=== PATIENT | male | born 1950 | race African-American/Black ===

== ENCOUNTER 2016-11-06 07:15 | Day surgery (SDC) | payer MEDICARE ==
[2016-11-06] MEDS ORDERED: PALONOSETRON HCL 0.25 MG in SODIUM CHLORIDE 50 ML IVPB ONE (08:00)
[2016-11-06] MEDS ORDERED: DEXAMETHASONE INJECTION 20 MG in SODIUM CHLORIDE 50 ML IVPB ONE (08:00)
[2016-11-06] MEDS ORDERED: CYANOCOBALAMIN (VITAMIN B-12) 1000 MCG/1 ML VIAL IM ONE (08:00)
[2016-11-06] MEDS ORDERED: SODIUM CHLORIDE IVPB ONE ×2 (08:30→08:40)
[2016-11-06] MEDS ORDERED: PEMETREXED DISODIUM IVPB ONE (08:30)
[2016-11-06] MEDS ORDERED: CARBOPLATIN IVPB ONE (08:40)
[2016-11-06 10:04] LABS: BASOPHIL 1.2 % (0-2.0); EOSINOPHIL 8.6 % (0-4.5); MCH 29.1 pg (25.7-33.7); MCHC 33.1 g/dl (32.0-35.9); MEAN PLT VOLUME 8.1 fl (7.5-11.1); NEUTROPHILS 47.6 % (42.8-82.8); PLATELET COUNT 276 K/MM3 (134-434); RDW 13.8 % (11.9-15.9); WHITE BLOOD COUNT 5.1 K/mm3 (4.0-10.0)
[2016-11-06] MEDS ORDERED: D5-1/2NS+20 MEQ KCL - 1,000 ML IV SCH ×2 (12:30→15:00)
[2016-11-06] MEDS ORDERED: amLODIPine BESYLATE 5 MG TABLET (FP) PO ONE (12:30)
[2016-11-06 14:17] LABS: ALBUMIN 3.9 g/dl (3.4-5.0); BILIRUBIN,DIRECT 0.1 mg/dL (0.0-0.2)
[2016-11-06 14:19] LABS: BILIRUBIN,TOTAL 0.4 mg/dL (0.2-1.0)
[2016-11-06] MEDS ORDERED: PORTA CATH FLUSH 10 ML IVPUSH ONE (16:10)
[2016-11-06 17:42] VITALS: BP 154/92; PULSE 70
[2016-11-06 17:43] VITALS: TEMP 98.3
== END 2016-11-06 18:44 | disposition home or self-care (01) ==
LOC: JONCCHEMO 07:15 → J7W 11:38 → JONCCHEMO 18:44
PROVIDERS: ATTEND Internal Medicine Hematology & Oncology
PROC: 3E04305 Introduction of Other Antineoplastic into Central Vein, Percutaneous Approach (ICD-10-PCS; principal; 2016-11-06)
PROC: 3E043GC Introduction of Other Therapeutic Substance into Central Vein, Percutaneous Approach (ICD-10-PCS; 2016-11-06)
PROC: 3E0437Z Introduction of Electrolytic and Water Balance Substance into Central Vein, Percutaneous Approach (ICD-10-PCS; 2016-11-06)
PROC: 3E023GC Introduction of Other Therapeutic Substance into Muscle, Percutaneous Approach (ICD-10-PCS; 2016-11-06)
DX: Z51.11 Encounter for antineoplastic chemotherapy (principal); C45.0 Mesothelioma of pleura
CPT/HCPCS: 96361; 96372; 96375; 96411; 96413; J9045; J9305; 36415; 71020-TC; 80076; 85025; 96360; 96367; 96417; J2469

== ENCOUNTER 2016-11-07 07:17 | Day surgery (SDC) | payer MEDICARE ==
[2016-11-07] MEDS ORDERED: PEGFILGRASTIM 6 MG/0.6 ML DISP.SYRIN SQ ONE (08:00)
[2016-11-07] MEDS ORDERED: amLODIPine BESYLATE 5 MG TABLET (FP) PO ONE (09:45)
[2016-11-07 12:50] VITALS: BP 133/89; PULSE 81; TEMP 98
== END 2016-11-07 19:09 | disposition home or self-care (01) ==
LOC: JONCNONCHE 07:17 → J7W 09:34 → JONCNONCHE 19:09
PROVIDERS: ATTEND Internal Medicine Hematology & Oncology
PROC: 3E013GC Introduction of Other Therapeutic Substance into Subcutaneous Tissue, Percutaneous Approach (ICD-10-PCS; principal; 2016-11-07)
DX: C45.0 Mesothelioma of pleura (principal)
CPT/HCPCS: 96372; J2505

== ENCOUNTER 2016-11-27 07:26 | Day surgery (SDC) | payer MEDICARE ==
[2016-11-27] MEDS ORDERED: PALONOSETRON HCL 0.25 MG in SODIUM CHLORIDE 50 ML IVPB ONE (10:00)
[2016-11-27] MEDS ORDERED: CYANOCOBALAMIN (VITAMIN B-12) 1000 MCG/1 ML VIAL IM ONE (10:00)
[2016-11-27] MEDS ORDERED: DEXAMETHASONE INJECTION 10 MG in SODIUM CHLORIDE 50 ML IVPB ONE (10:00)
[2016-11-27] MEDS ORDERED: PEMETREXED DISODIUM IVPB ONE (10:30)
[2016-11-27] MEDS ORDERED: SODIUM CHLORIDE IVPB ONE ×4 (10:30→15:00)
[2016-11-27] MEDS ORDERED: CARBOPLATIN IVPB ONE ×3 (10:40→15:00)
[2016-11-27 10:57] LABS: MCH 29.4 pg (25.7-33.7); MCHC 33.9 g/dl (32.0-35.9); MEAN CELL VOLUME 86.9 fl (80-96); MEAN PLT VOLUME 7.9 fl (7.5-11.1); NEUTROPHILS 47.8 % (42.8-82.8); PLATELET COUNT 298 K/MM3 (134-434); RDW 14.6 % (11.9-15.9); WHITE BLOOD COUNT 4.4 K/mm3 (4.0-10.0)
[2016-11-27 11:22] LABS: ALBUMIN 3.8 g/dl (3.4-5.0); BILIRUBIN,TOTAL 0.3 mg/dL (0.2-1.0); CALCIUM 9.1 mg/dL (8.5-10.1); CREATININE 1.4 mg/dL (0.7-1.3); MAGNESIUM 2.2 mg/dL (1.8-2.4); TOT PROT 7.1 g/dl (6.4-8.2)
[2016-11-27] MEDS ORDERED: SODIUM CHLORIDE 250 ML IV ONE ×2 (14:45→17:30)
[2016-11-27] MEDS ORDERED: PORTA CATH FLUSH 10 ML IVPUSH ONE (15:11)
[2016-11-27] MEDS ORDERED: amLODIPine BESYLATE 5 MG TABLET (FP) PO ONE (19:49)
[2016-11-27] MEDS ORDERED: PANTOPRAZOLE 40 MG TABLET (FP) PO ONE (20:06)
[2016-11-27 20:27] VITALS: BP 157/95; PULSE 72; TEMP 98.1
== END 2016-11-27 20:30 | disposition home or self-care (01) ==
LOC: JONCCHEMO 07:26 → J7W 12:19 → JONCCHEMO 20:30
PROVIDERS: ATTEND Internal Medicine Hematology & Oncology
DX: Z51.11 Encounter for antineoplastic chemotherapy (principal); C45.0 Mesothelioma of pleura
CPT/HCPCS: 36415; 80053; 83735; 85025; 96360; 96361; 96367; 96375; 96411; 96413; 96415; 96417; J2469; J9305

== ENCOUNTER 2016-11-28 07:18 | Day surgery (SDC) | payer MEDICARE ==
[2016-11-28] MEDS ORDERED: PEGFILGRASTIM 6 MG/0.6 ML DISP.SYRIN SQ ONE (10:00)
[2016-11-28 11:33] VITALS: BP 146/85; PULSE 72; TEMP 98.3
== END 2016-11-28 11:35 | disposition home or self-care (01) ==
LOC: JONCCHEMO 07:18 → J7W 11:05 → JONCCHEMO 11:35
PROVIDERS: ATTEND Internal Medicine Hematology & Oncology
PROC: 3E013GC Introduction of Other Therapeutic Substance into Subcutaneous Tissue, Percutaneous Approach (ICD-10-PCS; principal; 2016-11-28)
DX: C45.0 Mesothelioma of pleura (principal)
CPT/HCPCS: 96372; J2505

== ENCOUNTER 2016-12-18 07:20 | Day surgery (SDC) | payer MEDICARE ==
[2016-12-18] MEDS ORDERED: DEXAMETHASONE INJECTION 10 MG in SODIUM CHLORIDE 50 ML IVPB ONE (10:00)
[2016-12-18] MEDS ORDERED: SODIUM CHLORIDE 250 ML IV ONE (10:00)
[2016-12-18] MEDS ORDERED: CYANOCOBALAMIN (VITAMIN B-12) 1000 MCG/1 ML VIAL IM ONE (10:00)
[2016-12-18] MEDS ORDERED: PALONOSETRON HCL 0.25 MG in SODIUM CHLORIDE 50 ML IVPB ONE (10:00)
[2016-12-18] MEDS ORDERED: SODIUM CHLORIDE IVPB ONE ×2 (10:30→10:40)
[2016-12-18] MEDS ORDERED: PEMETREXED DISODIUM IVPB ONE (10:30)
[2016-12-18] MEDS ORDERED: CARBOPLATIN IVPB ONE (10:40)
[2016-12-18 11:00] LABS: BASOPHIL 1.3 % (0-2.0); EOSINOPHIL 3.9 % (0-4.5); MCH 29.3 pg (25.7-33.7); MCHC 33.7 g/dl (32.0-35.9); MEAN CELL VOLUME 87.1 fl (80-96); MEAN PLT VOLUME 7.8 fl (7.5-11.1); NEUTROPHILS 33.8 % (42.8-82.8); PLATELET COUNT 299 K/MM3 (134-434); RDW 14.5 % (11.9-15.9); WHITE BLOOD COUNT 3.3 K/mm3 (4.0-10.0)
[2016-12-18 11:23] LABS: ALBUMIN 4.1 g/dl (3.4-5.0); ALK PHOS 81 U/L (45-117); ANION GAP 3 (8-16); BILIRUBIN,DIRECT 0.1 mg/dL (0.0-0.2); BILIRUBIN,TOTAL 0.4 mg/dL (0.2-1.0); CALCIUM 9.5 mg/dL (8.5-10.1); CO2 33 mmol/L (21-32); CREATININE 1.3 mg/dL (0.7-1.3); GLUCOSE,RANDOM 91 mg/dL (74-106); MAGNESIUM 2.2 mg/dL (1.8-2.4); SGOT/AST 33 U/L (15-37); SGPT/ALT 53 U/L (12-78); TOT PROT 7.5 g/dl (6.4-8.2)
[2016-12-18] MEDS ORDERED: PORTA CATH FLUSH 10 ML IVPUSH ONE (11:53)
[2016-12-18 15:34] VITALS: BP 145/96; PULSE 67; TEMP 98.1
== END 2016-12-18 17:56 | disposition home or self-care (01) ==
LOC: JONCCHEMO 07:20 → J7W 11:45 → JONCCHEMO 17:56
PROVIDERS: ATTEND Internal Medicine Hematology & Oncology
PROC: 3E04305 Introduction of Other Antineoplastic into Central Vein, Percutaneous Approach (ICD-10-PCS; principal; 2016-12-18)
PROC: 3E043GC Introduction of Other Therapeutic Substance into Central Vein, Percutaneous Approach (ICD-10-PCS; 2016-12-18)
PROC: 3E0437Z Introduction of Electrolytic and Water Balance Substance into Central Vein, Percutaneous Approach (ICD-10-PCS; 2016-12-18)
DX: Z51.11 Encounter for antineoplastic chemotherapy (principal); C45.0 Mesothelioma of pleura
CPT/HCPCS: 96361; 96375; 96411; 96413; J9045; J9305; 36415; 80053; 80076; 83735; 85025; 96417; J2469

== ENCOUNTER 2016-12-19 07:42 | Day surgery (SDC) | payer MEDICARE ==
[2016-12-19] MEDS ORDERED: PEGFILGRASTIM 6 MG/0.6 ML DISP.SYRIN SQ ONE (10:00)
[2016-12-19 11:32] VITALS: BP 135/85; PULSE 75; TEMP 98
== END 2016-12-19 12:32 | disposition home or self-care (01) ==
LOC: JONCCHEMO 07:42 → J7W 11:29 → JONCCHEMO 12:32
PROVIDERS: ATTEND Internal Medicine Hematology & Oncology
PROC: 3E013GC Introduction of Other Therapeutic Substance into Subcutaneous Tissue, Percutaneous Approach (ICD-10-PCS; principal; 2016-12-19)
DX: C45.0 Mesothelioma of pleura (principal); I10 Essential (primary) hypertension; E78.00 Pure hypercholesterolemia, unspecified; M19.91 Primary osteoarthritis, unspecified site; Z87.891 Personal history of nicotine dependence
CPT/HCPCS: 96372; J2505

== ENCOUNTER 2017-01-08 07:44 | Day surgery (SDC) | payer MEDICARE ==
[2017-01-08] MEDS ORDERED: SODIUM CHLORIDE 250 ML IV ONE (08:00)
[2017-01-08] MEDS ORDERED: DEXAMETHASONE INJECTION 10 MG in SODIUM CHLORIDE 50 ML IVPB ONE (08:30)
[2017-01-08] MEDS ORDERED: CYANOCOBALAMIN (VITAMIN B-12) 1000 MCG/1 ML VIAL IM ONE (08:30)
[2017-01-08] MEDS ORDERED: PALONOSETRON HCL 0.25 MG in SODIUM CHLORIDE 50 ML IVPB ONE (08:30)
[2017-01-08] MEDS ORDERED: SODIUM CHLORIDE IVPB ONE ×3 (09:00→13:30)
[2017-01-08] MEDS ORDERED: PEMETREXED DISODIUM IVPB ONE (09:00)
[2017-01-08] MEDS ORDERED: CARBOPLATIN IVPB ONE ×2 (09:10→13:30)
[2017-01-08 10:23] LABS: BASOPHIL 1.5 % (0-2.0); EOSINOPHIL 6.4 % (0-4.5); MCH 30.4 pg (25.7-33.7); MCHC 34.6 g/dl (32.0-35.9); MEAN CELL VOLUME 87.7 fl (80-96); MEAN PLT VOLUME 6.6 fl (7.5-11.1); NEUTROPHILS 47.1 % (42.8-82.8); PLATELET COUNT 209 K/MM3 (134-434); RDW 16.6 % (11.9-15.9); WHITE BLOOD COUNT 3.6 K/mm3 (4.0-10.0)
[2017-01-08 10:40] LABS: ALBUMIN 3.8 g/dl (3.4-5.0); ANION GAP 7 (8-16); BILIRUBIN,DIRECT 0.1 mg/dL (0.0-0.2); BILIRUBIN,TOTAL 0.6 mg/dL (0.2-1.0); CALCIUM 9.2 mg/dL (8.5-10.1); CO2 31 mmol/L (21-32); CREATININE 1.4 mg/dL (0.7-1.3); GLUCOSE,RANDOM 97 mg/dL (74-106); MAGNESIUM 2.2 mg/dL (1.8-2.4); SGOT/AST 21 U/L (15-37); SGPT/ALT 36 U/L (12-78)
[2017-01-08 10:42] LABS: ALK PHOS 91 U/L (45-117); TOT PROT 7.1 g/dl (6.4-8.2)
[2017-01-08] MEDS ORDERED: PORTA CATH FLUSH 10 ML IVPUSH ONE (11:57)
[2017-01-08 15:23] VITALS: BP 138/69; PULSE 67; TEMP 98.2
== END 2017-01-08 15:40 | disposition home or self-care (01) ==
LOC: JONCCHEMO 07:44 → J7W 11:55 → JONCCHEMO 15:40
PROVIDERS: ATTEND Internal Medicine Hematology & Oncology
PROC: 3E04305 Introduction of Other Antineoplastic into Central Vein, Percutaneous Approach (ICD-10-PCS; principal; 2017-01-08)
PROC: 3E043GC Introduction of Other Therapeutic Substance into Central Vein, Percutaneous Approach (ICD-10-PCS; 2017-01-08)
PROC: 3E0437Z Introduction of Electrolytic and Water Balance Substance into Central Vein, Percutaneous Approach (ICD-10-PCS; 2017-01-08)
DX: Z51.11 Encounter for antineoplastic chemotherapy (principal); C45.0 Mesothelioma of pleura
CPT/HCPCS: 96361; 96375; 96411; 96413; J9045; J9305; 36415; 80053; 80076; 83735; 85025; 96417; J2469

== ENCOUNTER 2017-01-09 07:29 | Day surgery (SDC) | payer MEDICARE ==
[2017-01-09] MEDS ORDERED: PEGFILGRASTIM 6 MG/0.6 ML DISP.SYRIN SQ ONE (08:00)
[2017-01-09 13:55] VITALS: BP 129/79; PULSE 74; TEMP 98.4
== END 2017-01-09 18:29 | disposition home or self-care (01) ==
LOC: JONCCHEMO 07:29 → J7W 13:40 → JONCCHEMO 18:29
PROVIDERS: ATTEND Internal Medicine Hematology & Oncology
PROC: 3E013GC Introduction of Other Therapeutic Substance into Subcutaneous Tissue, Percutaneous Approach (ICD-10-PCS; principal; 2017-01-09)
DX: C45.0 Mesothelioma of pleura (principal)
CPT/HCPCS: 96372; J2505

== ENCOUNTER 2017-07-07 07:27 | Day surgery (SDC) | payer MEDICARE, OTHER ==
[2017-07-07] MEDS ORDERED: PALONOSETRON HCL 0.25 MG/5 ML VIAL IVPUSH ONE (10:00)
[2017-07-07] MEDS ORDERED: DEXAMETHASONE SOD PHOSPHATE 10 MG/1 ML VIAL IVPUSH ONE (10:00)
[2017-07-07] MEDS ORDERED: CYANOCOBALAMIN (VITAMIN B-12) 1000 MCG/1 ML VIAL IM ONE (10:00)
[2017-07-07] MEDS ORDERED: SODIUM CHLORIDE IVPB ONE ×2 (10:30→10:40)
[2017-07-07] MEDS ORDERED: PEMETREXED DISODIUM IVPB ONE (10:30)
[2017-07-07] MEDS ORDERED: CARBOPLATIN IVPB ONE (10:40)
[2017-07-07 11:46] LABS: BASO % 1.1 % (0-2.0); EOS % 2.7 % (0-4.5); HEMATOCRIT 38.9 % (35.4-49); HEMOGLOBIN 12.7 GM/dL (11.7-16.9); LYMPH % 25.4 % (8-40); MCH 28.8 pg (25.7-33.7); MCHC 32.7 g/dl (32.0-35.9); MEAN CELL VOLUME 88.1 fl (80-96); MEAN PLT VOLUME 7.1 fl (7.5-11.1); MONO % 10.9 % (3.8-10.2); NEUT % 59.9 % (42.8-82.8); PLATELET COUNT 359 K/MM3 (134-434); RBC 4.42 M/mm3 (4.00-5.60); RDW 13.3 % (11.9-15.9); WHITE BLOOD COUNT 6.9 K/mm3 (4.0-10.0)
[2017-07-07 12:13] LABS: ALBUMIN 3.6 g/dl (3.4-5.0); ALK PHOS 64 U/L (45-117); ANION GAP 6 (8-16); BILIRUBIN,DIRECT < 0.2 mg/dL (0.0-0.2); BILIRUBIN,TOTAL 0.6 mg/dL (0.2-1.0); BLOOD UREA NITROGEN 18 mg/dL (7-18); CALCIUM 8.9 mg/dL (8.5-10.1); CHLORIDE 104 mmol/L (98-107); CO2 28 mmol/L (21-32); CREATININE 1.6 mg/dL (0.7-1.3); GLUCOSE,RANDOM 99 mg/dL (74-106); MAGNESIUM 2.3 mg/dL (1.8-2.4); POTASSIUM 4.3 mmol/L (3.5-5.1); SGOT/AST 11 U/L (15-37); SGPT/ALT 19 U/L (12-78); SODIUM 138 mmol/L (136-145); TOT PROT 7.8 g/dl (6.4-8.2)
[2017-07-07] MEDS ORDERED: SODIUM CHLORIDE 250 ML IV ONE (13:30)
[2017-07-07] MEDS ORDERED: amLODIPine BESYLATE 5 MG TABLET (FP) PO ONE (14:00)
[2017-07-07 17:25] VITALS: TEMP 98
[2017-07-07 17:35] VITALS: BP 115/78; PULSE 79
[2017-07-07] MEDS ORDERED: PORTA CATH FLUSH 10 ML IVPUSH ONE (17:35)
== END 2017-07-07 16:45 | disposition home or self-care (01) ==
LOC: JONCCHEMO 07:27 → J7W 13:00 → JONCCHEMO 16:45
PROVIDERS: ATTEND Internal Medicine Hematology & Oncology
PROC: 3E04305 Introduction of Other Antineoplastic into Central Vein, Percutaneous Approach (ICD-10-PCS; principal; 2017-07-07)
PROC: 3E043GC Introduction of Other Therapeutic Substance into Central Vein, Percutaneous Approach (ICD-10-PCS; 2017-07-07)
PROC: 3E0437Z Introduction of Electrolytic and Water Balance Substance into Central Vein, Percutaneous Approach (ICD-10-PCS; 2017-07-07)
DX: Z51.11 Encounter for antineoplastic chemotherapy (principal); C45.0 Mesothelioma of pleura
CPT/HCPCS: 36415; 80053; 80076; 83735; 85025; 96361; 96367; 96372; 96375; 96411; 96413; 96417; J1100; J2469; J9305

== ENCOUNTER 2017-07-08 07:32 | Day surgery (SDC) | payer MEDICARE, OTHER ==
[2017-07-08] MEDS ORDERED: PEGFILGRASTIM 6 MG/0.6 ML DISP.SYRIN SQ ONE (10:00)
[2017-07-08 13:40] VITALS: BP 124/77; PULSE 66; TEMP 98
== END 2017-07-08 14:00 | disposition home or self-care (01) ==
LOC: JONCNONCHE 07:32 → J7W 13:10 → JONCNONCHE 14:00
PROVIDERS: ATTEND Internal Medicine Hematology & Oncology
PROC: 3E013GC Introduction of Other Therapeutic Substance into Subcutaneous Tissue, Percutaneous Approach (ICD-10-PCS; principal; 2017-07-08)
DX: C45.0 Mesothelioma of pleura (principal)
CPT/HCPCS: 96372; 96401; J2505

== ENCOUNTER 2017-07-28 07:28 | Day surgery (SDC) | payer MEDICARE, OTHER ==
[2017-07-28] MEDS ORDERED: SODIUM CHLORIDE 250 ML IV ONE (08:00)
[2017-07-28] MEDS ORDERED: CYANOCOBALAMIN (VITAMIN B-12) 1000 MCG/1 ML VIAL IM ONE (08:30)
[2017-07-28] MEDS ORDERED: DEXAMETHASONE SOD PHOSPHATE 10 MG/1 ML VIAL IVPUSH ONE (08:30)
[2017-07-28] MEDS ORDERED: PALONOSETRON HCL 0.25 MG/5 ML VIAL IVPUSH ONE (08:30)
[2017-07-28 08:59] LABS: EOS % 1.3 % (0-4.5); HEMATOCRIT 35.2 % (35.4-49); HEMOGLOBIN 11.7 GM/dL (11.7-16.9); LYMPH % 22.3 % (8-40); MCH 29.2 pg (25.7-33.7); MCHC 33.3 g/dl (32.0-35.9); MEAN CELL VOLUME 87.8 fl (80-96); MEAN PLT VOLUME 6.9 fl (7.5-11.1); MONO % 14.9 % (3.8-10.2); NEUT % 60.5 % (42.8-82.8); PLATELET COUNT 302 K/MM3 (134-434); RBC 4.01 M/mm3 (4.00-5.60); WHITE BLOOD COUNT 5.4 K/mm3 (4.0-10.0)
[2017-07-28] MEDS ORDERED: SODIUM CHLORIDE IVPB ONE (09:00)
[2017-07-28] MEDS ORDERED: PEMETREXED DISODIUM IVPB ONE (09:00)
[2017-07-28 09:30] LABS: ALBUMIN 3.5 g/dl (3.4-5.0); ALK PHOS 66 U/L (45-117); ANION GAP 5 (8-16); BILIRUBIN,DIRECT < 0.2 mg/dL (0.0-0.2); BILIRUBIN,TOTAL 0.4 mg/dL (0.2-1.0); BLOOD UREA NITROGEN 13 mg/dL (7-18); CALCIUM 8.5 mg/dL (8.5-10.1); CHLORIDE 105 mmol/L (98-107); CO2 30 mmol/L (21-32); CREATININE 1.5 mg/dL (0.7-1.3); GLUCOSE,RANDOM 92 mg/dL (74-106); MAGNESIUM 1.9 mg/dL (1.8-2.4); POTASSIUM 3.9 mmol/L (3.5-5.1); SGOT/AST 13 U/L (15-37); SGPT/ALT 23 U/L (12-78); SODIUM 140 mmol/L (136-145); TOT PROT 7.6 g/dl (6.4-8.2)
[2017-07-28 09:38] VITALS: TEMP 98.4
[2017-07-28] MEDS ORDERED: PORTA CATH FLUSH 10 ML IVPUSH ONE (09:38)
[2017-07-28 15:20] VITALS: BP 130/81; PULSE 87
== END 2017-07-28 12:40 | disposition home or self-care (01) ==
LOC: JONCCHEMO 07:28 → J7W 09:30 → JONCCHEMO 12:40
PROVIDERS: ATTEND Internal Medicine Hematology & Oncology
DX: Z51.11 Encounter for antineoplastic chemotherapy (principal); C45.0 Mesothelioma of pleura
CPT/HCPCS: 36415; 80053; 80076; 83735; 85025; 96361; 96372; 96375; 96411; 96413; 96417; J1100; J2469; J9305

== ENCOUNTER 2017-07-29 07:35 | Day surgery (SDC) | payer MEDICARE, OTHER ==
[2017-07-29] MEDS ORDERED: PEGFILGRASTIM 6 MG/0.6 ML DISP.SYRIN SQ ONE (08:00)
[2017-07-29 11:24] VITALS: BP 130/76; PULSE 73; TEMP 98.3
== END 2017-07-29 11:00 | disposition home or self-care (01) ==
LOC: JONCNONCHE 07:35 → J7W 10:45 → JONCNONCHE 11:00
PROVIDERS: ATTEND Internal Medicine Hematology & Oncology
PROC: 3E013GC Introduction of Other Therapeutic Substance into Subcutaneous Tissue, Percutaneous Approach (ICD-10-PCS; principal; 2017-07-29)
DX: C45.0 Mesothelioma of pleura (principal)
CPT/HCPCS: 96372; J2505

== ENCOUNTER 2017-08-11 12:05 | Observation (INO) | payer MEDICARE, OTHER ==
--- NOTE | 2017-08-11 13:12 | PDOC ---
History of Present Illness - General History Source: Patient Exam Limitations: No Limitations - History of Present Illness Initial Comments: 08/11/17 15:06 The patient is a 67 year old male, with a significant past medical history of Asthma, HLD, CHF, Kidney stones, Mesothelioma who presents to the emergency department with allergic reaction to [place] 3 supplements. Patient reports taking [place] 3 pills 3 days ago when he suddenly broke out in hives. Patient experienced tingling around his lips, hives on abdomen and throat swelling. Patient went to [facility] for these symptoms and was given benadryl and Prednisone. Patients symptom still persist and presents to the ED for further evaluation. Patient denies chest pain, headache or dizziness. Patient denies fever, chills, abdominal pain, nausea, vomit, diarrhea or constipation. Patient denies dysuria, frequency, urgency or hematuria. Patient denies sick contacts or recent travel. Allergies: sulfur Past surgical history: R knee Sx Social history: Former smoker (quit 1 year ago) PCP: Not on staff Hem/Onc: Trent <Jina Ramsussen - Last Filed: 08/11/17 15:06> <Yuki Yusuf - Last Filed: 08/11/17 16:37> - General Chief Complaint: Allergic Reaction Stated Complaint: SOB (PCP SENT) Time Seen by Provider: 08/11/17 12:29 Past History <Jina Rasmussen - Last Filed: 08/11/17 15:06> - Past Medical History Asthma: Yes COPD: No Hypercholesterolemia: Yes Kidney Stones: Yes Lung CA: (MESOTHELIOMA) - Suicide/Smoking/Psychosocial Hx Smoking History: Former smoker Have you smoked in the past 12 months: No If you are a former smoker, when did you quit?: LAST YEAR Information on smoking cessation initiated: No <Yuki Yusuf - Last Filed: 08/11/17 16:37> - Past Medical History Allergies/Adverse Reactions: Allergies Allergy/AdvReac Type Severity Reaction Status Date / Time sulfur [From Sulfur-8] Allergy Mild Rash Verified 08/11/17 12:14 Home Medications: Ambulatory Orders Amlodipine Besylate [Norvasc -] 5 mg PO DAILY 08/11/17 Aspirin [Ecotrin] 81 mg PO DAILY 08/11/17 Carvedilol 12.5 mg PO DAILY 08/11/17 Fenofibrate [Lipofen] 150 mg PO DAILY 08/11/17 Folic Acid 1 mg PO DAILY 08/11/17 Furosemide [Lasix] 40 mg PO DAILY 08/11/17 Losartan Potassium 25 mg PO DAILY 08/11/17 Omeprazole Magnesium [Prilosec Otc] 20 mg PO DAILY 08/11/17 Review of Systems - Review of Systems Able to Perform ROS?: Yes Comments:: 08/11/17 15:07 GENERAL/CONSTITUTIONAL: No fever or chills. No weakness. HEAD, EYES, EARS, NOSE AND THROAT: No change in vision. No ear pain or discharge. No sore throat. +throat swelling. GASTROINTESTINAL: No nausea, vomiting, diarrhea or constipation. GENITOURINARY: No dysuria, frequency, or change in urination. CARDIOVASCULAR: No chest pain. RESPIRATORY: +SOB. No cough, wheezing, or hemoptysis. MUSCULOSKELETAL: No joint or muscle swelling or pain. No neck or back pain. SKIN: No rash NEUROLOGIC: No headache, vertigo, loss of consciousness, or change in strength/ sensation. ENDOCRINE: No increased thirst. No abnormal weight change. HEMATOLOGIC/LYMPHATIC: No anemia, easy bleeding, or history of blood clots. ALLERGIC/IMMUNOLOGIC: +hives. No hives or skin allergy. <Jina Rasmussen - Last Filed: 08/11/17 15:06> *Physical Exam - Vital Signs Last Vital Signs Temp Pulse Resp BP Pulse Ox 98.3 F 103 H 18 131/68 95 08/11/17 12:09 08/11/17 12:09 08/11/17 12:09 08/11/17 12:09 08/11/17 12:09 <Jina Rasmussen - Last Filed: 08/11/17 15:06> - Vital Signs Last Vital Signs Temp Pulse Resp BP Pulse Ox 98.3 F 103 H 18 131/68 95 08/11/17 12:09 08/11/17 12:09 08/11/17 12:09 08/11/17 12:09 08/11/17 12:09 - Physical Exam Comments: GENERAL: Awake, alert, and fully oriented, in no acute distress HEAD: No signs of trauma EYES: PERRLA, EOMI, sclera anicteric, conjunctiva clear ENT: Auricles normal inspection, hearing grossly normal, nares patent, oropharynx clear without exudates. Moist mucosa NECK: Normal ROM, supple, no lymphadenopathy, JVD, or masses LUNGS: Breath sounds equal, clear to auscultation bilaterally. No wheezes, and no crackles HEART: Regular rate and rhythm, normal S1 and S2, no murmurs, rubs or gallops ABDOMEN: Soft, nontender, normoactive bowel sounds. No guarding, no rebound. No masses EXTREMITIES: Normal range of motion, no edema. No clubbing or cyanosis. No cords, erythema, or tenderness NEUROLOGICAL: Cranial nerves II through XII grossly intact. Normal speech, normal gait SKIN: Warm, Dry, normal turgor. Diffuse urticarial rash. <Yuki Yusuf - Last Filed: 08/11/17 16:37> Heart Score/ECG Review - ECG Impressions Comment:: EKG read 15:26- NSR 97 bpm, no acute ST/T changes <Yuki Yusuf - Last Filed: 08/11/17 16:37> ED Treatment Course - LABORATORY CBC & Chemistry Diagram: 08/11/17 13:35 08/11/17 13:35 - ADDITIONAL ORDERS Additional order review: Laboratory Results 08/11/17 13:35 Sodium 141 Potassium 4.0 Chloride 104 Carbon Dioxide 28 Anion Gap 9 BUN 35 H D Creatinine 1.8 H Creat Clearance w eGFR 37.82 Random Glucose 120 H D Calcium 9.0 Total Bilirubin 0.6 D AST 21 D ALT 24 Alkaline Phosphatase 79 Total Protein 7.8 Albumin 3.6 08/11/17 13:35 RBC 4.23 MCV 88.8 MCHC 32.9 RDW 14.9 MPV 7.5 Neutrophils % 77.7 D Lymphocytes % 16.7 D Monocytes % 4.9 Eosinophils % 0.4 Basophils % 0.3 - Medications Given in the ED: ED Medications Discontinued Medications Generic Name Dose Route Start Last Admin Trade Name Freq PRN Reason Stop Dose Admin Diphenhydramine HCl 25 mg 08/11/17 13:13 08/11/17 13:48 Benadryl Injection - IVPUSH 08/11/17 13:14 25 mg ONCE ONE Administration Famotidine/Sodium Chloride 20 mg in 50 mls @ 100 mls/hr 08/11/17 14:30 14:17 Pepcid 20 Mg Premixed Ivpb - IVPB 08/11/17 14:59 100 mls/hr ONCE ONE Administration Sodium Chloride 1,000 mls @ 1,000 mls/hr 08/11/17 13:13 08/11/17 13:48 Normal Saline - IV 08/11/17 14:12 1,000 mls/hr ASDIR STA Administration Methylprednisolone Sodium Succinate 125 mg 08/11/17 13:13 08/11/17 13:48 Solu-Medrol - IVPB 08/11/17 13:14 125 mg ONCE ONE Administration <Jina Rasmussen - Last Filed: 08/11/17 15:06> - LABORATORY CBC & Chemistry Diagram: 08/11/17 13:35 08/11/17 13:35 <Yuki Yusuf - Last Filed: 08/11/17 16:37> Medical Decision Making - Medical Decision Making 08/11/17 14:56 Pt reassessed. The rash is worsening now- it was previously only on the arms and back, but now has spread to the abdomen. He states that he has respiratory symptoms as well. Will move to monitored bed and give epi, as well as additional dose of benadryl. 08/11/17 15:15 Reassessed. Rash has improved s/p epinephrine, no c/o palpitations. No tachycardia on monitor during administration. I have discussed with Dr. Ramirez for placement on observation. <Yuki Yusuf - Last Filed: 08/11/17 16:37> *DC/Admit/Observation/Transfer - Attestations Scribe Attestion: 08/11/17 15:07 Documentation prepared by Jina Rasmussen, acting as medical office representative for Yuki Yusuf MD <Jina Rasmussen - Last Filed: 08/11/17 15:06> - Discharge Dispostion Admit: Yes <Yuki Yusuf - Last Filed: 08/11/17 16:37> Diagnosis at time of Disposition: Allergic reaction Qualifiers: Encounter type: initial encounter Qualified Code(s): T78.40XA - Allergy, unspecified, initial encounter - Discharge Dispostion Condition at time of disposition: Stable
[2017-08-11] MEDS ORDERED: SODIUM CHLORIDE 1,000 ML IV STA (13:13)
[2017-08-11] MEDS ORDERED: methylPREDNISolone NA SUCC 125 MG/2 ML VIAL IVPB ONE (13:13)
[2017-08-11] MEDS ORDERED: methylPREDNISolone NA SUCC 125 MG/2 ML VIAL ONE (13:39)
[2017-08-11 13:41] LABS: BASO % 0.3 % (0-2.0); EOS % 0.4 % (0-4.5); HEMATOCRIT 37.6 % (35.4-49); HEMOGLOBIN 12.4 GM/dL (11.7-16.9); LYMPH % 16.7 % (8-40); MCH 29.2 pg (25.7-33.7); MCHC 32.9 g/dl (32.0-35.9); MEAN CELL VOLUME 88.8 fl (80-96); MEAN PLT VOLUME 7.5 fl (7.5-11.1); MONO % 4.9 % (3.8-10.2); NEUT % 77.7 % (42.8-82.8); PLATELET COUNT 320 K/MM3 (134-434); RBC 4.23 M/mm3 (4.00-5.60); RDW 14.9 % (11.9-15.9); WHITE BLOOD COUNT 11.4 K/mm3 (4.0-10.0)
[2017-08-11 14:07] LABS: ALBUMIN 3.6 g/dl (3.4-5.0); ANION GAP 9 (8-16); BLOOD UREA NITROGEN 35 mg/dL (7-18); CHLORIDE 104 mmol/L (98-107); CO2 28 mmol/L (21-32); CREATININE 1.8 mg/dL (0.7-1.3); GLUCOSE,RANDOM 120 mg/dL (74-106); SGPT/ALT 24 U/L (12-78); SODIUM 141 mmol/L (136-145)
[2017-08-11 14:08] LABS: ALK PHOS 79 U/L (45-117); BILIRUBIN,TOTAL 0.6 mg/dL (0.2-1.0); TOT PROT 7.8 g/dl (6.4-8.2)
[2017-08-11] MEDS ORDERED: FAMOTIDINE 20 MG/50 ML IVPB 20 MG/50 ML MG IVPB ONE (14:30)
[2017-08-11 14:34] LABS: SGOT/AST 21 U/L (15-37)
[2017-08-11] MEDS ORDERED: EPINEPHrine 1:1,000 0.3 MG/0.3 ML SYR IM ONE (14:41)
[2017-08-11] MEDS ORDERED: EPINEPHrine/PF 1 MG/1 ML (1:1,000) AMPULE ONE (14:46)
[2017-08-11] MEDS ORDERED: hydrOXYzine HCL 25 MG TABLET (FP) PO ONE (16:50)
--- NOTE | 2017-08-11 19:52 | HP ---
Admitting History and Physical - Primary Care Physician PCP: Giovanni Ramirez - Admission Chief Complaint: reaction to po supplements History of Present Illness: 67 year old male, with a significant past medical history of Asthma, HLD, CHF, Kidney stones, Mesothelioma who presents to the emergency department with allergic reaction to [place] 3 supplements. Patient reports taking [place] 3 pills 3 days ago when he suddenly broke out in hives. Patient experienced tingling around his lips, hives on abdomen and throat swelling. Patient went to [facility] for these symptoms and was given benadryl and Prednisone. Patients symptom still persist and presents to the ED for further evaluation. - Past Medical History Cardiovascular: Yes: CHF, Hyperlipdemia Pulmonary: Yes: Asthma - Smoking History Smoking history: Former smoker Have you smoked in the past 12 months: No If you are a former smoker, when did you quit?: LAST YEAR Home Medications - Allergies Allergies/Adverse Reactions: Allergies Allergy/AdvReac Type Severity Reaction Status Date / Time sulfur [From Sulfur-8] Allergy Mild Rash Verified 08/11/17 12:14 - Home Medications Home Medications: Ambulatory Orders Amlodipine Besylate [Norvasc -] 5 mg PO DAILY 08/11/17 Aspirin [Ecotrin] 81 mg PO DAILY 08/11/17 Carvedilol 12.5 mg PO DAILY 08/11/17 Fenofibrate [Lipofen] 150 mg PO DAILY 08/11/17 Folic Acid 1 mg PO DAILY 08/11/17 Furosemide [Lasix] 40 mg PO DAILY 08/11/17 Losartan Potassium 25 mg PO DAILY 08/11/17 Omeprazole Magnesium [Prilosec Otc] 20 mg PO DAILY 08/11/17 Physical Examination Vital Signs: Vital Signs Temperature 98.3 F 08/11/17 12:09 Pulse Rate 98 H 08/11/17 15:16 Respiratory Rate 22 08/11/17 15:16 Blood Pressure 139/81 08/11/17 15:16 O2 Sat by Pulse Oximetry (%) 99 08/11/17 15:16 Labs: CBC, BMP 08/11/17 13:35 08/11/17 13:35 Problem List - Problems (1) Allergic reaction Code(s): T78.40XA - ALLERGY, UNSPECIFIED, INITIAL ENCOUNTER Qualifiers: Encounter type: initial encounter Qualified Code(s): T78.40XA - Allergy, unspecified, initial encounter Assessment/Plan Laboratory Tests 08/11/17 08/11/17 13:35 13:35 WBC 11.4 H D RBC 4.23 Hgb 12.4 Hct 37.6 MCV 88.8 MCH 29.2 MCHC 32.9 RDW 14.9 Plt Count 320 MPV 7.5 Neutrophils % 77.7 D Lymphocytes % 16.7 D Monocytes % 4.9 Eosinophils % 0.4 Basophils % 0.3 Sodium 141 Potassium 4.0 Chloride 104 Carbon Dioxide 28 Anion Gap 9 BUN 35 H D Creatinine 1.8 H Creat Clearance w eGFR 37.82 Random Glucose 120 H D Calcium 9.0 Total Bilirubin 0.6 D AST 21 D ALT 24 Alkaline Phosphatase 79 Total Protein 7.8 Albumin 3.6
[2017-08-11] MEDS ORDERED: methylPREDNISolone NA SUCC 40 MG/1 ML VIAL ONE (20:21)
[2017-08-11] MEDS: methylPREDNISolone NA SUCC 40 MG/1 ML VIAL IVPUSH SCH (20:39)
--- NOTE | 2017-08-11 21:57 | CONSULT ---
Consult - text type - Consultation Consultation Note: PAtient well known to our service 67 y/o with mesothelioma on carbo/alimta--last cycle 07/28, comes in with recurrent hives today. 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 EMS was called who took hoik to [place]. He was discuharged fronm there ons teroids. He did take omega XL on friday night Denies any fever/chiolls/cough/SOB/abdominal pain. He comes back today as hives recurred He was given steroids,pepcid, benadryl, epi in THE ER Last Vital Signs Temp Pulse Resp BP Pulse Ox 98.3 F 78 16 136/70 98 08/11/17 12:09 08/11/17 21:40 08/11/17 21:40 08/11/17 21:40 08/11/17 21:40 Cor: RSR, No murmurs, No gallops Lungs: Clear to P&A Abd: Soft, Normal bowel sounds, No organomegaly Ext:No significant edema Skin: erythematous rash over thighs, abdomen Abnormal Lab Results 08/11/17 08/11/17 13:35 13:35 WBC 11.4 H D BUN 35 H D Creatinine 1.8 H Random Glucose 120 H D Home Medication List Medication Instructions Recorded Confirmed Type Amlodipine Besylate [Norvasc -] 5 mg PO DAILY 08/11/17 08/11/17 History Aspirin [Ecotrin] 81 mg PO DAILY 08/11/17 08/11/17 History Carvedilol 12.5 mg PO DAILY 08/11/17 08/11/17 History Fenofibrate [Lipofen] 150 mg PO DAILY 08/11/17 08/11/17 History Folic Acid 1 mg PO DAILY 08/11/17 08/11/17 History Furosemide [Lasix] 40 mg PO DAILY 08/11/17 08/11/17 History Losartan Potassium 25 mg PO DAILY 08/11/17 08/11/17 History Omeprazole Magnesium [Prilosec Otc] 20 mg PO DAILY 08/11/17 08/11/17 History Active Medications Generic Name Dose Route Start Last Admin Trade Name Freq PRN Reason Stop Dose Admin Amlodipine Besylate 5 mg 08/12/17 10:00 Norvasc - PO DAILY JANINE Aspirin 81 mg 08/12/17 10:00 Ecotrin - PO DAILY JANINE Carvedilol 12.5 mg 08/12/17 10:00 Coreg - PO DAILY JANINE Diphenhydramine HCl 25 mg 08/11/17 19:55 Benadryl - PO Q6H PRN FOR ITCHING Folic Acid 1 mg 08/12/17 10:00 Folic Acid - PO DAILY JANINE Methylprednisolone Sodium Succinate 40 mg 08/11/17 21:00 08/11/17 20:39 Solu-Medrol - IVPUSH 40 mg Q6H-IV JANINE Administration A/P 67 y/o with mesothelioma on carbo/alimta--last cycle 07/28, comes in with recurrent hives today. 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 EMS was called who took hoik to [facility]. He was discuharged fronm there ons teroids. He did take omega XL on friday night Denies any fever/cholls/cough/SOB/abdominal pain/bladder/bowel symptoms He comes back today as hives recurred He was given steroids,pepcid, benadryl, epi in THE ER ? allergic reaction to omega XL vs chemotherapy--less likely given time frame vs losartan Will request derm/allergy consults agree with monitoring/steroids holding losartan topical + systemmic steroids monitor for worseing symptoms
--- NOTE | 2017-08-11 23:06 | EKG ---
Test Reason : Blood Pressure : / mmHG Vent. Rate : 097 BPM Atrial Rate : 097 BPM P-R Int : 000 ms QRS Dur : 080 ms QT Int : 334 ms P-R-T Axes : 038 016 010 degrees QTc Int : 424 ms SINUS RHYTHM WITH 1ST DEGREE A-V BLOCK SEPTAL INFARCT , AGE UNDETERMINED ABNORMAL ECG NO PREVIOUS ECGS AVAILABLE Confirmed by GLADIS JOHNSON MD ([id number]) on 08/11/2017 11:05:53 PM Referred By: Confirmed By:GLADIS JOHNSON MD
[2017-08-12 00:27] VITALS: BMI 39.5
[2017-08-12] MEDS: methylPREDNISolone NA SUCC 40 MG/1 ML VIAL IVPUSH SCH ×4 (02:27→22:25)
[2017-08-12] MEDS ORDERED: PT OWN MED DRAWER 7, Y5N ONE ×2 (07:39→09:35)
[2017-08-12 07:45] LABS: BASO % 0.1 % (0-2.0); HEMATOCRIT 28.9 % (35.4-49); HEMOGLOBIN 9.6 GM/dL (11.7-16.9); LYMPH % 6.6 % (8-40); MCH 29.3 pg (25.7-33.7); MCHC 33.1 g/dl (32.0-35.9); MEAN CELL VOLUME 88.4 fl (80-96); MEAN PLT VOLUME 7.5 fl (7.5-11.1); MONO % 1.8 % (3.8-10.2); NEUT % 91.5 % (42.8-82.8); PLATELET COUNT 241 K/MM3 (134-434); RBC 3.27 M/mm3 (4.00-5.60)
[2017-08-12 08:06] LABS: ANION GAP 8 (8-16); BLOOD UREA NITROGEN 28 mg/dL (7-18); CALCIUM 8.6 mg/dL (8.5-10.1); CHLORIDE 105 mmol/L (98-107); CO2 28 mmol/L (21-32); CREATININE 1.5 mg/dL (0.7-1.3); GLUCOSE,RANDOM 128 mg/dL (74-106); POTASSIUM 4.2 mmol/L (3.5-5.1); SGOT/AST 10 U/L (15-37); SGPT/ALT 18 U/L (12-78); SODIUM 141 mmol/L (136-145)
[2017-08-12 08:08] LABS: ALK PHOS 69 U/L (45-117); BILIRUBIN,TOTAL 0.3 mg/dL (0.2-1.0); TOT PROT 6.6 g/dl (6.4-8.2)
[2017-08-12] MEDS: CARVEDILOL 12.5 MG TABLET (FP) PO SCH (09:37)
[2017-08-12] MEDS: ASPIRIN COATED 81 MG TABLET.EC PO SCH (09:38)
[2017-08-12] MEDS: FOLIC ACID 1 MG TABLET (FP) PO SCH (09:38)
[2017-08-12] MEDS: TRIAMCINOLONE ACET 0.1% CREAM 15 GM TUBE TP SCH ×2 (09:39→22:25)
[2017-08-12] MEDS: amLODIPine BESYLATE 5 MG TABLET (FP) PO SCH (09:39)
[2017-08-12] MEDS: diphenhydrAMINE HCL 25 MG CAPSULE (FP) PO PRN ×2 (09:54→22:25)
--- NOTE | 2017-08-12 17:29 | PN ---
Progress Note, Physician History of Present Illness: rash is better - Current Medication List Current Medications: Active Medications Amlodipine Besylate (Norvasc -) 5 mg PO DAILY [facility] Last Admin: 08/12/17 09:39 Dose: 5 mg Aspirin (Ecotrin -) 81 mg PO DAILY [facility] Last Admin: 08/12/17 09:38 Dose: 81 mg Carvedilol (Coreg -) 12.5 mg PO DAILY [facility] Last Admin: 08/12/17 09:37 Dose: 12.5 mg Diphenhydramine HCl (Benadryl -) 25 mg PO Q6H PRN PRN Reason: FOR ITCHING Last Admin: 08/12/17 09:54 Dose: 25 mg Folic Acid (Folic Acid -) 1 mg PO DAILY [facility] Last Admin: 08/12/17 09:38 Dose: 1 mg Methylprednisolone Sodium Succinate (Solu-Medrol -) 40 mg IVPUSH Q6H-IV [facility] Last Admin: 08/12/17 14:37 Dose: 40 mg Triamcinolone Acetonide (Aristocort 0.1% Cream -) 1 applic TP BID [facility] Last Admin: 08/12/17 09:39 Dose: 1 applic - Objective Vital Signs: Vital Signs Temperature 97 F L 08/12/17 17:19 Pulse Rate 69 08/12/17 17:19 Respiratory Rate 20 08/12/17 17:19 Blood Pressure 130/72 08/12/17 17:19 O2 Sat by Pulse Oximetry (%) 98 08/12/17 05:00 Constitutional: Yes: No Distress HENT: Yes: Atraumatic Neck: Yes: Supple Cardiovascular: Yes: Regular Rate and Rhythm Respiratory: Yes: CTA Bilaterally Gastrointestinal: Yes: Normal Bowel Sounds Extremities: Yes: WNL Peripheral Pulses WNL: Yes Integumentary: Yes: Other (SKIN...RASH RESOLVING) Neurological: Yes: Alert, Oriented Labs: CBC, BMP 08/12/17 06:00 08/12/17 06:00 Problem List - Problems (1) Allergic reaction Assessment/Plan: ON IV STEROIDS PRN BENADRYL HOLD LOSARTAN PT HAD A SIMILAR REACTION TO THIS Code(s): T78.40XA - ALLERGY, UNSPECIFIED, INITIAL ENCOUNTER Qualifiers: Encounter type: initial encounter Qualified Code(s): T78.40XA - Allergy, unspecified, initial encounter
[2017-08-13] MEDS: methylPREDNISolone NA SUCC 40 MG/1 ML VIAL IVPUSH SCH ×4 (03:08→22:49)
[2017-08-13] MEDS: FOLIC ACID 1 MG TABLET (FP) PO SCH (10:30)
[2017-08-13] MEDS: ASPIRIN COATED 81 MG TABLET.EC PO SCH (10:30)
[2017-08-13] MEDS: amLODIPine BESYLATE 5 MG TABLET (FP) PO SCH (10:30)
[2017-08-13] MEDS: CARVEDILOL 12.5 MG TABLET (FP) PO SCH (10:30)
[2017-08-13] MEDS: TRIAMCINOLONE ACET 0.1% CREAM 15 GM TUBE TP SCH ×2 (10:31→22:50)
[2017-08-13] MEDS: diphenhydrAMINE HCL 25 MG CAPSULE (FP) PO PRN (10:34)
--- NOTE | 2017-08-13 11:50 | PN ---
Progress Note (short form) - Note Progress Note: Patient seen and examined No difficulty with swallowing or swelling in oropharynx Some SOB Some LUE uper quadrant anterior rib cage pains Diffuse pruritic urticarial Last Vital Signs Temp Pulse Resp BP Pulse Ox 98.1 F 74 16 145/79 98 08/13/17 09:49 08/13/17 09:49 08/13/17 09:49 08/13/17 09:49 08/12/17 21:00 HEENT: WILLI[place], EOM Intact Oropharynx: No thrush, No mucositis Cor: RSR, No murmurs, No gallops Lungs: Clear to P&A Abd: Soft, Normal bowel sounds, No organomegaly Ext:No significant edema Skin: Urticarial eruption CBC, BMP 08/12/17 06:00 08/12/17 06:00 Current Medications Generic Name Dose Route Start Last Admin Trade Name Freq PRN Reason Stop Dose Admin Amlodipine Besylate 5 mg 08/12/17 10:00 08/13/17 10:30 Norvasc - PO 5 mg DAILY JANINE Administration Aspirin 81 mg 08/12/17 10:00 08/13/17 10:30 Ecotrin - PO 81 mg DAILY JANINE Administration Carvedilol 12.5 mg 08/12/17 10:00 08/13/17 10:30 Coreg - PO 12.5 mg DAILY JANINE Administration Diphenhydramine HCl 25 mg 08/11/17 19:55 08/13/17 10:34 Benadryl - PO 25 mg Q6H PRN Administration FOR ITCHING Folic Acid 1 mg 08/12/17 10:00 08/13/17 10:30 Folic Acid - PO 1 mg DAILY JANINE Administration Methylprednisolone Sodium Succinate 40 mg 08/11/17 21:00 08/13/17 10:30 Solu-Medrol - IVPUSH 40 mg Q6H-IV JANINE Administration Triamcinolone Acetonide 1 applic 08/12/17 10:00 08/13/17 10:31 Aristocort 0.1% Cream - TP 1 applic BID JANINE Administration Impression Mesothelioma Urticarial eruption Anemia Patient will need allergy assessment when discharged. ?? delayed reaction to chemotherapy , although timing is somewhat off.
--- NOTE | 2017-08-13 17:11 | PN ---
Progress Note, Physician History of Present Illness: rash came back on arms. buttocks - Current Medication List Current Medications: Active Medications Amlodipine Besylate (Norvasc -) 5 mg PO DAILY [facility] Last Admin: 08/13/17 10:30 Dose: 5 mg Aspirin (Ecotrin -) 81 mg PO DAILY [facility] Last Admin: 08/13/17 10:30 Dose: 81 mg Carvedilol (Coreg -) 12.5 mg PO DAILY [facility] Last Admin: 08/13/17 10:30 Dose: 12.5 mg Diphenhydramine HCl (Benadryl -) 25 mg PO Q6H PRN PRN Reason: FOR ITCHING Last Admin: 08/13/17 10:34 Dose: 25 mg Folic Acid (Folic Acid -) 1 mg PO DAILY [facility] Last Admin: 08/13/17 10:30 Dose: 1 mg Methylprednisolone Sodium Succinate (Solu-Medrol -) 40 mg IVPUSH Q6H-IV [facility] Last Admin: 08/13/17 15:37 Dose: 40 mg Triamcinolone Acetonide (Aristocort 0.1% Cream -) 1 applic TP BID [facility] Last Admin: 08/13/17 10:31 Dose: 1 applic - Objective Vital Signs: Vital Signs Temperature 98.4 F 08/13/17 14:41 Pulse Rate 63 08/13/17 14:41 Respiratory Rate 18 08/13/17 14:41 Blood Pressure 139/87 08/13/17 14:41 O2 Sat by Pulse Oximetry (%) 98 08/12/17 21:00 HENT: Yes: Atraumatic Neck: Yes: Supple Cardiovascular: Yes: Regular Rate and Rhythm Respiratory: Yes: CTA Bilaterally Gastrointestinal: Yes: Normal Bowel Sounds Extremities: Yes: WNL Edema: No Integumentary: Yes: Other (rash on joanna and buttocks came back , pruritic) Neurological: Yes: Alert Labs: CBC, BMP 08/12/17 06:00 08/12/17 06:00 Problem List - Problems (1) Allergic reaction Assessment/Plan: ON IV STEROIDS PRN BENADRYL HOLD LOSARTAN PT HAD A SIMILAR REACTION TO THIS Code(s): T78.40XA - ALLERGY, UNSPECIFIED, INITIAL ENCOUNTER Qualifiers: Encounter type: initial encounter Qualified Code(s): T78.40XA - Allergy, unspecified, initial encounter
--- NOTE | 2017-08-13 17:41 | CONSULT ---
Consult Consult Specialty:: Dermatology - History Source History Provided By: Patient - Past Medical History Cardio/Vascular: Yes: CHF, Hyperlipdemia Pulmonary: Yes: Asthma - Smoking History Smoking history: Former smoker Have you smoked in the past 12 months: No If you are a former smoker, when did you quit?: LAST YEAR Home Medications - Allergies Allergies/Adverse Reactions: Allergies Allergy/AdvReac Type Severity Reaction Status Date / Time sulfur [From Sulfur-8] Allergy Mild Rash Verified 08/11/17 12:14 - Home Medications Home Medications: Ambulatory Orders Amlodipine Besylate [Norvasc -] 5 mg PO DAILY 08/11/17 Aspirin [Ecotrin] 81 mg PO DAILY 08/11/17 Carvedilol 12.5 mg PO DAILY 08/11/17 Fenofibrate [Lipofen] 150 mg PO DAILY 08/11/17 Folic Acid 1 mg PO DAILY 08/11/17 Furosemide [Lasix] 40 mg PO DAILY 08/11/17 Omeprazole Magnesium [Prilosec Otc] 20 mg PO DAILY 08/11/17 Methylprednisolone [Medrol Dose Alexandr] 4 mg PO ASDIR #21 tablet 08/13/17 Physical Exam Vital Signs: Vital Signs Temperature 98.1 F 08/13/17 17:11 Pulse Rate 67 08/13/17 17:11 Respiratory Rate 20 08/13/17 17:11 Blood Pressure 140/81 08/13/17 17:11 O2 Sat by Pulse Oximetry (%) 98 08/12/17 21:00 Labs: CBC, BMP 08/12/17 06:00 08/12/17 06:00 Assessment/Plan Called to see patient for pruritis and eruption on shoulder. patient was admitted due to an allergic reaction. patient had not be started on any new medications . he reported taking an over the counter medication omega fatty acid supplement and subsequently broke out with urticarial papules and SOB. He reported having a similar reaction a year ago after taking the same supplement but not as severe. 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
[2017-08-14] MEDS: methylPREDNISolone NA SUCC 40 MG/1 ML VIAL IVPUSH SCH ×3 (02:30→14:58)
[2017-08-14] MEDS: diphenhydrAMINE HCL 25 MG CAPSULE (FP) PO PRN ×2 (04:41→11:15)
[2017-08-14] MEDS: TRIAMCINOLONE ACET 0.1% CREAM 15 GM TUBE TP SCH (09:17)
[2017-08-14] MEDS: FOLIC ACID 1 MG TABLET (FP) PO SCH (09:18)
[2017-08-14] MEDS: amLODIPine BESYLATE 5 MG TABLET (FP) PO SCH (09:18)
[2017-08-14] MEDS: CARVEDILOL 12.5 MG TABLET (FP) PO SCH (09:18)
[2017-08-14] MEDS: ASPIRIN COATED 81 MG TABLET.EC PO SCH (09:18)
--- NOTE | 2017-08-14 16:24 | PN ---
Progress Note (short form) - Note Progress Note: Pt seen and examined Improving, but still with scattered redness in the UE. continues to have itching HEENT: WILLI[place], EOM Intact Oropharynx: No thrush, No mucositis Cor: RSR, No murmurs, No gallops Lungs: Clear to P&A Abd: Soft, Normal bowel sounds, No organomegaly Ext:No significant edema Skin: skin much better, with some isolated erythema in the UE Temp Pulse Resp BP Pulse Ox 98.2 F 73 18 138/85 98 08/14/17 15:39 08/14/17 15:39 08/14/17 15:39 08/14/17 15:39 08/14/17 13:00 CBC, BMP 08/12/17 06:00 08/12/17 06:00 Current Medications Generic Name Dose Route Start Last Admin Trade Name Freq PRN Reason Stop Dose Admin Amlodipine Besylate 5 mg 08/12/17 10:00 08/14/17 09:18 Norvasc - PO 5 mg DAILY JANINE Administration Aspirin 81 mg 08/12/17 10:00 08/14/17 09:18 Ecotrin - PO 81 mg DAILY JANINE Administration Carvedilol 12.5 mg 08/12/17 10:00 08/14/17 09:18 Coreg - PO 12.5 mg DAILY JANINE Administration Diphenhydramine HCl 25 mg 08/11/17 19:55 08/14/17 11:15 Benadryl - PO 25 mg Q6H PRN Administration FOR ITCHING Folic Acid 1 mg 08/12/17 10:00 08/14/17 09:18 Folic Acid - PO 1 mg DAILY JANINE Administration Methylprednisolone Sodium Succinate 40 mg 08/11/17 21:00 08/14/17 14:58 Solu-Medrol - IVPUSH 40 mg Q6H-IV JANINE Administration Triamcinolone Acetonide 1 applic 08/12/17 10:00 08/14/17 09:17 Aristocort 0.1% Cream - TP 1 applic BID JANINE Administration Impression Mesothelioma Urticarial eruption Anemia on steroids.improving ?etiology consider atarax. for OP allergy-immunology assessment.
--- NOTE | 2017-08-14 17:25 | PN ---
Progress Note, Physician History of Present Illness: rash is resolved...itchy still - Current Medication List Current Medications: Active Medications Amlodipine Besylate (Norvasc -) 5 mg PO DAILY [facility] Last Admin: 08/14/17 09:18 Dose: 5 mg Aspirin (Ecotrin -) 81 mg PO DAILY [facility] Last Admin: 08/14/17 09:18 Dose: 81 mg Carvedilol (Coreg -) 12.5 mg PO DAILY [facility] Last Admin: 08/14/17 09:18 Dose: 12.5 mg Diphenhydramine HCl (Benadryl -) 25 mg PO Q6H PRN PRN Reason: FOR ITCHING Last Admin: 08/14/17 11:15 Dose: 25 mg Folic Acid (Folic Acid -) 1 mg PO DAILY [facility] Last Admin: 08/14/17 09:18 Dose: 1 mg Methylprednisolone Sodium Succinate (Solu-Medrol -) 40 mg IVPUSH BID [facility] Triamcinolone Acetonide (Aristocort 0.1% Cream -) 1 applic TP BID [facility] Last Admin: 08/14/17 09:17 Dose: 1 applic - Objective Vital Signs: Vital Signs Temperature 98.2 F 08/14/17 15:39 Pulse Rate 73 08/14/17 15:39 Respiratory Rate 18 08/14/17 15:39 Blood Pressure 138/85 08/14/17 15:39 O2 Sat by Pulse Oximetry (%) 98 08/14/17 13:00 HENT: Yes: Atraumatic Cardiovascular: Yes: Regular Rate and Rhythm Respiratory: Yes: CTA Bilaterally Gastrointestinal: Yes: Normal Bowel Sounds Extremities: Yes: WNL Edema: No Peripheral Pulses WNL: Yes Integumentary: Yes: Other (skin rasjh resolved seems like dry skin) Neurological: Yes: Alert Labs: CBC, BMP 08/12/17 06:00 08/12/17 06:00 Problem List - Problems (1) Allergic reaction Assessment/Plan: switch him to po steroids Code(s): T78.40XA - ALLERGY, UNSPECIFIED, INITIAL ENCOUNTER Qualifiers: Encounter type: initial encounter Qualified Code(s): T78.40XA - Allergy, unspecified, initial encounter
--- NOTE | 2017-08-14 17:32 | DS ---
Physical Examination Vital Signs: Vital Signs Temperature 98.2 F 08/14/17 15:39 Pulse Rate 73 08/14/17 15:39 Respiratory Rate 18 08/14/17 15:39 Blood Pressure 138/85 08/14/17 15:39 O2 Sat by Pulse Oximetry (%) 98 08/14/17 13:00 Labs: CBC, BMP 08/12/17 06:00 08/12/17 06:00 Discharge Summary Reason For Visit: ALLERGIC REACTION Current Active Problems Allergic reaction (Acute) Condition: Stable - Instructions Diet, Activity, Other Instructions: see your doctor in 2-3 days Referrals: Neil Newman MD [Staff Physician] - - Home Medications Comprehensive Discharge Medication List: Ambulatory Orders Amlodipine Besylate [Norvasc -] 5 mg PO DAILY 08/11/17 Aspirin [Ecotrin] 81 mg PO DAILY 08/11/17 Carvedilol 12.5 mg PO DAILY 08/11/17 Fenofibrate [Lipofen] 150 mg PO DAILY 08/11/17 Folic Acid 1 mg PO DAILY 08/11/17 Furosemide [Lasix] 40 mg PO DAILY 08/11/17 Omeprazole Magnesium [Prilosec Otc] 20 mg PO DAILY 08/11/17 Methylprednisolone [Medrol Dose Alexandr] 4 mg PO ASDIR #21 tablet 08/13/17 Triamcinolone 0.1% Cream [Aristocort 0.1% Cream -] 1 applic TP BID #1 applic pt can be dc home ride to home is getting arranged by the hospital
[2017-08-14 17:35] VITALS: BP 138/93; PULSE 84; TEMP 97.3
[2017-08-14] MEDS ORDERED: predniSONE 10 MG TABLET (UD) PO SCH (17:45)
[2017-08-14] MEDS ORDERED: methylPREDNISolone NA SUCC 40 MG/1 ML VIAL IVPUSH SCH (22:00)
== END 2017-08-14 20:07 | disposition home or self-care (01) ==
LOC: JER 12:05 → JERBED 15:06 → J8W 23:51
PROVIDERS: ADMIT Internal Medicine; ATTEND Internal Medicine
PROC: 3E0333Z Introduction of Anti-inflammatory into Peripheral Vein, Percutaneous Approach (ICD-10-PCS; principal; 2017-08-11)
PROC: 3E033GC Introduction of Other Therapeutic Substance into Peripheral Vein, Percutaneous Approach (ICD-10-PCS; 2017-08-11)
PROC: 3E023GC Introduction of Other Therapeutic Substance into Muscle, Percutaneous Approach (ICD-10-PCS; 2017-08-11)
PROC: 3E0337Z Introduction of Electrolytic and Water Balance Substance into Peripheral Vein, Percutaneous Approach (ICD-10-PCS; 2017-08-11)
DX: T78.40XA Allergy, unspecified, initial encounter (principal); X58.XXXA Exposure to other specified factors, initial encounter; C45.9 Mesothelioma, unspecified; L50.0 Allergic urticaria; D64.9 Anemia, unspecified; I50.9 Heart failure, unspecified; E78.5 Hyperlipidemia, unspecified; J45.909 Unspecified asthma, uncomplicated; Z87.442 Personal history of urinary calculi; Z87.891 Personal history of nicotine dependence; Z79.82 Long term (current) use of aspirin
CPT/HCPCS: 36415; 80053; 85025; 93005; 93010; 96361; 96365; 96372; 96375; 96376; 99283-25; G0378

== ENCOUNTER 2017-09-04 07:08 | Day surgery (SDC) | payer MEDICARE, OTHER ==
[2017-09-04 09:56] LABS: BASO % 0.3 % (0-2.0); EOS % 4.2 % (0-4.5); HEMATOCRIT 33.7 % (35.4-49); HEMOGLOBIN 11.6 GM/dL (11.7-16.9); MCH 31.1 pg (25.7-33.7); MCHC 34.5 g/dl (32.0-35.9); MEAN CELL VOLUME 90.2 fl (80-96); MEAN PLT VOLUME 6.8 fl (7.5-11.1); MONO % 12.3 % (3.8-10.2); NEUT % 59.2 % (42.8-82.8); PLATELET COUNT 399 K/MM3 (134-434); RBC 3.73 M/mm3 (4.00-5.60); RDW 16.1 % (11.9-15.9); WHITE BLOOD COUNT 5.5 K/mm3 (4.0-10.0)
[2017-09-04] MEDS ORDERED: DEXAMETHASONE INJECTION 20 MG in SODIUM CHLORIDE 100 ML IVPB ONE (10:00)
[2017-09-04] MEDS ORDERED: CYANOCOBALAMIN (VITAMIN B-12) 1000 MCG/1 ML VIAL IM ONE (10:00)
[2017-09-04] MEDS ORDERED: PALONOSETRON HCL 0.25 MG/5 ML VIAL IVPUSH ONE (10:00)
[2017-09-04 10:20] LABS: ALBUMIN 3.6 g/dl (3.4-5.0); BILIRUBIN,DIRECT < 0.2 mg/dL (0.0-0.2); MAGNESIUM 1.8 mg/dL (1.8-2.4); SGOT/AST 13 U/L (15-37); SGPT/ALT 16 U/L (12-78)
[2017-09-04 10:22] LABS: ALK PHOS 89 U/L (45-117); BILIRUBIN,TOTAL 0.5 mg/dL (0.2-1.0); TOT PROT 7.9 g/dl (6.4-8.2)
[2017-09-04] MEDS ORDERED: SODIUM CHLORIDE IVPB ONE (10:30)
[2017-09-04] MEDS ORDERED: PEMETREXED DISODIUM IVPB ONE (10:30)
[2017-09-04 10:56] LABS: ALBUMIN 3.6 g/dl (3.4-5.0); ANION GAP 7 (8-16); BLOOD UREA NITROGEN 15 mg/dL (7-18); CALCIUM 8.9 mg/dL (8.5-10.1); CHLORIDE 103 mmol/L (98-107); CO2 29 mmol/L (21-32); CREATININE 1.4 mg/dL (0.7-1.3); GLUCOSE,RANDOM 94 mg/dL (74-106); SGOT/AST 12 U/L (15-37); SGPT/ALT 17 U/L (12-78); SODIUM 139 mmol/L (136-145)
[2017-09-04 10:58] LABS: ALK PHOS 89 U/L (45-117); BILIRUBIN,TOTAL 0.4 mg/dL (0.2-1.0); TOT PROT 8.1 g/dl (6.4-8.2)
[2017-09-04 14:45] VITALS: BP 126/82; PULSE 86; TEMP 98.6
== END 2017-09-04 12:15 | disposition home or self-care (01) ==
LOC: JONCCHEMO 07:08 → J7W 10:12 → JONCCHEMO 12:15
PROVIDERS: ATTEND Internal Medicine Hematology & Oncology
DX: Z51.11 Encounter for antineoplastic chemotherapy (principal); C45.0 Mesothelioma of pleura
CPT/HCPCS: 36415; 80053; 80076; 83735; 85025; 85651; 96367; 96372; 96375; 96413; J1100; J2469; J9305

== ENCOUNTER 2017-09-05 07:23 | Day surgery (SDC) | payer MEDICARE, OTHER ==
[2017-09-05] MEDS ORDERED: PEGFILGRASTIM 6 MG/0.6 ML DISP.SYRIN SQ ONE (10:00)
[2017-09-05 13:34] VITALS: BP 120/73; PULSE 81; TEMP 97.8
== END 2017-09-05 11:30 | disposition home or self-care (01) ==
LOC: JONCCHEMO 07:23 → J7W 11:23 → JONCCHEMO 11:30
PROVIDERS: ATTEND Internal Medicine Hematology & Oncology
PROC: 3E013GC Introduction of Other Therapeutic Substance into Subcutaneous Tissue, Percutaneous Approach (ICD-10-PCS; principal; 2017-09-05)
DX: C45.0 Mesothelioma of pleura (principal); Z76.89 Persons encountering health services in other specified circumstances
CPT/HCPCS: 96372; J2505

== ENCOUNTER 2017-09-25 07:26 | Day surgery (SDC) | payer MEDICARE, OTHER ==
[2017-09-25] MEDS ORDERED: PALONOSETRON HCL 0.25 MG/5 ML VIAL IVPUSH ONE (08:00)
[2017-09-25] MEDS ORDERED: DEXAMETHASONE SOD PHOSPHATE 10 MG/1 ML VIAL IVPUSH ONE (08:00)
[2017-09-25] MEDS ORDERED: CYANOCOBALAMIN (VITAMIN B-12) 1000 MCG/1 ML VIAL IM ONE (08:00)
[2017-09-25] MEDS ORDERED: SODIUM CHLORIDE IVPB ONE (08:30)
[2017-09-25] MEDS ORDERED: CARBOPLATIN IVPB ONE (08:30)
[2017-09-25 08:57] LABS: BASO % 0.8 % (0-2.0); EOS % 1.5 % (0-4.5); HEMATOCRIT 33.3 % (35.4-49); HEMOGLOBIN 11.5 GM/dL (11.7-16.9); LYMPH % 22.5 % (8-40); MCH 30.9 pg (25.7-33.7); MCHC 34.5 g/dl (32.0-35.9); MEAN CELL VOLUME 89.7 fl (80-96); MEAN PLT VOLUME 6.9 fl (7.5-11.1); NEUT % 64.2 % (42.8-82.8); PLATELET COUNT 452 K/MM3 (134-434); RBC 3.72 M/mm3 (4.00-5.60); RDW 16.3 % (11.9-15.9); WHITE BLOOD COUNT 7.2 K/mm3 (4.0-10.0)
[2017-09-25 09:17] LABS: ALBUMIN 3.6 g/dl (3.4-5.0); ANION GAP 2 (8-16); BILIRUBIN,TOTAL 0.3 mg/dL (0.2-1.0); BLOOD UREA NITROGEN 13 mg/dL (7-18); CHLORIDE 104 mmol/L (98-107); CO2 32 mmol/L (21-32); CREATININE 1.3 mg/dL (0.7-1.3); GLUCOSE,RANDOM 96 mg/dL (74-106); POTASSIUM 4.1 mmol/L (3.5-5.1); SGOT/AST 14 U/L (15-37); SGPT/ALT 12 U/L (12-78); SODIUM 138 mmol/L (136-145); TOT PROT 7.9 g/dl (6.4-8.2)
[2017-09-25 09:18] LABS: ALK PHOS 63 U/L (45-117)
[2017-09-25 09:58] VITALS: TEMP 98.1
[2017-09-25] MEDS ORDERED: LIDOCAINE 2.5%/PRILOCAINE 2.5% (5 Gram/TUBE) TP ONE (10:00)
[2017-09-25] MEDS ORDERED: amLODIPine BESYLATE 5 MG TABLET (FP) PO ONE (10:00)
[2017-09-25 10:19] LABS: ALBUMIN 3.7 g/dl (3.4-5.0); BILIRUBIN,DIRECT 0.2 mg/dL (0.0-0.2); BILIRUBIN,TOTAL 0.5 mg/dL (0.2-1.0); TOT PROT 8.2 g/dl (6.4-8.2)
[2017-09-25] MEDS ORDERED: SODIUM CHLORIDE 250 ML IV ONE (11:15)
[2017-09-25] MEDS ORDERED: PORTA CATH FLUSH 10 ML IVPUSH ONE (15:45)
[2017-09-25 15:47] VITALS: BP 118/76; PULSE 83
== END 2017-09-25 13:45 | disposition home or self-care (01) ==
LOC: JONCCHEMO 07:26 → J7W 09:21 → JONCCHEMO 13:45
PROVIDERS: ATTEND Internal Medicine Hematology & Oncology
DX: Z51.11 Encounter for antineoplastic chemotherapy (principal); C45.0 Mesothelioma of pleura
CPT/HCPCS: 36415; 80053; 80076; 83735; 85025; 96361; 96372; 96375; 96413; 96415; J1100; J2469

== ENCOUNTER 2017-09-26 07:34 | Day surgery (SDC) | payer MEDICARE, OTHER ==
[2017-09-26] MEDS ORDERED: PEGFILGRASTIM 6 MG/0.6 ML DISP.SYRIN SQ ONE (08:00)
[2017-09-26 14:12] VITALS: BP 136/80; PULSE 76; TEMP 97.9
== END 2017-09-26 12:50 | disposition home or self-care (01) ==
LOC: JONCCHEMO 07:34 → J7W 12:31 → JONCCHEMO 12:50
PROVIDERS: ATTEND Internal Medicine Hematology & Oncology
PROC: 3E013GC Introduction of Other Therapeutic Substance into Subcutaneous Tissue, Percutaneous Approach (ICD-10-PCS; principal; 2017-09-26)
DX: C45.0 Mesothelioma of pleura (principal); Z76.89 Persons encountering health services in other specified circumstances
CPT/HCPCS: 96372; J2505

== ENCOUNTER 2017-10-16 07:34 | Day surgery (SDC) | payer MEDICARE, OTHER ==
[2017-10-16 09:25] LABS: URINE APPEARANCE CLEAR; URINE BILIRUBIN NEGATIVE (<2.0 mg/dL); URINE BLOOD 2+ (NEGATIVE); URINE COLOR YELLOW; URINE GLUCOSE (UA) NEGATIVE (NEGATIVE); URINE KETONE NEGATIVE (NEGATIVE); URINE LEUK ESTERASE NEGATIVE (NEGATIVE); URINE NITRITE NEGATIVE (NEGATIVE); URINE PROTEIN 1+ (NEGATIVE); URINE UROBILINOGEN NEGATIVE mg/dL (0.2-1.0)
[2017-10-16 09:29] LABS: BASO % 1.2 % (0-2.0); EOS % 1.2 % (0-4.5); HEMATOCRIT 33.4 % (35.4-49); HEMOGLOBIN 11.2 GM/dL (11.7-16.9); LYMPH % 23.5 % (8-40); MCH 30.8 pg (25.7-33.7); MCHC 33.6 g/dl (32.0-35.9); MEAN CELL VOLUME 91.8 fl (80-96); MEAN PLT VOLUME 7.1 fl (7.5-11.1); MONO % 8.9 % (3.8-10.2); NEUT % 65.2 % (42.8-82.8); PLATELET COUNT 209 K/MM3 (134-434); RBC 3.64 M/mm3 (4.00-5.60); RDW 15.4 % (11.9-15.9); WHITE BLOOD COUNT 6.9 K/mm3 (4.0-10.0)
[2017-10-16 09:46] LABS: URINE MUCUS RARE
[2017-10-16 09:54] LABS: ALBUMIN 3.6 g/dl (3.4-5.0); ALK PHOS 66 U/L (45-117); ANION GAP 5 (8-16); BILIRUBIN,DIRECT 0.2 mg/dL (0.0-0.2); BILIRUBIN,TOTAL 0.5 mg/dL (0.2-1.0); BLOOD UREA NITROGEN 18 mg/dL (7-18); CALCIUM 9.1 mg/dL (8.5-10.1); CHLORIDE 102 mmol/L (98-107); CO2 31 mmol/L (21-32); CREATININE 1.4 mg/dL (0.7-1.3); GLUCOSE,RANDOM 92 mg/dL (74-106); MAGNESIUM 2.1 mg/dL (1.8-2.4); POTASSIUM 3.8 mmol/L (3.5-5.1); SGOT/AST 12 U/L (15-37); SGPT/ALT 13 U/L (12-78); SODIUM 138 mmol/L (136-145); TOT PROT 8.3 g/dl (6.4-8.2)
[2017-10-16] MEDS: SODIUM CHLORIDE 250 ML IV ONE ×2 (09:56→10:05)
[2017-10-16] MEDS ORDERED: CYANOCOBALAMIN (VITAMIN B-12) 1000 MCG/1 ML VIAL IM ONE (10:00)
[2017-10-16] MEDS ORDERED: PALONOSETRON HCL 0.25 MG/5 ML VIAL IVPUSH ONE (10:00)
[2017-10-16] MEDS ORDERED: DEXAMETHASONE SOD PHOSPHATE 10 MG/1 ML VIAL IVPUSH ONE (10:00)
[2017-10-16] MEDS ORDERED: D5-1/2NS+20 MEQ KCL - 20 MEQ/1,000 ML INFUS.BAG IV SCH (10:00)
[2017-10-16] MEDS ORDERED: PEMETREXED DISODIUM IVPB ONE (10:30)
[2017-10-16] MEDS ORDERED: SODIUM CHLORIDE IVPB ONE ×2 (10:30→10:40)
[2017-10-16] MEDS ORDERED: CARBOPLATIN IVPB ONE (10:40)
[2017-10-16 10:43] VITALS: TEMP 97.8
[2017-10-16] MEDS ORDERED: PORTA CATH FLUSH 10 ML IVPUSH ONE (10:43)
[2017-10-16 15:06] VITALS: BP 124/77; PULSE 75
== END 2017-10-16 14:00 | disposition home or self-care (01) ==
LOC: JONCCHEMO 07:34 → J7W 09:47 → JONCCHEMO 14:00
PROVIDERS: ATTEND Internal Medicine Hematology & Oncology
DX: Z51.11 Encounter for antineoplastic chemotherapy (principal); C45.0 Mesothelioma of pleura
CPT/HCPCS: 36415; 80053; 80076; 81003; 81015; 83735; 85025; 87086; 96361; 96372; 96375; 96411; 96413; 96417; J1100; J2469; J9305

== ENCOUNTER 2017-11-06 07:33 | Day surgery (SDC) | payer MEDICARE, OTHER ==
[2017-11-06] MEDS ORDERED: SODIUM CHLORIDE 250 ML IV ONE (09:00)
[2017-11-06 09:06] LABS: BASO % 0.8 % (0-2.0); EOS % 0.5 % (0-4.5); HEMATOCRIT 31.6 % (35.4-49); HEMOGLOBIN 10.9 GM/dL (11.7-16.9); LYMPH % 16.4 % (8-40); MCH 31.6 pg (25.7-33.7); MCHC 34.5 g/dl (32.0-35.9); MEAN CELL VOLUME 91.8 fl (80-96); MEAN PLT VOLUME 7.1 fl (7.5-11.1); MONO % 12.7 % (3.8-10.2); NEUT % 69.6 % (42.8-82.8); PLATELET COUNT 411 K/MM3 (134-434); RBC 3.45 M/mm3 (4.00-5.60); RDW 16.4 % (11.9-15.9); WHITE BLOOD COUNT 8.9 K/mm3 (4.0-10.0)
[2017-11-06 09:48] LABS: ANION GAP 10 (8-16); BLOOD UREA NITROGEN 16 mg/dL (7-18); CALCIUM 9.6 mg/dL (8.5-10.1); CHLORIDE 102 mmol/L (98-107); CO2 28 mmol/L (21-32); GLUCOSE,RANDOM 104 mg/dL (74-106); POTASSIUM 3.8 mmol/L (3.5-5.1); SODIUM 140 mmol/L (136-145)
[2017-11-06 09:54] LABS: ALBUMIN 3.7 g/dl (3.4-5.0); ALK PHOS 79 U/L (45-117); BILIRUBIN,TOTAL 0.3 mg/dL (0.2-1.0); CREATININE 1.3 mg/dL (0.7-1.3); SGOT/AST 15 U/L (15-37); SGPT/ALT 12 U/L (12-78); TOT PROT 8.1 g/dl (6.4-8.2)
[2017-11-06] MEDS ORDERED: PALONOSETRON HCL 0.25 MG/5 ML VIAL IVPUSH ONE (10:00)
[2017-11-06] MEDS ORDERED: DEXAMETHASONE INJECTION 10 MG in SODIUM CHLORIDE 50 ML IVPB ONE (10:00)
[2017-11-06] MEDS ORDERED: CYANOCOBALAMIN (VITAMIN B-12) 1000 MCG/1 ML VIAL IM ONE (10:00)
[2017-11-06] MEDS ORDERED: PEMETREXED DISODIUM IVPB ONE (10:30)
[2017-11-06] MEDS ORDERED: SODIUM CHLORIDE IVPB ONE ×2 (10:30→10:40)
[2017-11-06] MEDS ORDERED: CARBOPLATIN IVPB ONE (10:40)
[2017-11-06 11:16] LABS: BILIRUBIN,DIRECT < 0.2 mg/dL (0.0-0.2); MAGNESIUM 1.9 mg/dL (1.8-2.4)
[2017-11-06 11:22] VITALS: TEMP 98.5
[2017-11-06] MEDS ORDERED: PORTA CATH FLUSH 10 ML IVPUSH ONE (11:22)
[2017-11-06 13:52] VITALS: BP 129/85; PULSE 69
== END 2017-11-06 13:00 | disposition home or self-care (01) ==
LOC: JONCCHEMO 07:33 → J7W 09:11 → JONCCHEMO 13:00
PROVIDERS: ATTEND Internal Medicine Hematology & Oncology
PROC: 3E04305 Introduction of Other Antineoplastic into Central Vein, Percutaneous Approach (ICD-10-PCS; principal; 2017-11-06)
PROC: 3E043GC Introduction of Other Therapeutic Substance into Central Vein, Percutaneous Approach (ICD-10-PCS; 2017-11-06)
PROC: 3E0437Z Introduction of Electrolytic and Water Balance Substance into Central Vein, Percutaneous Approach (ICD-10-PCS; 2017-11-06)
DX: Z51.11 Encounter for antineoplastic chemotherapy (principal); C45.0 Mesothelioma of pleura; I10 Essential (primary) hypertension; M19.90 Unspecified osteoarthritis, unspecified site; E78.00 Pure hypercholesterolemia, unspecified
CPT/HCPCS: 36415; 80053; 80076; 83735; 85025; 96361; 96372; 96375; 96413; 96417; J1100; J2469; J9305

== ENCOUNTER 2017-11-07 07:30 | Day surgery (SDC) | payer MEDICARE, OTHER ==
[2017-11-07] MEDS ORDERED: PEGFILGRASTIM 6 MG/0.6 ML DISP.SYRIN SQ ONE (10:00)
[2017-11-07 14:51] VITALS: BP 125/86; PULSE 79; TEMP 98
== END 2017-11-07 11:05 | disposition home or self-care (01) ==
LOC: JONCCHEMO 07:30 → J7W 10:46 → JONCCHEMO 11:05
PROVIDERS: ATTEND Internal Medicine Hematology & Oncology
PROC: 3E013GC Introduction of Other Therapeutic Substance into Subcutaneous Tissue, Percutaneous Approach (ICD-10-PCS; principal; 2017-11-07)
DX: C45.0 Mesothelioma of pleura (principal); I10 Essential (primary) hypertension; E78.00 Pure hypercholesterolemia, unspecified; M19.90 Unspecified osteoarthritis, unspecified site
CPT/HCPCS: 96372; J2505

== ENCOUNTER 2018-01-19 07:45 | Day surgery (SDC) | payer MEDICARE, OTHER ==
[2018-01-19] MEDS ORDERED: SODIUM CHLORIDE 250 ML IV ONE ×4 (08:00→10:00)
[2018-01-19] MEDS ORDERED: DEXAMETHASONE INJECTION 10 MG, ONDANSETRON INJECTION 8 MG in SODIUM CHLORIDE 100 ML IVPB ONE (08:30)
[2018-01-19] MEDS ORDERED: NIVOLUMAB 200 MG, NIVOLUMAB 40 MG in SODIUM CHLORIDE 100 ML IVPB ONE (09:00)
[2018-01-19 09:17] LABS: BASO % 0.9 % (0-2.0); EOS % 1.5 % (0-4.5); HEMATOCRIT 30.6 % (35.4-49); MCH 27.8 pg (25.7-33.7); MCHC 32.6 g/dl (32.0-35.9); MEAN CELL VOLUME 85.4 fl (80-96); MEAN PLT VOLUME 7.6 fl (7.5-11.1); MONO % 11.1 % (3.8-10.2); NEUT % 66.5 % (42.8-82.8); PLATELET COUNT 425 K/MM3 (134-434); RBC 3.59 M/mm3 (4.00-5.60); RDW 15.8 % (11.9-15.9); WHITE BLOOD COUNT 7.2 K/mm3 (4.0-10.0)
[2018-01-19 09:43] LABS: ALBUMIN 3.1 g/dl (3.4-5.0); ANION GAP 6 (8-16); BILIRUBIN,DIRECT 0.2 mg/dL (0.0-0.2); BLOOD UREA NITROGEN 23 mg/dL (7-18); CALCIUM 9.5 mg/dL (8.5-10.1); CHLORIDE 102 mmol/L (98-107); CO2 31 mmol/L (21-32); CREATININE 1.3 mg/dL (0.7-1.3); GLUCOSE,RANDOM 93 mg/dL (74-106); POTASSIUM 4.3 mmol/L (3.5-5.1); SGOT/AST 16 U/L (15-37); SGPT/ALT 17 U/L (12-78); SODIUM 139 mmol/L (136-145)
[2018-01-19 09:45] LABS: ALK PHOS 51 U/L (45-117); BILIRUBIN,TOTAL 0.4 mg/dL (0.2-1.0)
[2018-01-19 15:17] VITALS: TEMP 98.2
[2018-01-19] MEDS ORDERED: PORTA CATH FLUSH 10 ML IVPUSH ONE (15:17)
[2018-01-19 15:21] VITALS: BP 118/71; PULSE 75
== END 2018-01-19 12:10 | disposition home or self-care (01) ==
LOC: JONCCHEMO 07:45 → J7W 09:42 → JONCCHEMO 12:10
PROVIDERS: ATTEND Internal Medicine Hematology & Oncology
PROC: 3E04305 Introduction of Other Antineoplastic into Central Vein, Percutaneous Approach (ICD-10-PCS; principal; 2018-01-19)
PROC: 3E043GC Introduction of Other Therapeutic Substance into Central Vein, Percutaneous Approach (ICD-10-PCS; 2018-01-19)
PROC: 3E0437Z Introduction of Electrolytic and Water Balance Substance into Central Vein, Percutaneous Approach (ICD-10-PCS; 2018-01-19)
DX: Z51.11 Encounter for antineoplastic chemotherapy (principal); C45.0 Mesothelioma of pleura
CPT/HCPCS: 36415; 80053; 80076; 83735; 85025; 96367; 96375; 96413; J1100; J2405; J9299

== ENCOUNTER 2018-02-02 07:53 | Day surgery (SDC) | payer MEDICARE, OTHER ==
[2018-02-02 09:27] LABS: BASO % 0.8 % (0-2.0); EOS % 1.9 % (0-4.5); HEMATOCRIT 31.6 % (35.4-49); HEMOGLOBIN 10.4 GM/dL (11.7-16.9); LYMPH % 16.8 % (8-40); MCH 27.6 pg (25.7-33.7); MCHC 32.8 g/dl (32.0-35.9); MEAN CELL VOLUME 84.2 fl (80-96); MEAN PLT VOLUME 7.2 fl (7.5-11.1); MONO % 10.7 % (3.8-10.2); NEUT % 69.8 % (42.8-82.8); PLATELET COUNT 395 K/MM3 (134-434); RBC 3.75 M/mm3 (4.00-5.60); RDW 16.4 % (11.9-15.9); WHITE BLOOD COUNT 7.5 K/mm3 (4.0-10.0)
[2018-02-02] MEDS ORDERED: SODIUM CHLORIDE 250 ML IV ONE ×2 (09:30→11:30)
[2018-02-02 09:43] LABS: ALBUMIN 3.2 g/dl (3.4-5.0); ANION GAP 6 (8-16); BILIRUBIN,DIRECT 0.2 mg/dL (0.0-0.2); BLOOD UREA NITROGEN 16 mg/dL (7-18); CALCIUM 9.2 mg/dL (8.5-10.1); CHLORIDE 105 mmol/L (98-107); CO2 31 mmol/L (21-32); GLUCOSE,RANDOM 95 mg/dL (74-106); MAGNESIUM 2.1 mg/dL (1.8-2.4); POTASSIUM 4.2 mmol/L (3.5-5.1); SODIUM 142 mmol/L (136-145)
[2018-02-02 09:45] LABS: ALK PHOS 56 U/L (45-117); BILIRUBIN,TOTAL 0.4 mg/dL (0.2-1.0); CREATININE 1.2 mg/dL (0.7-1.3); SGOT/AST 15 U/L (15-37); SGPT/ALT 16 U/L (12-78); TOT PROT 7.9 g/dl (6.4-8.2)
[2018-02-02] MEDS ORDERED: DEXAMETHASONE INJECTION 10 MG, ONDANSETRON INJECTION 8 MG in SODIUM CHLORIDE 100 ML IVPB ONE (10:00)
[2018-02-02] MEDS ORDERED: NIVOLUMAB 200 MG, NIVOLUMAB 40 MG in SODIUM CHLORIDE 100 ML IVPB ONE (10:30)
[2018-02-02 10:42] VITALS: TEMP 98.5
[2018-02-02 13:04] LABS: ACANTHOCYTES 0; ANISOCYTOSIS 0; HELMET CELLS 0; HOWELL-JOLLY BODIES 0; MACROCYTOSIS 0; OVALOCYTE 0; PLATELET ESTIMATE NORMAL; ROULEAU 0; SICKELED CELLS 0; TARGET CELLS 0; TEAR DROP CELLS 0; TOXIC GRANULATION 0
[2018-02-02] MEDS ORDERED: PORTA CATH FLUSH 10 ML IVPUSH ONE (16:32)
[2018-02-02 16:33] VITALS: BP 125/77; PULSE 68
== END 2018-02-02 13:30 | disposition home or self-care (01) ==
LOC: JONCCHEMO 07:53 → J7W 10:23 → JONCCHEMO 13:30
PROVIDERS: ATTEND Internal Medicine Hematology & Oncology
DX: Z51.11 Encounter for antineoplastic chemotherapy (principal); C45.0 Mesothelioma of pleura
CPT/HCPCS: 36415; 80053; 80076; 83735; 85025; 96367; 96375; 96413; J1100; J9299

== ENCOUNTER 2018-02-16 07:29 | Day surgery (SDC) | payer MEDICARE, OTHER ==
[2018-02-16 08:21] LABS: BASO % 0.6 % (0-2.0); EOS % 1.6 % (0-4.5); HEMATOCRIT 30.8 % (35.4-49); HEMOGLOBIN 10.4 GM/dL (11.7-16.9); LYMPH % 29.8 % (8-40); MCH 27.3 pg (25.7-33.7); MCHC 33.6 g/dl (32.0-35.9); MEAN CELL VOLUME 81.2 fl (80-96); MEAN PLT VOLUME 7.2 fl (7.5-11.1); PLATELET COUNT 373 K/MM3 (134-434); RBC 3.79 M/mm3 (4.00-5.60); RDW 15.7 % (11.9-15.9); WHITE BLOOD COUNT 6.3 K/mm3 (4.0-10.0)
[2018-02-16 08:41] LABS: ANION GAP 8 (8-16); BILIRUBIN,DIRECT < 0.2 mg/dL (0.0-0.2); BILIRUBIN,TOTAL 0.2 mg/dL (0.2-1.0); BLOOD UREA NITROGEN 20 mg/dL (7-18); CHLORIDE 100 mmol/L (98-107); CO2 32 mmol/L (21-32); CREATININE 1.3 mg/dL (0.7-1.3); GLUCOSE,RANDOM 96 mg/dL (74-106); POTASSIUM 3.9 mmol/L (3.5-5.1); SGOT/AST 16 U/L (15-37); SGPT/ALT 21 U/L (12-78); SODIUM 140 mmol/L (136-145); TOT PROT 7.8 g/dl (6.4-8.2)
[2018-02-16 08:42] LABS: ALK PHOS 50 U/L (45-117)
[2018-02-16] MEDS ORDERED: SODIUM CHLORIDE 250 ML IV ONE ×2 (09:30→11:30)
[2018-02-16] MEDS ORDERED: DEXAMETHASONE INJECTION 10 MG, ONDANSETRON INJECTION 8 MG in SODIUM CHLORIDE 100 ML IVPB ONE (10:00)
[2018-02-16] MEDS ORDERED: NIVOLUMAB 200 MG, NIVOLUMAB 40 MG in SODIUM CHLORIDE 100 ML IVPB ONE (10:30)
[2018-02-16 16:11] VITALS: TEMP 97.8
[2018-02-16 16:12] VITALS: BP 118/79; PULSE 77
[2018-02-16] MEDS ORDERED: PORTA CATH FLUSH 10 ML IVPUSH ONE (17:13)
== END 2018-02-16 13:00 | disposition home or self-care (01) ==
LOC: JONCCHEMO 07:29 → J7W 09:46 → JONCCHEMO 13:00
PROVIDERS: ATTEND Internal Medicine Hematology & Oncology
DX: Z51.11 Encounter for antineoplastic chemotherapy (principal); C45.0 Mesothelioma of pleura
CPT/HCPCS: 36415; 80053; 80076; 83735; 84439; 84443; 85025; 87040; 96361; 96367; 96375; 96413; J1100; J9299

== ENCOUNTER 2018-03-03 07:35 | Day surgery (SDC) | payer MEDICARE, OTHER ==
[2018-03-03] MEDS ORDERED: SODIUM CHLORIDE 250 ML IV ONE ×2 (08:00→10:00)
[2018-03-03] MEDS ORDERED: DEXAMETHASONE INJECTION 10 MG, ONDANSETRON INJECTION 8 MG in SODIUM CHLORIDE 100 ML IVPB ONE (08:30)
[2018-03-03] MEDS ORDERED: NIVOLUMAB 200 MG, NIVOLUMAB 40 MG in SODIUM CHLORIDE 100 ML IVPB ONE (09:00)
[2018-03-03 09:19] LABS: BASO % 1.2 % (0-2.0); EOS % 1.4 % (0-4.5); HEMATOCRIT 31.8 % (35.4-49); HEMOGLOBIN 10.4 GM/dL (11.7-16.9); LYMPH % 17.2 % (8-40); MCHC 32.6 g/dl (32.0-35.9); MEAN CELL VOLUME 82.7 fl (80-96); MEAN PLT VOLUME 7.1 fl (7.5-11.1); MONO % 11.8 % (3.8-10.2); NEUT % 68.4 % (42.8-82.8); PLATELET COUNT 367 K/MM3 (134-434); RBC 3.84 M/mm3 (4.00-5.60); RDW 17.6 % (11.9-15.9); WHITE BLOOD COUNT 7.4 K/mm3 (4.0-10.0)
[2018-03-03 09:49] LABS: ALBUMIN 3.1 g/dl (3.4-5.0); ALK PHOS 65 U/L (45-117); BILIRUBIN,DIRECT < 0.2 mg/dL (0.0-0.2); BILIRUBIN,TOTAL 0.3 mg/dL (0.2-1.0); MAGNESIUM 1.9 mg/dL (1.8-2.4); SGOT/AST 14 U/L (15-37); SGPT/ALT 16 U/L (12-78); TOT PROT 7.6 g/dl (6.4-8.2)
[2018-03-03 10:02] LABS: ALBUMIN 3.1 g/dl (3.4-5.0); ANION GAP 10 MMOL/L (8-16); BLOOD UREA NITROGEN 14 mg/dL (7-18); CALCIUM 9.1 mg/dL (8.5-10.1); CHLORIDE 104 mmol/L (98-107); CO2 27 mmol/L (21-32); CREATININE 1.1 mg/dL (0.7-1.3); GLUCOSE,RANDOM 99 mg/dL (74-106); POTASSIUM 4.2 mmol/L (3.5-5.1); SGOT/AST 15 U/L (15-37); SGPT/ALT 17 U/L (12-78); SODIUM 141 mmol/L (136-145)
[2018-03-03 10:04] LABS: ALK PHOS 64 U/L (45-117); BILIRUBIN,TOTAL 0.4 mg/dL (0.2-1.0); TOT PROT 7.6 g/dl (6.4-8.2)
[2018-03-03] MEDS ORDERED: PORTA CATH FLUSH 10 ML IVPUSH ONE (15:14)
[2018-03-03 15:16] VITALS: TEMP 97.7
[2018-03-03 15:17] VITALS: BP 136/88; PULSE 74
== END 2018-03-03 13:40 | disposition home or self-care (01) ==
LOC: JONCCHEMO 07:35 → J7W 10:17 → JONCCHEMO 13:40
PROVIDERS: ATTEND Internal Medicine Hematology & Oncology
PROC: 3E04305 Introduction of Other Antineoplastic into Central Vein, Percutaneous Approach (ICD-10-PCS; principal; 2018-03-03)
PROC: 3E043GC Introduction of Other Therapeutic Substance into Central Vein, Percutaneous Approach (ICD-10-PCS; 2018-03-03)
PROC: 3E0437Z Introduction of Electrolytic and Water Balance Substance into Central Vein, Percutaneous Approach (ICD-10-PCS; 2018-03-03)
DX: Z51.11 Encounter for antineoplastic chemotherapy (principal); C45.0 Mesothelioma of pleura; I10 Essential (primary) hypertension; E78.00 Pure hypercholesterolemia, unspecified; J45.909 Unspecified asthma, uncomplicated
CPT/HCPCS: 36415; 80053; 80076; 83735; 85025; 96375; 96413; J1100; J2405; J9299

== ENCOUNTER 2018-03-16 07:36 | Day surgery (SDC) | payer MEDICARE, OTHER ==
[2018-03-16] MEDS ORDERED: DEXAMETHASONE INJECTION 10 MG, ONDANSETRON INJECTION 8 MG in SODIUM CHLORIDE 100 ML IVPB ONE (08:00)
[2018-03-16] MEDS ORDERED: SODIUM CHLORIDE 250 ML IV ONE ×2 (08:00→09:30)
[2018-03-16] MEDS ORDERED: NIVOLUMAB 200 MG, NIVOLUMAB 40 MG in SODIUM CHLORIDE 100 ML IVPB ONE (08:30)
[2018-03-16 09:26] LABS: HEMATOCRIT 34.1 % (35.4-49); LYMPH % 13.8 % (8-40); MCH 26.4 pg (25.7-33.7); MCHC 32.2 g/dl (32.0-35.9); MEAN CELL VOLUME 81.9 fl (80-96); MONO % 7.8 % (3.8-10.2); NEUT % 76.4 % (42.8-82.8); PLATELET COUNT 423 K/MM3 (134-434); RBC 4.16 M/mm3 (4.00-5.60); RDW 16.9 % (11.9-15.9); URINE APPEARANCE CLEAR; URINE BILIRUBIN NEGATIVE (<2.0 mg/dL); URINE COLOR YELLOW; URINE GLUCOSE (UA) NEGATIVE (NEGATIVE); URINE KETONE NEGATIVE (NEGATIVE); URINE LEUK ESTERASE NEGATIVE (NEGATIVE); URINE NITRITE NEGATIVE (NEGATIVE); URINE UROBILINOGEN NEGATIVE mg/dL (0.2-1.0); WHITE BLOOD COUNT 10.2 K/mm3 (4.0-10.0)
[2018-03-16 09:31] LABS: URINE PROTEIN 2+ (NEGATIVE)
[2018-03-16 09:34] LABS: EPI CELLS RARE /HPF (FEW); URINE BACTERIA RARE /hpf (NONE SEEN)
[2018-03-16 09:53] LABS: ALBUMIN 3.1 g/dl (3.4-5.0); BILIRUBIN,DIRECT < 0.2 mg/dL (0.0-0.2); BILIRUBIN,TOTAL 0.4 mg/dL (0.2-1.0); PHOSPHOROUS 3.1 mg/dL (2.5-4.9); SGOT/AST 11 U/L (15-37); SGPT/ALT 17 U/L (13-61)
[2018-03-16 09:54] LABS: ALBUMIN 3.1 g/dl (3.4-5.0); ALK PHOS 55 U/L (45-117); ANION GAP 11 MMOL/L (8-16); BLOOD UREA NITROGEN 15 mg/dL (7-18); CALCIUM 9.3 mg/dL (8.5-10.1); CHLORIDE 102 mmol/L (98-107); CO2 29 mmol/L (21-32); CREATININE 1.2 mg/dL (0.55-1.3); GLUCOSE,RANDOM 123 mg/dL (74-106); SGOT/AST 12 U/L (15-37); SGPT/ALT 18 U/L (13-61); SODIUM 142 mmol/L (136-145)
[2018-03-16 10:04] LABS: ALK PHOS 54 U/L (45-117); BILIRUBIN,TOTAL 0.4 mg/dL (0.2-1.0)
[2018-03-16 14:21] VITALS: BP 133/85; PULSE 96; TEMP 98
[2018-03-16] MEDS ORDERED: PORTA CATH FLUSH 10 ML IVPUSH ONE (14:21)
== END 2018-03-16 13:05 | disposition home or self-care (01) ==
LOC: JONCCHEMO 07:36 → J7W 09:33 → JONCCHEMO 13:05
PROVIDERS: ATTEND Internal Medicine Hematology & Oncology
DX: Z51.11 Encounter for antineoplastic chemotherapy (principal); C45.0 Mesothelioma of pleura
CPT/HCPCS: 36415; 80053; 80076; 81003; 81015; 82306; 83735; 84100; 84439; 84443; 85025; 87086; 96361; 96367; 96375; 96413; J1100; J2405; J9299

== ENCOUNTER 2018-04-20 07:45 | Day surgery (SDC) | payer MEDICARE, OTHER ==
[2018-04-20 09:18] LABS: BASO % 0.9 % (0-2.0); EOS % 5.6 % (0-4.5); HEMATOCRIT 37.5 % (35.4-49); LYMPH % 16.4 % (8-40); MCH 26.4 pg (25.7-33.7); MCHC 32.1 g/dl (32.0-35.9); MEAN CELL VOLUME 82.3 fl (80-96); MEAN PLT VOLUME 7.7 fl (7.5-11.1); MONO % 9.8 % (3.8-10.2); NEUT % 67.3 % (42.8-82.8); PLATELET COUNT 342 K/MM3 (134-434); RBC 4.55 M/mm3 (4.00-5.60); RDW 17.7 % (11.9-15.9); WHITE BLOOD COUNT 7.4 K/mm3 (4.0-10.0)
[2018-04-20] MEDS ORDERED: SODIUM CHLORIDE 250 ML IV ONE ×2 (09:30→11:30)
[2018-04-20 09:55] LABS: ALBUMIN 3.5 g/dl (3.4-5.0); ALK PHOS 67 U/L (45-117); ANION GAP 7 MMOL/L (8-16); BILIRUBIN,DIRECT 0.1 mg/dL (0.0-0.2); BILIRUBIN,TOTAL 0.4 mg/dL (0.2-1); BLOOD UREA NITROGEN 19 mg/dL (7-18); CALCIUM 8.8 mg/dL (8.5-10.1); CHLORIDE 100 mmol/L (98-107); CO2 34 mmol/L (21-32); CREATININE 1.1 mg/dL (0.55-1.3); GLUCOSE,RANDOM 102 mg/dL (74-106); SGOT/AST 11 U/L (15-37); SGPT/ALT 20 U/L (13-61); SODIUM 141 mmol/L (136-145); TOT PROT 7.9 g/dl (6.4-8.2)
[2018-04-20] MEDS ORDERED: DEXAMETHASONE INJECTION 10 MG, ONDANSETRON INJECTION 8 MG in SODIUM CHLORIDE 100 ML IVPB ONE (10:00)
[2018-04-20 10:22] VITALS: TEMP 98.5
[2018-04-20] MEDS ORDERED: NIVOLUMAB 200 MG, NIVOLUMAB 40 MG in SODIUM CHLORIDE 100 ML IVPB ONE (10:30)
[2018-04-20] MEDS ORDERED: PORTA CATH FLUSH 10 ML IVPUSH ONE (10:36)
[2018-04-20 13:04] VITALS: BP 127/77
[2018-04-20 13:26] VITALS: PULSE 70
== END 2018-04-20 12:45 | disposition home or self-care (01) ==
LOC: JONCCHEMO 07:45 → J7W 09:44 → JONCCHEMO 12:45
PROVIDERS: ATTEND Internal Medicine Hematology & Oncology
DX: Z51.11 Encounter for antineoplastic chemotherapy (principal); C45.0 Mesothelioma of pleura
CPT/HCPCS: 36415; 80053; 80076; 83735; 85025; 96361; 96367; 96375; 96413; J1100; J9299

== ENCOUNTER 2018-05-04 07:18 | Day surgery (SDC) | payer MEDICARE, OTHER ==
[2018-05-04] MEDS ORDERED: SODIUM CHLORIDE 250 ML IV ONE ×2 (08:00→10:00)
[2018-05-04] MEDS ORDERED: DEXAMETHASONE INJECTION 10 MG, ONDANSETRON INJECTION 8 MG in SODIUM CHLORIDE 100 ML IVPB ONE (08:30)
[2018-05-04] MEDS ORDERED: NIVOLUMAB 200 MG, NIVOLUMAB 40 MG in SODIUM CHLORIDE 100 ML IVPB ONE (09:00)
[2018-05-04 09:38] LABS: BASO % 0.6 % (0-2.0); EOS % 4.7 % (0-4.5); HEMATOCRIT 37.6 % (35.4-49); HEMOGLOBIN 12.6 GM/dL (11.7-16.9); LYMPH % 15.9 % (8-40); MCH 27.5 pg (25.7-33.7); MCHC 33.5 g/dl (32.0-35.9); MEAN CELL VOLUME 82.1 fl (80-96); MEAN PLT VOLUME 7.3 fl (7.5-11.1); MONO % 15.4 % (3.8-10.2); NEUT % 63.4 % (42.8-82.8); PLATELET COUNT 306 K/MM3 (134-434); RBC 4.58 M/mm3 (4.00-5.60); RDW 17.2 % (11.9-15.9); WHITE BLOOD COUNT 7.7 K/mm3 (4.0-10.0)
[2018-05-04 09:58] LABS: ALBUMIN 3.5 g/dl (3.4-5.0); ALK PHOS 69 U/L (45-117); ANION GAP 7 MMOL/L (8-16); BILIRUBIN,DIRECT 0.2 mg/dL (0.0-0.2); BILIRUBIN,TOTAL 0.4 mg/dL (0.2-1); BLOOD UREA NITROGEN 14 mg/dL (7-18); CALCIUM 8.8 mg/dL (8.5-10.1); CHLORIDE 101 mmol/L (98-107); CO2 31 mmol/L (21-32); CREATININE 1.2 mg/dL (0.55-1.3); GLUCOSE,RANDOM 96 mg/dL (74-106); POTASSIUM 4.1 mmol/L (3.5-5.1); SGOT/AST 12 U/L (15-37); SGPT/ALT 21 U/L (13-61); SODIUM 139 mmol/L (136-145); TOT PROT 7.9 g/dl (6.4-8.2)
[2018-05-04 16:07] VITALS: BP 138/78; PULSE 77; TEMP 98
== END 2018-05-04 22:18 | disposition home or self-care (01) ==
LOC: JONCCHEMO 07:18 → J7W 09:24 → JONCCHEMO 22:18
PROVIDERS: ATTEND Internal Medicine Hematology & Oncology
DX: Z51.11 Encounter for antineoplastic chemotherapy (principal); C45.0 Mesothelioma of pleura
CPT/HCPCS: 36415; 80053; 80076; 83735; 85025; 96361; 96367; 96375; 96413; J1100; J2405; J9299

== ENCOUNTER 2018-05-19 07:35 | Day surgery (SDC) | payer MEDICARE, OTHER ==
[2018-05-19] MEDS ORDERED: SODIUM CHLORIDE 250 ML IV ONE ×2 (09:30→11:30)
[2018-05-19] MEDS ORDERED: DEXAMETHASONE INJECTION 10 MG, ONDANSETRON INJECTION 8 MG in SODIUM CHLORIDE 100 ML IVPB ONE (10:00)
[2018-05-19] MEDS ORDERED: NIVOLUMAB 200 MG, NIVOLUMAB 40 MG in SODIUM CHLORIDE 100 ML IVPB ONE (10:30)
[2018-05-19 11:16] LABS: BASO % 0.8 % (0-2.0); EOS % 5.2 % (0-4.5); HEMATOCRIT 36.5 % (35.4-49); HEMOGLOBIN 12.3 GM/dL (11.7-16.9); LYMPH % 21.3 % (8-40); MCH 27.5 pg (25.7-33.7); MCHC 33.8 g/dl (32.0-35.9); MEAN CELL VOLUME 81.4 fl (80-96); MEAN PLT VOLUME 7.3 fl (7.5-11.1); MONO % 13.9 % (3.8-10.2); NEUT % 58.8 % (42.8-82.8); PLATELET COUNT 355 K/MM3 (134-434); RBC 4.48 M/mm3 (4.00-5.60); WHITE BLOOD COUNT 6.5 K/mm3 (4.0-10.0)
[2018-05-19 12:00] LABS: ALBUMIN 3.4 g/dl (3.4-5.0); ALK PHOS 59 U/L (45-117); ANION GAP 7 MMOL/L (8-16); BILIRUBIN,DIRECT 0.1 mg/dL (0.0-0.2); BILIRUBIN,TOTAL 0.4 mg/dL (0.2-1); BLOOD UREA NITROGEN 19 mg/dL (7-18); CALCIUM 9.3 mg/dL (8.5-10.1); CHLORIDE 101 mmol/L (98-107); CO2 30 mmol/L (21-32); CREATININE 1.2 mg/dL (0.55-1.3); GLUCOSE,RANDOM 93 mg/dL (74-106); MAGNESIUM 2.3 mg/dL (1.8-2.4); POTASSIUM 4.5 mmol/L (3.5-5.1); SGOT/AST 20 U/L (15-37); SGPT/ALT 21 U/L (13-61); SODIUM 138 mmol/L (136-145); TOT PROT 7.6 g/dl (6.4-8.2)
[2018-05-19 16:13] VITALS: TEMP 98
[2018-05-19] MEDS ORDERED: PORTA CATH FLUSH 10 ML IVPUSH ONE (16:13)
[2018-05-19 16:15] VITALS: BP 109/51; PULSE 76
== END 2018-05-19 15:30 | disposition home or self-care (01) ==
LOC: JONCCHEMO 07:35 → J7W 12:30 → JONCCHEMO 15:30
PROVIDERS: ATTEND Internal Medicine Hematology & Oncology
DX: Z51.11 Encounter for antineoplastic chemotherapy (principal); C45.0 Mesothelioma of pleura
CPT/HCPCS: 36415; 80053; 80076; 83735; 84439; 84443; 85025; 96361; 96367; 96375; 96413; J1100; J9299

== ENCOUNTER 2018-06-01 07:27 | Day surgery (SDC) | payer MEDICARE, OTHER ==
[2018-06-01 09:02] LABS: BASO % 0.9 % (0-2.0); EOS % 5.6 % (0-4.5); HEMATOCRIT 37.4 % (35.4-49); HEMOGLOBIN 11.9 GM/dL (11.7-16.9); LYMPH % 21.2 % (8-40); MCH 26.3 pg (25.7-33.7); MEAN CELL VOLUME 82.5 fl (80-96); MEAN PLT VOLUME 7.1 fl (7.5-11.1); MONO % 10.1 % (3.8-10.2); NEUT % 62.2 % (42.8-82.8); PLATELET COUNT 286 K/MM3 (134-434); RBC 4.53 M/mm3 (4.00-5.60); RDW 17.3 % (11.9-15.9); WHITE BLOOD COUNT 7.4 K/mm3 (4.0-10.0)
[2018-06-01] MEDS ORDERED: SODIUM CHLORIDE 250 ML IV ONE ×2 (09:30→11:30)
[2018-06-01] MEDS ORDERED: amLODIPine BESYLATE 5 MG TABLET (FP) PO ONE (09:30)
[2018-06-01] MEDS ORDERED: DEXAMETHASONE SODIUM PHOSPHATE 10 MG, ONDANSETRON INJECTION 8 MG in SODIUM CHLORIDE 100 ML IVPB ONE (10:00)
[2018-06-01] MEDS ORDERED: NIVOLUMAB 200 MG, NIVOLUMAB 40 MG in SODIUM CHLORIDE 100 ML IVPB ONE (10:30)
[2018-06-01 10:34] VITALS: TEMP 97.9
[2018-06-01] MEDS ORDERED: PORTA CATH FLUSH 10 ML IVPUSH ONE (10:42)
[2018-06-01 11:14] LABS: ALBUMIN 3.6 g/dl (3.4-5.0); ALK PHOS 66 U/L (45-117); ANION GAP 8 MMOL/L (8-16); BILIRUBIN,DIRECT 0.1 mg/dL (0.0-0.2); BILIRUBIN,TOTAL 0.4 mg/dL (0.2-1); BLOOD UREA NITROGEN 16 mg/dL (7-18); CALCIUM 8.8 mg/dL (8.5-10.1); CHLORIDE 101 mmol/L (98-107); CO2 29 mmol/L (21-32); CREATININE 1.3 mg/dL (0.55-1.3); GLUCOSE,RANDOM 106 mg/dL (74-106); MAGNESIUM 1.9 mg/dL (1.8-2.4); POTASSIUM 3.4 mmol/L (3.5-5.1); SGOT/AST 18 U/L (15-37); SGPT/ALT 24 U/L (13-61); SODIUM 138 mmol/L (136-145); TOT PROT 7.3 g/dl (6.4-8.2)
[2018-06-01] MEDS ORDERED: POTASSIUM CHLORIDE TABS 20 MEQ TABLET.ER (FP) PO ONE (12:00)
[2018-06-01 16:49] VITALS: PULSE 68
[2018-06-01 16:53] VITALS: BP 126/91
== END 2018-06-01 14:15 | disposition home or self-care (01) ==
LOC: JONCCHEMO 07:27 → J7W 09:18 → JONCCHEMO 14:15
PROVIDERS: ATTEND Internal Medicine Hematology & Oncology
DX: Z51.11 Encounter for antineoplastic chemotherapy (principal); C45.0 Mesothelioma of pleura
CPT/HCPCS: 36415; 80053; 80076; 83735; 85025; 96367; 96375; 96413; J9299

== ENCOUNTER 2018-06-15 07:06 | Day surgery (SDC) | payer MEDICARE, OTHER ==
[2018-06-15 08:36] VITALS: TEMP 97.8
[2018-06-15 09:12] LABS: BASO % 0.9 % (0-2.0); HEMATOCRIT 39.3 % (35.4-49); HEMOGLOBIN 12.6 GM/dL (11.7-16.9); LYMPH % 21.3 % (8-40); MCH 26.8 pg (25.7-33.7); MCHC 32.1 g/dl (32.0-35.9); MEAN CELL VOLUME 83.3 fl (80-96); MEAN PLT VOLUME 7.4 fl (7.5-11.1); MONO % 8.1 % (3.8-10.2); NEUT % 63.7 % (42.8-82.8); PLATELET COUNT 281 K/MM3 (134-434); RBC 4.72 M/mm3 (4.00-5.60); RDW 16.7 % (11.9-15.9); WHITE BLOOD COUNT 8.3 K/mm3 (4.0-10.0)
[2018-06-15] MEDS ORDERED: SODIUM CHLORIDE 250 ML IV ONE ×2 (09:30→11:30)
[2018-06-15 09:31] LABS: ALBUMIN 3.8 g/dl (3.4-5.0); ALK PHOS 74 U/L (45-117); ANION GAP 7 MMOL/L (8-16); BILIRUBIN,TOTAL 0.6 mg/dL (0.2-1); BLOOD UREA NITROGEN 15 mg/dL (7-18); CALCIUM 8.9 mg/dL (8.5-10.1); CHLORIDE 104 mmol/L (98-107); CO2 28 mmol/L (21-32); CREATININE 1.4 mg/dL (0.55-1.3); GLUCOSE,RANDOM 128 mg/dL (74-106); POTASSIUM 3.8 mmol/L (3.5-5.1); SGOT/AST 19 U/L (15-37); SGPT/ALT 27 U/L (13-61); SODIUM 138 mmol/L (136-145); TOT PROT 7.8 g/dl (6.4-8.2)
[2018-06-15 09:37] LABS: ALBUMIN 3.8 g/dl (3.4-5.0); BILIRUBIN,DIRECT 0.2 mg/dL (0.0-0.2); BILIRUBIN,TOTAL 0.6 mg/dL (0.2-1); MAGNESIUM 1.9 mg/dL (1.8-2.4); TOT PROT 7.6 g/dl (6.4-8.2)
[2018-06-15] MEDS ORDERED: DEXAMETHASONE SODIUM PHOSPHATE 10 MG, ONDANSETRON INJECTION 8 MG in SODIUM CHLORIDE 100 ML IVPB ONE (10:00)
[2018-06-15] MEDS ORDERED: NIVOLUMAB 200 MG, NIVOLUMAB 40 MG in SODIUM CHLORIDE 100 ML IVPB ONE (10:30)
[2018-06-15] MEDS ORDERED: PORTA CATH FLUSH 10 ML IVPUSH ONE (13:53)
[2018-06-15 13:56] VITALS: BP 119/64; PULSE 72
== END 2018-06-15 12:40 | disposition home or self-care (01) ==
LOC: JONCCHEMO 07:06 → J7W 09:33 → JONCCHEMO 12:40
PROVIDERS: ATTEND Internal Medicine Hematology & Oncology
PROC: 3E04305 Introduction of Other Antineoplastic into Central Vein, Percutaneous Approach (ICD-10-PCS; principal; 2018-06-15)
PROC: 3E043GC Introduction of Other Therapeutic Substance into Central Vein, Percutaneous Approach (ICD-10-PCS; 2018-06-15)
DX: Z51.11 Encounter for antineoplastic chemotherapy (principal); C45.0 Mesothelioma of pleura; I10 Essential (primary) hypertension; E78.00 Pure hypercholesterolemia, unspecified
CPT/HCPCS: 36415; 80053; 80076; 83735; 84439; 84443; 85025; 96367; 96375; 96413; J9299

== ENCOUNTER 2018-07-06 05:59 | Day surgery (SDC) | payer MEDICARE, OTHER ==
[2018-07-06] MEDS ORDERED: SODIUM CHLORIDE 250 ML IV ONE ×2 (08:00→10:00)
[2018-07-06] MEDS ORDERED: DEXAMETHASONE SODIUM PHOSPHATE 10 MG, ONDANSETRON INJECTION 8 MG in SODIUM CHLORIDE 100 ML IVPB ONE (08:30)
[2018-07-06] MEDS ORDERED: NIVOLUMAB 200 MG, NIVOLUMAB 40 MG in SODIUM CHLORIDE 100 ML IVPB ONE (09:00)
[2018-07-06 09:09] LABS: BASO % 0.7 % (0-2.0); EOS % 4.8 % (0-4.5); HEMOGLOBIN 12.1 GM/dL (11.7-16.9); LYMPH % 24.3 % (8-40); MCH 28.5 pg (25.7-33.7); MCHC 34.5 g/dl (32.0-35.9); MEAN CELL VOLUME 82.8 fl (80-96); MEAN PLT VOLUME 7.6 fl (7.5-11.1); MONO % 9.5 % (3.8-10.2); NEUT % 60.7 % (42.8-82.8); PLATELET COUNT 360 K/MM3 (134-434); RBC 4.23 M/mm3 (4.00-5.60); RDW 16.3 % (11.9-15.9); WHITE BLOOD COUNT 7.3 K/mm3 (4.0-10.0)
[2018-07-06 09:14] LABS: ALBUMIN 3.5 g/dl (3.4-5.0); ALK PHOS 64 U/L (45-117); ANION GAP 6 MMOL/L (8-16); BILIRUBIN,DIRECT 0.2 mg/dL (0.0-0.2); BILIRUBIN,TOTAL 0.4 mg/dL (0.2-1); BLOOD UREA NITROGEN 16 mg/dL (7-18); CALCIUM 8.8 mg/dL (8.5-10.1); CHLORIDE 101 mmol/L (98-107); CO2 31 mmol/L (21-32); CREATININE 1.4 mg/dL (0.55-1.3); GLUCOSE,RANDOM 136 mg/dL (74-106); POTASSIUM 3.7 mmol/L (3.5-5.1); SGOT/AST 11 U/L (15-37); SGPT/ALT 21 U/L (13-61); SODIUM 138 mmol/L (136-145); TOT PROT 7.4 g/dl (6.4-8.2)
[2018-07-06] MEDS ORDERED: PORTA CATH FLUSH 10 ML IVPUSH ONE (16:30)
[2018-07-06 16:31] VITALS: BP 129/73; PULSE 91; TEMP 97.7
== END 2018-07-06 14:00 | disposition home or self-care (01) ==
LOC: JONCCHEMO 05:59 → J7W 09:46 → JONCCHEMO 14:00
PROVIDERS: ATTEND Internal Medicine Hematology & Oncology
DX: Z51.11 Encounter for antineoplastic chemotherapy (principal); C45.0 Mesothelioma of pleura
CPT/HCPCS: 36415; 80048; 80076; 83735; 85025; 96367; 96375; 96413; J2405; J9299

== ENCOUNTER 2018-07-11 20:53 | Inpatient (IN) | payer MEDICARE, OTHER ==
--- NOTE | 2018-07-11 21:14 | PDOC ---
History of Present Illness - General Chief Complaint: Shortness of Breath Stated Complaint: SHORTNESS OF BREATH, ASTHMA Time Seen by Provider: 07/11/18 21:12 History Source: Patient - History of Present Illness Initial Comments: 07/11/18 21:24 The patient is a 67 year old male with a PMH of Asthma (no hospitalizations/ intubations), HLD, CHF, Nephrolithiasis, Mesothelioma presents to our ED c/o 1 day h/o shortness of breath. Patient states he woke up from sleep this morning around 1 a.m. gasping for air. Tried his Albuterol inhaler with little relief. Was evaluated by his PMD earlier today and given a Duo Neb with symptomatic improvement. Presented to the ED as his symptoms returned. Notes he is currently completing chemotherapy for his mesothelioma with Keytruda. The patient denies fevers/chills. Girlfriend @ bedside notes patient has been coughing with some sputum and today she noted streaks of blood in his sputum. The patient denies chest pain, lightheadedness, abdominal pain, nausea/vomiting , diaphoresis/palpitations. Allergy: Sulfur Oncologist: Dr. Newman Past History - Past Medical History Allergies/Adverse Reactions: Allergies Allergy/AdvReac Type Severity Reaction Status Date / Time sulfur [From Sulfur-8] Allergy Mild Rash Verified 07/11/18 21:04 Home Medications: Ambulatory Orders Amlodipine Besylate [Norvasc -] 5 mg PO DAILY 08/11/17 Aspirin [Ecotrin] 81 mg PO DAILY 08/11/17 Carvedilol 12.5 mg PO DAILY 08/11/17 Fenofibrate [Lipofen] 150 mg PO DAILY 08/11/17 Folic Acid 1 mg PO DAILY 08/11/17 Furosemide [Lasix] 40 mg PO DAILY 08/11/17 Omeprazole Magnesium [Prilosec Otc] 20 mg PO DAILY 08/11/17 Methylprednisolone [Medrol Dose Alexandr] 4 mg PO ASDIR #21 tablet 08/13/17 Triamcinolone 0.1% Cream [Aristocort 0.1% Cream -] 1 applic TP BID #1 applic Asthma: Yes Cardiac Disorders: Yes COPD: No CHF: Yes Hypercholesterolemia: Yes Kidney Stones: Yes Lung CA: (MESOTHELIOMA) Other medical history: MESOTHELIOMA - Surgical History Lung Surgery: Yes (lung biopsy) - Suicide/Smoking/Psychosocial Hx Smoking History: Never smoked Have you smoked in the past 12 months: No If you are a former smoker, when did you quit?: LAST YEAR Review of Systems - Review of Systems Constitutional: No: Chills, Fever HEENTM: No: Blurred Vision, Double Vision Respiratory: Yes: Cough, Shortness of Breath. No: Stridor, Wheezing, Hemoptysis Cardiac (ROS): No: Chest Pain, Lightheadedness, Palpitations, Syncope ABD/GI: No: Constipated, Diarrhea, Nausea, Vomiting : No: Burning, Dysuria *Physical Exam - Vital Signs Last Vital Signs Temp Pulse Resp BP Pulse Ox 98.9 F 100 H 24 H 142/58 L 94 L 07/11/18 21:01 07/11/18 21:01 07/11/18 21:01 07/11/18 21:01 07/11/18 21:01 - Physical Exam General Appearance: Yes: Nourished, Appropriately Dressed HEENT: positive: Normal Voice, Hearing Grossly Normal Neck: positive: Trachea midline, Supple Respiratory/Chest: positive: Lungs Clear, Labored Respiration, Rapid RR, Other ( lungs CLTA, decreased breath sounds @ lung bases B/L). negative: Crackles, Wheezing Cardiovascular: positive: S1, S2. negative: Edema, JVD Vascular Pulses: Dorsalis-Pedis (R): 2+, Doralis-Pedis (L): 2+ Gastrointestinal/Abdominal: positive: Normal Bowel Sounds, Soft Extremity: positive: Normal Capillary Refill, Normal Inspection Integumentary: positive: Normal Color, Dry, Warm Neurologic: positive: Fully Oriented, Alert Moderate Sedation - Procedure Monitoring Vital Signs: Procedure Monitoring Vital Signs Temperature 98.9 F 07/11/18 21: Pulse Rate 100 H 07/11/18 21:01 Respiratory Rate 24 H 07/11/18 21:01 Blood Pressure 142/58 L 07/11/18 21:01 O2 Sat by Pulse Oximetry (%) 94 L 07/11/18 21:01 ED Treatment Course - LABORATORY CBC & Chemistry Diagram: 07/11/18 22:06 07/11/18 22:06 Medical Decision Making - Medical Decision Making 07/11/18 21:24 67 year old male presents to ED c/o shortness of breath. Belly breathing, Hypoxic (SpO2 91%) @ presentation. Will give Duo Neb for symptomatic relief. Basic labs, CXR, ABG and CT chest. Consider Asthma Exacerbation, PNA, Pneumonitis 2/2 to Keytruda, less likely ACS. Consider PE, but low clinical suspicion as lack of risk factors, hypoxia more likely 2/2 to underlying malignancy vs medication effect. 07/12/18 00:38 Labs significant for Hb 10.6 (previous Hb 12.1 on 07/06/18) Mild CYNDIE (Cr 1.8 today, 1.4 on 07/06/17) 07/12/18 00:40 Patient reassessed @ bedside SpO2 100% on 4L NC Counseled on plan of care. EKG, ABG pending Patient signed out to Dr. Borden (Resident) and Dr. Benson (Attending) *DC/Admit/Observation/Transfer Diagnosis at time of Disposition: Shortness of breath - Referrals Referrals: Gael Maddox MD [Primary Care Provider] - - Patient Instructions - Post Discharge Activity
[2018-07-11] MEDS ORDERED: ALBUTEROL SO4 2.5/IPRATROPIUM 0.5 INH SOL 3 ML VIAL.NEB. NEB ONE ×2 (21:23→21:25)
[2018-07-11 22:41] LABS: BASO % 0.6 % (0-2.0); HEMATOCRIT 30.9 % (35.4-49); HEMOGLOBIN 10.6 GM/dL (11.7-16.9); LYMPH % 15.6 % (8-40); MCH 28.3 pg (25.7-33.7); MCHC 34.2 g/dl (32.0-35.9); MEAN CELL VOLUME 82.7 fl (80-96); MEAN PLT VOLUME 7.1 fl (7.5-11.1); MONO % 13.3 % (3.8-10.2); NEUT % 65.5 % (42.8-82.8); PLATELET COUNT 346 K/MM3 (134-434); RBC 3.74 M/mm3 (4.00-5.60); RDW 16.2 % (11.9-15.9); WHITE BLOOD COUNT 8.3 K/mm3 (4.0-10.0)
[2018-07-11 23:24] LABS: ALBUMIN 3.5 g/dl (3.4-5.0); ALK PHOS 71 U/L (45-117); ANION GAP 7 MMOL/L (8-16); BILIRUBIN,TOTAL 0.3 mg/dL (0.2-1); BLOOD UREA NITROGEN 22 mg/dL (7-18); CALCIUM 8.8 mg/dL (8.5-10.1); CHLORIDE 101 mmol/L (98-107); CO2 31 mmol/L (21-32); CREATININE 1.8 mg/dL (0.55-1.3); GLUCOSE,RANDOM 107 mg/dL (74-106); N-TERMINAL BNP 344.1 pg/ml (5-125); POTASSIUM 3.8 mmol/L (3.5-5.1); SGOT/AST 20 U/L (15-37); SGPT/ALT 31 U/L (13-61); SODIUM 139 mmol/L (136-145); TOT PROT 7.2 g/dl (6.4-8.2)
--- NOTE | 2018-07-11 23:47 | PDOC ---
Attending Attestation - HPI HPI: 07/12/18 00:10 Patient is a 67 year old male with past medical history of asthma, hyperlipidemia, CHF, nephrolithiasis, and mesothelioma who presents with few day history of worsening shortness of breath. Patient states his symptoms have worsened to the point where he becomes short of breath when he bends over to tie his shoes or walk short distances. He also notes a productive cough and bringing up thick phlegm, which yesterday was tinted with blood. Patient is being overseen by Dr. Newman and is receiving chemotherapy, next round is to be given on 07/22. Last PET scan was about 2-3 months ago. - Physicial Exam PE: 07/12/18 00:10 Exam performed after patient received nebulizer GENERAL: Awake, alert, and fully oriented, in no acute distress LUNGS: Dyspneic, Breath sounds equal, clear to auscultation bilaterally. No wheezes, and no crackles HEART: Regular rate and rhythm, normal S1 and S2, no murmurs, rubs or gallops ABDOMEN: Soft, protuberant, nontender, normoactive bowel sounds. No guarding, no rebound. No masses EXTREMITIES: Normal range of motion, no edema. No clubbing or cyanosis. NEUROLOGICAL: Cranial nerves II through XII grossly intact. Normal speech SKIN: Warm, Dry, normal turgor, no rashes or lesions noted. - Medical Decision Making 07/12/18 00:11 Documentation prepared by Katie Aviles, acting as phlebotomist medical lab assistant for Collette Benson MD. <Katie Aviles - Last Filed: 07/12/18 00:10> - Resident Resident Name: Anastacia Valenzuela - ED Attending Attestation I have performed the following: I have examined & evaluated the patient, The case was reviewed & discussed with the resident, I agree w/resident's findings & plan, Exceptions are as noted - Medical Decision Making EKG: SR rate of 86 bpm, axis nml, 1st degree av block, no st elevations or depressions, t waves flattened 07/12/18 00:13 Laboratory Tests 07/06/18 07/06/18 07/11/18 08:30 08:30 22:06 WBC 7.3 8.3 Hgb 12.1 10.6 L Hct 35.0 L 30.9 L Plt Count 360 D 346 BUN 16 Creatinine 1.4 H Troponin I B-Natriuretic Peptide 07/11/18 22:06 WBC Hgb Hct Plt Count BUN 22 H Creatinine 1.8 H Troponin I < 0.02 B-Natriuretic Peptide 344.1 H CXR - nml Labs reveal: 1. Hgb drop 2. CYNDIE trop negative guiaic sent CT chest ordered (eval for pneumonitis) Anticipate admission 07/12/18 00:57 Laboratory Tests 07/11/18 23:54 Stool Occult Blood Negative 07/12/18 02:07 <Collette Benson - Last Filed: 07/12/18 02:10>
[2018-07-12 01:26] LABS: ARTERIAL BLD GAS O2 SATURATION 97.3 % (90-98.9); ARTERIAL BLOOD GAS PCO2 41.7 mmHg (35-45); ARTERIAL BLOOD GAS pH 7.47 (7.35-7.45)
[2018-07-12 01:27] LABS: ALLENS TEST POSITIVE; ARTERIAL BLOOD GAS BASE EXCESS 5.8 meq/l (-2-2); CARBOXYHEMOGLOBIN 0.9 gm% (0.5-2.0)
--- NOTE | 2018-07-12 04:15 | PDOC ---
*Physical Exam - Vital Signs Last Vital Signs Temp Pulse Resp BP Pulse Ox 98.9 F 100 H 24 H 142/58 L 94 L 07/11/18 21:01 07/11/18 21:01 07/11/18 21:01 07/11/18 21:01 07/11/18 21:01 ED Treatment Course - LABORATORY CBC & Chemistry Diagram: 07/18/18 06:00 07/18/18 06:00 - ADDITIONAL ORDERS Additional order review: Laboratory Results 07/12/18 07/11/18 07/11/18 00:50 23:54 22:06 Anticoagulation Therapy No Result Required. Puncture Site Right brachial ABG pH 7.47 H ABG pCO2 at Pt Temp 41.7 ABG pO2 at Pt Temp 104.0 H ABG HCO3 29.6 H ABG O2 Sat (Measured) 97.3 ABG O2 Content 13.6 L ABG Base Excess 5.8 H Amrit Test Positive Carboxyhemoglobin 0.9 Methemoglobin 0.6 O2 Delivery Device N/c Oxygen Flow Rate 4.0lpm Vent Mode No Result Required. Vent Rate No Result Required. Mechanical Rate No Result Required. Pressure Support Vent No Result Required. Sodium 139 Potassium 3.8 Chloride 101 Carbon Dioxide 31 Anion Gap 7 L BUN 22 H Creatinine 1.8 H Creat Clearance w eGFR 37.82 Random Glucose 107 H Calcium 8.8 Total Bilirubin 0.3 AST 20 ALT 31 Alkaline Phosphatase 71 Creatine Kinase 136 Troponin I < 0.02 B-Natriuretic Peptide 344.1 H Total Protein 7.2 Albumin 3.5 Stool Occult Blood Negative 07/11/18 22:06 RBC 3.74 L MCV 82.7 MCHC 34.2 RDW 16.2 H MPV 7.1 L Neutrophils % 65.5 Lymphocytes % 15.6 D Monocytes % 13.3 H Eosinophils % 5.0 H Basophils % 0.6 - Medications Given in the ED: ED Medications Discontinued Medications Generic Name Dose Route Start Last Admin Trade Name Freq PRN Reason Stop Dose Admin Albuterol/Ipratropium 1 amp 07/11/18 21:23 07/11/18 21:28 Duoneb - NEB 07/11/18 21:24 1 amp ONCE ONE Administration Medical Decision Making - Medical Decision Making 07/18/18 19:57 Patient signed out by resident Dr. Valenzuela In short patient is a 67 year old man with known mesothelioma, on keytruda who presents with shortness of breath. considering peumonitis vs malignancy vs asthma exacerb vs pna. ABG pending. Admission pending. Patient admitted to medicine for further workup and evaluation. 0 *DC/Admit/Observation/Transfer Diagnosis at time of Disposition: Shortness of breath - Discharge Dispostion Decision to Admit order: Yes - Referrals - Patient Instructions - Post Discharge Activity
--- NOTE | 2018-07-12 04:15 | PDOC ---
*Physical Exam - Vital Signs Last Vital Signs Temp Pulse Resp BP Pulse Ox 98.9 F 100 H 24 H 142/58 L 94 L 07/11/18 21:01 07/11/18 21:01 07/11/18 21:01 07/11/18 21:01 07/11/18 21:01 ED Treatment Course - LABORATORY CBC & Chemistry Diagram: 07/11/18 22:06 07/11/18 22:06 - ADDITIONAL ORDERS Additional order review: Laboratory Results 07/12/18 07/11/18 07/11/18 00:50 23:54 22:06 Anticoagulation Therapy No Result Required. Puncture Site Right brachial ABG pH 7.47 H ABG pCO2 at Pt Temp 41.7 ABG pO2 at Pt Temp 104.0 H ABG HCO3 29.6 H ABG O2 Sat (Measured) 97.3 ABG O2 Content 13.6 L ABG Base Excess 5.8 H Amrit Test Positive Carboxyhemoglobin 0.9 Methemoglobin 0.6 O2 Delivery Device N/c Oxygen Flow Rate 4.0lpm Vent Mode No Result Required. Vent Rate No Result Required. Mechanical Rate No Result Required. Pressure Support Vent No Result Required. Sodium 139 Potassium 3.8 Chloride 101 Carbon Dioxide 31 Anion Gap 7 L BUN 22 H Creatinine 1.8 H Creat Clearance w eGFR 37.82 Random Glucose 107 H Calcium 8.8 Total Bilirubin 0.3 AST 20 ALT 31 Alkaline Phosphatase 71 Creatine Kinase 136 Troponin I < 0.02 B-Natriuretic Peptide 344.1 H Total Protein 7.2 Albumin 3.5 Stool Occult Blood Negative 07/11/18 22:06 RBC 3.74 L MCV 82.7 MCHC 34.2 RDW 16.2 H MPV 7.1 L Neutrophils % 65.5 Lymphocytes % 15.6 D Monocytes % 13.3 H Eosinophils % 5.0 H Basophils % 0.6 - Medications Given in the ED: ED Medications Discontinued Medications Generic Name Dose Route Start Last Admin Trade Name Freq PRN Reason Stop Dose Admin Albuterol/Ipratropium 1 amp 07/11/18 21:23 07/11/18 21:28 Duoneb - NEB 07/11/18 21:24 1 amp ONCE ONE Administration Medical Decision Making - Medical Decision Making 07/12/18 04:15 Patient Name: TY ALLEN THIS IS A PRELIMINARY REPORT FROM IMAGING RESIDENTIAL FIELD MANAGER DATE OF SERVICE: 2018-07-12 02:09:59 IMAGES: [id number] EXAM: CT CHEST WITHOUT CONTRAST Bilateral calcified pleural plaques, enlarged mediastinal lymph nodes, and nodular left pleural thickening/subpleural left lung nodules, consistent with history of mesothelioma. Small bilateral pleural effusions. No pneumonia. Small pericardial effusion. Right chest infusion port, catheter tip near superior cavoatrial junction. 2.7 cm adenoma left adrenal gland. Cholelithiasis. Left renal cyst. 07/12/18 04:16 Pt has SOB; known mesothelioma; on a new medication. We will admit for pulm eval. Pt also needs to discuss whether he needs home O2. *DC/Admit/Observation/Transfer Diagnosis at time of Disposition: Shortness of breath - Referrals Referrals: Gael Maddox MD [Primary Care Provider] - - Patient Instructions - Post Discharge Activity
[2018-07-12] MEDS ORDERED: SODIUM CHLORIDE 1,000 ML IV SCH (06:15)
--- NOTE | 2018-07-12 06:33 | HP ---
CHIEF COMPLAINT: worsening SOB PCP: Dr. Maddox HISTORY OF PRESENT ILLNESS: 67 y/o M with hx asthma, HLD, CHF (unknown when last ECHO), nephrolithiasis, mesothelioma (dx 2017) who presents to the ED c/o worsening SOB over the past two nights. As per pt, ever since his dx of mesothelioma 2 yrs prior, he has had increased SOB. However this has been immediately exacerbated recently over the last 2 weeks. However two nights ago he woke up gasping for air, and felt as if his throat was filled with saliva. Pt was unable to sleep, and found that yesterday AM, he was also unable to tie his shoelaces and put his socks on d/t this SOB. States that he has had recent med change of ventolin and incruse, which he started using three days prior. This has not alleviated his current sx. During this time, pt denies SANCHEZ, fever, chills, chest pain, or changes in urinary or bowel function. While in the ED, pt has also required 02 to maintain his sat 93-94%. At home he does not use 02. He was dx with mesothelioma in 2017. Initially, he underwent chemo tx with ? inlyta every two weeks, followed by optevo, of which he completed 6-7 cycles recently. He is next due on 07/22. 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 stopped in 2017 two weeks before his mesothelioma dx Alcohol: socially Drugs: marijuana Family History: mother, daughter- asthma Allergies sulfur [From Sulfur-8] Allergy (Mild, Verified 07/11/18 21:04) Rash ALLERGY RECIEVED FROM DR. TREVINO'S ORDER HOME MEDICATIONS: Home Medications Medication Instructions Recorded Amlodipine Besylate [Norvasc -] 5 mg PO DAILY 08/11/17 Aspirin [Ecotrin] 81 mg PO DAILY 08/11/17 Carvedilol 12.5 mg PO DAILY 08/11/17 Fenofibrate [Lipofen] 160 mg PO DAILY 08/11/17 Folic Acid 1 mg PO DAILY 08/11/17 Furosemide [Lasix] 40 mg PO DAILY 08/11/17 Omeprazole Magnesium [Prilosec Otc] 20 mg PO DAILY 08/11/17 Triamcinolone 0.1% Cream 1 applic TP BID #1 applic 08/14/17 [Aristocort 0.1% Cream -] Budesonide/Formeterol Fumarate 2 inh IH DAILY 07/12/18 [SYMBICORT 80/4.5mcg -] Ipratropium/Albuterol Sulfate 4 gm IH BID 07/12/18 [Combivent Respimat Inhal [place]] Umeclidinium [place] [Incruse 1 puff IH TID 07/12/18 Ellipta] REVIEW OF SYSTEMS CONSTITUTIONAL: Absent: fever, chills, diaphoresis, generalized weakness, malaise, loss of appetite, weight change HEENT: Absent: rhinorrhea, nasal congestion, throat pain, throat swelling, difficulty swallowing, mouth swelling, ear pain, eye pain, visual changes CARDIOVASCULAR: Absent: chest pain, syncope, palpitations, irregular heart rate, lightheadedness , peripheral edema RESPIRATORY: +SOB Absent: cough, shortness of breath, dyspnea with exertion, orthopnea, wheezing, stridor, hemoptysis GASTROINTESTINAL: Absent: abdominal pain, abdominal distension, nausea, vomiting, diarrhea, constipation, melena, hematochezia GENITOURINARY: Absent: dysuria, frequency, urgency, hesitancy, hematuria, flank pain, genital pain MUSCULOSKELETAL: Absent: myalgia, arthralgia, joint swelling, back pain, neck pain SKIN: Absent: rash, itching, pallor HEMATOLOGIC/IMMUNOLOGIC: Absent: easy bleeding, easy bruising, lymphadenopathy, frequent infections ENDOCRINE: Absent: unexplained weight gain, unexplained weight loss, heat intolerance, cold intolerance NEUROLOGIC: Absent: headache, focal weakness or paresthesias, dizziness, unsteady gait, seizure, mental status changes, bladder or bowel incontinence PSYCHIATRIC: Absent: anxiety, depression, suicidal or homicidal ideation, hallucinations. PHYSICAL EXAMINATION Vital Signs - 24 hr 07/11/18 07/11/18 20:54 21:01 Temperature 98.9 F Pulse Rate 100 H 100 H Respiratory 24 H Rate Blood Pressure 142/58 L O2 Sat by Pulse 98 94 L Oximetry (%) GENERAL: Pleasant. awake, alert, and fully oriented, in no acute distress. +3L NC 02. with abdominal breathing HEAD: Normal with no signs of trauma. EYES: Pupils equal, round and reactive to light, extraocular movements intact, sclera anicteric, conjunctiva clear. EARS, NOSE, THROAT: Ears normal, nares patent, oropharynx clear without exudates. Moist mucous membranes. NECK: Normal range of motion, supple. CHEST: +R chemoport LUNGS: + decreased breath sounds b/l HEART: Regular rate and rhythm, normal S1 and S2 without murmur, rub or gallop. ABDOMEN: Soft, firm, obese. no guarding, no rebound. ?hepatomegaly LOWER EXTREMITIES: 2+ pt pulses, warm, well-perfused. No peripheral edema. NEUROLOGICAL: Cranial nerves II-XII intact. Normal speech. PSYCHIATRIC: Cooperative. SKIN: Warm, dry, normal turgor Laboratory Tests 07/11/18 07/11/18 07/12/18 22:06 22:06 00:50 WBC 8.3 RBC 3.74 L Hgb 10.6 L Hct 30.9 L Plt Count 346 ABG pH 7.47 H ABG pCO2 at Pt Temp 41.7 ABG pO2 at Pt Temp 104.0 H ABG HCO3 29.6 H ABG O2 Sat (Measured) 97.3 ABG O2 Content 13.6 L ABG Base Excess 5.8 H BUN 22 H Creatinine 1.8 H Troponin I < 0.02 B-Natriuretic Peptide 344.1 H EKst degree AV block. with flattened T waves PRELIMINARY REPORT FROM IMAGING ENGINEERING PSYCHOLOGIST - official report pending. f/u EXAM: CT CHEST WITHOUT CONTRAST Bilateral calcified pleural plaques, enlarged mediastinal lymph nodes, and nodular left pleural thickening/subpleural left lung nodules, consistent with history of mesothelioma. Small bilateral pleural effusions. No pneumonia. Small pericardial effusion. Right chest infusion port, catheter tip near superior cavoatrial junction. 2.7 cm adenoma left adrenal gland. Cholelithiasis. Left renal cyst. ASSESSMENT/PLAN: 67 y/o M with hx asthma, HLD, CHF (unknown when last ECHO), nephrolithiasis, mesothelioma (dx 2017) who presents to the ED c/o acutely worsening SOB over the past two nights and decreased resp status over the last 2 weeks. #SOB -different etiologies possible - r/o PE. as with acute worsening respiratory status, requiring increased 02. does not use 02 at home. also possible 2/2 drug effect of recent chemo (optevo), pneumonitis less likely as not seen by chest CT. less likely infectious as no infiltrates noted. may also be related to pt's distended abdomen, increased pressure on lungs causing incr WOB -V/q scan; as pt with CYNDIE cannot do CTA -ECHO to eval for RH strain -will start hep gtt -NC 02 as needed -c/w incruse, nebs, symbicort, respimat -if PE r/o, and still with SOB may need adjustment in medications -will be seen by Pulm; Dr. Moore #mesothelioma -will f/u with heme onc Trevino -had been on ?inlyta every two weeks, followed by optevo -receives through R chemoport #CHF -f/u ECHO to determine EF and classify -will hold lasix for now d/t CYNDIE. currently not in exacerbation, without overload #HTN- uncontrolled -likely 2/2 discomfort -c/w coreg, amlodipine #CYNDIE -would avoid IVF for time being though CYNDIE, as pt with SOB - could be aspect of overload -renal sono #Firm abdomen -may be 2/2 ?hepatomegaly, cirrhosis, ?fluid -f/u abd sono #F/E/N will avoid IVF for now as with CHF, SOB continue to follow lytes NPO ; can advance in AM #PPX hep gtt #Dispo admit to tele obs Visit type - Emergency Visit Emergency Visit: Yes ED Registration Date: 07/12/18 Care time: The patient presented to the Emergency Department on the above date and was hospitalized for further evaluation of their emergent condition. - New Patient This patient is new to me today: Yes Date on this admission: 07/12/18 - Critical Care Critical Care patient: No
[2018-07-12] MEDS ORDERED: HEPARIN INFUSION - 25,000 UNITS/500 ML INFUS.BAG IVPB ONE (06:50)
[2018-07-12] MEDS: HEPARIN SOD,PORK IN 0.45% NACL 25,000 UNITS/500 ML INFUS.BAG IVPB SCH (06:57)
--- NOTE | 2018-07-12 07:28 | PN ---
Teaching Attending Note Name of Resident: Blanca Jean ATTENDING PHYSICIAN STATEMENT I saw and evaluated the patient. Chart, data , imaging reviewed. I reviewed the resident's note and discussed the case with the resident. I agree with the resident's findings and plan as documented. SUBJECTIVE: 67 y/o M with hx asthma, HLD, CHF (unknown when last ECHO), nephrolithiasis, mesothelioma (dx 2017), chemo tx with inlyta every two weeks, followed by optevo , of which he completed 6-7 cycles recently c/o worsening shortness of breath over the past 2 weeks. No recent travels. Denied any pain. OBJECTIVE: Last Vital Signs Temp Pulse Resp BP Pulse Ox 98.0 F 83 15 121/86 94 L 07/12/18 06:54 07/12/18 06:54 07/12/18 06:54 07/12/18 06:54 07/11/18 21:01 general -appears comfortable heent-atrauamtic chest- clear cv -s1+s+ rrr abdomen - distended ext- no pedal edema Abnormal Lab Results 07/11/18 07/11/18 07/12/18 22:06 22:06 00:50 RBC 3.74 L Hgb 10.6 L Hct 30.9 L RDW 16.2 H MPV 7.1 L Monocytes % 13.3 H Monocytes % (Manual) 1 L D Eosinophils % 5.0 H Eosinophils % (Manual) 9.0 H D ABG pH 7.47 H ABG pO2 at Pt Temp 104.0 H ABG HCO3 29.6 H ABG O2 Content 13.6 L ABG Base Excess 5.8 H Anion Gap 7 L BUN 22 H Creatinine 1.8 H Random Glucose 107 H B-Natriuretic Peptide 344.1 H imaging studies reviewed ASSESSMENT AND PLAN: #Hypoxemia - may be secondary to underlying malignancy. PE should be ruled out in this high risk patient. Possibly medication induced? NO overt evidence of fluid overload on exam, however should r/o ascities in abdomen. -tele/obs -heparin drip empirically pending v/q scan to r/o PE- cannot do CTA due to CYNDIE -supplemental o2 via nasal cannula -heme/onc, pulm eval -trend troponin -echo -c/w home dose bronchodilators -monitor 02 sat closely -repeat ABG #CYNDIE -gentle iv fluid hydration -renal u/s -#Abd distention -u/s of abd to r/o ascites
--- NOTE | 2018-07-12 08:32 | EKG ---
Test Reason : Blood Pressure : / mmHG Vent. Rate : 086 BPM Atrial Rate : 086 BPM P-R Int : 214 ms QRS Dur : 068 ms QT Int : 318 ms P-R-T Axes : 068 036 -66 degrees QTc Int : 380 ms POOR DATA QUALITY, INTERPRETATION MAY BE ADVERSELY AFFECTED SINUS RHYTHM WITH 1ST DEGREE A-V BLOCK ANTERIOR INFARCT (CITED ON OR BEFORE 11-AUG-2017) ABNORMAL ECG WHEN COMPARED WITH ECG OF 11-AUG-2017 15:15, ST NOW DEPRESSED IN ANTERIOR LEADS NONSPECIFIC T WAVE ABNORMALITY NOW EVIDENT IN ANTERIOR LEADS Confirmed by ODILIA LAINEZ, ARIANNA ([id number]) on 07/12/2018 8:32:19 AM Referred By: Confirmed By:ARIANNA HARTLEY MD
[2018-07-12] MEDS ORDERED: CARVEDILOL 12.5 MG TABLET (FP) ONE ×2 (08:43→21:59)
[2018-07-12] MEDS: ASPIRIN COATED 81 MG TABLET.EC PO SCH (09:21)
[2018-07-12] MEDS: FOLIC ACID 1 MG TABLET (FP) PO SCH (09:22)
[2018-07-12] MEDS: FENOFIBRIC ACID 135 MG CAP PO SCH (09:22)
[2018-07-12] MEDS: amLODIPine BESYLATE 5 MG TABLET (FP) PO SCH (09:22)
[2018-07-12] MEDS ORDERED: CARVEDILOL 12.5 MG TABLET (FP) PO SCH (10:00)
[2018-07-12] MEDS ORDERED: PATIENT'S OWN MEDICATION (NON-FORMULARY) (Ipratropium/Albuterol Sulfate [Combivent Respima IH SCH (10:00)
[2018-07-12] MEDS ORDERED: BUDESONIDE/FORMETEROL FUMARATE 80/4.5 mcg INHALER IH SCH (10:00)
--- NOTE | 2018-07-12 11:23 | PN ---
Progress Note, Physician Chief Complaint: Mr Fitch says his breathing feels better today and close to baseline. No cp or n/v. - Current Medication List Current Medications: Active Medications Albuterol/Ipratropium (Duoneb -) 1 amp NEB RBID [facility] Amlodipine Besylate (Norvasc -) 5 mg PO DAILY [facility] Last Admin: 07/12/18 09:22 Dose: 5 mg Aspirin (Ecotrin -) 81 mg PO DAILY [facility] Last Admin: 07/12/18 09:21 Dose: 81 mg Budesonide/Formoterol Fumarate (Symbicort 80/4.5mcg -) 2 puff IH BID [facility] Carvedilol (Coreg -) 12.5 mg PO BID [facility] Fenofibric Acid (Trilipix -) 135 mg PO DAILY [facility] Last Admin: 07/12/18 09:22 Dose: 135 mg Folic Acid (Folic Acid -) 1 mg PO DAILY [facility] Last Admin: 07/12/18 09:22 Dose: 1 mg Heparin Sodium (Porcine) (Heparin -) 1,000 unit IVPUSH PRN PRN PRN Reason: Heparin Heparin Sodium (Porcine) (Heparin -) 5,000 unit IVPUSH PRN PRN PRN Reason: Heparin HEPARIN SOD,PORK IN 0.45% NACL (Heparin-1/2ns 25,000 Units/500) 25,000 units in 500 mls @ 20 mls/hr IVPB TITR [facility]; Protocol Last Admin: 07/12/18 06:57 Dose: 1,000 unit/hr, 20 mls/hr Tiotropium [place] (Spiriva Respimat) 2 puff IH DAILY [facility] - Objective Vital Signs: Vital Signs Temperature 36.7 C 07/12/18 06:54 Pulse Rate 83 07/12/18 06:54 Respiratory Rate 15 07/12/18 06:54 Blood Pressure 121/86 07/12/18 06:54 O2 Sat by Pulse Oximetry (%) 94 L 07/11/18 21:01 Constitutional: Yes: Well Nourished, No Distress, Calm Cardiovascular: Yes: Regular Rate and Rhythm. No: Gallop, Murmur, Rub Respiratory: Yes: Regular, CTA Bilaterally, On Nasal O2. No: Rales, Rhonchi, Wheezes Gastrointestinal: Yes: Normal Bowel Sounds, Soft, Distention. No: Tenderness Extremities: Yes: WNL Edema: No Labs: CBC, BMP 07/11/18 22:06 07/11/18 22:06 Problem List - Problems (1) Shortness of breath Assessment/Plan: -patient states improved -currently on heparin gtt in concern for PE -awaiting pulmonary evaluation and recommendation on V/Q scan Code(s): R06.02 - SHORTNESS OF BREATH (2) CYNDIE (acute kidney injury) Assessment/Plan: -hold lasix -follow up repeat bmp in am Code(s): N17.9 - ACUTE KIDNEY FAILURE, UNSPECIFIED (3) COPD exacerbation Assessment/Plan: -case d/w Dr Moore who will see in consultation -continue inhaled bronchodilators -started on systemic steroids -continue oxygen Code(s): J44.1 - CHRONIC OBSTRUCTIVE PULMONARY DISEASE W (ACUTE) EXACERBATION (4) HTN (hypertension) Assessment/Plan: -well controlled Code(s): I10 - ESSENTIAL (PRIMARY) HYPERTENSION (5) Mesothelioma (pleural) Assessment/Plan: -Dr Newman consulted Code(s): C45.0 - MESOTHELIOMA OF PLEURA
[2018-07-12] MEDS: HEPARIN NA (PORCINE) 5,000 UNITS/ML 1ML VIAL IVPUSH PRN ×2 (13:00→20:13)
[2018-07-12] MEDS ORDERED: PATIENT'S OWN MEDICATION (NON-FORMULARY) (Umeclidinium Bromide [Incruse Ellipta] 1 PUFF) IH SCH (14:00)
[2018-07-12] MEDS: TIOTROPIUM BROMIDE 2.5 MCG (SPIRIVA) RESPIMAT INHALER IH SCH (14:20)
[2018-07-12] MEDS ORDERED: HEPARIN NA (PORCINE) 5,000 UNITS/ML 1ML VIAL ONE ×2 (14:25→20:07)
--- NOTE | 2018-07-12 15:45 | PN ---
Progress Note (short form) - Note Progress Note: PULMONARY CONSULTATION DICTATED 07/12/18 IMP DYSPNEA LIKELY COPD/ASTHMA EXACERBATION,?PE MESOTHELIOMA CYNDIE HTN ANEMIA CHF PLAN INHALED BRONCHODILATORS MEDROL O2 V/Q MONITOR LYTES/RENAL FUNCTION ECHO DR CHAUHAN Problem List - Problems (1) COPD exacerbation Code(s): J44.1 - CHRONIC OBSTRUCTIVE PULMONARY DISEASE W (ACUTE) EXACERBATION (2) Shortness of breath Code(s): R06.02 - SHORTNESS OF BREATH (3) Asthma Code(s): J45.909 - UNSPECIFIED ASTHMA, UNCOMPLICATED (4) HTN (hypertension) Code(s): I10 - ESSENTIAL (PRIMARY) HYPERTENSION (5) CYNDIE (acute kidney injury) Code(s): N17.9 - ACUTE KIDNEY FAILURE, UNSPECIFIED (6) Mesothelioma (pleural) Code(s): C45.0 - MESOTHELIOMA OF PLEURA
--- NOTE | 2018-07-12 16:36 | CONS ---
DATE OF CONSULTATION: 07/12/2018 REFERRING PHYSICIAN: Jabari Lemon MD The patient is a 67-year-old black male with past medical history of asthma/COPD, hypertension, hyperlipidemia, CHF, nephrolithiasis, mesothelioma diagnosed in 2017, currently under the care of Dr. Newman, on chemotherapy, Alimta followed by Dagmar, admitted to [facility] with 3-day history of increasing shortness of breath and dyspnea on exertion. Patient states that since he was diagnosed with COPD approximately 10 years ago, he has been having intermittent shortness of breath with exertion the past few days though. He has been maintained on Symbicort in the past as well as Combivent, which was recently changed by his product engineering manager to Spiriva. Since the change, he has had more shortness of breath and dyspnea on exertion. Over the past couple of days, he developed severe dyspnea with minimal exertion, unable to bend down secondary to dyspnea. He presented to the emergency room with above. He denies any chest pain, nausea, vomiting, diaphoresis. He did have complaints of wheezing and the cough which is nonproductive and stated that he had a little nosebleed 2 days ago. Denies any hemoptysis. PAST MEDICAL HISTORY: Again, hypertension, hyperlipidemia, nephrolithiasis, mesothelioma diagnosed in 2017 by biopsy, COPD/asthma. 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 Current medications include Symbicort, heparin, Spiriva, DuoNeb, Coreg, Norvasc, Trilipix, Ecotrin, and folic acid. REVIEW OF SYSTEMS: Positive orthopnea, positive dyspnea. No chest pain, no palpitation. Positive cough. Positive wheezing. PHYSICAL EXAMINATION: General: The patient is a well-developed, well-nourished male, awake, alert, currently in no acute distress. Vital Signs: He is afebrile. Blood pressure 120/76. Respiratory rate 16. O2 saturation 100% on 4 L. HEENT: Normocephalic, atraumatic. Neck: Supple. Heart: Regular, S1, S2. Chest: Scattered bilateral wheezes. Abdomen: Soft. Bowel sounds are positive. Extremities: No cyanosis, edema. LABORATORY DATA: WBC 8.3, hemoglobin 10.6, hematocrit 30.9, platelet count 346,000. Blood gas 7.47, pCO2 of 41, pO2 of 104, bicarbonate 29, saturation 97 on 4 L. WBC 8.3, hemoglobin 10.6, hematocrit 30.9, platelet count 346,000. BUN 22, creatinine 1.8. Chest CT: Pericardial cyst, a small left pleural effusion, soft tissue nodularity in the left lower chest. No definitive infiltrates or effusion. IMPRESSION: 1. Dyspnea, most likely secondary to chronic obstructive pulmonary disease exacerbation. Cannot exclude pulmonary embolism. Patient at increased risk secondary to malignancy. 2. Mesothelioma. 3. Questionable history of congestive heart failure. 4. Hypertension. 5. Chronic kidney disease. PLAN: IV steroids, inhaled bronchodilators, supplemental O2, monitor peak flow, monitor renal function, V/Q scan, obtain echocardiogram. Thank you. I will follow closely with you. MARISELA CHAUHAN M.D. [id number]
[2018-07-12] MEDS ORDERED: methylPREDNISolone NA SUCC 40 MG/1 ML VIAL ONE ×2 (16:50→22:00)
[2018-07-12] MEDS: methylPREDNISolone NA SUCC 40 MG/1 ML VIAL IVPUSH SCH ×2 (17:15→22:17)
[2018-07-12] MEDS ORDERED: ALBUTEROL SO4 2.5/IPRATROPIUM 0.5 INH SOL 3 ML VIAL.NEB. NEB SCH (20:00)
--- NOTE | 2018-07-12 20:11 | CONSULT ---
Consult Consult Specialty:: Oncology Referred by:: Jabari Lemon Reason for Consultation:: Mesothelioma - History of Present Illness Chief Complaint: Dyspnea History of Present Illness: 67M with COPD, CHF, CKD, mesothelioma dx 2 years ago, s/p carbo/alimta with eventual POD, now on nivolumab since 12/2017 (c11 on 07/06/18), presented with worsening SOB x 2 weeks. On presentation, O2 sat was in low 90s on RA. Responded to 100% on NC. CXR without significant changes. CT chest without contrast (CKD) with new small-moderate non-hemorrhagic pericadial effusion. No obvious change in pleural nodularity. Being treated for CHF flare. Started on UFH empirically while waiting for V/Q scan. Denies fevers, cough, hemoptysis. C/ o increased salivation, especially at night, interrupting sleep. - Past Medical History Cardio/Vascular: Yes: CHF, Hyperlipdemia Pulmonary: Yes: Asthma - Smoking History Smoking history: Never smoked Have you smoked in the past 12 months: No If you are a former smoker, when did you quit?: LAST YEAR Home Medications - Allergies Allergies/Adverse Reactions: Allergies Allergy/AdvReac Type Severity Reaction Status Date / Time sulfur [From Sulfur-8] Allergy Mild Rash Verified 07/11/18 21:04 - Home Medications Home Medications: Ambulatory Orders Amlodipine Besylate [Norvasc -] 5 mg PO DAILY 08/11/17 Aspirin [Ecotrin] 81 mg PO DAILY 08/11/17 Carvedilol 12.5 mg PO DAILY 08/11/17 Fenofibrate [Lipofen] 160 mg PO DAILY 08/11/17 Folic Acid 1 mg PO DAILY 08/11/17 Furosemide [Lasix] 40 mg PO DAILY 08/11/17 Omeprazole Magnesium [Prilosec Otc] 20 mg PO DAILY 08/11/17 Triamcinolone 0.1% Cream [Aristocort 0.1% Cream -] 1 applic TP BID #1 applic Budesonide/Formeterol Fumarate [SYMBICORT 80/4.5mcg -] 2 inh IH DAILY 07/12/18 Ipratropium/Albuterol Sulfate [Combivent Respimat Inhal [place]] 4 gm IH BID 07/12 Umeclidinium [place] [Incruse Ellipta] 1 puff IH TID 07/12/18 Review of Systems - Review of Systems Constitutional: reports: No Symptoms Eyes: reports: No Symptoms Cardiovascular: reports: Shortness of Breath Respiratory: reports: SOB, SOB on Exertion Gastrointestinal: reports: No Symptoms Integumentary: reports: Other (Increased salivation) Physical Exam Vital Signs: Vital Signs Temperature 98.0 F 07/12/18 06:54 Pulse Rate 82 07/12/18 17:17 Respiratory Rate 18 07/12/18 17:17 Blood Pressure 121/81 07/12/18 17:17 O2 Sat by Pulse Oximetry (%) 96 07/12/18 17:17 Constitutional: Yes: Well Nourished, No Distress, Calm Eyes: Yes: Conjunctiva Clear Cardiovascular: Yes: Regular Rate and Rhythm Respiratory: Yes: Regular, CTA Bilaterally Gastrointestinal: Yes: WNL, Normal Bowel Sounds, Soft Extremities: Yes: WNL Edema: No Labs: CBC, BMP 07/11/18 22:06 07/11/18 22:06 Imaging - Results Chest X-ray: Report Reviewed Cat Scan: Report Reviewed Assessment/Plan 67M with COPD CHF, CKD, mesothelioma dx 2 years ago, s/p carbo/alimta with eventual POD, now on nivolumab since 12/2017 (c11 on 07/06/18), admitted with dyspnea and hypoxia to low 90s, thought to be 2/[address] chest without POD but small-moderate pericardial effusion noted. On empiric UFH while awaiting V/Q scan. Pericardial effusions have been reported with nivolumab. Agree with TTE for further evaluation. If significant or thought to contribute to symptoms, may need treatment with steroids.
[2018-07-12] MEDS: CARVEDILOL 12.5 MG TABLET (FP) PO SCH (22:17)
[2018-07-12] MEDS: BUDESONIDE/FORMETEROL FUMARATE 80/4.5 mcg INHALER IH SCH (22:22)
[2018-07-13] MEDS: HEPARIN NA (PORCINE) 5,000 UNITS/ML 1ML VIAL IVPUSH PRN ×2 (04:08→21:55)
[2018-07-13] MEDS ORDERED: methylPREDNISolone NA SUCC 40 MG/1 ML VIAL ONE ×2 (04:10→09:35)
[2018-07-13] MEDS ORDERED: HEPARIN NA (PORCINE) 5,000 UNITS/ML 1ML VIAL ONE (04:10)
[2018-07-13] MEDS ORDERED: HEPARIN INFUSION - 25,000 UNITS/500 ML INFUS.BAG IVPB ONE (04:10)
[2018-07-13] MEDS: methylPREDNISolone NA SUCC 40 MG/1 ML VIAL IVPUSH SCH ×4 (04:21→21:51)
[2018-07-13 05:56] LABS: BASO % 0.2 % (0-2.0); EOS % 0.1 % (0-4.5); HEMATOCRIT 31.3 % (35.4-49); LYMPH % 9.7 % (8-40); MCH 26.9 pg (25.7-33.7); MEAN PLT VOLUME 7.8 fl (7.5-11.1); MONO % 2.6 % (3.8-10.2); NEUT % 87.4 % (42.8-82.8); PLATELET COUNT 289 K/MM3 (134-434); RBC 3.73 M/mm3 (4.00-5.60); RDW 15.5 % (11.9-15.9); WHITE BLOOD COUNT 7.9 K/mm3 (4.0-10.0)
[2018-07-13 06:35] LABS: ALBUMIN 3.1 g/dl (3.4-5.0); ALK PHOS 66 U/L (45-117); ANION GAP 8 MMOL/L (8-16); BILIRUBIN,TOTAL 0.3 mg/dL (0.2-1); BLOOD UREA NITROGEN 24 mg/dL (7-18); CHLORIDE 101 mmol/L (98-107); CO2 29 mmol/L (21-32); CREATININE 1.5 mg/dL (0.55-1.3); GLUCOSE,RANDOM 194 mg/dL (74-106); MAGNESIUM 2.5 mg/dL (1.8-2.4); PHOSPHOROUS 3.5 mg/dL (2.5-4.9); SGOT/AST 12 U/L (15-37); SGPT/ALT 32 U/L (13-61); SODIUM 137 mmol/L (136-145); TOT PROT 7.4 g/dl (6.4-8.2)
[2018-07-13] MEDS: HEPARIN SOD,PORK IN 0.45% NACL 25,000 UNITS/500 ML INFUS.BAG IVPB SCH (06:56)
[2018-07-13] MEDS ORDERED: CARVEDILOL 12.5 MG TABLET (FP) ONE (09:54)
[2018-07-13] MEDS ORDERED: FOLIC ACID 1 MG TABLET (FP) ONE (09:54)
[2018-07-13] MEDS ORDERED: ASPIRIN COATED 81 MG TABLET.EC ONE (09:54)
[2018-07-13] MEDS ORDERED: amLODIPine BESYLATE 5 MG TABLET (FP) ONE (09:54)
[2018-07-13] MEDS: BUDESONIDE/FORMETEROL FUMARATE 80/4.5 mcg INHALER IH SCH ×2 (10:08→21:59)
[2018-07-13] MEDS: FOLIC ACID 1 MG TABLET (FP) PO SCH (10:08)
[2018-07-13] MEDS: CARVEDILOL 12.5 MG TABLET (FP) PO SCH ×2 (10:08→21:52)
[2018-07-13] MEDS: amLODIPine BESYLATE 5 MG TABLET (FP) PO SCH (10:08)
[2018-07-13] MEDS: ASPIRIN COATED 81 MG TABLET.EC PO SCH (10:08)
[2018-07-13] MEDS: TIOTROPIUM BROMIDE 2.5 MCG (SPIRIVA) RESPIMAT INHALER IH SCH (10:09)
--- NOTE | 2018-07-13 10:22 | CON.CARD ---
Consult Consult Specialty:: cardio Reason for Consultation:: sob - History of Present Illness Chief Complaint: sob History of Present Illness: 67 y/o M with worsening SOB for 2 weeks. states he had sob yrs ago, treated for 2d or so in [facility], "they found nothing. " saw dr coleman in my practice within past < 12 mo, stress test and echo showed "my heart was fine" and breathing pattern unrelated. has had bendopnea off and on over the years occasionally but worse in severity and occuring often of late. chronic sob since dx of mesothelioma 2 yrs prior has noticeably worsened. to me, he denies orthopnea or PND, but rarely has felt south of saliva up into mouth which wakes him from sleep--no acid features or sour taste. no cp abdomen has been more distended than usual. told it was gas/bloating, saw GI for treatment but med not helping CT chest in ER showed stable lung disease. small-mod pericardial effusion noted. echo pending BP has been 120s and above systolic. no signif tachycardia. requiring O2 via NC started empirically on UFH to cover for PE, V/Q pending PMH: asthma, HLD, CHF (unknown when last ECHO), nephrolithiasis, mesothelioma ( dx 2017) - Past Medical History Cardio/Vascular: Yes: CHF, Hyperlipdemia Pulmonary: Yes: Asthma - Smoking History Smoking history: Never smoked Have you smoked in the past 12 months: No If you are a former smoker, when did you quit?: LAST YEAR Home Medications - Allergies Allergies/Adverse Reactions: Allergies Allergy/AdvReac Type Severity Reaction Status Date / Time sulfur [From Sulfur-8] Allergy Mild Rash Verified 07/11/18 21:04 - Home Medications Home Medications: Ambulatory Orders Amlodipine Besylate [Norvasc -] 5 mg PO DAILY 08/11/17 Aspirin [Ecotrin] 81 mg PO DAILY 08/11/17 Carvedilol 12.5 mg PO DAILY 08/11/17 Fenofibrate [Lipofen] 160 mg PO DAILY 08/11/17 Folic Acid 1 mg PO DAILY 08/11/17 Furosemide [Lasix] 40 mg PO DAILY 08/11/17 Omeprazole Magnesium [Prilosec Otc] 20 mg PO DAILY 08/11/17 Triamcinolone 0.1% Cream [Aristocort 0.1% Cream -] 1 applic TP BID #1 applic Budesonide/Formeterol Fumarate [SYMBICORT 80/4.5mcg -] 2 inh IH DAILY 07/12/18 Ipratropium/Albuterol Sulfate [Combivent Respimat Inhal [place]] 4 gm IH BID 07/12 Umeclidinium [place] [Incruse Ellipta] 1 puff IH TID 07/12/18 Family Disease History - Family Disease History Family History: Denies (no known cmp) Review of Systems - Review of Systems Constitutional: denies: Chills, Fever Eyes: denies: Eye Pain HENT: denies: Nasal Congestion Neck: denies: Stiffness Cardiovascular: denies: Palpitations Respiratory: denies: Orthopnea, PND Gastrointestinal: denies: Diarrhea, Rectal Bleeding Genitourinary: denies: Burning, Hematuria Musculoskeletal: denies: Muscle Pain Integumentary: denies: Rash Neurological: denies: Numbness, Seizure, Syncope Endocrine: denies: Excessive Sweating Hematology/Lymphatic: denies: Excessive Bleeding Vital Signs: Vital Signs Temperature 98.1 F 07/13/18 06:22 Pulse Rate 72 07/13/18 06:22 Respiratory Rate 17 07/13/18 06:22 Blood Pressure 114/64 07/13/18 06:22 O2 Sat by Pulse Oximetry (%) 100 07/13/18 06:22 Constitutional: Yes: Well Nourished, No Distress Eyes: No: Sclera Icterus HENT: No: Nasal Congestion Neck: No: Decreased ROM Respiratory: Yes: CTA Bilaterally, Diminished (bases). No: Accessory Muscle Use , Rales, Wheezes Gastrointestinal: Yes: Normal Bowel Sounds, Distention. No: Hepatomegaly, Palpable Mass, Tenderness Cardiovascular: Yes: Regular Rate and Rhythm JVD: No Carotid Bruit: No PMI: Non-Displaced Heart Sounds: Yes: S1, S2. No: Gallop Murmur: No: Systolic Murmur, Diastolic Murmur Musculoskeletal: Yes: Other (No kyphosis) Extremities: No: Cool, Cyanosis Edema: No Peripheral Pulses: 2+ Left Carotid, 2+ Right Carotid, 2+ Left Doralis Pedis, 2+ Right Dorsalis Pedis Integumentary: No: Jaundice Neurological: Yes: Alert, Oriented (x3) Psychiatric: No: Agitated - Other Data Labs, Other Data: CBC, BMP 07/13/18 05:44 07/13/18 05:44 Laboratory Tests 07/11/18 07/12/18 07/13/18 22:06 00:50 05:44 WBC 7.9 Hgb 10.0 L Plt Count 289 ABG pH 7.47 H ABG pCO2 at Pt Temp 41.7 ABG pO2 at Pt Temp 104.0 H Oxygen Flow Rate 4.0lpm Sodium Potassium Carbon Dioxide BUN 22 H Creatinine 1.8 H AST ALT Troponin I < 0.02 B-Natriuretic Peptide 344.1 H 07/13/18 05:44 WBC Hgb Plt Count ABG pH ABG pCO2 at Pt Temp ABG pO2 at Pt Temp Oxygen Flow Rate Sodium 137 Potassium 4.0 Carbon Dioxide 29 BUN 24 H Creatinine 1.5 H AST 12 L ALT 32 Troponin I B-Natriuretic Peptide Assessment/Plan ECG: NSR, ? old AWMI (unchanged vs prior), diffuse NSST-T (mild)--slightly more pronounced vs prior CT chest: stable mesothelioma findings. no pulm edema. trace to small pleural eff (decr vs prior scan). [id number] pericardial effusion (no gross pericardial nodules/metastatic dz) SOB (including bendopnea), abd distension, pericardial effusion, mesothelioma, asthma: -? h/o CHF--no details available (home meds notable for carvedilol, lasix, amlodipine for bp)--recent w/u 2017 unrevealing per pt report -CT chest without signif pulm congestion. CT and sono without ascites. -BNP 300 (no priors) -appears euvolemic on exam -echo pending (peric effusion noted on CT) -no clinical tamponade with normal hemodynamics -f/u V/Q. ok to cont empiric UFH as long as pt shows no signs of tamponade developing. echo will be available shortly (disc'd with cardio dept) HTN: -bp controlled -cont home meds CYNDIE on CKD: -baseline creat 1.4 -initially up here, given gentle IVF in ER (? total amt)--renal fxn near baseline now
--- NOTE | 2018-07-13 11:01 | PN ---
Progress Note, Physician - Current Medication List Current Medications: Active Medications Albuterol Sulfate (Ventolin 0.083% Nebulizer Soln -) 1 amp NEB Q4H PRN PRN Reason: SHORT OF BREATH/WHEEZING Amlodipine Besylate (Norvasc -) 5 mg PO DAILY [facility] Last Admin: 07/13/18 10:08 Dose: 5 mg Aspirin (Ecotrin -) 81 mg PO DAILY [facility] Last Admin: 07/13/18 10:08 Dose: 81 mg Budesonide/Formoterol Fumarate (Symbicort 80/4.5mcg -) 2 puff IH BID [facility] Last Admin: 07/13/18 10:08 Dose: 2 puff Carvedilol (Coreg -) 12.5 mg PO BID [facility] Last Admin: 07/13/18 10:08 Dose: 12.5 mg Fenofibric Acid (Trilipix -) 135 mg PO DAILY [facility] Last Admin: 07/12/18 09:22 Dose: 135 mg Folic Acid (Folic Acid -) 1 mg PO DAILY [facility] Last Admin: 07/13/18 10:08 Dose: 1 mg Heparin Sodium (Porcine) (Heparin -) 1,000 unit IVPUSH PRN PRN PRN Reason: Heparin Last Admin: 07/13/18 04:08 Dose: 1,000 unit Heparin Sodium (Porcine) (Heparin -) 5,000 unit IVPUSH PRN PRN PRN Reason: Heparin Last Admin: 07/12/18 13:00 Dose: 5,000 unit HEPARIN SOD,PORK IN 0.45% NACL (Heparin-1/2ns 25,000 Units/500) 25,000 units in 500 mls @ 20 mls/hr IVPB TITR [facility]; Protocol Last Admin: 07/13/18 06:56 Dose: 1,350 unit/hr, 27 mls/hr Methylprednisolone Sodium Succinate (Solu-Medrol -) 40 mg IVPUSH Q6H-IV [facility] Last Admin: 07/13/18 09:52 Dose: 40 mg Nystatin (Nystatin Oral Suspension -) 500,000 units PO Q6HPO [facility] Tiotropium [place] (Spiriva Respimat) 2 puff IH DAILY [facility] Last Admin: 07/13/18 10:09 Dose: Not Given - Objective Vital Signs: Vital Signs Temperature 36.7 C 07/13/18 06:22 Pulse Rate 72 07/13/18 06:22 Respiratory Rate 17 07/13/18 06:22 Blood Pressure 114/64 07/13/18 06:22 O2 Sat by Pulse Oximetry (%) 100 07/13/18 06:22 Labs: CBC, BMP 07/13/18 05:44 07/13/18 05:44 Problem List - Problems (1) Shortness of breath Code(s): R06.02 - SHORTNESS OF BREATH (2) CYNDIE (acute kidney injury) Code(s): N17.9 - ACUTE KIDNEY FAILURE, UNSPECIFIED (3) COPD exacerbation Code(s): J44.1 - CHRONIC OBSTRUCTIVE PULMONARY DISEASE W (ACUTE) EXACERBATION (4) HTN (hypertension) Code(s): I10 - ESSENTIAL (PRIMARY) HYPERTENSION (5) Mesothelioma (pleural) Code(s): C45.0 - MESOTHELIOMA OF PLEURA Assessment/Plan (1) Shortness of breath Assessment/Plan: -patient says his breathing is close to baseline -suspect this is more COPD exacerbation than other cause (CHF, PE) -however patient is at risk -case d/w pulmonary, V/Q scan ordered (Dr Moore will call radiology to approve) -continue heparin gtt at this time -ECHO ordered for both possible history of CHF and pericardial effusion Code(s): R06.02 - SHORTNESS OF BREATH (2) CYNDIE (acute kidney injury) Assessment/Plan: -improving off of lasix -continue to monitor Code(s): N17.9 - ACUTE KIDNEY FAILURE, UNSPECIFIED (3) COPD exacerbation Assessment/Plan: -continue solumedrol -continue spiriva -continue symbicort -improving Code(s): J44.1 - CHRONIC OBSTRUCTIVE PULMONARY DISEASE W (ACUTE) EXACERBATION (4) HTN (hypertension) Assessment/Plan: -well controlled Code(s): I10 - ESSENTIAL (PRIMARY) HYPERTENSION (5) Mesothelioma (pleural) Assessment/Plan: -oncology following and note reviewed Code(s): C45.0 - MESOTHELIOMA OF PLEURA (6) Thrush -nystatin swish and swallow
[2018-07-13] MEDS: FENOFIBRIC ACID 135 MG CAP PO SCH (11:19)
--- NOTE | 2018-07-13 13:59 | ECHO ---
Name: TY ALLEN Exam:Adult Echocardiogram Study Date: 07/13/2018 12:47 PM Age: 67 yrs Reason For Study: EVAL STRAIN Height: 68 in Weight: 206 lb BSA: 2.1 m2 MMode/2D Measurements & Calculations IVSd: 1.0 cm Ao root diam: 3.5 cm LVIDd: 5.7 cm LA dimension: 4.0 cm LVIDs: 3.6 cm ACS: 1.8 cm LVPWd: 1.1 cm IVSs: 1.4 cm LVPWs: 1.6 cm EDV(Teich): 162.7 ml ESV(Teich): 52.8 ml Doppler Measurements & Calculations MV E max luis angel: 78.5 cm/sec Ao V2 max: 131.4 cm/sec MV A max luis angel: 48.1 cm/sec Ao max P.9 mmHg MV E/A: 1.6 TR max luis angel: 210.9 cm/sec PI end-d luis angel: 108.6 cm/sec TR max P.8 mmHg Med Peak E' Luis Angel: 7.0 cm/sec Med E/e': 11.2 Lat Peak E' Luis Angel: 5.8 cm/sec Lat E/e': 13.6 Procedure A complete two-dimensional transthoracic echocardiogram was performed (2D, M-mode, Doppler and color flow Doppler). Technically limited study. Left Ventricle The left ventricle is normal in size. Left ventricular systolic function is normal. Ejection Fraction = 60- 65%. No regional wall motion abnormalities noted. Right Ventricle The right ventricle is normal size. The right ventricular systolic function is mildly reduced. Atria Borderline left atrial enlargement. Right atrial size is normal. Mitral Valve There is mild mitral annular calcification. There is mild mitral regurgitation. Tricuspid Valve The tricuspid valve is normal in structure and function. There is mild tricuspid regurgitation. Right ventricular systolic pressure is normal. Aortic Valve The aortic valve is normal in structure and function. No aortic regurgitation is present. Pulmonic Valve The pulmonic valve is not well visualized. Mild pulmonic valvular regurgitation. Great Vessels The aortic root is normal size. Pericardium/Pleura Small pericardial effusion (<1cm). There are no echocardiographic indications of cardiac tamponade. Interpretation Summary Technically limited study The left ventricle is normal in size. Left ventricular systolic function is normal. No regional wall motion abnormalities noted. Ejection Fraction = 60-65%. The right ventricular systolic function is mildly reduced. Borderline left atrial enlargement. Right atrial size is normal. There is mild mitral annular calcification. There is mild mitral regurgitation. There is mild tricuspid regurgitation. Right ventricular systolic pressure is normal. Mild pulmonic valvular regurgitation. Small pericardial effusion (<1cm) There are no echocardiographic indications of cardiac tamponade. Previous study is not available for comparison Willy Hoffman MD 07/13/2018 01:58 PM
--- NOTE | 2018-07-13 15:17 | PN ---
Progress Note (short form) - Note Progress Note: PULMONARY Breathing better today. Feels better with oxygen. Still with nonproductive cough. No chest pain. No fevers or chills. Vital Signs Period Temp Pulse Resp BP Sys/Clements Pulse Ox Last 24 Hr 98.1 F 72-88 17-19 114-127/64-81 96-100 Gen: mildly tachypneic with speaking Heart: RRR Lung: distant breath sounds Abd: soft, nontender Ext: no edema CBC, BMP 07/13/18 05:44 07/13/18 05:44 Active Medications Albuterol Sulfate (Ventolin 0.083% Nebulizer Soln -) 1 amp NEB Q4H PRN PRN Reason: SHORT OF BREATH/WHEEZING Amlodipine Besylate (Norvasc -) 5 mg PO DAILY [facility] Last Admin: 07/13/18 10:08 Dose: 5 mg Aspirin (Ecotrin -) 81 mg PO DAILY [facility] Last Admin: 07/13/18 10:08 Dose: 81 mg Budesonide/Formoterol Fumarate (Symbicort 80/4.5mcg -) 2 puff IH BID [facility] Last Admin: 07/13/18 10:08 Dose: 2 puff Carvedilol (Coreg -) 12.5 mg PO BID [facility] Last Admin: 07/13/18 10:08 Dose: 12.5 mg Fenofibric Acid (Trilipix -) 135 mg PO DAILY [facility] Last Admin: 07/13/18 11:19 Dose: 135 mg Folic Acid (Folic Acid -) 1 mg PO DAILY [facility] Last Admin: 07/13/18 10:08 Dose: 1 mg Heparin Sodium (Porcine) (Heparin -) 1,000 unit IVPUSH PRN PRN PRN Reason: Heparin Last Admin: 07/13/18 04:08 Dose: 1,000 unit Heparin Sodium (Porcine) (Heparin -) 5,000 unit IVPUSH PRN PRN PRN Reason: Heparin Last Admin: 07/12/18 13:00 Dose: 5,000 unit HEPARIN SOD,P[place] IN 0.45% NACL (Heparin-1/2ns 25,000 Units/500) 25,000 units in 500 mls @ 20 mls/hr IVPB TITR [facility]; Protocol Last Titration: 07/13/18 12:05 Dose: 1,200 unit/hr, 24 mls/hr Methylprednisolone Sodium Succinate (Solu-Medrol -) 40 mg IVPUSH Q6H-IV [facility] Last Admin: 07/13/18 09:52 Dose: 40 mg Nystatin (Nystatin Oral Suspension -) 500,000 units PO Q6HPO [facility] Tiotropium [place] (Spiriva Respimat) 2 puff IH DAILY [facility] Last Admin: 07/13/18 10:09 Dose: Not Given A/P Acute COPD Exacerbation r/o PE Mesothelioma Acute Kidney Injury HTN - continue medrol - inhaled bronchodilators - on empric anticoagulation - for V/Q scan - O2 to keep SPo2 >90%
[2018-07-13] MEDS: NYSTATIN 500,000 UNITS/5 ML SUSPENSION PO SCH ×2 (16:00→18:03)
[2018-07-13] MEDS ORDERED: PT OWN MED DRAWER 7, Y5N ONE ×2 (17:26→21:37)
--- NOTE | 2018-07-13 20:54 | PN ---
Progress Note (short form) - Note Progress Note: patient seen and examined feels better Last Vital Signs Temp Pulse Resp BP Pulse Ox 97.6 F 90 18 136/85 98 07/13/18 16:55 07/13/18 16:55 07/13/18 16:55 07/13/18 16:55 07/13/18 21:00 Cor: RSR, No murmurs, No gallops Lungs: Clear to P&A Abd: Soft, Normal bowel sounds, No organomegaly Ext:No significant edema Labs/meds reviewed ' a/p 67 y/o patient with mesothelioma, on nivolumab, last dose 07/08, comes in with sob ? pnemonitis ? copd exacerbation on steroids abdominal distention -- benogn exam. nl bowelmovements consult gi
[2018-07-14] MEDS: NYSTATIN 500,000 UNITS/5 ML SUSPENSION PO SCH ×4 (01:41→18:30)
[2018-07-14] MEDS: methylPREDNISolone NA SUCC 40 MG/1 ML VIAL IVPUSH SCH ×4 (03:46→21:05)
[2018-07-14] MEDS: ALBUTEROL SO4 0.083% IH SOL 2.5 MG/3 ML VIAL.NEB. NEB PRN ×2 (04:31→20:52)
[2018-07-14 06:16] LABS: BASO % 0.3 % (0-2.0); HEMATOCRIT 31.7 % (35.4-49); HEMOGLOBIN 9.8 GM/dL (11.7-16.9); MCH 26.3 pg (25.7-33.7); MCHC 30.9 g/dl (32.0-35.9); MEAN CELL VOLUME 85.2 fl (80-96); MEAN PLT VOLUME 7.8 fl (7.5-11.1); NEUT % 92.7 % (42.8-82.8); PLATELET COUNT 299 K/MM3 (134-434); RBC 3.72 M/mm3 (4.00-5.60); RDW 15.7 % (11.9-15.9); WHITE BLOOD COUNT 19.7 K/mm3 (4.0-10.0)
[2018-07-14 06:43] LABS: ANION GAP 8 MMOL/L (8-16); BLOOD UREA NITROGEN 29 mg/dL (7-18); CALCIUM 8.8 mg/dL (8.5-10.1); CHLORIDE 103 mmol/L (98-107); CO2 27 mmol/L (21-32); CREATININE 1.3 mg/dL (0.55-1.3); GLUCOSE,RANDOM 235 mg/dL (74-106); MAGNESIUM 2.4 mg/dL (1.8-2.4); POTASSIUM 4.1 mmol/L (3.5-5.1); SODIUM 138 mmol/L (136-145)
--- NOTE | 2018-07-14 09:27 | PN ---
Progress Note (short form) - Note Progress Note: Consult Consult Specialty:: cardio Reason for Consultation:: sob - History of Present Illness Chief Complaint: sob History of Present Illness: still short of breath. no chest pain, palps, dizziness, lightheadedness. feels palps when walking Current Medications Albuterol Sulfate (Ventolin 0.083% Nebulizer Soln -) 1 amp NEB Q4H PRN PRN Reason: SHORT OF BREATH/WHEEZING Last Admin: 07/14/18 04:31 Dose: 1 amp Amlodipine Besylate (Norvasc -) 5 mg PO DAILY [facility] Last Admin: 07/14/18 10:17 Dose: 5 mg Aspirin (Ecotrin -) 81 mg PO DAILY [facility] Last Admin: 07/14/18 10:17 Dose: 81 mg Budesonide/Formoterol Fumarate (Symbicort 80/4.5mcg -) 2 puff IH BID [facility] Last Admin: 07/14/18 10:17 Dose: 2 puff Carvedilol (Coreg -) 12.5 mg PO BID [facility] Last Admin: 07/14/18 10:17 Dose: 12.5 mg Fenofibric Acid (Trilipix -) 135 mg PO DAILY [facility] Last Admin: 07/14/18 10:18 Dose: 135 mg Folic Acid (Folic Acid -) 1 mg PO DAILY [facility] Last Admin: 07/14/18 10:17 Dose: 1 mg Heparin Sodium (Porcine) (Heparin -) 1,000 unit IVPUSH PRN PRN PRN Reason: Heparin Last Admin: 07/13/18 04:08 Dose: 1,000 unit Heparin Sodium (Porcine) (Heparin -) 5,000 unit IVPUSH PRN PRN PRN Reason: Heparin Last Admin: 07/13/18 21:55 Dose: 5,000 unit HEPARIN SOD,PORK IN 0.45% NACL (Heparin-1/2ns 25,000 Units/500) 25,000 units in 500 mls @ 20 mls/hr IVPB TITR JANINE; Protocol Last Admin: 07/14/18 10:16 Dose: 1,350 unit/hr, 27 mls/hr Methylprednisolone Sodium Succinate (Solu-Medrol -) 40 mg IVPUSH Q6H-IV [facility] Last Admin: 07/14/18 10:17 Dose: 40 mg Nystatin (Nystatin Oral Suspension -) 500,000 units PO Q6HPO [facility] Last Admin: 07/14/18 05:43 Dose: 500,000 units Tiotropium [place] (Spiriva Respimat) 2 puff IH DAILY [facility] Last Admin: 07/13/18 10:09 Dose: Not Given Vital Signs: Vital Signs Period Temp Pulse Resp BP Sys/Clements Pulse Ox Last 24 Hr 97.4 F-97.9 F 80-93 18-20 107-136/56-85 95-98 Constitutional: Yes: Well Nourished, No Distress Eyes: No: Sclera Icterus HENT: No: Nasal Congestion Neck: No: Decreased ROM Respiratory: Yes: CTA Bilaterally, Diminished (bases). No: Accessory Muscle Use , Rales, Wheezes Gastrointestinal: Yes: Normal Bowel Sounds, Distention. No: Hepatomegaly, Palpable Mass, Tenderness Cardiovascular: Yes: Regular Rate and Rhythm JVD: No Carotid Bruit: No PMI: Non-Displaced Heart Sounds: Yes: S1, S2. No: Gallop Murmur: No: Systolic Murmur, Diastolic Murmur Musculoskeletal: Yes: Other (No kyphosis) Extremities: No: Cool, Cyanosis Edema: No Peripheral Pulses: 2+ Left Carotid, 2+ Right Carotid, 2+ Left Doralis Pedis, 2+ Right Dorsalis Pedis Integumentary: No: Jaundice Neurological: Yes: Alert, Oriented (x3) Psychiatric: No: Agitated Assessment/Plan ECG: NSR, ? old AWMI (unchanged vs prior), diffuse NSST-T (mild)--slightly more pronounced vs prior echo in 10/15 Dr. Meyer: normal LV, no pericardial effusion (no other signif abnormality) echo 06/2018 nl LV function, mildly reduced RV function, borderline LA enlargement, mild MR, mild TR, RVSP nl, small pericardial effusion <1 cm, no echo indication of tamponade CT chest: stable mesothelioma findings. no pulm edema. trace to small pleural eff (decr vs prior scan). [id number] pericardial effusion (no gross pericardial nodules/metastatic dz) tele: sinus, 19 beat run of NSVT. overnight in afib with occasional RVR 120s- 130s, this morning rate controlled SOB (including bendopnea), abd distension, pericardial effusion, mesothelioma, asthma: -? h/o CHF--no details available (home meds notable for carvedilol, lasix, amlodipine for bp)--recent w/u 2018 unrevealing per pt report -CT chest without signif pulm congestion. CT and sono without ascites. -BNP 300 (no priors) -appears euvolemic on exam -echo shows small pericardial effusion with no tamponade -no clinical tamponade with normal hemodynamics - plan for CTA scan vs V/Q, pulm following, to rule out PE - patient with afib and mildly reduced RV function on echo - continue heparin gtt for now afib - patient endorses history of "irregular heartbeat" 8-10 years go while being treated for mesothelioma, was started on aspirin 81 mg daily at that time - now with afib starting on tele overnight, occasionally feeling palps - continue heparin gtt, rule out PE as above - continue carvedilol NSVT - episode noted on tele - maintain K>4.0, Mg >2.0 - nl LV function HTN: -bp controlled -cont home meds CYNDIE on CKD: -baseline creat 1.4 -initially up here, given gentle IVF in ER (? total amt)--renal fxn near baseline now
[2018-07-14] MEDS: HEPARIN SOD,PORK IN 0.45% NACL 25,000 UNITS/500 ML INFUS.BAG IVPB SCH (10:16)
[2018-07-14] MEDS: FOLIC ACID 1 MG TABLET (FP) PO SCH (10:17)
[2018-07-14] MEDS: BUDESONIDE/FORMETEROL FUMARATE 80/4.5 mcg INHALER IH SCH ×2 (10:17→21:05)
[2018-07-14] MEDS: ASPIRIN COATED 81 MG TABLET.EC PO SCH (10:17)
[2018-07-14] MEDS: amLODIPine BESYLATE 5 MG TABLET (FP) PO SCH (10:17)
[2018-07-14] MEDS: CARVEDILOL 12.5 MG TABLET (FP) PO SCH ×2 (10:17→21:05)
[2018-07-14] MEDS: FENOFIBRIC ACID 135 MG CAP PO SCH (10:18)
[2018-07-14 10:47] LABS: ANISOCYTOSIS 0; MACROCYTOSIS 0; PLATELET ESTIMATE NORMAL
[2018-07-14] MEDS: TIOTROPIUM BROMIDE 2.5 MCG (SPIRIVA) RESPIMAT INHALER IH SCH (12:08)
--- NOTE | 2018-07-14 12:53 | CON.GI ---
Consult Consult Specialty:: GI Referred by:: Dr. Stover Reason for Consultation:: Abdominal distention - History of Present Illness Chief Complaint: Shortness of breath History of Present Illness: 67 M admitted for evaluation of progressive SOB. Asked to evaluate abdominal distention. I have been evaluating his as an outpatient for dyspepsia. Please refer to abdominal MRI report from 06/22/18, CT A/P report from 11/22/17, CT A/P report from 05/31/[address] A/P report from 01/25/17. He is on heprain drip until PE is excluded. He denies abdominal pain and is having regular formed bowel movements. There was no evidence of ascites noted on US from . He had EGD and Colonoscopy 06/15 at [facility] revealing fair prep and sigmoid diverticulosis. EGD revealed a hiatal hernia and a polyp. He underwent virtual colonoscopy 09/16/17 at [facility] that revealed poor prep with no obvious mass lesion. He was noted to be guaiac negative during his initial office visit with md 06/10/18. 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 Place of : Other ([place]) History of Recent Travel: No Home Medications - Allergies Allergies/Adverse Reactions: Allergies Allergy/AdvReac Type Severity Reaction Status Date / Time sulfur [From Sulfur-8] Allergy Mild Rash Verified 07/11/18 21:04 - Home Medications Home Medications: Ambulatory Orders Amlodipine Besylate [Norvasc -] 5 mg PO DAILY 08/11/17 Aspirin [Ecotrin] 81 mg PO DAILY 08/11/17 Carvedilol 12.5 mg PO DAILY 08/11/17 Fenofibrate [Lipofen] 160 mg PO DAILY 08/11/17 Folic Acid 1 mg PO DAILY 08/11/17 Furosemide [Lasix] 40 mg PO BID 08/11/17 Omeprazole Magnesium [Prilosec Otc] 20 mg PO DAILY 08/11/17 Triamcinolone 0.1% Cream [Aristocort 0.1% Cream -] 1 applic TP BID #1 applic Budesonide/Formeterol Fumarate [SYMBICORT 80/4.5mcg -] 2 inh IH DAILY 07/12/18 Ipratropium/Albuterol Sulfate [Combivent Respimat Inhal [place]] 4 gm IH BID 07/12 Umeclidinium [place] [Incruse Ellipta] 1 puff IH TID 07/12/18 Lactobacillus Acidophilus [Bacid -] 1 each PO DAILY 07/13/18 Psyllium Husk (with Sugar) [Metamucil Packet] 3.4 gm PO DAILY 07/13/18 Family Disease History - Family Disease History Family Disease History: Other: Father (Unknown medical conditions), Mother ( Alive, CVA), Brother (1, HTN), Sister (1, HTN), Son (2, healthy), Daughter (1, healthy) Other Family History: No family history of colorectal cancer or other GI malignancy Review of Systems - Review of Systems Constitutional: denies: Fever Cardiovascular: denies: Chest Pain Respiratory: reports: SOB, SOB on Exertion Gastrointestinal: denies: Abdominal Pain, Bloating, Constipation, Diarrhea, Melena, Nausea, Rectal Bleeding, Vomiting, Vomiting Blood Physical Exam-GI Vital Signs: Vital Signs Temperature 97.8 F 07/14/18 09:00 Pulse Rate 93 H 07/14/18 09:00 Respiratory Rate 18 07/14/18 09:00 Blood Pressure 107/56 L 07/14/18 09:00 O2 Sat by Pulse Oximetry (%) 98 07/13/18 21:00 Constitutional: Yes: Calm Eyes: No: Sclera Icterus Cardiovascular: Yes: Regular Rate and Rhythm Respiratory: Yes: CTA Bilaterally Gastrointestinal Inspection: No: Distention ...Auscultate: Yes: Normoactive Bowel Sounds ...Palpate: Yes: Soft. No: Hepatomegaly, Splenomegaly, Tenderness ...Percussion: No: Tympanitic Edema: Yes Edema: LLE: Trace, RLE: Trace Neurological: Yes: Alert, Oriented Labs: CBC, BMP 07/14/18 06:00 07/14/18 06:00 Imaging - Results Ultrasound: Report Reviewed Problem List - Problems (1) Shortness of breath Assessment/Plan: No GI interventions required at this time SOB being evaluated by primary team, pulmonary and cardiology Recall as needed Code(s): R06.02 - SHORTNESS OF BREATH
--- NOTE | 2018-07-14 13:20 | PN ---
Progress Note, Physician History of Present Illness: PULMONARY ALERT,VERY DYSPNEIC WITH MIN EXERTION,STARTED ON HEPARIN SECONDARY TO AFIB - Current Medication List Current Medications: Active Medications Albuterol Sulfate (Ventolin 0.083% Nebulizer Soln -) 1 amp NEB Q4H PRN PRN Reason: SHORT OF BREATH/WHEEZING Last Admin: 07/14/18 04:31 Dose: 1 amp Amlodipine Besylate (Norvasc -) 5 mg PO DAILY [facility] Last Admin: 07/14/18 10:17 Dose: 5 mg Aspirin (Ecotrin -) 81 mg PO DAILY [facility] Last Admin: 07/14/18 10:17 Dose: 81 mg Budesonide/Formoterol Fumarate (Symbicort 80/4.5mcg -) 2 puff IH BID [facility] Last Admin: 07/14/18 10:17 Dose: 2 puff Carvedilol (Coreg -) 12.5 mg PO BID [facility] Last Admin: 07/14/18 10:17 Dose: 12.5 mg Fenofibric Acid (Trilipix -) 135 mg PO DAILY [facility] Last Admin: 07/14/18 10:18 Dose: 135 mg Folic Acid (Folic Acid -) 1 mg PO DAILY [facility] Last Admin: 07/14/18 10:17 Dose: 1 mg Heparin Sodium (Porcine) (Heparin -) 1,000 unit IVPUSH PRN PRN PRN Reason: Heparin Last Admin: 07/13/18 04:08 Dose: 1,000 unit Heparin Sodium (Porcine) (Heparin -) 5,000 unit IVPUSH PRN PRN PRN Reason: Heparin Last Admin: 07/13/18 21:55 Dose: 5,000 unit HEPARIN SOD,PORK IN 0.45% NACL (Heparin-1/2ns 25,000 Units/500) 25,000 units in 500 mls @ 20 mls/hr IVPB TITR JANINE; Protocol Last Admin: 07/14/18 10:16 Dose: 1,350 unit/hr, 27 mls/hr Methylprednisolone Sodium Succinate (Solu-Medrol -) 40 mg IVPUSH Q6H-IV JANINE Last Admin: 07/14/18 10:17 Dose: 40 mg Nystatin (Nystatin Oral Suspension -) 500,000 units PO Q6HPO [facility] Last Admin: 07/14/18 05:43 Dose: 500,000 units Tiotropium [place] (Spiriva Respimat) 2 puff IH DAILY JANINE Last Admin: 07/13/18 10:09 Dose: Not Given - Objective Vital Signs: Vital Signs Temperature 97.8 F 07/14/18 09:00 Pulse Rate 93 H 07/14/18 09:00 Respiratory Rate 18 07/14/18 09:00 Blood Pressure 107/56 L 07/14/18 09:00 O2 Sat by Pulse Oximetry (%) 98 07/13/18 21:00 Constitutional: Yes: Well Nourished, Calm, Other (DYSPNEIC) Eyes: Yes: WNL HENT: Yes: WNL Neck: Yes: WNL Cardiovascular: Yes: Pulse Irregular, S1, S2 Respiratory: Yes: Diminished Gastrointestinal: Yes: Normal Bowel Sounds, Soft Extremities: Yes: WNL Edema: No Labs: CBC, BMP 07/14/18 06:00 07/14/18 06:00 Problem List - Problems (1) COPD exacerbation Code(s): J44.1 - CHRONIC OBSTRUCTIVE PULMONARY DISEASE W (ACUTE) EXACERBATION (2) Shortness of breath Code(s): R06.02 - SHORTNESS OF BREATH (3) Asthma Code(s): J45.909 - UNSPECIFIED ASTHMA, UNCOMPLICATED (4) HTN (hypertension) Code(s): I10 - ESSENTIAL (PRIMARY) HYPERTENSION (5) CYNDIE (acute kidney injury) Code(s): N17.9 - ACUTE KIDNEY FAILURE, UNSPECIFIED (6) Mesothelioma (pleural) Code(s): C45.0 - MESOTHELIOMA OF PLEURA Assessment/Plan IMP DYSPNEA LIKELY COPD/ASTHMA EXACERBATION,?PE MESOTHELIOMA CYNDIE HTN ANEMIA CHF AFIB PLAN INHALED BRONCHODILATORS MEDROL O2 CHEST CTA MONITOR LYTES/RENAL FUNCTION AC DR CHAUHAN Problem List - Problems (1) COPD exacerbation Code(s): J44.1 - CHRONIC OBSTRUCTIVE PULMONARY DISEASE W (ACUTE) EXACERBATION (2) Shortness of breath Code(s): R06.02 - SHORTNESS OF BREATH (3) Asthma Code(s): J45.909 - UNSPECIFIED ASTHMA, UNCOMPLICATED (4) HTN (hypertension) Code(s): I10 - ESSENTIAL (PRIMARY) HYPERTENSION (5) CYNDIE (acute kidney injury) Code(s): N17.9 - ACUTE KIDNEY FAILURE, UNSPECIFIED (6) Mesothelioma (pleural) Code(s): C45.0 - MESOTHELIOMA OF PLEURA
--- NOTE | 2018-07-14 15:25 | PN ---
Teaching Attending Note Name of Resident: Lesia Gandara ATTENDING PHYSICIAN STATEMENT I saw and evaluated the patient. I reviewed the resident's note and discussed the case with the resident. I agree with the resident's findings and plan as documented. SUBJECTIVE: Mr Fitch still has shortness of breath. Denies cp or n/v. OBJECTIVE: Last Vital Signs Temp Pulse Resp BP Pulse Ox 36.6 C 93 H 18 107/56 L 98 07/14/18 09:00 07/14/18 09:00 07/14/18 09:00 07/14/18 09:00 07/14/18 09:00 Gen: nad Pulm: diffuse rales throughout all lung jaimes CV: irreg irreg but rate controlled w/o m/r/g Abd: +bs, s/nt, distended but unchanged Ext: no c/c/e CBC, BMP 07/14/18 06:00 07/14/18 06:00 ASSESSMENT AND PLAN: (1) Shortness of breath Assessment/Plan: -case d/w Dr Moore -CT scan with PE protocol negative -can stop heparin gtt secondary to this -treat COPD exacerbation Code(s): R06.02 - SHORTNESS OF BREATH (2) CYNDIE (acute kidney injury) Assessment/Plan: -improving off of lasix -continue to monitor Code(s): N17.9 - ACUTE KIDNEY FAILURE, UNSPECIFIED (3) COPD exacerbation Assessment/Plan: -continue solumedrol -continue spiriva -continue symbicort -improving Code(s): J44.1 - CHRONIC OBSTRUCTIVE PULMONARY DISEASE W (ACUTE) EXACERBATION (4) HTN (hypertension) Assessment/Plan: -well controlled Code(s): I10 - ESSENTIAL (PRIMARY) HYPERTENSION (5) Mesothelioma (pleural) Assessment/Plan: -oncology following and note reviewed Code(s): C45.0 - MESOTHELIOMA OF PLEURA (6) Thrush -nystatin swish and swallow (7) Atrial fibrillation -cardiology following -will start eliquis -will d/w cardiology as well in case want another agent Problem List - Problems (1) Shortness of breath Code(s): R06.02 - SHORTNESS OF BREATH (2) CYNDIE (acute kidney injury) Code(s): N17.9 - ACUTE KIDNEY FAILURE, UNSPECIFIED (3) COPD exacerbation Code(s): J44.1 - CHRONIC OBSTRUCTIVE PULMONARY DISEASE W (ACUTE) EXACERBATION (4) HTN (hypertension) Code(s): I10 - ESSENTIAL (PRIMARY) HYPERTENSION (5) Mesothelioma (pleural) Code(s): C45.0 - MESOTHELIOMA OF PLEURA
--- NOTE | 2018-07-14 17:20 | PN ---
Physical Exam: SUBJECTIVE: Patient seen and examined by me at bedside Patient reports persistent shortness of breath. States he walked to the bathroom and still had shortness of breath Otherwise, denies any fever, chills, nausea, vomiting, abdominal pain, chest pain, palpitations, headaches, acute vision change. OBJECTIVE: Vital Signs Period Temp Pulse Resp BP Sys/Clements Pulse Ox Last 24 Hr 97.4 F-98.3 F 80-98 18-20 107-126/56-81 98-98 GENERAL: The patient is awake, alert, and fully oriented, in no acute distress. EYES: Sclera anicteric, conjunctiva clear. No ptosis. ENT: Moist mucous membranes. LUNGS: Bilateral rales throughout lung bases bilaterally. No accessory muscle use HEART: Irregularly irregular rhythm with regular rate. No murmurs appreciated ABDOMEN: Soft, nontender, distended, normoactive bowel sounds EXTREMITIES: No edema. Laboratory Results - last 24 hr 07/14/18 07/14/18 06:00 06:00 WBC 19.7 H RBC 3.72 L Hgb 9.8 L Hct 31.7 L MCV 85.2 MCH 26.3 MCHC 30.9 L RDW 15.7 Plt Count 299 MPV 7.8 Absolute Neuts (auto) 18.3 H Neutrophils % 92.7 H Neutrophils % (Manual) 89.3 H D Band Neutrophils % 0.0 Lymphocytes % 3.0 L D Lymphocytes % (Manual) 5.8 L D Monocytes % 4.0 Monocytes % (Manual) 5 D Eosinophils % 0.0 D Eosinophils % (Manual) 0.0 D Basophils % 0.3 Basophils % (Manual) 0.0 Myelocytes % (Man) 0 Promyelocytes % (Man) 0 Blast Cells % (Manual) 0 Nucleated RBC % 0 Metamyelocytes 0 Hypochromia 1+ Platelet Estimate Normal Polychromasia 0 Poikilocytosis 1+ Anisocytosis 0 Microcytosis 0 Macrocytosis 0 PTT (Actin FS) Sodium 138 Potassium 4.1 Chloride 103 Carbon Dioxide 27 Anion Gap 8 BUN 29 H Creatinine 1.3 Creat Clearance w eGFR 55.06 Random Glucose 235 H Calcium 8.8 Phosphorus 3.0 Magnesium 2.4 Active Medications Generic Name Dose Route Start Last Admin Trade Name Freq PRN Reason Stop Dose Admin Albuterol Sulfate 1 amp 07/12/18 15:47 07/14/18 04:31 Ventolin 0.083% Nebulizer Soln - NEB 1 amp Q4H PRN Administration SHORT OF BREATH/WHEEZING Amlodipine Besylate 5 mg 07/12/18 10:00 07/14/18 10:17 Norvasc - PO 5 mg DAILY JANINE Administration Apixaban 5 mg 07/14/18 22:00 Eliquis - PO BID JANINE Aspirin 81 mg 07/12/18 10:00 07/14/18 10:17 Ecotrin - PO 81 mg DAILY JANINE Administration Budesonide/Formoterol Fumarate 2 puff 07/12/18 22:00 07/14/18 10:17 Symbicort 80/4.5mcg - IH 2 puff BID JANINE Administration Carvedilol 12.5 mg 07/12/18 22:00 07/14/18 10:17 Coreg - PO 12.5 mg BID JANINE Administration Fenofibric Acid 135 mg 07/12/18 10:00 07/14/18 10:18 Trilipix - PO 135 mg DAILY JANINE Administration Folic Acid 1 mg 07/12/18 10:00 07/14/18 10:17 Folic Acid - PO 1 mg DAILY JANINE Administration Methylprednisolone Sodium Succinate 40 mg 07/12/18 16:00 07/14/18 16:08 Solu-Medrol - IVPUSH 40 mg Q6H-IV JANINE Administration Nystatin 500,000 units 07/13/18 12:00 07/14/18 16:08 Nystatin Oral Suspension - PO 500,000 units Q6HPO JANINE Administration Tiotropium [place] 2 puff 07/12/18 11:00 07/14/18 12:08 Spiriva Respimat IH 2 puff DAILY JANINE Administration ASSESSMENT AND PLAN: Patient is a 67 year old male with a significant PMHx of Mesothelioma and COPD who presented for severe shortness of breath and admitted for further monitoring and management. Shortness of breath -Likely secondary to Acute COPD exacerbation w/ possible worsening Mesothelioma -CTA done and negative for PE. Heparin Discontinued -Case discussed with Pulmonology who recommended to continue COPD treatment -Continue Solu-medrol, Spiriva and symbicort. -Nebulizers PRN -Continue with 02 Acute on Chronic COPD Exacerbation -Continue Solumedrol 40mg IVPB Q6H -Continue Inhalers with Symbicort and Spiriva -Continue Nebulizers PRN Acute Kidney Injury -Likely form Lasix use. -Continues to improve after Lasix held -Will continue to monitor BMP Atrial Fibrillation -Started on Eliquis 5mg BID -Continue Coreg 12.5mg BID Mesothelioma (Pleural) -Possibly worsening causing worsening shortness of breath -Being followed by Oncology. -Continue nivolumab, as per oncology HTN -Controlled -Continue Coreg 12.5mg BID -Continue Amlodipine 5mg daily -Continue to monitor BP Oral Thrush -Continue swish and swallow F/E/N -No fluids -Electrolytes wnl -Sodium controlled diet Prophylaxis -Eliquis 5mg BID for DVT -No GI required Disposition -Full code -Continue to treat COPD exacerbation as patient remains short of breath Lesia Gandara [id number] Visit type - Emergency Visit Emergency Visit: Yes ED Registration Date: 07/13/18 Care time: The patient presented to the Emergency Department on the above date and was hospitalized for further evaluation of their emergent condition. - New Patient This patient is new to me today: Yes Date on this admission: 07/14/18 - Critical Care Critical Care patient: No
--- NOTE | 2018-07-14 18:11 | EKG ---
Test Reason : Blood Pressure : / mmHG Vent. Rate : 089 BPM Atrial Rate : 357 BPM P-R Int : 000 ms QRS Dur : 088 ms QT Int : 314 ms P-R-T Axes : 000 036 -54 degrees QTc Int : 382 ms ATRIAL FIBRILLATION SEPTAL INFARCT (CITED ON OR BEFORE 11-AUG-2017) ABNORMAL ECG Confirmed by MD SOBEIDA, TY ([id number]) on 07/14/2018 6:11:28 PM Referred By: Confirmed By:TY VIDALES MD
[2018-07-14] MEDS ORDERED: PT OWN MED DRAWER 7, Y5N ONE (21:02)
--- NOTE | 2018-07-14 21:02 | PN ---
Progress Note (short form) - Note Progress Note: Patient seen and examined Initially treated w post VATS of Left lung with carboplatinum and Alimta. Did well x months and progressed with switch to single agent Nivolumab. Presents now with SOB and dyspnea Last Vital Signs Temp Pulse Resp BP Pulse Ox 98.0 F 85 20 120/65 98 07/14/18 18:51 07/14/18 18:51 07/14/18 18:51 07/14/18 18:51 07/14/18 20:56 HEENT: [place], EOM Intact Oropharynx: No thrush, No mucositis Neck: Supple Cor: RSR, No murmurs, Lungs: diminished breath sounds LLL>RLL Abd: Soft, Normal bowel sounds, No organomegaly, distended Ext:No significant edema Skin: No rashes, Integument intact CBC, BMP 07/14/18 06:00 07/14/18 06:00 Current Medications Generic Name Dose Route Start Last Admin Trade Name Freq PRN Reason Stop Dose Admin Albuterol Sulfate 1 amp 07/12/18 15:47 07/14/18 20:52 Ventolin 0.083% Nebulizer Soln - NEB 1 amp Q4H PRN Administration SHORT OF BREATH/WHEEZING Amlodipine Besylate 5 mg 07/12/18 10:00 07/14/18 10:17 Norvasc - PO 5 mg DAILY JANINE Administration Apixaban 5 mg 07/14/18 22:00 Eliquis - PO BID JANINE Aspirin 81 mg 07/12/18 10:00 07/14/18 10:17 Ecotrin - PO 81 mg DAILY JANINE Administration Budesonide/Formoterol Fumarate 2 puff 07/12/18 22:00 07/14/18 10:17 Symbicort 80/4.5mcg - IH 2 puff BID JANINE Administration Carvedilol 12.5 mg 07/12/18 22:00 07/14/18 10:17 Coreg - PO 12.5 mg BID JANINE Administration Fenofibric Acid 135 mg 07/12/18 10:00 07/14/18 10:18 Trilipix - PO 135 mg DAILY JANINE Administration Folic Acid 1 mg 07/12/18 10:00 07/14/18 10:17 Folic Acid - PO 1 mg DAILY JANINE Administration Methylprednisolone Sodium Succinate 40 mg 07/12/18 16:00 07/14/18 16:08 Solu-Medrol - IVPUSH 40 mg Q6H-IV JANINE Administration Nystatin 500,000 units 07/13/18 12:00 07/14/18 13:08 Nystatin Oral Suspension - PO 500,000 units Q6HPO JANINE Administration Tiotropium [place] 2 puff 07/12/18 11:00 07/14/18 12:08 Spiriva Respimat IH 2 puff DAILY JANINE Administration Impression: Mesothelioma S/P chemotherpay now on immunotherpay with Nivolumab. SOB/dyspnea Plan Current therapy.
[2018-07-14] MEDS: APIXABAN 5 MG TABLET PO SCH (21:04)
[2018-07-15] MEDS: methylPREDNISolone NA SUCC 40 MG/1 ML VIAL IVPUSH SCH ×4 (03:39→17:17)
[2018-07-15 06:40] LABS: BASO % 0.1 % (0-2.0); HEMATOCRIT 31.4 % (35.4-49); HEMOGLOBIN 10.2 GM/dL (11.7-16.9); LYMPH % 3.1 % (8-40); MCH 27.8 pg (25.7-33.7); MCHC 32.6 g/dl (32.0-35.9); MEAN CELL VOLUME 85.4 fl (80-96); MEAN PLT VOLUME 7.7 fl (7.5-11.1); MONO % 4.7 % (3.8-10.2); NEUT % 92.1 % (42.8-82.8); PLATELET COUNT 291 K/MM3 (134-434); RBC 3.67 M/mm3 (4.00-5.60); RDW 15.6 % (11.9-15.9); WHITE BLOOD COUNT 16.9 K/mm3 (4.0-10.0)
[2018-07-15 07:05] LABS: ANION GAP 5 MMOL/L (8-16); BLOOD UREA NITROGEN 25 mg/dL (7-18); CALCIUM 8.6 mg/dL (8.5-10.1); CHLORIDE 105 mmol/L (98-107); CO2 29 mmol/L (21-32); CREATININE 1.2 mg/dL (0.55-1.3); GLUCOSE,RANDOM 168 mg/dL (74-106); MAGNESIUM 2.6 mg/dL (1.8-2.4); PHOSPHOROUS 3.5 mg/dL (2.5-4.9); POTASSIUM 4.8 mmol/L (3.5-5.1); SODIUM 139 mmol/L (136-145)
--- NOTE | 2018-07-15 08:35 | PN ---
Physical Exam: SUBJECTIVE: Patient seen and examined by me at bedside. No acute events overnight Patient reports his shortness of breath improved significantly at rest but still has persistent shortness of breath on exertion. States he walked from one room to another with worsening shortness of breath today. Otherwise, denies any fever, chills, nausea, vomiting, abdominal pain, chest pain, palpitations, headaches, acute vision change. OBJECTIVE: Vital Signs Period Temp Pulse Resp BP Sys/Clements Pulse Ox Last 24 Hr 97.3 F-98.3 F 70-98 18-20 106-128/56-81 98-98 GENERAL: The patient is awake, alert, and fully oriented, in no acute distress. EYES: Sclera anicteric, conjunctiva clear. No ptosis. ENT: Moist mucous membranes. LUNGS: CTA b/l on rest. No accessory muscle use on 02 NC HEART: Irregularly irregular rhythm with regular rate. No murmurs appreciated ABDOMEN: Soft, nontender, distended, normoactive bowel sounds EXTREMITIES: No edema. Laboratory Results CBC, BMP 07/15/18 06:00 07/15/18 06:00 07/15/18 06:00 Phosphorus 3.5 Magnesium 2.6 H Active Medications Generic Name Dose Route Start Last Admin Trade Name Freq PRN Reason Stop Dose Admin Albuterol Sulfate 1 amp 07/12/18 15:47 07/14/18 20:52 Ventolin 0.083% Nebulizer Soln - NEB 1 amp Q4H PRN Administration SHORT OF BREATH/WHEEZING Amlodipine Besylate 5 mg 07/12/18 10:00 07/14/18 10:17 Norvasc - PO 5 mg DAILY JANINE Administration Apixaban 5 mg 07/14/18 22:00 07/14/18 21:04 Eliquis - PO 5 mg BID JANINE Administration Aspirin 81 mg 07/12/18 10:00 07/14/18 10:17 Ecotrin - PO 81 mg DAILY JANINE Administration Budesonide/Formoterol Fumarate 2 puff 07/12/18 22:00 07/14/18 21:05 Symbicort 80/4.5mcg - IH 2 puff BID JANINE Administration Carvedilol 12.5 mg 07/12/18 22:00 07/14/18 21:05 Coreg - PO 12.5 mg BID JANINE Administration Fenofibric Acid 135 mg 07/12/18 10:00 07/14/18 10:18 Trilipix - PO 135 mg DAILY JANINE Administration Folic Acid 1 mg 07/12/18 10:00 07/14/18 10:17 Folic Acid - PO 1 mg DAILY JANINE Administration Methylprednisolone Sodium Succinate 40 mg 07/12/18 16:00 07/15/18 03:39 Solu-Medrol - IVPUSH 40 mg Q6H-IV JANINE Administration Nystatin 500,000 units 07/13/18 12:00 07/14/18 18:30 Nystatin Oral Suspension - PO 500,000 units Q6HPO JANINE Administration Tiotropium [place] 2 puff 07/12/18 11:00 07/14/18 12:08 Spiriva Respimat IH 2 puff DAILY JANINE Administration ASSESSMENT AND PLAN: Patient is a 67 year old male with a significant PMHx of Mesothelioma and COPD who presented for severe shortness of breath and admitted for further monitoring and management. Shortness of breath -Likely secondary to Acute COPD exacerbation w/ possible worsening Mesothelioma -CTA done and negative for PE. -Case discussed with Pulmonology who recommended to continue COPD treatment -Solu-medrol tapered down to 40mg Q8H IV -Continue Spiriva and symbicort. -Nebulizers PRN -Continue with 02. -Pre and post 02 ordered for respiratory therapy. Will need to see if patient requires home 02 Acute on Chronic COPD Exacerbation -Decreased Solumedrol to 40mg IVPB Q8H -Continue Inhalers with Symbicort and Spiriva -Continue Nebulizers PRN Acute Kidney Injury -Likely form Lasix use. -Continues to improve after Lasix held -Will continue to monitor BMP Atrial Fibrillation -Started on Eliquis 5mg BID -Continue Coreg 12.5mg BID Mesothelioma (Pleural) -Possibly worsening causing worsening shortness of breath -Being followed by Oncology. -Continue nivolumab, as per oncology HTN -Controlled -Continue Coreg 12.5mg BID -Continue Amlodipine 5mg daily -Continue to monitor BP Oral Thrush -Continue swish and swallow F/E/N -No fluids -Electrolytes wnl -Sodium controlled diet Prophylaxis -Eliquis 5mg BID for DVT -No GI required Disposition -Full code -Continue to treat COPD exacerbation as patient remains short of breath Lesia Gandara [id number] Visit type - Emergency Visit Emergency Visit: Yes ED Registration Date: 07/13/18 Care time: The patient presented to the Emergency Department on the above date and was hospitalized for further evaluation of their emergent condition. - New Patient This patient is new to me today: No - Critical Care Critical Care patient: No
--- NOTE | 2018-07-15 09:24 | PN ---
Progress Note (short form) - Note Progress Note: Consult Consult Specialty:: cardio Reason for Consultation:: sob - History of Present Illness Chief Complaint: sob History of Present Illness: shortness of breath stable. no chest pain, palps, dizziness, lightheadedness Current Medications Albuterol Sulfate (Ventolin 0.083% Nebulizer Soln -) 1 amp NEB Q4H PRN PRN Reason: SHORT OF BREATH/WHEEZING Last Admin: 07/14/18 20:52 Dose: 1 amp Amlodipine Besylate (Norvasc -) 5 mg PO DAILY [facility] Last Admin: 07/14/18 10:17 Dose: 5 mg Apixaban (Eliquis -) 5 mg PO BID [facility] Last Admin: 07/14/18 21:04 Dose: 5 mg Aspirin (Ecotrin -) 81 mg PO DAILY [facility] Last Admin: 07/14/18 10:17 Dose: 81 mg Budesonide/Formoterol Fumarate (Symbicort 80/4.5mcg -) 2 puff IH BID [facility] Last Admin: 07/14/18 21:05 Dose: 2 puff Carvedilol (Coreg -) 12.5 mg PO BID [facility] Last Admin: 07/14/18 21:05 Dose: 12.5 mg Fenofibric Acid (Trilipix -) 135 mg PO DAILY [facility] Last Admin: 07/14/18 10:18 Dose: 135 mg Folic Acid (Folic Acid -) 1 mg PO DAILY [facility] Last Admin: 07/14/18 10:17 Dose: 1 mg Methylprednisolone Sodium Succinate (Solu-Medrol -) 40 mg IVPUSH Q6H-IV [facility] Last Admin: 07/15/18 03:39 Dose: 40 mg Nystatin (Nystatin Oral Suspension -) 500,000 units PO Q6HPO [facility] Last Admin: 07/14/18 18:30 Dose: 500,000 units Tiotropium [place] (Spiriva Respimat) 2 puff IH DAILY [facility] Last Admin: 07/14/18 12:08 Dose: 2 puff Vital Signs: Vital Signs Period Temp Pulse Resp BP Sys/Clements Pulse Ox Last 24 Hr 97.3 F-98.3 F 70-98 18-20 106-138/65-81 98 Constitutional: Yes: Well Nourished, No Distress Eyes: No: Sclera Icterus HENT: No: Nasal Congestion Neck: No: Decreased ROM Respiratory: Yes: CTA Bilaterally, Diminished (bases). No: Accessory Muscle Use , Rales, Wheezes Gastrointestinal: Yes: Normal Bowel Sounds, Distention. No: Hepatomegaly, Palpable Mass, Tenderness Cardiovascular: Yes: Regular Rate and Rhythm JVD: No Carotid Bruit: No PMI: Non-Displaced Heart Sounds: Yes: S1, S2. No: Gallop Murmur: No: Systolic Murmur, Diastolic Murmur Musculoskeletal: Yes: Other (No kyphosis) Extremities: No: Cool, Cyanosis Edema: No Peripheral Pulses: 2+ Left Carotid, 2+ Right Carotid, 2+ Left Doralis Pedis, 2+ Right Dorsalis Pedis Integumentary: No: Jaundice Neurological: Yes: Alert, Oriented (x3) Psychiatric: No: Agitated Assessment/Plan ECG: NSR, ? old AWMI (unchanged vs prior), diffuse NSST-T (mild)--slightly more pronounced vs prior echo in 10/15 Dr. Meyer: normal LV, no pericardial effusion (no other signif abnormality) echo 06/2018 nl LV function, mildly reduced RV function, borderline LA enlargement, mild MR, mild TR, RVSP nl, small pericardial effusion <1 cm, no echo indication of tamponade EKG 07/[address] chest: stable mesothelioma findings. no pulm edema. trace to small pleural eff (decr vs prior scan). [id number] pericardial effusion (no gross pericardial nodules/metastatic dz) tele: sinus, 19 beat run of NSVT. overnight in afib with occasional RVR 120s- 130s, this morning rate controlled SOB (including bendopnea), abd distension, pericardial effusion, mesothelioma, asthma: -? h/o CHF--no details available (home meds notable for carvedilol, lasix, amlodipine for bp)--recent w/u 2017 unrevealing per pt report -CT chest without signif pulm congestion. CT and sono without ascites. -BNP 300 (no priors) -appears euvolemic on exam -echo shows small pericardial effusion with no tamponade -no clinical tamponade with normal hemodynamics - no PE on CTA - pulm following afib - patient endorses history of "irregular heartbeat" 8-10 years go while being treated for mesothelioma, was started on aspirin 81 mg daily at that time - now with afib starting on tele 07/14 occasionally feeling palps, improving - PE ruled out, now on eliquis, [id number] score 2 - continue carvedilol NSVT - episode noted on tele - maintain K>4.0, Mg >2.0 - nl LV function HTN: -bp controlled -cont home meds CYNDIE on CKD: -baseline creat 1.4 -initially up here, given gentle IVF in ER (? total amt)--renal fxn near baseline now
[2018-07-15] MEDS: ASPIRIN COATED 81 MG TABLET.EC PO SCH (10:15)
[2018-07-15] MEDS: CARVEDILOL 12.5 MG TABLET (FP) PO SCH ×2 (10:15→21:16)
[2018-07-15] MEDS: FOLIC ACID 1 MG TABLET (FP) PO SCH (10:15)
[2018-07-15] MEDS: APIXABAN 5 MG TABLET PO SCH ×2 (10:15→21:15)
[2018-07-15] MEDS: amLODIPine BESYLATE 5 MG TABLET (FP) PO SCH (10:15)
[2018-07-15] MEDS: FENOFIBRIC ACID 135 MG CAP PO SCH (10:15)
[2018-07-15] MEDS: BUDESONIDE/FORMETEROL FUMARATE 80/4.5 mcg INHALER IH SCH ×2 (10:15→21:16)
[2018-07-15] MEDS: TIOTROPIUM BROMIDE 2.5 MCG (SPIRIVA) RESPIMAT INHALER IH SCH (10:16)
--- NOTE | 2018-07-15 11:03 | PN ---
Teaching Attending Note Name of Resident: Lesia Gandara ATTENDING PHYSICIAN STATEMENT I saw and evaluated the patient. I reviewed the resident's note and discussed the case with the resident. I agree with the resident's findings and plan as documented with exceptions below. SUBJECTIVE: Patient seen and examined. Breathing improved, Feels a little better. No chest pain, palpitations or dizziness noted. OBJECTIVE: Vital Signs Period Temp Pulse Resp BP Sys/Clements Pulse Ox Last 24 Hr 97.3 F-98.3 F 70-98 18-20 106-138/65-81 98 Intake & Output 07/12/18 07/13/18 07/14/18 07/15/18 23:59 23:59 23:59 23:59 Intake Total 199 1422 200 Output Total 1250 750 Balance 199 172 -550 Weight 211 lb General: sitting at edge of bed having breakfast, speaking in full sentences, no use of accessory muscles of respiration Neck: soft, supple, no JVD visualized Chest: good air entry bilaterally, no rales or wheezing appreciated Abdomen;soft, obese, NT Extremities: no pedal edema Home Medications Medication Instructions Recorded Amlodipine Besylate [Norvasc -] 5 mg PO DAILY 08/11/17 Aspirin [Ecotrin] 81 mg PO DAILY 08/11/17 Carvedilol 12.5 mg PO DAILY 08/11/17 Fenofibrate [Lipofen] 160 mg PO DAILY 08/11/17 Folic Acid 1 mg PO DAILY 08/11/17 Furosemide [Lasix] 40 mg PO BID 08/11/17 Omeprazole Magnesium [Prilosec Otc] 20 mg PO DAILY 08/11/17 Triamcinolone 0.1% Cream 1 applic TP BID #1 applic 08/14/17 [Aristocort 0.1% Cream -] Budesonide/Formeterol Fumarate 2 inh IH DAILY 07/12/18 [SYMBICORT 80/4.5mcg -] Ipratropium/Albuterol Sulfate 4 gm IH BID 07/12/18 [Combivent Respimat Inhal [place]] Umeclidinium [place] [Incruse 1 puff IH TID 07/12/18 Ellipta] Lactobacillus Acidophilus [Bacid -] 1 each PO DAILY 07/13/18 Psyllium Husk (with Sugar) 3.4 gm PO DAILY 07/13/18 [Metamucil Packet] Active Medications Albuterol Sulfate (Ventolin 0.083% Nebulizer Soln -) 1 amp NEB Q4H PRN PRN Reason: SHORT OF BREATH/WHEEZING Last Admin: 07/14/18 20:52 Dose: 1 amp Amlodipine Besylate (Norvasc -) 5 mg PO DAILY [facility] Last Admin: 07/15/18 10:15 Dose: 5 mg Apixaban (Eliquis -) 5 mg PO BID [facility] Last Admin: 07/15/18 10:15 Dose: 5 mg Aspirin (Ecotrin -) 81 mg PO DAILY [facility] Last Admin: 07/15/18 10:15 Dose: 81 mg Budesonide/Formoterol Fumarate (Symbicort 80/4.5mcg -) 2 puff IH BID [facility] Last Admin: 07/15/18 10:15 Dose: 2 puff Carvedilol (Coreg -) 12.5 mg PO BID [facility] Last Admin: 07/15/18 10:15 Dose: 12.5 mg Fenofibric Acid (Trilipix -) 135 mg PO DAILY [facility] Last Admin: 07/15/18 10:15 Dose: 135 mg Folic Acid (Folic Acid -) 1 mg PO DAILY [facility] Last Admin: 07/15/18 10:15 Dose: 1 mg Insulin Aspart (Novolog Vial Sliding Scale -) 1 vial SQ TIDAC [facility]; Protocol Methylprednisolone Sodium Succinate (Solu-Medrol -) 40 mg IVPUSH Q8H [facility] Nystatin (Nystatin Oral Suspension -) 500,000 units PO Q6HPO [facility] Last Admin: 07/14/18 18:30 Dose: 500,000 units Tiotropium [place] (Spiriva Respimat) 2 puff IH DAILY [facility] Last Admin: 07/15/18 10:16 Dose: 2 puff Laboratory Results - last 24 hr 07/14/18 07/15/18 07/15/18 06:00 06:00 06:00 WBC 16.9 H RBC 3.67 L Hgb 10.2 L Hct 31.4 L MCV 85.4 MCH 27.8 MCHC 32.6 RDW 15.6 Plt Count 291 MPV 7.7 Absolute Neuts (auto) 15.5 H Neutrophils % 92.1 H Neutrophils % (Manual) 89.3 H D Band Neutrophils % 0.0 Lymphocytes % 3.1 L Lymphocytes % (Manual) 5.8 L D Monocytes % 4.7 Monocytes % (Manual) 5 D Eosinophils % 0.0 Eosinophils % (Manual) 0.0 D Basophils % 0.1 Basophils % (Manual) 0.0 Myelocytes % (Man) 0 Promyelocytes % (Man) 0 Blast Cells % (Manual) 0 Nucleated RBC % 0 Metamyelocytes 0 Hypochromia 1+ Platelet Estimate Normal Polychromasia 0 Poikilocytosis 1+ Anisocytosis 0 Microcytosis 0 Macrocytosis 0 Sodium 139 Potassium 4.8 Chloride 105 Carbon Dioxide 29 Anion Gap 5 L BUN 25 H Creatinine 1.2 Creat Clearance w eGFR > 60 Random Glucose 168 H Calcium 8.6 Phosphorus 3.5 Magnesium 2.6 H CTA/CT chest/Abdominal/Renal US results reviewed Telemetry: atrial fibrillation, no evidence of tachycardia noted ASSESSMENT AND PLAN: 67M with COPD, CHF, CKD, mesothelioma dx 2 years ago, s/p carbo/alimta with eventual POD, now on nivolumab since 12/2017 (c11 on 07/06/18), admitted with dyspnea, found with COPD exacerbation and new onset Afib (rate controlled) -Acute COPD exacerbation -New Onset Atrial fibrillation (rate controlled) -Small pericardial effusion -CYNDIE, ?Hypovolumia -Hyperglycemia, suspect steroid induced. -Mesotheliama dx 2 years ago, s/p carbo/alimta with eventual POD, now on nivolumab since 12/2017 (c11 on 07/06/18) Plan: Clinically improved. Taper solumedrol to 40 mg IV q8h.Nebs prn. Home oxygen needs assessment in 24 hours if continues to improve. CTA neg for PE. Off heparin drip. Pulmonary/Oncology input appreciated. Cardiology input noted, 2D echo results reviewed. Eliquis/Coreg/aspirin. Renal function stable. Renal US noted. Monitor for now. Check A1c, BGM/ISS while on steroids, to start for BG >200. DVTPPX apixaban as above. Dispo d/c in 24-48 hours on PO steroids +/- home oxygen if continues to improve. Plan discussed with patient in detail, all questions answered.
[2018-07-15 11:12] LABS: ACANTHOCYTES 0; ANISOCYTOSIS 0; HELMET CELLS 0; HOWELL-JOLLY BODIES 0; MACROCYTOSIS 0; OVALOCYTE 0; PLATELET ESTIMATE NORMAL; ROULEAU 0; SICKELED CELLS 0; TARGET CELLS 0; TEAR DROP CELLS 0; TOXIC GRANULATION 0
[2018-07-15] MEDS: NYSTATIN 500,000 UNITS/5 ML SUSPENSION PO SCH ×2 (11:46→17:16)
[2018-07-15] MEDS: INSULIN SLIDING SCALE (NOVOLOG) 1 VIAL SQ SCH ×2 (11:46→17:16)
--- NOTE | 2018-07-15 12:42 | PN ---
Progress Note, Physician History of Present Illness: PULMONARY ALERT,STILL DYSPNEIC WITH MIN EXERTION. CHEST CTA -PE - Current Medication List Current Medications: Active Medications Albuterol Sulfate (Ventolin 0.083% Nebulizer Soln -) 1 amp NEB Q4H PRN PRN Reason: SHORT OF BREATH/WHEEZING Last Admin: 07/14/18 20:52 Dose: 1 amp Amlodipine Besylate (Norvasc -) 5 mg PO DAILY [facility] Last Admin: 07/15/18 10:15 Dose: 5 mg Apixaban (Eliquis -) 5 mg PO BID [facility] Last Admin: 07/15/18 10:15 Dose: 5 mg Aspirin (Ecotrin -) 81 mg PO DAILY [facility] Last Admin: 07/15/18 10:15 Dose: 81 mg Budesonide/Formoterol Fumarate (Symbicort 80/4.5mcg -) 2 puff IH BID [facility] Last Admin: 07/15/18 10:15 Dose: 2 puff Carvedilol (Coreg -) 12.5 mg PO BID [facility] Last Admin: 07/15/18 10:15 Dose: 12.5 mg Fenofibric Acid (Trilipix -) 135 mg PO DAILY [facility] Last Admin: 07/15/18 10:15 Dose: 135 mg Folic Acid (Folic Acid -) 1 mg PO DAILY [facility] Last Admin: 07/15/18 10:15 Dose: 1 mg Insulin Aspart (Novolog Vial Sliding Scale -) 1 vial SQ TIDAC [facility]; Protocol Last Admin: 07/15/18 11:46 Dose: 2 units Methylprednisolone Sodium Succinate (Solu-Medrol -) 40 mg IVPUSH Q8H-IV [facility] Last Admin: 07/15/18 11:46 Dose: Not Given Nystatin (Nystatin Oral Suspension -) 500,000 units PO Q6HPO [facility] Last Admin: 07/15/18 11:46 Dose: 500,000 units Tiotropium [place] (Spiriva Respimat) 2 puff IH DAILY [facility] Last Admin: 07/15/18 10:16 Dose: 2 puff - Objective Vital Signs: Vital Signs Temperature 98.0 F 07/15/18 09:03 Pulse Rate 82 07/15/18 09:03 Respiratory Rate 18 07/15/18 09:03 Blood Pressure 138/81 07/15/18 09:03 O2 Sat by Pulse Oximetry (%) 98 07/14/18 20:56 Constitutional: Yes: Well Nourished, Calm Eyes: Yes: WNL HENT: Yes: WNL Neck: Yes: WNL Cardiovascular: Yes: Pulse Irregular, S1, S2 Respiratory: Yes: Diminished Gastrointestinal: Yes: Normal Bowel Sounds, Soft Extremities: Yes: WNL Edema: No Labs: CBC, BMP 07/15/18 06:00 07/15/18 06:00 Problem List - Problems (1) COPD exacerbation Code(s): J44.1 - CHRONIC OBSTRUCTIVE PULMONARY DISEASE W (ACUTE) EXACERBATION (2) Shortness of breath Code(s): R06.02 - SHORTNESS OF BREATH (3) Asthma Code(s): J45.909 - UNSPECIFIED ASTHMA, UNCOMPLICATED (4) HTN (hypertension) Code(s): I10 - ESSENTIAL (PRIMARY) HYPERTENSION (5) CYNDIE (acute kidney injury) Code(s): N17.9 - ACUTE KIDNEY FAILURE, UNSPECIFIED (6) Mesothelioma (pleural) Code(s): C45.0 - MESOTHELIOMA OF PLEURA Assessment/Plan IMP DYSPNEA LIKELY COPD/ASTHMA EXACERBATION MESOTHELIOMA CYNDIE HTN ANEMIA CHF AFIB PLAN INHALED BRONCHODILATORS MEDROL SAME DOSE O2 MONITOR LYTES/RENAL FUNCTION AC OUTPATIENT PULMONARY REHAB DR CHAUHAN Problem List - Problems (1) COPD exacerbation Code(s): J44.1 - CHRONIC OBSTRUCTIVE PULMONARY DISEASE W (ACUTE) EXACERBATION (2) Shortness of breath Code(s): R06.02 - SHORTNESS OF BREATH (3) Asthma Code(s): J45.909 - UNSPECIFIED ASTHMA, UNCOMPLICATED (4) HTN (hypertension) Code(s): I10 - ESSENTIAL (PRIMARY) HYPERTENSION (5) CYNDIE (acute kidney injury) Code(s): N17.9 - ACUTE KIDNEY FAILURE, UNSPECIFIED (6) Mesothelioma (pleural) Code(s): C45.0 - MESOTHELIOMA OF PLEURA
--- NOTE | 2018-07-15 19:32 | PN ---
Progress Note (short form) - Note Progress Note: Patient seen and examined Remains dyspneic on minimal exertion Requires oxygen / The CT is unchanged New onset of Atrial Fib No P.E. If CT is stable , why is patient so profoundly dyspneic ? Is it AF or other cardiac etiology ? Previous to this admission never required oxygen and able to come for all office appointments with minimal distress. P.E. Lungs with diminished breath sounds L>R Cor -AF Abd- distension No significant LE edema CBC, BMP 07/15/18 06:00 07/15/18 06:00 Current Medications Generic Name Dose Route Start Last Admin Trade Name Freq PRN Reason Stop Dose Admin Albuterol Sulfate 1 amp 07/12/18 15:47 07/14/18 20:52 Ventolin 0.083% Nebulizer Soln - NEB 1 amp Q4H PRN Administration SHORT OF BREATH/WHEEZING Amlodipine Besylate 5 mg 07/12/18 10:00 07/15/18 10:15 Norvasc - PO 5 mg DAILY JANINE Administration Apixaban 5 mg 07/14/18 22:00 07/15/18 10:15 Eliquis - PO 5 mg BID JANINE Administration Aspirin 81 mg 07/12/18 10:00 07/15/18 10:15 Ecotrin - PO 81 mg DAILY JANINE Administration Budesonide/Formoterol Fumarate 2 puff 07/12/18 22:00 07/15/18 10:15 Symbicort 80/4.5mcg - IH 2 puff BID JANINE Administration Carvedilol 12.5 mg 07/12/18 22:00 07/15/18 10:15 Coreg - PO 12.5 mg BID JANINE Administration Fenofibric Acid 135 mg 07/12/18 10:00 07/15/18 10:15 Trilipix - PO 135 mg DAILY JANINE Administration Folic Acid 1 mg 07/12/18 10:00 07/15/18 10:15 Folic Acid - PO 1 mg DAILY JANINE Administration Insulin Aspart 1 vial 07/15/18 11:00 07/15/18 17:16 Novolog Vial Sliding Scale - SQ 2 units TIDAC JANINE Administration Protocol Methylprednisolone Sodium Succinate 40 mg 07/15/18 11:15 07/15/18 17:17 Solu-Medrol - IVPUSH 40 mg Q8H-IV JANINE Administration Nystatin 500,000 units 07/13/18 12:00 07/15/18 17:16 Nystatin Oral Suspension - PO 500,000 units Q6HPO JANINE Administration Tiotropium [place] 2 puff 07/12/18 11:00 07/15/18 10:16 Spiriva Respimat IH 2 puff DAILY JANINE Administration Impression: Mesothelioma AF Continue current meds Will speak with cardiology Last Vital Signs Temp Pulse Resp BP Pulse Ox 97.8 F 81 18 131/86 96 07/15/18 18:00 07/15/18 18:00 07/15/18 18:00 07/15/18 18:00 07/15/18 09:00
[2018-07-15] MEDS ORDERED: PT OWN MED DRAWER 7, Y5N ONE (21:12)
[2018-07-16] MEDS: methylPREDNISolone NA SUCC 40 MG/1 ML VIAL IVPUSH SCH ×3 (01:04→16:59)
[2018-07-16] MEDS: NYSTATIN 500,000 UNITS/5 ML SUSPENSION PO SCH ×5 (01:04→16:59)
[2018-07-16] MEDS: INSULIN SLIDING SCALE (NOVOLOG) 1 VIAL SQ SCH ×3 (06:06→17:05)
[2018-07-16 06:28] LABS: BASO % 0.1 % (0-2.0); HEMATOCRIT 31.3 % (35.4-49); HEMOGLOBIN 10.6 GM/dL (11.7-16.9); LYMPH % 3.4 % (8-40); MCH 28.3 pg (25.7-33.7); MCHC 33.7 g/dl (32.0-35.9); MEAN CELL VOLUME 83.9 fl (80-96); MEAN PLT VOLUME 7.7 fl (7.5-11.1); MONO % 4.5 % (3.8-10.2); PLATELET COUNT 304 K/MM3 (134-434); RBC 3.73 M/mm3 (4.00-5.60); RDW 15.7 % (11.9-15.9); WHITE BLOOD COUNT 17.1 K/mm3 (4.0-10.0)
[2018-07-16] MEDS: ALBUTEROL SO4 0.083% IH SOL 2.5 MG/3 ML VIAL.NEB. NEB PRN ×2 (07:11→20:50)
[2018-07-16 09:02] LABS: ALBUMIN 3.1 g/dl (3.4-5.0); ALK PHOS 81 U/L (45-117); ANION GAP 8 MMOL/L (8-16); BILIRUBIN,TOTAL 0.7 mg/dL (0.2-1); BLOOD UREA NITROGEN 30 mg/dL (7-18); CALCIUM 8.3 mg/dL (8.5-10.1); CHLORIDE 105 mmol/L (98-107); CO2 28 mmol/L (21-32); CREATININE 1.3 mg/dL (0.55-1.3); GLUCOSE,RANDOM 155 mg/dL (74-106); MAGNESIUM 2.3 mg/dL (1.8-2.4); PHOSPHOROUS 3.4 mg/dL (2.5-4.9); POTASSIUM 4.7 mmol/L (3.5-5.1); SGOT/AST 17 U/L (15-37); SGPT/ALT 45 U/L (13-61); SODIUM 141 mmol/L (136-145); TOT PROT 6.6 g/dl (6.4-8.2)
[2018-07-16] MEDS ORDERED: PT OWN MED DRAWER 7, Y5N ONE ×3 (09:08→21:26)
[2018-07-16] MEDS: amLODIPine BESYLATE 5 MG TABLET (FP) PO SCH (09:40)
[2018-07-16] MEDS: FOLIC ACID 1 MG TABLET (FP) PO SCH (09:40)
[2018-07-16] MEDS: ASPIRIN COATED 81 MG TABLET.EC PO SCH (09:40)
[2018-07-16] MEDS: CARVEDILOL 12.5 MG TABLET (FP) PO SCH ×2 (09:40→21:27)
[2018-07-16] MEDS: APIXABAN 5 MG TABLET PO SCH ×2 (09:40→21:28)
[2018-07-16] MEDS: FENOFIBRIC ACID 135 MG CAP PO SCH (09:41)
[2018-07-16] MEDS: BUDESONIDE/FORMETEROL FUMARATE 80/4.5 mcg INHALER IH SCH ×2 (09:41→21:28)
[2018-07-16 09:43] LABS: MACROCYTOSIS 0; PLATELET ESTIMATE NORMAL
[2018-07-16] MEDS: TIOTROPIUM BROMIDE 2.5 MCG (SPIRIVA) RESPIMAT INHALER IH SCH (09:50)
--- NOTE | 2018-07-16 09:58 | PN ---
Physical Exam: SUBJECTIVE: Patient seen and examined by me at bedside. No acute events overnight Reports still has shortness of breath on exertion and is not able to tolerate more than a few steps without feeling short of breath. States he is dependent on 02 now. Otherwise, denies any fever, chills, nausea, vomiting, abdominal pain, chest pain, palpitations, headaches, dizziness, acute vision changes, urinary or bladder symptoms. OBJECTIVE: Vital Signs Period Temp Pulse Resp BP Sys/Clements Pulse Ox Last 24 Hr 97.3 F-97.9 F 73-84 18-18 105-151/66-96 99 GENERAL: The patient is awake, alert, and fully oriented, in no acute distress. EYES: Sclera anicteric, conjunctiva clear. No ptosis. ENT: Moist mucous membranes. LUNGS: CTA b/l on rest. No accessory muscle use on 02 NC HEART: Irregularly irregular rhythm with regular rate. No murmurs appreciated ABDOMEN: Soft, nontender, distended, normoactive bowel sounds EXTREMITIES: No edema. Laboratory Results - last 24 hr 07/16/18 06:00 07/16/18 06:00 Active Medications Generic Name Dose Route Start Last Admin Trade Name Freq PRN Reason Stop Dose Admin Albuterol Sulfate 1 amp 07/12/18 15:47 07/16/18 07:11 Ventolin 0.083% Nebulizer Soln - NEB 1 amp Q4H PRN Administration SHORT OF BREATH/WHEEZING Amlodipine Besylate 5 mg 07/12/18 10:00 07/16/18 09:40 Norvasc - PO 5 mg DAILY JANINE Administration Apixaban 5 mg 07/14/18 22:00 07/16/18 09:40 Eliquis - PO 5 mg BID JANINE Administration Aspirin 81 mg 07/12/18 10:00 07/16/18 09:40 Ecotrin - PO 81 mg DAILY JANINE Administration Budesonide/Formoterol Fumarate 2 puff 07/12/18 22:00 07/16/18 09:41 Symbicort 80/4.5mcg - IH 2 puff BID JANINE Administration Carvedilol 12.5 mg 07/12/18 22:00 07/16/18 09:40 Coreg - PO 12.5 mg BID JANINE Administration Fenofibric Acid 135 mg 07/12/18 10:00 01/17/19 09:41 Trilipix - PO 135 mg DAILY JANINE Administration Folic Acid 1 mg 07/12/18 10:00 07/16/18 09:40 Folic Acid - PO 1 mg DAILY JANINE Administration Insulin Aspart 1 vial 07/15/18 11:00 07/16/18 06:06 Novolog Vial Sliding Scale - SQ Not Given TIDAC [facility] Protocol Methylprednisolone Sodium Succinate 40 mg 07/15/18 11:15 07/16/18 09:40 Solu-Medrol - IVPUSH 40 mg Q8H-IV JANIEN Administration Nystatin 500,000 units 07/13/18 12:00 07/16/18 06:23 Nystatin Oral Suspension - PO 500,000 units Q6HPO JANINE Administration Tiotropium [place] 2 puff 07/12/18 11:00 07/16/18 09:50 Spiriva Respimat IH Not Given DAILY [facility] ASSESSMENT/PLAN: Patient is a 67 year old male with a significant PMHx of Mesothelioma and COPD who presented for severe shortness of breath and admitted for further monitoring and management. Shortness of breath -Likely secondary to Acute COPD exacerbation w/ possible worsening Mesothelioma -CTA done and negative for PE. -Case discussed with Pulmonology who recommended to continue COPD treatment but will need cardio input -Continue Solu-medrol 40mg IVPB Q8H -Continue Spiriva and symbicort. -Nebulizers PRN -Continue with 02. -Pre and post 02 ordered for respiratory therapy. Will need to see if patient requires home 02 -Will have pre and post 02 to see if patient requires oxygen at home Acute on Chronic COPD Exacerbation -Continue Solumedrol 40mg IVPB Q8H -Continue Inhalers with Symbicort and Spiriva -Continue Nebulizers PRN Acute Kidney Injury -Likely form Lasix use. -Continues to improve after Lasix held -Will continue to monitor BMP Atrial Fibrillation -Started on Eliquis 5mg BID -Continue Coreg 12.5mg BID Mesothelioma (Pleural) -Possibly worsening causing worsening shortness of breath -Being followed by Oncology. -Continue nivolumab, as per oncology HTN -Controlled -Continue Coreg 12.5mg BID -Continue Amlodipine 5mg daily -Continue to monitor BP Oral Thrush -Continue swish and swallow F/E/N -No fluids -Electrolytes wnl -Sodium controlled diet Prophylaxis -Eliquis 5mg BID for DVT -No GI required Disposition -Full code -Continue to treat COPD exacerbation as patient remains short of breath Lesia Gadnara [id number] Visit type - Emergency Visit Emergency Visit: Yes ED Registration Date: 07/13/18 Care time: The patient presented to the Emergency Department on the above date and was hospitalized for further evaluation of their emergent condition. - New Patient This patient is new to me today: No - Critical Care Critical Care patient: No
--- NOTE | 2018-07-16 10:40 | PN ---
Teaching Attending Note Name of Resident: Lesia Gandara ATTENDING PHYSICIAN STATEMENT I saw and evaluated the patient. I reviewed the resident's note and discussed the case with the resident. I agree with the resident's findings and plan as documented with exceptions below. SUBJECTIVE: Patient seen and examined, still with dyspnea with exertion,overall unchanged from yesterday, symptoms more with exertion, feels new inhaler he is receiving in the hospital is making him cough. OBJECTIVE: Vital Signs Period Temp Pulse Resp BP Sys/Clements Pulse Ox Last 24 Hr 97.3 F-97.9 F 73-84 18-18 105-151/66-96 99 Intake & Output 07/13/18 07/14/18 07/15/18 07/16/18 23:59 23:59 23:59 23:59 Intake Total 199 1422 1150 Output Total 1250 750 Balance 199 172 400 Weight 211 lb general: mild tachypnea, walking out of bathroom Chest: some decrease in air entry than yesterday, occasional wheezing Abdomen:soft, obese, NT Extremities: no edema Home Medications Medication Instructions Recorded Amlodipine Besylate [Norvasc -] 5 mg PO DAILY 08/11/17 Aspirin [Ecotrin] 81 mg PO DAILY 08/11/17 Carvedilol 12.5 mg PO DAILY 08/11/17 Fenofibrate [Lipofen] 160 mg PO DAILY 08/11/17 Folic Acid 1 mg PO DAILY 08/11/17 Furosemide [Lasix] 40 mg PO BID 08/11/17 Omeprazole Magnesium [Prilosec Otc] 20 mg PO DAILY 08/11/17 Triamcinolone 0.1% Cream 1 applic TP BID #1 applic 08/14/17 [Aristocort 0.1% Cream -] Budesonide/Formeterol Fumarate 2 inh IH DAILY 07/12/18 [SYMBICORT 80/4.5mcg -] Ipratropium/Albuterol Sulfate 4 gm IH BID 07/12/18 [Combivent Respimat Inhal [place]] Umeclidinium [place] [Incruse 1 puff IH TID 07/12/18 Ellipta] Lactobacillus Acidophilus [Bacid -] 1 each PO DAILY 07/13/18 Psyllium Husk (with Sugar) 3.4 gm PO DAILY 07/13/18 [Metamucil Packet] Active Medications Albuterol Sulfate (Ventolin 0.083% Nebulizer Soln -) 1 amp NEB Q4H PRN PRN Reason: SHORT OF BREATH/WHEEZING Last Admin: 07/16/18 07:11 Dose: 1 amp Amlodipine Besylate (Norvasc -) 5 mg PO DAILY [facility] Last Admin: 07/16/18 09:40 Dose: 5 mg Apixaban (Eliquis -) 5 mg PO BID [facility] Last Admin: 07/16/18 09:40 Dose: 5 mg Aspirin (Ecotrin -) 81 mg PO DAILY [facility] Last Admin: 07/16/18 09:40 Dose: 81 mg Budesonide/Formoterol Fumarate (Symbicort 80/4.5mcg -) 2 puff IH BID [facility] Last Admin: 07/16/18 09:41 Dose: 2 puff Carvedilol (Coreg -) 12.5 mg PO BID [facility] Last Admin: 07/16/18 09:40 Dose: 12.5 mg Fenofibric Acid (Trilipix -) 135 mg PO DAILY [facility] Last Admin: 07/16/18 09:41 Dose: 135 mg Folic Acid (Folic Acid -) 1 mg PO DAILY [facility] Last Admin: 07/16/18 09:40 Dose: 1 mg Insulin Aspart (Novolog Vial Sliding Scale -) 1 vial SQ TIDAC [facility]; Protocol Last Admin: 07/16/18 06:06 Dose: Not Given Methylprednisolone Sodium Succinate (Solu-Medrol -) 40 mg IVPUSH Q8H-IV [facility] Last Admin: 07/16/18 09:40 Dose: 40 mg Nystatin (Nystatin Oral Suspension -) 500,000 units PO Q6HPO [facility] Last Admin: 07/16/18 06:23 Dose: 500,000 units Tiotropium [place] (Spiriva Respimat) 2 puff IH DAILY [facility] Last Admin: 07/16/18 09:50 Dose: Not Given Laboratory Results - last 24 hr 07/15/18 07/16/18 07/16/18 06:00 06:00 06:00 WBC 17.1 H RBC 3.73 L Hgb 10.6 L Hct 31.3 L MCV 83.9 MCH 28.3 MCHC 33.7 RDW 15.7 Plt Count 304 MPV 7.7 Absolute Neuts (auto) 15.7 H Neutrophils % 92.0 H Neutrophils % (Manual) 97.0 H Band Neutrophils % 0.0 Lymphocytes % 3.4 L Lymphocytes % (Manual) 2.0 L D Monocytes % 4.5 Monocytes % (Manual) 1 L Eosinophils % 0.0 Eosinophils % (Manual) 0.0 Basophils % 0.1 Basophils % (Manual) 0.0 Myelocytes % (Man) 0 Promyelocytes % (Man) 0 Blast Cells % (Manual) 0 Nucleated RBC % 0 Metamyelocytes 0 Hypochromia 0 Toxic Granulation 0 Dohle Bodies 0 Platelet Estimate Normal Polychromasia 0 Poikilocytosis 0 Basophilic Stippling 0 Anisocytosis 0 Microcytosis 0 Macrocytosis 0 Spherocytes 0 Sickle Cells 0 Target Cells 0 Tear Drop Cells 0 Ovalocytes 0 Stomatocytes 0 Helmet Cells 0 Braden-[place]ddington Bodies 0 [place] Rings 0 Prateek Cells 0 Acanthocytes (Spur) 0 Rouleaux 0 Fragmented RBCs 0 Schistocytes 0 Sodium Potassium Chloride Carbon Dioxide Anion Gap BUN Creatinine Creat Clearance w eGFR Random Glucose Hemoglobin A1c % 6.5 H Calcium Phosphorus Magnesium Total Bilirubin AST ALT Alkaline Phosphatase Total Protein Albumin 07/16/18 06:00 WBC RBC Hgb Hct MCV MCH MCHC RDW Plt Count MPV Absolute Neuts (auto) Neutrophils % Neutrophils % (Manual) Band Neutrophils % Lymphocytes % Lymphocytes % (Manual) Monocytes % Monocytes % (Manual) Eosinophils % Eosinophils % (Manual) Basophils % Basophils % (Manual) Myelocytes % (Man) Promyelocytes % (Man) Blast Cells % (Manual) Nucleated RBC % Metamyelocytes Hypochromia Toxic Granulation Dohle Bodies Platelet Estimate Polychromasia Poikilocytosis Basophilic Stippling Anisocytosis Microcytosis Macrocytosis Spherocytes Sickle Cells Target Cells Tear Drop Cells Ovalocytes Stomatocytes Helmet Cells Braden-Eddington Bodies [place] Rings Prateek Cells Acanthocytes (Spur) Rouleaux Fragmented RBCs Schistocytes Sodium 141 Potassium 4.7 Chloride 105 Carbon Dioxide 28 Anion Gap 8 BUN 30 H Creatinine 1.3 Creat Clearance w eGFR 55.06 Random Glucose 155 H Hemoglobin A1c % Calcium 8.3 L Phosphorus 3.4 Magnesium 2.3 Total Bilirubin 0.7 AST 17 ALT 45 Alkaline Phosphatase 81 Total Protein 6.6 Albumin 3.1 L telemetry: Afib occasional HR 140s, suspect in the setting of neb treatment ASSESSMENT AND PLAN: 67M with COPD, CHF, CKD, mesothelioma dx 2 years ago, s/p carbo/alimta with eventual POD, now on nivolumab since 12/2017 (c11 on 07/06/18), admitted with dyspnea, found with COPD exacerbation and new onset Afib (rate controlled) -Acute COPD exacerbation -New Onset Atrial fibrillation (rate controlled) -Small pericardial effusion -CYNDIE, ?Hypovolumia -Hyperglycemia, suspect steroid induced. -Mesotheliama dx 2 years ago, s/p carbo/alimta with eventual POD, now on nivolumab since 12/2017 (c11 on 07/06/18) Plan: Clinically improved. Continue current dose of solumedrol today. Home oxygen needs assessment. CTA neg for PE. Off heparin drip. Pulmonary/Oncology input appreciated. Cardiology input noted, 2D echo results reviewed. Clinically does not look in CHF. Symptoms not consistent with tachycardia. Current presentation not suggestive of cardiac etiology. If fails to improve, address with cardiology about additional w/u Eliquis/Coreg/aspirin. Renal function stable. Renal US noted. Monitor for now. A1c noted, Diabetic diet and nutrition consult. Will need outpatient monitoring once off steroids. DVTPPX apixaban as above. Dispo pending clinical improvement, PT eval. Plan discussed with patient in detail, all questions answered.
[2018-07-16 11:02] LABS: ANISOCYTOSIS 0
[2018-07-16] MEDS ORDERED: FUROSEMIDE 40 MG/4 ML INJECTABLE VIAL IVPUSH ONE (11:11)
--- NOTE | 2018-07-16 11:15 | PN ---
Progress Note (short form) - Note Progress Note: Chief Complaint: sob History of Present Illness: shortness of breath persists. no chest pain, palps, dizziness, lightheadedness Current Medications Generic Name Dose Route Start Last Admin Trade Name Freq PRN Reason Stop Dose Admin Albuterol Sulfate 1 amp 07/12/18 15:47 07/16/18 07:11 Ventolin 0.083% Nebulizer Soln - NEB 1 amp Q4H PRN Administration SHORT OF BREATH/WHEEZING Amlodipine Besylate 5 mg 07/12/18 10:00 07/16/18 09:40 Norvasc - PO 5 mg DAILY JANINE Administration Apixaban 5 mg 07/14/18 22:00 07/16/18 09:40 Eliquis - PO 5 mg BID JANINE Administration Aspirin 81 mg 07/12/18 10:00 07/16/18 09:40 Ecotrin - PO 81 mg DAILY JANINE Administration Budesonide/Formoterol Fumarate 2 puff 07/12/18 22:00 07/16/18 09:41 Symbicort 80/4.5mcg - IH 2 puff BID JANINE Administration Carvedilol 12.5 mg 07/12/18 22:00 07/16/18 09:40 Coreg - PO 12.5 mg BID JANINE Administration Fenofibric Acid 135 mg 07/12/18 10:00 07/16/18 09:41 Trilipix - PO 135 mg DAILY JANINE Administration Folic Acid 1 mg 07/12/18 10:00 07/16/18 09:40 Folic Acid - PO 1 mg DAILY JANINE Administration Furosemide 60 mg 07/16/18 11:11 Lasix Injection - IVPUSH 07/16/18 11:12 ONCE ONE Insulin Aspart 1 vial 07/15/18 11:00 07/16/18 06:06 Novolog Vial Sliding Scale - SQ Not Given TIDAC COUNT INCLUDES [facility] Protocol Methylprednisolone Sodium Succinate 40 mg 07/15/18 11:15 07/16/18 09:40 Solu-Medrol - IVPUSH 40 mg Q8H-IV JANINE Administration Nystatin 500,000 units 07/13/18 12:00 07/16/18 06:23 Nystatin Oral Suspension - PO 500,000 units Q6HPO JANINE Administration Tiotropium [place] 2 puff 07/12/18 11:00 07/16/18 09:50 Spiriva Respimat IH Not Given DAILY JANINE Vital Signs Period Temp Pulse Resp BP Sys/Clements Pulse Ox Last 24 Hr 97.3 F-97.9 F 73-108 18-18 105-151/66-96 94-99 Constitutional: Yes: Well Nourished, No Distress Eyes: No: Sclera Icterus Respiratory: Yes: CTA Bilaterally, Diminished (bases). No: Accessory Muscle Use , Rales, Wheezes Gastrointestinal: Yes: Normal Bowel Sounds, Distention. No: Hepatomegaly, Palpable Mass, Tenderness Cardiovascular: Yes: Regular Rate and Rhythm JVD: No Heart Sounds: Yes: S1, S2. No: Gallop Murmur: No: Systolic Murmur, Diastolic Murmur Extremities: No: Cool, Cyanosis Edema: No Peripheral Pulses: 2+ Left Carotid, 2+ Right Carotid, 2+ Left Doralis Pedis, 2+ Right Dorsalis Pedis Integumentary: No: Jaundice Neurological: Yes: Alert, Oriented (x3) Psychiatric: No: Agitated CBC, BMP 07/16/18 06:00 07/16/18 06:00 Assessment/Plan ECG: NSR, ? old AWMI (unchanged vs prior), diffuse NSST-T (mild)--slightly more pronounced vs prior echo in 10/15 Dr. Meyer: normal LV, no pericardial effusion (no other signif abnormality) echo 06/2018 nl LV function, mildly reduced RV function, borderline LA enlargement, mild MR, mild TR, RVSP nl, small pericardial effusion <1 cm, no echo indication of tamponade EKG 07/[address] chest: stable mesothelioma findings. no pulm edema. trace to small pleural eff (decr vs prior scan). [id number] pericardial effusion (no gross pericardial nodules/metastatic dz) tele: afib, rate controlled SOB (including bendopnea), abd distension, pericardial effusion, mesothelioma, asthma: -? h/o CHF--no details available (home meds notable for carvedilol, lasix, amlodipine for bp)--recent w/u 2017 unrevealing per pt report -CT chest without signif pulm congestion. CT and sono without ascites. -BNP 300 (no priors) -appears euvolemic on exam -echo shows small pericardial effusion with no tamponade -no clinical tamponade with normal hemodynamics - no PE on CTA - given persistent sob with no obvious etiology will give trial of iv lasix to see if some component of chf. Pt takes lasix 40 po bid at home. Will give test dose of 60 mg iv today and monitor response. - pulm following afib - patient endorses history of "irregular heartbeat" 8-10 years go while being treated for mesothelioma, was started on aspirin 81 mg daily at that time - now with pafib starting on tele 07/14 occasionally feeling palps, improving - PE ruled out, now on eliquis, [id number] score 2 - continue carvedilol, rate ok when in afib NSVT - episode noted on tele - maintain K>4.0, Mg >2.0 - nl LV function HTN: -bp controlled -cont home meds CYNDIE on CKD: -baseline creat 1.4 -initially up here, given gentle IVF in ER (? total amt)--renal fxn near baseline now
--- NOTE | 2018-07-16 13:51 | PN ---
Progress Note (short form) - Note Progress Note: PULMONARY Still with shortness of breath. No chest pain. CTA without evidence of PE. Vital Signs Period Temp Pulse Resp BP Sys/Clements Pulse Ox Last 24 Hr 97.3 F-97.9 F 73-108 18-18 105-151/66-96 94-99 Intake & Output 07/13/18 07/14/18 07/15/18 07/16/18 23:59 23:59 23:59 23:59 Intake Total 199 1422 1150 Output Total 1250 750 Balance 199 172 400 Weight 95.708 kg Gen: mildly tachypneic with speaking Heart: RRR Lung: distant breath sounds Abd: soft, nontender Ext: + edema CBC, BMP 07/16/18 06:00 07/16/18 06:00 Active Medications Albuterol Sulfate (Ventolin 0.083% Nebulizer Soln -) 1 amp NEB Q4H PRN PRN Reason: SHORT OF BREATH/WHEEZING Last Admin: 07/16/18 07:11 Dose: 1 amp Amlodipine Besylate (Norvasc -) 5 mg PO DAILY [facility] Last Admin: 07/16/18 09:40 Dose: 5 mg Apixaban (Eliquis -) 5 mg PO BID [facility] Last Admin: 07/16/18 09:40 Dose: 5 mg Aspirin (Ecotrin -) 81 mg PO DAILY [facility] Last Admin: 07/16/18 09:40 Dose: 81 mg Budesonide/Formoterol Fumarate (Symbicort 80/4.5mcg -) 2 puff IH BID [facility] Last Admin: 07/16/18 09:41 Dose: 2 puff Carvedilol (Coreg -) 12.5 mg PO BID [facility] Last Admin: 07/16/18 09:40 Dose: 12.5 mg Fenofibric Acid (Trilipix -) 135 mg PO DAILY [facility] Last Admin: 07/16/18 09:41 Dose: 135 mg Folic Acid (Folic Acid -) 1 mg PO DAILY [facility] Last Admin: 07/16/18 09:40 Dose: 1 mg Insulin Aspart (Novolog Vial Sliding Scale -) 1 vial SQ TIDAC [facility]; Protocol Last Admin: 07/16/18 12:48 Dose: Not Given Methylprednisolone Sodium Succinate (Solu-Medrol -) 40 mg IVPUSH Q8H-IV [facility] Last Admin: 07/16/18 09:40 Dose: 40 mg Nystatin (Nystatin Oral Suspension -) 500,000 units PO Q6HPO [facility] Last Admin: 07/16/18 12:48 Dose: 500,000 units Tiotropium [place] (Spiriva Respimat) 2 puff IH DAILY [facility] Last Admin: 07/16/18 09:50 Dose: Not Given A/P Acute COPD Exacerbation r/o Acute Diastolic Heart Failure Mesothelioma Acute Kidney Injury HTN - continue medrol - inhaled bronchodilators - agree with lasix trial - monitor urine output, creatinine - daily weights - O2 to keep SPo2 >90% - on anticoagulation
[2018-07-16] MEDS: guaiFENesin/D-M SUGAR-FREE/ACLHOL-FREE 118 ML BOTTLE PO PRN ×2 (16:59→21:28)
[2018-07-17] MEDS: methylPREDNISolone NA SUCC 40 MG/1 ML VIAL IVPUSH SCH ×3 (01:49→20:58)
[2018-07-17] MEDS: NYSTATIN 500,000 UNITS/5 ML SUSPENSION PO SCH ×4 (01:49→17:04)
[2018-07-17] MEDS ORDERED: PT OWN MED DRAWER 7, Y5N ONE ×4 (01:53→21:57)
[2018-07-17] MEDS: INSULIN SLIDING SCALE (NOVOLOG) 1 VIAL SQ SCH ×3 (06:02→17:02)
[2018-07-17 06:22] LABS: HEMATOCRIT 35.8 % (35.4-49); HEMOGLOBIN 11.7 GM/dL (11.7-16.9); MCH 27.8 pg (25.7-33.7); MCHC 32.8 g/dl (32.0-35.9); MEAN CELL VOLUME 84.7 fl (80-96); MEAN PLT VOLUME 7.7 fl (7.5-11.1); PLATELET COUNT 363 K/MM3 (134-434); RBC 4.22 M/mm3 (4.00-5.60); RDW 15.8 % (11.9-15.9); WHITE BLOOD COUNT 18.9 K/mm3 (4.0-10.0)
[2018-07-17 07:08] LABS: ALBUMIN 3.4 g/dl (3.4-5.0); ALK PHOS 91 U/L (45-117); ANION GAP 4 MMOL/L (8-16); BILIRUBIN,TOTAL 0.3 mg/dL (0.2-1); BLOOD UREA NITROGEN 36 mg/dL (7-18); CALCIUM 8.8 mg/dL (8.5-10.1); CHLORIDE 98 mmol/L (98-107); CO2 35 mmol/L (21-32); CREATININE 1.4 mg/dL (0.55-1.3); GLUCOSE,RANDOM 138 mg/dL (74-106); MAGNESIUM 2.4 mg/dL (1.8-2.4); POTASSIUM 4.6 mmol/L (3.5-5.1); SGOT/AST 13 U/L (15-37); SGPT/ALT 48 U/L (13-61); SODIUM 138 mmol/L (136-145); TOT PROT 7.2 g/dl (6.4-8.2)
--- NOTE | 2018-07-17 09:39 | PN ---
Teaching Attending Note Name of Resident: Lesia Gandara ATTENDING PHYSICIAN STATEMENT I saw and evaluated the patient. I reviewed the resident's note and discussed the case with the resident. I agree with the resident's findings and plan as documented with exceptions below. SUBJECTIVE: Still dyspneic with exertional, overall feels unchanged, diuresing well, no new complaints. OBJECTIVE: Vital Signs Period Temp Pulse Resp BP Sys/Clements Pulse Ox Last 24 Hr 97.5 F-98.3 F 84-108 18-20 126-144/71-91 94-98 Intake & Output 07/14/18 07/15/18 07/16/18 07/17/18 23:59 23:59 23:59 23:59 Intake Total 1422 1150 240 Output Total 9751 619 2604 1000 Balance 172 400 -3610 -1000 Weight 218 lb 2 oz General: ambulating back from bathroom, mild tachypnea Chest: improved air entry today, occasional wheezing bilaterally, some use of accessory muscles of respiration Abdomen:Soft, obese, NT Extremities: no pedal edema Home Medications Medication Instructions Recorded Amlodipine Besylate [Norvasc -] 5 mg PO DAILY 08/11/17 Aspirin [Ecotrin] 81 mg PO DAILY 08/11/17 Carvedilol 12.5 mg PO DAILY 08/11/17 Fenofibrate [Lipofen] 160 mg PO DAILY 08/11/17 Folic Acid 1 mg PO DAILY 08/11/17 Furosemide [Lasix] 40 mg PO BID 08/11/17 Omeprazole Magnesium [Prilosec Otc] 20 mg PO DAILY 08/11/17 Triamcinolone 0.1% Cream 1 applic TP BID #1 applic 08/14/17 [Aristocort 0.1% Cream -] Budesonide/Formeterol Fumarate 2 inh IH DAILY 07/12/18 [SYMBICORT 80/4.5mcg -] Ipratropium/Albuterol Sulfate 4 gm IH BID 07/12/18 [Combivent Respimat Inhal [place]] Umeclidinium [place] [Incruse 1 puff IH TID 07/12/18 Ellipta] Lactobacillus Acidophilus [Bacid -] 1 each PO DAILY 07/13/18 Psyllium Husk (with Sugar) 3.4 gm PO DAILY 07/13/18 [Metamucil Packet] Active Medications Albuterol Sulfate (Ventolin 0.083% Nebulizer Soln -) 1 amp NEB Q4H PRN PRN Reason: SHORT OF BREATH/WHEEZING Last Admin: 07/16/18 20:50 Dose: 1 amp Amlodipine Besylate (Norvasc -) 5 mg PO DAILY [facility] Last Admin: 07/16/18 09:40 Dose: 5 mg Apixaban (Eliquis -) 5 mg PO BID [facility] Last Admin: 07/16/18 21:28 Dose: 5 mg Aspirin (Ecotrin -) 81 mg PO DAILY [facility] Last Admin: 07/16/18 09:40 Dose: 81 mg Budesonide/Formoterol Fumarate (Symbicort 80/4.5mcg -) 2 puff IH BID [facility] Last Admin: 07/16/18 21:28 Dose: 2 puff Carvedilol (Coreg -) 12.5 mg PO BID [facility] Last Admin: 07/16/18 21:27 Dose: 12.5 mg Fenofibric Acid (Trilipix -) 135 mg PO DAILY [facility] Last Admin: 07/16/18 09:41 Dose: 135 mg Folic Acid (Folic Acid -) 1 mg PO DAILY [facility] Last Admin: 07/16/18 09:40 Dose: 1 mg Guaifenesin (Diabetic Tussin Dm -) 5 ml PO Q4H PRN PRN Reason: COUGH Last Admin: 07/16/18 21:28 Dose: 5 ml Insulin Aspart (Novolog Vial Sliding Scale -) 1 vial SQ TIDAC [facility]; Protocol Last Admin: 07/17/18 06:02 Dose: Not Given Methylprednisolone Sodium Succinate (Solu-Medrol -) 40 mg IVPUSH Q8H-IV [facility] Last Admin: 07/17/18 01:49 Dose: 40 mg Nystatin (Nystatin Oral Suspension -) 500,000 units PO Q6HPO [facility] Last Admin: 07/17/18 05:45 Dose: 500,000 units Tiotropium [place] (Spiriva Respimat) 2 puff IH DAILY [facility] Last Admin: 07/16/18 09:50 Dose: Not Given Laboratory Results - last 24 hr 07/16/18 07/17/18 07/17/18 06:00 05:30 05:30 WBC 18.9 H RBC 4.22 Hgb 11.7 Hct 35.8 MCV 84.7 MCH 27.8 MCHC 32.8 RDW 15.8 Plt Count 363 MPV 7.7 Neutrophils % (Manual) 89.0 H Band Neutrophils % 0.0 Lymphocytes % (Manual) 7.0 L D Monocytes % (Manual) 4 D Eosinophils % (Manual) 0.0 Basophils % (Manual) 0.0 Myelocytes % (Man) 0 Promyelocytes % (Man) 0 Blast Cells % (Manual) 0 Metamyelocytes 0 Hypochromia 0 Platelet Estimate Normal Polychromasia 0 Poikilocytosis 0 Anisocytosis 0 Microcytosis 0 Macrocytosis 0 Sodium 138 Potassium 4.6 Chloride 98 Carbon Dioxide 35 H Anion Gap 4 L BUN 36 H Creatinine 1.4 H Creat Clearance w eGFR 50.40 Random Glucose 138 H Calcium 8.8 Phosphorus 4.0 Magnesium 2.4 Total Bilirubin 0.3 AST 13 L ALT 48 Alkaline Phosphatase 91 Total Protein 7.2 Albumin 3.4 ASSESSMENT AND PLAN: 67M with COPD, CHF, CKD, mesothelioma dx 2 years ago, s/p carbo/alimta with eventual POD, now on nivolumab since 12/2017 (c11 on 07/06/18), admitted with dyspnea, found with COPD exacerbation and new onset Afib (rate controlled) -Acute COPD exacerbation -New Onset Atrial fibrillation (rate controlled) -Small pericardial effusion -CYNDIE, ?Hypovolumia -Hyperglycemia, suspect steroid induced. -Mesotheliama dx 2 years ago, s/p carbo/alimta with eventual POD, now on nivolumab since 12/2017 (c11 on 07/06/18) Plan: still tachypneic with exertion Cardiology input noted, responded well to lasix. Additional trial, defer to cardiology. Follow up for additional w/u if fails to improve. monitor renal function Strict I/os, daily weights, continue current dose of solumedrol. CTA chest neg for PE, off heparin drip. 2D echo results reviewed Pulmonary/oncology input appreciated. Eliquis/Coreg/aspirin. Renal US noted. A1c noted, Diabetic diet and nutrition consult. Will need outpatient monitoring once off steroids. DVTPPX apixaban as above. Dispo pending clinical improvement, PT eval. Home oxygen needs assessment prior to d/c Plan discussed with patient in detail, all questions answered.
[2018-07-17] MEDS: FOLIC ACID 1 MG TABLET (FP) PO SCH (09:42)
[2018-07-17] MEDS: BUDESONIDE/FORMETEROL FUMARATE 80/4.5 mcg INHALER IH SCH ×2 (09:42→20:59)
[2018-07-17] MEDS: ASPIRIN COATED 81 MG TABLET.EC PO SCH (09:42)
[2018-07-17] MEDS: TIOTROPIUM BROMIDE 2.5 MCG (SPIRIVA) RESPIMAT INHALER IH SCH (09:42)
[2018-07-17] MEDS: amLODIPine BESYLATE 5 MG TABLET (FP) PO SCH (09:42)
[2018-07-17] MEDS: CARVEDILOL 12.5 MG TABLET (FP) PO SCH ×2 (09:42→20:59)
[2018-07-17] MEDS: APIXABAN 5 MG TABLET PO SCH ×2 (09:42→20:59)
[2018-07-17] MEDS: FENOFIBRIC ACID 135 MG CAP PO SCH (09:43)
[2018-07-17] MEDS ORDERED: FUROSEMIDE 40 MG/4 ML INJECTABLE VIAL IVPUSH ONE ×2 (10:36→12:40)
--- NOTE | 2018-07-17 10:38 | PN ---
Progress Note (short form) - Note Progress Note: Chief Complaint: sob History of Present Illness: shortness of breath persists. no chest pain, palps, dizziness, lightheadedness Current Medications Generic Name Dose Route Start Last Admin Trade Name Freq PRN Reason Stop Dose Admin Albuterol Sulfate 1 amp 07/12/18 15:47 07/16/18 20:50 Ventolin 0.083% Nebulizer Soln - NEB 1 amp Q4H PRN Administration SHORT OF BREATH/WHEEZING Amlodipine Besylate 5 mg 07/12/18 10:00 07/17/18 09:42 Norvasc - PO 5 mg DAILY JANINE Administration Apixaban 5 mg 07/14/18 22:00 07/17/18 09:42 Eliquis - PO 5 mg BID JANINE Administration Aspirin 81 mg 07/12/18 10:00 07/17/18 09:42 Ecotrin - PO 81 mg DAILY JANINE Administration Budesonide/Formoterol Fumarate 2 puff 07/12/18 22:00 07/17/18 09:42 Symbicort 80/4.5mcg - IH 2 puff BID JANINE Administration Carvedilol 12.5 mg 07/12/18 22:00 07/17/18 09:42 Coreg - PO 12.5 mg BID JANINE Administration Fenofibric Acid 135 mg 07/12/18 10:00 07/17/18 09:43 Trilipix - PO 135 mg DAILY JANINE Administration Folic Acid 1 mg 07/12/18 10:00 07/17/18 09:42 Folic Acid - PO 1 mg DAILY JANINE Administration Furosemide 60 mg 07/17/18 10:36 Lasix Injection - IVPUSH 07/17/18 10:37 ONCE ONE Guaifenesin 5 ml 07/16/18 13:51 07/16/18 21:28 Diabetic Tussin Dm - PO 5 ml Q4H PRN Administration COUGH Insulin Aspart 1 vial 07/15/18 11:00 07/17/18 06:02 Novolog Vial Sliding Scale - SQ Not Given TIDAC [facility] Protocol Methylprednisolone Sodium Succinate 40 mg 07/15/18 11:15 07/17/18 09:42 Solu-Medrol - IVPUSH 40 mg Q8H-IV JANINE Administration Nystatin 500,000 units 07/13/18 12:00 07/17/18 05:45 Nystatin Oral Suspension - PO 500,000 units Q6HPO JANINE Administration Tiotropium [place] 2 puff 07/12/18 11:00 07/17/18 09:42 Spiriva Respimat IH Not Given DAILY JANINE Vital Signs Period Temp Pulse Resp BP Sys/Clements Pulse Ox Last 24 Hr 97.5 F-98.3 F 84-86 18-20 131-144/73-91 98 Constitutional: Yes: Well Nourished, No Distress Eyes: No: Sclera Icterus Respiratory: Yes: CTA Bilaterally, Diminished (bases). No: Accessory Muscle Use , Rales, Wheezes Gastrointestinal: Yes: Normal Bowel Sounds, Distention. No: Hepatomegaly, Palpable Mass, Tenderness Cardiovascular: Yes: Regular Rate and Rhythm JVD: No Heart Sounds: Yes: S1, S2. No: Gallop Murmur: No: Systolic Murmur, Diastolic Murmur Extremities: No: Cool, Cyanosis Edema: trace le edema bl Peripheral Pulses: 2+ Left Carotid, 2+ Right Carotid, 2+ Left Doralis Pedis, 2+ Right Dorsalis Pedis Integumentary: No: Jaundice Neurological: Yes: Alert, Oriented (x3) Psychiatric: No: Agitated CBC, BMP 07/17/18 05:30 07/17/18 05:30 Assessment/Plan ECG: NSR, ? old AWMI (unchanged vs prior), diffuse NSST-T (mild)--slightly more pronounced vs prior echo in 10/15 Dr. Meyer: normal LV, no pericardial effusion (no other signif abnormality) echo 06/2018 nl LV function, mildly reduced RV function, borderline LA enlargement, mild MR, mild TR, RVSP nl, small pericardial effusion <1 cm, no echo indication of tamponade EKG 07/[address] chest: stable mesothelioma findings. no pulm edema. trace to small pleural eff (decr vs prior scan). [id number] pericardial effusion (no gross pericardial nodules/metastatic dz) tele: afib, rate controlled SOB (including bendopnea), abd distension, pericardial effusion, mesothelioma, asthma: -? h/o CHF--no details available (home meds notable for carvedilol, lasix, amlodipine for bp)--recent w/u 2017 unrevealing per pt report -CT chest without signif pulm congestion. CT and sono without ascites. -BNP 300 (no priors) -appears euvolemic on exam -echo shows small pericardial effusion with no tamponade -no clinical tamponade with normal hemodynamics - no PE on CTA -07/16: given persistent sob with no obvious etiology will give trial of iv lasix to see if some component of chf. Pt takes lasix 40 po bid at home. Will give test dose of 60 mg iv today and monitor response. -07/17: pt reports good amount of diuresis with lasix yesterday, will given another dose today and monitor sxs and cr tomorrow. - pulm following as well afib - patient endorses history of "irregular heartbeat" 8-10 years go while being treated for mesothelioma, was started on aspirin 81 mg daily at that time - now with pafib starting on tele 07/14 occasionally feeling palps, improving - PE ruled out, now on eliquis, [id number] score 2 - continue carvedilol, rate ok when in afib NSVT - episode noted on tele - maintain K>4.0, Mg >2.0 - nl LV function HTN: -bp controlled -cont home meds CYNDIE on CKD: -baseline creat 1.4 -initially up here, given gentle IVF in ER (? total amt)--renal fxn near baseline now
--- NOTE | 2018-07-17 11:22 | PN ---
Physical Exam: SUBJECTIVE: Patient seen and examined by me at bedside. No acute events overnight. Overall remains the same. Still feels short of breath on exertion. At bedside , patient was not on oxygen and when checking his 02, it was 94%. Responded well to Lasix with good UOP. Otherwise, denies any fever, chills, nausea, vomiting, abdominal pain, chest pain, palpitations, headaches, dizziness, acute vision changes, urinary or bladder symptoms. OBJECTIVE: Vital Signs Period Temp Pulse Resp BP Sys/Clements Pulse Ox Last 24 Hr 97.5 F-98.3 F 84-86 18-20 131-144/73-91 98 GENERAL: The patient is awake, alert, and fully oriented, in no acute distress. EYES: Sclera anicteric, conjunctiva clear. No ptosis. ENT: Moist mucous membranes. LUNGS: CTA b/l on rest. No accessory muscle use on 02 NC HEART: Irregularly irregular rhythm with regular rate. No murmurs appreciated ABDOMEN: Soft, nontender, distended, normoactive bowel sounds EXTREMITIES: No edema. Laboratory Results - last 24 hr 07/17/18 07/17/18 05:30 05:30 WBC 18.9 H RBC 4.22 Hgb 11.7 Hct 35.8 MCV 84.7 MCH 27.8 MCHC 32.8 RDW 15.8 Plt Count 363 MPV 7.7 Sodium 138 Potassium 4.6 Chloride 98 Carbon Dioxide 35 H Anion Gap 4 L BUN 36 H Creatinine 1.4 H Creat Clearance w eGFR 50.40 Random Glucose 138 H Calcium 8.8 Phosphorus 4.0 Magnesium 2.4 Total Bilirubin 0.3 AST 13 L ALT 48 Alkaline Phosphatase 91 Total Protein 7.2 Albumin 3.4 Active Medications Generic Name Dose Route Start Last Admin Trade Name Freq PRN Reason Stop Dose Admin Albuterol Sulfate 1 amp 07/12/18 15:47 07/16/18 20:50 Ventolin 0.083% Nebulizer Soln - NEB 1 amp Q4H PRN Administration SHORT OF BREATH/WHEEZING Amlodipine Besylate 5 mg 07/12/18 10:00 07/17/18 09:42 Norvasc - PO 5 mg DAILY JANINE Administration Apixaban 5 mg 07/14/18 22:00 07/17/18 09:42 Eliquis - PO 5 mg BID JANINE Administration Aspirin 81 mg 07/12/18 10:00 07/17/18 09:42 Ecotrin - PO 81 mg DAILY JANINE Administration Budesonide/Formoterol Fumarate 2 puff 07/12/18 22:00 07/17/18 09:42 Symbicort 80/4.5mcg - IH 2 puff BID JANINE Administration Carvedilol 12.5 mg 07/12/18 22:00 07/17/18 09:42 Coreg - PO 12.5 mg BID JANINE Administration Fenofibric Acid 135 mg 07/12/18 10:00 07/17/18 09:43 Trilipix - PO 135 mg DAILY JANINE Administration Folic Acid 1 mg 07/12/18 10:00 07/17/18 09:42 Folic Acid - PO 1 mg DAILY JANINE Administration Guaifenesin 5 ml 07/16/18 13:51 07/16/18 21:28 Diabetic Tussin Dm - PO 5 ml Q4H PRN Administration COUGH Insulin Aspart 1 vial 07/15/18 11:00 07/17/18 06:02 Novolog Vial Sliding Scale - SQ Not Given TIDAC [facility] Protocol Methylprednisolone Sodium Succinate 40 mg 07/15/18 11:15 07/17/18 09:42 Solu-Medrol - IVPUSH 40 mg Q8H-IV JANINE Administration Nystatin 500,000 units 07/13/18 12:00 07/17/18 05:45 Nystatin Oral Suspension - PO 500,000 units Q6HPO JANINE Administration Tiotropium [place] 2 puff 07/12/18 11:00 07/17/18 09:42 Spiriva Respimat IH Not Given DAILY JANINE ASSESSMENT/PLAN: Patient is a 67 year old male with a significant PMHx of Mesothelioma and COPD who presented for severe shortness of breath and admitted for further monitoring and management. Shortness of breath -Likely secondary to Acute COPD exacerbation w/ possible worsening Mesothelioma -CTA done and negative for PE. -Case discussed with Pulmonology who recommended to continue COPD treatment -Cardio input appreciated, patient given trial of IV lasix with good UOP and response. -Patient to receive another IV Lasix dose. -Continue Solu-medrol 40mg IVPB Q8H -Continue Spiriva and symbicort. -Nebulizers PRN -Continue with . -Will have pre and post 02 to see if patient requires oxygen at home Acute on Chronic COPD Exacerbation -Continue Solumedrol 40mg IVPB Q8H -Continue Inhalers with Symbicort and Spiriva -Continue Nebulizers PRN Acute Kidney Injury -Likely form Lasix use. -Will continue to monitor BMP Atrial Fibrillation -Continue Eliquis 5mg BID -Continue Coreg 12.5mg BID Mesothelioma (Pleural) -Possibly worsening causing worsening shortness of breath -Being followed by Oncology. -Continue nivolumab, as per oncology HTN -Controlled -Continue Coreg 12.5mg BID -Continue Amlodipine 5mg daily -Continue to monitor BP Oral Thrush -Continue swish and swallow F/E/N -No fluids -Electrolytes wnl -Sodium controlled diet Prophylaxis -Eliquis 5mg BID for DVT -No GI required Disposition -Full code -Continue to treat COPD exacerbation as patient remains short of breath Lesia Gandara [id number] Visit type - Emergency Visit Emergency Visit: Yes ED Registration Date: 07/13/18 Care time: The patient presented to the Emergency Department on the above date and was hospitalized for further evaluation of their emergent condition. - New Patient This patient is new to me today: No - Critical Care Critical Care patient: No
--- NOTE | 2018-07-17 12:40 | PN ---
Progress Note, Physician History of Present Illness: PULMONARY ALERT,LESS DYSPNEIC,-CP,+LOWER EXT EDEMA - Current Medication List Current Medications: Active Medications Albuterol Sulfate (Ventolin 0.083% Nebulizer Soln -) 1 amp NEB Q4H PRN PRN Reason: SHORT OF BREATH/WHEEZING Last Admin: 07/16/18 20:50 Dose: 1 amp Amlodipine Besylate (Norvasc -) 5 mg PO DAILY [facility] Last Admin: 07/17/18 09:42 Dose: 5 mg Apixaban (Eliquis -) 5 mg PO BID [facility] Last Admin: 07/17/18 09:42 Dose: 5 mg Aspirin (Ecotrin -) 81 mg PO DAILY [facility] Last Admin: 07/17/18 09:42 Dose: 81 mg Budesonide/Formoterol Fumarate (Symbicort 80/4.5mcg -) 2 puff IH BID [facility] Last Admin: 07/17/18 09:42 Dose: 2 puff Carvedilol (Coreg -) 12.5 mg PO BID [facility] Last Admin: 07/17/18 09:42 Dose: 12.5 mg Fenofibric Acid (Trilipix -) 135 mg PO DAILY [facility] Last Admin: 07/17/18 09:43 Dose: 135 mg Folic Acid (Folic Acid -) 1 mg PO DAILY [facility] Last Admin: 07/17/18 09:42 Dose: 1 mg Guaifenesin (Diabetic Tussin Dm -) 5 ml PO Q4H PRN PRN Reason: COUGH Last Admin: 07/16/18 21:28 Dose: 5 ml Insulin Aspart (Novolog Vial Sliding Scale -) 1 vial SQ TIDAC [facility]; Protocol Last Admin: 07/17/18 12:18 Dose: 2 units Methylprednisolone Sodium Succinate (Solu-Medrol -) 40 mg IVPUSH Q12H [facility] Nystatin (Nystatin Oral Suspension -) 500,000 units PO Q6HPO [facility] Last Admin: 07/17/18 12:18 Dose: 500,000 units Tiotropium [place] (Spiriva Respimat) 2 puff IH DAILY [facility] Last Admin: 07/17/18 09:42 Dose: Not Given - Objective Vital Signs: Vital Signs Temperature 97.8 F 07/17/18 09:40 Pulse Rate 86 07/17/18 09:40 Respiratory Rate 18 01/18/19 09:40 Blood Pressure 144/73 01/18/19 09:40 O2 Sat by Pulse Oximetry (%) 96 07/17/18 09:40 Constitutional: Yes: Well Nourished, Calm Eyes: Yes: WNL HENT: Yes: WNL, Tonsillar Exudate Cardiovascular: Yes: Regular Rate and Rhythm, S1, S2 Respiratory: Yes: Diminished Gastrointestinal: Yes: Normal Bowel Sounds, Soft Extremities: Yes: WNL Edema: Yes Labs: CBC, BMP 07/17/18 05:30 07/17/18 05:30 Problem List - Problems (1) COPD exacerbation Code(s): J44.1 - CHRONIC OBSTRUCTIVE PULMONARY DISEASE W (ACUTE) EXACERBATION (2) Shortness of breath Code(s): R06.02 - SHORTNESS OF BREATH (3) Asthma Code(s): J45.909 - UNSPECIFIED ASTHMA, UNCOMPLICATED (4) HTN (hypertension) Code(s): I10 - ESSENTIAL (PRIMARY) HYPERTENSION (5) CYNDIE (acute kidney injury) Code(s): N17.9 - ACUTE KIDNEY FAILURE, UNSPECIFIED (6) Mesothelioma (pleural) Code(s): C45.0 - MESOTHELIOMA OF [place]LEURA Assessment/Plan IMP DYSPNEA LIKELY COPD/ASTHMA EXACERBATION MESOTHELIOMA CYNDIE HTN ANEMIA CHF AFIB PLAN INHALED BRONCHODILATORS MEDROL TAPER O2 MONITOR LYTES/RENAL FUNCTION AC OUTPATIENT PULMONARY REHAB [facility] PRN DR CHAUHAN Problem List - Problems (1) COPD exacerbation Code(s): J44.1 - CHRONIC OBSTRUCTIVE PULMONARY DISEASE W (ACUTE) EXACERBATION (2) Shortness of breath Code(s): R06.02 - SHORTNESS OF BREATH (3) Asthma Code(s): J45.909 - UNSPECIFIED ASTHMA, UNCOMPLICATED (4) HTN (hypertension) Code(s): I10 - ESSENTIAL (PRIMARY) HYPERTENSION (5) CYNDIE (acute kidney injury) Code(s): N17.9 - ACUTE KIDNEY FAILURE, UNSPECIFIED (6) Mesothelioma (pleural) Code(s): C45.0 - MESOTHELIOMA OF PLEURA
--- NOTE | 2018-07-17 14:59 | PN ---
Progress Note (short form) - Note Progress Note: Patient seen and examined Remains dyspneic on minimal exertion Seen by cardiology and trial of diuretic therapy Last Vital Signs Temp Pulse Resp BP Pulse Ox 97.8 F 86 18 144/73 96 07/17/18 09:40 07/17/18 09:40 07/17/18 09:40 07/17/18 09:40 07/17/18 09:40 HEENT: WILLI[place], EOM Intact Oropharynx: No thrush, No mucositis Cor: irregular Lungs: diminished left > right Abd: Soft, Normal bowel sounds, No organomegaly,distended Ext:LE edema Skin: No rashes, Integument intact CBC, BMP 07/17/18 05:30 07/17/18 05:30 Current Medications Generic Name Dose Route Start Last Admin Trade Name Freq PRN Reason Stop Dose Admin Albuterol Sulfate 1 amp 07/12/18 15:47 07/16/18 20:50 Ventolin 0.083% Nebulizer Soln - NEB 1 amp Q4H PRN Administration SHORT OF BREATH/WHEEZING Amlodipine Besylate 5 mg 07/12/18 10:00 07/17/18 09:42 Norvasc - PO 5 mg DAILY JANINE Administration Apixaban 5 mg 07/14/18 22:00 07/17/18 09:42 Eliquis - PO 5 mg BID JANINE Administration Aspirin 81 mg 07/12/18 10:00 07/17/18 09:42 Ecotrin - PO 81 mg DAILY JANINE Administration Budesonide/Formoterol Fumarate 2 puff 07/12/18 22:00 07/17/18 09:42 Symbicort 80/4.5mcg - IH 2 puff BID JANINE Administration Carvedilol 12.5 mg 07/12/18 22:00 07/17/18 09:42 Coreg - PO 12.5 mg BID JANINE Administration Fenofibric Acid 135 mg 07/12/18 10:00 07/17/18 09:43 Trilipix - PO 135 mg DAILY JANINE Administration Folic Acid 1 mg 07/12/18 10:00 07/17/18 09:42 Folic Acid - PO 1 mg DAILY JANINE Administration Guaifenesin 5 ml 07/16/18 13:51 07/16/18 21:28 Diabetic Tussin Dm - PO 5 ml Q4H PRN Administration COUGH Insulin Aspart 1 vial 07/15/18 11:00 07/17/18 12:18 Novolog Vial Sliding Scale - SQ 2 units TIDAC JANINE Administration Protocol Methylprednisolone Sodium Succinate 40 mg 07/17/18 20:00 Solu-Medrol - IVPUSH Q12H JANINE Nystatin 500,000 units 07/13/18 12:00 07/17/18 12:18 Nystatin Oral Suspension - PO 500,000 units Q6HPO JANINE Administration Tiotropium [place] 2 puff 07/12/18 11:00 07/17/18 09:42 Spiriva Respimat IH Not Given DAILY JANINE Impression: Mesothelioma CHF A.F. S/P chemotherapy Immunotherapy Patient has gained 7 lbs from 07/13 thru 07/18 He has lower extremity edema. He is being treated for CHF. In interim, would continue to taper steroids. To continue to monitor lytes and creatinine/BUN. Currently being treated with diuretics to asses fluid overload component to his dyspnea.
[2018-07-17 17:12] VITALS: BMI 33.1
[2018-07-18] MEDS: NYSTATIN 500,000 UNITS/5 ML SUSPENSION PO SCH ×5 (00:18→23:56)
[2018-07-18] MEDS: INSULIN SLIDING SCALE (NOVOLOG) 1 VIAL SQ SCH ×3 (06:28→18:11)
[2018-07-18 08:07] LABS: BASO % 0.2 % (0-2.0); HEMATOCRIT 34.8 % (35.4-49); HEMOGLOBIN 11.5 GM/dL (11.7-16.9); LYMPH % 4.8 % (8-40); MCH 27.8 pg (25.7-33.7); MCHC 33.1 g/dl (32.0-35.9); MEAN CELL VOLUME 83.9 fl (80-96); MEAN PLT VOLUME 7.8 fl (7.5-11.1); MONO % 3.9 % (3.8-10.2); NEUT % 91.1 % (42.8-82.8); PLATELET COUNT 354 K/MM3 (134-434); RBC 4.14 M/mm3 (4.00-5.60); RDW 15.3 % (11.9-15.9); WHITE BLOOD COUNT 19.6 K/mm3 (4.0-10.0)
[2018-07-18 08:31] LABS: ALK PHOS 83 U/L (45-117); ANION GAP 8 MMOL/L (8-16); BILIRUBIN,TOTAL 0.4 mg/dL (0.2-1); BLOOD UREA NITROGEN 39 mg/dL (7-18); CALCIUM 8.3 mg/dL (8.5-10.1); CHLORIDE 100 mmol/L (98-107); CO2 32 mmol/L (21-32); CREATININE 1.3 mg/dL (0.55-1.3); GLUCOSE,RANDOM 142 mg/dL (74-106); MAGNESIUM 2.3 mg/dL (1.8-2.4); PHOSPHOROUS 4.2 mg/dL (2.5-4.9); POTASSIUM 4.6 mmol/L (3.5-5.1); SGOT/AST 11 U/L (15-37); SGPT/ALT 41 U/L (13-61); SODIUM 139 mmol/L (136-145); TOT PROT 6.4 g/dl (6.4-8.2)
[2018-07-18] MEDS ORDERED: PT OWN MED DRAWER 7, Y5N ONE ×2 (09:00→21:27)
[2018-07-18] MEDS: ASPIRIN COATED 81 MG TABLET.EC PO SCH (10:27)
[2018-07-18] MEDS: APIXABAN 5 MG TABLET PO SCH ×2 (10:27→21:33)
[2018-07-18] MEDS: amLODIPine BESYLATE 5 MG TABLET (FP) PO SCH (10:27)
[2018-07-18] MEDS: CARVEDILOL 12.5 MG TABLET (FP) PO SCH ×2 (10:27→21:33)
[2018-07-18] MEDS: FOLIC ACID 1 MG TABLET (FP) PO SCH (10:27)
[2018-07-18] MEDS: TIOTROPIUM BROMIDE 2.5 MCG (SPIRIVA) RESPIMAT INHALER IH SCH (10:28)
[2018-07-18] MEDS: methylPREDNISolone NA SUCC 40 MG/1 ML VIAL IVPUSH SCH (10:28)
[2018-07-18] MEDS: BUDESONIDE/FORMETEROL FUMARATE 80/4.5 mcg INHALER IH SCH ×2 (10:28→21:34)
[2018-07-18] MEDS: FENOFIBRIC ACID 135 MG CAP PO SCH (10:28)
[2018-07-18] MEDS ORDERED: ALBUTEROL SO4 0.083% IH SOL 2.5 MG/3 ML VIAL.NEB. NEB PRN (10:51)
[2018-07-18 11:12] LABS: ANISOCYTOSIS 0; MACROCYTOSIS 0; PLATELET ESTIMATE NORMAL
--- NOTE | 2018-07-18 11:17 | PN ---
Physical Exam: SUBJECTIVE: Patient seen and examined, intermittent dyspnea, feels anxious, has been urinating a lot, no new complaints. OBJECTIVE: Vital Signs Period Temp Pulse Resp BP Sys/Clements Pulse Ox Last 24 Hr 97.5 F-97.9 F 66-101 16-18 109-146/66-83 96 GENERAL: The patient is awake, alert, and fully oriented, no tachypnea or use of accessory muscles noted today Neck: soft, supple, no JVD Abdomen: soft, NT, ND, positive bowel sounds Extremities: trace pedal edema Chest: improved air entry, no wheezing, few basilar rales CVS: S1S2 irregular Psych: anxious Laboratory Results - last 24 hr 07/15/18 07/15/18 07/16/18 11:44 17:09 05:53 WBC RBC Hgb Hct MCV MCH MCHC RDW Plt Count MPV Absolute Neuts (auto) Neutrophils % Lymphocytes % Monocytes % Eosinophils % Basophils % Nucleated RBC % Sodium Potassium Chloride Carbon Dioxide Anion Gap BUN Creatinine Creat Clearance w eGFR POC Glucometer 244 207 161 Random Glucose Calcium Phosphorus Magnesium Total Bilirubin AST ALT Alkaline Phosphatase Total Protein Albumin 07/16/18 07/16/18 07/17/18 11:26 17:05 05:43 WBC RBC Hgb Hct MCV MCH MCHC RDW Plt Count MPV Absolute Neuts (auto) Neutrophils % Lymphocytes % Monocytes % Eosinophils % Basophils % Nucleated RBC % Sodium Potassium Chloride Carbon Dioxide Anion Gap BUN Creatinine Creat Clearance w eGFR POC Glucometer 142 212 141 Random Glucose Calcium Phosphorus Magnesium Total Bilirubin AST ALT Alkaline Phosphatase Total Protein Albumin 07/17/18 07/17/18 07/18/18 10:57 17:00 05:45 WBC RBC Hgb Hct MCV MCH MCHC RDW Plt Count MPV Absolute Neuts (auto) Neutrophils % Lymphocytes % Monocytes % Eosinophils % Basophils % Nucleated RBC % Sodium Potassium Chloride Carbon Dioxide Anion Gap BUN Creatinine Creat Clearance w eGFR POC Glucometer 217 178 151 Random Glucose Calcium Phosphorus Magnesium Total Bilirubin AST ALT Alkaline Phosphatase Total Protein Albumin 07/18/18 07/18/18 06:00 06:00 WBC 19.6 H RBC 4.14 Hgb 11.5 L Hct 34.8 L MCV 83.9 MCH 27.8 MCHC 33.1 RDW 15.3 Plt Count 354 MPV 7.8 Absolute Neuts (auto) 17.8 H Neutrophils % 91.1 H Lymphocytes % 4.8 L D Monocytes % 3.9 Eosinophils % 0.0 Basophils % 0.2 Nucleated RBC % 0 Sodium 139 Potassium 4.6 Chloride 100 Carbon Dioxide 32 Anion Gap 8 BUN 39 H Creatinine 1.3 Creat Clearance w eGFR 54.90 POC Glucometer Random Glucose 142 H Calcium 8.3 L Phosphorus 4.2 Magnesium 2.3 Total Bilirubin 0.4 AST 11 L ALT 41 Alkaline Phosphatase 83 Total Protein 6.4 Albumin 3.0 L Active Medications Generic Name Dose Route Start Last Admin Trade Name Freq PRN Reason Stop Dose Admin Albuterol Sulfate 1 amp 07/18/18 10:51 Ventolin 0.083% Nebulizer Soln - NEB Q4H PRN SHORT OF BREATH/WHEEZING Albuterol Sulfate 1 amp 07/18/18 12:00 Ventolin 0.083% Nebulizer Soln - NEB RQID JANINE Amlodipine Besylate 5 mg 07/12/18 10:00 07/18/18 10:27 Norvasc - PO 5 mg DAILY JANINE Administration Apixaban 5 mg 07/14/18 22:00 07/18/18 10:27 Eliquis - PO 5 mg BID JANINE Administration Aspirin 81 mg 07/12/18 10:00 07/18/18 10:27 Ecotrin - PO 81 mg DAILY JANINE Administration Budesonide/Formoterol Fumarate 2 puff 07/12/18 22:00 07/18/18 10:28 Symbicort 80/4.5mcg - IH 2 puff BID JANINE Administration Carvedilol 12.5 mg 07/12/18 22:00 07/18/18 10:27 Coreg - PO 12.5 mg BID [facility] Administration Fenofibric Acid 135 mg 07/12/18 10:00 07/18/18 10:28 Trilipix - PO 135 mg DAILY [facility] Administration Folic Acid 1 mg 07/12/18 10:00 07/18/18 10:27 Folic Acid - PO 1 mg DAILY [facility] Administration Guaifenesin 5 ml 07/16/18 13:51 07/16/18 21:28 Diabetic Tussin Dm - PO 5 ml Q4H PRN Administration COUGH Insulin Aspart 1 vial 07/15/18 11:00 07/18/18 06:28 Novolog Vial Sliding Scale - SQ Not Given TIDAC [facility] Protocol Methylprednisolone Sodium Succinate 40 mg 07/18/18 20:00 Solu-Medrol - IVPUSH 07/18/18 20:01 Q12H JANINE Nystatin 500,000 units 07/13/18 12:00 07/18/18 06:27 Nystatin Oral Suspension - PO 500,000 units Q6HPO JANINE Administration Prednisone 60 mg 07/19/18 10:00 Deltasone - PO DAILY JANINE Tiotropium [place] 2 puff 07/12/18 11:00 07/18/18 10:28 Spiriva Respimat IH Not Given DAILY JANINE ASSESSMENT/PLAN: 67M with COPD, CHF, CKD, mesothelioma dx 2 years ago, s/p carbo/alimta with eventual POD, now on nivolumab since 12/2017 (c11 on 07/06/18), admitted with dyspnea, found with COPD exacerbation and new onset Afib (rate controlled) -Acute COPD exacerbation -Acute diastolic Heart failure exacerbation -New Onset Atrial fibrillation (rate controlled) -Small pericardial effusion -CYNDIE, ?Hypovolumia -Hyperglycemia, suspect steroid induced. -Mesotheliama dx 2 years ago, s/p carbo/alimta with eventual POD, now on nivolumab since 12/2017 (c11 on 07/06/18) Plan: Breathing improved. responding well to lasix, weight improved. Renal function stable. Additional lasix 60 mg IV x1, continue till diuresing as tolerating by renal function. Change steroids to PO in AM. Cardiology/Pulmonary input appreciated. Additional w/u per cardiology. Strict I/Os, daily weights. CTA chest neg for PE, off heparin drip. 2D echo results reviewed Pulmonary/oncology input appreciated. Eliquis/Coreg/aspirin. Renal US noted. A1c noted, Diabetic diet and nutrition consult. Will need outpatient monitoring once off steroids. DVTPPX apixaban as above. Dispo pending clinical improvement, PT eval. Home oxygen needs assessment prior to d/c Plan discussed with patient and nursing in detail, all questions answered. Visit type - Emergency Visit Emergency Visit: Yes ED Registration Date: 07/13/18 Care time: The patient presented to the Emergency Department on the above date and was hospitalized for further evaluation of their emergent condition. - New Patient This patient is new to me today: No - Critical Care Critical Care patient: No - Discharge Referral Referred to [facility] Med P.C.: No
[2018-07-18] MEDS ORDERED: FUROSEMIDE 40 MG/4 ML INJECTABLE VIAL IVPUSH ONE (11:18)
[2018-07-18] MEDS ORDERED: FUROSEMIDE 40 MG/4 ML INJECTABLE VIAL ONE (11:26)
[2018-07-18] MEDS: ALBUTEROL SO4 0.083% IH SOL 2.5 MG/3 ML VIAL.NEB. NEB SCH ×3 (11:30→20:45)
--- NOTE | 2018-07-18 13:04 | PN ---
Progress Note (short form) - Note Progress Note: - Note Progress Note: Chief Complaint: sob History of Present Illness: shortness of breath persists. no chest pain, palps, dizziness, lightheadedness Current Medications Albuterol Sulfate (Ventolin 0.083% Nebulizer Soln -) 1 amp NEB Q4H PRN PRN Reason: SHORT OF BREATH/WHEEZING Albuterol Sulfate (Ventolin 0.083% Nebulizer Soln -) 1 amp NEB RQID [facility] Amlodipine Besylate (Norvasc -) 5 mg PO DAILY [facility] Last Admin: 07/18/18 10:27 Dose: 5 mg Apixaban (Eliquis -) 5 mg PO BID [facility] Last Admin: 07/18/18 10:27 Dose: 5 mg Aspirin (Ecotrin -) 81 mg PO DAILY [facility] Last Admin: 07/18/18 10:27 Dose: 81 mg Budesonide/Formoterol Fumarate (Symbicort 80/4.5mcg -) 2 puff IH BID [facility] Last Admin: 07/18/18 10:28 Dose: 2 puff Carvedilol (Coreg -) 12.5 mg PO BID [facility] Last Admin: 07/18/18 10:27 Dose: 12.5 mg Fenofibric Acid (Trilipix -) 135 mg PO DAILY [facility] Last Admin: 07/18/18 10:28 Dose: 135 mg Folic Acid (Folic Acid -) 1 mg PO DAILY [facility] Last Admin: 07/18/18 10:27 Dose: 1 mg Guaifenesin (Diabetic Tussin Dm -) 5 ml PO Q4H PRN PRN Reason: COUGH Last Admin: 07/16/18 21:28 Dose: 5 ml Insulin Aspart (Novolog Vial Sliding Scale -) 1 vial SQ TIDAC [facility]; Protocol Last Admin: 07/18/18 12:23 Dose: Not Given Methylprednisolone Sodium Succinate (Solu-Medrol -) 40 mg IVPUSH Q12H [facility] Stop: 07/18/18 20:01 Nystatin (Nystatin Oral Suspension -) 500,000 units PO Q6HPO [facility] Last Admin: 07/18/18 12:23 Dose: 500,000 units Prednisone (Deltasone -) 60 mg PO DAILY [facility] Tiotropium [place] (Spiriva Respimat) 2 puff IH DAILY [facility] Last Admin: 07/18/18 10:28 Dose: Not Given Vital Signs Period Temp Pulse Resp BP Sys/Clements Pulse Ox Last 24 Hr 97.5 F-97.9 F 66-101 16-18 109-146/66-83 96 Constitutional: Yes: Well Nourished, No Distress Eyes: No: Sclera Icterus Respiratory: Yes: CTA Bilaterally, Diminished (bases). No: Accessory Muscle Use , Rales, Wheezes Gastrointestinal: Yes: Normal Bowel Sounds, Distention. No: Hepatomegaly, Palpable Mass, Tenderness Cardiovascular: Yes: Regular Rate and Rhythm JVD: No Heart Sounds: Yes: S1, S2. No: Gallop Murmur: No: Systolic Murmur, Diastolic Murmur Extremities: No: Cool, Cyanosis Edema: trace le edema bl Peripheral Pulses: 2+ Left Carotid, 2+ Right Carotid, 2+ Left Doralis Pedis, 2+ Right Dorsalis Pedis Integumentary: No: Jaundice Neurological: Yes: Alert, Oriented (x3) Psychiatric: No: Agitated CBC, BMP 07/17/18 05:30 07/17/18 05:30 Assessment/Plan ECG: NSR, ? old AWMI (unchanged vs prior), diffuse NSST-T (mild)--slightly more pronounced vs prior echo in 10/15 Dr. Meyer: normal LV, no pericardial effusion (no other signif abnormality) echo 06/2018 nl LV function, mildly reduced RV function, borderline LA enlargement, mild MR, mild TR, RVSP nl, small pericardial effusion <1 cm, no echo indication of tamponade EKG 07/[address] chest: stable mesothelioma findings. no pulm edema. trace to small pleural eff (decr vs prior scan). [id number] pericardial effusion (no gross pericardial nodules/metastatic dz) tele: afib, rate controlled SOB (including bendopnea), abd distension, pericardial effusion, mesothelioma, asthma: -? h/o CHF--no details available (home meds notable for carvedilol, lasix, amlodipine for bp)--recent w/u 2017 unrevealing per pt report -CT chest without signif pulm congestion. CT and sono without ascites. -BNP 300 (no priors) -appears euvolemic on exam -echo shows small pericardial effusion with no tamponade -no clinical tamponade with normal hemodynamics - no PE on CTA -07/16: given persistent sob with no obvious etiology will give trial of iv lasix to see if some component of chf. Pt takes lasix 40 po bid at home. Will give test dose of 60 mg iv today and monitor response. -07/17: pt reports good amount of diuresis with lasix yesterday,received additional dose - 07/18 stable Cr, improved symptoms. received additional lasix 60 mg IV this morning, monitor Cr, lytes daily weight - pulm following as well afib - patient endorses history of "irregular heartbeat" 8-10 years go while being treated for mesothelioma, was started on aspirin 81 mg daily at that time - now with pafib starting on tele 07/14 occasionally feeling palps, improving - PE ruled out, now on eliquis, [id number] score 2 - continue carvedilol, rate ok when in afib NSVT - episode noted on tele - maintain K>4.0, Mg >2.0 - nl LV function HTN: -bp controlled -cont home meds CYNDIE on CKD: -baseline creat 1.4 -initially up here, given gentle IVF in ER (? total amt)--renal fxn near baseline now
--- NOTE | 2018-07-18 13:51 | PN ---
Progress Note (short form) - Note Progress Note: Patient seen in follow up. No new complaints. No significant events overnight. More dyspneic this morning but feeling better now. Inpatient Meds reviewed. Current Medications Generic Name Dose Route Start Last Admin Trade Name Freq PRN Reason Stop Dose Admin Albuterol Sulfate 1 amp 07/18/18 10:51 Ventolin 0.083% Nebulizer Soln - NEB Q4H PRN SHORT OF BREATH/WHEEZING Albuterol Sulfate 1 amp 07/18/18 12:00 07/18/18 11:30 Ventolin 0.083% Nebulizer Soln - NEB 1 amp RQID JANINE Administration Amlodipine Besylate 5 mg 07/12/18 10:00 07/18/18 10:27 Norvasc - PO 5 mg DAILY JANINE Administration Apixaban 5 mg 07/14/18 22:00 07/18/18 10:27 Eliquis - PO 5 mg BID JANINE Administration Aspirin 81 mg 07/12/18 10:00 07/18/18 10:27 Ecotrin - PO 81 mg DAILY JANINE Administration Budesonide/Formoterol Fumarate 2 puff 07/12/18 22:00 07/18/18 10:28 Symbicort 80/4.5mcg - IH 2 puff BID JANINE Administration Carvedilol 12.5 mg 07/12/18 22:00 07/18/18 10:27 Coreg - PO 12.5 mg BID JANINE Administration Fenofibric Acid 135 mg 07/12/18 10:00 07/18/18 10:28 Trilipix - PO 135 mg DAILY JANINE Administration Folic Acid 1 mg 07/12/18 10:00 07/18/18 10:27 Folic Acid - PO 1 mg DAILY JANINE Administration Guaifenesin 5 ml 07/16/18 13:51 07/16/18 21:28 Diabetic Tussin Dm - PO 5 ml Q4H PRN Administration COUGH Insulin Aspart 1 vial 07/15/18 11:00 07/18/18 12:23 Novolog Vial Sliding Scale - SQ Not Given TIDAC [facility] Protocol Methylprednisolone Sodium Succinate 40 mg 07/18/18 20:00 Solu-Medrol - IVPUSH 07/18/18 20:01 Q12H JANINE Nystatin 500,000 units 07/13/18 12:00 07/18/18 12:23 Nystatin Oral Suspension - PO 500,000 units Q6HPO JANINE Administration Prednisone 60 mg 07/19/18 10:00 Deltasone - PO DAILY JANINE Tiotropium [place] 2 puff 07/12/18 11:00 07/18/18 10:28 Spiriva Respimat IH Not Given DAILY JANINE On Examination: Last Vital Signs Temp Pulse Resp BP Pulse Ox 98.2 F 88 18 116/58 L 96 07/18/18 10:00 07/18/18 10:00 07/18/18 10:00 07/18/18 10:00 07/18/18 10:00 General: In no acute distress, sitting side of bed. Extremities: No pallor or icterus. Mild bilateral pedal edema. No palpable lymphadenopathy. CVS: S1, S2, regular, no gallop or murmur. Chest: good air entry bilaterally, ?some crackles L base, otherwise clear. Abdomen: Non-distended, non-tender, no palpable organomegaly. Neuro: Alert, oriented, non-focal. Labs: CBC, BMP 07/18/18 06:00 07/18/18 06:00 Assessment. Malignant mesothelioma, with stable disease on immunotherapy, admitted now with recent deterioration is respiratory status, attributed to fluid overload, with some improvement with diuresis. cardiology following - paradoxical AF noted - on apixaban. Rate controlled. Continue diuresis, until dry weight. BUN/creat elevated, but stable.
--- NOTE | 2018-07-18 15:48 | PN ---
Progress Note (short form) - Note Progress Note: PULMONARY Breathing slowly improving. Vital Signs Period Temp Pulse Resp BP Sys/Clements Pulse Ox Last 24 Hr 97.5 F-98.2 F 66-101 16-18 109-146/58-83 96-96 Gen: mildly tachypneic with speaking Heart: RRR Lung: distant breath sounds Abd: soft, nontender Ext: + edema CBC, BMP 07/18/18 06:00 07/18/18 06:00 Active Medications Albuterol Sulfate (Ventolin 0.083% Nebulizer Soln -) 1 amp NEB Q4H PRN PRN Reason: SHORT OF BREATH/WHEEZING Albuterol Sulfate (Ventolin 0.083% Nebulizer Soln -) 1 amp NEB RQID [facility] Last Admin: 07/18/18 11:30 Dose: 1 amp Amlodipine Besylate (Norvasc -) 5 mg PO DAILY [facility] Last Admin: 07/18/18 10:27 Dose: 5 mg Apixaban (Eliquis -) 5 mg PO BID [facility] Last Admin: 07/18/18 10:27 Dose: 5 mg Aspirin (Ecotrin -) 81 mg PO DAILY [facility] Last Admin: 07/18/18 10:27 Dose: 81 mg Budesonide/Formoterol Fumarate (Symbicort 80/4.5mcg -) 2 puff IH BID [facility] Last Admin: 07/18/18 10:28 Dose: 2 puff Carvedilol (Coreg -) 12.5 mg PO BID [facility] Last Admin: 07/18/18 10:27 Dose: 12.5 mg Fenofibric Acid (Trilipix -) 135 mg PO DAILY [facility] Last Admin: 07/18/18 10:28 Dose: 135 mg Folic Acid (Folic Acid -) 1 mg PO DAILY [facility] Last Admin: 07/18/18 10:27 Dose: 1 mg Guaifenesin (Diabetic Tussin Dm -) 5 ml PO Q4H PRN PRN Reason: COUGH Last Admin: 07/16/18 21:28 Dose: 5 ml Insulin Aspart (Novolog Vial Sliding Scale -) 1 vial SQ TIDAC [facility]; Protocol Last Admin: 07/18/18 12:23 Dose: Not Given Methylprednisolone Sodium Succinate (Solu-Medrol -) 40 mg IVPUSH Q12H [facility] Stop: 07/18/18 20:01 Nystatin (Nystatin Oral Suspension -) 500,000 units PO Q6HPO [facility] Last Admin: 07/18/18 12:23 Dose: 500,000 units Prednisone (Deltasone -) 60 mg PO DAILY [facility] Tiotropium [place] (Spiriva Respimat) 2 puff IH DAILY [facility] Last Admin: 07/18/18 10:28 Dose: Not Given A/P Acute COPD Exacerbation r/o Acute Diastolic Heart Failure Mesothelioma Acute Kidney Injury HTN - prednisone taper - inhaled bronchodilators - continue lasix as needed - monitor urine output, creatinine - daily weights - O2 to keep SPo2 >90% - on anticoagulation
[2018-07-18] MEDS ORDERED: methylPREDNISolone NA SUCC 40 MG/1 ML VIAL IVPUSH SCH (20:00)
[2018-07-19] MEDS: INSULIN SLIDING SCALE (NOVOLOG) 1 VIAL SQ SCH ×3 (06:14→17:42)
[2018-07-19] MEDS: NYSTATIN 500,000 UNITS/5 ML SUSPENSION PO SCH ×5 (06:14→23:19)
[2018-07-19 06:20] LABS: BASO % 0.3 % (0-2.0); HEMATOCRIT 36.1 % (35.4-49); HEMOGLOBIN 11.9 GM/dL (11.7-16.9); LYMPH % 4.4 % (8-40); MEAN CELL VOLUME 84.9 fl (80-96); MEAN PLT VOLUME 7.8 fl (7.5-11.1); MONO % 3.5 % (3.8-10.2); NEUT % 91.8 % (42.8-82.8); PLATELET COUNT 366 K/MM3 (134-434); RBC 4.25 M/mm3 (4.00-5.60); RDW 15.6 % (11.9-15.9); WHITE BLOOD COUNT 18.9 K/mm3 (4.0-10.0)
[2018-07-19 07:02] LABS: ANION GAP 5 MMOL/L (8-16); BLOOD UREA NITROGEN 41 mg/dL (7-18); CHLORIDE 97 mmol/L (98-107); CO2 37 mmol/L (21-32); CREATININE 1.4 mg/dL (0.55-1.3); GLUCOSE,RANDOM 148 mg/dL (74-106); MAGNESIUM 2.7 mg/dL (1.8-2.4); PHOSPHOROUS 4.8 mg/dL (2.5-4.9); POTASSIUM 4.8 mmol/L (3.5-5.1); SODIUM 138 mmol/L (136-145)
[2018-07-19] MEDS: ALBUTEROL SO4 0.083% IH SOL 2.5 MG/3 ML VIAL.NEB. NEB SCH ×4 (09:10→20:37)
[2018-07-19] MEDS ORDERED: PT OWN MED DRAWER 7, Y5N ONE (09:12)
[2018-07-19] MEDS: FENOFIBRIC ACID 135 MG CAP PO SCH (09:35)
[2018-07-19] MEDS: amLODIPine BESYLATE 5 MG TABLET (FP) PO SCH (09:35)
[2018-07-19] MEDS: APIXABAN 5 MG TABLET PO SCH ×2 (09:35→22:35)
[2018-07-19] MEDS: ASPIRIN COATED 81 MG TABLET.EC PO SCH (09:35)
[2018-07-19] MEDS: predniSONE 20 MG TABLET (UD) PO SCH (09:36)
[2018-07-19] MEDS: CARVEDILOL 12.5 MG TABLET (FP) PO SCH ×2 (09:36→22:35)
[2018-07-19] MEDS: FOLIC ACID 1 MG TABLET (FP) PO SCH (09:37)
[2018-07-19] MEDS: BUDESONIDE/FORMETEROL FUMARATE 80/4.5 mcg INHALER IH SCH ×2 (09:38→22:35)
[2018-07-19] MEDS: TIOTROPIUM BROMIDE 2.5 MCG (SPIRIVA) RESPIMAT INHALER IH SCH (09:39)
--- NOTE | 2018-07-19 10:03 | PN ---
Physical Exam: SUBJECTIVE: Patient seen and examined, breathing improved, still short of breath with activity, urinating well. OBJECTIVE: Vital Signs Period Temp Pulse Resp BP Sys/Clements Pulse Ox Last 24 Hr 97.4 F-98.3 F 78-87 18-20 105-124/65-85 100 GENERAL: The patient is awake, alert, and fully oriented, in no acute distress. HEAD: Normal with no signs of trauma. EYES: PERRL, extraocular movements intact, sclera anicteric, conjunctiva clear. No ptosis. ENT: Ears normal, nares patent, oropharynx clear without exudates, moist mucous membranes. NECK: Trachea midline, full range of motion, supple. LUNGS: improved air entry, no rales or wheezing appreciated. HEART:S1S2 irregularly irregular ABDOMEN: Soft, nontender, nondistended, normoactive bowel sounds, no guarding, no rebound EXTREMITIES:1+ pedal edema, improved PSYCH: Mildly anxious SKIN: Warm, dry, normal turgor, no rashes or lesions noted Laboratory Results - last 24 hr 07/18/18 07/18/18 07/18/18 06:00 12:09 17:30 WBC RBC Hgb Hct MCV MCH MCHC RDW Plt Count MPV Absolute Neuts (auto) Neutrophils % Neutrophils % (Manual) 82.0 Band Neutrophils % 0.0 Lymphocytes % Lymphocytes % (Manual) 12.0 D Monocytes % Monocytes % (Manual) 4 Eosinophils % Eosinophils % (Manual) 0.0 Basophils % Basophils % (Manual) 0.0 Myelocytes % (Man) 0 Promyelocytes % (Man) 0 Blast Cells % (Manual) 0 Nucleated RBC % 0 Metamyelocytes 0 Hypochromia 0 Platelet Estimate Normal Polychromasia 0 Poikilocytosis 0 Basophilic Stippling 1+ Anisocytosis 0 Microcytosis 0 Macrocytosis 0 Fragmented RBCs 1+ Sodium Potassium Chloride Carbon Dioxide Anion Gap BUN Creatinine Creat Clearance w eGFR POC Glucometer 145 156 Random Glucose Calcium Phosphorus Magnesium 07/19/18 07/19/18 07/19/18 05:25 05:25 06:12 WBC 18.9 H RBC 4.25 Hgb 11.9 Hct 36.1 MCV 84.9 MCH 28.0 MCHC 33.0 RDW 15.6 Plt Count 366 MPV 7.8 Absolute Neuts (auto) 17.3 H Neutrophils % 91.8 H Neutrophils % (Manual) Band Neutrophils % Lymphocytes % 4.4 L Lymphocytes % (Manual) Monocytes % 3.5 L Monocytes % (Manual) Eosinophils % 0.0 Eosinophils % (Manual) Basophils % 0.3 Basophils % (Manual) Myelocytes % (Man) Promyelocytes % (Man) Blast Cells % (Manual) Nucleated RBC % 0 Metamyelocytes Hypochromia Platelet Estimate Polychromasia Poikilocytosis Basophilic Stippling Anisocytosis Microcytosis Macrocytosis Fragmented RBCs Sodium 138 Potassium 4.8 Chloride 97 L Carbon Dioxide 37 H Anion Gap 5 L BUN 41 H Creatinine 1.4 H Creat Clearance w eGFR 50.40 POC Glucometer 135 Random Glucose 148 H Calcium 9.0 Phosphorus 4.8 Magnesium 2.7 H Active Medications Generic Name Dose Route Start Last Admin Trade Name Freq PRN Reason Stop Dose Admin Albuterol Sulfate 1 amp 07/18/18 10:51 Ventolin 0.083% Nebulizer Soln - NEB Q4H PRN SHORT OF BREATH/WHEEZING Albuterol Sulfate 1 amp 07/18/18 12:00 07/19/18 09:10 Ventolin 0.083% Nebulizer Soln - NEB 1 amp RQID JANINE Administration Amlodipine Besylate 5 mg 07/12/18 10:00 07/19/18 09:35 Norvasc - PO 5 mg DAILY JANINE Administration Apixaban 5 mg 07/14/18 22:00 07/19/18 09:35 Eliquis - PO 5 mg BID JANINE Administration Aspirin 81 mg 07/12/18 10:00 07/19/18 09:35 Ecotrin - PO 81 mg DAILY JANINE Administration Budesonide/Formoterol Fumarate 2 puff 07/12/18 22:00 07/19/18 09:38 Symbicort 80/4.5mcg - IH 2 puff BID JANINE Administration Carvedilol 12.5 mg 07/12/18 22:00 07/19/18 09:36 Coreg - PO 12.5 mg BID JANINE Administration Fenofibric Acid 135 mg 07/12/18 10:00 07/18/18 10:28 Trilipix - PO 135 mg DAILY JAINNE Administration Folic Acid 1 mg 07/12/18 10:00 07/19/18 09:37 Folic Acid - PO 1 mg DAILY JANINE Administration Guaifenesin 5 ml 07/16/18 13:51 07/16/18 21:28 Diabetic Tussin Dm - PO 5 ml Q4H PRN Administration COUGH Insulin Aspart 1 vial 07/15/18 11:00 07/19/18 06:14 Novolog Vial Sliding Scale - SQ Not Given TIDAC [facility] Protocol Nystatin 500,000 units 07/13/18 12:00 07/19/18 06:14 Nystatin Oral Suspension - PO 500,000 units Q6HPO JANINE Administration Prednisone 60 mg 07/19/18 10:00 07/19/18 09:36 Deltasone - PO 60 mg DAILY JANINE Administration Tiotropium [place] 2 puff 07/12/18 11:00 07/19/18 09:39 Spiriva Respimat IH Not Given DAILY JANINE ASSESSMENT/PLAN: 67M with COPD, CHF, CKD, mesothelioma dx 2 years ago, s/p carbo/alimta with eventual POD, now on nivolumab since 12/2017 (c11 on 07/06/18), admitted with dyspnea, found with COPD exacerbation and new onset Afib (rate controlled) -Acute COPD exacerbation -Acute diastolic Heart failure exacerbation -New Onset Atrial fibrillation (rate controlled) -Small pericardial effusion -CYNDIE, ?Hypovolumia -Hyperglycemia, suspect steroid induced. -Leucocytosis, suspect steroid induced -Mesotheliama dx 2 years ago, s/p carbo/alimta with eventual POD, now on nivolumab since 12/2017 (c11 on 07/06/18) Plan: Breathing improved. responding well to lasix, weight improved. Mild bump in BUN/Cr. Hold off additional lasix today, start PO lasix in AM if renal function stable. Change to PO steroids, standing and prn nebs. Cardiology/Pulmonary input appreciated. Additional ischemia w/u per cardiology. Strict I/Os, daily weights. CTA chest neg for PE, off heparin drip. 2D echo results reviewed Pulmonary/oncology input appreciated. Eliquis/Coreg/aspirin. Renal US noted. A1c noted, Diabetic diet and nutrition consult. Will need outpatient monitoring once off steroids. DVTPPX apixaban as above. Dispo pending clinical improvement, PT eval. Home oxygen needs assessment in 24 hours. Dispo planning in 1-2 days if continues to improve Plan discussed with patient and nursing in detail, all questions answered. Visit type - Emergency Visit Emergency Visit: Yes ED Registration Date: 07/13/18 Care time: The patient presented to the Emergency Department on the above date and was hospitalized for further evaluation of their emergent condition. - New Patient This patient is new to me today: No - Critical Care Critical Care patient: No - Discharge Referral Referred to [facility] No
[2018-07-19 10:34] LABS: PLATELET ESTIMATE ADEQUATE
--- NOTE | 2018-07-19 10:38 | PN ---
Progress Note (short form) - Note Progress Note: Chief Complaint: sob History of Present Illness: sob and edema improving, no chest pain, palps, dizziness, lightheadedness Current Medications Albuterol Sulfate (Ventolin 0.083% Nebulizer Soln -) 1 amp NEB Q4H PRN PRN Reason: SHORT OF BREATH/WHEEZING Albuterol Sulfate (Ventolin 0.083% Nebulizer Soln -) 1 amp NEB RQID [facility] Last Admin: 07/19/18 09:10 Dose: 1 amp Amlodipine Besylate (Norvasc -) 5 mg PO DAILY [facility] Last Admin: 07/19/18 09:35 Dose: 5 mg Apixaban (Eliquis -) 5 mg PO BID [facility] Last Admin: 07/19/18 09:35 Dose: 5 mg Aspirin (Ecotrin -) 81 mg PO DAILY [facility] Last Admin: 07/19/18 09:35 Dose: 81 mg Budesonide/Formoterol Fumarate (Symbicort 80/4.5mcg -) 2 puff IH BID [facility] Last Admin: 07/19/18 09:38 Dose: 2 puff Carvedilol (Coreg -) 12.5 mg PO BID [facility] Last Admin: 07/19/18 09:36 Dose: 12.5 mg Fenofibric Acid (Trilipix -) 135 mg PO DAILY [facility] Last Admin: 07/18/18 10:28 Dose: 135 mg Folic Acid (Folic Acid -) 1 mg PO DAILY [facility] Last Admin: 07/19/18 09:37 Dose: 1 mg Guaifenesin (Diabetic Tussin Dm -) 5 ml PO Q4H PRN PRN Reason: COUGH Last Admin: 07/16/18 21:28 Dose: 5 ml Insulin Aspart (Novolog Vial Sliding Scale -) 1 vial SQ TIDAC [facility]; Protocol Last Admin: 07/19/18 06:14 Dose: Not Given Nystatin (Nystatin Oral Suspension -) 500,000 units PO Q6HPO [facility] Last Admin: 07/19/18 06:14 Dose: 500,000 units Prednisone (Deltasone -) 60 mg PO DAILY [facility] Last Admin: 07/19/18 09:36 Dose: 60 mg Tiotropium [place] (Spiriva Respimat) 2 puff IH DAILY [facility] Last Admin: 07/19/18 09:39 Dose: Not Given Vital Signs Period Temp Pulse Resp BP Sys/Clements Pulse Ox Last 24 Hr 97.4 F-98.3 F 78-87 18-20 105-124/65-85 100 Constitutional: Yes: Well Nourished, No Distress Eyes: No: Sclera Icterus Respiratory: Yes: CTA Bilaterally, Diminished (bases). No: Accessory Muscle Use , Rales, Wheezes Gastrointestinal: Yes: Normal Bowel Sounds, Distention. No: Hepatomegaly, Palpable Mass, Tenderness Cardiovascular: Yes: Regular Rate and Rhythm JVD: No Heart Sounds: Yes: S1, S2. No: Gallop Murmur: No: Systolic Murmur, Diastolic Murmur Extremities: No: Cool, Cyanosis Edema: trace le edema bl Peripheral Pulses: 2+ Left Carotid, 2+ Right Carotid, 2+ Left Doralis Pedis, 2+ Right Dorsalis Pedis Integumentary: No: Jaundice Neurological: Yes: Alert, Oriented (x3) Psychiatric: No: Agitated Assessment/Plan ECG: NSR, ? old AWMI (unchanged vs prior), diffuse NSST-T (mild)--slightly more pronounced vs prior echo in 10/15 Dr. Meyer: normal LV, no pericardial effusion (no other signif abnormality) echo 06/2018 nl LV function, mildly reduced RV function, borderline LA enlargement, mild MR, mild TR, RVSP nl, small pericardial effusion <1 cm, no echo indication of tamponade EKG 07/[address] chest: stable mesothelioma findings. no pulm edema. trace to small pleural eff (decr vs prior scan). [id number] pericardial effusion (no gross pericardial nodules/metastatic dz) tele: afib, rate controlled SOB (including bendopnea), abd distension, pericardial effusion, mesothelioma, asthma: -? h/o CHF--no details available (home meds notable for carvedilol, lasix, amlodipine for bp)--recent w/u 2017 unrevealing per pt report -CT chest without signif pulm congestion. CT and sono without ascites. -BNP 300 (no priors) -appears euvolemic on exam -echo shows small pericardial effusion with no tamponade -no clinical tamponade with normal hemodynamics - no PE on CTA -07/16: given persistent sob with no obvious etiology will give trial of iv lasix to see if some component of chf. Pt takes lasix 40 po bid at home. Will give test dose of 60 mg iv today and monitor response. -07/17: pt reports good amount of diuresis with lasix yesterday,received additional dose - 07/18 stable Cr, improved symptoms. received additional lasix 60 mg IV this morning, monitor Cr, lytes daily weight - 07/19 Cr rising, agree with holding lasix today, sob and edema improving - pulm following as well afib - patient endorses history of "irregular heartbeat" 8-10 years go while being treated for mesothelioma, was started on aspirin 81 mg daily at that time - now with pafib starting on tele 07/14 occasionally feeling palps, improving - PE ruled out, now on eliquis, [id number] score 2 - continue carvedilol, rate ok when in afib NSVT - episode noted on tele - maintain K>4.0, Mg >2.0 - nl LV function HTN: -bp controlled -cont home meds CYNDIE on CKD: -baseline creat 1.4 -initially up here, given gentle IVF in ER (? total amt)--renal fxn near baseline now
--- NOTE | 2018-07-19 12:47 | PN ---
Progress Note (short form) - Note Progress Note: PULMONARY Breathing slowly improving. Less coughing. Vital Signs Period Temp Pulse Resp BP Sys/Clements Pulse Ox Last 24 Hr 97.4 F-98.3 F 78-87 18-20 105-124/65-85 100 Gen: less tachypneic with speaking Heart: RRR Lung: distant breath sounds Abd: soft, nontender Ext: less edema CBC, BMP 07/19/18 05:25 07/19/18 05:25 Active Medications Albuterol Sulfate (Ventolin 0.083% Nebulizer Soln -) 1 amp NEB Q4H PRN PRN Reason: SHORT OF BREATH/WHEEZING Albuterol Sulfate (Ventolin 0.083% Nebulizer Soln -) 1 amp NEB RQID [facility] Last Admin: 07/19/18 09:10 Dose: 1 amp Amlodipine Besylate (Norvasc -) 5 mg PO DAILY [facility] Last Admin: 07/19/18 09:35 Dose: 5 mg Apixaban (Eliquis -) 5 mg PO BID [facility] Last Admin: 07/19/18 09:35 Dose: 5 mg Aspirin (Ecotrin -) 81 mg PO DAILY [facility] Last Admin: 07/19/18 09:35 Dose: 81 mg Budesonide/Formoterol Fumarate (Symbicort 80/4.5mcg -) 2 puff IH BID [facility] Last Admin: 07/19/18 09:38 Dose: 2 puff Carvedilol (Coreg -) 12.5 mg PO BID [facility] Last Admin: 07/19/18 09:36 Dose: 12.5 mg Fenofibric Acid (Trilipix -) 135 mg PO DAILY [facility] Last Admin: 07/19/18 09:35 Dose: 135 mg Folic Acid (Folic Acid -) 1 mg PO DAILY [facility] Last Admin: 07/19/18 09:37 Dose: 1 mg Guaifenesin (Diabetic Tussin Dm -) 5 ml PO Q4H PRN PRN Reason: COUGH Last Admin: 07/16/18 21:28 Dose: 5 ml Insulin Aspart (Novolog Vial Sliding Scale -) 1 vial SQ TIDAC [facility]; Protocol Last Admin: 07/19/18 12:15 Dose: Not Given Nystatin (Nystatin Oral Suspension -) 500,000 units PO Q6HPO [facility] Last Admin: 07/19/18 12:35 Dose: 500,000 units Prednisone (Deltasone -) 60 mg PO DAILY [facility] Last Admin: 07/19/18 09:36 Dose: 60 mg Tiotropium [place] (Spiriva Respimat) 2 puff IH DAILY [facility] Last Admin: 07/19/18 09:39 Dose: Not Given A/P Acute COPD Exacerbation r/o Acute Diastolic Heart Failure Mesothelioma Acute Kidney Injury HTN - prednisone taper - inhaled bronchodilators - continue lasix as needed - monitor urine output, creatinine - daily weights - O2 to keep SPo2 >90% - on anticoagulation
--- NOTE | 2018-07-19 13:36 | PN ---
Progress Note (short form) - Note Progress Note: Patient seen in follow up. No new complaints. No significant events overnight. Sleeping comfortably, flat. Breathing subjectively improved Inpatient Meds reviewed. Current Medications Albuterol Sulfate (Ventolin 0.083% Nebulizer Soln -) 1 amp NEB Q4H PRN PRN Reason: SHORT OF BREATH/WHEEZING Albuterol Sulfate (Ventolin 0.083% Nebulizer Soln -) 1 amp NEB RQID [facility] Last Admin: 07/19/18 09:10 Dose: 1 amp Amlodipine Besylate (Norvasc -) 5 mg PO DAILY [facility] Last Admin: 07/19/18 09:35 Dose: 5 mg Apixaban (Eliquis -) 5 mg PO BID [facility] Last Admin: 07/19/18 09:35 Dose: 5 mg Aspirin (Ecotrin -) 81 mg PO DAILY [facility] Last Admin: 07/19/18 09:35 Dose: 81 mg Budesonide/Formoterol Fumarate (Symbicort 80/4.5mcg -) 2 puff IH BID [facility] Last Admin: 07/19/18 09:38 Dose: 2 puff Carvedilol (Coreg -) 12.5 mg PO BID [facility] Last Admin: 07/19/18 09:36 Dose: 12.5 mg Fenofibric Acid (Trilipix -) 135 mg PO DAILY [facility] Last Admin: 07/19/18 09:35 Dose: 135 mg Folic Acid (Folic Acid -) 1 mg PO DAILY [facility] Last Admin: 07/19/18 09:37 Dose: 1 mg Guaifenesin (Diabetic Tussin Dm -) 5 ml PO Q4H PRN PRN Reason: COUGH Last Admin: 07/16/18 21:28 Dose: 5 ml Insulin Aspart (Novolog Vial Sliding Scale -) 1 vial SQ TIDAC [facility]; Protocol Last Admin: 07/19/18 12:15 Dose: Not Given Nystatin (Nystatin Oral Suspension -) 500,000 units PO Q6HPO [facility] Last Admin: 07/19/18 12:35 Dose: 500,000 units Prednisone (Deltasone -) 60 mg PO DAILY [facility] Last Admin: 07/19/18 09:36 Dose: 60 mg Tiotropium [place] (Spiriva Respimat) 2 puff IH DAILY [facility] Last Admin: 07/19/18 09:39 Dose: Not Given On Examination: Last Vital Signs Temp Pulse Resp BP Pulse Ox 98.2 F 80 18 124/78 100 07/19/18 10:00 07/19/18 10:00 07/19/18 10:00 07/19/18 10:00 07/19/18 09:00 General: In no acute distress.. Extremities: No pallor or icterus. Mild bilateral pedal edema, improved since yesterday. No palpable lymphadenopathy. CVS: S1, S2, regular, no gallop or murmur. Chest: good air entry bilaterally, clear. Abdomen: Non-distended, non-tender, no palpable organomegaly. Neuro: Alert, oriented, non-focal. Labs: CBC, BMP 07/19/18 05:25 07/19/18 05:25 Assessment. Malignant mesothelioma, with stable disease on immunotherapy, admitted now with recent deterioration is respiratory status, attributed to fluid overload, with some improvement with diuresis. cardiology following - paradoxical AF noted - on apixaban. Rate controlled. Continue diuresis, until dry weight. BUN/creat elevated, but stable.
[2018-07-19] MEDS: guaiFENesin/D-M SUGAR-FREE/ACLHOL-FREE 118 ML BOTTLE PO PRN (22:52)
[2018-07-20] MEDS: NYSTATIN 500,000 UNITS/5 ML SUSPENSION PO SCH ×3 (06:09→18:40)
[2018-07-20] MEDS: INSULIN SLIDING SCALE (NOVOLOG) 1 VIAL SQ SCH ×3 (06:10→16:31)
[2018-07-20 07:21] LABS: BASO % 0.2 % (0-2.0); EOS % 0.1 % (0-4.5); HEMATOCRIT 34.6 % (35.4-49); HEMOGLOBIN 11.5 GM/dL (11.7-16.9); LYMPH % 7.5 % (8-40); MCH 28.1 pg (25.7-33.7); MCHC 33.3 g/dl (32.0-35.9); MEAN CELL VOLUME 84.3 fl (80-96); MEAN PLT VOLUME 7.8 fl (7.5-11.1); MONO % 7.7 % (3.8-10.2); NEUT % 84.5 % (42.8-82.8); PLATELET COUNT 325 K/MM3 (134-434); RDW 15.7 % (11.9-15.9); WHITE BLOOD COUNT 16.6 K/mm3 (4.0-10.0)
[2018-07-20 07:38] LABS: ANION GAP 6 MMOL/L (8-16); BLOOD UREA NITROGEN 35 mg/dL (7-18); CALCIUM 8.2 mg/dL (8.5-10.1); CHLORIDE 102 mmol/L (98-107); CO2 33 mmol/L (21-32); CREATININE 1.1 mg/dL (0.55-1.3); GLUCOSE,RANDOM 99 mg/dL (74-106); MAGNESIUM 2.6 mg/dL (1.8-2.4); PHOSPHOROUS 4.3 mg/dL (2.5-4.9); POTASSIUM 4.3 mmol/L (3.5-5.1); SODIUM 140 mmol/L (136-145)
[2018-07-20] MEDS ORDERED: ACETAMINOPHEN 325 MG TABLET (FP) PO PRN (07:51)
[2018-07-20] MEDS: ALBUTEROL SO4 0.083% IH SOL 2.5 MG/3 ML VIAL.NEB. NEB SCH ×3 (08:30→16:55)
--- NOTE | 2018-07-20 08:36 | PN ---
Physical Exam: SUBJECTIVE: Patient seen and examined by me at bedside Reports belching with some abdominal burning. However, states the pain resolves when he drinks hot tea. States he's had this for years and takes anti- acid. Otherwise, patient denies any fever, chills, nausea, vomiting, abdominal pain, chest pain, palpitations, dysuria, hematuria, hematochezia, melena, hemoptysis. OBJECTIVE: Vital Signs Period Temp Pulse Resp BP Sys/Clements Pulse Ox Last 24 Hr 97.3 F-99 F 78-90 18-20 106-127/56-78 99-100 GENERAL: The patient is awake, alert, and fully oriented, in no acute distress. EYES: Sclera anicteric, conjunctiva clear. No ptosis. ENT: Moist mucous membranes. LUNGS: CTA b/l on rest. No accessory muscle use on 02 NC HEART: Irregularly irregular rhythm with regular rate. No murmurs appreciated ABDOMEN: Soft, nontender, distended, normoactive bowel sounds EXTREMITIES: No edema. Laboratory Results 07/20/18 06:30 07/20/18 06:30 Active Medications Generic Name Dose Route Start Last Admin Trade Name Freq PRN Reason Stop Dose Admin Acetaminophen 650 mg 07/20/18 07:51 Tylenol - PO Q6H PRN PAIN LEVEL 1-5 Albuterol Sulfate 1 amp 07/18/18 10:51 Ventolin 0.083% Nebulizer Soln - NEB Q4H PRN SHORT OF BREATH/WHEEZING Albuterol Sulfate 1 amp 07/18/18 12:00 07/19/18 20:37 Ventolin 0.083% Nebulizer Soln - NEB 1 amp RQID JANINE Administration Amlodipine Besylate 5 mg 07/12/18 10:00 07/19/18 09:35 Norvasc - PO 5 mg DAILY JANINE Administration Apixaban 5 mg 07/14/18 22:00 07/19/18 22:35 Eliquis - PO 5 mg BID JANINE Administration Aspirin 81 mg 07/12/18 10:00 07/19/18 09:35 Ecotrin - PO 81 mg DAILY JANINE Administration Budesonide/Formoterol Fumarate 2 puff 07/12/18 22:00 07/19/18 22:35 Symbicort 80/4.5mcg - IH 2 puff BID JANINE Administration Carvedilol 12.5 mg 07/12/18 22:00 07/19/18 22:35 Coreg - PO 12.5 mg BID JANINE Administration Fenofibric Acid 135 mg 07/12/18 10:00 07/19/18 09:35 Trilipix - PO 135 mg DAILY JANINE Administration Folic Acid 1 mg 07/12/18 10:00 07/19/18 09:37 Folic Acid - PO 1 mg DAILY JANINE Administration Furosemide 40 mg 07/20/18 14:00 Lasix - PO BID@0600,1400 [facility] Guaifenesin 5 ml 07/16/18 13:51 07/19/18 22:52 Diabetic Tussin Dm - PO 5 ml Q4H PRN Administration COUGH Insulin Aspart 1 vial 07/15/18 11:00 07/20/18 06:10 Novolog Vial Sliding Scale - SQ Not Given [facility]AC [facility] Protocol Nystatin 500,000 units 07/13/18 12:00 07/20/18 06:09 Nystatin Oral Suspension - PO 500,000 units Q6HPO JANINE Administration Pantoprazole Sodium 40 mg 07/20/18 10:00 Protonix - PO DAILY [facility] Prednisone 60 mg 07/19/18 10:00 07/19/18 09:36 Deltasone - PO 60 mg DAILY [facility] Administration Tiotropium [place] 2 puff 07/12/18 11:00 07/19/18 09:39 Spiriva Respimat IH Not Given DAILY [facility] ASSESSMENT/PLAN: Patient is a 67 year old male with a significant PMHx of Mesothelioma and COPD who presented for severe shortness of breath and admitted for further monitoring and management. Shortness of breath -Likely secondary to Acute COPD exacerbation w/ possible worsening Mesothelioma -Patient responded well to lasix with improved weight and good UOP. However, mild bump in BUN/Cr with lasix dose held yesterday. Lasix 40mg PO BID resumed today. -Prednisone 60mg daily -Continue Spiriva and symbicort. -Nebulizers PRN -Continue with . -Will have pre and post 02 to see if patient requires oxygen at home Acute on Chronic COPD Exacerbation -Steroid taper with Prednisone 60mg daily -Continue Inhalers with Symbicort and Spiriva -Continue Nebulizers PRN Acute Kidney Injury- Improved -Likely form Lasix use. -Will continue to monitor BMP Atrial Fibrillation -Continue Eliquis 5mg BID -Continue Coreg 12.5mg BID Mesothelioma (Pleural) -Possibly worsening causing worsening shortness of breath -Being followed by Oncology. -Continue nivolumab, as per oncology HTN -Controlled -Continue Coreg 12.5mg BID -Continue Amlodipine 5mg daily -Continue to monitor BP Oral Thrush -Continue swish and swallow F/E/N -No fluids -Electrolytes wnl -Sodium controlled diet Prophylaxis -Eliquis 5mg BID for DVT -Protonix daily for GI Disposition -Full code -Likely to be discharged in the next 24 hours Lesia Gandara [id number]
--- NOTE | 2018-07-20 09:38 | PN ---
Teaching Attending Note Name of Resident: Lesia Gandara ATTENDING PHYSICIAN STATEMENT I saw and evaluated the patient. I reviewed the resident's note and discussed the case with the resident. I agree with the resident's findings and plan as documented with exceptions below. SUBJECTIVE: Patient seen and examined. Breathing improved. Some 'gas' pains earlier this AM , resolved with belching, reports having the concern for last 2 years, eating breakfast currently with no complaints. OBJECTIVE: Vital Signs Period Temp Pulse Resp BP Sys/Clements Pulse Ox Last 24 Hr 97.3 F-99 F 78-90 18-20 106-127/56-78 99 Intake & Output 07/17/18 07/18/18 07/19/18 07/20/18 23:59 23:59 23:59 23:59 Intake Total 9082 021 8317 260 Output Total 3600 3600 3300 1800 Balance -2420 -3000 -1990 -1540 Weight 218 lb 215 lb 3 oz 213 lb 4 oz General: sitting in bed having breakfast, no acute distress, tachypnea resolved Chest: improved air entry bilaterally, no rales or wheezing Abdomen:Soft, obese, NT Extremities: no pedal edema Home Medications Medication Instructions Recorded Amlodipine Besylate [Norvasc -] 5 mg PO DAILY 08/11/17 Aspirin [Ecotrin] 81 mg PO DAILY 08/11/17 Carvedilol 12.5 mg PO DAILY 08/11/17 Fenofibrate [Lipofen] 160 mg PO DAILY 08/11/17 Folic Acid 1 mg PO DAILY 08/11/17 Furosemide [Lasix] 40 mg PO BID 08/11/17 Omeprazole Magnesium [Prilosec Otc] 20 mg PO DAILY 08/11/17 Triamcinolone 0.1% Cream 1 applic TP BID #1 applic 08/14/17 [Aristocort 0.1% Cream -] Budesonide/Formeterol Fumarate 2 inh IH DAILY 07/12/18 [SYMBICORT 80/4.5mcg -] Ipratropium/Albuterol Sulfate 4 gm IH BID 07/12/18 [Combivent Respimat Inhal [place]] Umeclidinium [place] [Incruse 1 puff IH TID 07/12/18 Ellipta] Lactobacillus Acidophilus [Bacid -] 1 each PO DAILY 07/13/18 Psyllium Husk (with Sugar) 3.4 gm PO DAILY 07/13/18 [Metamucil Packet] Apixaban [Eliquis] 5 mg PO BID #60 tablet 07/20/18 Active Medications Acetaminophen (Tylenol -) 650 mg PO Q6H PRN PRN Reason: PAIN LEVEL 1-5 Albuterol Sulfate (Ventolin 0.083% Nebulizer Soln -) 1 amp NEB Q4H PRN PRN Reason: SHORT OF BREATH/WHEEZING Albuterol Sulfate (Ventolin 0.083% Nebulizer Soln -) 1 amp NEB RQID [facility] Last Admin: 07/19/18 20:37 Dose: 1 amp Amlodipine Besylate (Norvasc -) 5 mg PO DAILY [facility] Last Admin: 07/19/18 09:35 Dose: 5 mg Apixaban (Eliquis -) 5 mg PO BID [facility] Last Admin: 07/19/18 22:35 Dose: 5 mg Aspirin (Ecotrin -) 81 mg PO DAILY [facility] Last Admin: 07/19/18 09:35 Dose: 81 mg Budesonide/Formoterol Fumarate (Symbicort 80/4.5mcg -) 2 puff IH BID [facility] Last Admin: 07/19/18 22:35 Dose: 2 puff Carvedilol (Coreg -) 12.5 mg PO BID [facility] Last Admin: 07/19/18 22:35 Dose: 12.5 mg Fenofibric Acid (Trilipix -) 135 mg PO DAILY [facility] Last Admin: 07/19/18 09:35 Dose: 135 mg Folic Acid (Folic Acid -) 1 mg PO DAILY [facility] Last Admin: 07/19/18 09:37 Dose: 1 mg Furosemide (Lasix -) 40 mg PO BID@0600,1400 [facility] Guaifenesin (Diabetic Tussin Dm -) 5 ml PO Q4H PRN PRN Reason: COUGH Last Admin: 07/19/18 22:52 Dose: 5 ml Insulin Aspart (Novolog Vial Sliding Scale -) 1 vial SQ TIDAC [facility]; Protocol Last Admin: 07/20/18 06:10 Dose: Not Given Nystatin (Nystatin Oral Suspension -) 500,000 units PO Q6HPO [facility] Last Admin: 07/20/18 06:09 Dose: 500,000 units Pantoprazole Sodium (Protonix -) 40 mg PO DAILY [facility] Prednisone (Deltasone -) 60 mg PO DAILY [facility] Last Admin: 07/19/18 09:36 Dose: 60 mg Tiotropium [place] (Spiriva Respimat) 2 puff IH DAILY [facility] Last Admin: 07/19/18 09:39 Dose: Not Given Laboratory Results - last 24 hr 07/19/18 07/19/18 07/19/18 05:25 12:05 16:40 WBC RBC Hgb Hct MCV MCH MCHC RDW Plt Count MPV Absolute Neuts (auto) Total Counted 100 Neutrophils % Neutrophils % (Manual) 91.0 H Band Neutrophils % 1.0 Lymphocytes % Lymphocytes % (Manual) 5.0 L D Monocytes % Monocytes % (Manual) 3 L Eosinophils % Basophils % Nucleated RBC % Platelet Estimate Adequate Platelet Comment No clotting detected Sodium Potassium Chloride Carbon Dioxide Anion Gap BUN Creatinine Creat Clearance w eGFR POC Glucometer 133 197 Random Glucose Calcium Phosphorus Magnesium 07/20/18 07/20/18 07/20/18 05:58 06:30 06:30 WBC 16.6 H RBC 4.10 Hgb 11.5 L Hct 34.6 L MCV 84.3 MCH 28.1 MCHC 33.3 RDW 15.7 Plt Count 325 MPV 7.8 Absolute Neuts (auto) 14.1 H Total Counted Neutrophils % 84.5 H Neutrophils % (Manual) Band Neutrophils % Lymphocytes % 7.5 L D Lymphocytes % (Manual) Monocytes % 7.7 D Monocytes % (Manual) Eosinophils % 0.1 D Basophils % 0.2 Nucleated RBC % 0 Platelet Estimate Platelet Comment Sodium 140 Potassium 4.3 Chloride 102 Carbon Dioxide 33 H Anion Gap 6 L BUN 35 H Creatinine 1.1 Creat Clearance w eGFR > 60 POC Glucometer 100 Random Glucose 99 Calcium 8.2 L Phosphorus 4.3 Magnesium 2.6 H ASSESSMENT AND PLAN: 67M with COPD, CHF, CKD, mesothelioma dx 2 years ago, s/p carbo/alimta with eventual POD, now on nivolumab since 12/2017 (c11 on 07/06/18), admitted with dyspnea, found with COPD exacerbation and new onset Afib (rate controlled) -Acute COPD exacerbation -Acute diastolic Heart failure exacerbation -New Onset Atrial fibrillation (rate controlled) -Small pericardial effusion -CYNDIE, ?Hypovolumia -Hyperglycemia, suspect steroid induced. -Leucocytosis, suspect steroid induced -Mesotheliama dx 2 years ago, s/p carbo/alimta with eventual POD, now on nivolumab since 12/2017 (c11 on 07/06/18) Plan: Breathing improved. responded well to lasix. renal function stable. Resume home lasix regimen 40 mg BID Steroids PO with slow taper, outpatient pulmonary follo wup. Cardiology/Pulmonary input appreciated. Additional ischemia w/u per cardiology. Strict I/Os, daily weights. CTA chest neg for PE, off heparin drip. 2D echo results reviewed Pulmonary/oncology input appreciated. Eliquis/Coreg/aspirin. Renal US noted. A1c noted, Diabetic diet and nutrition consult. Will need outpatient monitoring once off steroids. DVTPPX apixaban as above. Dispo ambulating well, home oxygen needs assessment. d/c home with [facility] today pending oxygen needs assessment and disposition arrangements. Plan discussed with patient and nursing in detail, all questions answered.
[2018-07-20] MEDS ORDERED: PANTOPRAZOLE 40 MG TABLET (FP) PO SCH (10:00)
[2018-07-20] MEDS ORDERED: PT OWN MED DRAWER 7, Y5N ONE (10:05)
[2018-07-20] MEDS: FOLIC ACID 1 MG TABLET (FP) PO SCH (10:17)
[2018-07-20] MEDS: FENOFIBRIC ACID 135 MG CAP PO SCH (10:17)
[2018-07-20] MEDS: predniSONE 20 MG TABLET (UD) PO SCH (10:18)
[2018-07-20] MEDS: amLODIPine BESYLATE 5 MG TABLET (FP) PO SCH (10:18)
[2018-07-20] MEDS: APIXABAN 5 MG TABLET PO SCH (10:18)
[2018-07-20] MEDS: CARVEDILOL 12.5 MG TABLET (FP) PO SCH (10:18)
[2018-07-20] MEDS: BUDESONIDE/FORMETEROL FUMARATE 80/4.5 mcg INHALER IH SCH (10:18)
[2018-07-20] MEDS: ASPIRIN COATED 81 MG TABLET.EC PO SCH (10:18)
[2018-07-20] MEDS: TIOTROPIUM BROMIDE 2.5 MCG (SPIRIVA) RESPIMAT INHALER IH SCH (10:19)
--- NOTE | 2018-07-20 11:33 | PN ---
Progress Note (short form) - Note Progress Note: Chief Complaint: sob History of Present Illness: no chest pain, palps, dizziness, lightheadedness, sob Current Medications Acetaminophen (Tylenol -) 650 mg PO Q6H PRN PRN Reason: PAIN LEVEL 1-5 Last Admin: 07/20/18 10:16 Dose: 650 mg Albuterol Sulfate (Ventolin 0.083% Nebulizer Soln -) 1 amp NEB Q4H PRN PRN Reason: SHORT OF BREATH/WHEEZING Albuterol Sulfate (Ventolin 0.083% Nebulizer Soln -) 1 amp NEB RQID [facility] Last Admin: 07/19/18 20:37 Dose: 1 amp Amlodipine Besylate (Norvasc -) 5 mg PO DAILY [facility] Last Admin: 07/20/18 10:18 Dose: 5 mg Apixaban (Eliquis -) 5 mg PO BID [facility] Last Admin: 07/20/18 10:18 Dose: 5 mg Aspirin (Ecotrin -) 81 mg PO DAILY [facility] Last Admin: 07/20/18 10:18 Dose: 81 mg Budesonide/Formoterol Fumarate (Symbicort 80/4.5mcg -) 2 puff IH BID [facility] Last Admin: 07/20/18 10:18 Dose: 2 puff Carvedilol (Coreg -) 12.5 mg PO BID [facility] Last Admin: 07/20/18 10:18 Dose: 12.5 mg Fenofibric Acid (Trilipix -) 135 mg PO DAILY [facility] Last Admin: 07/20/18 10:17 Dose: 135 mg Folic Acid (Folic Acid -) 1 mg PO DAILY [facility] Last Admin: 07/20/18 10:17 Dose: 1 mg Furosemide (Lasix -) 40 mg PO BID@0600,1400 [facility] Guaifenesin (Diabetic Tussin Dm -) 5 ml PO Q4H PRN PRN Reason: COUGH Last Admin: 07/19/18 22:52 Dose: 5 ml Insulin Aspart (Novolog Vial Sliding Scale -) 1 vial SQ TIDAC [facility]; Protocol Last Admin: 07/20/18 11:26 Dose: Not Given Nystatin (Nystatin Oral Suspension -) 500,000 units PO Q6HPO [facility] Last Admin: 07/20/18 06:09 Dose: 500,000 units Pantoprazole Sodium (Protonix -) 40 mg PO DAILY [facility] Last Admin: 07/20/18 10:18 Dose: 40 mg Prednisone (Deltasone -) 60 mg PO DAILY [facility] Last Admin: 07/20/18 10:18 Dose: 60 mg Tiotropium [place] (Spiriva Respimat) 2 puff IH DAILY [facility] Last Admin: 07/20/18 10:19 Dose: Not Given Vital Signs Period Temp Pulse Resp BP Sys/Clements Pulse Ox Last 24 Hr 97.3 F-99 F 78-90 18-20 106-127/56-73 99 Constitutional: Yes: Well Nourished, No Distress Eyes: No: Sclera Icterus Respiratory: Yes: CTA Bilaterally, Diminished (bases). No: Accessory Muscle Use , Rales, Wheezes Gastrointestinal: Yes: Normal Bowel Sounds, Distention. No: Hepatomegaly, Palpable Mass, Tenderness Cardiovascular: Yes: Regular Rate and Rhythm JVD: No Heart Sounds: Yes: S1, S2. No: Gallop Murmur: No: Systolic Murmur, Diastolic Murmur Extremities: No: Cool, Cyanosis Edema: trace le edema bl Peripheral Pulses: 2+ Left Carotid, 2+ Right Carotid, 2+ Left Doralis Pedis, 2+ Right Dorsalis Pedis Integumentary: No: Jaundice Neurological: Yes: Alert, Oriented (x3) Psychiatric: No: Agitated Assessment/Plan ECG: NSR, ? old AWMI (unchanged vs prior), diffuse NSST-T (mild)--slightly more pronounced vs prior echo in 10/15 Dr. Meyer: normal LV, no pericardial effusion (no other signif abnormality) echo 06/2018 nl LV function, mildly reduced RV function, borderline LA enlargement, mild MR, mild TR, RVSP nl, small pericardial effusion <1 cm, no echo indication of tamponade EKG 07/[address] chest: stable mesothelioma findings. no pulm edema. trace to small pleural eff (decr vs prior scan). [id number] pericardial effusion (no gross pericardial nodules/metastatic dz) tele: afib, rate controlled SOB (including bendopnea), abd distension, pericardial effusion, mesothelioma, asthma: -? h/o CHF--no details available (home meds notable for carvedilol, lasix, amlodipine for bp)--recent w/u 2018 unrevealing per pt report -CT chest without signif pulm congestion. CT and sono without ascites. -BNP 300 (no priors) -appears euvolemic on exam -echo shows small pericardial effusion with no tamponade -no clinical tamponade with normal hemodynamics - no PE on CTA -07/16: given persistent sob with no obvious etiology will give trial of iv lasix to see if some component of chf. Pt takes lasix 40 po bid at home. Will give test dose of 60 mg iv today and monitor response. -07/17: pt reports good amount of diuresis with lasix yesterday,received additional dose - 07/18 stable Cr, improved symptoms. received additional lasix 60 mg IV this morning, monitor Cr, lytes daily weight - 07/19 Cr rising, agree with holding lasix today, sob and edema improving - 07/20 Cr stable on home lasix 40 mg PO BID, discussed daily weights, low salt diet with patient, follow up with cardiology in 1-2 weeks - pulm following as well afib - patient endorses history of "irregular heartbeat" 8-10 years go while being treated for mesothelioma, was started on aspirin 81 mg daily at that time - now with pafib starting on tele 07/14 occasionally feeling palps, improving - PE ruled out, now on eliquis, [id number] score 2 - continue carvedilol, rate ok when in afib NSVT - episode noted on tele - maintain K>4.0, Mg >2.0 - nl LV function HTN: -bp controlled -cont home meds CYNDIE on CKD: -baseline creat 1.4 -initially up here, given gentle IVF in ER (? total amt)--renal fxn at baseline now
[2018-07-20 11:47] LABS: ACANTHOCYTES 0; ANISOCYTOSIS 0; HELMET CELLS 0; HOWELL-JOLLY BODIES 0; MACROCYTOSIS 0; OVALOCYTE 0; PLATELET ESTIMATE NORMAL; ROULEAU 0; SICKELED CELLS 0; TARGET CELLS 0; TEAR DROP CELLS 0; TOXIC GRANULATION 0
--- NOTE | 2018-07-20 12:59 | PN ---
Progress Note (short form) - Note Progress Note: PULMONARY EATING LUNCH APPEARS STABLE VSS/AFEBRILE ANICTERIC DIMINISHED BREATH SOUNDS AT BASES S1S2 IRREGULAR BS+ NO EDEMA LABS/MEDS/NOTES/IMAGES REVIEWED A/P Acute COPD Exacerbation r/o Acute Diastolic Heart Failure Mesothelioma Acute Kidney Injury HTN/AF - prednisone taper - inhaled bronchodilators - continue lasix as needed - monitor urine output, creatinine - daily weights - O2 to keep SPo2 >90% - on anticoagulation Vinay BEARDEN MD
[2018-07-20] MEDS ORDERED: FUROSEMIDE 40 MG TABLET (FP) PO SCH (14:00)
[2018-07-20 14:53] VITALS: BP 116/55; PULSE 87; TEMP 97.5
--- NOTE | 2018-07-20 21:19 | DS ---
Physical Exam: SUBJECTIVE: Patient seen and examined by me at bedside Reports belching with some abdominal burning. However, states the pain resolves when he drinks hot tea. States he's had this for years and takes anti- acid. Otherwise, patient denies any fever, chills, nausea, vomiting, abdominal pain, chest pain, palpitations, dysuria, hematuria, hematochezia, melena, hemoptysi OBJECTIVE: Vital Signs Period Temp Pulse Resp BP Sys/Clements Pulse Ox Last 24 Hr 97.3 F-99 F 78-89 20-20 106-116/55-73 96-96 PHYSICAL EXAM GENERAL: The patient is awake, alert, and fully oriented, in no acute distress. EYES: Sclera anicteric, conjunctiva clear. No ptosis. ENT: Moist mucous membranes. LUNGS: CTA b/l on rest. No accessory muscle use on 02 NC HEART: Irregularly irregular rhythm with regular rate. No murmurs appreciated ABDOMEN: Soft, nontender, distended, normoactive bowel sounds EXTREMITIES: No edema. Laboratory Results 07/20/18 06:30 07/20/18 06:30 PRE HOSPITAL COURSE: Patient is a 67 year old male with a PMHx of asthma, HLD, Diastolic CHF, nephrolithiasis, mesothelioma (dx 2017, S/P chemotherpay now on immunotherapy with Nivolumab. 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 Patient was admitted for further monitoring and management. HOSPITAL COURSE: Throughout hospitalization, Patient had Chest CTA which was negative for acute pathology, as one of the differentials included pulmonary embolism. Other differential etiollogies included COPD vs CHF exacerbation vs. infectious or worsening Mesothelioma. He was placed on standing nebulizers/inhalers and started on IV steroids. Patient was seen by oncology, and believed the Mesothelioma was stable based on recent CT chest when compared to previous one. Patients respiratory status did not improve initially with IV steroids and nebulizers/Inhalers, then cardiology was consulted for further evaluation. Patient placed on IV Lasix with good UOP and good response. Patient started having less shortness of breath and was able to lay down flat without shortness of breath. Still had some dyspnea on exertion. Patient on cardiac monitoring was also found to have atrial fibrillation and started on Eliquis twice a day. Was advised to follow up with Cardiology within 1-2 weeks for further ischemic work up, as it might be the cause of his dyspnea superimposed with mesothelioma. Patient had Pre and Post 02 and did not meet criteria for home oxygen. Patient's shortness of breath significantly improved and was discharged with PO prednisone taper, home nebulizers/inhalers and appointment set up with Dr. Newman for next immunotherapy (07/22/18). Patient verbalized understanding Date of Admission:07/13/18 Date of Discharge: 07/20/18 Minutes to complete discharge: 45 Discharge Summary Reason For Visit: SHORTNESS OF BREATH Condition: Stable - Instructions Diet, Activity, Other Instructions: RECOMMENDATIONS: -You were seen here for worsening shortness of breath likely from your COPD and a component of your heart. You have been given steroids, inhalers, and antibiotics with improvement. -You will need to continue taking steroids -You will also be taking a new medication called Eliquis due to an abnormal heart rhythm found here -You had an evaluation done by respiratory and you did not require any oxygen at home. -You were also seen here by Cardiology and will need to have a work up done by them to further assess your heart -Please resume your regular sodium and diabetes diet -You will have a visiting nurse a couple of times a week. -If you have any worsening symptoms such as shortness of breath or chest pain, return to the emergency department. FOLLOW UP: -Please follow up with the [employer] business intelligence developer in 1-2 weeks to further evaluate your heart and monitor you on the new medication prescribed called eliquis -Please follow up with your Lung doctor within a week -Please follow up with your Kidney doctor for monitoring of your kidneys, especially when taking Lasix (Follow up blood work: Basic Metabolic panel in 1 week with your kidney doctor_ -Please follow up with your primary care physician within a week -Please follow up at your Mesothelioma clinic within 2 weeks -Follow up with Dr. Newman as directed MEDICATIONS: -You will be sent home with a new medication called Eliquis for your abnormal heart rhythm called Atrial Fibrillation. You will be taking 5mg twice a day, every day. Please pick it up from your pharmacy -You will also be placed on a steroid called Prednisone and with a slow taper. Instructions will be labeled on the bottle. Please pick it up from your pharmacy. You will be taking Prednisone 60mg daily for 4 days, then Prednisone 50mg daily for 4 days, then Prednisone 40mg daily for 4 days, then 30mg daily for 4 days, then 20mg daily for 4 days, then 10mg daily for 4 days -You will need to check your sugar levels while being on steroids. A prescription for a glucometer and strips has been sent to your pharmacy. Please pick it up. ACTIVITY: Advise daily weights and notify doctor if weight gain > 3 lbs in 2 days. Advise you continue with low salt diabetic diet. You are advised to check your blood sugars before meals and at bedtime and maintain a diary. If you notice that your blood sugars are < 75 persistently > 200, please call your doctor. You are advised to follow up with your doctor over next 3-5 days for blood sugar check and to discuss further plan. Also while on eliquis which is a blood thinner, please be careful while walking , try to avoid cuts and scrapes. If you notice any new fevers, chills, worsening breathing, bleeding that does not stop or any new concerns, please call 911 or come to ED. Referrals: Jesu Moore MD [Staff Physician] - Aletha Dooley MD [Staff Physician] - Gael Maddox MD [Primary Care Provider] - Neil Newman MD [Staff Physician] - Disposition: [facility]/HOME HEALTH CARE - Home Medications Comprehensive Discharge Medication List: Ambulatory Orders Amlodipine Besylate [Norvasc -] 5 mg PO DAILY 08/11/17 Aspirin [Ecotrin] 81 mg PO DAILY 08/11/17 Carvedilol 12.5 mg PO DAILY 08/11/17 Fenofibrate [Lipofen] 160 mg PO DAILY 08/11/17 Folic Acid 1 mg PO DAILY 08/11/17 Furosemide [Lasix] 40 mg PO BID 08/11/17 Omeprazole Magnesium [Prilosec Otc] 20 mg PO DAILY 08/11/17 Triamcinolone 0.1% Cream [Aristocort 0.1% Cream -] 1 applic TP BID #1 applic Budesonide/Formeterol Fumarate [SYMBICORT 80/4.5mcg -] 2 inh IH DAILY 07/12/18 Ipratropium/Albuterol Sulfate [Combivent Respimat 20-100 Mcg] 4 gm IH BID Umeclidinium [place] [Incruse Ellipta] 1 puff IH TID 07/12/18 Lactobacillus Acidophilus [Bacid -] 1 each PO DAILY 07/13/18 Psyllium Husk (with Sugar) [Metamucil Packet] 3.4 gm PO DAILY 07/13/18 Albuterol 2.5/Ipratropium 0.5 [Duoneb -] 1 neb IH QID PRN #3 vial.neb. 07/20/18 Apixaban [Eliquis] 5 mg PO BID #60 tablet 07/20/18 [employer] [Glucometer Device] 1 each AD ASDIR #1 kit [facility] [facility] [employer] [Glucometer Test Strips #100] 1 each AD ASDIR #1 box 07/20/18 Nebulizer [Compact Ultrasonic Nebulizer] 1 each [facility] DAILY PRN #1 each 07/20/18 Prednisone See Taper PO DAILY #84 tablet 07/20/18 This patient is new to me today: Yes Date on this admission: 07/20/18 Emergency Visit: No Critical Care patient: No - Discharge Referral Referred to [facility] No
== END 2018-07-20 19:08 | disposition home health service (06) | DRG 190 ==
LOC: JER 20:53 → JERBED 07-12 04:53 → OBSVTOIN 07-13 10:38 → J4S 07-13 14:48
PROVIDERS: ADMIT Internal Medicine; ATTEND Hospitalist
DX: J44.1 Chronic obstructive pulmonary disease with (acute) exacerbation (principal); I50.31 Acute diastolic (congestive) heart failure; N17.9 Acute kidney failure, unspecified; B37.0 Candidal stomatitis; I31.3 Pericardial effusion (noninflammatory); I47.1 Supraventricular tachycardia; J45.901 Unspecified asthma with (acute) exacerbation; I48.91 Unspecified atrial fibrillation; C45.9 Mesothelioma, unspecified; E78.5 Hyperlipidemia, unspecified; I12.9 Hypertensive chronic kidney disease with stage 1 through stage 4 chronic kidney disease, or unspecified chronic kidney disease; N18.9 Chronic kidney disease, unspecified; D72.829 Elevated white blood cell count, unspecified
CPT/HCPCS: 36415; 36600; 71045-TC-FY; 71250-TC; 71275-TC; 76700-TC; 76775-TC; 80048; 80053; 82272; 82375; 82550; 82803; 82962; 83036; 83050; 83735; 83880; 84100; 84484; 85025; 85027; 85730; 93005; 93010; 93306-TC; 94640; 94761; 99285-25; G0378; J1644; J7030

== ENCOUNTER 2018-07-22 09:21 | Day surgery (SDC) | payer MEDICARE, OTHER ==
[2018-07-22] MEDS ORDERED: SODIUM CHLORIDE 250 ML IV ONE ×2 (09:30→11:30)
[2018-07-22] MEDS ORDERED: DEXAMETHASONE SODIUM PHOSPHATE 10 MG, ONDANSETRON INJECTION 8 MG in SODIUM CHLORIDE 100 ML IVPB ONE (10:00)
[2018-07-22] MEDS ORDERED: NIVOLUMAB 200 MG, NIVOLUMAB 40 MG in SODIUM CHLORIDE 100 ML IVPB ONE (10:30)
[2018-07-22 16:06] VITALS: TEMP 98.2
[2018-07-22] MEDS ORDERED: PORTA CATH FLUSH 10 ML IVPUSH ONE (16:06)
[2018-07-22 16:08] VITALS: BP 97/67; PULSE 97
== END 2018-07-22 12:30 | disposition home or self-care (01) ==
LOC: JONCCHEMO 09:21 → J7W 09:23 → JONCCHEMO 12:30
PROVIDERS: ATTEND Internal Medicine Hematology & Oncology
DX: Z51.11 Encounter for antineoplastic chemotherapy (principal); C45.0 Mesothelioma of pleura
CPT/HCPCS: 96367; 96375; 96413; J2405; J9299

== ENCOUNTER 2018-08-03 06:35 | Day surgery (SDC) | payer MEDICARE, OTHER ==
[2018-08-03] MEDS ORDERED: SODIUM CHLORIDE 250 ML IV ONE ×2 (09:30→11:30)
[2018-08-03] MEDS ORDERED: DEXAMETHASONE SODIUM PHOSPHATE 10 MG, ONDANSETRON INJECTION 8 MG in SODIUM CHLORIDE 100 ML IVPB ONE (10:00)
[2018-08-03] MEDS ORDERED: NIVOLUMAB 200 MG, NIVOLUMAB 40 MG in SODIUM CHLORIDE 100 ML IVPB ONE (10:30)
[2018-08-03 11:29] LABS: BASO % 0.2 % (0-2.0); EOS % 1.1 % (0-4.5); HEMATOCRIT 34.9 % (35.4-49); HEMOGLOBIN 11.8 GM/dL (11.7-16.9); LYMPH % 17.1 % (8-40); MCH 29.1 pg (25.7-33.7); MCHC 33.9 g/dl (32.0-35.9); MEAN CELL VOLUME 85.8 fl (80-96); MEAN PLT VOLUME 8.3 fl (7.5-11.1); MONO % 7.2 % (3.8-10.2); NEUT % 74.4 % (42.8-82.8); PLATELET COUNT 188 K/MM3 (134-434); RBC 4.06 M/mm3 (4.00-5.60); RDW 16.7 % (11.9-15.9); WHITE BLOOD COUNT 9.6 K/mm3 (4.0-10.0)
[2018-08-03 12:06] LABS: ALBUMIN 3.2 g/dl (3.4-5.0); ALK PHOS 108 U/L (45-117); ANION GAP 3 MMOL/L (8-16); BILIRUBIN,DIRECT 0.1 mg/dL (0.0-0.2); BILIRUBIN,TOTAL 0.3 mg/dL (0.2-1); BLOOD UREA NITROGEN 27 mg/dL (7-18); CALCIUM 7.9 mg/dL (8.5-10.1); CHLORIDE 103 mmol/L (98-107); CO2 35 mmol/L (21-32); CREATININE 1.4 mg/dL (0.55-1.3); GLUCOSE,RANDOM 122 mg/dL (74-106); MAGNESIUM 2.1 mg/dL (1.8-2.4); POTASSIUM 3.3 mmol/L (3.5-5.1); SGOT/AST 17 U/L (15-37); SGPT/ALT 57 U/L (13-61); SODIUM 141 mmol/L (136-145); TOT PROT 6.5 g/dl (6.4-8.2)
[2018-08-03 16:26] VITALS: BP 132/83; PULSE 90
[2018-08-03] MEDS ORDERED: PORTA CATH FLUSH 10 ML IVPUSH ONE (16:36)
[2018-08-03 16:41] VITALS: TEMP 97.8
== END 2018-08-03 15:40 | disposition home or self-care (01) ==
LOC: JONCCHEMO 06:35 → J7W 10:15 → JONCCHEMO 15:40
PROVIDERS: ATTEND Internal Medicine Hematology & Oncology
DX: Z51.11 Encounter for antineoplastic chemotherapy (principal); C45.0 Mesothelioma of pleura
CPT/HCPCS: 36415; 80048; 80076; 83735; 84439; 84443; 85025; 96361; 96367; 96375; 96413; J9299

== ENCOUNTER 2018-08-19 06:41 | Day surgery (SDC) | payer MEDICARE, OTHER ==
[2018-08-19] MEDS ORDERED: SODIUM CHLORIDE 250 ML IV ONE ×2 (08:00→10:00)
[2018-08-19] MEDS ORDERED: DEXAMETHASONE SODIUM PHOSPHATE 10 MG, ONDANSETRON INJECTION 8 MG in SODIUM CHLORIDE 100 ML IVPB ONE (08:30)
[2018-08-19] MEDS ORDERED: NIVOLUMAB 200 MG, NIVOLUMAB 40 MG in SODIUM CHLORIDE 100 ML IVPB ONE (09:00)
[2018-08-19 12:11] LABS: ALBUMIN 3.3 g/dl (3.4-5.0); ALK PHOS 56 U/L (45-117); ANION GAP 8 MMOL/L (8-16); BILIRUBIN,DIRECT 0.2 mg/dL (0.0-0.2); BILIRUBIN,TOTAL 0.6 mg/dL (0.2-1); BLOOD UREA NITROGEN 18 mg/dL (7-18); CALCIUM 8.4 mg/dL (8.5-10.1); CHLORIDE 100 mmol/L (98-107); CO2 30 mmol/L (21-32); CREATININE 1.5 mg/dL (0.55-1.3); GLUCOSE,RANDOM 93 mg/dL (74-106); MAGNESIUM 2.1 mg/dL (1.8-2.4); POTASSIUM 3.4 mmol/L (3.5-5.1); SGOT/AST 27 U/L (15-37); SGPT/ALT 49 U/L (13-61); SODIUM 139 mmol/L (136-145); TOT PROT 6.6 g/dl (6.4-8.2)
[2018-08-19] MEDS ORDERED: POTASSIUM CHLORIDE TABS 20 MEQ TABLET.ER (FP) PO ONE (13:00)
[2018-08-19 16:25] VITALS: TEMP 99.2
[2018-08-19] MEDS ORDERED: PORTA CATH FLUSH 10 ML IVPUSH ONE (16:25)
[2018-08-19 16:34] VITALS: BP 103/74; PULSE 94
== END 2018-08-19 14:00 | disposition home or self-care (01) ==
LOC: JONCCHEMO 06:41 → J7W 09:49 → JONCCHEMO 14:00
PROVIDERS: ATTEND Internal Medicine Hematology & Oncology
DX: Z51.11 Encounter for antineoplastic chemotherapy (principal); C45.0 Mesothelioma of pleura
CPT/HCPCS: 36415; 80048; 80076; 83735; 96367; 96375; 96413; J2405; J9299

== ENCOUNTER 2018-08-31 06:34 | Day surgery (SDC) | payer MEDICARE, OTHER ==
[2018-08-31] MEDS ORDERED: SODIUM CHLORIDE 250 ML IV ONE ×2 (08:00→10:00)
[2018-08-31] MEDS ORDERED: DEXAMETHASONE SODIUM PHOSPHATE 10 MG, ONDANSETRON INJECTION 8 MG in SODIUM CHLORIDE 100 ML IVPB ONE (08:30)
[2018-08-31] MEDS ORDERED: NIVOLUMAB 200 MG, NIVOLUMAB 40 MG in SODIUM CHLORIDE 100 ML IVPB ONE (09:00)
[2018-08-31 10:03] LABS: EOS % 1.8 % (0-4.5); HEMATOCRIT 34.7 % (35.4-49); HEMOGLOBIN 11.6 GM/dL (11.7-16.9); LYMPH % 19.3 % (8-40); MCH 28.1 pg (25.7-33.7); MCHC 33.3 g/dl (32.0-35.9); MEAN CELL VOLUME 84.2 fl (80-96); MEAN PLT VOLUME 7.1 fl (7.5-11.1); MONO % 14.3 % (3.8-10.2); NEUT % 63.6 % (42.8-82.8); PLATELET COUNT 311 K/MM3 (134-434); RBC 4.12 M/mm3 (4.00-5.60); RDW 16.6 % (11.9-15.9); WHITE BLOOD COUNT 6.6 K/mm3 (4.0-10.0)
[2018-08-31 10:31] LABS: ALBUMIN 3.4 g/dl (3.4-5.0); ALK PHOS 58 U/L (45-117); ANION GAP 5 MMOL/L (8-16); BILIRUBIN,DIRECT 0.3 mg/dL (0.0-0.2); BILIRUBIN,TOTAL 0.7 mg/dL (0.2-1); BILIRUBIN,TOTAL 0.8 mg/dL (0.2-1); BLOOD UREA NITROGEN 18 mg/dL (7-18); CALCIUM 8.6 mg/dL (8.5-10.1); CHLORIDE 104 mmol/L (98-107); CO2 33 mmol/L (21-32); CREATININE 1.5 mg/dL (0.55-1.3); GLUCOSE,RANDOM 96 mg/dL (74-106); MAGNESIUM 1.8 mg/dL (1.8-2.4); SGOT/AST 18 U/L (15-37); SGPT/ALT 49 U/L (13-61); SODIUM 143 mmol/L (136-145); TOT PROT 6.8 g/dl (6.4-8.2); TOT PROT 6.9 g/dl (6.4-8.2)
[2018-08-31 12:44] VITALS: TEMP 98.2
[2018-08-31 12:44] LABS: URINE APPEARANCE CLEAR; URINE BILIRUBIN NEGATIVE (<2.0 mg/dL); URINE COLOR LTYELLOW; URINE GLUCOSE (UA) NEGATIVE (NEGATIVE); URINE KETONE NEGATIVE (NEGATIVE); URINE LEUK ESTERASE NEGATIVE (NEGATIVE); URINE NITRITE NEGATIVE (NEGATIVE); URINE PROTEIN 1+ (NEGATIVE); URINE UROBILINOGEN NEGATIVE mg/dL (0.2-1.0)
[2018-08-31] MEDS ORDERED: PORTA CATH FLUSH 10 ML IVPUSH ONE (12:58)
[2018-08-31] MEDS: POTASSIUM CHLORIDE 10 MEQ PREMIX IVPB (POTASSIUM RIDER) IVPB SCH ×2 (13:53→14:54)
--- NOTE | 2018-08-31 13:58 | EKG ---
Test Reason : Blood Pressure : / mmHG Vent. Rate : 097 BPM Atrial Rate : 100 BPM P-R Int : 000 ms QRS Dur : 082 ms QT Int : 344 ms P-R-T Axes : 000 026 241 degrees QTc Int : 436 ms ATRIAL FIBRILLATION LOW VOLTAGE QRS SEPTAL INFARCT (CITED ON OR BEFORE 11-AUG-2017) T WAVE ABNORMALITY, CONSIDER INFEROLATERAL ISCHEMIA ABNORMAL ECG WHEN COMPARED WITH ECG OF 14-JUL-2018 03:58, T WAVE VARIATION Confirmed by GLADIS JOHNSON MD ([id number]) on 08/31/2018 1:58:19 PM Referred By: ARETHA TREVINO Confirmed By:GLADIS JOHNSON MD
[2018-08-31 16:21] VITALS: BP 104/71; PULSE 96
== END 2018-08-31 16:10 | disposition home or self-care (01) ==
LOC: JONCCHEMO 06:34 → J7W 11:03 → JONCCHEMO 16:10
PROVIDERS: ATTEND Internal Medicine Hematology & Oncology
DX: Z51.11 Encounter for antineoplastic chemotherapy (principal); C45.0 Mesothelioma of pleura
CPT/HCPCS: 36415; 80053; 80076; 81003; 81015; 83735; 85025; 93005; 93010; 96366; 96367; 96375; 96413; 96417; J2405; J9299

== ENCOUNTER 2018-09-02 14:45 | Inpatient (IN) | payer MEDICARE, OTHER ==
--- NOTE | 2018-09-02 15:47 | EKG ---
Test Reason : Blood Pressure : / mmHG Vent. Rate : 095 BPM Atrial Rate : 092 BPM P-R Int : 000 ms QRS Dur : 082 ms QT Int : 336 ms P-R-T Axes : 000 022 245 degrees QTc Int : 422 ms ATRIAL FIBRILLATION LOW VOLTAGE QRS SEPTAL INFARCT (CITED ON OR BEFORE 11-AUG-2017) T WAVE ABNORMALITY, CONSIDER INFEROLATERAL ISCHEMIA ABNORMAL ECG WHEN COMPARED WITH ECG OF 31-AUG-2018 11:27, NO SIGNIFICANT CHANGE WAS FOUND Confirmed by ARIANNA HARTLEY MD ([id number]) on 09/02/2018 3:46:35 PM Referred By: Confirmed By:ARIANNA HARTLEY MD
--- NOTE | 2018-09-02 15:53 | PDOC ---
History of Present Illness - General Chief Complaint: Shortness of Breath Stated Complaint: SOB Time Seen by Provider: 09/02/18 14:56 History Source: Patient Exam Limitations: No Limitations - History of Present Illness Initial Comments: 09/02/18 15:47 Pt is a 68yo M with PMH of Mesothelioma (diagnosed 2017 on chemotherapy q2w most recent therapy 2 d ago), Afib (on Eliquis), CHF, COPD/Asthma (not on home O2), HTN, HLD presenting to ED with complaints of SOB x 8 days getting worse. Pt states he feels more short of breath when he gets out of bed and is moving around. He states that he has been elevating the head of the bed but can lie flat sometimes. Also endorsing bilateral edema of the legs. He endorses sporadic chest pain in the middle of his chest that feels like a knot and does not radiate but is not experiencing it right now. He denies back pain, syncope, headache, palpitations, cough, hemoptysis, recent travel, fevers, chills. PMD: Varsha Cards: Soumya Pulm: Oscar Onc: Trent PMH: see hpi PSH: lung biopsy Meds: see med rec Allergies: sulfur Social: occasional alcohol use. Quit tobacco 2 years ago Past History - Past Medical History Allergies/Adverse Reactions: Allergies Allergy/AdvReac Type Severity Reaction Status Date / Time sulfur [From Sulfur-8] Allergy Mild Rash Verified 09/02/18 15:00 Home Medications: Ambulatory Orders Amlodipine Besylate [Norvasc -] 5 mg PO DAILY 08/11/17 Aspirin [Ecotrin] 81 mg PO DAILY 08/11/17 Carvedilol 12.5 mg PO DAILY 08/11/17 Fenofibrate [Lipofen] 160 mg PO DAILY 08/11/17 Folic Acid 1 mg PO DAILY 08/11/17 Furosemide [Lasix] 40 mg PO BID 08/11/17 Omeprazole Magnesium [Prilosec Otc] 20 mg PO BID 08/11/17 Budesonide/Formeterol Fumarate [SYMBICORT 80/4.5mcg -] 2 inh IH DAILY 07/12/18 Ipratropium/Albuterol Sulfate [Combivent Respimat 20-100 Mcg] 4 gm IH BID Lactobacillus Acidophilus [Bacid -] 1 each PO DAILY 07/13/18 Albuterol 2.5/Ipratropium 0.5 [Duoneb -] 1 neb IH QID PRN #3 vial.neb. 07/20/18 Apixaban [Eliquis] 5 mg PO BID #60 tablet 07/20/18 Nebulizer [Compact Ultrasonic Nebulizer] 1 each MC DAILY PRN #1 each 07/20/18 Lactobacillus Acidophilus [Probiotic] 1 each PO DAILY 09/02/18 Potassium Chloride 20 meq PO DAILY 09/02/18 Anemia: No Asthma: Yes Cancer: Yes (mesothelioma) Cardiac Disorders: Yes CVA: No COPD: Yes CHF: Yes Dementia: No Diabetes: No GI Disorders: No Disorders: No HTN: No Hypercholesterolemia: Yes Kidney Stones: Yes Liver Disease: No Seizures: No Thyroid Disease: No Lung CA: (MESOTHELIOMA) - Surgical History Lung Surgery: Yes (lung biopsy) - Suicide/Smoking/Psychosocial Hx Smoking History: Former smoker Have you smoked in the past 12 months: No If you are a former smoker, when did you quit?: 8 years Information on smoking cessation initiated: No Hx Alcohol Use: No Drug/Substance Use Hx: No Substance Use Type: None Review of Systems - Review of Systems Constitutional: Yes: Other (weight gain). No: Chills, Fever HEENTM: No: Blurred Vision, Throat Pain Respiratory: Yes: Orthopnea, SOB with Exertion, SOB at Rest. No: Cough, Hemoptysis Cardiac (ROS): Yes: See HPI, Chest Pain, Edema. No: Lightheadedness, Palpitations, Syncope ABD/GI: No: Constipated, Diarrhea, Nausea, Rectal Bleeding, Vomiting, Tarry Stools : No: Burning, Dysuria, Hematuria Musculoskeletal: No: Back Pain, Joint Pain, Neck Pain Integumentary: No: Symptoms Reported Neurological: No: Headache, Numbness, Tingling, Tremors *Physical Exam - Vital Signs Last Vital Signs Temp Pulse Resp BP Pulse Ox 97.9 F 89 22 H 108/75 96 09/02/18 15:00 09/02/18 15:00 09/02/18 15:00 09/02/18 15:00 09/02/18 15:00 - Physical Exam General Appearance: Yes: Nourished, Appropriately Dressed, Mild Distress HEENT: positive: EOMI, SAMMY. negative: Scleral Icterus (R), Scleral Icterus (L) , Nasal Congestion Neck: positive: Trachea midline, Supple. negative: Lymphadenopathy (R), Lymphadenopathy (L) Respiratory/Chest: positive: Decreased Breath Sounds. negative: Crackles, Rales , Rhonchi, Stridor, Wheezing Cardiovascular: positive: S1, S2, Irregularly Irregular. negative: Edema, JVD, Murmur Vascular Pulses: Carotid (R): 2+, Carotid (L): 2+, Dorsalis-Pedis (R): 2+, Doralis-Pedis (L): 2+ Gastrointestinal/Abdominal: positive: Normal Bowel Sounds, Protuberent. negative: Guarding, Rebound, Tenderness Musculoskeletal: negative: CVA Tenderness Extremity: positive: Normal Capillary Refill, Pelvis Stable, Pedal Edema. 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 intact, Fully Oriented, Alert, Normal Mood/ Affect, Normal Response, Motor Strength 5/5 Moderate Sedation - Procedure Monitoring Vital Signs: Procedure Monitoring Vital Signs Temperature 97.9 F 09/02/18 15:00 Pulse Rate 89 09/02/18 15:00 Respiratory Rate 22 H 09/02/18 15:00 Blood Pressure 108/75 09/02/18 15:00 O2 Sat by Pulse Oximetry (%) 96 09/02/18 15:00 ED Treatment Course - LABORATORY CBC & Chemistry Diagram: 09/02/18 15:38 09/02/18 15:38 - RADIOLOGY Radiology Studies Ordered: Category Date Time Status CHEST X-RAY PORTABLE* [RAD] Stat Radiology 09/02/18 15:43 Ordered Medical Decision Making - Medical Decision Making 09/02/18 15:53 Pt is a 68yo M with PMH of Mesothelioma (diagnosed 2017 on chemotherapy q2w most recent therapy 2 d ago), Afib (on Eliquis), CHF, COPD/Asthma (not on home O2), HTN, HLD presenting to ED with complaints of SOB x 8 days getting worse. Pt states he feels more short of breath when he gets out of bed and is moving around. He states that he has been elevating the head of the bed but can lie flat sometimes. Also endorsing bilateral edema of the legs. He endorses sporadic chest pain in the middle of his chest that feels like a knot and does not radiate but is not experiencing it right now. He denies pleuritic chest pain , back pain, syncope, headache, palpitations, cough, hemoptysis, recent travel, fevers, chills. Vitals: wnl, saturating 99% on 2L NC PE: decreased breath sounds at bases, bilateral pitting edema to knees Ddx includes but not limited to: CHF exacerbation, COPD exacerbation, effusion, PE, ACS, PNA, infectious etiology -lower suspicion for PE given pt is on AC, no palpitations, no pleuritic chest pain -cbc, cmp, trop, bnp, coags, ua -CXR, EKG -lasix 40mg iv 09/02/18 17:08 BNP 1k Trop did not result. Called lab, said they will work on it 09/02/18 17:17 trop negative. CXR shows increased markings bilaterally suspicious for mild pulmonary venous congestion. Cannot rule out superimposed interstitial infiltrates. EKG: afib. low voltage. No robin or depressions. admit for chf exacerbation. *DC/Admit/Observation/Transfer Diagnosis at time of Disposition: CHF exacerbation Qualifiers: Heart failure type: unspecified Qualified Code(s): I50.9 - Heart failure, unspecified - Discharge Dispostion Condition at time of disposition: Good Decision to Admit order: Yes - Referrals - Patient Instructions - Post Discharge Activity
--- NOTE | 2018-09-02 16:01 | PDOC ---
Attending Attestation - Resident Resident Name: Nan Hagan - ED Attending Attestation I have performed the following: I have examined & evaluated the patient, The case was reviewed & discussed with the resident, I agree w/resident's findings & plan, Exceptions are as noted - HPI HPI: 09/02/18 17:22 68 y/o male with hx/o copd, chf, mesotheleoma on chemo biweekly c/o increasing sob for the past 7-14 days, with b/l Les edema, casiano, and orthopnea despite increased lasix dose. pt also c/o upper abd pain w/o n/v/d/melena/brbpr - Physicial Exam PE: 09/02/18 17:28 pt is awake, alert, mildy tachypeic nc. atr perrla, eomi no jvd + bibasilar ronchi/rales irregularly irregular +2 pitting edema b/l - Medical Decision Making 09/02/18 17:28 68 y/o male with multiple comorbidites presents with signs a nd sxs of acute chf excacerbation. will administer iv lasix, will admit for iv diuresis, i/o mesurement, cardiology consult.
[2018-09-02 16:02] LABS: BASO % 1.2 % (0-2.0); EOS % 0.8 % (0-4.5); HEMOGLOBIN 11.2 GM/dL (11.7-16.9); LYMPH % 15.5 % (8-40); MCH 28.7 pg (25.7-33.7); MEAN CELL VOLUME 84.4 fl (80-96); MEAN PLT VOLUME 7.3 fl (7.5-11.1); NEUT % 69.5 % (42.8-82.8); PLATELET COUNT 338 K/MM3 (134-434); RBC 3.92 M/mm3 (4.00-5.60); RDW 16.1 % (11.9-15.9); WHITE BLOOD COUNT 10.4 K/mm3 (4.0-10.0)
[2018-09-02] MEDS ORDERED: FUROSEMIDE 40 MG/4 ML INJECTABLE VIAL IVPUSH ONE (16:11)
[2018-09-02 16:35] LABS: ALBUMIN 3.3 g/dl (3.4-5.0); ALK PHOS 72 U/L (45-117); ANION GAP 7 MMOL/L (8-16); BILIRUBIN,TOTAL 0.5 mg/dL (0.2-1); BLOOD UREA NITROGEN 31 mg/dL (7-18); CALCIUM 8.8 mg/dL (8.5-10.1); CHLORIDE 99 mmol/L (98-107); CO2 34 mmol/L (21-32); CREATININE 1.8 mg/dL (0.55-1.3); GLUCOSE,RANDOM 99 mg/dL (74-106); MAGNESIUM 2.2 mg/dL (1.8-2.4); N-TERMINAL BNP 1016.6 pg/ml (5-125); POTASSIUM 3.7 mmol/L (3.5-5.1); SGOT/AST 52 U/L (15-37); SGPT/ALT 66 U/L (13-61); SODIUM 140 mmol/L (136-145); TOT PROT 6.6 g/dl (6.4-8.2)
[2018-09-02] MEDS ORDERED: FUROSEMIDE 40 MG/4 ML INJECTABLE VIAL ONE (17:02)
[2018-09-02 17:39] LABS: URINE APPEARANCE CLEAR; URINE BILIRUBIN NEGATIVE (<2.0 mg/dL); URINE COLOR LTYELLOW; URINE GLUCOSE (UA) NEGATIVE (NEGATIVE); URINE KETONE NEGATIVE (NEGATIVE); URINE LEUK ESTERASE NEGATIVE (NEGATIVE); URINE NITRITE NEGATIVE (NEGATIVE); URINE PROTEIN NEGATIVE (NEGATIVE); URINE UROBILINOGEN NEGATIVE mg/dL (0.2-1.0)
--- NOTE | 2018-09-02 18:26 | HP ---
Admitting History and Physical - Primary Care Physician PCP: Giovanni Ramirez - Admission History of Present Illness: Pt is a 68yo M with PMH of Mesothelioma (diagnosed 2017 on chemotherapy q2w most recent therapy 2 d ago), Afib (on Eliquis), CHF, COPD/Asthma (not on home O2), HTN, HLD presenting to ED with complaints of SOB x 8 days getting worse. Pt states he feels more short of breath when he gets out of bed and is moving around. He states that he has been elevating the head of the bed but can lie flat sometimes. Also endorsing bilateral edema of the legs. He endorses sporadic chest pain in the middle of his chest that feels like a knot and does not radiate but is not experiencing it right now. He denies back pain, syncope, headache, palpitations, cough, hemoptysis, recent travel, fevers, chills. 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 [employer] History of Recent Travel: No Home Medications - Allergies Allergies/Adverse Reactions: Allergies Allergy/AdvReac Type Severity Reaction Status Date / Time sulfur [From Sulfur-8] Allergy Mild Rash Verified 09/02/18 15:00 - Home Medications Home Medications: Ambulatory Orders Amlodipine Besylate [Norvasc -] 5 mg PO DAILY 08/11/17 Aspirin [Ecotrin] 81 mg PO DAILY 08/11/17 Carvedilol 12.5 mg PO DAILY 08/11/17 Fenofibrate [Lipofen] 160 mg PO DAILY 08/11/17 Folic Acid 1 mg PO DAILY 08/11/17 Furosemide [Lasix] 40 mg PO BID 08/11/17 Omeprazole Magnesium [Prilosec Otc] 20 mg PO BID 08/11/17 Budesonide/Formeterol Fumarate [SYMBICORT 80/4.5mcg -] 2 inh IH DAILY 07/12/18 Ipratropium/Albuterol Sulfate [Combivent Respimat 20-100 Mcg] 4 gm IH BID Lactobacillus Acidophilus [Bacid -] 1 each PO DAILY 07/13/18 Albuterol 2.5/Ipratropium 0.5 [Duoneb -] 1 neb IH QID PRN #3 vial.neb. 07/20/18 Apixaban [Eliquis] 5 mg PO BID #60 tablet 07/20/18 Nebulizer [Compact Ultrasonic Nebulizer] 1 each MC DAILY PRN #1 each 07/20/18 Lactobacillus Acidophilus [Probiotic] 1 each PO DAILY 09/02/18 Potassium Chloride 20 meq PO DAILY 09/02/18 Family Disease History - Family Disease History Family Disease History: Other: Father (Unknown medical conditions), Mother ( Alive, CVA), Brother (1, HTN), Sister (1, HTN), Son (2, healthy), Daughter (1, healthy) Physical Examination Vital Signs: Vital Signs Temperature 97.9 F 09/02/18 15:00 Pulse Rate 89 09/02/18 17:07 Respiratory Rate 20 09/02/18 17:07 Blood Pressure 106/76 09/02/18 17:07 O2 Sat by Pulse Oximetry (%) 98 09/02/18 17:07 Constitutional: Yes: No Distress HENT: Yes: Atraumatic Neck: Yes: Supple Cardiovascular: Yes: Regular Rate and Rhythm Respiratory: Yes: Rales, Rhonchi Gastrointestinal: Yes: Normal Bowel Sounds Extremities: Yes: WNL Edema: Yes Edema: LLE: Trace, RLE: Trace Neurological: Yes: Alert, Oriented Labs: CBC, BMP 09/02/18 15:38 09/02/18 15:38 Imaging - Results X-ray: Report Reviewed Problem List - Problems (1) Asthma Assessment/Plan: prn nebs Code(s): J45.909 - UNSPECIFIED ASTHMA, UNCOMPLICATED (2) COPD exacerbation Code(s): J44.1 - CHRONIC OBSTRUCTIVE PULMONARY DISEASE W (ACUTE) EXACERBATION (3) HTN (hypertension) Assessment/Plan: continue homemeds Code(s): I10 - ESSENTIAL (PRIMARY) HYPERTENSION (4) Mesothelioma (pleural) Code(s): C45.0 - MESOTHELIOMA OF PLEURA (5) Shortness of breath Code(s): R06.02 - SHORTNESS OF BREATH (6) CHF exacerbation Code(s): I50.9 - HEART FAILURE, UNSPECIFIED Qualifiers: Heart failure type: unspecified Qualified Code(s): I50.9 - Heart failure, unspecified Assessment/Plan Laboratory Tests 09/02/18 09/02/18 09/02/18 15:38 15:38 15:38 WBC 10.4 H RBC 3.92 L Hgb 11.2 L Hct 33.0 L MCV 84.4 MCH 28.7 MCHC 34.0 RDW 16.1 H Plt Count 338 MPV 7.3 L Absolute Neuts (auto) 7.2 Neutrophils % 69.5 Lymphocytes % 15.5 Monocytes % 13.0 H Eosinophils % 0.8 Basophils % 1.2 Nucleated RBC % 0 Sodium 140 Potassium 3.7 Chloride 99 Carbon Dioxide 34 H Anion Gap 7 L BUN 31 H Creatinine 1.8 H Creat Clearance w eGFR 37.71 Random Glucose 99 Calcium 8.8 Magnesium 2.2 Total Bilirubin 0.5 AST 52 H ALT 66 H Alkaline Phosphatase 72 Troponin I < 0.02 B-Natriuretic Peptide 1016.6 H Total Protein 6.6 Albumin 3.3 L Urine Color Urine Appearance Urine pH Ur Specific [place] Urine Protein Urine Glucose (UA) Urine Ketones Urine Blood Urine Nitrite Urine Bilirubin Urine Urobilinogen Ur Leukocyte Esterase 09/02/18 17:15 WBC RBC Hgb Hct MCV MCH MCHC RDW Plt Count MPV Absolute Neuts (auto) Neutrophils % Lymphocytes % Monocytes % Eosinophils % Basophils % Nucleated RBC % Sodium Potassium Chloride Carbon Dioxide Anion Gap BUN Creatinine Creat Clearance w eGFR Random Glucose Calcium Magnesium Total Bilirubin AST ALT Alkaline Phosphatase Troponin I B-Natriuretic Peptide Total Protein Albumin Urine Color Ltyellow Urine Appearance Clear Urine pH 6.0 Ur Specific [place] 1.010 Urine Protein Negative Urine Glucose (UA) Negative Urine Ketones Negative Urine Blood Negative Urine Nitrite Negative Urine Bilirubin Negative Urine Urobilinogen Negative Ur Leukocyte Esterase Negative Active Medications Generic Name Dose Route Start Last Admin Trade Name Freq PRN Reason Stop Dose Admin Acetaminophen 650 mg 09/02/18 21:50 09/05/18 21:19 Tylenol - PO 650 mg Q6H PRN Administration FEVER Amlodipine Besylate 5 mg 09/03/18 10:00 09/06/18 09:57 Norvasc - PO 5 mg DAILY JANINE Administration Apixaban 5 mg 09/02/18 22:00 09/06/18 09:57 Eliquis - PO 5 mg BID JANINE Administration Aspirin 81 mg 09/03/18 10:00 09/06/18 09:57 Ecotrin - PO 81 mg DAILY JANINE Administration Budesonide/Formoterol Fumarate 2 puff 09/03/18 10:00 09/06/18 09:58 Symbicort 80/4.5mcg - IH 2 puff BID JANINE Administration Carvedilol 12.5 mg 09/03/18 10:00 09/06/18 09:57 Coreg - PO 12.5 mg BID JANINE Administration Fenofibric Acid 135 mg 09/03/18 10:00 09/06/18 09:57 Trilipix - PO 135 mg DAILY JANINE Administration Folic Acid 1 mg 09/03/18 10:00 09/06/18 09:57 Folic Acid - PO 1 mg DAILY JANINE Administration Furosemide 80 mg 09/05/18 11:23 09/06/18 13:49 Lasix Injection - IVPUSH 80 mg BID@0600,1400 JANINE Administration Potassium Chloride 20 meq 09/03/18 10:00 09/06/18 09:57 K-Dur - PO 20 meq DAILY JANINE Administration
[2018-09-02 18:36] LABS: INR 1.74 (0.83-1.09); PROTHROMBIN TIME (PATIENT) 20.7 SEC (9.7-13.0)
[2018-09-02] MEDS ORDERED: FUROSEMIDE 40 MG TABLET (FP) ONE (22:50)
[2018-09-02] MEDS ORDERED: APIXABAN 5 MG TABLET PO ONE (22:50)
[2018-09-02] MEDS: FUROSEMIDE 40 MG TABLET (FP) PO SCH (23:24)
[2018-09-02] MEDS: APIXABAN 5 MG TABLET PO SCH (23:24)
[2018-09-03] MEDS: ACETAMINOPHEN 325 MG TABLET (FP) PO PRN (06:36)
[2018-09-03] MEDS: FUROSEMIDE 40 MG TABLET (FP) PO SCH (06:36)
[2018-09-03 08:03] LABS: BASO % 0.5 % (0-2.0); EOS % 1.4 % (0-4.5); HEMATOCRIT 31.2 % (35.4-49); HEMOGLOBIN 10.5 GM/dL (11.7-16.9); LYMPH % 22.5 % (8-40); MCH 28.2 pg (25.7-33.7); MCHC 33.7 g/dl (32.0-35.9); MEAN CELL VOLUME 83.5 fl (80-96); MEAN PLT VOLUME 7.4 fl (7.5-11.1); MONO % 13.7 % (3.8-10.2); NEUT % 61.9 % (42.8-82.8); PLATELET COUNT 326 K/MM3 (134-434); RBC 3.74 M/mm3 (4.00-5.60); RDW 16.6 % (11.9-15.9); WHITE BLOOD COUNT 7.7 K/mm3 (4.0-10.0)
[2018-09-03 08:17] LABS: ALBUMIN 3.2 g/dl (3.4-5.0); ALK PHOS 59 U/L (45-117); ANION GAP 8 MMOL/L (8-16); BILIRUBIN,TOTAL 0.6 mg/dL (0.2-1); BLOOD UREA NITROGEN 31 mg/dL (7-18); CALCIUM 8.7 mg/dL (8.5-10.1); CHLORIDE 101 mmol/L (98-107); CO2 33 mmol/L (21-32); CREATININE 1.7 mg/dL (0.55-1.3); GLUCOSE,RANDOM 83 mg/dL (74-106); POTASSIUM 3.5 mmol/L (3.5-5.1); SGOT/AST 27 U/L (15-37); SGPT/ALT 60 U/L (13-61); SODIUM 142 mmol/L (136-145); TOT PROT 6.3 g/dl (6.4-8.2)
[2018-09-03] MEDS: ASPIRIN COATED 81 MG TABLET.EC PO SCH (10:15)
[2018-09-03] MEDS: APIXABAN 5 MG TABLET PO SCH ×2 (10:15→21:16)
[2018-09-03] MEDS: amLODIPine BESYLATE 5 MG TABLET (FP) PO SCH (10:15)
[2018-09-03] MEDS: FOLIC ACID 1 MG TABLET (FP) PO SCH (10:16)
[2018-09-03] MEDS: FENOFIBRIC ACID 135 MG CAP PO SCH (10:16)
[2018-09-03] MEDS: CARVEDILOL 12.5 MG TABLET (FP) PO SCH ×2 (10:16→21:16)
[2018-09-03] MEDS: POTASSIUM CHLORIDE TABS 20 MEQ TABLET.ER (FP) PO SCH (10:16)
[2018-09-03] MEDS: BUDESONIDE/FORMETEROL FUMARATE 80/4.5 mcg INHALER IH SCH ×2 (11:04→21:17)
--- NOTE | 2018-09-03 11:29 | CON.CARD ---
Cardiology Consult (text) - Consultation Consultation Note: Chief Complaint: sob, le edema History of Present Illness: 68 y/o M with worsening SOB for 1 week with le edema as well. Admitted here 2018 for chf. No cp palps dizzy loc pnd orthopnea. Sees dr coleman for cardiology. PMH: asthma, HLD, CHF (unknown when last ECHO), nephrolithiasis, mesothelioma ( dx 2017) - Past Medical History Cardio/Vascular: Yes: CHF, Hyperlipdemia Pulmonary: Yes: Asthma - Smoking History Smoking history: Never smoked Have you smoked in the past 12 months: No If you are a former smoker, when did you quit?: LAST YEAR Home Medications - Allergies Allergies/Adverse Reactions: Allergies Allergy/AdvReac Type Severity Reaction Status Date / Time sulfur [From Sulfur-8] Allergy Mild Rash Verified 09/02/18 15:00 - Home Medications Home Medications Medication Instructions Recorded Amlodipine Besylate [Norvasc -] 5 mg PO DAILY 08/11/17 Aspirin [Ecotrin] 81 mg PO DAILY 08/11/17 Carvedilol 12.5 mg PO DAILY 08/11/17 Fenofibrate [Lipofen] 160 mg PO DAILY 08/11/17 Folic Acid 1 mg PO DAILY 08/11/17 Furosemide [Lasix] 40 mg PO BID 08/11/17 Omeprazole Magnesium [Prilosec Otc] 20 mg PO BID 08/11/17 Budesonide/Formeterol Fumarate 2 inh IH DAILY 07/12/18 [SYMBICORT 80/4.5mcg -] Ipratropium/Albuterol Sulfate 4 gm IH BID 07/12/18 [Combivent Respimat 20-100 Mcg] Lactobacillus Acidophilus [Bacid -] 1 each PO DAILY 07/13/18 Albuterol 2.5/Ipratropium 0.5 1 neb IH QID PRN #3 vial.neb. 07/20/18 [Duoneb -] Apixaban [Eliquis] 5 mg PO BID #60 tablet 07/20/18 Nebulizer [Compact Ultrasonic 1 each MC DAILY PRN #1 each 07/20/18 Nebulizer] Lactobacillus Acidophilus 1 each PO DAILY 09/02/18 [Probiotic] Potassium Chloride 20 meq PO DAILY 09/02/18 Family Disease History - Family Disease History Family History: Denies (no known cmp) Review of Systems - Review of Systems Constitutional: denies: Chills, Fever Eyes: denies: Eye Pain HENT: denies: Nasal Congestion Neck: denies: Stiffness Cardiovascular: denies: Palpitations Respiratory: denies: Orthopnea, PND Gastrointestinal: denies: Diarrhea, Rectal Bleeding Genitourinary: denies: Burning, Hematuria Musculoskeletal: denies: Muscle Pain Integumentary: denies: Rash Neurological: denies: Numbness, Seizure, Syncope Endocrine: denies: Excessive Sweating Hematology/Lymphatic: denies: Excessive Bleeding Vital Signs: Vital Signs Period Temp Pulse Resp BP Sys/Clements Pulse Ox Last 24 Hr 97.9 F-98.7 F 89-106 19-22 92-121/59-84 96-99 Constitutional: Yes: Well Nourished, No Distress Eyes: No: Sclera Icterus HENT: No: Nasal Congestion Neck: No: Decreased ROM Respiratory: Yes: CTA Bilaterally, Diminished (bases). No: Accessory Muscle Use , Rales, Wheezes Gastrointestinal: Yes: Normal Bowel Sounds, Distention. No: Hepatomegaly, Palpable Mass, Tenderness Cardiovascular: Yes: Regular Rate and Rhythm JVD: No Carotid Bruit: No PMI: Non-Displaced Heart Sounds: Yes: S1, S2. No: Gallop Murmur: No: Systolic Murmur, Diastolic Murmur Extremities: No: Cool, Cyanosis Edema: 1+ pedal edema bl Peripheral Pulses: 2+ Left Carotid, 2+ Right Carotid, 2+ Left Doralis Pedis, 2+ Right Dorsalis Pedis Integumentary: No: Jaundice Neurological: Yes: Alert, Oriented (x3) Psychiatric: No: Agitated Laboratory Last Values WBC 7.7 K/mm3 (4.0-10.0) 09/03/18 06:00 RBC 3.74 M/mm3 (4.00-5.60) L 09/03/18 06:00 Hgb 10.5 GM/dL (11.7-16.9) L 09/03/18 06:00 Hct 31.2 % (35.4-49) L 09/03/18 06:00 MCV 83.5 fl (80-96) 09/03/18 06:00 MCH 28.2 pg (25.7-33.7) 09/03/18 06:00 MCHC 33.7 g/dl (32.0-35.9) 09/03/18 06:00 RDW 16.6 % (11.9-15.9) H 09/03/18 06:00 Plt Count 326 K/MM3 (134-434) 09/03/18 06:00 MPV 7.4 fl (7.5-11.1) L 09/03/18 06:00 Absolute Neuts (auto) 4.7 K/mm3 (1.5-8.0) 09/03/18 06:00 Neutrophils % 61.9 % (42.8-82.8) 09/03/18 06:00 Lymphocytes % 22.5 % (8-40) D 09/03/18 06:00 Monocytes % 13.7 % (3.8-10.2) H 09/03/18 06:00 Eosinophils % 1.4 % (0-4.5) 09/03/18 06:00 Basophils % 0.5 % (0-2.0) 09/03/18 06:00 Nucleated RBC % 0 % (0-0) 09/03/18 06:00 PT with INR 20.70 SEC (9.7-13.0) H 09/02/18 15:38 INR 1.74 (0.83-1.09) H 09/02/18 15:38 Sodium 142 mmol/L (136-145) 09/03/18 06:00 Potassium 3.5 mmol/L (3.5-5.1) 09/03/18 06:00 Chloride 101 mmol/L (98-107) 09/03/18 06:00 Carbon Dioxide 33 mmol/L (21-32) H 09/03/18 06:00 Anion Gap 8 MMOL/L (8-16) 09/03/18 06:00 BUN 31 mg/dL (7-18) H 09/03/18 06:00 Creatinine 1.7 mg/dL (0.55-1.3) H 09/03/18 06:00 Creat Clearance w eGFR 40.28 (>60) 09/03/18 06:00 Random Glucose 83 mg/dL (74-106) 09/03/18 06:00 Calcium 8.7 mg/dL (8.5-10.1) 09/03/18 06:00 Magnesium 2.2 mg/dL (1.8-2.4) 09/02/18 15:38 Total Bilirubin 0.6 mg/dL (0.2-1) 09/03/18 06:00 AST 27 U/L (15-37) 09/03/18 06:00 ALT 60 U/L (13-61) 09/03/18 06:00 Alkaline Phosphatase 59 U/L (45-117) 09/03/18 06:00 Creatine Kinase 99 U/L (26-308) 09/02/18 23:35 Troponin I 0.02 ng/ml (0.00-0.05) 09/02/18 23:35 B-Natriuretic Peptide 1016.6 pg/ml (5-125) H 09/02/18 15:38 Total Protein 6.3 g/dl (6.4-8.2) L 09/03/18 06:00 Albumin 3.2 g/dl (3.4-5.0) L 09/03/18 06:00 Urine Color Ltyellow 09/02/18 17:15 Urine Appearance Clear 09/02/18 17:15 Urine pH 6.0 (5.0-8.0) 09/02/18 17:15 Ur Specific [place] 1.010 (1.010-1.035) 09/02/18 17:15 Urine Protein Negative (NEGATIVE) 09/02/18 17:15 Urine Glucose (UA) Negative (NEGATIVE) 09/02/18 17:15 Urine Ketones Negative (NEGATIVE) 09/02/18 17:15 Urine Blood Negative (NEGATIVE) 09/02/18 17:15 Urine Nitrite Negative (NEGATIVE) 09/02/18 17:15 Urine Bilirubin Negative (<2.0 mg/dL) 09/02/18 17:15 Urine Urobilinogen Negative mg/dL (0.2-1.0) 09/02/18 17:15 Ur Leukocyte Esterase Negative (NEGATIVE) 09/02/18 17:15 ECG:afib, rate 95, inferolat twi, no sig change prior echo in 10/15 Dr. Meyer: normal LV, no pericardial effusion (no other signif abnormality) echo 06/2018 nl LV function, mildly reduced RV function, borderline LA enlargement, mild MR, mild TR, RVSP nl, small pericardial effusion <1 cm, no echo indication of tamponade tele: afib, rate controlled cxr: mild chf a/p: SOB, acute diastolic chf, hx of pericardial effusion, mesothelioma, asthma: -recent echos unremarkable -here with mild vol overload. no signs acs. -will start lasix iv 40 bid. monitor daily wts, chem7 afib - continue home eliquis - continue carvedilol, rate ok HTN: -bp controlled -cont home meds CKD: -stable, monitor with lasix
[2018-09-03] MEDS ORDERED: FUROSEMIDE 40 MG/4 ML INJECTABLE VIAL IVPUSH ONE (14:00)
--- NOTE | 2018-09-03 16:34 | PN ---
Progress Note, Physician Chief Complaint: doing well - Current Medication List Current Medications: Active Medications Acetaminophen (Tylenol -) 650 mg PO Q6H PRN PRN Reason: FEVER Last Admin: 09/03/18 06:36 Dose: 650 mg Amlodipine Besylate (Norvasc -) 5 mg PO DAILY [facility] Last Admin: 09/03/18 10:15 Dose: 5 mg Apixaban (Eliquis -) 5 mg PO BID [facility] Last Admin: 09/03/18 10:15 Dose: 5 mg Aspirin (Ecotrin -) 81 mg PO DAILY [facility] Last Admin: 09/03/18 10:15 Dose: 81 mg Budesonide/Formoterol Fumarate (Symbicort 80/4.5mcg -) 2 puff IH BID [facility] Last Admin: 09/03/18 11:04 Dose: 2 puff Carvedilol (Coreg -) 12.5 mg PO BID [facility] Last Admin: 09/03/18 10:16 Dose: 12.5 mg Fenofibric Acid (Trilipix -) 135 mg PO DAILY [facility] Last Admin: 09/03/18 10:16 Dose: 135 mg Folic Acid (Folic Acid -) 1 mg PO DAILY [facility] Last Admin: 09/03/18 10:16 Dose: 1 mg Furosemide (Lasix Injection -) 40 mg IVPUSH BID@0600,1400 [facility] Potassium Chloride (K-Dur -) 20 meq PO DAILY [facility] Last Admin: 09/03/18 10:16 Dose: 20 meq - Objective Vital Signs: Vital Signs Temperature 98.2 F 09/03/18 14:15 Pulse Rate 80 09/03/18 14:15 Respiratory Rate 22 H 09/03/18 14:15 Blood Pressure 128/72 09/03/18 14:15 O2 Sat by Pulse Oximetry (%) 97 09/03/18 09:00 Constitutional: Yes: No Distress HENT: Yes: Atraumatic Neck: Yes: Supple Cardiovascular: Yes: Regular Rate and Rhythm Respiratory: Yes: Rhonchi Extremities: Yes: WNL Edema: No Peripheral Pulses WNL: Yes Neurological: Yes: Alert, Oriented Labs: CBC, BMP 09/03/18 06:00 09/03/18 06:00 INR, PTT INR 1.74 (0.83-1.09) H 09/02/18 15:38 Problem List - Problems (1) Asthma Assessment/Plan: prn nebs Code(s): J45.909 - UNSPECIFIED ASTHMA, UNCOMPLICATED (2) COPD exacerbation Assessment/Plan: on inhaler can have prn nebs Code(s): J44.1 - CHRONIC OBSTRUCTIVE PULMONARY DISEASE W (ACUTE) EXACERBATION (3) HTN (hypertension) Assessment/Plan: continue homemeds Code(s): I10 - ESSENTIAL (PRIMARY) HYPERTENSION (4) Mesothelioma (pleural) Code(s): C45.0 - MESOTHELIOMA OF PLEURA (5) Shortness of breath Code(s): R06.02 - SHORTNESS OF BREATH (6) CHF exacerbation Assessment/Plan: iv lasix Code(s): I50.9 - HEART FAILURE, UNSPECIFIED Qualifiers: Heart failure type: unspecified Qualified Code(s): I50.9 - Heart failure, unspecified
[2018-09-04] MEDS: FUROSEMIDE 40 MG/4 ML INJECTABLE VIAL IVPUSH SCH ×2 (06:27→14:33)
[2018-09-04] MEDS: ASPIRIN COATED 81 MG TABLET.EC PO SCH (10:36)
[2018-09-04] MEDS: FOLIC ACID 1 MG TABLET (FP) PO SCH (10:36)
[2018-09-04] MEDS: APIXABAN 5 MG TABLET PO SCH ×2 (10:36→22:56)
[2018-09-04] MEDS: amLODIPine BESYLATE 5 MG TABLET (FP) PO SCH (10:36)
[2018-09-04] MEDS: CARVEDILOL 12.5 MG TABLET (FP) PO SCH ×2 (10:36→22:56)
[2018-09-04] MEDS: POTASSIUM CHLORIDE TABS 20 MEQ TABLET.ER (FP) PO SCH (10:36)
[2018-09-04] MEDS: FENOFIBRIC ACID 135 MG CAP PO SCH (10:36)
[2018-09-04] MEDS: BUDESONIDE/FORMETEROL FUMARATE 80/4.5 mcg INHALER IH SCH ×2 (10:37→22:56)
--- NOTE | 2018-09-04 11:30 | PN ---
Progress Note (short form) - Note Progress Note: s: no cp palps dizzy; sob persists Current Medications Generic Name Dose Route Start Last Admin Trade Name Hoq PRN Reason Stop Dose Admin Acetaminophen 650 mg 09/02/18 21:50 09/03/18 06:36 Tylenol - PO 650 mg Q6H PRN Administration FEVER Amlodipine Besylate 5 mg 09/03/18 10:00 09/04/18 10:36 Norvasc - PO 5 mg DAILY [facility] Administration Apixaban 5 mg 09/02/18 22:00 09/04/18 10:36 Eliquis - PO 5 mg BID [facility] Administration Aspirin 81 mg 09/03/18 10:00 09/04/18 10:36 Ecotrin - PO 81 mg DAILY [facility] Administration Budesonide/Formoterol Fumarate 2 puff 09/03/18 10:00 09/04/18 10:37 Symbicort 80/4.5mcg - IH 2 puff BID [facility] Administration Carvedilol 12.5 mg 09/03/18 10:00 09/04/18 10:36 Coreg - PO 12.5 mg BID [facility] Administration Fenofibric Acid 135 mg 09/03/18 10:00 09/04/18 10:36 Trilipix - PO 135 mg DAILY [facility] Administration Folic Acid 1 mg 09/03/18 10:00 09/04/18 10:36 Folic Acid - PO 1 mg DAILY [facility] Administration Furosemide 40 mg 09/04/18 06:00 09/04/18 06:27 Lasix Injection - IVPUSH 40 mg BID@0600,1400 [facility] Administration Potassium Chloride 20 meq 09/03/18 10:00 09/04/18 10:36 K-Dur - PO 20 meq DAILY [facility] Administration Vital Signs Period Temp Pulse Resp BP Sys/Clements Pulse Ox Last 24 Hr 98.2 F-99 F 80-98 18-22 105-128/70-84 100-100 Constitutional: Yes: Well Nourished, No Distress Eyes: No: Sclera Icterus HENT: No: Nasal Congestion Neck: No: Decreased ROM Respiratory: Yes: CTA Bilaterally, Diminished (bases). No: Accessory Muscle Use , Rales, Wheezes Gastrointestinal: Yes: Normal Bowel Sounds, Distention. No: Hepatomegaly, Palpable Mass, Tenderness Cardiovascular: Yes: Regular Rate and Rhythm JVD: No Carotid Bruit: No PMI: Non-Displaced Heart Sounds: Yes: S1, S2. No: Gallop Murmur: No: Systolic Murmur, Diastolic Murmur Extremities: No: Cool, Cyanosis Edema: 1+ pedal edema bl Integumentary: No: Jaundice Neurological: Yes: Alert, Oriented (x3) Psychiatric: No: Agitated CBC, BMP 09/03/18 06:00 09/03/18 06:00 ECG:afib, rate 95, inferolat twi, no sig change prior echo in 10/15 Dr. Meyer: normal LV, no pericardial effusion (no other signif abnormality) echo 06/2018 nl LV function, mildly reduced RV function, borderline LA enlargement, mild MR, mild TR, RVSP nl, small pericardial effusion <1 cm, no echo indication of tamponade tele: afib, rate controlled cxr: mild chf a/p: SOB, acute diastolic chf, hx of pericardial effusion, mesothelioma, asthma: -recent echos unremarkable -here with mild vol overload. no signs acs. -cont lasix iv 40 bid. monitor daily wts, chem7 afib - continue home eliquis - continue carvedilol, rate ok HTN: -bp controlled -cont home meds CKD: -stable, monitor with lasix
--- NOTE | 2018-09-04 23:41 | PN ---
Progress Note, Physician - Current Medication List Current Medications: Active Medications Acetaminophen (Tylenol -) 650 mg PO Q6H PRN PRN Reason: FEVER Last Admin: 09/03/18 06:36 Dose: 650 mg Amlodipine Besylate (Norvasc -) 5 mg PO DAILY [facility] Last Admin: 09/04/18 10:36 Dose: 5 mg Apixaban (Eliquis -) 5 mg PO BID [facility] Last Admin: 09/04/18 22:56 Dose: 5 mg Aspirin (Ecotrin -) 81 mg PO DAILY [facility] Last Admin: 09/04/18 10:36 Dose: 81 mg Budesonide/Formoterol Fumarate (Symbicort 80/4.5mcg -) 2 puff IH BID [facility] Last Admin: 09/04/18 22:56 Dose: 2 puff Carvedilol (Coreg -) 12.5 mg PO BID [facility] Last Admin: 09/04/18 22:56 Dose: 12.5 mg Fenofibric Acid (Trilipix -) 135 mg PO DAILY [facility] Last Admin: 09/04/18 10:36 Dose: 135 mg Folic Acid (Folic Acid -) 1 mg PO DAILY [facility] Last Admin: 09/04/18 10:36 Dose: 1 mg Furosemide (Lasix Injection -) 40 mg IVPUSH BID@0600,1400 [facility] Last Admin: 09/04/18 14:33 Dose: 40 mg Potassium Chloride (K-Dur -) 20 meq PO DAILY [facility] Last Admin: 09/04/18 10:36 Dose: 20 meq - Objective Vital Signs: Vital Signs Temperature 98.5 F 09/04/18 18:00 Pulse Rate 90 09/04/18 18:00 Respiratory Rate 18 09/04/18 18:00 Blood Pressure 118/68 09/04/18 18:00 O2 Sat by Pulse Oximetry (%) 100 09/04/18 09:00 Constitutional: Yes: No Distress HENT: Yes: Atraumatic Neck: Yes: Supple Cardiovascular: Yes: Regular Rate and Rhythm Respiratory: Yes: CTA Bilaterally, Rhonchi Gastrointestinal: Yes: Normal Bowel Sounds, Distention Extremities: Yes: WNL Edema: Yes Edema: LLE: 1+, RLE: 1+ Neurological: Yes: Alert, Oriented Labs: CBC, BMP 09/03/18 06:00 09/03/18 06:00 INR, PTT INR 1.74 (0.83-1.09) H 09/02/18 15:38 Problem List - Problems (1) Asthma Assessment/Plan: prn nebs Code(s): J45.909 - UNSPECIFIED ASTHMA, UNCOMPLICATED (2) COPD exacerbation Assessment/Plan: on inhaler can have prn nebs Code(s): J44.1 - CHRONIC OBSTRUCTIVE PULMONARY DISEASE W (ACUTE) EXACERBATION (3) HTN (hypertension) Assessment/Plan: continue homemeds Code(s): I10 - ESSENTIAL (PRIMARY) HYPERTENSION (4) Mesothelioma (pleural) Code(s): C45.0 - MESOTHELIOMA OF PLEURA (5) Shortness of breath Code(s): R06.02 - SHORTNESS OF BREATH (6) CHF exacerbation Assessment/Plan: iv lasix Code(s): I50.9 - HEART FAILURE, UNSPECIFIED Qualifiers: Heart failure type: unspecified Qualified Code(s): I50.9 - Heart failure, unspecified (7) Pain Assessment/Plan: prn pain meds Code(s): R52 - PAIN, UNSPECIFIED
[2018-09-05] MEDS: ACETAMINOPHEN 325 MG TABLET (FP) PO PRN ×2 (02:22→21:19)
[2018-09-05] MEDS: FUROSEMIDE 40 MG/4 ML INJECTABLE VIAL IVPUSH SCH ×2 (06:03→14:16)
[2018-09-05] MEDS: POTASSIUM CHLORIDE TABS 20 MEQ TABLET.ER (FP) PO SCH (10:18)
[2018-09-05] MEDS: amLODIPine BESYLATE 5 MG TABLET (FP) PO SCH (10:18)
[2018-09-05] MEDS: ASPIRIN COATED 81 MG TABLET.EC PO SCH (10:19)
[2018-09-05] MEDS: FOLIC ACID 1 MG TABLET (FP) PO SCH (10:19)
[2018-09-05] MEDS: CARVEDILOL 12.5 MG TABLET (FP) PO SCH ×2 (10:19→21:19)
[2018-09-05] MEDS: BUDESONIDE/FORMETEROL FUMARATE 80/4.5 mcg INHALER IH SCH ×2 (10:20→21:21)
[2018-09-05] MEDS: FENOFIBRIC ACID 135 MG CAP PO SCH (10:20)
[2018-09-05] MEDS: APIXABAN 5 MG TABLET PO SCH ×2 (10:55→21:19)
[2018-09-05 10:58] LABS: ANION GAP 8 MMOL/L (8-16); BLOOD UREA NITROGEN 27 mg/dL (7-18); CHLORIDE 101 mmol/L (98-107); CO2 33 mmol/L (21-32); CREATININE 1.4 mg/dL (0.55-1.3); GLUCOSE,RANDOM 133 mg/dL (74-106); POTASSIUM 3.3 mmol/L (3.5-5.1); SODIUM 141 mmol/L (136-145)
--- NOTE | 2018-09-05 11:26 | PN ---
Progress Note (short form) - Note Progress Note: s: no cp palps dizzy; sob persists Current Medications Generic Name Dose Route Start Last Admin Trade Name Freq PRN Reason Stop Dose Admin Acetaminophen 650 mg 09/02/18 21:50 09/05/18 02:22 Tylenol - PO 650 mg Q6H PRN Administration FEVER Amlodipine Besylate 5 mg 09/03/18 10:00 09/05/18 10:18 Norvasc - PO 5 mg DAILY [facility] Administration Apixaban 5 mg 09/02/18 22:00 09/05/18 10:55 Eliquis - PO 5 mg BID [facility] Administration Aspirin 81 mg 09/03/18 10:00 09/05/18 10:19 Ecotrin - PO 81 mg DAILY [facility] Administration Budesonide/Formoterol Fumarate 2 puff 09/03/18 10:00 09/05/18 10:20 Symbicort 80/4.5mcg - IH 2 puff BID [facility] Administration Carvedilol 12.5 mg 09/03/18 10:00 09/05/18 10:19 Coreg - PO 12.5 mg BID [facility] Administration Fenofibric Acid 135 mg 09/03/18 10:00 09/05/18 10:20 Trilipix - PO 135 mg DAILY [facility] Administration Folic Acid 1 mg 09/03/18 10:00 09/05/18 10:19 Folic Acid - PO 1 mg DAILY [facility] Administration Furosemide 80 mg 09/05/18 11:23 Lasix Injection - IVPUSH BID@0600,1400 [facility] Potassium Chloride 20 meq 09/03/18 10:00 09/05/18 10:18 K-Dur - PO 20 meq DAILY [facility] Administration Potassium Chloride 40 meq 09/05/18 14:00 K-Dur - PO 09/05/18 14:01 ONCE ONE Vital Signs Period Temp Pulse Resp BP Sys/Clements Pulse Ox Last 24 Hr 97.8 F-98.7 F 80-95 18-20 102-126/50-72 97 Constitutional: Yes: Well Nourished, No Distress Eyes: No: Sclera Icterus HENT: No: Nasal Congestion Neck: No: Decreased ROM Respiratory: Yes: CTA Bilaterally, Diminished (bases). No: Accessory Muscle Use , Rales, Wheezes Gastrointestinal: Yes: Normal Bowel Sounds, +Distention. No: Hepatomegaly, Palpable Mass, Tenderness Cardiovascular: Yes: Regular Rate and Rhythm JVD: No Carotid Bruit: No PMI: Non-Displaced Heart Sounds: Yes: S1, S2. No: Gallop Murmur: No: Systolic Murmur, Diastolic Murmur Extremities: No: Cool, Cyanosis Edema: 1+ pedal edema bl Integumentary: No: Jaundice Neurological: Yes: Alert, Oriented (x3) Psychiatric: No: Agitated CBC, BMP 09/03/18 06:00 09/05/18 09:35 ECG:afib, rate 95, inferolat twi, no sig change prior echo in 10/15 Dr. Meyer: normal LV, no pericardial effusion (no other signif abnormality) echo 06/2018 nl LV function, mildly reduced RV function, borderline LA enlargement, mild MR, mild TR, RVSP nl, small pericardial effusion <1 cm, no echo indication of tamponade tele: afib, rate controlled cxr: mild chf a/p: SOB, acute diastolic chf, hx of pericardial effusion, mesothelioma, asthma: -recent echos unremarkable -here with vol overload. no signs acs. -cont lasix iv 40 bid. -09/05: still volume up, cr stable, will increase to lasix 80 iv bid. monitor daily wts, chem7. afib - continue home eliquis - continue carvedilol, rate ok HTN: -bp controlled -cont home meds CKD: -stable, monitor with lasix
--- NOTE | 2018-09-05 12:53 | PN ---
Progress Note, Physician - Current Medication List Current Medications: Active Medications Acetaminophen (Tylenol -) 650 mg PO Q6H PRN PRN Reason: FEVER Last Admin: 09/05/18 02:22 Dose: 650 mg Amlodipine Besylate (Norvasc -) 5 mg PO DAILY [facility] Last Admin: 09/05/18 10:18 Dose: 5 mg Apixaban (Eliquis -) 5 mg PO BID [facility] Last Admin: 09/05/18 10:55 Dose: 5 mg Aspirin (Ecotrin -) 81 mg PO DAILY [facility] Last Admin: 09/05/18 10:19 Dose: 81 mg Budesonide/Formoterol Fumarate (Symbicort 80/4.5mcg -) 2 puff IH BID [facility] Last Admin: 09/05/18 10:20 Dose: 2 puff Carvedilol (Coreg -) 12.5 mg PO BID [facility] Last Admin: 09/05/18 10:19 Dose: 12.5 mg Fenofibric Acid (Trilipix -) 135 mg PO DAILY [facility] Last Admin: 09/05/18 10:20 Dose: 135 mg Folic Acid (Folic Acid -) 1 mg PO DAILY [facility] Last Admin: 09/05/18 10:19 Dose: 1 mg Furosemide (Lasix Injection -) 80 mg IVPUSH BID@0600,1400 [facility] Potassium Chloride (K-Dur -) 20 meq PO DAILY [facility] Last Admin: 09/05/18 10:18 Dose: 20 meq Potassium Chloride (K-Dur -) 40 meq PO ONCE ONE Stop: 09/05/18 14:01 - Objective Vital Signs: Vital Signs Temperature 97.8 F 09/05/18 05:40 Pulse Rate 80 09/05/18 05:40 Respiratory Rate 18 09/05/18 09:00 Blood Pressure 102/50 L 09/05/18 05:40 O2 Sat by Pulse Oximetry (%) 97 09/05/18 09:00 Constitutional: Yes: No Distress HENT: Yes: Atraumatic Neck: Yes: Supple Cardiovascular: Yes: Regular Rate and Rhythm Respiratory: Yes: CTA Bilaterally Gastrointestinal: Yes: Normal Bowel Sounds, Distention Extremities: Yes: WNL Edema: Yes Edema: LLE: 1+, RLE: 1+ Peripheral Pulses WNL: Yes Neurological: Yes: Alert, Oriented Labs: CBC, BMP 09/03/18 06:00 09/05/18 09:35 INR, PTT INR 1.74 (0.83-1.09) H 09/02/18 15:38 Problem List - Problems (1) Asthma Assessment/Plan: prn nebs Code(s): J45.909 - UNSPECIFIED ASTHMA, UNCOMPLICATED (2) COPD exacerbation Assessment/Plan: on inhaler can have prn nebs Code(s): J44.1 - CHRONIC OBSTRUCTIVE PULMONARY DISEASE W (ACUTE) EXACERBATION (3) HTN (hypertension) Assessment/Plan: continue homemeds Code(s): I10 - ESSENTIAL (PRIMARY) HYPERTENSION (4) Mesothelioma (pleural) Code(s): C45.0 - MESOTHELIOMA OF PLEURA (5) Shortness of breath Code(s): R06.02 - SHORTNESS OF BREATH (6) CHF exacerbation Assessment/Plan: iv lasix Code(s): I50.9 - HEART FAILURE, UNSPECIFIED Qualifiers: Heart failure type: unspecified Qualified Code(s): I50.9 - Heart failure, unspecified
[2018-09-05] MEDS ORDERED: POTASSIUM CHLORIDE TABS 10 MEQ TABLET.ER (FP) PO ONE (14:00)
[2018-09-06] MEDS: FUROSEMIDE 40 MG/4 ML INJECTABLE VIAL IVPUSH SCH ×2 (06:16→13:49)
[2018-09-06 08:47] LABS: BLOOD UREA NITROGEN 27 mg/dL (7-18); CREATININE 1.4 mg/dL (0.55-1.3); GLUCOSE,RANDOM 87 mg/dL (74-106); SODIUM 142 mmol/L (136-145)
[2018-09-06 08:48] LABS: ANION GAP 4 MMOL/L (8-16); CALCIUM 8.8 mg/dL (8.5-10.1); CHLORIDE 104 mmol/L (98-107); CO2 34 mmol/L (21-32); POTASSIUM 3.9 mmol/L (3.5-5.1)
[2018-09-06] MEDS: POTASSIUM CHLORIDE TABS 20 MEQ TABLET.ER (FP) PO SCH (09:57)
[2018-09-06] MEDS: FENOFIBRIC ACID 135 MG CAP PO SCH (09:57)
[2018-09-06] MEDS: FOLIC ACID 1 MG TABLET (FP) PO SCH (09:57)
[2018-09-06] MEDS: amLODIPine BESYLATE 5 MG TABLET (FP) PO SCH (09:57)
[2018-09-06] MEDS: CARVEDILOL 12.5 MG TABLET (FP) PO SCH ×2 (09:57→22:14)
[2018-09-06] MEDS: APIXABAN 5 MG TABLET PO SCH ×2 (09:57→22:14)
[2018-09-06] MEDS: ASPIRIN COATED 81 MG TABLET.EC PO SCH (09:57)
[2018-09-06] MEDS: BUDESONIDE/FORMETEROL FUMARATE 80/4.5 mcg INHALER IH SCH ×2 (09:58→22:17)
--- NOTE | 2018-09-06 11:05 | PN ---
Progress Note (short form) - Note Progress Note: s: no cp palps dizzy; sob persists Current Medications Generic Name Dose Route Start Last Admin Trade Name Freq PRN Reason Stop Dose Admin Acetaminophen 650 mg 09/02/18 21:50 09/05/18 21:19 Tylenol - PO 650 mg Q6H PRN Administration FEVER Amlodipine Besylate 5 mg 09/03/18 10:00 09/06/18 09:57 Norvasc - PO 5 mg DAILY [facility] Administration Apixaban 5 mg 09/02/18 22:00 09/06/18 09:57 Eliquis - PO 5 mg BID [facility] Administration Aspirin 81 mg 09/03/18 10:00 09/06/18 09:57 Ecotrin - PO 81 mg DAILY [facility] Administration Budesonide/Formoterol Fumarate 2 puff 09/03/18 10:00 09/06/18 09:58 Symbicort 80/4.5mcg - IH 2 puff BID [facility] Administration Carvedilol 12.5 mg 09/03/18 10:00 09/06/18 09:57 Coreg - PO 12.5 mg BID [facility] Administration Fenofibric Acid 135 mg 09/03/18 10:00 09/06/18 09:57 Trilipix - PO 135 mg DAILY [facility] Administration Folic Acid 1 mg 09/03/18 10:00 09/06/18 09:57 Folic Acid - PO 1 mg DAILY [facility] Administration Furosemide 80 mg 09/05/18 11:23 09/06/18 06:16 Lasix Injection - IVPUSH 80 mg BID@0600,1400 [facility] Administration Potassium Chloride 20 meq 09/03/18 10:00 09/06/18 09:57 K-Dur - PO 20 meq DAILY [facility] Administration Vital Signs Period Temp Pulse Resp BP Sys/Clements Pulse Ox Last 24 Hr 97.2 F-98.3 F 82-90 18-20 101-132/49-87 95-95 Constitutional: Yes: Well Nourished, No Distress Eyes: No: Sclera Icterus HENT: No: Nasal Congestion Neck: No: Decreased ROM Respiratory: Yes: CTA Bilaterally, Diminished (bases). No: Accessory Muscle Use , Rales, Wheezes Gastrointestinal: Yes: Normal Bowel Sounds, +Distention. No: Hepatomegaly, Palpable Mass, Tenderness Cardiovascular: Yes: Regular Rate and Rhythm JVD: No Carotid Bruit: No PMI: Non-Displaced Heart Sounds: Yes: S1, S2. No: Gallop Murmur: No: Systolic Murmur, Diastolic Murmur Extremities: No: Cool, Cyanosis Edema: 1+ pedal edema bl Integumentary: No: Jaundice Neurological: Yes: Alert, Oriented (x3) Psychiatric: No: Agitated CBC, BMP 09/03/18 06:00 09/06/18 05:30 ECG:afib, rate 95, inferolat twi, no sig change prior echo in 10/15 Dr. Meyer: normal LV, no pericardial effusion (no other signif abnormality) echo 06/2018 nl LV function, mildly reduced RV function, borderline LA enlargement, mild MR, mild TR, RVSP nl, small pericardial effusion <1 cm, no echo indication of tamponade tele: afib, rate controlled cxr: mild chf a/p: SOB, acute diastolic chf, hx of pericardial effusion, mesothelioma, asthma: -recent echos unremarkable -here with vol overload. no signs acs. -cont lasix iv 40 bid. -09/05: still volume up, cr stable, will increase to lasix 80 iv bid. -09/06: cont iv lasix 80 bid, monitor daily wts, chem7. afib - continue home eliquis - continue carvedilol, rate ok HTN: -bp controlled -cont home meds CKD: -stable, monitor with lasix abd pain: -ct pending -GI consulted
--- NOTE | 2018-09-06 12:57 | CON.GI ---
Consult Consult Specialty:: GI Referred by:: Dr Ramirez Reason for Consultation:: "abdominal pain" - History of Present Illness Chief Complaint: 68 y.o. M with mesothelioma, on chemo, admitted with dyspnea. History of Present Illness: Pt reports a burning type pain that begins on L. ribs where he had chest tubes in past and extends in a dermatome-like fashion to anterior abdomen. This has been present since he had a lung biopsy and chest tube placement. He says the discomfort is relieved if he puts something hot or cold on his rib. He has seen a pain management physician who has injected the area twice with relief lasting up to 2 months each time. He has not taken gabapentin to his knowledge. 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 History of Recent Travel: No Home Medications - Allergies Allergies/Adverse Reactions: Allergies Allergy/AdvReac Type Severity Reaction Status Date / Time sulfur [From Sulfur-8] Allergy Mild Rash Verified 09/02/18 15:00 - Home Medications Home Medications: Ambulatory Orders Amlodipine Besylate [Norvasc -] 5 mg PO DAILY 08/11/17 Aspirin [Ecotrin] 81 mg PO DAILY 08/11/17 Carvedilol 12.5 mg PO DAILY 08/11/17 Fenofibrate [Lipofen] 160 mg PO DAILY 08/11/17 Folic Acid 1 mg PO DAILY 08/11/17 Furosemide [Lasix] 40 mg PO BID 08/11/17 Omeprazole Magnesium [Prilosec Otc] 20 mg PO BID 08/11/17 Budesonide/Formeterol Fumarate [SYMBICORT 80/4.5mcg -] 2 inh IH DAILY 07/12/18 Ipratropium/Albuterol Sulfate [Combivent Respimat 20-100 Mcg] 4 gm IH BID Lactobacillus Acidophilus [Bacid -] 1 each PO DAILY 07/13/18 Albuterol 2.5/Ipratropium 0.5 [Duoneb -] 1 neb IH QID PRN #3 vial.neb. 07/20/18 Apixaban [Eliquis] 5 mg PO BID #60 tablet 07/20/18 Nebulizer [Compact Ultrasonic Nebulizer] 1 each MC DAILY PRN #1 each 07/20/18 Lactobacillus Acidophilus [Probiotic] 1 each PO DAILY 09/02/18 Potassium Chloride 20 meq PO DAILY 09/02/18 Family Disease History - Family Disease History Family Disease History: Other: Father (Unknown medical conditions), Mother ( Alive, CVA), Brother (1, HTN), Sister (1, HTN), Son (2, healthy), Daughter (1, healthy) Physical Exam-GI Vital Signs: Vital Signs Temperature 98.0 F 09/06/18 05:35 Pulse Rate 82 09/06/18 05:35 Respiratory Rate 20 09/06/18 09:00 Blood Pressure 112/62 09/06/18 05:35 O2 Sat by Pulse Oximetry (%) 95 09/06/18 09:00 Labs: CBC, BMP 09/03/18 06:00 09/06/18 05:30 INR, PTT INR 1.74 (0.83-1.09) H 09/02/18 15:38 Imaging - Results Cat Scan: Image Reviewed (grossly negative; report pending) Assessment/Plan "Abdominal pain." Pt is very clear that he does not have abdominal pain. 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 Note he has had an extensive GI workup, both here and at [facility]. See Dr Gomez's consultation from June 2018.
--- NOTE | 2018-09-06 19:00 | PN ---
Progress Note, Physician - Current Medication List Current Medications: Active Medications Acetaminophen (Tylenol -) 650 mg PO Q6H PRN PRN Reason: FEVER Last Admin: 09/05/18 21:19 Dose: 650 mg Amlodipine Besylate (Norvasc -) 5 mg PO DAILY [facility] Last Admin: 09/06/18 09:57 Dose: 5 mg Apixaban (Eliquis -) 5 mg PO BID [facility] Last Admin: 09/06/18 09:57 Dose: 5 mg Aspirin (Ecotrin -) 81 mg PO DAILY [facility] Last Admin: 09/06/18 09:57 Dose: 81 mg Budesonide/Formoterol Fumarate (Symbicort 80/4.5mcg -) 2 puff IH BID [facility] Last Admin: 09/06/18 09:58 Dose: 2 puff Carvedilol (Coreg -) 12.5 mg PO BID [facility] Last Admin: 09/06/18 09:57 Dose: 12.5 mg Fenofibric Acid (Trilipix -) 135 mg PO DAILY [facility] Last Admin: 09/06/18 09:57 Dose: 135 mg Folic Acid (Folic Acid -) 1 mg PO DAILY [facility] Last Admin: 09/06/18 09:57 Dose: 1 mg Furosemide (Lasix Injection -) 80 mg IVPUSH BID@0600,1400 [facility] Last Admin: 09/06/18 13:49 Dose: 80 mg Potassium Chloride (K-Dur -) 20 meq PO DAILY [facility] Last Admin: 09/06/18 09:57 Dose: 20 meq - Objective Vital Signs: Vital Signs Temperature 97.7 F 09/06/18 17:00 Pulse Rate 100 H 09/06/18 17:00 Respiratory Rate 20 09/06/18 17:00 Blood Pressure 115/73 09/06/18 17:00 O2 Sat by Pulse Oximetry (%) 95 09/06/18 09:00 Constitutional: Yes: No Distress HENT: Yes: Atraumatic Neck: Yes: Supple Cardiovascular: Yes: Regular Rate and Rhythm Respiratory: Yes: Rhonchi Gastrointestinal: Yes: Normal Bowel Sounds Extremities: Yes: WNL Edema: Yes Edema: LLE: 1+, RLE: 1+ Peripheral Pulses WNL: Yes Neurological: Yes: Alert, Oriented Labs: CBC, BMP 09/03/18 06:00 09/06/18 05:30 INR, PTT INR 1.74 (0.83-1.09) H 09/02/18 15:38 Problem List - Problems (1) Asthma Assessment/Plan: prn nebs Code(s): J45.909 - UNSPECIFIED ASTHMA, UNCOMPLICATED (2) COPD exacerbation Assessment/Plan: on inhaler can have prn nebs Code(s): J44.1 - CHRONIC OBSTRUCTIVE PULMONARY DISEASE W (ACUTE) EXACERBATION (3) HTN (hypertension) Assessment/Plan: continue homemeds Code(s): I10 - ESSENTIAL (PRIMARY) HYPERTENSION (4) Mesothelioma (pleural) Assessment/Plan: s/p chemo and RT Code(s): C45.0 - MESOTHELIOMA OF PLEURA (5) Shortness of breath Code(s): R06.02 - SHORTNESS OF BREATH (6) CHF exacerbation Assessment/Plan: iv lasix dose is increased Code(s): I50.9 - HEART FAILURE, UNSPECIFIED Qualifiers: Heart failure type: unspecified Qualified Code(s): I50.9 - Heart failure, unspecified
--- NOTE | 2018-09-06 19:34 | CONSULT ---
Consult Consult Specialty:: Heme/onc Referred by:: Dr. Ramirez Reason for Consultation:: mesothelioma - History of Present Illness Chief Complaint: sob History of Present Illness: 68M with COPD, CHF, CKD, AF on Eliquis, mesothelioma dx 2 years ago, s/p carbo/ alimta with eventual POD, now on nivolumab since 12/2017 (last treatment about 1 week ago), recent hx of pericardial effusion presented with SOB x 1 week and LE edema, found to have fluid overload. Being diuresed. No improvement so far. Also has cough without hemoptysis. Denies fevers. 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 History of Recent Travel: No Home Medications - Allergies Allergies/Adverse Reactions: Allergies Allergy/AdvReac Type Severity Reaction Status Date / Time sulfur [From Sulfur-8] Allergy Mild Rash Verified 09/02/18 15:00 - Home Medications Home Medications: Ambulatory Orders Amlodipine Besylate [Norvasc -] 5 mg PO DAILY 08/11/17 Aspirin [Ecotrin] 81 mg PO DAILY 08/11/17 Carvedilol 12.5 mg PO DAILY 08/11/17 Fenofibrate [Lipofen] 160 mg PO DAILY 08/11/17 Folic Acid 1 mg PO DAILY 08/11/17 Furosemide [Lasix] 40 mg PO BID 08/11/17 Omeprazole Magnesium [Prilosec Otc] 20 mg PO BID 08/11/17 Budesonide/Formeterol Fumarate [SYMBICORT 80/4.5mcg -] 2 inh IH DAILY 07/12/18 Ipratropium/Albuterol Sulfate [Combivent Respimat 20-100 Mcg] 4 gm IH BID Lactobacillus Acidophilus [Bacid -] 1 each PO DAILY 07/13/18 Albuterol 2.5/Ipratropium 0.5 [Duoneb -] 1 neb IH QID PRN #3 vial.neb. 07/20/18 Apixaban [Eliquis] 5 mg PO BID #60 tablet 07/20/18 Nebulizer [Compact Ultrasonic Nebulizer] 1 each MC DAILY PRN #1 each 07/20/18 Lactobacillus Acidophilus [Probiotic] 1 each PO DAILY 09/02/18 Potassium Chloride 20 meq PO DAILY 09/02/18 Family Disease History - Family Disease History Family Disease History: Other: Father (Unknown medical conditions), Mother ( Alive, CVA), Brother (1, HTN), Sister (1, HTN), Son (2, healthy), Daughter (1, healthy) Review of Systems - Review of Systems Constitutional: reports: No Symptoms Cardiovascular: reports: No Symptoms, Shortness of Breath Respiratory: reports: Cough, SOB, SOB on Exertion Gastrointestinal: reports: No Symptoms Hematology/Lymphatic: reports: No Symptoms Physical Exam Vital Signs: Vital Signs Temperature 97.7 F 09/06/18 17:00 Pulse Rate 100 H 09/06/18 17:00 Respiratory Rate 20 09/06/18 17:00 Blood Pressure 115/73 09/06/18 17:00 O2 Sat by Pulse Oximetry (%) 95 09/06/18 09:00 Constitutional: Yes: No Distress Eyes: Yes: Conjunctiva Clear Cardiovascular: Yes: Regular Rate and Rhythm Respiratory: Yes: Regular (scattered crackles) Gastrointestinal: Yes: WNL, Normal Bowel Sounds, Soft Edema: LLE: 1+, RLE: 1+ Labs: CBC, BMP 09/03/18 06:00 09/06/18 05:30 Assessment/Plan 68M with COPD, CHF, CKD, AF on Eliquis, mesothelioma dx 2 years ago, s/p carbo/ alimta with eventual POD, now on nivolumab since 12/2017 (c11 on 07/06/18), recent hx of pericardial effusion presented with SOB x 1 week and LE edema, found to have fluid overload. Evaluated by cardiology. Being diuresed. Labs stable. Will continue to follow.
[2018-09-06] MEDS: ACETAMINOPHEN 325 MG TABLET (FP) PO PRN (22:14)
[2018-09-06] MEDS: guaiFENesin/D-METHORPHAN HB 10 ML UNIT-DOSE CUPS PO PRN (22:17)
[2018-09-07] MEDS: FUROSEMIDE 40 MG/4 ML INJECTABLE VIAL IVPUSH SCH ×2 (06:48→14:34)
[2018-09-07 07:46] LABS: ANION GAP 5 MMOL/L (8-16); BLOOD UREA NITROGEN 24 mg/dL (7-18); CALCIUM 8.9 mg/dL (8.5-10.1); CHLORIDE 100 mmol/L (98-107); CO2 36 mmol/L (21-32); CREATININE 1.4 mg/dL (0.55-1.3); GLUCOSE,RANDOM 91 mg/dL (74-106); POTASSIUM 4.1 mmol/L (3.5-5.1); SODIUM 142 mmol/L (136-145)
--- NOTE | 2018-09-07 09:56 | PN ---
Progress Note, Physician Chief Complaint: sob History of Present Illness: remains sob--no improvement no cp, palpit, syncope no cigs - Current Medication List Current Medications: Active Medications Acetaminophen (Tylenol -) 650 mg PO Q6H PRN PRN Reason: FEVER Last Admin: 09/06/18 22:14 Dose: 650 mg Amlodipine Besylate (Norvasc -) 5 mg PO DAILY [facility] Last Admin: 09/06/18 09:57 Dose: 5 mg Apixaban (Eliquis -) 5 mg PO BID [facility] Last Admin: 09/06/18 22:14 Dose: 5 mg Aspirin (Ecotrin -) 81 mg PO DAILY [facility] Last Admin: 09/06/18 09:57 Dose: 81 mg Budesonide/Formoterol Fumarate (Symbicort 80/4.5mcg -) 2 puff IH BID [facility] Last Admin: 09/06/18 22:17 Dose: 2 puff Carvedilol (Coreg -) 12.5 mg PO BID [facility] Last Admin: 09/06/18 22:14 Dose: 12.5 mg Fenofibric Acid (Trilipix -) 135 mg PO DAILY [facility] Last Admin: 09/06/18 09:57 Dose: 135 mg Folic Acid (Folic Acid -) 1 mg PO DAILY [facility] Last Admin: 09/06/18 09:57 Dose: 1 mg Furosemide (Lasix Injection -) 80 mg IVPUSH BID@0600,1400 [facility] Last Admin: 09/07/18 06:48 Dose: 80 mg Guaifenesin (Robitussin Dm -) 10 ml PO Q6H PRN PRN Reason: COUGH Last Admin: 09/06/18 22:17 Dose: 10 ml Potassium Chloride (K-Dur -) 20 meq PO DAILY [facility] Last Admin: 09/06/18 09:57 Dose: 20 meq - Objective Vital Signs: Vital Signs Temperature 97.3 F L 09/07/18 05:42 Pulse Rate 87 09/07/18 05:42 Respiratory Rate 20 09/07/18 05:42 Blood Pressure 109/75 09/07/18 05:42 O2 Sat by Pulse Oximetry (%) 100 09/06/18 21:00 Constitutional: Yes: No Distress, Calm Eyes: No: Sclera Icterus HENT: No: Nasal Congestion Cardiovascular: Yes: Regular Rate and Rhythm, JVD (?), S1, S2, Other (PMI non diplaced). No: Gallop, Murmur Respiratory: Yes: CTA Bilaterally, Diminished (L base). No: Accessory Muscle Use, Rales, Wheezes Gastrointestinal: Yes: Normal Bowel Sounds, Soft. No: Tenderness Musculoskeletal: Yes: Other (No kyphosis) Extremities: No: Cool, Cyanosis Edema: No Integumentary: No: Jaundice Neurological: Yes: Alert, Oriented (x3) Psychiatric: No: Agitated Labs: CBC, BMP 09/03/18 06:00 09/07/18 05:50 INR, PTT INR 1.74 (0.83-1.09) H 09/02/18 15:38 Assessment/Plan ECG:afib, rate 95, inferolat twi, no sig change prior echo in 10/15 Dr. Meyer: normal LV, no pericardial effusion (no other signif abnormality) echo 06/2018 nl LV function, mildly reduced RV function, borderline LA enlargement, mild MR, mild TR, RVSP nl, small pericardial effusion <1 cm, no echo indication of tamponade cxr: mild chf tele: afib, rate controlled. NSVT x 5b a/p: SOB, acute diastolic chf, hx of pericardial effusion, mesothelioma, asthma: -recent echos unremarkable -here with vol overload. no signs acs. -+JVD in office with wt trending up from 211 on 07/29/18 to 214 on 08/14, to 224 on 09/02. -cont lasix iv 40 bid. -09/05: still volume up, cr stable, will increase to lasix 80 iv bid. -09/06: cont iv lasix 80 bid, monitor daily wts, chem7. -09/07: wt not decreasing (223-224). renal fxn stable. has received 4 doses of lasix 80 IV bid now, notes no vigorous diuretic response yest, today improved. continue lasix as doing. add metolazone 2.5 mg test dose today. pt expresses concern about effects of diuretics on renal fxn. explained to him that typically these meds do not impact renal fxn when you are removing excessive volume, and that renal fxn may improve with decongestion of renal veins. also explained to him that diuresis is the only effective tx to relieve sob sx's from his condition (HFpEF) and we have no choice but to try increasing his regimen as the current regimen is proving ineffective. he verbalized understanding and agreed to plan. -given pt's behavior (with repeated admits for HFpEF), will consider outpatient evaluation for pericardial constriction (less likely restrictive CMP)--possible CMR or echo at tertiary echo lab --to f/u with dr robles as outpatient afib - continue home eliquis - continue carvedilol, rate ok HTN: -bp controlled -cont home meds CKD: -baseline creat 1.1-1.3 -renal fxn initially worse here, improved, currently 1.4
[2018-09-07] MEDS: ASPIRIN COATED 81 MG TABLET.EC PO SCH (10:17)
[2018-09-07] MEDS: POTASSIUM CHLORIDE TABS 20 MEQ TABLET.ER (FP) PO SCH (10:17)
[2018-09-07] MEDS: FENOFIBRIC ACID 135 MG CAP PO SCH (10:17)
[2018-09-07] MEDS: CARVEDILOL 12.5 MG TABLET (FP) PO SCH ×2 (10:17→21:34)
[2018-09-07] MEDS: amLODIPine BESYLATE 5 MG TABLET (FP) PO SCH (10:17)
[2018-09-07] MEDS: APIXABAN 5 MG TABLET PO SCH ×2 (10:17→21:34)
[2018-09-07] MEDS: FOLIC ACID 1 MG TABLET (FP) PO SCH (10:17)
[2018-09-07] MEDS: BUDESONIDE/FORMETEROL FUMARATE 80/4.5 mcg INHALER IH SCH ×2 (10:19→21:34)
[2018-09-07] MEDS ORDERED: POTASSIUM CHLORIDE TABS 20 MEQ TABLET.ER (FP) PO ONE (12:23)
[2018-09-07] MEDS ORDERED: METOLAZONE 2.5 MG TABLET (FP) PO ONE (13:00)
--- NOTE | 2018-09-07 17:44 | PN ---
Progress Note (short form) - Note Progress Note: Patient seen and examined Complains of SOB and dyspnea Last Vital Signs Temp Pulse Resp BP Pulse Ox 98.1 F 99 H 20 118/56 L 100 09/07/18 14:00 09/07/18 14:00 09/07/18 10:00 09/07/18 14:00 09/07/18 09:00 HEENT: WILLIAMS, EOM Intact Oropharynx: No thrush, No mucositis Neck: Supple Cor: atrial fib, No murmurs, No gallops Lungs:decreased breath sounds bilaterally Abd: Soft, Normal bowel sounds, No organomegaly, distended Ext:LE edema Skin: No rashes, Integument intact CBC, BMP 09/03/18 06:00 09/07/18 05:50 Current Medications Generic Name Dose Route Start Last Admin Trade Name Freq PRN Reason Stop Dose Admin Acetaminophen 650 mg 09/02/18 21:50 09/06/18 22:14 Tylenol - PO 650 mg Q6H PRN Administration FEVER Amlodipine Besylate 5 mg 09/03/18 10:00 09/07/18 10:17 Norvasc - PO 5 mg DAILY JANINE Administration Apixaban 5 mg 09/02/18 22:00 09/07/18 10:17 Eliquis - PO 5 mg BID JANINE Administration Aspirin 81 mg 09/03/18 10:00 09/07/18 10:17 Ecotrin - PO 81 mg DAILY JANINE Administration Budesonide/Formoterol Fumarate 2 puff 09/03/18 10:00 09/07/18 10:19 Symbicort 80/4.5mcg - IH 2 puff BID JANINE Administration Carvedilol 12.5 mg 09/03/18 10:00 09/07/18 10:17 Coreg - PO 12.5 mg BID JANINE Administration Fenofibric Acid 135 mg 09/03/18 10:00 09/07/18 10:17 Trilipix - PO 135 mg DAILY JANINE Administration Folic Acid 1 mg 09/03/18 10:00 09/07/18 10:17 Folic Acid - PO 1 mg DAILY JANINE Administration Furosemide 80 mg 09/05/18 11:23 09/07/18 14:34 Lasix Injection - IVPUSH 80 mg BID@0600,1400 JANINE Administration Guaifenesin 10 ml 09/06/18 21:57 09/06/18 22:17 Robitussin Dm - PO 10 ml Q6H PRN Administration COUGH Potassium Chloride 20 meq 09/03/18 10:00 09/07/18 10:17 K-Dur - PO 20 meq DAILY JANINE Administration Imp-ression: Mesothelioma S/P chemotherapy, currently on immunotherapy Fluid overload CKD/Pre-renal azotemia anemia Plan trial of zaroxyln
--- NOTE | 2018-09-07 19:49 | PN ---
Progress Note, Physician - Current Medication List Current Medications: Active Medications Acetaminophen (Tylenol -) 650 mg PO Q6H PRN PRN Reason: FEVER Last Admin: 09/06/18 22:14 Dose: 650 mg Amlodipine Besylate (Norvasc -) 5 mg PO DAILY [facility] Last Admin: 09/07/18 10:17 Dose: 5 mg Apixaban (Eliquis -) 5 mg PO BID [facility] Last Admin: 09/07/18 10:17 Dose: 5 mg Aspirin (Ecotrin -) 81 mg PO DAILY [facility] Last Admin: 09/07/18 10:17 Dose: 81 mg Budesonide/Formoterol Fumarate (Symbicort 80/4.5mcg -) 2 puff IH BID [facility] Last Admin: 09/07/18 10:19 Dose: 2 puff Carvedilol (Coreg -) 12.5 mg PO BID [facility] Last Admin: 09/07/18 10:17 Dose: 12.5 mg Fenofibric Acid (Trilipix -) 135 mg PO DAILY [facility] Last Admin: 09/07/18 10:17 Dose: 135 mg Folic Acid (Folic Acid -) 1 mg PO DAILY [facility] Last Admin: 09/07/18 10:17 Dose: 1 mg Furosemide (Lasix Injection -) 80 mg IVPUSH BID@0600,1400 [facility] Last Admin: 09/07/18 14:34 Dose: 80 mg Guaifenesin (Robitussin Dm -) 10 ml PO Q6H PRN PRN Reason: COUGH Last Admin: 09/06/18 22:17 Dose: 10 ml Potassium Chloride (K-Dur -) 20 meq PO DAILY [facility] Last Admin: 09/07/18 10:17 Dose: 20 meq - Objective Vital Signs: Vital Signs Temperature 98.1 F 09/07/18 14:00 Pulse Rate 99 H 09/07/18 14:00 Respiratory Rate 20 09/07/18 10:00 Blood Pressure 118/56 L 09/07/18 14:00 O2 Sat by Pulse Oximetry (%) 100 09/07/18 09:00 Constitutional: Yes: No Distress HENT: Yes: Atraumatic Neck: Yes: Supple Cardiovascular: Yes: Regular Rate and Rhythm Gastrointestinal: Yes: Normal Bowel Sounds Extremities: Yes: WNL Edema: Yes Edema: LLE: 1+, RLE: 1+ Neurological: Yes: Alert, Oriented Labs: CBC, BMP 03/07/19 06:00 09/07/18 05:50 INR, PTT INR 1.74 (0.83-1.09) H 09/02/18 15:38 Problem List - Problems (1) Asthma Assessment/Plan: prn nebs Code(s): J45.909 - UNSPECIFIED ASTHMA, UNCOMPLICATED (2) COPD exacerbation Assessment/Plan: on inhaler can have prn nebs Code(s): J44.1 - CHRONIC OBSTRUCTIVE PULMONARY DISEASE W (ACUTE) EXACERBATION (3) HTN (hypertension) Assessment/Plan: continue homemeds Code(s): I10 - ESSENTIAL (PRIMARY) HYPERTENSION (4) Mesothelioma (pleural) Assessment/Plan: s/p chemo and RT Code(s): C45.0 - MESOTHELIOMA OF PLEURA (5) Shortness of breath Code(s): R06.02 - SHORTNESS OF BREATH (6) CHF exacerbation Assessment/Plan: iv lasix dose is increased Code(s): I50.9 - HEART FAILURE, UNSPECIFIED Qualifiers: Heart failure type: unspecified Qualified Code(s): I50.9 - Heart failure, unspecified
[2018-09-08] MEDS: guaiFENesin/D-METHORPHAN HB 10 ML UNIT-DOSE CUPS PO PRN (01:03)
[2018-09-08] MEDS: ACETAMINOPHEN 325 MG TABLET (FP) PO PRN (04:20)
[2018-09-08] MEDS: FUROSEMIDE 40 MG/4 ML INJECTABLE VIAL IVPUSH SCH ×2 (06:25→13:54)
[2018-09-08 08:44] LABS: ANION GAP 7 MMOL/L (8-16); BLOOD UREA NITROGEN 23 mg/dL (7-18); CALCIUM 8.9 mg/dL (8.5-10.1); CHLORIDE 99 mmol/L (98-107); CO2 35 mmol/L (21-32); CREATININE 1.5 mg/dL (0.55-1.3); GLUCOSE,RANDOM 92 mg/dL (74-106); POTASSIUM 3.7 mmol/L (3.5-5.1); SODIUM 141 mmol/L (136-145)
--- NOTE | 2018-09-08 09:57 | PN ---
Progress Note (short form) - Note Progress Note: s: feels tired today. sob and edema stable, no chest pain, palps, dizziness. Current Medications Acetaminophen (Tylenol -) 650 mg PO Q6H PRN PRN Reason: FEVER Last Admin: 09/08/18 04:20 Dose: 650 mg Amlodipine Besylate (Norvasc -) 5 mg PO DAILY [facility] Last Admin: 09/07/18 10:17 Dose: 5 mg Apixaban (Eliquis -) 5 mg PO BID [facility] Last Admin: 09/07/18 21:34 Dose: 5 mg Aspirin (Ecotrin -) 81 mg PO DAILY [facility] Last Admin: 09/07/18 10:17 Dose: 81 mg Budesonide/Formoterol Fumarate (Symbicort 80/4.5mcg -) 2 puff IH BID [facility] Last Admin: 09/07/18 21:34 Dose: 2 puff Carvedilol (Coreg -) 12.5 mg PO BID [facility] Last Admin: 09/07/18 21:34 Dose: 12.5 mg Fenofibric Acid (Trilipix -) 135 mg PO DAILY [facility] Last Admin: 09/07/18 10:17 Dose: 135 mg Folic Acid (Folic Acid -) 1 mg PO DAILY [facility] Last Admin: 09/07/18 10:17 Dose: 1 mg Furosemide (Lasix Injection -) 80 mg IVPUSH BID@0600,1400 [facility] Last Admin: 09/08/18 06:25 Dose: 80 mg Guaifenesin (Robitussin Dm -) 10 ml PO Q6H PRN PRN Reason: COUGH Last Admin: 09/08/18 01:03 Dose: 10 ml Potassium Chloride (K-Dur -) 20 meq PO DAILY [facility] Last Admin: 09/07/18 10:17 Dose: 20 meq Vital Signs Period Temp Pulse Resp BP Sys/Clements Pulse Ox Last 24 Hr 97.1 F-98.6 F 90-99 20-22 112-132/56-93 100 Constitutional: Yes: No Distress, Calm Eyes: No: Sclera Icterus HENT: No: Nasal Congestion Cardiovascular: Yes: Regular Rate and Rhythm, JVD (?), S1, S2, Other (PMI non diplaced). No: Gallop, Murmur Respiratory: Yes: CTA Bilaterally, Diminished (L base). No: Accessory Muscle Use, Rales, Wheezes Gastrointestinal: Yes: Normal Bowel Sounds, Soft. No: Tenderness Musculoskeletal: Yes: Other (No kyphosis) Extremities: No: Cool, Cyanosis Edema: yes 1+ cristian lower ext Integumentary: No: Jaundice Neurological: Yes: Alert, Oriented (x3) Psychiatric: No: Agitated Assessment/Plan ECG:afib, rate 95, inferolat twi, no sig change prior echo in 10/15 Dr. Meyer: normal LV, no pericardial effusion (no other signif abnormality) echo 06/2018 nl LV function, mildly reduced RV function, borderline LA enlargement, mild MR, mild TR, RVSP nl, small pericardial effusion <1 cm, no echo indication of tamponade cxr: mild chf tele: afib, rate controlled. NSVT x 5b a/p: SOB, acute diastolic chf, hx of pericardial effusion, mesothelioma, asthma: -recent echos unremarkable -here with vol overload. no signs acs. -+JVD in office with wt trending up from 211 on 07/29/18 to 214 on 08/14, to 224 on 09/02. -cont lasix iv 40 bid. -09/05: still volume up, cr stable, will increase to lasix 80 iv bid. -09/06: cont iv lasix 80 bid, monitor daily wts, chem7. -09/07: wt not decreasing (223-224). renal fxn stable. has received 4 doses of lasix 80 IV bid now, notes no vigorous diuretic response yest, today improved. continue lasix as doing. add metolazone 2.5 mg test dose today. pt expresses concern about effects of diuretics on renal fxn. explained to him that typically these meds do not impact renal fxn when you are removing excessive volume, and that renal fxn may improve with decongestion of renal veins. also explained to him that diuresis is the only effective tx to relieve sob sx's from his condition (HFpEF) and we have no choice but to try increasing his regimen as the current regimen is proving ineffective. he verbalized understanding and agreed to plan. -09/08: wt 223->217, Cr stable, remains volume overloaded. will give additional dose metolazone 2.5 mg today prior to PM lasix dose, continue lasix 80 mg IV BID -given pt's behavior (with repeated admits for HFpEF), will consider outpatient evaluation for pericardial constriction (less likely restrictive CMP)--possible CMR or echo at tertiary echo lab afib - continue home eliquis - continue carvedilol, rate ok HTN: -bp controlled -cont home meds CKD: -baseline creat 1.1-1.3 -renal fxn initially worse here, improved, currently 1.4
[2018-09-08] MEDS: POTASSIUM CHLORIDE TABS 20 MEQ TABLET.ER (FP) PO SCH (10:16)
[2018-09-08] MEDS: ASPIRIN COATED 81 MG TABLET.EC PO SCH (10:16)
[2018-09-08] MEDS: amLODIPine BESYLATE 5 MG TABLET (FP) PO SCH (10:16)
[2018-09-08] MEDS: FOLIC ACID 1 MG TABLET (FP) PO SCH (10:16)
[2018-09-08] MEDS: CARVEDILOL 12.5 MG TABLET (FP) PO SCH ×2 (10:17→21:20)
[2018-09-08] MEDS: FENOFIBRIC ACID 135 MG CAP PO SCH (10:17)
[2018-09-08] MEDS: BUDESONIDE/FORMETEROL FUMARATE 80/4.5 mcg INHALER IH SCH ×2 (10:17→21:19)
[2018-09-08] MEDS: APIXABAN 5 MG TABLET PO SCH ×2 (10:17→21:20)
[2018-09-08] MEDS ORDERED: METOLAZONE 2.5 MG TABLET (FP) PO ONE (11:16)
[2018-09-08] MEDS ORDERED: PT OWN MED DRAWER 7, Y5N ONE (12:08)
--- NOTE | 2018-09-08 17:57 | PN ---
Progress Note (short form) - Note Progress Note: Patient seen and examined Remains dyspneic and tachypneic On O-2 Last Vital Signs Temp Pulse Resp BP Pulse Ox 98.3 F 84 22 H 117/73 98 09/08/18 14:00 09/08/18 14:00 09/08/18 09:00 09/08/18 14:00 09/08/18 09:00 HEENT: WILLIAMS, EOM Intact Oropharynx: No thrush, No mucositis Cor: RSR, No murmurs, No gallops Lungs: diminished breath sounds bilaterally Abd: Soft, Normal bowel sounds, No organomegaly, distended Ext:LE edema Skin: No rashes, Integument intact CBC, BMP 09/03/18 06:00 09/08/18 06:48 Current Medications Generic Name Dose Route Start Last Admin Trade Name Freq PRN Reason Stop Dose Admin Acetaminophen 650 mg 09/02/18 21:50 09/08/18 04:20 Tylenol - PO 650 mg Q6H PRN Administration FEVER Amlodipine Besylate 5 mg 09/03/18 10:00 09/08/18 10:16 Norvasc - PO 5 mg DAILY JANINE Administration Apixaban 5 mg 09/02/18 22:00 09/08/18 10:17 Eliquis - PO 5 mg BID JANINE Administration Aspirin 81 mg 09/03/18 10:00 09/08/18 10:16 Ecotrin - PO 81 mg DAILY JANINE Administration Budesonide/Formoterol Fumarate 2 puff 09/03/18 10:00 09/08/18 10:17 Symbicort 80/4.5mcg - IH 2 puff BID JANINE Administration Carvedilol 12.5 mg 09/03/18 10:00 09/08/18 10:17 Coreg - PO 12.5 mg BID JANINE Administration Fenofibric Acid 135 mg 09/03/18 10:00 09/08/18 10:17 Trilipix - PO 135 mg DAILY JANINE Administration Folic Acid 1 mg 09/03/18 10:00 09/08/18 10:16 Folic Acid - PO 1 mg DAILY JANINE Administration Furosemide 80 mg 09/05/18 11:23 09/08/18 13:54 Lasix Injection - IVPUSH 80 mg BID@0600,1400 JANINE Administration Guaifenesin 10 ml 09/06/18 21:57 09/08/18 01:03 Robitussin Dm - PO 10 ml Q6H PRN Administration COUGH Potassium Chloride 20 meq 09/03/18 10:00 09/08/18 10:16 K-Dur - PO 20 meq DAILY JANINE Administration Impression: Mesothelioma Fluid overload Weight loss of 5 lbs Anemia Continue current treatments and diuresis
--- NOTE | 2018-09-08 19:36 | PN ---
Progress Note, Physician Chief Complaint: doing well - Current Medication List Current Medications: Active Medications Acetaminophen (Tylenol -) 650 mg PO Q6H PRN PRN Reason: FEVER Last Admin: 09/08/18 04:20 Dose: 650 mg Amlodipine Besylate (Norvasc -) 5 mg PO DAILY [facility] Last Admin: 09/08/18 10:16 Dose: 5 mg Apixaban (Eliquis -) 5 mg PO BID [facility] Last Admin: 09/08/18 10:17 Dose: 5 mg Aspirin (Ecotrin -) 81 mg PO DAILY [facility] Last Admin: 09/08/18 10:16 Dose: 81 mg Budesonide/Formoterol Fumarate (Symbicort 80/4.5mcg -) 2 puff IH BID [facility] Last Admin: 09/08/18 10:17 Dose: 2 puff Carvedilol (Coreg -) 12.5 mg PO BID [facility] Last Admin: 09/08/18 10:17 Dose: 12.5 mg Fenofibric Acid (Trilipix -) 135 mg PO DAILY [facility] Last Admin: 09/08/18 10:17 Dose: 135 mg Folic Acid (Folic Acid -) 1 mg PO DAILY [facility] Last Admin: 09/08/18 10:16 Dose: 1 mg Furosemide (Lasix Injection -) 80 mg IVPUSH BID@0600,1400 [facility] Last Admin: 09/08/18 13:54 Dose: 80 mg Guaifenesin (Robitussin Dm -) 10 ml PO Q6H PRN PRN Reason: COUGH Last Admin: 09/08/18 01:03 Dose: 10 ml Potassium Chloride (K-Dur -) 20 meq PO DAILY [facility] Last Admin: 09/08/18 10:16 Dose: 20 meq - Objective Vital Signs: Vital Signs Temperature 98.3 F 09/08/18 14:00 Pulse Rate 84 09/08/18 14:00 Respiratory Rate 22 H 09/08/18 09:00 Blood Pressure 117/73 09/08/18 14:00 O2 Sat by Pulse Oximetry (%) 98 09/08/18 09:00 Constitutional: Yes: No Distress HENT: Yes: Atraumatic Neck: Yes: Supple Cardiovascular: Yes: Regular Rate and Rhythm Respiratory: Yes: CTA Bilaterally Gastrointestinal: Yes: Normal Bowel Sounds Extremities: Yes: WNL Edema: Yes Edema: LLE: 1+, RLE: 1+ Neurological: Yes: Alert, Oriented Labs: CBC, BMP 09/03/18 06:00 09/08/18 06:48 INR, PTT INR 1.74 (0.83-1.09) H 09/02/18 15:38 Problem List - Problems (1) Asthma Assessment/Plan: prn nebs Code(s): J45.909 - UNSPECIFIED ASTHMA, UNCOMPLICATED (2) COPD exacerbation Assessment/Plan: on inhaler can have prn nebs Code(s): J44.1 - CHRONIC OBSTRUCTIVE PULMONARY DISEASE W (ACUTE) EXACERBATION (3) HTN (hypertension) Assessment/Plan: continue homemeds Code(s): I10 - ESSENTIAL (PRIMARY) HYPERTENSION (4) Mesothelioma (pleural) Assessment/Plan: s/p chemo and RT Code(s): C45.0 - MESOTHELIOMA OF PLEURA (5) Shortness of breath Code(s): R06.02 - SHORTNESS OF BREATH (6) CHF exacerbation Assessment/Plan: iv lasix dose is increased Code(s): I50.9 - HEART FAILURE, UNSPECIFIED Qualifiers: Heart failure type: unspecified Qualified Code(s): I50.9 - Heart failure, unspecified
[2018-09-09] MEDS: guaiFENesin/D-METHORPHAN HB 10 ML UNIT-DOSE CUPS PO PRN (04:01)
[2018-09-09] MEDS: ACETAMINOPHEN 325 MG TABLET (FP) PO PRN ×2 (04:04→16:09)
[2018-09-09] MEDS: FUROSEMIDE 40 MG/4 ML INJECTABLE VIAL IVPUSH SCH ×2 (06:01→16:07)
--- NOTE | 2018-09-09 10:42 | PN ---
Progress Note (short form) - Note Progress Note: s:still sob, edema present but improving. no chest pain, palps, dizziness. feels weak Current Medications Acetaminophen (Tylenol -) 650 mg PO Q6H PRN PRN Reason: FEVER Last Admin: 09/09/18 04:04 Dose: 650 mg Amlodipine Besylate (Norvasc -) 5 mg PO DAILY [facility] Last Admin: 09/08/18 10:16 Dose: 5 mg Apixaban (Eliquis -) 5 mg PO BID [facility] Last Admin: 09/08/18 21:20 Dose: 5 mg Aspirin (Ecotrin -) 81 mg PO DAILY [facility] Last Admin: 09/08/18 10:16 Dose: 81 mg Budesonide/Formoterol Fumarate (Symbicort 80/4.5mcg -) 2 puff IH BID [facility] Last Admin: 09/08/18 21:19 Dose: 2 puff Carvedilol (Coreg -) 12.5 mg PO BID [facility] Last Admin: 09/08/18 21:20 Dose: 12.5 mg Fenofibric Acid (Trilipix -) 135 mg PO DAILY [facility] Last Admin: 09/08/18 10:17 Dose: 135 mg Folic Acid (Folic Acid -) 1 mg PO DAILY [facility] Last Admin: 09/08/18 10:16 Dose: 1 mg Furosemide (Lasix Injection -) 80 mg IVPUSH BID@0600,1400 [facility] Last Admin: 09/09/18 06:01 Dose: 80 mg Guaifenesin (Robitussin Dm -) 10 ml PO Q6H PRN PRN Reason: COUGH Last Admin: 09/09/18 04:01 Dose: 10 ml Potassium Chloride (K-Dur -) 20 meq PO DAILY [facility] Last Admin: 09/08/18 10:16 Dose: 20 meq Vital Signs Period Temp Pulse Resp BP Sys/Clements Pulse Ox Last 24 Hr 98.1 F-98.9 F 80-96 20-22 100-135/58-88 99-100 Constitutional: Yes: No Distress, Calm Eyes: No: Sclera Icterus HENT: No: Nasal Congestion Cardiovascular: Yes: Regular Rate and Rhythm, JVD (?), S1, S2, Other (PMI non diplaced). No: Gallop, Murmur Respiratory: Yes: CTA Bilaterally, Diminished (L base). No: Accessory Muscle Use, Rales, Wheezes Gastrointestinal: Yes: Normal Bowel Sounds, Soft. No: Tenderness Musculoskeletal: Yes: Other (No kyphosis) Extremities: No: Cool, Cyanosis Edema: yes 1+ cristian lower ext Integumentary: No: Jaundice Neurological: Yes: Alert, Oriented (x3) Psychiatric: No: Agitated Assessment/Plan ECG:afib, rate 95, inferolat twi, no sig change prior echo in 10/15 Dr. Meyer: normal LV, no pericardial effusion (no other signif abnormality) echo 06/2018 nl LV function, mildly reduced RV function, borderline LA enlargement, mild MR, mild TR, RVSP nl, small pericardial effusion <1 cm, no echo indication of tamponade cxr: mild chf tele: afib, rate controlled. NSVT x 5b a/p: SOB, acute diastolic chf, hx of pericardial effusion, mesothelioma, asthma: -recent echos unremarkable -here with vol overload. no signs acs. -+JVD in office with wt trending up from 211 on 07/29/18 to 214 on 08/14, to 224 on 09/02. -cont lasix iv 40 bid. -09/05: still volume up, cr stable, will increase to lasix 80 iv bid. -09/06: cont iv lasix 80 bid, monitor daily wts, chem7. -09/07: wt not decreasing (223-224). renal fxn stable. lasix 80 mg IV BID, received metolazone 2.5 mg x 1 -09/08: wt 223->217, Cr stable, remains volume overloaded. metolazone 2.5 mg today prior to PM lasix dose, lasix 80 mg IV BID -09/09: wt 217->216, Cr stable, still volume up. metolazone 5 mg prior to PM lasix, cont lasix 80 mg IV BID -given pt's behavior (with repeated admits for HFpEF), will consider outpatient evaluation for pericardial constriction (less likely restrictive CMP)--possible CMR or echo at tertiary echo lab afib - continue home eliquis - continue carvedilol, rate ok HTN: -bp controlled -cont home meds CKD: -baseline creat 1.1-1.3 -renal fxn initially worse here, improved, currently 1.4
[2018-09-09 11:23] LABS: ANION GAP 4 MMOL/L (8-16); BLOOD UREA NITROGEN 26 mg/dL (7-18); CALCIUM 9.1 mg/dL (8.5-10.1); CHLORIDE 92 mmol/L (98-107); CO2 41 mmol/L (21-32); CREATININE 1.5 mg/dL (0.55-1.3); GLUCOSE,RANDOM 138 mg/dL (74-106); SODIUM 137 mmol/L (136-145)
[2018-09-09 11:35] LABS: POTASSIUM 2.9 mmol/L (3.5-5.1)
[2018-09-09] MEDS ORDERED: POTASSIUM CHLORIDE TABS 20 MEQ TABLET.ER (FP) PO ONE (12:30)
[2018-09-09] MEDS: ASPIRIN COATED 81 MG TABLET.EC PO SCH (12:47)
[2018-09-09] MEDS: APIXABAN 5 MG TABLET PO SCH ×2 (12:47→21:41)
[2018-09-09] MEDS: amLODIPine BESYLATE 5 MG TABLET (FP) PO SCH (12:47)
[2018-09-09] MEDS: CARVEDILOL 12.5 MG TABLET (FP) PO SCH ×2 (12:48→21:41)
[2018-09-09] MEDS: FOLIC ACID 1 MG TABLET (FP) PO SCH (12:48)
[2018-09-09] MEDS: POTASSIUM CHLORIDE TABS 20 MEQ TABLET.ER (FP) PO SCH (12:48)
[2018-09-09] MEDS: FENOFIBRIC ACID 135 MG CAP PO SCH (12:48)
[2018-09-09] MEDS: BUDESONIDE/FORMETEROL FUMARATE 80/4.5 mcg INHALER IH SCH ×2 (12:55→21:42)
[2018-09-09] MEDS ORDERED: METOLAZONE 5 MG TABLET PO ONE (13:30)
--- NOTE | 2018-09-09 15:28 | PN ---
Progress Note (short form) - Note Progress Note: Patient seen and examined Remains dyspneic and tachypneic Weight loss of 1 lb. Last Vital Signs Temp Pulse Resp BP Pulse Ox 98.3 F 82 22 H 105/65 99 09/09/18 05:58 09/09/18 09:00 09/09/18 09:00 09/09/18 09:00 09/09/18 09:00 HEENT: WILLIAMS, EOM Intact Oropharynx: No thrush, No mucositis Cor: RSR, No murmurs, No gallops Lungs: diminished breath sounds bilaterally Abd: Soft, Normal bowel sounds, No organomegaly, distended Ext: LE edema edema Skin: No rashes, Integument intact CBC, BMP 09/03/18 06:00 09/09/18 10:44 Current Medications Generic Name Dose Route Start Last Admin Trade Name Freq PRN Reason Stop Dose Admin Acetaminophen 650 mg 09/02/18 21:50 09/09/18 04:04 Tylenol - PO 650 mg Q6H PRN Administration FEVER Amlodipine Besylate 5 mg 09/03/18 10:00 09/09/18 12:47 Norvasc - PO 5 mg DAILY J[facility]INE Administration Apixaban 5 mg 09/02/18 22:00 09/09/18 12:47 Eliquis - PO 5 mg BID JANINE Administration Aspirin 81 mg 09/03/18 10:00 09/09/18 12:47 Ecotrin - PO 81 mg DAILY [facility] Administration Budesonide/Formoterol Fumarate 2 puff 09/03/18 10:00 09/09/18 12:55 Symbicort 80/4.5mcg - IH 2 puff BID JANINE Administration Carvedilol 12.5 mg 09/03/18 10:00 09/09/18 12:48 Coreg - PO 12.5 mg BID JANINE Administration Fenofibric Acid 135 mg 09/03/18 10:00 09/09/18 12:48 Trilipix - PO 135 mg DAILY [facility] Administration Folic Acid 1 mg 09/03/18 10:00 09/09/18 12:48 Folic Acid - PO 1 mg DAILY [facility] Administration Furosemide 80 mg 09/05/18 11:23 09/09/18 06:01 Lasix Injection - IVPUSH 80 mg BID@0600,1400 J[facility] Administration Guaifenesin 10 ml 09/06/18 21:57 03/13/19 04:01 Robitussin Dm - PO 10 ml Q6H PRN Administration COUGH Potassium Chloride 20 meq 09/03/18 10:00 09/09/18 12:48 K-Dur - PO 20 meq DAILY [facility] Administration Impression: Mesothelioma Fluid overload CKD Hyperkalemia Continue with diuresis . More aggressive K+ repletion.
--- NOTE | 2018-09-09 17:16 | PN ---
Progress Note, Physician Chief Complaint: doing well - Current Medication List Current Medications: Active Medications Acetaminophen (Tylenol -) 650 mg PO Q6H PRN PRN Reason: FEVER Last Admin: 09/09/18 16:09 Dose: 650 mg Amlodipine Besylate (Norvasc -) 5 mg PO DAILY [facility] Last Admin: 09/09/18 12:47 Dose: 5 mg Apixaban (Eliquis -) 5 mg PO BID [facility] Last Admin: 09/09/18 12:47 Dose: 5 mg Aspirin (Ecotrin -) 81 mg PO DAILY [facility] Last Admin: 09/09/18 12:47 Dose: 81 mg Budesonide/Formoterol Fumarate (Symbicort 80/4.5mcg -) 2 puff IH BID [facility] Last Admin: 09/09/18 12:55 Dose: 2 puff Carvedilol (Coreg -) 12.5 mg PO BID [facility] Last Admin: 09/09/18 12:48 Dose: 12.5 mg Fenofibric Acid (Trilipix -) 135 mg PO DAILY [facility] Last Admin: 09/09/18 12:48 Dose: 135 mg Folic Acid (Folic Acid -) 1 mg PO DAILY [facility] Last Admin: 09/09/18 12:48 Dose: 1 mg Furosemide (Lasix Injection -) 80 mg IVPUSH BID@0600,1400 [facility] Last Admin: 09/09/18 16:07 Dose: 80 mg Gabapentin (Neurontin -) 100 mg PO DAILY [facility] Guaifenesin (Robitussin Dm -) 10 ml PO Q6H PRN PRN Reason: COUGH Last Admin: 09/09/18 04:01 Dose: 10 ml Potassium Chloride (K-Dur -) 20 meq PO DAILY [facility] Last Admin: 09/09/18 12:48 Dose: 20 meq - Objective Vital Signs: Vital Signs Temperature 98.3 F 09/09/18 05:58 Pulse Rate 82 09/09/18 09:00 Respiratory Rate 22 H 09/09/18 09:00 Blood Pressure 105/65 09/09/18 09:00 O2 Sat by Pulse Oximetry (%) 99 09/09/18 09:00 Constitutional: Yes: No Distress HENT: Yes: Atraumatic Neck: Yes: Supple Cardiovascular: Yes: Regular Rate and Rhythm Respiratory: Yes: CTA Bilaterally Gastrointestinal: Yes: Normal Bowel Sounds Extremities: Yes: WNL Edema: Yes Edema: LLE: 1+, RLE: 1+ Neurological: Yes: Alert, Oriented Labs: CBC, BMP 09/03/18 06:00 09/09/18 10:44 INR, PTT INR 1.74 (0.83-1.09) H 09/02/18 15:38 Problem List - Problems (1) Asthma Assessment/Plan: prn nebs Code(s): J45.909 - UNSPECIFIED ASTHMA, UNCOMPLICATED (2) COPD exacerbation Assessment/Plan: on inhaler can have prn nebs Code(s): J44.1 - CHRONIC OBSTRUCTIVE PULMONARY DISEASE W (ACUTE) EXACERBATION (3) HTN (hypertension) Assessment/Plan: continue homemeds Code(s): I10 - ESSENTIAL (PRIMARY) HYPERTENSION (4) Mesothelioma (pleural) Code(s): C45.0 - MESOTHELIOMA OF PLEURA (5) Shortness of breath Code(s): R06.02 - SHORTNESS OF BREATH (6) CHF exacerbation Code(s): I50.9 - HEART FAILURE, UNSPECIFIED Qualifiers: Heart failure type: unspecified Qualified Code(s): I50.9 - Heart failure, unspecified
[2018-09-09] MEDS ORDERED: GABAPENTIN 100 MG CAPSULE (FP) PO SCH (22:00)
[2018-09-10] MEDS: FUROSEMIDE 40 MG/4 ML INJECTABLE VIAL IVPUSH SCH ×2 (06:06→13:40)
[2018-09-10 07:38] LABS: BASO % 0.6 % (0-2.0); EOS % 2.6 % (0-4.5); HEMATOCRIT 32.9 % (35.4-49); LYMPH % 21.4 % (8-40); MCH 27.7 pg (25.7-33.7); MCHC 33.4 g/dl (32.0-35.9); MEAN CELL VOLUME 82.8 fl (80-96); MEAN PLT VOLUME 7.8 fl (7.5-11.1); MONO % 17.4 % (3.8-10.2); PLATELET COUNT 323 K/MM3 (134-434); RBC 3.97 M/mm3 (4.00-5.60); RDW 15.9 % (11.9-15.9); WHITE BLOOD COUNT 5.9 K/mm3 (4.0-10.0)
[2018-09-10 08:04] LABS: ALBUMIN 3.3 g/dl (3.4-5.0); ALK PHOS 59 U/L (45-117); ANION GAP 8 MMOL/L (8-16); BILIRUBIN,TOTAL 0.5 mg/dL (0.2-1); BLOOD UREA NITROGEN 32 mg/dL (7-18); CALCIUM 8.9 mg/dL (8.5-10.1); CHLORIDE 93 mmol/L (98-107); CO2 39 mmol/L (21-32); CREATININE 1.6 mg/dL (0.55-1.3); GLUCOSE,RANDOM 90 mg/dL (74-106); POTASSIUM 3.3 mmol/L (3.5-5.1); SGOT/AST 10 U/L (15-37); SGPT/ALT 25 U/L (13-61); SODIUM 139 mmol/L (136-145); TOT PROT 6.7 g/dl (6.4-8.2)
[2018-09-10] MEDS: CARVEDILOL 12.5 MG TABLET (FP) PO SCH ×2 (09:47→21:10)
[2018-09-10] MEDS: APIXABAN 5 MG TABLET PO SCH ×2 (09:47→21:10)
[2018-09-10] MEDS: GABAPENTIN 100 MG CAPSULE (FP) PO SCH (09:47)
[2018-09-10] MEDS: ASPIRIN COATED 81 MG TABLET.EC PO SCH (09:47)
[2018-09-10] MEDS: POTASSIUM CHLORIDE TABS 20 MEQ TABLET.ER (FP) PO SCH (09:48)
[2018-09-10] MEDS: BUDESONIDE/FORMETEROL FUMARATE 80/4.5 mcg INHALER IH SCH ×2 (09:48→21:12)
[2018-09-10] MEDS: FOLIC ACID 1 MG TABLET (FP) PO SCH (09:48)
[2018-09-10] MEDS: amLODIPine BESYLATE 5 MG TABLET (FP) PO SCH (09:48)
[2018-09-10] MEDS: FENOFIBRIC ACID 135 MG CAP PO SCH (09:48)
--- NOTE | 2018-09-10 10:21 | PN ---
Progress Note (short form) - Note Progress Note: s: no cp palps dizzy; sob and le edema better Current Medications Generic Name Dose Route Start Last Admin Trade Name Freq PRN Reason Stop Dose Admin Acetaminophen 650 mg 09/02/18 21:50 09/09/18 16:09 Tylenol - PO 650 mg Q6H PRN Administration FEVER Amlodipine Besylate 5 mg 09/03/18 10:00 09/10/18 09:48 Norvasc - PO 5 mg DAILY [facility] Administration Apixaban 5 mg 09/02/18 22:00 09/10/18 09:47 Eliquis - PO 5 mg BID [facility] Administration Aspirin 81 mg 09/03/18 10:00 09/10/18 09:47 Ecotrin - PO 81 mg DAILY [facility] Administration Budesonide/Formoterol Fumarate 2 puff 09/03/18 10:00 09/10/18 09:48 Symbicort 80/4.5mcg - IH 2 puff BID [facility] Administration Carvedilol 12.5 mg 09/03/18 10:00 09/10/18 09:47 Coreg - PO 12.5 mg BID [facility] Administration Fenofibric Acid 135 mg 09/03/18 10:00 09/10/18 09:48 Trilipix - PO 135 mg DAILY [facility] Administration Folic Acid 1 mg 09/03/18 10:00 09/10/18 09:48 Folic Acid - PO 1 mg DAILY [facility] Administration Furosemide 80 mg 09/05/18 11:23 09/10/18 06:06 Lasix Injection - IVPUSH 80 mg BID@0600,1400 [facility] Administration Gabapentin 100 mg 09/09/18 16:30 09/10/18 09:47 Neurontin - PO 100 mg DAILY [facility] Administration Guaifenesin 10 ml 09/06/18 21:57 09/09/18 04:01 Robitussin Dm - PO 10 ml Q6H PRN Administration COUGH Metolazone 5 mg 09/10/18 13:30 Zaroxolyn - PO 09/10/18 13:31 ONCE ONE Potassium Chloride 20 meq 09/03/18 10:00 09/10/18 09:48 K-Dur - PO 20 meq DAILY [facility] Administration Potassium Chloride 40 meq 09/10/18 12:00 K-Dur - PO 09/10/18 12:01 ONCE ONE Vital Signs Period Temp Pulse Resp BP Sys/Clements Pulse Ox Last 24 Hr 97.7 F-98.3 F 85-92 18-20 106-111/58-80 99 Constitutional: Yes: Well Nourished, No Distress Eyes: No: Sclera Icterus HENT: No: Nasal Congestion Neck: No: Decreased ROM Respiratory: Yes: CTA Bilaterally, Diminished (bases). No: Accessory Muscle Use , Rales, Wheezes Gastrointestinal: Yes: Normal Bowel Sounds, +Distention. No: Hepatomegaly, Palpable Mass, Tenderness Cardiovascular: Yes: Regular Rate and Rhythm JVD: No Carotid Bruit: No PMI: Non-Displaced Heart Sounds: Yes: S1, S2. No: Gallop Murmur: No: Systolic Murmur, Diastolic Murmur Extremities: No: Cool, Cyanosis Edema: trace le edema bl Integumentary: No: Jaundice Neurological: Yes: Alert, Oriented (x3) Psychiatric: No: Agitated CBC, BMP 09/10/18 06:00 09/10/18 06:00 ECG:afib, rate 95, inferolat twi, no sig change prior echo in 10/15 Dr. Meyer: normal LV, no pericardial effusion (no other signif abnormality) echo 06/2018 nl LV function, mildly reduced RV function, borderline LA enlargement, mild MR, mild TR, RVSP nl, small pericardial effusion <1 cm, no echo indication of tamponade tele: afib, rate controlled cxr: mild chf a/p: SOB, acute diastolic chf, hx of pericardial effusion, mesothelioma, asthma: -recent echos unremarkable -here with vol overload. no signs acs. -+JVD in office with wt trending up from 211 on 07/29/18 to 214 on 08/14, to 224 on 09/02. -cont lasix iv 40 bid. -09/05: still volume up, cr stable, will increase to lasix 80 iv bid. -09/06: cont iv lasix 80 bid, monitor daily wts, chem7. -09/07: wt not decreasing (223-224). renal fxn stable. lasix 80 mg IV BID, received metolazone 2.5 mg x 1 -09/08: wt 223->217, Cr stable, remains volume overloaded. metolazone 2.5 mg today prior to PM lasix dose, lasix 80 mg IV BID -09/09-4: wt decreasing, Cr stable, still volume up. metolazone 5 mg prior to PM lasix, cont lasix 80 mg IV BID -given pt's behavior (with repeated admits for HFpEF), will consider outpatient evaluation for pericardial constriction (less likely restrictive CMP)--possible CMR or echo at tertiary echo lab afib - continue home eliquis - continue carvedilol, rate ok HTN: -bp controlled -cont home meds CKD: -baseline creat 1.1-1.3 -renal fxn initially worse here, improved
[2018-09-10] MEDS ORDERED: POTASSIUM CHLORIDE TABS 20 MEQ TABLET.ER (FP) PO ONE (12:00)
[2018-09-10 12:51] VITALS: BMI 32.5
[2018-09-10] MEDS ORDERED: METOLAZONE 5 MG TABLET PO ONE (13:30)
--- NOTE | 2018-09-10 19:23 | PN ---
Progress Note, Physician Chief Complaint: doing well - Current Medication List Current Medications: Active Medications Acetaminophen (Tylenol -) 650 mg PO Q6H PRN PRN Reason: FEVER Last Admin: 09/09/18 16:09 Dose: 650 mg Amlodipine Besylate (Norvasc -) 5 mg PO DAILY [facility] Last Admin: 09/10/18 09:48 Dose: 5 mg Apixaban (Eliquis -) 5 mg PO BID [facility] Last Admin: 09/10/18 09:47 Dose: 5 mg Aspirin (Ecotrin -) 81 mg PO DAILY [facility] Last Admin: 09/10/18 09:47 Dose: 81 mg Budesonide/Formoterol Fumarate (Symbicort 80/4.5mcg -) 2 puff IH BID [facility] Last Admin: 09/10/18 09:48 Dose: 2 puff Carvedilol (Coreg -) 12.5 mg PO BID [facility] Last Admin: 09/10/18 09:47 Dose: 12.5 mg Fenofibric Acid (Trilipix -) 135 mg PO DAILY [facility] Last Admin: 09/10/18 09:48 Dose: 135 mg Folic Acid (Folic Acid -) 1 mg PO DAILY [facility] Last Admin: 09/10/18 09:48 Dose: 1 mg Furosemide (Lasix Injection -) 80 mg IVPUSH BID@0600,1400 [facility] Last Admin: 09/10/18 13:40 Dose: 80 mg Gabapentin (Neurontin -) 100 mg PO DAILY [facility] Last Admin: 09/10/18 09:47 Dose: 100 mg Guaifenesin (Robitussin Dm -) 10 ml PO Q6H PRN PRN Reason: COUGH Last Admin: 09/09/18 04:01 Dose: 10 ml Potassium Chloride (K-Dur -) 20 meq PO DAILY [facility] Last Admin: 09/10/18 09:48 Dose: 20 meq - Objective Vital Signs: Vital Signs Temperature 98.3 F 09/10/18 14:00 Pulse Rate 94 H 09/10/18 14:00 Respiratory Rate 22 H 09/10/18 14:00 Blood Pressure 108/50 L 09/10/18 14:00 O2 Sat by Pulse Oximetry (%) 99 09/10/18 09:00 Constitutional: Yes: No Distress HENT: Yes: Atraumatic Neck: Yes: Supple Cardiovascular: Yes: Regular Rate and Rhythm Respiratory: Yes: CTA Bilaterally Gastrointestinal: Yes: Normal Bowel Sounds Extremities: Yes: WNL Edema: Yes Edema: LLE: 1+, RLE: 1+ Neurological: Yes: Alert, Oriented Labs: CBC, BMP 09/10/18 06:00 09/10/18 06:00 INR, PTT INR 1.74 (0.83-1.09) H 09/02/18 15:38 Problem List - Problems (1) Asthma Assessment/Plan: prn nebs Code(s): J45.909 - UNSPECIFIED ASTHMA, UNCOMPLICATED (2) COPD exacerbation Assessment/Plan: on inhaler can have prn nebs Code(s): J44.1 - CHRONIC OBSTRUCTIVE PULMONARY DISEASE W (ACUTE) EXACERBATION (3) HTN (hypertension) Assessment/Plan: continue homemeds Code(s): I10 - ESSENTIAL (PRIMARY) HYPERTENSION (4) Mesothelioma (pleural) Assessment/Plan: s/p chemo and RT Code(s): C45.0 - MESOTHELIOMA OF PLEURA (5) Shortness of breath Code(s): R06.02 - SHORTNESS OF BREATH (6) CHF exacerbation Assessment/Plan: iv lasix dose is increased BY CARDIOLOGY Code(s): I50.9 - HEART FAILURE, UNSPECIFIED Qualifiers: Heart failure type: unspecified Qualified Code(s): I50.9 - Heart failure, unspecified
[2018-09-10] MEDS: ACETAMINOPHEN 325 MG TABLET (FP) PO PRN (21:10)
[2018-09-11] MEDS: FUROSEMIDE 40 MG/4 ML INJECTABLE VIAL IVPUSH SCH ×2 (06:46→13:09)
[2018-09-11 08:03] LABS: ANION GAP 7 MMOL/L (8-16); BLOOD UREA NITROGEN 38 mg/dL (7-18); CALCIUM 9.4 mg/dL (8.5-10.1); CHLORIDE 90 mmol/L (98-107); CO2 38 mmol/L (21-32); CREATININE 1.6 mg/dL (0.55-1.3); GLUCOSE,RANDOM 90 mg/dL (74-106); POTASSIUM 3.2 mmol/L (3.5-5.1); SODIUM 136 mmol/L (136-145)
[2018-09-11] MEDS: ASPIRIN COATED 81 MG TABLET.EC PO SCH (10:25)
[2018-09-11] MEDS: POTASSIUM CHLORIDE TABS 20 MEQ TABLET.ER (FP) PO SCH (10:25)
[2018-09-11] MEDS: amLODIPine BESYLATE 5 MG TABLET (FP) PO SCH (10:26)
[2018-09-11] MEDS: FENOFIBRIC ACID 135 MG CAP PO SCH (10:26)
[2018-09-11] MEDS: GABAPENTIN 100 MG CAPSULE (FP) PO SCH (10:26)
[2018-09-11] MEDS: CARVEDILOL 12.5 MG TABLET (FP) PO SCH ×2 (10:26→22:02)
[2018-09-11] MEDS: APIXABAN 5 MG TABLET PO SCH ×2 (10:26→22:02)
[2018-09-11] MEDS: FOLIC ACID 1 MG TABLET (FP) PO SCH (10:26)
[2018-09-11] MEDS: BUDESONIDE/FORMETEROL FUMARATE 80/4.5 mcg INHALER IH SCH ×2 (10:26→22:03)
--- NOTE | 2018-09-11 10:29 | PN ---
Progress Note (short form) - Note Progress Note: s: no cp palps dizzy; sob and le edema better Current Medications Generic Name Dose Route Start Last Admin Trade Name Freq PRN Reason Stop Dose Admin Acetaminophen 650 mg 09/02/18 21:50 09/10/18 21:10 Tylenol - PO 650 mg Q6H PRN Administration FEVER Amlodipine Besylate 5 mg 09/03/18 10:00 09/11/18 10:26 Norvasc - PO 5 mg DAILY [facility] Administration Apixaban 5 mg 09/02/18 22:00 09/11/18 10:26 Eliquis - PO 5 mg BID [facility]ANINE Administration Aspirin 81 mg 09/03/18 10:00 09/11/18 10:25 Ecotrin - PO 81 mg DAILY [facility] Administration Budesonide/Formoterol Fumarate 2 puff 09/03/18 10:00 09/11/18 10:26 Symbicort 80/4.5mcg - IH 2 puff BID JANINE Administration Carvedilol 12.5 mg 09/03/18 10:00 09/11/18 10:26 Coreg - PO 12.5 mg BID JANINE Administration Fenofibric Acid 135 mg 09/03/18 10:00 09/11/18 10:26 Trilipix - PO 135 mg DAILY [facility] Administration Folic Acid 1 mg 09/03/18 10:00 09/11/18 10:26 Folic Acid - PO 1 mg DAILY [facility] Administration Furosemide 80 mg 09/05/18 11:23 09/11/18 06:46 Lasix Injection - IVPUSH 80 mg BID@0600,1400 J[facility]INE Administration Gabapentin 100 mg 09/09/18 16:30 09/11/18 10:26 Neurontin - PO 100 mg DAILY [facility] Administration Guaifenesin 10 ml 09/06/18 21:57 09/09/18 04:01 Robitussin Dm - PO 10 ml Q6H PRN Administration COUGH Potassium Chloride 20 meq 09/03/18 10:00 09/11/18 10:25 K-Dur - PO 20 meq DAILY [facility] Administration Potassium Chloride 40 meq 09/11/18 12:00 K-Dur - PO 09/11/18 12:01 ONCE ONE Vital Signs Period Temp Pulse Resp BP Sys/Clements Pulse Ox Last 24 Hr 98.0 F-98.7 F 89-97 22-22 104-112/50-73 99 Constitutional: Yes: Well Nourished, No Distress Eyes: No: Sclera Icterus HENT: No: Nasal Congestion Neck: No: Decreased ROM Respiratory: Yes: CTA Bilaterally, Diminished (bases). No: Accessory Muscle Use , Rales, Wheezes Gastrointestinal: Yes: Normal Bowel Sounds, +Distention. No: Hepatomegaly, Palpable Mass, Tenderness Cardiovascular: Yes: Regular Rate and Rhythm JVD: No Carotid Bruit: No PMI: Non-Displaced Heart Sounds: Yes: S1, S2. No: Gallop Murmur: No: Systolic Murmur, Diastolic Murmur Extremities: No: Cool, Cyanosis Edema: no Integumentary: No: Jaundice Neurological: Yes: Alert, Oriented (x3) Psychiatric: No: Agitated CBC, BMP 09/10/18 06:00 09/11/18 05:30 ECG:afib, rate 95, inferolat twi, no sig change prior echo in 10/15 Dr. Meyer: normal LV, no pericardial effusion (no other signif abnormality) echo 06/2018 nl LV function, mildly reduced RV function, borderline LA enlargement, mild MR, mild TR, RVSP nl, small pericardial effusion <1 cm, no echo indication of tamponade tele: afib, rate controlled cxr: mild chf a/p: SOB, acute diastolic chf, hx of pericardial effusion, mesothelioma, asthma: -recent echos unremarkable -here with vol overload. no signs acs. -+JVD in office with wt trending up from 211 on 07/29/18 to 214 on 08/14, to 224 on 09/02. -cont lasix iv 40 bid. -09/05: still volume up, cr stable, will increase to lasix 80 iv bid. -09/06: cont iv lasix 80 bid, monitor daily wts, chem7. -09/07: wt not decreasing (223-224). renal fxn stable. lasix 80 mg IV BID, received metolazone 2.5 mg x 1 -09/08: wt 223->217, Cr stable, remains volume overloaded. metolazone 2.5 mg today prior to PM lasix dose, lasix 80 mg IV BID -09/09-4: wt decreasing, Cr stable, still volume up. metolazone 5 mg prior to PM lasix, cont lasix 80 mg IV BID -09/11: cont iv lasix. may be approaching dry wt as bun/cr rising at wt loss slowing. if bun/cr cont to trend up tomorrow would change to po diuretics. -given pt's behavior (with repeated admits for HFpEF), will consider outpatient evaluation for pericardial constriction (less likely restrictive CMP)--possible CMR or echo at tertiary echo lab afib - continue home eliquis - continue carvedilol, rate ok HTN: -bp controlled -cont home meds CKD: -baseline creat 1.1-1.3 -renal fxn initially worse here
[2018-09-11] MEDS ORDERED: POTASSIUM CHLORIDE TABS 20 MEQ TABLET.ER (FP) PO ONE (12:00)
[2018-09-11] MEDS ORDERED: FUROSEMIDE 40 MG/4 ML INJECTABLE VIAL IVPUSH SCH (18:06)
--- NOTE | 2018-09-11 18:06 | PN ---
Progress Note, Physician Chief Complaint: doing well - Current Medication List Current Medications: Active Medications Acetaminophen (Tylenol -) 650 mg PO Q6H PRN PRN Reason: FEVER Last Admin: 09/10/18 21:10 Dose: 650 mg Amlodipine Besylate (Norvasc -) 5 mg PO DAILY [facility] Last Admin: 09/11/18 10:26 Dose: 5 mg Apixaban (Eliquis -) 5 mg PO BID [facility] Last Admin: 09/11/18 10:26 Dose: 5 mg Aspirin (Ecotrin -) 81 mg PO DAILY [facility] Last Admin: 09/11/18 10:25 Dose: 81 mg Budesonide/Formoterol Fumarate (Symbicort 80/4.5mcg -) 2 puff IH BID [facility] Last Admin: 09/11/18 10:26 Dose: 2 puff Carvedilol (Coreg -) 12.5 mg PO BID [facility] Last Admin: 09/11/18 10:26 Dose: 12.5 mg Fenofibric Acid (Trilipix -) 135 mg PO DAILY [facility] Last Admin: 09/11/18 10:26 Dose: 135 mg Folic Acid (Folic Acid -) 1 mg PO DAILY [facility] Last Admin: 09/11/18 10:26 Dose: 1 mg Furosemide (Lasix Injection -) 80 mg IVPUSH BID@0600,1400 [facility] Last Admin: 09/11/18 13:09 Dose: 80 mg Gabapentin (Neurontin -) 100 mg PO DAILY [facility] Last Admin: 09/11/18 10:26 Dose: 100 mg Guaifenesin (Robitussin Dm -) 10 ml PO Q6H PRN PRN Reason: COUGH Last Admin: 09/09/18 04:01 Dose: 10 ml Potassium Chloride (K-Dur -) 20 meq PO DAILY [facility] Last Admin: 09/11/18 10:25 Dose: 20 meq - Objective Vital Signs: Vital Signs Temperature 98 F 09/11/18 14:49 Pulse Rate 97 H 09/11/18 14:49 Respiratory Rate 19 09/11/18 14:49 Blood Pressure 110/57 L 09/11/18 14:49 O2 Sat by Pulse Oximetry (%) 99 09/11/18 09:00 Constitutional: Yes: No Distress HENT: Yes: Atraumatic Neck: Yes: Supple Cardiovascular: Yes: Regular Rate and Rhythm Respiratory: Yes: CTA Bilaterally Gastrointestinal: Yes: Normal Bowel Sounds Extremities: Yes: WNL Edema: Yes Edema: LLE: Trace, RLE: Trace Labs: CBC, BMP 09/10/18 06:00 09/11/18 05:30 INR, PTT INR 1.74 (0.83-1.09) H 09/02/18 15:38 Problem List - Problems (1) Asthma Assessment/Plan: prn nebs Code(s): J45.909 - UNSPECIFIED ASTHMA, UNCOMPLICATED (2) COPD exacerbation Assessment/Plan: on inhaler can have prn nebs Code(s): J44.1 - CHRONIC OBSTRUCTIVE PULMONARY DISEASE W (ACUTE) EXACERBATION (3) HTN (hypertension) Assessment/Plan: continue homemeds Code(s): I10 - ESSENTIAL (PRIMARY) HYPERTENSION (4) Mesothelioma (pleural) Assessment/Plan: s/p chemo and RT Code(s): C45.0 - MESOTHELIOMA OF PLEURA (5) Shortness of breath Code(s): R06.02 - SHORTNESS OF BREATH (6) CHF exacerbation Assessment/Plan: iv lasix dose is increased BY CARDIOLOGY Code(s): I50.9 - HEART FAILURE, UNSPECIFIED Qualifiers: Heart failure type: unspecified Qualified Code(s): I50.9 - Heart failure, unspecified
--- NOTE | 2018-09-12 09:40 | PN ---
Progress Note, Physician Chief Complaint: sob History of Present Illness: sob much better but signif off his baseline. feels breathless walking 10 feet to bathroom and back. no cp. no leg swelling. no palpitations. no cigs - Current Medication List Current Medications: Active Medications Acetaminophen (Tylenol -) 650 mg PO Q6H PRN PRN Reason: FEVER Last Admin: 09/10/18 21:10 Dose: 650 mg Amlodipine Besylate (Norvasc -) 5 mg PO DAILY [facility] Last Admin: 09/11/18 10:26 Dose: 5 mg Apixaban (Eliquis -) 5 mg PO BID [facility] Last Admin: 09/11/18 22:02 Dose: 5 mg Aspirin (Ecotrin -) 81 mg PO DAILY [facility] Last Admin: 09/11/18 10:25 Dose: 81 mg Budesonide/Formoterol Fumarate (Symbicort 80/4.5mcg -) 2 puff IH BID [facility] Last Admin: 09/11/18 22:03 Dose: 2 puff Carvedilol (Coreg -) 12.5 mg PO BID [facility] Last Admin: 09/11/18 22:02 Dose: 12.5 mg Fenofibric Acid (Trilipix -) 135 mg PO DAILY [facility] Last Admin: 09/11/18 10:26 Dose: 135 mg Folic Acid (Folic Acid -) 1 mg PO DAILY [facility] Last Admin: 09/11/18 10:26 Dose: 1 mg Furosemide (Lasix Injection -) 40 mg IVPUSH BID@0600,1400 [facility] Last Admin: 09/12/18 06:09 Dose: 40 mg Gabapentin (Neurontin -) 100 mg PO DAILY [facility] Last Admin: 09/11/18 10:26 Dose: 100 mg Guaifenesin (Robitussin Dm -) 10 ml PO Q6H PRN PRN Reason: COUGH Last Admin: 09/09/18 04:01 Dose: 10 ml Potassium Chloride (K-Dur -) 20 meq PO DAILY [facility] Last Admin: 09/11/18 10:25 Dose: 20 meq - Objective Vital Signs: Vital Signs Temperature 98.3 F 09/12/18 06:00 Pulse Rate 86 09/12/18 06:00 Respiratory Rate 19 09/12/18 06:00 Blood Pressure 100/61 09/12/18 06:00 O2 Sat by Pulse Oximetry (%) 98 09/11/18 21:00 Constitutional: Yes: No Distress, Calm Eyes: No: Sclera Icterus HENT: No: Nasal Congestion Cardiovascular: Yes: Regular Rate and Rhythm, JVD, S1, S2, Other (PMI non diplaced). No: Gallop, Murmur, Rub Respiratory: Yes: CTA Bilaterally. No: Accessory Muscle Use, Rales, Wheezes Gastrointestinal: Yes: Normal Bowel Sounds, Soft. No: Tenderness Musculoskeletal: Yes: Other (No kyphosis) Extremities: No: Cold Edema: No Integumentary: No: Jaundice Neurological: Yes: Alert, Oriented (x3) Psychiatric: No: Agitated Labs: CBC, BMP 09/10/18 06:00 09/11/18 05:30 INR, PTT INR 1.74 (0.83-1.09) H 09/02/18 15:38 Assessment/Plan ECG:afib, rate 95, inferolat twi, no sig change prior echo in 10/15 Dr. Meyer: normal LV, no pericardial effusion (no other signif abnormality) echo 06/2018 nl LV function, mildly reduced RV function, borderline LA enlargement, mild MR, mild TR, RVSP nl, small pericardial effusion <1 cm, no echo indication of tamponade cxr: mild chf tele: afib, good HR a/p: SOB, acute diastolic chf, hx of pericardial effusion, mesothelioma, asthma: -recent echos unremarkable -here with vol overload. no signs acs. -+JVD in office with wt trending up from 211 on 07/29/18 to 214 on 08/14, to 224 on 09/02. -cont lasix iv 40 bid. -09/05: still volume up, cr stable, will increase to lasix 80 iv bid. -09/06: cont iv lasix 80 bid, monitor daily wts, chem7. -09/07: wt not decreasing (223-224). renal fxn stable. lasix 80 mg IV BID, received metolazone 2.5 mg x 1 -09/08: wt 223->217, Cr stable, remains volume overloaded. metolazone 2.5 mg today prior to PM lasix dose, lasix 80 mg IV BID -09/09-4: wt decreasing, Cr stable, still volume up. metolazone 5 mg prior to PM lasix, cont lasix 80 mg IV BID -09/11: cont iv lasix. may be approaching dry wt as bun/cr rising at wt loss slowing. if bun/cr cont to trend up tomorrow would change to po diuretics. -09/12: wt 212, now at prior office dry wt. and bun/creat rising today. however he remains with JVD and with NYHA III sob sx's which are worse than his baseline. to have outpt CMR and/or RHC to exclude pericardial constriction ( which could cause chronically high filling pressures and sob despite normovolemia). will stop lasix IV (s/p one dose this morning). will change from 40 IV BID to 40 po qd in AM tomorrow. rpt bmp in am afib - continue home eliquis - HR good--continue carvedilol HTN: -bp controlled, running low normal 100s consistently -given aggressive diuresis, will hold amlodipine and cont carvedilol for now -observe BP trend CKD: -creat rising now vs baseline. ? new baseline related to chf -monitor labs trend closely
[2018-09-12] MEDS: APIXABAN 5 MG TABLET PO SCH ×2 (09:48→21:45)
[2018-09-12] MEDS: FOLIC ACID 1 MG TABLET (FP) PO SCH (09:48)
[2018-09-12] MEDS: FENOFIBRIC ACID 135 MG CAP PO SCH (09:48)
[2018-09-12] MEDS: ASPIRIN COATED 81 MG TABLET.EC PO SCH (09:48)
[2018-09-12] MEDS: CARVEDILOL 12.5 MG TABLET (FP) PO SCH ×2 (09:48→21:45)
[2018-09-12] MEDS: GABAPENTIN 100 MG CAPSULE (FP) PO SCH (09:48)
[2018-09-12] MEDS: POTASSIUM CHLORIDE TABS 20 MEQ TABLET.ER (FP) PO SCH (09:48)
[2018-09-12] MEDS: BUDESONIDE/FORMETEROL FUMARATE 80/4.5 mcg INHALER IH SCH ×2 (09:49→21:46)
[2018-09-12 12:30] LABS: ANION GAP 5 MMOL/L (8-16); BLOOD UREA NITROGEN 41 mg/dL (7-18); CALCIUM 9.4 mg/dL (8.5-10.1); CHLORIDE 87 mmol/L (98-107); CO2 43 mmol/L (21-32); CREATININE 1.8 mg/dL (0.55-1.3); GLUCOSE,RANDOM 147 mg/dL (74-106); POTASSIUM 3.1 mmol/L (3.5-5.1); SODIUM 134 mmol/L (136-145)
--- NOTE | 2018-09-12 15:33 | PN ---
Progress Note, Physician - Current Medication List Current Medications: Active Medications Acetaminophen (Tylenol -) 650 mg PO Q6H PRN PRN Reason: FEVER Last Admin: 09/10/18 21:10 Dose: 650 mg Apixaban (Eliquis -) 5 mg PO BID [facility] Last Admin: 09/12/18 09:48 Dose: 5 mg Aspirin (Ecotrin -) 81 mg PO DAILY [facility] Last Admin: 09/12/18 09:48 Dose: 81 mg Budesonide/Formoterol Fumarate (Symbicort 80/4.5mcg -) 2 puff IH BID [facility] Last Admin: 09/12/18 09:49 Dose: 2 puff Carvedilol (Coreg -) 12.5 mg PO BID [facility] Last Admin: 09/12/18 09:48 Dose: 12.5 mg Fenofibric Acid (Trilipix -) 135 mg PO DAILY [facility] Last Admin: 09/12/18 09:48 Dose: 135 mg Folic Acid (Folic Acid -) 1 mg PO DAILY [facility] Last Admin: 09/12/18 09:48 Dose: 1 mg Furosemide (Lasix -) 40 mg PO DAILY [facility] Gabapentin (Neurontin -) 100 mg PO DAILY [facility] Last Admin: 09/12/18 09:48 Dose: 100 mg Guaifenesin (Robitussin Dm -) 10 ml PO Q6H PRN PRN Reason: COUGH Last Admin: 09/09/18 04:01 Dose: 10 ml Potassium Chloride (K-Dur -) 20 meq PO DAILY [facility] Last Admin: 09/12/18 09:48 Dose: 20 meq - Objective Vital Signs: Vital Signs Temperature 98.5 F 09/12/18 10:00 Pulse Rate 96 H 09/12/18 10:00 Respiratory Rate 20 09/12/18 10:00 Blood Pressure 122/76 09/12/18 10:00 O2 Sat by Pulse Oximetry (%) 98 09/12/18 09:00 Constitutional: Yes: No Distress HENT: Yes: Atraumatic Neck: Yes: Supple Cardiovascular: Yes: Regular Rate and Rhythm Respiratory: Yes: CTA Bilaterally Gastrointestinal: Yes: Normal Bowel Sounds Extremities: Yes: WNL Neurological: Yes: Alert, Oriented Labs: CBC, BMP 09/10/18 06:00 09/12/18 11:19 INR, PTT INR 1.74 (0.83-1.09) H 09/02/18 15:38 Problem List - Problems (1) Asthma Assessment/Plan: prn nebs Code(s): J45.909 - UNSPECIFIED ASTHMA, UNCOMPLICATED (2) COPD exacerbation Assessment/Plan: on inhaler can have prn nebs Code(s): J44.1 - CHRONIC OBSTRUCTIVE PULMONARY DISEASE W (ACUTE) EXACERBATION (3) HTN (hypertension) Assessment/Plan: continue homemeds Code(s): I10 - ESSENTIAL (PRIMARY) HYPERTENSION (4) Mesothelioma (pleural) Assessment/Plan: s/p chemo and RT Code(s): C45.0 - MESOTHELIOMA OF PLEURA (5) Shortness of breath Code(s): R06.02 - SHORTNESS OF BREATH (6) CHF exacerbation Assessment/Plan: on lasix 40 po daily Code(s): I50.9 - HEART FAILURE, UNSPECIFIED Qualifiers: Heart failure type: unspecified Qualified Code(s): I50.9 - Heart failure, unspecified
--- NOTE | 2018-09-12 18:49 | PN ---
Progress Note, Physician History of Present Illness: Breathing is better. Still occasionally SOB when walking to bathroom even with O2 - Current Medication List Current Medications: Active Medications Acetaminophen (Tylenol -) 650 mg PO Q6H PRN PRN Reason: FEVER Last Admin: 09/10/18 21:10 Dose: 650 mg Apixaban (Eliquis -) 5 mg PO BID [facility] Last Admin: 09/12/18 09:48 Dose: 5 mg Aspirin (Ecotrin -) 81 mg PO DAILY [facility] Last Admin: 09/12/18 09:48 Dose: 81 mg Budesonide/Formoterol Fumarate (Symbicort 80/4.5mcg -) 2 puff IH BID [facility] Last Admin: 09/12/18 09:49 Dose: 2 puff Carvedilol (Coreg -) 12.5 mg PO BID [facility] Last Admin: 09/12/18 09:48 Dose: 12.5 mg Fenofibric Acid (Trilipix -) 135 mg PO DAILY [facility] Last Admin: 09/12/18 09:48 Dose: 135 mg Folic Acid (Folic Acid -) 1 mg PO DAILY [facility] Last Admin: 09/12/18 09:48 Dose: 1 mg Furosemide (Lasix -) 40 mg PO DAILY [facility] Gabapentin (Neurontin -) 100 mg PO DAILY [facility] Last Admin: 09/12/18 09:48 Dose: 100 mg Guaifenesin (Robitussin Dm -) 10 ml PO Q6H PRN PRN Reason: COUGH Last Admin: 09/09/18 04:01 Dose: 10 ml Potassium Chloride (K-Dur -) 40 meq PO DAILY [facility] - Objective Vital Signs: Vital Signs Temperature 97.9 F 09/12/18 14:00 Pulse Rate 88 09/12/18 14:00 Respiratory Rate 20 09/12/18 10:00 Blood Pressure 107/72 09/12/18 14:00 O2 Sat by Pulse Oximetry (%) 98 09/12/18 09:00 Constitutional: Yes: Well Nourished, No Distress Eyes: Yes: Conjunctiva Clear Cardiovascular: Yes: Regular Rate and Rhythm Respiratory: Yes: WNL, Regular, CTA Bilaterally Edema: LLE: 1+, RLE: 1+ Labs: CBC, BMP 09/10/18 06:00 09/12/18 11:19 INR, PTT INR 1.74 (0.83-1.09) H 09/02/18 15:38 Assessment/Plan 68M with COPD, CHF, CKD, AF on Eliquis, mesothelioma dx 2 years ago, s/p carbo/ alimta with eventual POD, now on nivolumab since 12/2017 (c11 on 07/06/18), recent hx of pericardial effusion presented with SOB x 1 week and LE edema, found to have fluid overload. Being diuresed and improving. Will continue to follow.
[2018-09-12] MEDS: ACETAMINOPHEN 325 MG TABLET (FP) PO PRN (21:49)
[2018-09-13 07:14] LABS: ANION GAP 6 MMOL/L (8-16); BLOOD UREA NITROGEN 42 mg/dL (7-18); CALCIUM 8.9 mg/dL (8.5-10.1); CHLORIDE 91 mmol/L (98-107); CO2 40 mmol/L (21-32); CREATININE 1.9 mg/dL (0.55-1.3); GLUCOSE,RANDOM 92 mg/dL (74-106); POTASSIUM 3.3 mmol/L (3.5-5.1); SODIUM 137 mmol/L (136-145)
[2018-09-13] MEDS: ASPIRIN COATED 81 MG TABLET.EC PO SCH (09:11)
[2018-09-13] MEDS: GABAPENTIN 100 MG CAPSULE (FP) PO SCH (09:11)
[2018-09-13] MEDS: FOLIC ACID 1 MG TABLET (FP) PO SCH (09:12)
[2018-09-13] MEDS: POTASSIUM CHLORIDE TABS 20 MEQ TABLET.ER (FP) PO SCH (09:12)
[2018-09-13] MEDS: CARVEDILOL 12.5 MG TABLET (FP) PO SCH ×2 (09:12→22:06)
[2018-09-13] MEDS: APIXABAN 5 MG TABLET PO SCH ×2 (09:12→22:06)
[2018-09-13] MEDS: BUDESONIDE/FORMETEROL FUMARATE 80/4.5 mcg INHALER IH SCH ×2 (09:13→22:06)
[2018-09-13] MEDS: FENOFIBRIC ACID 135 MG CAP PO SCH (09:13)
--- NOTE | 2018-09-13 09:30 | PN ---
Progress Note, Physician Chief Complaint: sob History of Present Illness: still sob to bathroom and back. tried to walk in [place] before--too winded, had to stop after short distance no cp no leg swelling no palpit no cigs - Current Medication List Current Medications: Active Medications Acetaminophen (Tylenol -) 650 mg PO Q6H PRN PRN Reason: FEVER Last Admin: 09/12/18 21:49 Dose: 650 mg Apixaban (Eliquis -) 5 mg PO BID [facility] Last Admin: 09/13/18 09:12 Dose: 5 mg Aspirin (Ecotrin -) 81 mg PO DAILY [facility] Last Admin: 09/13/18 09:11 Dose: 81 mg Budesonide/Formoterol Fumarate (Symbicort 80/4.5mcg -) 2 puff IH BID [facility] Last Admin: 09/13/18 09:13 Dose: 2 puff Carvedilol (Coreg -) 12.5 mg PO BID [facility] Last Admin: 09/13/18 09:12 Dose: 12.5 mg Fenofibric Acid (Trilipix -) 135 mg PO DAILY [facility] Last Admin: 09/13/18 09:13 Dose: 135 mg Folic Acid (Folic Acid -) 1 mg PO DAILY [facility] Last Admin: 09/13/18 09:12 Dose: 1 mg Furosemide (Lasix -) 40 mg PO BID@0600,1400 [facility] Gabapentin (Neurontin -) 100 mg PO DAILY [facility] Last Admin: 09/13/18 09:11 Dose: 100 mg Guaifenesin (Robitussin Dm -) 10 ml PO Q6H PRN PRN Reason: COUGH Last Admin: 09/09/18 04:01 Dose: 10 ml Potassium Chloride (K-Dur -) 40 meq PO DAILY [facility] Last Admin: 09/13/18 09:12 Dose: 40 meq - Objective Vital Signs: Vital Signs Temperature 97.3 F L 09/13/18 06:00 Pulse Rate 86 09/13/18 06:00 Respiratory Rate 18 09/13/18 06:00 Blood Pressure 102/70 09/13/18 06:00 O2 Sat by Pulse Oximetry (%) 100 09/12/18 21:00 Constitutional: Yes: No Distress, Calm Eyes: No: Sclera Icterus HENT: No: Nasal Congestion Cardiovascular: Yes: Regular Rate and Rhythm, JVD, S1, S2, Other (PMI non diplaced). No: Gallop, Murmur Respiratory: Yes: CTA Bilaterally. No: Accessory Muscle Use, Rales, Wheezes Gastrointestinal: Yes: Normal Bowel Sounds, Soft. No: Tenderness Musculoskeletal: Yes: Other (No kyphosis) Extremities: No: Cyanosis Edema: No Integumentary: No: Jaundice Neurological: Yes: Alert, Oriented (x3) Psychiatric: No: Agitated Labs: CBC, BMP 09/10/18 06:00 09/13/18 05:30 INR, PTT INR 1.74 (0.83-1.09) H 09/02/18 15:38 Assessment/Plan ECG:afib, rate 95, inferolat twi, no sig change prior echo in 10/15 Dr. Meyer: normal LV, no pericardial effusion (no other signif abnormality) echo 06/2018 nl LV function, mildly reduced RV function, borderline LA enlargement, mild MR, mild TR, RVSP nl, small pericardial effusion <1 cm, no echo indication of tamponade cxr: mild chf a/p: SOB, acute diastolic chf, hx of pericardial effusion, mesothelioma, asthma: -recent echos unremarkable -here with vol overload. no signs acs. -+JVD in office with wt trending up from 211 on 07/29/18 to 214 on 08/14, to 224 on 09/02. -cont lasix iv 40 bid. -09/05: still volume up, cr stable, will increase to lasix 80 iv bid. -09/06: cont iv lasix 80 bid, monitor daily wts, chem7. -09/07: wt not decreasing (223-224). renal fxn stable. lasix 80 mg IV BID, received metolazone 2.5 mg x 1 -09/08: wt 223->217, Cr stable, remains volume overloaded. metolazone 2.5 mg today prior to PM lasix dose, lasix 80 mg IV BID -09/09-: wt decreasing, Cr stable, still volume up. metolazone 5 mg prior to PM lasix, cont lasix 80 mg IV BID -09/11: cont iv lasix. may be approaching dry wt as bun/cr rising at wt loss slowing. if bun/cr cont to trend up tomorrow would change to po diuretics. -09/12: wt 212, now at prior office dry wt. and bun/creat rising today. however he remains with JVD and with NYHA III sob sx's which are worse than his baseline. to have outpt CMR and/or RHC to exclude pericardial constriction ( which could cause chronically high filling pressures and sob despite normovolemia). will stop lasix IV (s/p one dose this morning). will change from 40 IV BID to 40 po qd in AM tomorrow. rpt bmp in am -09/13: wt up 2 lbs today, bun/creat rising further. remains with sx's of CHF and JVD. suspect severe LV diastolic dysfunction vs restrictive CMP vs periardial restriction here (? mesothelioma metastatic to pericardium). no RFs for severe diast dysfunction (BP well controlled since dx > 10 yrs ago per pt, no known KIRILL). CT chest 07/18 no pericardial thickening noted. needs RHC +/- cardiac MRI and HF specialty eval. do not suspect he will tolerate PO diuresis at home long enough to complete this process as outpatient. pt agreeable to transfer to [facility]. will call today to discuss. -will give lasix 40 IV x 1 today--reassess creat tomorrow afib - continue home eliquis - HR good--continue carvedilol HTN: -bp controlled, running low normal 100s consistently -given aggressive diuresis, holding amlodipine and cont carvedilol for now -observe BP trend CKD: -creat rising now vs baseline. ? new baseline related to chf -monitor labs trend closely
[2018-09-13] MEDS ORDERED: FUROSEMIDE 40 MG TABLET (FP) PO SCH ×3 (10:00→18:00)
[2018-09-13] MEDS ORDERED: FUROSEMIDE 40 MG/4 ML INJECTABLE VIAL IVPUSH ONE (11:09)
[2018-09-13] MEDS ORDERED: FUROSEMIDE 40 MG/4 ML INJECTABLE VIAL ONE (13:19)
--- NOTE | 2018-09-13 18:05 | PN ---
Progress Note, Physician History of Present Illness: Continues to have SOB, intermittently at rest today. - Current Medication List Current Medications: Active Medications Acetaminophen (Tylenol -) 650 mg PO Q6H PRN PRN Reason: FEVER Last Admin: 09/12/18 21:49 Dose: 650 mg Apixaban (Eliquis -) 5 mg PO BID [facility] Last Admin: 09/13/18 09:12 Dose: 5 mg Aspirin (Ecotrin -) 81 mg PO DAILY [facility] Last Admin: 09/13/18 09:11 Dose: 81 mg Budesonide/Formoterol Fumarate (Symbicort 80/4.5mcg -) 2 puff IH BID [facility] Last Admin: 09/13/18 09:13 Dose: 2 puff Carvedilol (Coreg -) 12.5 mg PO BID [facility] Last Admin: 09/13/18 09:12 Dose: 12.5 mg Fenofibric Acid (Trilipix -) 135 mg PO DAILY [facility] Last Admin: 09/13/18 09:13 Dose: 135 mg Folic Acid (Folic Acid -) 1 mg PO DAILY [facility] Last Admin: 09/13/18 09:12 Dose: 1 mg Gabapentin (Neurontin -) 100 mg PO DAILY [facility] Last Admin: 09/13/18 09:11 Dose: 100 mg Guaifenesin (Robitussin Dm -) 10 ml PO Q6H PRN PRN Reason: COUGH Last Admin: 09/09/18 04:01 Dose: 10 ml Potassium Chloride (K-Dur -) 40 meq PO DAILY [facility] Last Admin: 09/13/18 09:12 Dose: 40 meq - Objective Vital Signs: Vital Signs Temperature 97.8 F 09/13/18 14:00 Pulse Rate 100 H 09/13/18 14:00 Respiratory Rate 20 09/13/18 10:00 Blood Pressure 134/75 09/13/18 14:00 O2 Sat by Pulse Oximetry (%) 99 09/13/18 09:00 Constitutional: Yes: No Distress Eyes: Yes: Conjunctiva Clear Cardiovascular: Yes: Regular Rate and Rhythm Respiratory: Yes: Regular, CTA Bilaterally Gastrointestinal: Yes: Distention (non tender) Edema: LLE: 1+, RLE: 1+ Labs: CBC, BMP 09/10/18 06:00 09/13/18 05:30 INR, PTT INR 1.74 (0.83-1.09) H 09/02/18 15:38 Assessment/Plan 68M with COPD, CHF, CKD, AF on Eliquis, mesothelioma dx 2 years ago, s/p carbo/ alimta with eventual POD, now on nivolumab since 12/2017 (c11 on 07/06/18), recent hx of pericardial effusion presented with SOB x 1 week and LE edema, found to have fluid overload. Being diuresed with slow rise in creatinine. [facility] with [facility]
--- NOTE | 2018-09-13 19:40 | PN ---
Progress Note, Physician History of Present Illness: No new complaints Pt still SOB - Current Medication List Current Medications: Active Medications Acetaminophen (Tylenol -) 650 mg PO Q6H PRN PRN Reason: FEVER Last Admin: 09/12/18 21:49 Dose: 650 mg Apixaban (Eliquis -) 5 mg PO BID [facility] Last Admin: 09/13/18 09:12 Dose: 5 mg Aspirin (Ecotrin -) 81 mg PO DAILY [facility] Last Admin: 09/13/18 09:11 Dose: 81 mg Budesonide/Formoterol Fumarate (Symbicort 80/4.5mcg -) 2 puff IH BID [facility] Last Admin: 09/13/18 09:13 Dose: 2 puff Carvedilol (Coreg -) 12.5 mg PO BID [facility] Last Admin: 09/13/18 09:12 Dose: 12.5 mg Fenofibric Acid (Trilipix -) 135 mg PO DAILY [facility] Last Admin: 09/13/18 09:13 Dose: 135 mg Folic Acid (Folic Acid -) 1 mg PO DAILY [facility] Last Admin: 09/13/18 09:12 Dose: 1 mg Gabapentin (Neurontin -) 100 mg PO DAILY [facility] Last Admin: 09/13/18 09:11 Dose: 100 mg Guaifenesin (Robitussin Dm -) 10 ml PO Q6H PRN PRN Reason: COUGH Last Admin: 09/09/18 04:01 Dose: 10 ml Potassium Chloride (K-Dur -) 40 meq PO DAILY [facility] Last Admin: 09/13/18 09:12 Dose: 40 meq - Objective Vital Signs: Vital Signs Temperature 97.8 F 09/13/18 14:00 Pulse Rate 100 H 09/13/18 14:00 Respiratory Rate 20 09/13/18 10:00 Blood Pressure 134/75 09/13/18 14:00 O2 Sat by Pulse Oximetry (%) 99 09/13/18 09:00 HENT: Yes: WNL Neck: Yes: WNL Cardiovascular: Yes: WNL, Regular Rate and Rhythm Respiratory: Yes: Diminished Gastrointestinal: Yes: WNL, Normal Bowel Sounds, Soft Edema: No Labs: CBC, BMP 09/10/18 06:00 09/13/18 05:30 INR, PTT INR 1.74 (0.83-1.09) H 09/02/18 15:38 Problem List - Problems (1) Acute diastolic heart failure Assessment/Plan: Cont diuresis w/ IV lasix As per cardio Monitor electrolytes Code(s): I50.31 - ACUTE DIASTOLIC (CONGESTIVE) HEART FAILURE (2) HTN (hypertension) Assessment/Plan: BP stable Cont antihypertensives Code(s): I10 - ESSENTIAL (PRIMARY) HYPERTENSION (3) Afib Assessment/Plan: Heart rate stable Cont eliquis Code(s): I48.91 - UNSPECIFIED ATRIAL FIBRILLATION (4) COPD (chronic obstructive pulmonary disease) Assessment/Plan: Cont inhalers Code(s): J44.9 - CHRONIC OBSTRUCTIVE PULMONARY DISEASE, UNSPECIFIED (5) Mesothelioma (pleural) Code(s): C45.0 - MESOTHELIOMA OF PLEURA
[2018-09-14 07:45] LABS: ANION GAP 6 MMOL/L (8-16); BLOOD UREA NITROGEN 43 mg/dL (7-18); CHLORIDE 94 mmol/L (98-107); CO2 37 mmol/L (21-32); CREATININE 1.6 mg/dL (0.55-1.3); GLUCOSE,RANDOM 90 mg/dL (74-106); POTASSIUM 3.3 mmol/L (3.5-5.1); SODIUM 138 mmol/L (136-145)
--- NOTE | 2018-09-14 10:31 | PN ---
Progress Note, Physician Chief Complaint: sob History of Present Illness: sob same as yesterday--with little walking/activity. no cp. no palpit no syncope nop cigs - Current Medication List Current Medications: Active Medications Acetaminophen (Tylenol -) 650 mg PO Q6H PRN PRN Reason: FEVER Last Admin: 09/12/18 21:49 Dose: 650 mg Apixaban (Eliquis -) 5 mg PO BID [facility] Last Admin: 09/13/18 22:06 Dose: 5 mg Aspirin (Ecotrin -) 81 mg PO DAILY [facility] Last Admin: 09/13/18 09:11 Dose: 81 mg Budesonide/Formoterol Fumarate (Symbicort 80/4.5mcg -) 2 puff IH BID [facility] Last Admin: 09/13/18 22:06 Dose: 2 puff Carvedilol (Coreg -) 12.5 mg PO BID [facility] Last Admin: 09/13/18 22:06 Dose: 12.5 mg Fenofibric Acid (Trilipix -) 135 mg PO DAILY [facility] Last Admin: 09/13/18 09:13 Dose: 135 mg Folic Acid (Folic Acid -) 1 mg PO DAILY [facility] Last Admin: 09/13/18 09:12 Dose: 1 mg Furosemide (Lasix Injection -) 40 mg IVPUSH BID@0600,1400 [facility] Gabapentin (Neurontin -) 100 mg PO DAILY [facility] Last Admin: 09/13/18 09:11 Dose: 100 mg Guaifenesin (Robitussin Dm -) 10 ml PO Q6H PRN PRN Reason: COUGH Last Admin: 09/09/18 04:01 Dose: 10 ml Potassium Chloride (K-Dur -) 40 meq PO DAILY [facility] Last Admin: 09/13/18 09:12 Dose: 40 meq - Objective Vital Signs: Vital Signs Temperature 98.9 F 09/14/18 03:00 Pulse Rate 91 H 09/14/18 07:00 Respiratory Rate 22 H 09/14/18 07:00 Blood Pressure 120/47 L 09/14/18 07:00 O2 Sat by Pulse Oximetry (%) 94 L 09/13/18 21:00 Constitutional: Yes: No Distress, Calm Eyes: No: Sclera Icterus HENT: No: Nasal Congestion Cardiovascular: Yes: Regular Rate and Rhythm, S1, S2, Other (PMI non diplaced). No: Gallop, Murmur Respiratory: Yes: CTA Bilaterally, Diminished (R mid/lower). No: Accessory Muscle Use, Rales, Wheezes Gastrointestinal: Yes: Normal Bowel Sounds, Soft. No: Tenderness Musculoskeletal: Yes: Other (No kyphosis) Extremities: No: Cyanosis Edema: No Integumentary: No: Jaundice Neurological: Yes: Alert, Oriented (x3) Psychiatric: No: Agitated Labs: CBC, BMP 09/10/18 06:00 09/14/18 06:35 INR, PTT INR 1.74 (0.83-1.09) H 09/02/18 15:38 Assessment/Plan ECG:afib, rate 95, inferolat twi, no sig change prior echo in 10/15 Dr. Meyer: normal LV, no pericardial effusion (no other signif abnormality) echo 06/2018 nl LV function, mildly reduced RV function, borderline LA enlargement, mild MR, mild TR, RVSP nl, small pericardial effusion <1 cm, no echo indication of tamponade cxr: mild chf tele: AF, rates controlled a/p: SOB, acute diastolic chf, hx of pericardial effusion, mesothelioma, asthma: -recent echos unremarkable -here with vol overload. no signs acs. -+JVD in office with wt trending up from 211 on 07/29/18 to 214 on 08/14, to 224 on 09/02. -cont lasix iv 40 bid. -09/05: still volume up, cr stable, will increase to lasix 80 iv bid. -09/06: cont iv lasix 80 bid, monitor daily wts, chem7. -09/07: wt not decreasing (223-224). renal fxn stable. lasix 80 mg IV BID, received metolazone 2.5 mg x 1 -09/08: wt 223->217, Cr stable, remains volume overloaded. metolazone 2.5 mg today prior to PM lasix dose, lasix 80 mg IV BID -09/09-: wt decreasing, Cr stable, still volume up. metolazone 5 mg prior to PM lasix, cont lasix 80 mg IV BID -09/11: cont iv lasix. may be approaching dry wt as bun/cr rising at wt loss slowing. if bun/cr cont to trend up tomorrow would change to po diuretics. -09/12: wt 212, now at prior office dry wt. and bun/creat rising today. however he remains with JVD and with NYHA III sob sx's which are worse than his baseline. to have outpt CMR and/or RHC to exclude pericardial constriction ( which could cause chronically high filling pressures and sob despite normovolemia). will stop lasix IV (s/p one dose this morning). will change from 40 IV BID to 40 po qd in AM tomorrow. rpt bmp in am -09/13: wt up 2 lbs today, bun/creat rising further. remains with sx's of CHF and JVD. suspect severe LV diastolic dysfunction vs restrictive CMP vs periardial restriction here (? mesothelioma metastatic to pericardium). no RFs for severe diast dysfunction (BP well controlled since dx > 10 yrs ago per pt, no known KIRILL). CT chest 07/18 no pericardial thickening noted. needs RHC +/- cardiac MRI and HF specialty eval. do not suspect he will tolerate PO diuresis at home long enough to complete this process as outpatient. pt agreeable to transfer to [facility] HF team. will call today to discuss. gave lasix 40 IV x 1. -09/14: pt accepted for transfer to CHF service (Dr. Felipe Harmon accepting). renal fxn improved but wt up further after lasix 40 IV x 1 yesterday. resume lasix 40 IV bid today, monitor renal fxn daily. awaiting bed at [facility] afib - continue home eliquis - HR good--continue carvedilol HTN: -bp controlled, running low normal 100s consistently -given aggressive diuresis, holding amlodipine and cont carvedilol for now -observe BP trend CKD: -creat rising now vs baseline. ? new baseline related to chf -monitor labs trend closely
[2018-09-14] MEDS: ASPIRIN COATED 81 MG TABLET.EC PO SCH (10:47)
[2018-09-14] MEDS: APIXABAN 5 MG TABLET PO SCH (10:47)
[2018-09-14] MEDS: POTASSIUM CHLORIDE TABS 20 MEQ TABLET.ER (FP) PO SCH (10:47)
[2018-09-14] MEDS: GABAPENTIN 100 MG CAPSULE (FP) PO SCH (10:48)
[2018-09-14] MEDS: FENOFIBRIC ACID 135 MG CAP PO SCH (10:49)
[2018-09-14] MEDS: FOLIC ACID 1 MG TABLET (FP) PO SCH (10:50)
[2018-09-14] MEDS: BUDESONIDE/FORMETEROL FUMARATE 80/4.5 mcg INHALER IH SCH (10:51)
[2018-09-14] MEDS: CARVEDILOL 12.5 MG TABLET (FP) PO SCH (11:04)
[2018-09-14] MEDS: FUROSEMIDE 40 MG/4 ML INJECTABLE VIAL IVPUSH SCH ×2 (11:54→17:01)
[2018-09-14] MEDS: ACETAMINOPHEN 325 MG TABLET (FP) PO PRN (15:27)
[2018-09-14 17:46] VITALS: BP 108/65; PULSE 98; TEMP 97.9
--- NOTE | 2018-09-14 18:49 | PN ---
Progress Note, Physician - Current Medication List Current Medications: Active Medications Acetaminophen (Tylenol -) 650 mg PO Q6H PRN PRN Reason: FEVER Last Admin: 09/14/18 15:27 Dose: 650 mg Apixaban (Eliquis -) 5 mg PO BID [facility] Last Admin: 09/14/18 10:47 Dose: 5 mg Aspirin (Ecotrin -) 81 mg PO DAILY [facility] Last Admin: 09/14/18 10:47 Dose: 81 mg Budesonide/Formoterol Fumarate (Symbicort 80/4.5mcg -) 2 puff IH BID [facility] Last Admin: 09/14/18 10:51 Dose: 2 puff Carvedilol (Coreg -) 12.5 mg PO BID [facility] Last Admin: 09/14/18 11:04 Dose: 12.5 mg Fenofibric Acid (Trilipix -) 135 mg PO DAILY [facility] Last Admin: 09/14/18 10:49 Dose: 135 mg Folic Acid (Folic Acid -) 1 mg PO DAILY [facility] Last Admin: 09/14/18 10:50 Dose: 1 mg Furosemide (Lasix Injection -) 40 mg IVPUSH BID@0600,1400 [facility] Last Admin: 09/14/18 17:01 Dose: 40 mg Gabapentin (Neurontin -) 100 mg PO DAILY [facility] Last Admin: 09/14/18 10:48 Dose: 100 mg Guaifenesin (Robitussin Dm -) 10 ml PO Q6H PRN PRN Reason: COUGH Last Admin: 09/09/18 04:01 Dose: 10 ml Potassium Chloride (K-Dur -) 40 meq PO DAILY [facility] Last Admin: 09/14/18 10:47 Dose: 40 meq - Objective Vital Signs: Vital Signs Temperature 97.9 F 09/14/18 17:45 Pulse Rate 98 H 09/14/18 17:45 Respiratory Rate 20 09/14/18 17:45 Blood Pressure 108/65 09/14/18 17:45 O2 Sat by Pulse Oximetry (%) 95 09/14/18 09:00 Constitutional: Yes: No Distress HENT: Yes: Atraumatic Neck: Yes: Supple Cardiovascular: Yes: Regular Rate and Rhythm Respiratory: Yes: CTA Bilaterally Gastrointestinal: Yes: Normal Bowel Sounds Edema: Yes Edema: LLE: Trace, RLE: Trace Peripheral Pulses WNL: Yes Neurological: Yes: Alert, Oriented Labs: CBC, BMP 09/10/18 06:00 09/14/18 06:35 INR, PTT INR 1.74 (0.83-1.09) H 09/02/18 15:38 Problem List - Problems (1) Asthma Assessment/Plan: prn nebs Code(s): J45.909 - UNSPECIFIED ASTHMA, UNCOMPLICATED (2) COPD exacerbation Assessment/Plan: on inhaler can have prn nebs Code(s): J44.1 - CHRONIC OBSTRUCTIVE PULMONARY DISEASE W (ACUTE) EXACERBATION (3) HTN (hypertension) Assessment/Plan: continue homemeds Code(s): I10 - ESSENTIAL (PRIMARY) HYPERTENSION (4) Mesothelioma (pleural) Assessment/Plan: s/p chemo and RT Code(s): C45.0 - MESOTHELIOMA OF PLEURA (5) Shortness of breath Code(s): R06.02 - SHORTNESS OF BREATH (6) CHF exacerbation Assessment/Plan: on lasix 40 mg iv bid Code(s): I50.9 - HEART FAILURE, UNSPECIFIED Qualifiers: Heart failure type: unspecified Qualified Code(s): I50.9 - Heart failure, unspecified Assessment/Plan d/w dr chan for transfer to [facility]
--- NOTE | 2018-09-14 22:13 | DS ---
Physical Examination Vital Signs: Vital Signs Temperature 97.9 F 09/14/18 17:45 Pulse Rate 98 H 09/14/18 17:45 Respiratory Rate 20 09/14/18 17:45 Blood Pressure 108/65 09/14/18 17:45 O2 Sat by Pulse Oximetry (%) 95 09/14/18 09:00 Constitutional: Yes: No Distress HENT: Yes: Atraumatic Neck: Yes: Supple Cardiovascular: Yes: Regular Rate and Rhythm Respiratory: Yes: CTA Bilaterally Gastrointestinal: Yes: Normal Bowel Sounds Extremities: Yes: WNL Edema: Yes Edema: LLE: Trace, RLE: Trace Neurological: Yes: Alert, Oriented Labs: CBC, BMP 09/10/18 06:00 09/14/18 06:35 Discharge Summary Reason For Visit: ACUTE ON CHRONIC CHF Condition: Good - Instructions Referrals: Gael Maddox MD [Primary Care Provider] - Disposition: TRANSFER ACUTE CARE/OTHER HOSP - Home Medications Comprehensive Discharge Medication List: Ambulatory Orders Amlodipine Besylate [Norvasc -] 5 mg PO DAILY 08/11/17 Aspirin [Ecotrin] 81 mg PO DAILY 08/11/17 Carvedilol 12.5 mg PO DAILY 08/11/17 Fenofibrate [Lipofen] 160 mg PO DAILY 08/11/17 Folic Acid 1 mg PO DAILY 08/11/17 Omeprazole Magnesium [Prilosec Otc] 20 mg PO BID 08/11/17 Budesonide/Formeterol Fumarate [SYMBICORT 80/4.5mcg -] 2 inh IH DAILY 07/12/18 Ipratropium/Albuterol Sulfate [Combivent Respimat 20-100 Mcg] 4 gm IH BID Lactobacillus Acidophilus [Bacid -] 1 each PO DAILY 07/13/18 Albuterol 2.5/Ipratropium 0.5 [Duoneb -] 1 neb IH QID PRN #3 vial.neb. 07/20/18 Apixaban [Eliquis] 5 mg PO BID #60 tablet 07/20/18 Nebulizer [Compact Ultrasonic Nebulizer] 1 each MC DAILY PRN #1 each 07/20/18 Lactobacillus Acidophilus [Probiotic] 1 each PO DAILY 09/02/18 Potassium Chloride 20 meq PO DAILY 09/02/18 Furosemide [Lasix -] 40 mg PO DAILY #30 tablet 09/12/18 Gabapentin [Neurontin -] 100 mg PO DAILY #30 capsule 09/12/18 dc
== END 2018-09-14 20:30 | disposition short-term general hospital (02) | DRG 291 ==
LOC: JER 14:45 → JERBED 17:37 → J4W 09-03 05:22
PROVIDERS: ADMIT Internal Medicine; ATTEND Internal Medicine
DX: I13.0 Hypertensive heart and chronic kidney disease with heart failure and stage 1 through stage 4 chronic kidney disease, or unspecified chronic kidney disease (principal); I50.33 Acute on chronic diastolic (congestive) heart failure; J44.1 Chronic obstructive pulmonary disease with (acute) exacerbation; C45.0 Mesothelioma of pleura; E78.5 Hyperlipidemia, unspecified; N18.9 Chronic kidney disease, unspecified; J45.909 Unspecified asthma, uncomplicated; I48.91 Unspecified atrial fibrillation; E87.70 Fluid overload, unspecified; E87.5 Hyperkalemia; D64.9 Anemia, unspecified
CPT/HCPCS: 36415; 71045-TC-FY; 74176-TC; 80048; 80053; 81003; 82550; 83735; 83880; 84484; 85025; 85610; 93005; 93010; 94761; 99283-25

== ENCOUNTER 2018-11-16 07:26 | Day surgery (SDC) | payer MEDICARE, OTHER ==
[2018-11-16] MEDS ORDERED: SODIUM CHLORIDE 250 ML IV ONE ×2 (09:30→11:30)
[2018-11-16] MEDS ORDERED: DEXAMETHASONE SODIUM PHOSPHATE 8 MG, ONDANSETRON INJECTION 8 MG in SODIUM CHLORIDE 100 ML IVPB ONE (10:00)
[2018-11-16 10:12] LABS: ALBUMIN 3.2 g/dl (3.4-5.0); BILIRUBIN,DIRECT 0.6 mg/dL (0.0-0.2); BILIRUBIN,TOTAL 0.9 mg/dL (0.2-1); CALCIUM 9.2 mg/dL (8.5-10.1); CREATININE 3.2 mg/dL (0.55-1.3); MAGNESIUM 2.6 mg/dL (1.8-2.4); POTASSIUM 4.5 mmol/L (3.5-5.1); TOT PROT 6.9 g/dl (6.4-8.2)
[2018-11-16] MEDS ORDERED: NIVOLUMAB 200 MG, NIVOLUMAB 40 MG in SODIUM CHLORIDE 100 ML IVPB ONE (10:30)
[2018-11-16] MEDS ORDERED: ALBUTEROL SO4 2.5/IPRATROPIUM 0.5 INH SOL 3 ML VIAL.NEB. NEB ONE ×2 (12:23→13:45)
[2018-11-16 17:27] VITALS: BP 101/74; PULSE 77
[2018-11-16] MEDS ORDERED: PORTA CATH FLUSH 10 ML IVPUSH ONE (17:27)
[2018-11-16 17:29] VITALS: TEMP 98
== END 2018-11-16 14:30 | disposition home or self-care (01) ==
LOC: JONCCHEMO 07:26 → J7W 10:41 → JONCCHEMO 14:30
PROVIDERS: ATTEND Internal Medicine Hematology & Oncology
DX: Z51.11 Encounter for antineoplastic chemotherapy (principal); C45.0 Mesothelioma of pleura
CPT/HCPCS: 36415; 80048; 80053; 80076; 83735; 84439; 84443; 94640; 96367; 96375; 96413; J2405; J9299

== ENCOUNTER 2018-11-30 07:22 | Day surgery (SDC) | payer MEDICARE, OTHER | END 2018-11-30 15:35 | disposition home or self-care (01) | LOC: JONCCHEMO 07:22 → J7W 12:45 → JONCCHEMO 15:35 ==

== ENCOUNTER 2018-12-03 07:21 | Day surgery (SDC) | payer MEDICARE, OTHER ==
[2018-12-03] MEDS ORDERED: SODIUM CHLORIDE 500 ML IV ONE (08:00)
[2018-12-03 11:16] LABS: BASO % 0.3 % (0-2.0); HEMATOCRIT 40.2 % (35.4-49); HEMOGLOBIN 12.6 GM/dL (11.7-16.9); LYMPH % 4.6 % (8-40); MCH 24.8 pg (25.7-33.7); MCHC 31.4 g/dl (32.0-35.9); MEAN PLT VOLUME 9.5 fl (7.5-11.1); NEUT % 91.1 % (42.8-82.8); PLATELET COUNT 184 K/MM3 (134-434); RDW 17.2 % (11.9-15.9); WHITE BLOOD COUNT 12.3 K/mm3 (4.0-10.0)
[2018-12-03 11:50] LABS: ALBUMIN 3.6 g/dl (3.4-5.0); BILIRUBIN,DIRECT 0.7 mg/dL (0.0-0.2); BILIRUBIN,TOTAL 1.1 mg/dL (0.2-1); CALCIUM 9.3 mg/dL (8.5-10.1); MAGNESIUM 3.1 mg/dL (1.8-2.4); POTASSIUM 5.2 mmol/L (3.5-5.1); TOT PROT 7.4 g/dl (6.4-8.2)
[2018-12-03 11:55] LABS: ANISOCYTOSIS 0; MACROCYTOSIS 0; PLATELET ESTIMATE NORMAL
[2018-12-03 13:26] VITALS: BP 109/72; PULSE 74; TEMP 97.6
[2018-12-03] MEDS ORDERED: SODIUM POLYSTYRENE SULFONATE 15 GM/60 ML BOTTLE PO ONE (14:45)
[2018-12-03 15:00] LABS: CALCIUM 8.8 mg/dL (8.5-10.1); POTASSIUM 4.5 mmol/L (3.5-5.1)
== END 2018-12-03 18:00 | disposition home or self-care (01) ==
LOC: JONCNONCHE 07:21 → J7W 10:20 → JONCNONCHE 18:00
PROVIDERS: ATTEND Internal Medicine Hematology & Oncology
PROC: 3E043GC Introduction of Other Therapeutic Substance into Central Vein, Percutaneous Approach (ICD-10-PCS; principal; 2018-12-03)
DX: C45.0 Mesothelioma of pleura (principal)
CPT/HCPCS: 36415; 80048; 80076; 83735; 85025; 96360; 96361; 96365

== ENCOUNTER 2018-12-07 07:18 | Day surgery (SDC) | payer MEDICARE, OTHER ==
[2018-12-07] MEDS ORDERED: SODIUM CHLORIDE 250 ML IV ONE ×2 (09:00→11:00)
[2018-12-07] MEDS ORDERED: DEXAMETHASONE SODIUM PHOSPHATE 8 MG, ONDANSETRON INJECTION 8 MG in SODIUM CHLORIDE 100 ML IVPB ONE (09:30)
[2018-12-07] MEDS ORDERED: NIVOLUMAB 240 MG in SODIUM CHLORIDE 100 ML IVPB ONE (10:00)
[2018-12-07] MEDS ORDERED: SODIUM CHLORIDE 0.45% 750 ML IV ONE (10:00)
[2018-12-07 11:06] LABS: ALBUMIN 3.3 g/dl (3.4-5.0); BILIRUBIN,DIRECT 0.7 mg/dL (0.0-0.2); BILIRUBIN,TOTAL 1.2 mg/dL (0.2-1); CALCIUM 8.7 mg/dL (8.5-10.1); CREATININE 2.7 mg/dL (0.55-1.3); MAGNESIUM 2.5 mg/dL (1.8-2.4); POTASSIUM 4.4 mmol/L (3.5-5.1); TOT PROT 6.8 g/dl (6.4-8.2)
[2018-12-07 11:54] LABS: BASO % 0.2 % (0-2.0); EOS % 0.1 % (0-4.5); HEMATOCRIT 38.4 % (35.4-49); HEMOGLOBIN 12.3 GM/dL (11.7-16.9); LYMPH % 6.2 % (8-40); MCHC 32.1 g/dl (32.0-35.9); MEAN CELL VOLUME 77.9 fl (80-96); MEAN PLT VOLUME 9.5 fl (7.5-11.1); MONO % 3.3 % (3.8-10.2); NEUT % 90.2 % (42.8-82.8); PLATELET COUNT 225 K/MM3 (134-434); RBC 4.93 M/mm3 (4.00-5.60); RDW 17.6 % (11.9-15.9); WHITE BLOOD COUNT 12.7 K/mm3 (4.0-10.0)
[2018-12-07 14:56] VITALS: TEMP 98
[2018-12-07] MEDS ORDERED: PORTA CATH FLUSH 10 ML IVPUSH ONE (14:56)
[2018-12-07 14:57] VITALS: BP 111/87; PULSE 77
== END 2018-12-07 13:10 | disposition home or self-care (01) ==
LOC: JONCCHEMO 07:18 → J7W 09:28 → JONCCHEMO 13:10
PROVIDERS: ATTEND Internal Medicine Hematology & Oncology
PROC: 3E0437Z Introduction of Electrolytic and Water Balance Substance into Central Vein, Percutaneous Approach (ICD-10-PCS; principal; 2018-12-07)
DX: C45.0 Mesothelioma of pleura (principal); N28.9 Disorder of kidney and ureter, unspecified; Z76.89 Persons encountering health services in other specified circumstances
CPT/HCPCS: 36415; 80048; 80076; 82150; 83690; 83735; 84439; 84443; 85025; 96360; 96361

== ENCOUNTER 2018-12-10 05:48 | Day surgery (SDC) | payer MEDICARE, OTHER ==
[2018-12-10] MEDS ORDERED: SODIUM CHLORIDE 0.45% 1,000 ML IV ONE (09:15)
[2018-12-10 14:39] LABS: ALBUMIN 3.3 g/dl (3.4-5.0); BLOOD UREA NITROGEN 89.6 mg/dL (7-18); CALCIUM 8.9 mg/dL (8.5-10.1); CREATININE 2.8 mg/dL (0.55-1.3); MAGNESIUM 2.7 mg/dL (1.8-2.4); POTASSIUM 4.2 mmol/L (3.5-5.1)
[2018-12-10 14:46] LABS: TOT PROT 6.4 g/dl (6.4-8.2)
[2018-12-10 16:07] VITALS: BP 120/83; PULSE 75; TEMP 97.9
[2018-12-10] MEDS ORDERED: PORTA CATH FLUSH 10 ML IVPUSH ONE (16:07)
== END 2018-12-10 13:15 | disposition home or self-care (01) ==
LOC: JONCNONCHE 05:48 → J7W 08:24 → JONCNONCHE 13:15
PROVIDERS: ATTEND Internal Medicine Hematology & Oncology
PROC: 3E0437Z Introduction of Electrolytic and Water Balance Substance into Central Vein, Percutaneous Approach (ICD-10-PCS; principal; 2018-12-10)
DX: C45.0 Mesothelioma of pleura (principal); Z76.89 Persons encountering health services in other specified circumstances
CPT/HCPCS: 36415; 80053; 83735; 96365; 96366

== ENCOUNTER 2018-12-14 06:28 | Day surgery (SDC) | payer MEDICARE, OTHER ==
[2018-12-14] MEDS ORDERED: SODIUM CHLORIDE 250 ML IV ONE ×2 (09:00→11:00)
[2018-12-14 09:15] LABS: BASO % 0.2 % (0-2.0); HEMATOCRIT 37.3 % (35.4-49); HEMOGLOBIN 12.1 GM/dL (11.7-16.9); LYMPH % 5.9 % (8-40); MCH 25.2 pg (25.7-33.7); MCHC 32.5 g/dl (32.0-35.9); MEAN CELL VOLUME 77.7 fl (80-96); MEAN PLT VOLUME 8.7 fl (7.5-11.1); MONO % 2.1 % (3.8-10.2); NEUT % 91.8 % (42.8-82.8); RDW 19.2 % (11.9-15.9); WHITE BLOOD COUNT 8.4 K/mm3 (4.0-10.0)
[2018-12-14] MEDS ORDERED: DEXAMETHASONE SODIUM PHOSPHATE 8 MG, ONDANSETRON INJECTION 8 MG in SODIUM CHLORIDE 100 ML IVPB ONE (09:30)
[2018-12-14 09:39] LABS: PLATELET COUNT 209 K/MM3 (134-434)
[2018-12-14 09:42] LABS: ALBUMIN 3.2 g/dl (3.4-5.0); BILIRUBIN,DIRECT 0.6 mg/dL (0.0-0.2); BILIRUBIN,TOTAL 0.9 mg/dL (0.2-1); BLOOD UREA NITROGEN 86.1 mg/dL (7-18); CALCIUM 8.9 mg/dL (8.5-10.1); MAGNESIUM 2.7 mg/dL (1.8-2.4); POTASSIUM 5.5 mmol/L (3.5-5.1); TOT PROT 6.6 g/dl (6.4-8.2)
[2018-12-14] MEDS ORDERED: NIVOLUMAB 200 MG, NIVOLUMAB 40 MG in SODIUM CHLORIDE 100 ML IVPB ONE (10:00)
[2018-12-14] MEDS ORDERED: SODIUM POLYSTYRENE SULFONATE 15 GM/60 ML BOTTLE PO ONE (11:15)
[2018-12-14] MEDS ORDERED: SODIUM CHLORIDE 500 ML IV ONE (12:30)
[2018-12-14 13:04] LABS: ANISOCYTOSIS 2+; MACROCYTOSIS 0; OVALOCYTE 2+; PLATELET ESTIMATE NORMAL; TEAR DROP CELLS 1+
[2018-12-14] MEDS ORDERED: PORTA CATH FLUSH 10 ML IVPUSH ONE (18:32)
[2018-12-14 18:35] VITALS: BP 113/77; PULSE 68; TEMP 97.6
== END 2018-12-14 13:15 | disposition home or self-care (01) ==
LOC: JONCCHEMO 06:28 → J7W 10:54 → JONCCHEMO 13:15
PROVIDERS: ATTEND Internal Medicine Hematology & Oncology
DX: Z53.8 Procedure and treatment not carried out for other reasons (principal)
CPT/HCPCS: 36415; 80048; 80076; 83735; 85025; 96361

== ENCOUNTER → 2018-12-21 | Day surgery (SDC) | payer MEDICARE, OTHER | LOC: JONCCHEMO 07:09 ==

== ENCOUNTER 2018-12-28 06:37 | Day surgery (SDC) | payer MEDICARE, OTHER ==
[2018-12-28] MEDS ORDERED: DEXAMETHASONE SODIUM PHOSPHATE 20 MG in SODIUM CHLORIDE 50 ML IVPB ONE (09:00)
[2018-12-28] MEDS ORDERED: PALONOSETRON HCL 0.25 MG/5 ML VIAL IVPUSH ONE (09:00)
[2018-12-28 09:18] LABS: BASO % 0.4 % (0-2.0); EOS % 0.1 % (0-4.5); HEMATOCRIT 34.6 % (35.4-49); HEMOGLOBIN 11.3 GM/dL (11.7-16.9); LYMPH % 6.8 % (8-40); MCH 25.7 pg (25.7-33.7); MCHC 32.6 g/dl (32.0-35.9); MEAN CELL VOLUME 79.1 fl (80-96); MEAN PLT VOLUME 8.2 fl (7.5-11.1); MONO % 2.9 % (3.8-10.2); NEUT % 89.8 % (42.8-82.8); PLATELET COUNT 247 K/MM3 (134-434); RBC 4.37 M/mm3 (4.00-5.60); WHITE BLOOD COUNT 7.7 K/mm3 (4.0-10.0)
[2018-12-28] MEDS ORDERED: SODIUM CHLORIDE IV ONE (09:30)
[2018-12-28] MEDS ORDERED: GEMCITABINE HCL IV ONE (09:30)
[2018-12-28 09:59] LABS: ALBUMIN 2.9 g/dl (3.4-5.0); BILIRUBIN,DIRECT 0.8 mg/dL (0.0-0.2); BLOOD UREA NITROGEN 55.9 mg/dL (7-18); CALCIUM 8.9 mg/dL (8.5-10.1); CREATININE 2.1 mg/dL (0.55-1.3); MAGNESIUM 2.5 mg/dL (1.8-2.4); TOT PROT 5.9 g/dl (6.4-8.2)
[2018-12-28] MEDS ORDERED: SODIUM CHLORIDE 250 ML IV ONE (10:00)
[2018-12-28 10:47] LABS: ANISOCYTOSIS 2+; MACROCYTOSIS 0; PLATELET ESTIMATE NORMAL; TEAR DROP CELLS 2+
[2018-12-28] MEDS ORDERED: FUROSEMIDE 40 MG/4 ML INJECTABLE VIAL IVPB ONE (11:15)
[2018-12-28 16:32] VITALS: TEMP 97.6
[2018-12-28 16:39] VITALS: BP 110/80; PULSE 75
[2018-12-28] MEDS ORDERED: PORTA CATH FLUSH 10 ML IVPUSH ONE (16:39)
== END 2018-12-28 15:30 | disposition home or self-care (01) ==
LOC: JONCCHEMO 06:37 → J7W 11:16 → JONCCHEMO 15:30
PROVIDERS: ATTEND Internal Medicine Hematology & Oncology
DX: Z51.11 Encounter for antineoplastic chemotherapy (principal); C45.0 Mesothelioma of pleura
CPT/HCPCS: 36415; 80048; 80076; 82150; 83690; 83735; 84443; 85025; 96361; 96375; 96413; J2469

== ENCOUNTER 2019-01-04 06:43 | Day surgery (SDC) | payer MEDICARE, OTHER ==
[2019-01-04] MEDS ORDERED: DEXAMETHASONE SODIUM PHOSPHATE 20 MG in SODIUM CHLORIDE 50 ML IVPB ONE (10:00)
[2019-01-04] MEDS ORDERED: PALONOSETRON HCL 0.25 MG/5 ML VIAL IVPUSH ONE (10:00)
[2019-01-04] MEDS ORDERED: SODIUM CHLORIDE IV ONE (10:30)
[2019-01-04] MEDS ORDERED: GEMCITABINE HCL IV ONE (10:30)
[2019-01-04] MEDS ORDERED: SODIUM CHLORIDE 250 ML IV ONE (11:00)
[2019-01-04 12:12] LABS: BASO % 0.2 % (0-2.0); EOS % 0.2 % (0-4.5); HEMATOCRIT 29.8 % (35.4-49); HEMOGLOBIN 9.7 GM/dL (11.7-16.9); LYMPH % 11.5 % (8-40); MCH 26.4 pg (25.7-33.7); MCHC 32.6 g/dl (32.0-35.9); MEAN CELL VOLUME 80.9 fl (80-96); MEAN PLT VOLUME 7.5 fl (7.5-11.1); MONO % 8.2 % (3.8-10.2); NEUT % 79.9 % (42.8-82.8); PLATELET COUNT 157 K/MM3 (134-434); RBC 3.68 M/mm3 (4.00-5.60); RDW 24.9 % (11.9-15.9); WHITE BLOOD COUNT 4.5 K/mm3 (4.0-10.0)
[2019-01-04 12:25] LABS: ALBUMIN 2.5 g/dl (3.4-5.0); BILIRUBIN,DIRECT 1.2 mg/dL (0.0-0.2); BILIRUBIN,TOTAL 1.5 mg/dL (0.2-1); BLOOD UREA NITROGEN 41.3 mg/dL (7-18); CREATININE 1.8 mg/dL (0.55-1.3); MAGNESIUM 2.4 mg/dL (1.8-2.4); POTASSIUM 3.8 mmol/L (3.5-5.1); TOT PROT 5.5 g/dl (6.4-8.2)
[2019-01-04 16:01] LABS: ANISOCYTOSIS 2+; MACROCYTOSIS 1+; OVALOCYTE 1+; PLATELET ESTIMATE DECREASED; TEAR DROP CELLS 1+
[2019-01-04] MEDS ORDERED: PORTA CATH FLUSH 10 ML IVPUSH ONE (18:17)
[2019-01-04 18:18] VITALS: TEMP 97.8
[2019-01-04 18:19] VITALS: BP 99/64; PULSE 73
== END 2019-01-04 16:00 | disposition home or self-care (01) ==
LOC: JONCCHEMO 06:43 → J7W 12:30 → JONCCHEMO 16:00
PROVIDERS: ATTEND Internal Medicine Hematology & Oncology
DX: Z51.11 Encounter for antineoplastic chemotherapy (principal); C45.0 Mesothelioma of pleura
CPT/HCPCS: 36415; 80048; 80076; 83735; 85025; 96367; 96375; 96413; G0463-25; J2469

== ENCOUNTER 2019-01-04 16:47 | Inpatient (IN) | payer MEDICARE ==
--- NOTE | 2019-01-04 16:55 | PDOC ---
Rapid Medical Evaluation Medical Evaluation: Allergies Allergy/AdvReac Type Severity Reaction Status Date / Time sulfur [From Sulfur-8] Allergy Mild Rash Verified 09/02/18 15:00 01/04/19 16:53 This patient had a brief in-person evaluation by me. cc: swelling of both lower extremities x > 1 week, reports getting worse. Sent to ed from wound clinic complaining of pain and shortness of breath PE: appears winded, has portable oxygen via nasal cannula even and unlabored breathing bipedal edema Orders: labs This patient will proceed to Ed for further evaluation <Alecia Lynn - Last Filed: 01/04/19 16:53> Medical Evaluation: Allergies Allergy/AdvReac Type Severity Reaction Status Date / Time sulfur [From Sulfur-8] Allergy Mild Rash Verified 01/04/19 16:56 Vital Signs Temp Pulse Resp BP Pulse Ox 97.5 F L 82 19 110/72 99 01/04/19 16:53 01/04/19 16:53 01/04/19 16:53 01/04/19 16:53 01/04/19 16:53 <Dorothy Nichols - Last Filed: 01/04/19 19:58> Time Seen by Provider: 01/04/19 16:53 Discharge Disposition <Alecia Lynn - Last Filed: 01/04/19 16:53> <Dorothy Nichols - Last Filed: 01/04/19 19:58> - Diagnosis Pedal edema - Referrals Referrals: Gael Maddox MD [Primary Care Provider] - - Patient Instructions - Post Discharge Activity
--- NOTE | 2019-01-04 19:51 | PDOC ---
History of Present Illness - General Chief Complaint: Wound Stated Complaint: SWELLING FEET, WOUNDS Time Seen by Provider: 01/04/19 16:53 History Source: Patient Exam Limitations: No Limitations - History of Present Illness Initial Comments: Pt is a 68 yo M, with PMH of HTN, HLD, CHF, mesothelioma (chemo q2w), and AFib ( on eliquis), who is presenting with complaints of worsening shortness of breath with exertion and LE swelling over the past 2 weeks. Pt presented for his chemotx appointment today, where staff sent him to the ER for concerns of his SOB and worsening swelling. Pt states he has become more SOB since his last discharge in August 2018, and has difficulty walking around the house. Over the past few days, he noticed his LE swelling was worsening, and began to have weeping of clear fluid b/l. Pt denies any fevers/chills, headache, vision changes, syncope, chest pain, palpitations, nausea/vomiting, abdominal pain, urinary symptoms, diarrhea/constipation. Allergies: sulfa PCP: Varsha William: Oscar Cards: Soumya Onc: Trent Social: Pt denies any cigarette, alcohol, or drug use. Pt denies any recent travel or sick contacts. Surgical: no relevant history. Family: no relevant history. 01/05/19 04:42 Past History - Travel Traveled outside of the country in the last 30 days: No Close contact w/someone who was outside of country & ill: No - Past Medical History Allergies/Adverse Reactions: Allergies Allergy/AdvReac Type Severity Reaction Status Date / Time sulfur [From Sulfur-8] Allergy Mild Rash Verified 01/04/19 16:56 Home Medications: Ambulatory Orders Amlodipine Besylate [Norvasc -] 5 mg PO DAILY 08/11/17 Carvedilol 12.5 mg PO BID 08/11/17 Fenofibrate [Lipofen] 160 mg PO DAILY 08/11/17 Folic Acid 1 mg PO DAILY 08/11/17 Omeprazole Magnesium [Prilosec Otc] 20 mg PO ONCE 08/11/17 Budesonide/Formeterol Fumarate [SYMBICORT 80/4.5mcg -] 2 inh IH BID 07/12/18 Ipratropium/Albuterol Sulfate [Combivent Respimat 20-100 Mcg] 4 gm IH BID Albuterol 2.5/Ipratropium 0.5 [Duoneb -] 1 neb IH QID PRN #3 vial.neb. 07/20/18 Apixaban [Eliquis] 5 mg PO BID #60 tablet 07/20/18 Nebulizer [Compact Ultrasonic Nebulizer] 1 each MC DAILY PRN #1 each 07/20/18 Potassium Chloride 20 meq PO DAILY 09/02/18 Amiodarone HCl [Cordarone -] 200 mg PO DAILY 12/28/18 Atovaquone [Mepron -] 1,500 mg PO DAILY 12/28/18 Fluconazole [Diflucan -] 100 mg PO DAILY 12/28/18 Gabapentin [Neurontin -] 300 mg PO DAILY 12/28/18 L.acidoph,Paracasei, B.lactis [Probiotic] 1 tab PO ASDIR 12/28/18 Nystatin 100,000 unit PO QID 12/28/18 Prednisone 5 mg PO ASDIR 12/28/18 hydrOXYzine HCL [Atarax -] 10 mg PO TID 12/28/18 Anemia: No Asthma: Yes Cancer: Yes (mesothelioma) Cardiac Disorders: Yes CVA: No COPD: Yes CHF: Yes Dementia: No Diabetes: No GI Disorders: No Disorders: No HTN: Yes Hypercholesterolemia: Yes Kidney Stones: Yes Liver Disease: No Seizures: No Thyroid Disease: No Lung CA: (MESOTHELIOMA) - Surgical History Lung Surgery: Yes (lung biopsy) Orthopedic Surgery: Yes (arthroscopy right knee) - Suicide/Smoking/Psychosocial Hx Smoking History: Never smoked Have you smoked in the past 12 months: No If you are a former smoker, when did you quit?: 8 years Information on smoking cessation initiated: No Hx Alcohol Use: No Drug/Substance Use Hx: No Substance Use Type: None Review of Systems - Review of Systems Able to Perform ROS?: Yes Is the patient limited Gabonese proficient: No Constitutional: Yes: Weight Stable. No: Chills, Diaphoresis, Fever, Loss of Appetite, Malaise, Night Sweats, Weakness HEENTM: No: Blurred Vision, Recent change in vision, Nose Pain, Nose Congestion , Throat Pain, Difficulty Swallowing Respiratory: Yes: See HPI, Cough, Shortness of Breath, SOB with Exertion, Productive cough (whitish sputum). No: Orthopnea, SOB at Rest, Wheezing, Hemoptysis Cardiac (ROS): Yes: See HPI, Edema. No: Chest Pain, Irregular Heart Rate, Lightheadedness, Palpitations, Syncope, Chest Tightness ABD/GI: Yes: Abdominal Distended. No: Constipated, Diarrhea, Nausea, Poor Appetite, Poor Fluid Intake, Rectal Bleeding, Vomiting, Indigestion, Abdominal cramping : No: Burning, Dysuria, Pain, Urgency Musculoskeletal: No: Back Pain, Joint Pain, Muscle Pain, Muscle Weakness Integumentary: No: Rash Neurological: No: Headache, Numbness, Paresthesia, Weakness, Unsteady Gait, Dizziness Psychiatric: No: Sleep Pattern Change, Change in Appetite Endocrine: No: Increased Urine, Change in Weight Hematologic/Lymphatic: Yes: Anemia (chronic). No: Blood Clots, Easy Bleeding, Easy Bruising All Other Systems: Reviewed and Negative *Physical Exam - Vital Signs Last Vital Signs Temp Pulse Resp BP Pulse Ox 97.5 F L 82 19 110/72 99 01/04/19 16:53 01/04/19 16:53 01/04/19 16:53 01/04/19 16:53 01/04/19 16:53 - Physical Exam Comments: On exam, pt tachycardic, increased work of breathing. Pt appears anxious and has SOB, obese body habitus. Pt alert and oriented x3. 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 No midline spinal tenderness, step-offs, or crepitus. Head normocephalic, atraumatic. Eyes PERRLA, EOMI. Oropharynx without erythema or exudates, no LAD b/l. No nasal congestion, hearing intact. Clear heart sounds, S1/S2, no JVD, or heart murmur. B/l pitting edema up to waist with clear weeping from lower extremities. Diminished lung sounds throughout with expiratory wheezing. Increased work of breathing. No abdominal or CVA tenderness to palpation, no rebound, no guarding. Abdomen taut and distended. Normoactive bowel sounds. Skin without jaundice or rash. 01/04/19 21:54 Vital Signs - Vital Signs #1 Blood Pressure: 122/70 MAP: 87 BP Location: Right Arm Blood Pressure Position: Sitting Pulse Rate: 110 Respiratory Rate: 20 O2 Sat by Pulse Oximetry (%): 98 Oxygen Delivery Method: Simple O2 Mask Oxygen Flow Rate: 4 ED Treatment Course - LABORATORY CBC & Chemistry Diagram: 01/04/19 21:30 01/04/19 21:30 - RADIOLOGY Radiology Studies Ordered: Category Date Time Status CHEST X-RAY PORTABLE* [RAD] Stat Radiology 01/04/19 19:12 Ordered Medical Decision Making - Critical Care Time Total Critical Care Time (minutes): 120 Critical Care Statement: The care of this patient involved high complexity decision making to prevent further life threatening deterioration of the patient 's condition and/or to evaluate & treat vital organ system(s) failure or risk of failure. - Medical Decision Making Pt was seen at bedside, also will be seen by attending Dr. Nichols. Pt presenting with complaints of worsening shortness of breath with exertion and LE swelling over the past 2 weeks. Pt presented for his chemotx appointment today, where staff sent him to the ER for concerns of his SOB and worsening swelling. Pt states he has become more SOB since his last discharge in August 2018, and has difficulty walking around the house. Over the past few days, he noticed his LE swelling was worsening, and began to have weeping of clear fluid b/l. Pt denies any fevers/chills, headache, vision changes, syncope, chest pain , palpitations, nausea/vomiting, abdominal pain, urinary symptoms, diarrhea/ constipation. Most likely acute on chronic CHF vs COPD exacerbation. Symmetric b/l LE edema with pitting to waist (anasarca 2/2 worsening CHF, renal function?), no concern for DVT or cellulitis at this time. Ordered work-up including CBC, CMP, BNP, cardiac profile, ECG, chest x-ray. Provided 40 mg IV lasix, duonebs, and bipap for improvement of SOB and edema. Will continue to reassess pt and monitor for symptomatic improvement. ECG: Sinus tachycardia (HR 106, ME 192, QRS 70, QTc 406). TWIs in inferior and lateral leads. No significant ST segment changes. No significant changes from prior ECG (09/02/2018). 01/04/19 21:57 CBC WNL CMP: K 5.4, BUN 43, Cr 1.7 -- renal function at pt baseline, providing diuresis , and lasix should also reduce K. Pt removed from Bipap as pt has worsening coughing and ABG showed no CO2 retention. Pt stable on face mask with 3L O2. Pt was admitted to hospitalist team (Dr. Ramirez). Spoke with ICU team who will come to see the pt. 01/04/19 22:30 Pts breathing improved, ICU will not take the pt at this time, think tele inpatient is appropriate as pt is only on face mask and has improved. Providing additional 40 mg IV lasix for continued swelling. Will monitor pt. 01/04/19 23:35 Pts additional 40 mg IV lasix held, as pts BP dropped to low 100s systolic and was receiving his nighttime meds. Pts breathing has improved and we will monitor for additional diuresis. Pt has continued to urinate. 01/05/19 04:34 *DC/Admit/Observation/Transfer Diagnosis at time of Disposition: Pedal edema, Mesothelioma (pleural) COPD (chronic obstructive pulmonary disease) Qualifiers: COPD type: unspecified COPD Qualified Code(s): J44.9 - Chronic obstructive pulmonary disease, unspecified CHF exacerbation Qualifiers: Heart failure type: unspecified Qualified Code(s): I50.9 - Heart failure, unspecified - Discharge Dispostion Condition at time of disposition: Stable Decision to Admit order: Yes - Referrals - Patient Instructions - Post Discharge Activity
[2019-01-04 20:11] LABS: ARTERIAL BLD GAS O2 SATURATION 98.2 % (95-98); ARTERIAL BLOOD GAS BASE EXCESS -0.6 meq/l (-2-2); ARTERIAL BLOOD GAS PCO2 42.5 mmHg (35-45); ARTERIAL BLOOD GAS PO2 117 mmHg (80-105); ARTERIAL BLOOD GAS pH 7.37 (7.35-7.45); CARBOXYHEMOGLOBIN 1.4 % (0-2)
[2019-01-04 20:33] LABS: ALLENS TEST POSITIVE
[2019-01-04] MEDS ORDERED: ALBUTEROL SO4 2.5/IPRATROPIUM 0.5 INH SOL 3 ML VIAL.NEB. NEB ONE ×2 (20:53→20:56)
[2019-01-04] MEDS ORDERED: FUROSEMIDE 40 MG/4 ML INJECTABLE VIAL IVPUSH ONE ×2 (20:58→23:27)
--- NOTE | 2019-01-04 21:16 | HP ---
Admitting History and Physical - Primary Care Physician PCP: Giovanni Ramirez - Admission History of Present Illness: 68 year old male, with a significant PMH of mesothilioma, Afib (on Eliquis), COPD, chronic kidney disease, who presents from chemo upstairs to the emergency department for evaluation of increasing respiratory distress and worsening bilateral lower extremity edema up to the waist. 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 History of Recent Travel: No Home Medications - Allergies Allergies/Adverse Reactions: Allergies Allergy/AdvReac Type Severity Reaction Status Date / Time sulfur [From Sulfur-8] Allergy Mild Rash Verified 01/04/19 16:56 - Home Medications Home Medications: Ambulatory Orders Amlodipine Besylate [Norvasc -] 5 mg PO DAILY 08/11/17 Carvedilol 6.25 mg PO BID 08/11/17 Fenofibrate [Lipofen] 160 mg PO DAILY 08/11/17 Folic Acid 1 mg PO DAILY 08/11/17 Omeprazole Magnesium [Prilosec Otc] 20 mg PO ONCE 08/11/17 Budesonide/Formeterol Fumarate [SYMBICORT 80/4.5mcg -] 2 inh IH BID 07/12/18 Ipratropium/Albuterol Sulfate [Combivent Respimat 20-100 Mcg] 4 gm IH BID Albuterol 2.5/Ipratropium 0.5 [Duoneb -] 1 neb IH QID PRN #3 vial.neb. 07/20/18 Apixaban [Eliquis] 5 mg PO BID #60 tablet 07/20/18 Nebulizer [Compact Ultrasonic Nebulizer] 1 each MC DAILY PRN #1 each 07/20/18 Potassium Chloride 20 meq PO DAILY 09/02/18 Amiodarone HCl [Cordarone -] 200 mg PO DAILY 12/28/18 Atovaquone [Mepron -] 1,500 mg PO DAILY 12/28/18 Fluconazole [Diflucan -] 100 mg PO DAILY 12/28/18 Gabapentin [Neurontin -] 300 mg PO DAILY 12/28/18 L.acidoph,Paracasei, B.lactis [Probiotic] 1 tab PO ASDIR 12/28/18 Nystatin 100,000 unit PO QID 12/28/18 Prednisone 5 mg PO ASDIR 12/28/18 hydrOXYzine HCL [Atarax -] 10 mg PO TID 12/28/18 Family Disease History - Family Disease History Family Disease History: Other: Father (Unknown medical conditions), Mother ( Alive, CVA), Brother (1, HTN), Sister (1, HTN), Son (2, healthy), Daughter (1, healthy) Physical Examination Vital Signs: Vital Signs Temperature 97.5 F L 01/04/19 16:53 Pulse Rate 82 01/04/19 16:53 Respiratory Rate 01/04/19 16:53 Blood Pressure 110/72 01/04/19 16:53 O2 Sat by Pulse Oximetry (%) 99 01/04/19 19:57 HENT: Yes: Atraumatic Neck: Yes: Supple Cardiovascular: Yes: Regular Rate and Rhythm Respiratory: Yes: Rhonchi, Wheezes Gastrointestinal: Yes: Normal Bowel Sounds Extremities: Yes: WNL Edema: Yes Edema: LLE: 3+, RLE: 3+ Neurological: Yes: Alert, Oriented Problem List - Problems (1) Pedal edema Assessment/Plan: on diuretics Code(s): R60.0 - LOCALIZED EDEMA (2) CYNDIE (acute kidney injury) Code(s): N17.9 - ACUTE KIDNEY FAILURE, UNSPECIFIED (3) Acute diastolic heart failure Code(s): I50.31 - ACUTE DIASTOLIC (CONGESTIVE) HEART FAILURE (4) Afib Assessment/Plan: on meds on AC Code(s): I48.91 - UNSPECIFIED ATRIAL FIBRILLATION (5) CHF exacerbation Code(s): I50.9 - HEART FAILURE, UNSPECIFIED Qualifiers: Heart failure type: unspecified Qualified Code(s): I50.9 - Heart failure, unspecified (6) COPD (chronic obstructive pulmonary disease) Assessment/Plan: prn nebs and oxygen Code(s): J44.9 - CHRONIC OBSTRUCTIVE PULMONARY DISEASE, UNSPECIFIED Qualifiers: COPD type: unspecified COPD Qualified Code(s): J44.9 - Chronic obstructive pulmonary disease, unspecified (7) HTN (hypertension) Code(s): I10 - ESSENTIAL (PRIMARY) HYPERTENSION (8) Mesothelioma (pleural) Code(s): C45.0 - MESOTHELIOMA OF PLEURA Assessment/Plan Laboratory Tests 01/04/19 20:00 Anticoagulation Therapy No Result Required. Puncture Site Right radial Patient Temperature 97.5 ABG pH 7.37 ABG pCO2 at Pt Temp 42.5 ABG pO2 at Pt Temp 117 H ABG HCO3 24.1 ABG O2 Sat (Measured) 98.2 H ABG O2 Content 14.4 L ABG Base Excess -0.6 Amrit Test Positive Carboxyhemoglobin 1.4 Methemoglobin 0.3 O2 Delivery Device Nasal Oxygen Flow Rate 3l Vent Mode No Result Required. Vent Rate No Result Required. Mechanical Rate No Result Required. Pressure Support Vent No Result Required. Active Medications Generic Name Dose Route Start Last Admin Trade Name Freq PRN Reason Stop Dose Admin Acetaminophen 650 mg 01/04/19 21:51 Tylenol - PO Q6H PRN FEVER Albuterol/Ipratropium 1 amp 01/04/19 21:52 01/06/19 05:25 Duoneb - NEB 1 amp Q4H PRN Administration SHORTNESS OF BREATH Amiodarone HCl 200 mg 01/05/19 10:00 01/06/19 10:13 Cordarone - PO 200 mg DAILY JANINE Administration Apixaban 5 mg 01/04/19 22:00 01/06/19 10:13 Eliquis - PO 5 mg BID JANINE Administration Atovaquone 1,500 mg 01/05/19 10:00 01/06/19 10:13 Mepron - PO 1,500 mg DAILY JANINE Administration Budesonide/Formoterol Fumarate 2 puff 01/04/19 22:00 01/06/19 10:13 Symbicort 80/4.5mcg - IH 2 puff BID JANINE Administration Carvedilol 12.5 mg 01/04/19 22:00 01/06/19 10:13 Coreg - PO 12.5 mg BID JANINE Administration Fenofibric Acid 135 mg 01/05/19 10:00 01/06/19 10:12 Trilipix - PO 135 mg DAILY JANINE Administration Folic Acid 1 mg 01/05/19 10:00 01/06/19 10:13 Folic Acid - PO 1 mg DAILY JANINE Administration Furosemide 80 mg 01/06/19 11:01 01/06/19 13:14 Lasix Injection - IVPUSH 80 mg BID@0600,1400 JANINE Administration Gabapentin 300 mg 01/05/19 10:00 01/06/19 10:13 Neurontin - PO 300 mg DAILY JANINE Administration
[2019-01-04 21:49] LABS: HYALINE CASTS 14 /lpf (0-8); URINE APPEARANCE CLEAR; URINE BACTERIA 5.9 /hpf (NEGATIVE); URINE BILIRUBIN 1+ (NEGATIVE); URINE COLOR DK YELLOW; URINE GLUCOSE (UA) NEGATIVE (NEGATIVE); URINE KETONE NEGATIVE (NEGATIVE); URINE LEUK ESTERASE NEGATIVE (NEGATIVE); URINE NITRITE NEGATIVE (NEGATIVE); URINE PROTEIN 2+ (NEGATIVE); URINE RBC 8 /hpf (0-4); URINE WBC 1 /hpf (0-5)
[2019-01-04 21:49] LABS: BASO % 0.1 % (0-2.0); HEMOGLOBIN 10.3 GM/dL (11.7-16.9); LYMPH % 1.5 % (8-40); MCH 26.2 pg (25.7-33.7); MCHC 32.2 g/dl (32.0-35.9); MEAN CELL VOLUME 81.4 fl (80-96); MEAN PLT VOLUME 8.2 fl (7.5-11.1); NEUT % 97.4 % (42.8-82.8); PLATELET COUNT 193 K/MM3 (134-434); RBC 3.93 M/mm3 (4.00-5.60); RDW 24.4 % (11.9-15.9); WHITE BLOOD COUNT 7.8 K/mm3 (4.0-10.0)
[2019-01-04 22:26] LABS: MAGNESIUM 2.3 mg/dL (1.8-2.4)
[2019-01-04 22:26] LABS: ALBUMIN 2.6 g/dl (3.4-5.0); BILIRUBIN,TOTAL 2.4 mg/dL (0.2-1); BLOOD UREA NITROGEN 43.9 mg/dL (7-18); CALCIUM 8.1 mg/dL (8.5-10.1); CREATININE 1.7 mg/dL (0.55-1.3); N-TERMINAL BNP 2280.2 pg/ml (5-125); POTASSIUM 5.4 mmol/L (3.5-5.1); TOT PROT 6.1 g/dl (6.4-8.2)
[2019-01-04 23:14] LABS: ANISOCYTOSIS 2+; PLATELET ESTIMATE ADEQUATE
[2019-01-04] MEDS: CARVEDILOL 12.5 MG TABLET (FP) PO SCH (23:22)
[2019-01-04] MEDS: APIXABAN 5 MG TABLET PO SCH (23:23)
[2019-01-04] MEDS: BUDESONIDE/FORMETEROL FUMARATE 80/4.5 mcg INHALER IH SCH (23:23)
--- NOTE | 2019-01-04 23:41 | CONSULT ---
Consultation: REQUESTING PROVIDER: Dr. Ramirez CONSULT REQUEST: We have been asked to medically evaluate this patient for ICU. HISTORY OF PRESENT ILLNESS: Pt. is a 68 y.o. M w/ PMHx. of Mesothelioma (on Chemo for last 2 years 6 months), Afib (on Amiodarone for last 2 years and Eliquis), CHFpEF, and HTN presents with increased shortness of breath, and worsening anasarca after chemotherapy today. Pt. states that his shortness of breath has been worsening especially on exertion and now at rest over the last month when he was discharged from [facility]. Pt. states that his this was also when the swelling started again. Pt. endorses sleeping with his bed at about a 45 degree angle in addition to 2 pillows at night. Pt. states he has frequent nighttime cough with clear secretions but denies any fever. Pt. endorses having chills to day. Pt. denies any chest pain, palpitations, abdominal pain, diarrhea (though endorses frequent defecation), or constipation. Pt. denies any numbness/tingling in any of his extremities. Pt. states he does have generalized weakness of his body. Pt. follows Dr. Dooley as his sourcing internship and Dr. Newman as his oncologist. He laments the fact that his care has been fractured in that there have been frequent changes to his medication without any communication between his various physicians. Pt. is unclear when his last echo was performed but states he had an abdominal US ~2 months ago for increased swelling in his abdomen. Pt. states that his Lasix was increased to 20mg BID 2 months ago but has been unable to fill a prescription for it and thus has been taking 20mg daily, last dose yesterday. Pt.'s Coreg was increased to 12.5mg BID three days ago. Pt. denies taking Amlodipine any longer. REVIEW OF SYSTEMS: As above PHYSICAL EXAMINATION Vital Signs - 24 hr 01/04/19 01/04/19 01/04/19 16:53 19:57 21:21 Temperature 97.5 F L Pulse Rate 82 Pulse Rate [#1] Respiratory 19 Rate Respiratory Rate [#1] Blood Pressure 110/72 Blood Pressure [#1] O2 Sat by Pulse 99 99 98 Oximetry (%) O2 Sat by Pulse Oximetry (%) [ #1] 01/04/19 23:35 Temperature Pulse Rate Pulse Rate [#1] 110 H Respiratory Rate Respiratory 20 Rate [#1] Blood Pressure Blood Pressure 122/70 [#1] O2 Sat by Pulse Oximetry (%) O2 Sat by Pulse 98 Oximetry (%) [ #1] GENERAL: Awake, alert, and fully oriented, in no acute distress. HEAD: Normal with no signs of trauma. EYES: Pupils equal, round and reactive to light, extraocular movements intact, sclera anicteric, conjunctiva clear. No lid lag. EARS, NOSE, THROAT: Ears normal, nares patent, oropharynx clear without exudates. Moist mucous membranes. NECK: Normal range of motion, supple without lymphadenopathy, JVD, or masses. LUNGS: Breath sounds equal, clear to auscultation bilaterally. No wheezes, and no crackles. No accessory muscle use. HEART: Regular rate and rhythm, normal S1 and S2 without murmur, rub or gallop. ABDOMEN: Soft, nontender, not distended, normoactive bowel sounds, no guarding, no rebound, no masses. No hepatomegaly or splenomegaly. MUSCULOSKELETAL: Normal range of motion at all joints. No bony deformities or tenderness. No CVA tenderness. UPPER EXTREMITIES: 2+ pulses, warm, well-perfused. No cyanosis. No clubbing. Cap refill <2 seconds. No peripheral edema. LOWER EXTREMITIES: 2+ pulses, warm, well-perfused. No calf tenderness. No peripheral edema. NEUROLOGICAL: Cranial nerves II-XII intact. Normal speech. Normal gait. PSYCHIATRIC: Cooperative. Good eye contact. Appropriate mood and affect. SKIN: Warm, dry, normal turgor, no rashes or lesions noted. Laboratory Results - last 24 hr 01/04/19 01/04/19 01/04/19 20:00 21:17 21:17 WBC RBC Hgb Hct MCV MCH MCHC RDW Plt Count MPV Absolute Neuts (auto) Neutrophils % Neutrophils % (Manual) Band Neutrophils % Lymphocytes % Lymphocytes % (Manual) Monocytes % Monocytes % (Manual) Eosinophils % Eosinophils % (Manual) Basophils % Basophils % (Manual) Nucleated RBC % Platelet Estimate Anisocytosis PT with INR Cancelled INR Cancelled PTT (Actin FS) Cancelled Anticoagulation Therapy No Result Required. Puncture Site Right radial Patient Temperature 97.5 ABG pH 7.37 ABG pCO2 at Pt Temp 42.5 ABG pO2 at Pt Temp 117 H ABG HCO3 24.1 ABG O2 Sat (Measured) 98.2 H ABG O2 Content 14.4 L ABG Base Excess -0.6 Amrit Test Positive Carboxyhemoglobin 1.4 Methemoglobin 0.3 O2 Delivery Device Nasal Oxygen Flow Rate 3l Vent Mode No Result Required. Vent Rate No Result Required. Mechanical Rate No Result Required. Pressure Support Vent No Result Required. Sodium Potassium Chloride Carbon Dioxide Anion Gap BUN Creatinine Est GFR (CKD-EPI)AfAm Est GFR (CKD-EPI)NonAf Random Glucose Lactic Acid Calcium Magnesium 2.3 Total Bilirubin AST ALT Alkaline Phosphatase Creatine Kinase 88 Troponin I 0.07 H B-Natriuretic Peptide Total Protein Albumin Urine Color Urine Appearance Urine pH Ur Specific [place] Urine Protein Urine Glucose (UA) Urine Ketones Urine Blood Urine Nitrite Urine Bilirubin Urine Urobilinogen Ur Leukocyte Esterase Urine WBC (Auto) Urine RBC (Auto) Urine Casts (Auto) U Epithel Cells (Auto) Urine Bacteria (Auto) 01/04/19 01/04/19 01/04/19 21:17 21:23 21:30 WBC 7.8 RBC 3.93 L Hgb 10.3 L Hct 32.0 L MCV 81.4 MCH 26.2 MCHC 32.2 RDW 24.4 H Plt Count 193 D MPV 8.2 Absolute Neuts (auto) 7.6 Neutrophils % 97.4 H D Neutrophils % (Manual) 89.0 H Band Neutrophils % 7.0 Lymphocytes % 1.5 L D Lymphocytes % (Manual) 3.0 L D Monocytes % 1.0 L D Monocytes % (Manual) 0 L D Eosinophils % 0.0 D Eosinophils % (Manual) 0.0 Basophils % 0.1 Basophils % (Manual) 0.0 Nucleated RBC % 4 H Platelet Estimate Adequate Anisocytosis 2+ PT with INR INR PTT (Actin FS) Anticoagulation Therapy Puncture Site Patient Temperature ABG pH ABG pCO2 at Pt Temp ABG pO2 at Pt Temp ABG HCO3 ABG O2 Sat (Measured) ABG O2 Content ABG Base Excess Amrit Test Carboxyhemoglobin Methemoglobin O2 Delivery Device Oxygen Flow Rate Vent Mode Vent Rate Mechanical Rate Pressure Support Vent Sodium Potassium Chloride Carbon Dioxide Anion Gap BUN Creatinine Est GFR (CKD-EPI)AfAm Est GFR (CKD-EPI)NonAf Random Glucose Lactic Acid 2.2 H* Calcium Magnesium Total Bilirubin AST ALT Alkaline Phosphatase Creatine Kinase Troponin I B-Natriuretic Peptide Total Protein Albumin Urine Color Dk yellow Urine Appearance Clear Urine pH 5.0 Ur Specific [place] 1.016 Urine Protein 2+ H Urine Glucose (UA) Negative Urine Ketones Negative Urine Blood 1+ H Urine Nitrite Negative Urine Bilirubin 1+ H Urine Urobilinogen 1.0 Ur Leukocyte Esterase Negative Urine WBC (Auto) 1 Urine RBC (Auto) 8 Urine Casts (Auto) 14 U Epithel Cells (Auto) 1.0 Urine Bacteria (Auto) 5.9 01/04/19 21:30 WBC RBC Hgb Hct MCV MCH MCHC RDW Plt Count MPV Absolute Neuts (auto) Neutrophils % Neutrophils % (Manual) Band Neutrophils % Lymphocytes % Lymphocytes % (Manual) Monocytes % Monocytes % (Manual) Eosinophils % Eosinophils % (Manual) Basophils % Basophils % (Manual) Nucleated RBC % Platelet Estimate Anisocytosis PT with INR INR PTT (Actin FS) Anticoagulation Therapy Puncture Site Patient Temperature ABG pH ABG pCO2 at Pt Temp ABG pO2 at Pt Temp ABG HCO3 ABG O2 Sat (Measured) ABG O2 Content ABG Base Excess Amrit Test Carboxyhemoglobin Methemoglobin O2 Delivery Device Oxygen Flow Rate Vent Mode Vent Rate Mechanical Rate Pressure Support Vent Sodium 138 Potassium 5.4 H Chloride 103 Carbon Dioxide 29 Anion Gap 6 L BUN 43.9 H Creatinine 1.7 H Est GFR (CKD-EPI)AfAm 46.98 Est GFR (CKD-EPI)NonAf 40.54 Random Glucose 124 H Lactic Acid Calcium 8.1 L Magnesium Total Bilirubin 2.4 H AST 211 H ALT 184 H Alkaline Phosphatase 173 H Creatine Kinase Troponin I B-Natriuretic Peptide 2280.2 H Total Protein 6.1 L Albumin 2.6 L Urine Color Urine Appearance Urine pH Ur Specific [place] Urine Protein Urine Glucose (UA) Urine Ketones Urine Blood Urine Nitrite Urine Bilirubin Urine Urobilinogen Ur Leukocyte Esterase Urine WBC (Auto) Urine RBC (Auto) Urine Casts (Auto) U Epithel Cells (Auto) Urine Bacteria (Auto) Active Medications Current Medications Acetaminophen (Tylenol -) 650 mg PO Q6H PRN PRN Reason: FEVER Albuterol/Ipratropium (Duoneb -) 1 amp NEB Q4H PRN PRN Reason: SHORTNESS OF BREATH Amiodarone HCl (Cordarone -) 200 mg PO DAILY [facility] Amlodipine Besylate (Norvasc -) 5 mg PO DAILY JANINE Apixaban (Eliquis -) 5 mg PO BID JANINE Atovaquone (Mepron -) 1,500 mg PO DAILY JANINE Budesonide/Formoterol Fumarate (Symbicort 80/4.5mcg -) 2 puff IH BID JANINE Carvedilol (Coreg -) 12.5 mg PO BID JANINE Fenofibric Acid (Trilipix -) 135 mg PO DAILY JANINE Folic Acid (Folic Acid -) 1 mg PO DAILY JANINE Furosemide (Lasix Injection -) 40 mg IVPUSH DAILY JANINE Gabapentin (Neurontin -) 300 mg PO DAILY JANINE ASSESSMENT/PLAN: Pt. is a 68 y.o. M w/ PMHx. of Mesothelioma (on Chemo for last 2 years 6 months) , Afib (on Eliquis), CHFpEF, and HTN presents with increased shortness of breath , and worsening anasarca after chemotherapy today. Cardiovascular/Pulmonology #Shortness of breath 2/2 Acute exacerbation on Chronic Heart Failure w/ preserved EF Received 40mg IV Lasix in ED--> would recommend another 40mg IV Would give strict Is & Os and evaluate urine output after Lasix dose in addition to daily weights would monitor BMP for expected elevation in Creatinine from new baseline of 1.7 and for potassium decrease Would fluid restrict Pt. to 1L daily Would consult cardiology( Dr. Dooley) would continue Coreg 12.5mg BID Per chart Pt. has angiodema reaction to ARB and fish oil CXR per my read shows increased LLL congestion, pulmonary vascular markings and heart size would continue with Duonebs PRN for bronchodilation with low threshold for low dose albuterol given history of Afib currently saturating 100% on 4L NC without accessory muscle use ABG on ED arrival pH: 7.37, pCO2: 42.9 on 3L NC would obtain echo as last was in June showing small pericardial effusion, EF : 60-65%, mild MR + TR, mild pulmonic valvular regurgitation,and RV function mildly reduced #Afib c/w amiodarone and Eliquis #HTN would c/w Coreg would d/c amlodipine as it can cause edema and Pt. denies taking it anymore. #Mesothelioma would c/w chemotherapy regimen consider consulting Dr. Newman if high suspicion for chemotherapy drugs could be worsening heart failure with risks and benefits considered Infectious Disease #B/L lower extremity wounds 2/2 anasarca Pt. states gavino he had appointment with Dr. Thomas today, would consider consulting c/w IV Lasix 40mg Daily, can increase if Cr. remains stable Dispo: At this time Pt. can be managed on Telemetry, if Pt. develops worsening of respiratory function please re-consult.. Thank you for this consultative opportunity. Visit type - Emergency Visit Emergency Visit: Yes ED Registration Date: 01/04/19 Care time: The patient presented to the Emergency Department on the above date and was hospitalized for further evaluation of their emergent condition. - New Patient This patient is new to me today: Yes Date on this admission: 01/05/19 - Critical Care Critical Care patient: Yes Total Critical Care Time (in minutes): 45 Critical Care Statement: The care of this patient involved high complexity decision making to prevent further life threatening deterioration of the patient 's condition and/or to evaluate & treat vital organ system(s) failure or risk of failure. ATTENDING PHYSICIAN STATEMENT I saw and evaluated the patient. I reviewed the resident's note and discussed the case with the resident. I agree with the resident's findings and plan as documented. SUBJECTIVE: OBJECTIVE: ASSESSMENT AND PLAN:
[2019-01-05] MEDS ORDERED: APIXABAN 5 MG TABLET PO ONE (00:14)
[2019-01-05] MEDS ORDERED: FUROSEMIDE 40 MG/4 ML INJECTABLE VIAL ONE (00:14)
[2019-01-05] MEDS ORDERED: CARVEDILOL 12.5 MG TABLET (FP) ONE (00:14)
--- NOTE | 2019-01-05 01:53 | PDOC ---
Documentation entered by Anali Masterson SCRIBE, acting as scribe for Dorothy Nichols MD. Dorothy Nichols MD: This documentation has been prepared by the Aleja caro Sammi, SCRIBE, under my direction and personally reviewed by me in its entirety. I confirm that the documentation accurately reflects all work, treatment, procedures, and medical decision making performed by me. Attending Attestation - Resident Resident Name: Linda Nguyễn - ED Attending Attestation I have performed the following: I have examined & evaluated the patient, The case was reviewed & discussed with the resident, I agree w/resident's findings & plan, Exceptions are as noted - HPI HPI: 01/04/19 19:46 The patient is a 68 year old male, with a significant PMH of mesothilioma, Afib (on Eliquis), COPD, chronic kidney disease, who presents from chemo upstairs to the emergency department for evaluation of increasing respiratory distress and worsening bilateral lower extremity edema up to the waist. - Physicial Exam PE: 01/04/19 19:50 GENERAL: (+)chills Awake and alert. HEENT: Normocephalic, atraumatic. PERRLA, EOMI. No conjunctival pallor. Sclera are non- icteric. Moist mucous membranes. Oropharynx is clear. NECK: Supple. Full ROM. No JVD. Carotid pulses 2+ and symmetric, without bruits. No thyromegaly. No lymphadenopathy. CARDIOVASCULAR: (+)tachycardic No murmurs, rubs, or gallops. PULMONARY: (+)Increased respiratory rate and work of breathing ABDOMINAL: Soft. Non-tender. Non-distended. No rebound or guarding. No organomegaly. Normoactive bowel sounds. MUSCULOSKELETAL Normal range of motion at all joints. No bony deformities or tenderness. No CVA tenderness. EXTREMITIES: (+)3+ pitting edema way above knees. No cyanosis. No clubbing. SKIN: Warm and dry. Normal capillary refill. No rashes. No jaundice. NEUROLOGICAL: Alert, awake, appropriate. - Medical Decision Making 01/04/19 19:58 pt p/w resp distress and emergently placed on bipap labs reviewed cxr ordered, ekg is tachycardia @ 106 01/04/19 21:26 diff diag includes chf, sepsis,PNA. Pt to be admitted
[2019-01-05 07:45] LABS: ALBUMIN 2.4 g/dl (3.4-5.0); BILIRUBIN,TOTAL 1.7 mg/dL (0.2-1); BLOOD UREA NITROGEN 47.6 mg/dL (7-18); CREATININE 1.8 mg/dL (0.55-1.3); POTASSIUM 4.5 mmol/L (3.5-5.1); TOT PROT 5.4 g/dl (6.4-8.2)
[2019-01-05] MEDS ORDERED: FUROSEMIDE 40 MG/4 ML INJECTABLE VIAL IVPUSH SCH (10:00)
[2019-01-05] MEDS ORDERED: FENOFIBRATE 160 MG PO SCH (10:00)
[2019-01-05] MEDS ORDERED: amLODIPine BESYLATE 5 MG TABLET (FP) PO SCH (10:00)
--- NOTE | 2019-01-05 10:08 | CON.CARD ---
Cardiology Consult (text) - Consultation Consultation Note: Consultation Note: Chief Complaint: sob, le edema History of Present Illness: 68 y/o M h/o mesothelioma undergoing chemotherapy c/b constrictive pericarditis , afib, chronic diastolic HF, DM p/w shortness of breath, edema. Has been short of breath for last couple of months, noticed worsening edema in last few days. Was here for chemotherapy yesterday, and had wound care appointment for leg wounds/weeping from edema, was sent to the ER for dyspnea. Sees me for cardio, last seen 10/2018, had been on torsemide 40 mg AM, 20 mg PM which had been decreased due to worsening renal function in setting of chemotherapy. Chemotherapeutic agent recently changed by Dr Newman, has been taking lasix 20 mg PO BID at home, although ran out of pills and was taking it daily for last few days. PMH: asthma, HLD, CHF, nephrolithiasis, mesothelioma (dx 2017), constrictive pericarditis - Past Medical History Cardio/Vascular: Yes: CHF, Hyperlipdemia Pulmonary: Yes: Asthma - Smoking History Smoking history: Never smoked Have you smoked in the past 12 months: No If you are a former smoker, when did you quit?: LAST YEAR Home Medications - Allergies Allergies/Adverse Reactions: Allergies Allergy/AdvReac Type Severity Reaction Status Date / Time sulfur [From Sulfur-8] Allergy Mild Rash Verified 01/04/19 16:56 - Home Medications Home Medications Medication Instructions Recorded Amlodipine Besylate [Norvasc -] 5 mg PO DAILY 08/11/17 Carvedilol 12.5 mg PO BID 08/11/17 Fenofibrate [Lipofen] 160 mg PO DAILY 08/11/17 Folic Acid 1 mg PO DAILY 08/11/17 Omeprazole Magnesium [Prilosec Otc] 20 mg PO ONCE 08/11/17 Budesonide/Formeterol Fumarate 2 inh IH BID 07/12/18 [SYMBICORT 80/4.5mcg -] Ipratropium/Albuterol Sulfate 4 gm IH BID 07/12/18 [Combivent Respimat 20-100 Mcg] Albuterol 2.5/Ipratropium 0.5 1 neb IH QID PRN #3 vial.neb. 07/20/18 [Duoneb -] Apixaban [Eliquis] 5 mg PO BID #60 tablet 07/20/18 Nebulizer [Compact Ultrasonic 1 each MC DAILY PRN #1 each 07/20/18 Nebulizer] Potassium Chloride 20 meq PO DAILY 09/02/18 Amiodarone HCl [Cordarone -] 200 mg PO DAILY 12/28/18 Atovaquone [Mepron -] 1,500 mg PO DAILY 12/28/18 Fluconazole [Diflucan -] 100 mg PO DAILY 12/28/18 Gabapentin [Neurontin -] 300 mg PO DAILY 12/28/18 L.acidoph,Paracasei, B.lactis 1 tab PO ASDIR 12/28/18 [Probiotic] Nystatin 100,000 unit PO QID 12/28/18 Prednisone 5 mg PO ASDIR 12/28/18 hydrOXYzine HCL [Atarax -] 10 mg PO TID 12/28/18 Family Disease History - Family Disease History Family History: Denies (no known cmp) Review of Systems - Review of Systems Constitutional: denies: Chills, Fever Eyes: denies: Eye Pain HENT: denies: Nasal Congestion Neck: denies: Stiffness Cardiovascular: denies: Palpitations Respiratory: denies: Orthopnea, PND Gastrointestinal: denies: Diarrhea, Rectal Bleeding Genitourinary: denies: Burning, Hematuria Musculoskeletal: denies: Muscle Pain Integumentary: denies: Rash Neurological: denies: Numbness, Seizure, Syncope Endocrine: denies: Excessive Sweating Hematology/Lymphatic: denies: Excessive Bleeding Vital Signs: Vital Signs Period Temp Pulse Resp BP Sys/Clements Pulse Ox Last 24 Hr 97.5 F-99.8 F 69-124 14-32 105-122/68-78 95-100 Constitutional: Yes: Well Nourished, No Distress Eyes: No: Sclera Icterus HENT: No: Nasal Congestion Neck: No: Decreased ROM Respiratory: Yes: CTA Bilaterally, Diminished (bases). Gastrointestinal: Yes: Normal Bowel Sounds, Distention. No: Hepatomegaly, Palpable Mass, Tenderness Cardiovascular: Yes: Regular Rate and Rhythm JVD: No Carotid Bruit: No PMI: Non-Displaced Heart Sounds: Yes: S1, S2. No: Gallop Murmur: No: Systolic Murmur, Diastolic Murmur Extremities: No: Cool, Cyanosis Edema: 2+ cristian lower ext edema Peripheral Pulses: 2+ Left Carotid, 2+ Right Carotid, 2+ Left Doralis Pedis, 2+ Right Dorsalis Pedis Integumentary: No: Jaundice Neurological: Yes: Alert, Oriented (x3) Psychiatric: No: Agitated Laboratory Last Values WBC 7.8 K/mm3 (4.0-10.0) 01/04/19 21:30 Corrected WBC (auto) Cancelled 01/05/19 06:31 RBC 3.93 M/mm3 (4.00-5.60) L 01/04/19 21:30 Hgb 10.3 GM/dL (11.7-16.9) L 01/04/19 21:30 Hct 32.0 % (35.4-49) L 01/04/19 21:30 MCV 81.4 fl (80-96) 01/04/19 21:30 MCH 26.2 pg (25.7-33.7) 01/04/19 21:30 MCHC 32.2 g/dl (32.0-35.9) 01/04/19 21:30 RDW 24.4 % (11.9-15.9) H 01/04/19 21:30 Plt Count 193 K/MM3 (134-434) D 01/04/19 21:30 MPV 8.2 fl (7.5-11.1) 01/04/19 21:30 Absolute Neuts (auto) 7.6 K/mm3 (1.5-8.0) 01/04/19 21:30 Neutrophils % 97.4 % (42.8-82.8) H D 01/04/19 21:30 Neutrophils % (Manual) 89.0 % (42.8-82.8) H 01/04/19 21:30 Band Neutrophils % 7.0 % 01/04/19 21:30 Lymphocytes % 1.5 % (8-40) L D 01/04/19 21:30 Lymphocytes % (Manual) 3.0 % (8-40) L D 01/04/19 21:30 Monocytes % 1.0 % (3.8-10.2) L D 01/04/19 21:30 Monocytes % (Manual) 0 % (3.8-10.2) L D 01/04/19 21:30 Eosinophils % 0.0 % (0-4.5) D 01/04/19 21:30 Eosinophils % (Manual) 0.0 % (0-4.5) 01/04/19 21:30 Basophils % 0.1 % (0-2.0) 01/04/19 21:30 Basophils % (Manual) 0.0 % (0-2.0) 01/04/19 21:30 Nucleated RBC % 4 % (0-0) H 01/04/19 21:30 Platelet Estimate Adequate 01/04/19 21:30 Platelet Comment Cancelled 01/05/19 06:31 Anisocytosis 2+ 01/04/19 21:30 PT with INR Cancelled 01/04/19 21:17 INR Cancelled 01/04/19 21:17 PTT (Actin FS) Cancelled 01/04/19 21:17 Anticoagulation Therapy No Result Required. 01/04/19 20:00 Puncture Site Right radial 01/04/19 20:00 Patient Temperature 97.5 01/04/19 20:00 ABG pH 7.37 (7.35-7.45) 01/04/19 20:00 ABG pCO2 at Pt Temp 42.5 mmHg (35-45) 01/04/19 20:00 ABG pO2 at Pt Temp 117 mmHg (80-105) H 01/04/19 20:00 ABG HCO3 24.1 mmol/L (22-27) 01/04/19 20:00 ABG O2 Sat (Measured) 98.2 % (95-98) H 01/04/19 20:00 ABG O2 Content 14.4 % vol (15-22) L 01/04/19 20:00 ABG Base Excess -0.6 meq/l (-2-2) 01/04/19 20:00 Amrit Test Positive 01/04/19 20:00 Carboxyhemoglobin 1.4 % (0-2) 01/04/19 20:00 Methemoglobin 0.3 % (0-2) 01/04/19 20:00 O2 Delivery Device Nasal 01/04/19 20:00 Oxygen Flow Rate 3l 01/04/19 20:00 Vent Mode No Result Required. 01/04/19 20:00 Vent Rate No Result Required. 01/04/19 20:00 Mechanical Rate No Result Required. 01/04/19 20:00 Pressure Support Vent No Result Required. 01/04/19 20:00 Sodium 140 mmol/L (136-145) 01/05/19 06:31 Potassium 4.5 mmol/L (3.5-5.1) 01/05/19 06:31 Chloride 104 mmol/L (98-107) 01/05/19 06:31 Carbon Dioxide 25 mmol/L (21-32) 01/05/19 06:31 Anion Gap 10 MMOL/L (8-16) 01/05/19 06:31 BUN 47.6 mg/dL (7-18) H 01/05/19 06:31 Creatinine 1.8 mg/dL (0.55-1.3) H 01/05/19 06:31 Est GFR (CKD-EPI)AfAm 43.84 01/05/19 06:31 Est GFR (CKD-EPI)NonAf 37.83 01/05/19 06:31 Random Glucose 130 mg/dL (74-106) H 01/05/19 06:31 Lactic Acid 2.0 mmol/L (0.4-2.0) 01/05/19 08:22 Calcium 8.0 mg/dL (8.5-10.1) L 01/05/19 06:31 Magnesium 2.3 mg/dL (1.8-2.4) 01/04/19 21:17 Total Bilirubin 1.7 mg/dL (0.2-1) H 01/05/19 06:31 AST 121 U/L (15-37) H 01/05/19 06:31 ALT 155 U/L (13-61) H 01/05/19 06:31 Alkaline Phosphatase 133 U/L (45-117) H 01/05/19 06:31 Creatine Kinase 88 U/L (26-308) 01/04/19 21:17 Troponin I 0.07 ng/ml (0.00-0.05) H 01/04/19 21:17 B-Natriuretic Peptide 2280.2 pg/ml (5-125) H 01/04/19 21:30 Total Protein 5.4 g/dl (6.4-8.2) L 01/05/19 06:31 Albumin 2.4 g/dl (3.4-5.0) L 01/05/19 06:31 Urine Color Dk yellow 01/04/19 21:23 Urine Appearance Clear 01/04/19 21:23 Urine pH 5.0 (5.0-8.0) 01/04/19 21:23 Ur Specific [place] 1.016 (1.010-1.035) 01/04/19 21:23 Urine Protein 2+ (NEGATIVE) H 01/04/19 21:23 Urine Glucose (UA) Negative (NEGATIVE) 01/04/19 21:23 Urine Ketones Negative (NEGATIVE) 01/04/19 21:23 Urine Blood 1+ (NEGATIVE) H 01/04/19 21:23 Urine Nitrite Negative (NEGATIVE) 01/04/19 21:23 Urine Bilirubin 1+ (NEGATIVE) H 01/04/19 21:23 Urine Urobilinogen 1.0 mg/dL (0.2-1.0) 01/04/19 21:23 Ur Leukocyte Esterase Negative (NEGATIVE) 01/04/19 21:23 Urine WBC (Auto) 1 /hpf (0-5) 01/04/19 21:23 Urine RBC (Auto) 8 /hpf (0-4) 01/04/19 21:23 Urine Casts (Auto) 14 /lpf (0-8) 01/04/19 21:23 U Epithel Cells (Auto) 1.0 /HPF (0-5/HPF) 01/04/19 21:23 Urine Bacteria (Auto) 5.9 /hpf (NEGATIVE) 01/04/19 21:23 ECG:sinus tach, low voltage, inferolat twi echo in 10/15 Dr. Meyer: normal LV, no pericardial effusion (no other signif abnormality) cath 09/2017 nl cors echo 06/2018 nl LV function, mildly reduced RV function, borderline LA enlargement, mild MR, mild TR, RVSP nl, small pericardial effusion <1 cm, no echo indication of tamponade echo 08/2018 [facility] with definity nl LV function, mild RV dilation, mod decreased RV function, ao sclerosis, mild MR, mild TR, minimal pericardial effusion, valves not well visualized cardiac MRI 08/2018 [facility] nl LV/RV size with mild biventricular LV dysfunction, small circumfrential pericardial effusion with increased ventricular interdependence, associated delayed enhancement of pericardium, findings c/w constrictive pericarditis. 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 Newman, undergoing chemotherapy - continue lasix, increase to 40 mg IV BID - continue carvedilol, spironolactone - monitor daily weights, lytes, Cr afib - s/p ANA/CV at [facility] 08/2018, in sinus here - continue home eliquis, amiodarone, carvedilol HTN: -bp controlled -cont home meds CKD: -stable, monitor with lasix - renal consulted
[2019-01-05] MEDS: FENOFIBRIC ACID 135 MG CAP PO SCH (11:14)
[2019-01-05] MEDS: BUDESONIDE/FORMETEROL FUMARATE 80/4.5 mcg INHALER IH SCH ×2 (11:15→22:17)
[2019-01-05] MEDS: APIXABAN 5 MG TABLET PO SCH ×2 (11:15→21:25)
[2019-01-05] MEDS: FOLIC ACID 1 MG TABLET (FP) PO SCH (11:15)
[2019-01-05] MEDS: GABAPENTIN 300 MG CAPSULE (FP) PO SCH (11:15)
[2019-01-05] MEDS: CARVEDILOL 12.5 MG TABLET (FP) PO SCH ×2 (11:15→21:24)
[2019-01-05] MEDS: ATOVAQUONE 750 MG/5 ML (UNIT-DOSE PACKAGING) PO SCH (11:15)
[2019-01-05] MEDS: AMIODARONE HCL 200 MG TABLET (FP) PO SCH (11:16)
--- NOTE | 2019-01-05 12:06 | EKG ---
Test Reason : Blood Pressure : / mmHG Vent. Rate : 106 BPM Atrial Rate : 106 BPM P-R Int : 192 ms QRS Dur : 070 ms QT Int : 306 ms P-R-T Axes : 053 028 240 degrees QTc Int : 406 ms SINUS TACHYCARDIA LOW VOLTAGE QRS SEPTAL INFARCT (CITED ON OR BEFORE 11-AUG-2017) T WAVE ABNORMALITY, CONSIDER INFEROLATERAL ISCHEMIA ABNORMAL ECG WHEN COMPARED WITH ECG OF 02-SEP-2018 15:25, SINUS RHYTHM HAS REPLACED ATRIAL FIBRILLATION Confirmed by Kostas Horta ([id number]) on 01/05/2019 12:06:13 PM Referred By: Confirmed By:Kostas Horta
--- NOTE | 2019-01-05 12:24 | PN ---
Progress Note (short form) - Note Progress Note: 68 M, known mesothelioma diagnosed in 2017, constrictive pericarditis, afib, chronic diastolic HF, and DM. Admitted via the ER due to progressive shortness of breath and bilateral leg edema. Patient reports that his shortness of breath has been present for for the last few months. Over the last several days he has noted worsening edema in both lower extremities. He presented to hospital for chemotherapy and wound care and was subsequently sent to the ER for dyspnea. No recent fever or chills. No hemoptysis or night sweats. No travel history or sick contacts. Of note, the patient had a reduction in the dose of his diuretic due to worsening renal failure. Intake & Output 01/02/19 01/03/19 01/04/19 01/05/19 23:59 23:59 23:59 23:59 Weight 215 lb Last Vital Signs Temp Pulse Resp BP Pulse Ox 97.6 F 72 18 97/67 98 01/05/19 10:18 01/05/19 10:18 01/05/19 10:18 01/05/19 10:18 01/05/19 10:18 Active Medications Acetaminophen (Tylenol -) 650 mg PO Q6H PRN PRN Reason: FEVER Albuterol/Ipratropium (Duoneb -) 1 amp NEB Q4H PRN PRN Reason: SHORTNESS OF BREATH Amiodarone HCl (Cordarone -) 200 mg PO DAILY [facility] Last Admin: 01/05/19 11:16 Dose: 200 mg Amlodipine Besylate (Norvasc -) 5 mg PO DAILY [facility] Last Admin: 01/05/19 11:15 Dose: Not Given Apixaban (Eliquis -) 5 mg PO BID [facility] Last Admin: 01/05/19 11:15 Dose: 5 mg Atovaquone (Mepron -) 1,500 mg PO DAILY [facility] Last Admin: 01/05/19 11:15 Dose: 1,500 mg Budesonide/Formoterol Fumarate (Symbicort 80/4.5mcg -) 2 puff IH BID [facility] Last Admin: 01/05/19 11:15 Dose: Not Given Carvedilol (Coreg -) 12.5 mg PO BID [facility] Last Admin: 01/05/19 11:15 Dose: 12.5 mg Fenofibric Acid (Trilipix -) 135 mg PO DAILY [facility] Last Admin: 01/05/19 11:14 Dose: 135 mg Folic Acid (Folic Acid -) 1 mg PO DAILY [facility] Last Admin: 01/05/19 11:15 Dose: 1 mg Furosemide (Lasix Injection -) 40 mg IVPUSH BID@0600,1400 [facility] Gabapentin (Neurontin -) 300 mg PO DAILY [facility] Last Admin: 01/05/19 11:15 Dose: 300 mg Spironolactone (Aldactone -) 25 mg PO DAILY [facility] GENERAL: Awake, alert, mildly tachypneic at rest HEAD: Normal with no signs of trauma. EYES: sclera anicteric, conjunctiva clear. No lid lag. EARS, NOSE, THROAT: Ears normal, nares patent, oropharynx clear without exudates. Moist mucous membranes. NECK: Normal range of motion, supple without lymphadenopathy, JVD, or masses. LUNGS: bibasilar rhonchi, no wheeze HEART: Regular rate and rhythm, normal S1 and S2 without murmur, rub or gallop. ABDOMEN: Soft, (?) ascites, nontender, distended, normoactive bowel sounds, no guarding, no rebound, no masses. MUSCULOSKELETAL: Normal range of motion at all joints. No bony deformities or tenderness. No CVA tenderness. UPPER EXTREMITIES: 2+ pulses, warm, well-perfused. No cyanosis. No clubbing. Cap refill <2 seconds. No peripheral edema. LOWER EXTREMITIES: (+) 4 edema NEUROLOGICAL: Non-focal PSYCHIATRIC: Cooperative. Good eye contact. Appropriate mood and affect. SKIN: LE venous stasis Laboratory Results - last 24 hr 01/04/19 01/04/19 01/04/19 20:00 21:17 21:17 WBC RBC Hgb Hct MCV MCH MCHC RDW Plt Count MPV Absolute Neuts (auto) Neutrophils % Neutrophils % (Manual) Band Neutrophils % Lymphocytes % Lymphocytes % (Manual) Monocytes % Monocytes % (Manual) Eosinophils % Eosinophils % (Manual) Basophils % Basophils % (Manual) Nucleated RBC % Platelet Estimate Anisocytosis PT with INR Cancelled INR Cancelled PTT (Actin FS) Cancelled Anticoagulation Therapy No Result Required. Puncture Site Right radial Patient Temperature 97.5 ABG pH 7.37 ABG pCO2 at Pt Temp 42.5 ABG pO2 at Pt Temp 117 H ABG HCO3 24.1 ABG O2 Sat (Measured) 98.2 H ABG O2 Content 14.4 L ABG Base Excess -0.6 Amrit Test Positive Carboxyhemoglobin 1.4 Methemoglobin 0.3 O2 Delivery Device Nasal Oxygen Flow Rate 3l Vent Mode No Result Required. Vent Rate No Result Required. Mechanical Rate No Result Required. Pressure Support Vent No Result Required. Sodium Potassium Chloride Carbon Dioxide Anion Gap BUN Creatinine Est GFR (CKD-EPI)AfAm Est GFR (CKD-EPI)NonAf Random Glucose Lactic Acid Calcium Magnesium 2.3 Total Bilirubin AST ALT Alkaline Phosphatase Creatine Kinase 88 Troponin I 0.07 H B-Natriuretic Peptide Total Protein Albumin Urine Color Urine Appearance Urine pH Ur Specific [place] Urine Protein Urine Glucose (UA) Urine Ketones Urine Blood Urine Nitrite Urine Bilirubin Urine Urobilinogen Ur Leukocyte Esterase Urine WBC (Auto) Urine RBC (Auto) Urine Casts (Auto) U Epithel Cells (Auto) Urine Bacteria (Auto) 01/04/19 01/04/19 01/04/19 21:17 21:23 21:30 WBC 7.8 RBC 3.93 L Hgb 10.3 L Hct 32.0 L MCV 81.4 MCH 26.2 MCHC 32.2 RDW 24.4 H Plt Count 193 D MPV 8.2 Absolute Neuts (auto) 7.6 Neutrophils % 97.4 H D Neutrophils % (Manual) 89.0 H Band Neutrophils % 7.0 Lymphocytes % 1.5 L D Lymphocytes % (Manual) 3.0 L D Monocytes % 1.0 L D Monocytes % (Manual) 0 L D Eosinophils % 0.0 D Eosinophils % (Manual) 0.0 Basophils % 0.1 Basophils % (Manual) 0.0 Nucleated RBC % 4 H Platelet Estimate Adequate Anisocytosis 2+ PT with INR INR PTT (Actin FS) Anticoagulation Therapy Puncture Site Patient Temperature ABG pH ABG pCO2 at Pt Temp ABG pO2 at Pt Temp ABG HCO3 ABG O2 Sat (Measured) ABG O2 Content ABG Base Excess Amrit Test Carboxyhemoglobin Methemoglobin O2 Delivery Device Oxygen Flow Rate Vent Mode Vent Rate Mechanical Rate Pressure Support Vent Sodium Potassium Chloride Carbon Dioxide Anion Gap BUN Creatinine Est GFR (CKD-EPI)AfAm Est GFR (CKD-EPI)NonAf Random Glucose Lactic Acid 2.2 H* Calcium Magnesium Total Bilirubin AST ALT Alkaline Phosphatase Creatine Kinase Troponin I B-Natriuretic Peptide Total Protein Albumin Urine Color Dk yellow Urine Appearance Clear Urine pH 5.0 Ur Specific [place] 1.016 Urine Protein 2+ H Urine Glucose (UA) Negative Urine Ketones Negative Urine Blood 1+ H Urine Nitrite Negative Urine Bilirubin 1+ H Urine Urobilinogen 1.0 Ur Leukocyte Esterase Negative Urine WBC (Auto) 1 Urine RBC (Auto) 8 Urine Casts (Auto) 14 U Epithel Cells (Auto) 1.0 Urine Bacteria (Auto) 5.9 01/04/19 21:30 WBC RBC Hgb Hct MCV MCH MCHC RDW Plt Count MPV Absolute Neuts (auto) Neutrophils % Neutrophils % (Manual) Band Neutrophils % Lymphocytes % Lymphocytes % (Manual) Monocytes % Monocytes % (Manual) Eosinophils % Eosinophils % (Manual) Basophils % Basophils % (Manual) Nucleated RBC % Platelet Estimate Anisocytosis PT with INR INR PTT (Actin FS) Anticoagulation Therapy Puncture Site Patient Temperature ABG pH ABG pCO2 at Pt Temp ABG pO2 at Pt Temp ABG HCO3 ABG O2 Sat (Measured) ABG O2 Content ABG Base Excess Amrit Test Carboxyhemoglobin Methemoglobin O2 Delivery Device Oxygen Flow Rate Vent Mode Vent Rate Mechanical Rate Pressure Support Vent Sodium 138 Potassium 5.4 H Chloride 103 Carbon Dioxide 29 Anion Gap 6 L BUN 43.9 H Creatinine 1.7 H Est GFR (CKD-EPI)AfAm 46.98 Est GFR (CKD-EPI)NonAf 40.54 Random Glucose 124 H Lactic Acid Calcium 8.1 L Magnesium Total Bilirubin 2.4 H AST 211 H ALT 184 H Alkaline Phosphatase 173 H Creatine Kinase Troponin I B-Natriuretic Peptide 2280.2 H Total Protein 6.1 L Albumin 2.6 L Urine Color Urine Appearance Urine pH Ur Specific [place] Urine Protein Urine Glucose (UA) Urine Ketones Urine Blood Urine Nitrite Urine Bilirubin Urine Urobilinogen Ur Leukocyte Esterase Urine WBC (Auto) Urine RBC (Auto) Urine Casts (Auto) U Epithel Cells (Auto) Urine Bacteria (Auto) ASSESSMENT/PLAN: SOB due to acute decompensated heart failure History of Constrictive Pericarditis History of Mesothelioma on chemotherapy AFib on Eliquis CHF HTN Do not suspect PNA or infectious process Duiresis as tolerated Renal evaluation has been called O2 as needed Daily weights Monitor off ABX Continue Eliquis ECHO STAT to assess for pericardial effusion Will follow Thank you. Dr Morales
--- NOTE | 2019-01-05 12:43 | CONSULT ---
Consultation: CONSULT REQUEST: HEME/ONC HISTORY OF PRESENT ILLNESS: Patient is a 68 yo M with a PMHx of HTN, HLD, COPD, CHFpEF, constrictive pericarditis, mesothelioma (chemo q 2 weeks), A-fib (elqiuis, amio), presented to the ED with worsening SOB and B/L LE. Patient came to get his chemotherapy yesterday and was sent from upstairs for further evaluation. Patient said the SOB started getting worse when he was discharged from [facility]. He also says the LE edema has worsening over the last few days with clear weeping. His forming operator is Dr. Dooley. He says there was a reduction in his diuretics. He was on Torsemide and was recently changed to Lasix because of worsening renal function. Patient currently denies, chest pain, fevers, chills, nausea, vomiting , diarrhea, urinary changes, abdominal pain. Allergies: sulfa PCP: Varsha Jonesm: Oscar Cards: Soumya Onc: Trent Social: Pt denies any cigarette, alcohol, or drug use. Pt denies any recent travel or sick contacts. REVIEW OF SYSTEMS: CONSTITUTIONAL: Absent: fever, chills, diaphoresis, generalized weakness, malaise, loss of appetite, weight change HEENT: Absent: rhinorrhea, nasal congestion, throat pain, throat swelling, difficulty swallowing, mouth swelling, ear pain, eye pain, visual changes CARDIOVASCULAR: Absent: chest pain, syncope, palpitations, irregular heart rate, lightheadedness , peripheral edema RESPIRATORY: sob, casiano, orthopnea Absent: wheezing, stridor, hemoptysis GASTROINTESTINAL: Absent: abdominal pain, abdominal distension, nausea, vomiting, diarrhea, constipation, melena, hematochezia GENITOURINARY: Absent: dysuria, frequency, urgency, hesitancy, hematuria, flank pain, genital pain MUSCULOSKELETAL: Absent: myalgia, arthralgia, joint swelling, back pain, neck pain SKIN: Absent: rash, itching, pallor HEMATOLOGIC/IMMUNOLOGIC: Absent: easy bleeding, easy bruising, lymphadenopathy, frequent infections PHYSICAL EXAMINATION Vital Signs - 24 hr 01/04/19 01/04/19 01/04/19 16:53 19:12 19:57 Temperature 97.5 F L 99.8 F H Pulse Rate 82 Pulse Rate [#1] Pulse Rate [ 124 H Left] Respiratory 19 32 H Rate Respiratory Rate [#1] Blood Pressure 110/72 Blood Pressure [#1] Blood Pressure [Left] O2 Sat by Pulse 99 100 99 Oximetry (%) O2 Sat by Pulse Oximetry (%) [ #1] 01/04/19 01/04/19 01/04/19 20:00 20:10 21:21 Temperature Pulse Rate Pulse Rate [#1] Pulse Rate [ 111 H Left] Respiratory 26 H Rate Respiratory Rate [#1] Blood Pressure Blood Pressure [#1] Blood Pressure [Left] O2 Sat by Pulse 100 96 98 Oximetry (%) O2 Sat by Pulse Oximetry (%) [ #1] 01/04/19 01/04/19 01/05/19 22:30 23:00 00:30 Temperature Pulse Rate Pulse Rate [#1] Pulse Rate [ 110 H 107 H 95 H Left] Respiratory 27 H 25 H 21 H Rate Respiratory Rate [#1] Blood Pressure Blood Pressure [#1] Blood Pressure 122/76 107/68 105/69 [Left] O2 Sat by Pulse 97 100 97 Oximetry (%) O2 Sat by Pulse Oximetry (%) [ #1] 01/05/19 01/05/19 01/05/19 02:47 04:44 06:08 Temperature 98.4 F Pulse Rate Pulse Rate [#1] 110 H Pulse Rate [ 86 69 Left] Respiratory 23 H 14 Rate Respiratory 20 Rate [#1] Blood Pressure Blood Pressure 122/70 [#1] Blood Pressure 107/78 [Left] O2 Sat by Pulse 95 97 Oximetry (%) O2 Sat by Pulse 98 Oximetry (%) [ #1] 01/05/19 01/05/19 01/05/19 06:44 06:45 10:18 Temperature 97.6 F Pulse Rate Pulse Rate [#1] Pulse Rate [ 75 72 Left] Respiratory 19 18 Rate Respiratory Rate [#1] Blood Pressure Blood Pressure [#1] Blood Pressure 105/75 97/67 [Left] O2 Sat by Pulse 100 100 98 Oximetry (%) O2 Sat by Pulse Oximetry (%) [ #1] GENERAL: NAD, mildly dyspneic at rest. Saturating 100% on 3L NC HEAD: Normal with no signs of trauma. EYES:extraocular movements intact, sclera anicteric, conjunctiva clear. EARS, NOSE, THROAT: oropharynx clear without exudates. Moist mucous membranes. NECK: supple without lymphadenopathy, JVD, or masses. LUNGS: bibasilar rhonchi HEART: Regular rate, normal S1 and S2 without murmur, rub or gallop. ABDOMEN: obese, Soft, nontender, not distended, normoactive bowel sounds, no guarding, no rebound, no masses. No hepatomegaly or splenomegaly. LOWER EXTREMITIES: 2+ pulses, warm, 3+edema b/l past the knees. Tender to palpation. weeping. NEUROLOGICAL: Cranial nerves II-XII intact. Normal speech TESTES: no discharge, no tenderness, no palpable masses Laboratory Results - last 24 hr 01/04/19 01/04/19 01/04/19 20:00 21:17 21:17 WBC Corrected WBC (auto) RBC Hgb Hct MCV MCH MCHC RDW Plt Count MPV Absolute Neuts (auto) Neutrophils % Neutrophils % (Manual) Band Neutrophils % Lymphocytes % Lymphocytes % (Manual) Monocytes % Monocytes % (Manual) Eosinophils % Eosinophils % (Manual) Basophils % Basophils % (Manual) Nucleated RBC % Platelet Estimate Platelet Comment Anisocytosis PT with INR Cancelled INR Cancelled PTT (Actin FS) Cancelled Anticoagulation Therapy No Result Required. Puncture Site Right radial Patient Temperature 97.5 ABG pH 7.37 ABG pCO2 at Pt Temp 42.5 ABG pO2 at Pt Temp 117 H ABG HCO3 24.1 ABG O2 Sat (Measured) 98.2 H ABG O2 Content 14.4 L ABG Base Excess -0.6 Amrit Test Positive Carboxyhemoglobin 1.4 Methemoglobin 0.3 O2 Delivery Device Nasal Oxygen Flow Rate 3l Vent Mode No Result Required. Vent Rate No Result Required. Mechanical Rate No Result Required. Pressure Support Vent No Result Required. Sodium Potassium Chloride Carbon Dioxide Anion Gap BUN Creatinine Est GFR (CKD-EPI)AfAm Est GFR (CKD-EPI)NonAf Random Glucose Lactic Acid Calcium Magnesium 2.3 Total Bilirubin AST ALT Alkaline Phosphatase Creatine Kinase 88 Troponin I 0.07 H B-Natriuretic Peptide Total Protein Albumin Urine Color Urine Appearance Urine pH Ur Specific [place] Urine Protein Urine Glucose (UA) Urine Ketones Urine Blood Urine Nitrite Urine Bilirubin Urine Urobilinogen Ur Leukocyte Esterase Urine WBC (Auto) Urine RBC (Auto) Urine Casts (Auto) U Epithel Cells (Auto) Urine Bacteria (Auto) 01/04/19 01/04/19 01/04/19 21:17 21:23 21:30 WBC 7.8 Corrected WBC (auto) RBC 3.93 L Hgb 10.3 L Hct 32.0 L MCV 81.4 MCH 26.2 MCHC 32.2 RDW 24.4 H Plt Count 193 D MPV 8.2 Absolute Neuts (auto) 7.6 Neutrophils % 97.4 H D Neutrophils % (Manual) 89.0 H Band Neutrophils % 7.0 Lymphocytes % 1.5 L D Lymphocytes % (Manual) 3.0 L D Monocytes % 1.0 L D Monocytes % (Manual) 0 L D Eosinophils % 0.0 D Eosinophils % (Manual) 0.0 Basophils % 0.1 Basophils % (Manual) 0.0 Nucleated RBC % 4 H Platelet Estimate Adequate Platelet Comment Anisocytosis 2+ PT with INR INR PTT (Actin FS) Anticoagulation Therapy Puncture Site Patient Temperature ABG pH ABG pCO2 at Pt Temp ABG pO2 at Pt Temp ABG HCO3 ABG O2 Sat (Measured) ABG O2 Content ABG Base Excess Amrit Test Carboxyhemoglobin Methemoglobin O2 Delivery Device Oxygen Flow Rate Vent Mode Vent Rate Mechanical Rate Pressure Support Vent Sodium Potassium Chloride Carbon Dioxide Anion Gap BUN Creatinine Est GFR (CKD-EPI)AfAm Est GFR (CKD-EPI)NonAf Random Glucose Lactic Acid 2.2 H* Calcium Magnesium Total Bilirubin AST ALT Alkaline Phosphatase Creatine Kinase Troponin I B-Natriuretic Peptide Total Protein Albumin Urine Color Dk yellow Urine Appearance Clear Urine pH 5.0 Ur Specific [place] 1.016 Urine Protein 2+ H Urine Glucose (UA) Negative Urine Ketones Negative Urine Blood 1+ H Urine Nitrite Negative Urine Bilirubin 1+ H Urine Urobilinogen 1.0 Ur Leukocyte Esterase Negative Urine WBC (Auto) 1 Urine RBC (Auto) 8 Urine Casts (Auto) 14 U Epithel Cells (Auto) 1.0 Urine Bacteria (Auto) 5.9 01/04/19 01/05/19 01/05/19 21:30 06:31 06:31 WBC Cancelled Corrected WBC (auto) Cancelled RBC Cancelled Hgb Cancelled Hct Cancelled MCV Cancelled MCH Cancelled MCHC Cancelled RDW Cancelled Plt Count Cancelled MPV Cancelled Absolute Neuts (auto) Cancelled Neutrophils % Cancelled Neutrophils % (Manual) Band Neutrophils % Lymphocytes % Cancelled Lymphocytes % (Manual) Monocytes % Cancelled Monocytes % (Manual) Eosinophils % Cancelled Eosinophils % (Manual) Basophils % Cancelled Basophils % (Manual) Nucleated RBC % Cancelled Platelet Estimate Cancelled Platelet Comment Cancelled Anisocytosis PT with INR INR PTT (Actin FS) Anticoagulation Therapy Puncture Site Patient Temperature ABG pH ABG pCO2 at Pt Temp ABG pO2 at Pt Temp ABG HCO3 ABG O2 Sat (Measured) ABG O2 Content ABG Base Excess Amrit Test Carboxyhemoglobin Methemoglobin O2 Delivery Device Oxygen Flow Rate Vent Mode Vent Rate Mechanical Rate Pressure Support Vent Sodium 138 140 Potassium 5.4 H 4.5 Chloride 103 104 Carbon Dioxide 29 25 Anion Gap 6 L 10 BUN 43.9 H 47.6 H Creatinine 1.7 H 1.8 H Est GFR (CKD-EPI)AfAm 46.98 43.84 Est GFR (CKD-EPI)NonAf 40.54 37.83 Random Glucose 124 H 130 H Lactic Acid Calcium 8.1 L 8.0 L Magnesium Total Bilirubin 2.4 H 1.7 H AST 211 H 121 H ALT 184 H 155 H Alkaline Phosphatase 173 H 133 H Creatine Kinase Troponin I B-Natriuretic Peptide 2280.2 H Total Protein 6.1 L 5.4 L Albumin 2.6 L 2.4 L Urine Color Urine Appearance Urine pH Ur Specific [place] Urine Protein Urine Glucose (UA) Urine Ketones Urine Blood Urine Nitrite Urine Bilirubin Urine Urobilinogen Ur Leukocyte Esterase Urine WBC (Auto) Urine RBC (Auto) Urine Casts (Auto) U Epithel Cells (Auto) Urine Bacteria (Auto) 01/05/19 08:22 WBC Corrected WBC (auto) RBC Hgb Hct MCV MCH MCHC RDW Plt Count MPV Absolute Neuts (auto) Neutrophils % Neutrophils % (Manual) Band Neutrophils % Lymphocytes % Lymphocytes % (Manual) Monocytes % Monocytes % (Manual) Eosinophils % Eosinophils % (Manual) Basophils % Basophils % (Manual) Nucleated RBC % Platelet Estimate Platelet Comment Anisocytosis PT with INR INR PTT (Actin FS) Anticoagulation Therapy Puncture Site Patient Temperature ABG pH ABG pCO2 at Pt Temp ABG pO2 at Pt Temp ABG HCO3 ABG O2 Sat (Measured) ABG O2 Content ABG Base Excess Amrit Test Carboxyhemoglobin Methemoglobin O2 Delivery Device Oxygen Flow Rate Vent Mode Vent Rate Mechanical Rate Pressure Support Vent Sodium Potassium Chloride Carbon Dioxide Anion Gap BUN Creatinine Est GFR (CKD-EPI)AfAm Est GFR (CKD-EPI)NonAf Random Glucose Lactic Acid 2.0 Calcium Magnesium Total Bilirubin AST ALT Alkaline Phosphatase Creatine Kinase Troponin I B-Natriuretic Peptide Total Protein Albumin Urine Color Urine Appearance Urine pH Ur Specific [place] Urine Protein Urine Glucose (UA) Urine Ketones Urine Blood Urine Nitrite Urine Bilirubin Urine Urobilinogen Ur Leukocyte Esterase Urine WBC (Auto) Urine RBC (Auto) Urine Casts (Auto) U Epithel Cells (Auto) Urine Bacteria (Auto) Active Medications Generic Name Dose Route Start Last Admin Trade Name Freq PRN Reason Stop Dose Admin Acetaminophen 650 mg 01/04/19 21:51 Tylenol - PO Q6H PRN FEVER Albuterol/Ipratropium 1 amp 01/04/19 21:52 Duoneb - NEB Q4H PRN SHORTNESS OF BREATH Amiodarone HCl 200 mg 01/05/19 10:00 01/05/19 11:16 Cordarone - PO 200 mg DAILY [facility] Administration Amlodipine Besylate 5 mg 01/05/19 10:00 01/05/19 11:15 Norvasc - PO Not Given DAILY [facility] Apixaban 5 mg 01/04/19 22:00 01/05/19 11:15 Eliquis - PO 5 mg BID [facility] Administration Atovaquone 1,500 mg 01/05/19 10:00 01/05/19 11:15 Mepron - PO 1,500 mg DAILY [facility] Administration Budesonide/Formoterol Fumarate 2 puff 01/04/19 22:00 01/05/19 11:15 Symbicort 80/4.5mcg - IH Not Given BID [facility] Carvedilol 12.5 mg 01/04/19 22:00 01/05/19 11:15 Coreg - PO 12.5 mg BID [facility] Administration Fenofibric Acid 135 mg 01/05/19 10:00 01/05/19 11:14 Trilipix - PO 135 mg DAILY [facility] Administration Folic Acid 1 mg 01/05/19 10:00 01/05/19 11:15 Folic Acid - PO 1 mg DAILY [facility] Administration Furosemide 40 mg 01/05/19 14:00 Lasix Injection - IVPUSH BID@0600,1400 [facility] Gabapentin 300 mg 01/05/19 10:00 01/05/19 11:15 Neurontin - PO 300 mg DAILY [facility] Administration Spironolactone 25 mg 01/06/19 10:00 Aldactone - PO DAILY [facility] ASSESSMENT/PLAN: #SOB/Edema #Malignant Mesothelioma--- s/p VATS, s/P alimta, carboplatinum, s/p nivolumab with progressive disease #Pericarditis #CKD #CHF #A-fib -Started on gemcitibine because of progressive disease in lung , pleura, pericardium. -Recently completed 6 weeks of tapering steroids for immunotherapy related lung , cardiac, and renal disease. -currently being diuresed. monitor Cr Dispo: We will continue to follow the patient. Thank you for this consultative opportunity. Visit type - Emergency Visit Emergency Visit: Yes ED Registration Date: 01/04/19 Care time: The patient presented to the Emergency Department on the above date and was hospitalized for further evaluation of their emergent condition. - New Patient This patient is new to me today: Yes Date on this admission: 01/06/19 - Critical Care Critical Care patient: No ATTENDING PHYSICIAN STATEMENT I saw and evaluated the patient. I reviewed the resident's note and discussed the case with the resident. I agree with the resident's findings and plan as documented. SUBJECTIVE: OBJECTIVE: ASSESSMENT AND PLAN:
--- NOTE | 2019-01-05 13:47 | CONSULT ---
Consult Consult Specialty:: Nephrology Reason for Consultation:: CKD - History of Present Illness Chief Complaint: worsening edema and shortness of breath History of Present Illness: Pt is a 68 year old male with pmhx of mesothelioma, a-fib, copd, and CKD who presents from chemo for worsening lower ext edema and shortness of breath. He was found to have elevated creatinine and I was called to evaluate him. He was on torsemide as outpt. He says that the edema is getting worse. He also complains of shortness of breath with minimal exertion. He denies dysuria or hematuria. He denies nsaid use. 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 His diuretics wer decreases as outpt secondary to worsening renal failure. 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 History of Recent Travel: No Home Medications - Allergies Allergies/Adverse Reactions: Allergies Allergy/AdvReac Type Severity Reaction Status Date / Time sulfur [From Sulfur-8] Allergy Mild Rash Verified 01/04/19 16:56 - Home Medications Home Medications: Ambulatory Orders Amlodipine Besylate [Norvasc -] 5 mg PO DAILY 08/11/17 Carvedilol 12.5 mg PO BID 08/11/17 Fenofibrate [Lipofen] 160 mg PO DAILY 08/11/17 Folic Acid 1 mg PO DAILY 08/11/17 Omeprazole Magnesium [Prilosec Otc] 20 mg PO ONCE 08/11/17 Budesonide/Formeterol Fumarate [SYMBICORT 80/4.5mcg -] 2 inh IH BID 07/12/18 Ipratropium/Albuterol Sulfate [Combivent Respimat 20-100 Mcg] 4 gm IH BID Albuterol 2.5/Ipratropium 0.5 [Duoneb -] 1 neb IH QID PRN #3 vial.neb. 07/20/18 Apixaban [Eliquis] 5 mg PO BID #60 tablet 07/20/18 Nebulizer [Compact Ultrasonic Nebulizer] 1 each MC DAILY PRN #1 each 07/20/18 Potassium Chloride 20 meq PO DAILY 09/02/18 Amiodarone HCl [Cordarone -] 200 mg PO DAILY 12/28/18 Atovaquone [Mepron -] 1,500 mg PO DAILY 12/28/18 Fluconazole [Diflucan -] 100 mg PO DAILY 12/28/18 Gabapentin [Neurontin -] 300 mg PO DAILY 12/28/18 L.acidoph,Paracasei, B.lactis [Probiotic] 1 tab PO ASDIR 12/28/18 Nystatin 100,000 unit PO QID 12/28/18 Prednisone 5 mg PO ASDIR 12/28/18 hydrOXYzine HCL [Atarax -] 10 mg PO TID 12/28/18 Family Disease History - Family Disease History Family Disease History: Other: Father (Unknown medical conditions), Mother ( Alive, CVA), Brother (1, HTN), Sister (1, HTN), Son (2, healthy), Daughter (1, healthy) Review of Systems - Review of Systems Constitutional: reports: Malaise Eyes: reports: No Symptoms HENT: reports: No Symptoms Neck: reports: No Symptoms Cardiovascular: reports: Edema, Shortness of Breath Respiratory: reports: SOB, SOB on Exertion Gastrointestinal: reports: No Symptoms Genitourinary: reports: No Symptoms Musculoskeletal: reports: No Symptoms Integumentary: reports: No Symptoms Neurological: reports: No Symptoms Endocrine: reports: No Symptoms Hematology/Lymphatic: reports: No Symptoms Psychiatric: reports: No Symptoms Physical Exam Vital Signs: Vital Signs Temperature 97.6 F 01/05/19 10:18 Pulse Rate 72 01/05/19 10:18 Respiratory Rate 18 01/05/19 10:18 Blood Pressure 97/67 01/05/19 10:18 O2 Sat by Pulse Oximetry (%) 98 01/05/19 10:18 Constitutional: Yes: Calm Eyes: Yes: Conjunctiva Clear HENT: Yes: Atraumatic Cardiovascular: Yes: S1, S2 Respiratory: Yes: On Nasal O2, Rhonchi Gastrointestinal: Yes: Soft Renal/: Yes: WNL Musculoskeletal: Yes: WNL Edema: Yes Edema: LLE: 2+, RLE: 2+ Neurological: Yes: Oriented Psychiatric: Yes: Oriented Labs: CBC, BMP 01/05/19 06:31 01/05/19 06:31 Laboratory Tests 08/19/18 08/31/18 09/02/18 10:00 09:50 15:38 WBC Hgb Potassium Creatinine 1.5 H 1.5 H 1.8 H Lactic Acid 09/03/18 09/05/18 09/12/18 06:00 09:35 11:19 WBC Hgb Potassium Creatinine 1.7 H 1.4 H 1.8 H Lactic Acid 09/13/18 09/14/18 10/06/18 05:30 06:35 12:33 WBC Hgb Potassium Creatinine 1.9 H 1.6 H 2.7 H Lactic Acid 11/16/18 12/28/18 01/04/19 08:49 08:35 11:15 WBC Hgb Potassium Creatinine 3.2 H 2.1 H 1.8 H Lactic Acid 01/04/19 01/04/19 01/04/19 21:17 21:30 21:30 WBC 7.8 Hgb 10.3 L Potassium 5.4 H Creatinine 1.7 H Lactic Acid 2.2 H* 01/05/19 01/05/19 06:31 08:22 WBC Hgb Potassium 4.5 Creatinine 1.8 H Lactic Acid 2.0 Imaging - Results Chest X-ray: Report Reviewed Problem List - Problems (1) CKD (chronic kidney disease) Code(s): N18.9 - CHRONIC KIDNEY DISEASE, UNSPECIFIED (2) COPD (chronic obstructive pulmonary disease) Code(s): J44.9 - CHRONIC OBSTRUCTIVE PULMONARY DISEASE, UNSPECIFIED Qualifiers: COPD type: unspecified COPD Qualified Code(s): J44.9 - Chronic obstructive pulmonary disease, unspecified (3) Mesothelioma (pleural) Code(s): C45.0 - MESOTHELIOMA OF PLEURA (4) Pedal edema Code(s): R60.0 - LOCALIZED EDEMA Assessment/Plan Current Medications Generic Name Dose Route Start Last Admin Trade Name Freq PRN Reason Stop Dose Admin Acetaminophen 650 mg 01/04/19 21:51 Tylenol - PO Q6H PRN FEVER Albuterol/Ipratropium 1 amp 01/04/19 21:52 Duoneb - NEB Q4H PRN SHORTNESS OF BREATH Amiodarone HCl 200 mg 01/05/19 10:00 01/05/19 11:16 Cordarone - PO 200 mg DAILY [facility] Administration Amlodipine Besylate 5 mg 01/05/19 10:00 01/05/19 11:15 Norvasc - PO Not Given DAILY [facility] Apixaban 5 mg 01/04/19 22:00 01/05/19 11:15 Eliquis - PO 5 mg BID [facility] Administration Atovaquone 1,500 mg 01/05/19 10:00 01/05/19 11:15 Mepron - PO 1,500 mg DAILY [facility] Administration Budesonide/Formoterol Fumarate 2 puff 01/04/19 22:00 01/05/19 11:15 Symbicort 80/4.5mcg - IH Not Given BID [facility] Carvedilol 12.5 mg 01/04/19 22:00 01/05/19 11:15 Coreg - PO 12.5 mg BID [facility] Administration Fenofibric Acid 135 mg 01/05/19 10:00 01/05/19 11:14 Trilipix - PO 135 mg DAILY [facility] Administration Folic Acid 1 mg 01/05/19 10:00 01/05/19 11:15 Folic Acid - PO 1 mg DAILY [facility] Administration Furosemide 40 mg 01/05/19 14:00 Lasix Injection - IVPUSH BID@0600,1400 [facility] Gabapentin 300 mg 01/05/19 10:00 01/05/19 11:15 Neurontin - PO 300 mg DAILY [facility] Administration Spironolactone 25 mg 01/06/19 10:00 Aldactone - PO DAILY [facility] Impression 1. CKD 2. mesothelioma 3. HTN 4. hyperkalemia 5. a-fib 6. anemia Plan - check renal ultrasound - potassium improved - will send renal workup - stop amlodipine - stop aldactone if potassium elevated tomorrow - pt volume overloaded - cardio input appreciated - cont lasix
[2019-01-05] MEDS: FUROSEMIDE 40 MG/4 ML INJECTABLE VIAL IVPUSH SCH (14:30)
--- NOTE | 2019-01-05 15:35 | PN ---
Progress Note, Physician History of Present Illness: feeling better - Current Medication List Current Medications: Active Medications Acetaminophen (Tylenol -) 650 mg PO Q6H PRN PRN Reason: FEVER Albuterol/Ipratropium (Duoneb -) 1 amp NEB Q4H PRN PRN Reason: SHORTNESS OF BREATH Amiodarone HCl (Cordarone -) 200 mg PO DAILY [facility] Last Admin: 01/05/19 11:16 Dose: 200 mg Apixaban (Eliquis -) 5 mg PO BID [facility] Last Admin: 01/05/19 11:15 Dose: 5 mg Atovaquone (Mepron -) 1,500 mg PO DAILY [facility] Last Admin: 01/05/19 11:15 Dose: 1,500 mg Budesonide/Formoterol Fumarate (Symbicort 80/4.5mcg -) 2 puff IH BID [facility] Last Admin: 01/05/19 11:15 Dose: Not Given Carvedilol (Coreg -) 12.5 mg PO BID [facility] Last Admin: 01/05/19 11:15 Dose: 12.5 mg Fenofibric Acid (Trilipix -) 135 mg PO DAILY [facility] Last Admin: 01/05/19 11:14 Dose: 135 mg Folic Acid (Folic Acid -) 1 mg PO DAILY [facility] Last Admin: 01/05/19 11:15 Dose: 1 mg Furosemide (Lasix Injection -) 40 mg IVPUSH BID@0600,1400 [facility] Last Admin: 01/05/19 14:30 Dose: 40 mg Gabapentin (Neurontin -) 300 mg PO DAILY [facility] Last Admin: 01/05/19 11:15 Dose: 300 mg Spironolactone (Aldactone -) 25 mg PO DAILY [facility] - Objective Vital Signs: Vital Signs Temperature 97.6 F 01/05/19 10:18 Pulse Rate 72 01/05/19 10:18 Respiratory Rate 18 01/05/19 10:18 Blood Pressure 97/67 01/05/19 10:18 O2 Sat by Pulse Oximetry (%) 98 01/05/19 10:18 Constitutional: Yes: Calm HENT: Yes: Atraumatic Neck: Yes: Supple Cardiovascular: Yes: Regular Rate and Rhythm Respiratory: Yes: Rhonchi, Wheezes Gastrointestinal: Yes: Normal Bowel Sounds Extremities: Yes: WNL Edema: Yes Edema: LLE: 2+, RLE: 2+ Neurological: Yes: Alert, Oriented Labs: CBC, BMP 01/05/19 06:31 01/05/19 06:31 INR, PTT INR Cancelled 01/04/19 21:17 Problem List - Problems (1) Pedal edema Assessment/Plan: on diuretics Code(s): R60.0 - LOCALIZED EDEMA (2) CYNDIE (acute kidney injury) Code(s): N17.9 - ACUTE KIDNEY FAILURE, UNSPECIFIED (3) Acute diastolic heart failure Code(s): I50.31 - ACUTE DIASTOLIC (CONGESTIVE) HEART FAILURE (4) Afib Assessment/Plan: on meds on AC Code(s): I48.91 - UNSPECIFIED ATRIAL FIBRILLATION (5) CHF exacerbation Code(s): I50.9 - HEART FAILURE, UNSPECIFIED Qualifiers: Heart failure type: unspecified Qualified Code(s): I50.9 - Heart failure, unspecified (6) COPD (chronic obstructive pulmonary disease) Assessment/Plan: prn nebs and oxygen Code(s): J44.9 - CHRONIC OBSTRUCTIVE PULMONARY DISEASE, UNSPECIFIED Qualifiers: COPD type: unspecified COPD Qualified Code(s): J44.9 - Chronic obstructive pulmonary disease, unspecified (7) HTN (hypertension) Code(s): I10 - ESSENTIAL (PRIMARY) HYPERTENSION (8) Mesothelioma (pleural) Code(s): C45.0 - MESOTHELIOMA OF PLEURA
--- NOTE | 2019-01-05 20:02 | CON.ID ---
Consult Consult Specialty:: infectious diseases Referred by:: Reason for Consultation:: r/opneumonia,sob,cough - History of Present Illness Chief Complaint: sob,fatigue,weakness History of Present Illness: 68 year old male, with a significant PMH of mesothilioma, Afib (on Eliquis), COPD, chronic kidney disease, who presents from chemo upstairs to the emergency department for evaluation of increasing respiratory distress and worsening bilateral lower extremity edema up to the waist. patient mentions he is very fatigued and very tired and falling asleep mentions he has no energy has accumulated fluid - History Source History Provided By: Patient, Medical Record Limitations to Obtaining History: Clinical Condition - Past Medical History Cardio/Vascular: Yes: CHF, HTN, Hyperlipdemia Pulmonary: Yes: Asthma Renal/: Yes: Renal Inusuff - Alcohol/Substance Use Hx Alcohol Use: No History of Substance Use: reports: None - Smoking History Smoking history: Never smoked Have you smoked in the past 12 months: No If you are a former smoker, when did you quit?: 8 years - Social History Usual Living Arrangement: Alone ADL: Independent 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 History of Recent Travel: No Home Medications - Allergies Allergies/Adverse Reactions: Allergies Allergy/AdvReac Type Severity Reaction Status Date / Time sulfur [From Sulfur-8] Allergy Mild Rash Verified 01/04/19 16:56 - Home Medications Home Medications: Ambulatory Orders RX: Amlodipine Besylate [Norvasc -] 5 mg PO DAILY 08/11/17 RX: Carvedilol 6.25 mg PO BID 08/11/17 RX: Fenofibrate [Lipofen] 160 mg PO DAILY 08/11/17 RX: Folic Acid 1 mg PO DAILY 08/11/17 RX: Omeprazole Magnesium [Prilosec Otc] 20 mg PO ONCE 08/11/17 RX: Budesonide/Formeterol Fumarate [SYMBICORT 80/4.5mcg -] 2 inh IH BID RX: Ipratropium/Albuterol Sulfate [Combivent Respimat 20-100 Mcg] 4 gm IH BID Albuterol 2.5/Ipratropium 0.5 [Duoneb -] 1 neb IH QID PRN #3 vial.neb. 07/20/18 RX: Apixaban [Eliquis] 5 mg PO BID #60 tablet 07/20/18 RX: Nebulizer [Compact Ultrasonic Nebulizer] 1 each [facility] DAILY PRN #1 each RX: Potassium Chloride 20 meq PO DAILY 09/02/18 Amiodarone HCl [Cordarone -] 200 mg PO DAILY 12/28/18 Atovaquone [Mepron -] 1,500 mg PO DAILY 12/28/18 Fluconazole [Diflucan -] 100 mg PO DAILY 12/28/18 L.acidoph,Paracasei, B.lactis [Probiotic] 1 tab PO ASDIR 12/28/18 RX: Gabapentin [Neurontin -] 300 mg PO DAILY 12/28/18 RX: Nystatin 100,000 unit PO QID 12/28/18 RX: Prednisone 5 mg PO ASDIR 12/28/18 hydrOXYzine HCL [Atarax -] 10 mg PO TID 12/28/18 Family Disease History - Family Disease History Family Disease History: Other: Father (Unknown medical conditions), Mother ( Alive, CVA), Brother (1, HTN), Sister (1, HTN), Son (2, healthy), Daughter (1, healthy) Review of Systems - Review of Systems Constitutional: reports: Weakness Eyes: reports: No Symptoms HENT: reports: No Symptoms Neck: reports: No Symptoms Cardiovascular: reports: No Symptoms Respiratory: reports: Cough, SOB, SOB on Exertion Gastrointestinal: reports: No Symptoms Musculoskeletal: reports: No Symptoms Integumentary: reports: No Symptoms Neurological: reports: Weakness Endocrine: reports: No Symptoms Hematology/Lymphatic: reports: No Symptoms Psychiatric: reports: No Symptoms Physical Exam Vital Signs: Vital Signs Temperature 98.3 F 01/05/19 17:00 Pulse Rate 78 01/05/19 17:00 Respiratory Rate 20 01/05/19 17:00 Blood Pressure 107/66 01/05/19 17:00 O2 Sat by Pulse Oximetry (%) 98 01/05/19 17:00 Constitutional: Yes: Moderate Distress, Other Eyes: Yes: Conjunctiva Clear Cardiovascular: Yes: Pulse Irregular Respiratory: Yes: On Nasal O2, Poor Air Entry (at the bases) Gastrointestinal: Yes: Normal Bowel Sounds, Soft, Ascites, Other Musculoskeletal: Yes: WNL Extremities: Yes: Other Edema: LLE: 2+, RLE: 2+ Neurological: Yes: Alert Psychiatric: Yes: Alert Labs: CBC, BMP 01/05/19 06:31 01/05/19 06:31 Imaging - Results Chest X-ray: Report Reviewed, Image Reviewed Ultrasound: Report Reviewed, Image Reviewed Assessment/Plan SOB due History of Constrictive Pericarditis History of Mesothelioma AFib CHF HTN i think patients condition is because of is chemo and i am worried if it is due to cardiac i have a low suspicion of pneumonia will not start on abx and watch await for all cx rest as per the team consider diuresis rest as er the team
--- NOTE | 2019-01-05 20:46 | PN ---
Teaching Attending Note Name of Resident: Shelton Gandara ATTENDING PHYSICIAN STATEMENT I saw and evaluated the patient. I reviewed the resident's note and discussed the case with the resident. I agree with the resident's findings and plan as documented. SUBJECTIVE: Currently sleeping Patient with malignant mesothelioma - s/p VATS, s/P alimta, carboplatinum, s/p nivolumab with progressive disease. Started on gemcitibine because of progressive disease in lung , pleura, pericardium. SOB with dyspnea CYNDIE/CKD Significant weeping LE edema. Previous attempts at diuresis with IV diuretics, lasix, torsemide- worsened kidney disease. Would ask cardiology to follow up Recently completed 6 weeks of tapering steroids for immunotherapy related lung, cardiac, and renal disease. Will hopefully be able to diurese and not significantly compromise kidneys. Would ask wound care to follow up LE's. OBJECTIVE: ASSESSMENT AND PLAN:
[2019-01-06] MEDS: ALBUTEROL SO4 2.5/IPRATROPIUM 0.5 INH SOL 3 ML VIAL.NEB. NEB PRN (05:25)
[2019-01-06] MEDS: FUROSEMIDE 40 MG/4 ML INJECTABLE VIAL IVPUSH SCH ×2 (06:30→13:14)
[2019-01-06 08:16] LABS: ALBUMIN 2.4 g/dl (3.4-5.0); BILIRUBIN,TOTAL 1.5 mg/dL (0.2-1); BLOOD UREA NITROGEN 59.7 mg/dL (7-18); CREATININE 1.9 mg/dL (0.55-1.3); TOT PROT 5.5 g/dl (6.4-8.2)
[2019-01-06] MEDS ORDERED: SPIRONOLACTONE 25 MG TABLET (FP) PO SCH (10:00)
[2019-01-06] MEDS: FENOFIBRIC ACID 135 MG CAP PO SCH (10:12)
[2019-01-06] MEDS: CARVEDILOL 12.5 MG TABLET (FP) PO SCH ×2 (10:13→22:17)
[2019-01-06] MEDS: GABAPENTIN 300 MG CAPSULE (FP) PO SCH (10:13)
[2019-01-06] MEDS: BUDESONIDE/FORMETEROL FUMARATE 80/4.5 mcg INHALER IH SCH ×2 (10:13→22:17)
[2019-01-06] MEDS: ATOVAQUONE 750 MG/5 ML (UNIT-DOSE PACKAGING) PO SCH (10:13)
[2019-01-06] MEDS: AMIODARONE HCL 200 MG TABLET (FP) PO SCH (10:13)
[2019-01-06] MEDS: APIXABAN 5 MG TABLET PO SCH ×2 (10:13→22:17)
[2019-01-06] MEDS: FOLIC ACID 1 MG TABLET (FP) PO SCH (10:13)
--- NOTE | 2019-01-06 11:07 | PN ---
Progress Note (short form) - Note Progress Note: s: still short of breath, edema unchanged. no chest pain, palps, dizziness no cigs Current Medications Acetaminophen (Tylenol -) 650 mg PO Q6H PRN PRN Reason: FEVER Albuterol/Ipratropium (Duoneb -) 1 amp NEB Q4H PRN PRN Reason: SHORTNESS OF BREATH Last Admin: 01/06/19 05:25 Dose: 1 amp Amiodarone HCl (Cordarone -) 200 mg PO DAILY [facility] Last Admin: 01/06/19 10:13 Dose: 200 mg Apixaban (Eliquis -) 5 mg PO BID [facility] Last Admin: 01/06/19 10:13 Dose: 5 mg Atovaquone (Mepron -) 1,500 mg PO DAILY [facility] Last Admin: 01/06/19 10:13 Dose: 1,500 mg Budesonide/Formoterol Fumarate (Symbicort 80/4.5mcg -) 2 puff IH BID [facility] Last Admin: 01/06/19 10:13 Dose: 2 puff Carvedilol (Coreg -) 12.5 mg PO BID [facility] Last Admin: 01/06/19 10:13 Dose: 12.5 mg Fenofibric Acid (Trilipix -) 135 mg PO DAILY [facility] Last Admin: 01/06/19 10:12 Dose: 135 mg Folic Acid (Folic Acid -) 1 mg PO DAILY [facility] Last Admin: 01/06/19 10:13 Dose: 1 mg Furosemide (Lasix Injection -) 80 mg IVPUSH BID@0600,1400 [facility] Gabapentin (Neurontin -) 300 mg PO DAILY [facility] Last Admin: 01/06/19 10:13 Dose: 300 mg Vital Signs Period Temp Pulse Resp BP Sys/Clements Pulse Ox Last 24 Hr 97.7 F-98.3 F 65-78 18-22 107-164/63-86 98-100 Constitutional: Yes: Well Nourished, No Distress Eyes: No: Sclera Icterus HENT: No: Nasal Congestion Neck: No: Decreased ROM Respiratory: Yes: CTA Bilaterally, Diminished (bases). Gastrointestinal: Yes: Normal Bowel Sounds, Distention. No: Hepatomegaly, Palpable Mass, Tenderness Cardiovascular: Yes: Regular Rate and Rhythm JVD: No Carotid Bruit: No PMI: Non-Displaced Heart Sounds: Yes: S1, S2. No: Gallop Murmur: No: Systolic Murmur, Diastolic Murmur Extremities: No: Cool, Cyanosis Edema: 2+ cristian lower ext edema Peripheral Pulses: 2+ Left Carotid, 2+ Right Carotid, 2+ Left Doralis Pedis, 2+ Right Dorsalis Pedis Integumentary: No: Jaundice Neurological: Yes: Alert, Oriented (x3) Psychiatric: No: Agitated ECG:sinus tach, low voltage, inferolat twi echo in 10/15 Dr. Meyer: normal LV, no pericardial effusion (no other signif abnormality) cath 09/2017 nl cors echo 06/2018 nl LV function, mildly reduced RV function, borderline LA enlargement, mild MR, mild TR, RVSP nl, small pericardial effusion <1 cm, no echo indication of tamponade echo 08/2018 [facility] [place] with definity nl LV function, mild RV dilation, mod decreased RV function, ao sclerosis, mild MR, mild TR, minimal pericardial effusion, valves not well visualized cardiac MRI 08/2018 [facility] [place] nl LV/RV size with mild biventricular LV dysfunction, small circumfrential pericardial effusion with increased ventricular interdependence, associated delayed enhancement of pericardium, findings c/w constrictive pericarditis. 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 Newman, undergoing chemotherapy - continue lasix, increase to 80 mg IV BID - continue carvedilol, holding spironolactone for hyperkalemia, Cr rising - monitor daily weights, lytes, Cr afib - s/p ANA/CV at [facility] [place] 08/2018, in sinus here - continue home eliquis, amiodarone, carvedilol HTN: -bp controlled, holding spironolactone and amlodipine CKD: - monitor with lasix - case discussed with renal
--- NOTE | 2019-01-06 11:16 | PN ---
Progress Note, Physician History of Present Illness: PULMONARY ALERT,STILL DYSPNEIC - Current Medication List Current Medications: Active Medications Acetaminophen (Tylenol -) 650 mg PO Q6H PRN PRN Reason: FEVER Albuterol/Ipratropium (Duoneb -) 1 amp NEB Q4H PRN PRN Reason: SHORTNESS OF BREATH Last Admin: 01/06/19 05:25 Dose: 1 amp Amiodarone HCl (Cordarone -) [address] [facility] Last Admin: 01/06/19 10:13 Dose: 200 mg Apixaban (Eliquis -) [address] [facility] Last Admin: 01/06/19 10:13 Dose: 5 mg Atovaquone (Mepron -) 1,[address] [facility] Last Admin: 01/06/19 10:13 Dose: 1,500 mg Budesonide/Formoterol Fumarate (Symbicort 80/4.5mcg -) [address] [facility] Last Admin: 01/06/19 10:13 Dose: 2 puff Carvedilol (Coreg -) 12.[address] [facility] Last Admin: 01/06/19 10:13 Dose: 12.5 mg Fenofibric Acid (Trilipix -) [address] [facility] Last Admin: 01/06/19 10:12 Dose: 135 mg Folic Acid (Folic Acid -) [address] [facility] Last Admin: 01/06/19 10:13 Dose: 1 mg Furosemide (Lasix Injection -) 80 mg IVPUSH BID@0600,1400 [facility] Gabapentin (Neurontin -) [address] [facility] Last Admin: 01/06/19 10:13 Dose: 300 mg - Objective Vital Signs: Vital Signs Temperature 98.1 F 01/06/19 02:00 Pulse Rate 76 01/06/19 06:00 Respiratory Rate 18 01/06/19 06:00 Blood Pressure 114/63 01/06/19 06:00 O2 Sat by Pulse Oximetry (%) 100 01/05/19 21:00 Constitutional: Yes: Well Nourished, Calm Eyes: Yes: WNL HENT: Yes: WNL Neck: Yes: WNL Cardiovascular: Yes: Pulse Irregular, S1, S2 Respiratory: Yes: Rales (HEBERT CRACKLES) Gastrointestinal: Yes: Normal Bowel Sounds, Soft Extremities: Yes: WNL Edema: Yes Labs: CBC, BMP 01/05/19 06:31 01/06/19 06:03 INR, PTT INR Cancelled 01/04/19 21:17 - ....Imaging Chest X-ray: Image Reviewed Problem List - Problems (1) CHF exacerbation Code(s): I50.9 - HEART FAILURE, UNSPECIFIED Qualifiers: Heart failure type: unspecified Qualified Code(s): I50.9 - Heart failure, unspecified (2) CKD (chronic kidney disease) Code(s): N18.9 - CHRONIC KIDNEY DISEASE, UNSPECIFIED (3) COPD (chronic obstructive pulmonary disease) Code(s): J44.9 - CHRONIC OBSTRUCTIVE PULMONARY DISEASE, UNSPECIFIED Qualifiers: COPD type: unspecified COPD Qualified Code(s): J44.9 - Chronic obstructive pulmonary disease, unspecified (4) Mesothelioma (pleural) Code(s): C45.0 - MESOTHELIOMA OF PLEURA (5) Pedal edema Code(s): R60.0 - LOCALIZED EDEMA (6) Afib Code(s): I48.91 - UNSPECIFIED ATRIAL FIBRILLATION (7) HTN (hypertension) Code(s): I10 - ESSENTIAL (PRIMARY) HYPERTENSION (8) Shortness of breath Code(s): R06.02 - SHORTNESS OF BREATH Assessment/Plan ASSESSMENT/PLAN: SOB due to acute decompensated heart failure History of Constrictive Pericarditis History of Mesothelioma on chemotherapy AFib on Eliquis CHF HTN Diuresis as tolerated Echo pending O2 as needed Daily weights Continue Eliquis DR CHAUHAN
--- NOTE | 2019-01-06 12:18 | PN ---
Progress Note, Physician History of Present Illness: very weak drowsy - Current Medication List Current Medications: Active Medications Acetaminophen (Tylenol -) 650 mg PO Q6H PRN PRN Reason: FEVER Albuterol/Ipratropium (Duoneb -) 1 amp NEB Q4H PRN PRN Reason: SHORTNESS OF BREATH Last Admin: 01/06/19 05:25 Dose: 1 amp Amiodarone HCl (Cordarone -) 200 mg PO DAILY [facility] Last Admin: 01/06/19 10:13 Dose: 200 mg Apixaban (Eliquis -) 5 mg PO BID [facility] Last Admin: 01/06/19 10:13 Dose: 5 mg Atovaquone (Mepron -) 1,500 mg PO DAILY [facility] Last Admin: 01/06/19 10:13 Dose: 1,500 mg Budesonide/Formoterol Fumarate (Symbicort 80/4.5mcg -) 2 puff IH BID [facility] Last Admin: 01/06/19 10:13 Dose: 2 puff Carvedilol (Coreg -) 12.5 mg PO BID [facility] Last Admin: 01/06/19 10:13 Dose: 12.5 mg Fenofibric Acid (Trilipix -) 135 mg PO DAILY [facility] Last Admin: 01/06/19 10:12 Dose: 135 mg Folic Acid (Folic Acid -) 1 mg PO DAILY [facility] Last Admin: 01/06/19 10:13 Dose: 1 mg Furosemide (Lasix Injection -) 80 mg IVPUSH BID@0600,1400 [facility] Gabapentin (Neurontin -) 300 mg PO DAILY [facility] Last Admin: 01/06/19 10:13 Dose: 300 mg - Objective Vital Signs: Vital Signs Temperature 98.2 F 01/06/19 10:00 Pulse Rate 76 01/06/19 10:00 Respiratory Rate 22 H 01/06/19 10:00 Blood Pressure 103/75 01/06/19 10:00 O2 Sat by Pulse Oximetry (%) 100 01/06/19 09:00 Constitutional: Yes: No Distress, Calm Cardiovascular: Yes: S1, S2 Respiratory: Yes: Regular, On Nasal O2, Poor Air Entry Gastrointestinal: Yes: Normal Bowel Sounds, Ascites, Distention Musculoskeletal: Yes: WNL Edema: LLE: 2+, RLE: 2+ Neurological: Yes: Alert, Other Labs: CBC, BMP 01/05/19 06:31 07/10/19 06:03 INR, PTT INR Cancelled 01/04/19 21:17 Assessment/Plan SOB due History of Constrictive Pericarditis History of Mesothelioma AFib CHF HTN i think patients condition is because of is chemo and i am worried if it is due to cardiac continue to monitor nutrition rest as per the team onco
--- NOTE | 2019-01-06 12:20 | PN ---
Progress Note, Physician History of Present Illness: Pt seen and examined at bedside. He complains of shortness of breath. He still has lower ext edema. - Current Medication List Current Medications: Active Medications Acetaminophen (Tylenol -) 650 mg PO Q6H PRN PRN Reason: FEVER Albuterol/Ipratropium (Duoneb -) 1 amp NEB Q4H PRN PRN Reason: SHORTNESS OF BREATH Last Admin: 01/06/19 05:25 Dose: 1 amp Amiodarone HCl (Cordarone -) 200 mg PO DAILY [facility] Last Admin: 01/06/19 10:13 Dose: 200 mg Apixaban (Eliquis -) 5 mg PO BID [facility] Last Admin: 01/06/19 10:13 Dose: 5 mg Atovaquone (Mepron -) 1,500 mg PO DAILY [facility] Last Admin: 01/06/19 10:13 Dose: 1,500 mg Budesonide/Formoterol Fumarate (Symbicort 80/4.5mcg -) 2 puff IH BID [facility] Last Admin: 01/06/19 10:13 Dose: 2 puff Carvedilol (Coreg -) 12.5 mg PO BID [facility] Last Admin: 01/06/19 10:13 Dose: 12.5 mg Fenofibric Acid (Trilipix -) 135 mg PO DAILY [facility] Last Admin: 01/06/19 10:12 Dose: 135 mg Folic Acid (Folic Acid -) 1 mg PO DAILY [facility] Last Admin: 01/06/19 10:13 Dose: 1 mg Furosemide (Lasix Injection -) 80 mg IVPUSH BID@0600,1400 [facility] Gabapentin (Neurontin -) 300 mg PO DAILY [facility] Last Admin: 01/06/19 10:13 Dose: 300 mg - Objective Vital Signs: Vital Signs Temperature 98.2 F 01/06/19 10:00 Pulse Rate 76 01/06/19 10:00 Respiratory Rate 22 H 01/06/19 10:00 Blood Pressure 103/75 01/06/19 10:00 O2 Sat by Pulse Oximetry (%) 100 01/06/19 09:00 Constitutional: Yes: Calm Eyes: Yes: Conjunctiva Clear HENT: Yes: Atraumatic Cardiovascular: Yes: S1, S2 Respiratory: Yes: On Nasal O2, Rhonchi Gastrointestinal: Yes: Soft Genitourinary: Yes: WNL Musculoskeletal: Yes: WNL Edema: Yes Edema: LLE: 3+, RLE: 3+ Neurological: Yes: Oriented Psychiatric: Yes: Oriented Labs: CBC, BMP 01/05/19 06:31 01/06/19 06:03 INR, PTT INR Cancelled 01/04/19 21:17 - ....Imaging Ultrasound: Report Reviewed Problem List - Problems (1) CKD (chronic kidney disease) Code(s): N18.9 - CHRONIC KIDNEY DISEASE, UNSPECIFIED (2) COPD (chronic obstructive pulmonary disease) Code(s): J44.9 - CHRONIC OBSTRUCTIVE PULMONARY DISEASE, UNSPECIFIED Qualifiers: Qualified Code(s): J44.9 - Chronic obstructive pulmonary disease, unspecified (3) Mesothelioma (pleural) Code(s): C45.0 - MESOTHELIOMA OF PLEURA (4) Pedal edema Code(s): R60.0 - LOCALIZED EDEMA Assessment/Plan Current Medications Generic Name Dose Route Start Last Admin Trade Name Freq PRN Reason Stop Dose Admin Acetaminophen 650 mg 01/04/19 21:51 Tylenol - PO Q6H PRN FEVER Albuterol/Ipratropium 1 amp 01/04/19 21:52 01/06/19 05:25 Duoneb - NEB 1 amp Q4H PRN Administration SHORTNESS OF BREATH Amiodarone HCl 200 mg 01/05/19 10:00 01/06/19 10:13 Cordarone - PO 200 mg DAILY [facility] Administration Apixaban 5 mg 01/04/19 22:00 01/06/19 10:13 Eliquis - PO 5 mg BID [facility] Administration Atovaquone 1,500 mg 01/05/19 10:00 01/06/19 10:13 Mepron - PO 1,500 mg DAILY [facility] Administration Budesonide/Formoterol Fumarate 2 puff 01/04/19 22:00 01/06/19 10:13 Symbicort 80/4.5mcg - IH 2 puff BID [facility] Administration Carvedilol 12.5 mg 01/04/19 22:00 01/06/19 10:13 Coreg - PO 12.5 mg BID [facility] Administration Fenofibric Acid 135 mg 01/05/19 10:00 01/06/19 10:12 Trilipix - PO 135 mg DAILY [facility] Administration Folic Acid 1 mg 01/05/19 10:00 01/06/19 10:13 Folic Acid - PO 1 mg DAILY [facility] Administration Furosemide 80 mg 01/06/19 11:01 Lasix Injection - IVPUSH BID@0600,1400 [facility] Gabapentin 300 mg 01/05/19 10:00 01/06/19 10:13 Neurontin - PO 300 mg DAILY [facility] Administration Impression 1. CKD 2. mesothelioma 3. HTN 4. hyperkalemia 5. a-fib 6. anemia Plan - renal ultrasound reviewed - lasix dose increased - stop aldactone as potassium is trending up - check bmp daily - monitor bp - discussed with cardio - renal workup in progress - pt volume overloaded
--- NOTE | 2019-01-06 16:02 | ECHO ---
Name: TY ALLEN Exam:Adult Echocardiogram Study Date: 01/06/2019 01:50 PM Age: 68 yrs Reason For Study: CHF Height: 68 in Weight: 216 lb BSA: 2.1 m2 MMode/2D Measurements & Calculations IVSd: 1.1 cm ACS: 2.0 cm LVIDd: 3.1 cm LVIDs: 2.4 cm LVPWd: 1.1 cm EDV(Teich): 39.0 ml LVOT diam: 2.0 cm ESV(Teich): 20.8 ml RV S Luis Angel: 10.9 cm/sec Doppler Measurements & Calculations MV E max luis angel: 58.2 cm/sec MV A max luis angel: 53.4 cm/sec MV dec slope: 137.8 cm/sec2 MV E/A: 1.1 Ao V2 max: 86.1 cm/sec LV V1 max P.4 mmHg Ao max P.0 mmHg LV V1 mean P.69 mmHg Ao V2 mean: 65.4 cm/sec LV V1 max: 60.1 cm/sec Ao mean P.9 mmHg LV V1 mean: 38.5 cm/sec Ao V2 VTI: 14.7 cm LV V1 VTI: 11.5 cm BELGICA(I,D): 2.4 cm2 BELGICA(V,D): 2.1 cm2 SV(LVOT): 35.3 ml TR max luis angel: 209.0 cm/sec TR max P.5 mmHg Med Peak E' Luis Angel: 7.4 cm/sec Med E/e': 7.9 Lat Peak E' Luis Angel: 4.8 cm/sec Lat E/e': 12.2 Procedure The study was technically difficult with many images being suboptimal in quality. Left Ventricle The left ventricle is not well visualized. The left ventricle is grossly normal size. Due to the poor quality of the echocardiogram, an assessment of left ventricular ejection fraction cannot be made. Regional w all motion abnormalities cannot be excluded due to limited visualization. Right Ventricle The right ventricle is not well visualized. Atria The left atrium is not well visualized. Right atrium not well visualized. Mitral Valve There is mild mitral valve thickening. There is no mitral valve stenosis. There is mild mitral regurg itation. Tricuspid Valve The tricuspid valve is not well visualized. There is no tricuspid stenosis. There is Trace to mild tr icuspid regurgitation. Right ventricular systolic pressure is normal. Aortic Valve The aortic valve is not well visualized. No hemodynamically significant valvular aortic stenosis. No aortic regurgitation is present. Pulmonic Valve The pulmonic valve is not well visualized. Great Vessels The aortic root is normal size. Pericardium/Pleura There is no pericardial effusion. Interpretation Summary The study was technically difficult with many images being suboptimal in quality. The left ventricle is not well visualized. The left ventricle is grossly normal size. The aortic valve is not well visualized. Regional wall motion abnormalities cannot be excluded due to limited visualization. Due to the poor quality of the echocardiogram, an assessment of left ventricular ejection fraction ca nnot be made. There is Trace to mild tricuspid regurgitation. Right ventricular systolic pressure is normal. MD Jer Rice 01/06/2019 04:01 PM
--- NOTE | 2019-01-06 16:57 | PN ---
Progress Note, Physician - Current Medication List Current Medications: Active Medications Acetaminophen (Tylenol -) 650 mg PO Q6H PRN PRN Reason: FEVER Albuterol/Ipratropium (Duoneb -) 1 amp NEB Q4H PRN PRN Reason: SHORTNESS OF BREATH Last Admin: 01/06/19 05:25 Dose: 1 amp Amiodarone HCl (Cordarone -) 200 mg PO DAILY [facility] Last Admin: 01/06/19 10:13 Dose: 200 mg Apixaban (Eliquis -) 5 mg PO BID [facility] Last Admin: 01/06/19 10:13 Dose: 5 mg Atovaquone (Mepron -) 1,500 mg PO DAILY [facility] Last Admin: 01/06/19 10:13 Dose: 1,500 mg Budesonide/Formoterol Fumarate (Symbicort 80/4.5mcg -) 2 puff IH BID [facility] Last Admin: 01/06/19 10:13 Dose: 2 puff Carvedilol (Coreg -) 12.5 mg PO BID [facility] Last Admin: 01/06/19 10:13 Dose: 12.5 mg Fenofibric Acid (Trilipix -) 135 mg PO DAILY [facility] Last Admin: 01/06/19 10:12 Dose: 135 mg Folic Acid (Folic Acid -) 1 mg PO DAILY [facility] Last Admin: 01/06/19 10:13 Dose: 1 mg Furosemide (Lasix Injection -) 80 mg IVPUSH BID@0600,1400 [facility] Last Admin: 01/06/19 13:14 Dose: 80 mg Gabapentin (Neurontin -) 300 mg PO DAILY [facility] Last Admin: 01/06/19 10:13 Dose: 300 mg - Objective Vital Signs: Vital Signs Temperature 98.6 F 01/06/19 14:00 Pulse Rate 84 01/06/19 14:00 Respiratory Rate 22 H 01/06/19 14:00 Blood Pressure 115/57 L 01/06/19 14:00 O2 Sat by Pulse Oximetry (%) 100 01/06/19 09:00 Constitutional: Yes: No Distress HENT: Yes: Atraumatic Neck: Yes: Supple Cardiovascular: Yes: Regular Rate and Rhythm Respiratory: Yes: Rhonchi Gastrointestinal: Yes: Normal Bowel Sounds Extremities: Yes: WNL Edema: Yes Neurological: Yes: Alert, Oriented Labs: CBC, BMP 01/05/19 06:31 01/06/19 06:03 INR, PTT INR Cancelled 01/04/19 21:17 Problem List - Problems (1) Pedal edema Assessment/Plan: on diuretics Code(s): R60.0 - LOCALIZED EDEMA (2) CYNDIE (acute kidney injury) Code(s): N17.9 - ACUTE KIDNEY FAILURE, UNSPECIFIED (3) Acute diastolic heart failure Code(s): I50.31 - ACUTE DIASTOLIC (CONGESTIVE) HEART FAILURE (4) Afib Assessment/Plan: on meds on AC Code(s): I48.91 - UNSPECIFIED ATRIAL FIBRILLATION (5) CHF exacerbation Code(s): I50.9 - HEART FAILURE, UNSPECIFIED Qualifiers: Heart failure type: unspecified Qualified Code(s): I50.9 - Heart failure, unspecified (6) COPD (chronic obstructive pulmonary disease) Assessment/Plan: prn nebs and oxygen Code(s): J44.9 - CHRONIC OBSTRUCTIVE PULMONARY DISEASE, UNSPECIFIED Qualifiers: COPD type: unspecified COPD Qualified Code(s): J44.9 - Chronic obstructive pulmonary disease, unspecified (7) HTN (hypertension) Code(s): I10 - ESSENTIAL (PRIMARY) HYPERTENSION (8) Mesothelioma (pleural) Code(s): C45.0 - MESOTHELIOMA OF PLEURA
[2019-01-06 17:41] LABS: URINE APPEARANCE CLEAR; URINE BILIRUBIN NEGATIVE (NEGATIVE); URINE COLOR YELLOW; URINE GLUCOSE (UA) NEGATIVE (NEGATIVE); URINE KETONE NEGATIVE (NEGATIVE); URINE LEUK ESTERASE NEGATIVE (NEGATIVE); URINE NITRITE NEGATIVE (NEGATIVE); URINE PROTEIN NEGATIVE (NEGATIVE)
--- NOTE | 2019-01-06 19:32 | PN ---
Progress Note (short form) - Note Progress Note: Patient seen and examined Remains dyspneic on minimal exertion Weight gain of 1+ lbs Kidney function - worse Liver functions - abnormal - ?? congestions Last Vital Signs Temp Pulse Resp BP Pulse Ox 98.6 F 84 22 H 115/57 L 100 01/06/19 14:00 01/06/19 14:00 01/06/19 14:00 01/06/19 14:00 01/06/19 09:00 HEENT: WILLIAMS, EOM Intact Oropharynx: No thrush, No mucositis Cor: atrial fib Lungs: diminished breath sounds Abd: disteneded Ext:LE 4+ edema edema Skin: No rashes, some LE weeping CBC, BMP 01/05/19 06:31 01/06/19 06:03 Current Medications Generic Name Dose Route Start Last Admin Trade Name Freq PRN Reason Stop Dose Admin Acetaminophen 650 mg 01/04/19 21:51 Tylenol - PO Q6H PRN FEVER Albuterol/Ipratropium 1 amp 01/04/19 21:52 01/06/19 05:25 Duoneb - NEB 1 amp Q4H PRN Administration SHORTNESS OF BREATH Amiodarone HCl 200 mg 01/05/19 10:00 01/06/19 10:13 Cordarone - PO 200 mg DAILY JANINE Administration Apixaban 5 mg 01/04/19 22:00 01/06/19 10:13 Eliquis - PO 5 mg BID JANINE Administration Atovaquone 1,500 mg 01/05/19 10:00 01/06/19 10:13 Mepron - PO 1,500 mg DAILY JANINE Administration Budesonide/Formoterol Fumarate 2 puff 01/04/19 22:00 01/06/19 10:13 Symbicort 80/4.5mcg - IH 2 puff BID JANINE Administration Carvedilol 12.5 mg 01/04/19 22:00 01/06/19 10:13 Coreg - PO 12.5 mg BID JANINE Administration Fenofibric Acid 135 mg 01/05/19 10:00 01/06/19 10:12 Trilipix - PO 135 mg DAILY JANINE Administration Folic Acid 1 mg 01/05/19 10:00 01/06/19 10:13 Folic Acid - PO 1 mg DAILY JANINE Administration Furosemide 80 mg 01/06/19 11:01 01/06/19 13:14 Lasix Injection - IVPUSH 80 mg BID@0600,1400 JANINE Administration Gabapentin 300 mg 01/05/19 10:00 01/06/19 10:13 Neurontin - PO 300 mg DAILY JANINE Administration Impression Mesothelioma Fluid Overload CKD/CYNDIE Abnormal LFT's Pericardial constriction ?? consider lasix drip. ??SPA/ lasix
[2019-01-07] MEDS: ACETAMINOPHEN 325 MG TABLET (FP) PO PRN (01:25)
[2019-01-07] MEDS: FUROSEMIDE 40 MG/4 ML INJECTABLE VIAL IVPUSH SCH ×2 (06:04→13:24)
[2019-01-07] MEDS: ALBUTEROL SO4 2.5/IPRATROPIUM 0.5 INH SOL 3 ML VIAL.NEB. NEB PRN (06:25)
[2019-01-07 07:57] LABS: ALBUMIN 2.3 g/dl (3.4-5.0); BILIRUBIN,TOTAL 2.1 mg/dL (0.2-1); BLOOD UREA NITROGEN 65.5 mg/dL (7-18); CALCIUM 7.8 mg/dL (8.5-10.1); POTASSIUM 4.6 mmol/L (3.5-5.1); TOT PROT 5.1 g/dl (6.4-8.2)
[2019-01-07] MEDS: APIXABAN 5 MG TABLET PO SCH ×2 (10:01→21:15)
[2019-01-07] MEDS: GABAPENTIN 300 MG CAPSULE (FP) PO SCH (10:01)
[2019-01-07] MEDS: AMIODARONE HCL 200 MG TABLET (FP) PO SCH (10:01)
[2019-01-07] MEDS: FOLIC ACID 1 MG TABLET (FP) PO SCH (10:01)
[2019-01-07] MEDS: CARVEDILOL 12.5 MG TABLET (FP) PO SCH ×2 (10:01→21:15)
[2019-01-07] MEDS: FENOFIBRIC ACID 135 MG CAP PO SCH (10:02)
[2019-01-07] MEDS: BUDESONIDE/FORMETEROL FUMARATE 80/4.5 mcg INHALER IH SCH ×2 (10:02→21:15)
[2019-01-07] MEDS: ATOVAQUONE 750 MG/5 ML (UNIT-DOSE PACKAGING) PO SCH (10:02)
--- NOTE | 2019-01-07 12:40 | PN ---
Progress Note, Physician History of Present Illness: stable no new issues - Current Medication List Current Medications: Active Medications Acetaminophen (Tylenol -) 650 mg PO Q6H PRN PRN Reason: FEVER Last Admin: 01/07/19 01:25 Dose: 650 mg Albuterol/Ipratropium (Duoneb -) 1 amp NEB Q4H PRN PRN Reason: SHORTNESS OF BREATH Last Admin: 01/07/19 06:25 Dose: 1 amp Amiodarone HCl (Cordarone -) 200 mg PO DAILY [facility] Last Admin: 01/07/19 10:01 Dose: 200 mg Apixaban (Eliquis -) 5 mg PO BID [facility] Last Admin: 01/07/19 10:01 Dose: 5 mg Atovaquone (Mepron -) 1,500 mg PO DAILY [facility] Last Admin: 01/07/19 10:02 Dose: 1,500 mg Budesonide/Formoterol Fumarate (Symbicort 80/4.5mcg -) 2 puff IH BID [facility] Last Admin: 01/07/19 10:02 Dose: 2 puff Carvedilol (Coreg -) 12.5 mg PO BID [facility] Last Admin: 01/07/19 10:01 Dose: 12.5 mg Fenofibric Acid (Trilipix -) 135 mg PO DAILY [facility] Last Admin: 01/07/19 10:02 Dose: 135 mg Folic Acid (Folic Acid -) 1 mg PO DAILY [facility] Last Admin: 01/07/19 10:01 Dose: 1 mg Furosemide (Lasix Injection -) 80 mg IVPUSH BID@0600,1400 [facility] Last Admin: 01/07/19 06:04 Dose: 80 mg Gabapentin (Neurontin -) 300 mg PO DAILY [facility] Last Admin: 01/07/19 10:01 Dose: 300 mg - Objective Vital Signs: Vital Signs Temperature 98.0 F 01/07/19 09:00 Pulse Rate 78 01/07/19 09:00 Respiratory Rate 20 01/07/19 09:00 Blood Pressure 106/59 L 01/07/19 09:00 O2 Sat by Pulse Oximetry (%) 98 01/07/19 09:00 Constitutional: Yes: No Distress, Calm Cardiovascular: Yes: Regular Rate and Rhythm Respiratory: Yes: Regular, On Nasal O2, Poor Air Entry Gastrointestinal: Yes: Normal Bowel Sounds, Soft Musculoskeletal: Yes: WNL Extremities: Yes: WNL Neurological: Yes: Alert, Oriented Psychiatric: Yes: Alert, Oriented Labs: CBC, BMP 01/05/19 06:31 01/07/19 05:25 INR, PTT INR Cancelled 01/04/19 21:17 Assessment/Plan SOB due History of Constrictive Pericarditis History of Mesothelioma AFib CHF HTN looking much better consider nutrition protein shakes rest as per the team
--- NOTE | 2019-01-07 12:49 | PN ---
Progress Note (short form) - Note Progress Note: s: still short of breath, edema unchanged. no chest pain, palps, dizziness no cigs Current Medications Generic Name Dose Route Start Last Admin Trade Name Maude PRN Reason Stop Dose Admin Acetaminophen 650 mg 01/04/19 21:51 01/07/19 01:25 Tylenol - PO 650 mg Q6H PRN Administration FEVER Albuterol/Ipratropium 1 amp 01/04/19 21:52 01/07/19 06:25 Duoneb - NEB 1 amp Q4H PRN Administration SHORTNESS OF BREATH Amiodarone HCl 200 mg 01/05/19 10:00 01/07/19 10:01 Cordarone - PO 200 mg DAILY JANINE Administration Apixaban 5 mg 01/04/19 22:00 01/07/19 10:01 Eliquis - PO 5 mg BID JANINE Administration Atovaquone 1,500 mg 01/05/19 10:00 01/07/19 10:02 Mepron - PO 1,500 mg DAILY JANINE Administration Budesonide/Formoterol Fumarate 2 puff 01/04/19 22:00 01/07/19 10:02 Symbicort 80/4.5mcg - IH 2 puff BID JANINE Administration Carvedilol 12.5 mg 01/04/19 22:00 01/07/19 10:01 Coreg - PO 12.5 mg BID JANINE Administration Fenofibric Acid 135 mg 01/05/19 10:00 01/07/19 10:02 Trilipix - PO 135 mg DAILY JANINE Administration Folic Acid 1 mg 01/05/19 10:00 01/07/19 10:01 Folic Acid - PO 1 mg DAILY JANINE Administration Furosemide 80 mg 01/06/19 11:01 01/07/19 06:04 Lasix Injection - IVPUSH 80 mg BID@0600,1400 JANINE Administration Gabapentin 300 mg 01/05/19 10:00 01/07/19 10:01 Neurontin - PO 300 mg DAILY JANINE Administration Vital Signs Period Temp Pulse Resp BP Sys/Clements Pulse Ox Last 24 Hr 97.3 F-98.8 F 78-84 20-22 103-115/57-73 98-98 Constitutional: Yes: Well Nourished, No Distress Eyes: No: Sclera Icterus Respiratory: Yes: CTA Bilaterally, Diminished (bases). Gastrointestinal: Yes: Normal Bowel Sounds, Distention. No: Hepatomegaly, Palpable Mass, Tenderness Cardiovascular: Yes: Regular Rate and Rhythm JVD: No Carotid Bruit: No PMI: Non-Displaced Heart Sounds: Yes: S1, S2. No: Gallop Murmur: No: Systolic Murmur, Diastolic Murmur Extremities: No: Cool, Cyanosis Edema: 2+ cristian lower ext edema Integumentary: No: Jaundice Neurological: Yes: Alert, Oriented (x3) Psychiatric: No: Agitated CBC, BMP 01/05/19 06:31 01/07/19 05:25 ECG:sinus tach, low voltage, inferolat twi echo in 10/15 Dr. Meyer: normal LV, no pericardial effusion (no other signif abnormality) cath 09/2017 nl cors echo 06/2018 nl LV function, mildly reduced RV function, borderline LA enlargement, mild MR, mild TR, RVSP nl, small pericardial effusion <1 cm, no echo indication of tamponade echo 08/2018 [facility] with definity nl LV function, mild RV dilation, mod decreased RV function, ao sclerosis, mild MR, mild TR, minimal pericardial effusion, valves not well visualized cardiac MRI 08/2018 [facility] n[place] LV/RV size with mild biventricular LV dysfunction, small circumfrential pericardial effusion with increased ventricular interdependence, associated delayed enhancement of pericardium, findings c/w constrictive pericarditis. 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 Newman, undergoing chemotherapy - continue lasix, 80 mg IV BID - continue carvedilol, holding spironolactone for hyperkalemia, Cr rising - monitor daily weights, lytes, Cr afib - s/p ANA/CV at [facility] [place], in sinus here - continue home eliquis, amiodarone, carvedilol HTN: -bp controlled, holding spironolactone and amlodipine CKD: - monitor with lasix
--- NOTE | 2019-01-07 13:24 | PN ---
Progress Note (short form) - Note Progress Note: Breathing feels about the same. Still with AMARAL. No change in led edema. Intake & Output 01/04/19 01/05/19 01/06/19 01/07/19 23:59 23:59 23:59 23:59 Intake Total 540 1520 500 Output Total 1500 200 Balance 540 20 300 Weight 215 lb 215 lb 216 lb 3.2 oz 215 lb Last Vital Signs Temp Pulse Resp BP Pulse Ox 98.0 F 78 20 106/59 L 98 01/07/19 09:00 01/07/19 09:00 01/07/19 09:00 01/07/19 09:00 01/07/19 09:00 Active Medications Acetaminophen (Tylenol -) 650 mg PO Q6H PRN PRN Reason: FEVER Last Admin: 01/07/19 01:25 Dose: 650 mg Albuterol/Ipratropium (Duoneb -) 1 amp NEB Q4H PRN PRN Reason: SHORTNESS OF BREATH Last Admin: 01/07/19 06:25 Dose: 1 amp Amiodarone HCl (Cordarone -) 200 mg PO DAILY [facility] Last Admin: 01/07/19 10:01 Dose: 200 mg Apixaban (Eliquis -) 5 mg PO BID [facility] Last Admin: 01/07/19 10:01 Dose: 5 mg Atovaquone (Mepron -) 1,500 mg PO DAILY [facility] Last Admin: 01/07/19 10:02 Dose: 1,500 mg Budesonide/Formoterol Fumarate (Symbicort 80/4.5mcg -) 2 puff IH BID [facility] Last Admin: 01/07/19 10:02 Dose: 2 puff Carvedilol (Coreg -) 12.5 mg PO BID [facility] Last Admin: 01/07/19 10:01 Dose: 12.5 mg Fenofibric Acid (Trilipix -) 135 mg PO DAILY [facility] Last Admin: 01/07/19 10:02 Dose: 135 mg Folic Acid (Folic Acid -) 1 mg PO DAILY [facility] Last Admin: 01/07/19 10:01 Dose: 1 mg Furosemide (Lasix Injection -) 80 mg IVPUSH BID@0600,1400 [facility] Last Admin: 01/07/19 06:04 Dose: 80 mg Gabapentin (Neurontin -) 300 mg PO DAILY [facility] Last Admin: 01/07/19 10:01 Dose: 300 mg GENERAL: Awake, alert, mildly tachypneic at rest HEAD: Normal with no signs of trauma. EYES: sclera anicteric, conjunctiva clear. No lid lag. EARS, NOSE, THROAT: Ears normal, nares patent, oropharynx clear without exudates. Moist mucous membranes. NECK: Normal range of motion, supple without lymphadenopathy, JVD, or masses. LUNGS: bibasilar rhonchi, no wheeze HEART: Regular rate and rhythm, normal S1 and S2 without murmur, rub or gallop. ABDOMEN: Soft, (?) ascites, nontender, distended, normoactive bowel sounds, no guarding, no rebound, no masses. MUSCULOSKELETAL: Normal range of motion at all joints. No bony deformities or tenderness. No CVA tenderness. UPPER EXTREMITIES: 2+ pulses, warm, well-perfused. No cyanosis. No clubbing. Cap refill <2 seconds. No peripheral edema. LOWER EXTREMITIES: (+) 4 edema NEUROLOGICAL: Non-focal PSYCHIATRIC: Cooperative. Good eye contact. Appropriate mood and affect. SKIN: LE venous stasis Laboratory Results - last 24 hr 01/06/19 01/06/19 01/06/19 06:03 14:35 14:35 Sodium Potassium Chloride Carbon Dioxide Anion Gap BUN Creatinine Est GFR (CKD-EPI)AfAm Est GFR (CKD-EPI)NonAf Random Glucose Calcium Total Bilirubin AST ALT Alkaline Phosphatase Total Protein Albumin Urine Color Yellow Urine Appearance Clear Urine pH 5.0 Ur Specific [place] 1.010 Urine Protein Negative Urine Glucose (UA) Negative Urine Ketones Negative Urine Blood Negative Urine Nitrite Negative Urine Bilirubin Negative Urine Urobilinogen 1.0 Ur Leukocyte Esterase Negative Ur Random Sodium 54 Ur Random Potassium 30.0 Ur Random Chloride 79 L Double Strand DNA Ab <1 01/07/19 05:25 Sodium 140 Potassium 4.6 Chloride 103 Carbon Dioxide 30 Anion Gap 6 L BUN 65.5 H Creatinine 2.0 H Est GFR (CKD-EPI)AfAm 38.60 Est GFR (CKD-EPI)NonAf 33.30 Random Glucose 101 Calcium 7.8 L Total Bilirubin 2.1 H AST 71 H ALT 145 H Alkaline Phosphatase 124 H Total Protein 5.1 L Albumin 2.3 L Urine Color Urine Appearance Urine pH Ur Specific [place] Urine Protein Urine Glucose (UA) Urine Ketones Urine Blood Urine Nitrite Urine Bilirubin Urine Urobilinogen Ur Leukocyte Esterase Ur Random Sodium Ur Random Potassium Ur Random Chloride Double Strand DNA Ab ASSESSMENT/PLAN: SOB due to acute decompensated heart failure History of Constrictive Pericarditis History of Mesothelioma on chemotherapy AFib on Eliquis CHF HTN Do not suspect PNA or infectious process Symbicort BID Duiresis as tolerated O2 as needed Daily weights Monitor off ABX Continue Eliquis Dr Morales
[2019-01-07] MEDS ORDERED: METOLAZONE 2.5 MG TABLET (FP) PO ONE (13:29)
--- NOTE | 2019-01-07 13:29 | PN ---
Progress Note, Physician History of Present Illness: Pt seen and examined at bedside. He complains of shortness of breath and lower ext edema. He does not feel that the lasix is helping. Aldactone was stopped secondary to hyperkalemia. - Current Medication List Current Medications: Active Medications Acetaminophen (Tylenol -) 650 mg PO Q6H PRN PRN Reason: FEVER Last Admin: 01/07/19 01:25 Dose: 650 mg Albuterol/Ipratropium (Duoneb -) 1 amp NEB Q4H PRN PRN Reason: SHORTNESS OF BREATH Last Admin: 01/07/19 06:25 Dose: 1 amp Amiodarone HCl (Cordarone -) 200 mg PO DAILY [facility] Last Admin: 01/07/19 10:01 Dose: 200 mg Apixaban (Eliquis -) 5 mg PO BID [facility] Last Admin: 01/07/19 10:01 Dose: 5 mg Atovaquone (Mepron -) 1,500 mg PO DAILY [facility] Last Admin: 01/07/19 10:02 Dose: 1,500 mg Budesonide/Formoterol Fumarate (Symbicort 80/4.5mcg -) 2 puff IH BID [facility] Last Admin: 01/07/19 10:02 Dose: 2 puff Carvedilol (Coreg -) 12.5 mg PO BID [facility] Last Admin: 01/07/19 10:01 Dose: 12.5 mg Fenofibric Acid (Trilipix -) 135 mg PO DAILY [facility] Last Admin: 01/07/19 10:02 Dose: 135 mg Folic Acid (Folic Acid -) 1 mg PO DAILY [facility] Last Admin: 01/07/19 10:01 Dose: 1 mg Furosemide (Lasix Injection -) 80 mg IVPUSH BID@0600,1400 [facility] Last Admin: 01/07/19 13:24 Dose: 80 mg Gabapentin (Neurontin -) 300 mg PO DAILY [facility] Last Admin: 01/07/19 10:01 Dose: 300 mg - Objective Vital Signs: Vital Signs Temperature 98.0 F 01/07/19 13:00 Pulse Rate 75 01/07/19 13:00 Respiratory Rate 20 01/07/19 13:00 Blood Pressure 102/55 L 01/07/19 13:00 O2 Sat by Pulse Oximetry (%) 98 01/07/19 09:00 Constitutional: Yes: Calm Eyes: Yes: Conjunctiva Clear HENT: Yes: Atraumatic Cardiovascular: Yes: S1, S2 Respiratory: Yes: On Nasal O2 Gastrointestinal: Yes: Soft Genitourinary: Yes: WNL Musculoskeletal: Yes: WNL Extremities: Yes: WNL Edema: Yes Edema: LLE: 3+, RLE: 3+ Integumentary: Yes: Venous Stasis Changes Neurological: Yes: Oriented Psychiatric: Yes: Oriented Labs: CBC, BMP 01/05/19 06:31 01/07/19 05:25 INR, PTT INR Cancelled 01/04/19 21:17 Problem List - Problems (1) CKD (chronic kidney disease) Code(s): N18.9 - CHRONIC KIDNEY DISEASE, UNSPECIFIED (2) COPD (chronic obstructive pulmonary disease) Code(s): J44.9 - CHRONIC OBSTRUCTIVE PULMONARY DISEASE, UNSPECIFIED Qualifiers: COPD type: unspecified COPD Qualified Code(s): J44.9 - Chronic obstructive pulmonary disease, unspecified (3) Mesothelioma (pleural) Code(s): C45.0 - MESOTHELIOMA OF PLEURA (4) Pedal edema Code(s): R60.0 - LOCALIZED EDEMA Assessment/Plan Current Medications Generic Name Dose Route Start Last Admin Trade Name Freq PRN Reason Stop Dose Admin Acetaminophen 650 mg 01/04/19 21:51 01/07/19 01:25 Tylenol - PO 650 mg Q6H PRN Administration FEVER Albuterol/Ipratropium 1 amp 01/04/19 21:52 01/07/19 06:25 Duoneb - NEB 1 amp Q4H PRN Administration SHORTNESS OF BREATH Amiodarone HCl 200 mg 01/05/19 10:00 01/07/19 10:01 Cordarone - PO 200 mg DAILY JANINE Administration Apixaban 5 mg 01/04/19 22:00 01/07/19 10:01 Eliquis - PO 5 mg BID JANINE Administration Atovaquone 1,500 mg 01/05/19 10:00 01/07/19 10:02 Mepron - PO 1,500 mg DAILY JANINE Administration Budesonide/Formoterol Fumarate 2 puff 01/04/19 22:00 01/07/19 10:02 Symbicort 80/4.5mcg - IH 2 puff BID JANINE Administration Carvedilol 12.5 mg 01/04/19 22:00 01/07/19 10:01 Coreg - PO 12.5 mg BID JANINE Administration Fenofibric Acid 135 mg 01/05/19 10:00 01/07/19 10:02 Trilipix - PO 135 mg DAILY JANINE Administration Folic Acid 1 mg 01/05/19 10:00 01/07/19 10:01 Folic Acid - PO 1 mg DAILY JANINE Administration Furosemide 80 mg 01/06/19 11:01 01/07/19 13:24 Lasix Injection - IVPUSH 80 mg BID@0600,1400 JANINE Administration Gabapentin 300 mg 01/05/19 10:00 01/07/19 10:01 Neurontin - PO 300 mg DAILY JANINE Administration Impression 1. CKD 2. mesothelioma 3. HTN 4. hyperkalemia 5. a-fib 6. 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
--- NOTE | 2019-01-07 18:21 | PN ---
Progress Note, Physician History of Present Illness: anxious - Current Medication List Current Medications: Active Medications Acetaminophen (Tylenol -) 650 mg PO Q6H PRN PRN Reason: FEVER Last Admin: 01/07/19 01:25 Dose: 650 mg Albuterol/Ipratropium (Duoneb -) 1 amp NEB Q4H PRN PRN Reason: SHORTNESS OF BREATH Last Admin: 01/07/19 06:25 Dose: 1 amp Amiodarone HCl (Cordarone -) 200 mg PO DAILY [facility] Last Admin: 01/07/19 10:01 Dose: 200 mg Apixaban (Eliquis -) 5 mg PO BID [facility] Last Admin: 01/07/19 10:01 Dose: 5 mg Atovaquone (Mepron -) 1,500 mg PO DAILY [facility] Last Admin: 01/07/19 10:02 Dose: 1,500 mg Budesonide/Formoterol Fumarate (Symbicort 80/4.5mcg -) 2 puff IH BID [facility] Last Admin: 01/07/19 10:02 Dose: 2 puff Carvedilol (Coreg -) 12.5 mg PO BID [facility] Last Admin: 01/07/19 10:01 Dose: 12.5 mg Fenofibric Acid (Trilipix -) 135 mg PO DAILY [facility] Last Admin: 01/07/19 10:02 Dose: 135 mg Folic Acid (Folic Acid -) 1 mg PO DAILY [facility] Last Admin: 01/07/19 10:01 Dose: 1 mg Furosemide (Lasix Injection -) 80 mg IVPUSH BID@0600,1400 [facility] Last Admin: 01/07/19 13:24 Dose: 80 mg Gabapentin (Neurontin -) 300 mg PO DAILY [facility] Last Admin: 01/07/19 10:01 Dose: 300 mg - Objective Vital Signs: Vital Signs Temperature 97.8 F 01/07/19 14:00 Pulse Rate 78 01/07/19 14:00 Respiratory Rate 20 01/07/19 13:00 Blood Pressure 105/68 01/07/19 14:00 O2 Sat by Pulse Oximetry (%) 98 01/07/19 09:00 Constitutional: Yes: Anxious HENT: Yes: Atraumatic Neck: Yes: Supple Cardiovascular: Yes: Regular Rate and Rhythm Respiratory: Yes: CTA Bilaterally Gastrointestinal: Yes: Normal Bowel Sounds Extremities: Yes: WNL Edema: No Peripheral Pulses WNL: Yes Neurological: Yes: Alert, Oriented Labs: CBC, BMP 01/05/19 06:31 01/07/19 05:25 INR, PTT INR Cancelled 01/04/19 21:17 Problem List - Problems (1) Pedal edema Assessment/Plan: on diuretics Code(s): R60.0 - LOCALIZED EDEMA (2) CYNDIE (acute kidney injury) Code(s): N17.9 - ACUTE KIDNEY FAILURE, UNSPECIFIED (3) Acute diastolic heart failure Code(s): I50.31 - ACUTE DIASTOLIC (CONGESTIVE) HEART FAILURE (4) Afib Assessment/Plan: on meds on AC Code(s): I48.91 - UNSPECIFIED ATRIAL FIBRILLATION (5) CHF exacerbation Code(s): I50.9 - HEART FAILURE, UNSPECIFIED Qualifiers: Heart failure type: unspecified Qualified Code(s): I50.9 - Heart failure, unspecified (6) COPD (chronic obstructive pulmonary disease) Assessment/Plan: prn nebs and oxygen Code(s): J44.9 - CHRONIC OBSTRUCTIVE PULMONARY DISEASE, UNSPECIFIED Qualifiers: COPD type: unspecified COPD Qualified Code(s): J44.9 - Chronic obstructive pulmonary disease, unspecified (7) HTN (hypertension) Code(s): I10 - ESSENTIAL (PRIMARY) HYPERTENSION (8) Mesothelioma (pleural) Code(s): C45.0 - MESOTHELIOMA OF PLEURA
[2019-01-07] MEDS ORDERED: PT OWN MED DRAWER 7, Y5N ONE (20:53)
[2019-01-07 22:11] LABS: HEP A AB, IGM Negative (Negative); HEP B CORE AB, TOT Negative (Negative)
[2019-01-08] MEDS: ACETAMINOPHEN 325 MG TABLET (FP) PO PRN ×2 (00:46→09:32)
[2019-01-08] MEDS: ALBUTEROL SO4 2.5/IPRATROPIUM 0.5 INH SOL 3 ML VIAL.NEB. NEB PRN (04:18)
[2019-01-08] MEDS: FUROSEMIDE 40 MG/4 ML INJECTABLE VIAL IVPUSH SCH ×2 (06:18→14:34)
[2019-01-08 06:43] LABS: ALBUMIN 2.2 g/dl (3.4-5.0); BILIRUBIN,TOTAL 2.7 mg/dL (0.2-1); BLOOD UREA NITROGEN 65.6 mg/dL (7-18); CALCIUM 7.8 mg/dL (8.5-10.1); CREATININE 2.1 mg/dL (0.55-1.3); POTASSIUM 4.1 mmol/L (3.5-5.1); TOT PROT 4.9 g/dl (6.4-8.2)
--- NOTE | 2019-01-08 09:18 | PN ---
Progress Note, Physician Chief Complaint: seen and examined on tele Weight has not changed. TELE: NSR, short self limited run NSVT (4 beats) - Current Medication List Current Medications: Active Medications Acetaminophen (Tylenol -) 650 mg PO Q6H PRN PRN Reason: FEVER Last Admin: 01/08/19 00:46 Dose: 650 mg Albuterol/Ipratropium (Duoneb -) 1 amp NEB Q4H PRN PRN Reason: SHORTNESS OF BREATH Last Admin: 01/08/19 04:18 Dose: 1 amp Amiodarone HCl (Cordarone -) 200 mg PO DAILY [facility] Last Admin: 01/07/19 10:01 Dose: 200 mg Apixaban (Eliquis -) 5 mg PO BID [facility] Last Admin: 01/07/19 21:15 Dose: 5 mg Atovaquone (Mepron -) 1,500 mg PO DAILY [facility] Last Admin: 01/07/19 10:02 Dose: 1,500 mg Budesonide/Formoterol Fumarate (Symbicort 80/4.5mcg -) 2 puff IH BID [facility] Last Admin: 01/07/19 21:15 Dose: 2 puff Carvedilol (Coreg -) 12.5 mg PO BID [facility] Last Admin: 01/07/19 21:15 Dose: 12.5 mg Fenofibric Acid (Trilipix -) 135 mg PO DAILY [facility] Last Admin: 01/07/19 10:02 Dose: 135 mg Folic Acid (Folic Acid -) 1 mg PO DAILY [facility] Last Admin: 01/07/19 10:01 Dose: 1 mg Furosemide (Lasix Injection -) 80 mg IVPUSH BID@0600,1400 [facility] Last Admin: 01/08/19 06:18 Dose: 80 mg Gabapentin (Neurontin -) 300 mg PO DAILY [facility] Last Admin: 01/07/19 10:01 Dose: 300 mg - Objective Vital Signs: Vital Signs Temperature 97.8 F 01/08/19 08:08 Pulse Rate 83 01/08/19 08:08 Respiratory Rate 20 01/08/19 08:12 Blood Pressure 104/58 L 01/08/19 08:08 O2 Sat by Pulse Oximetry (%) 92 L 01/08/19 08:12 Constitutional: Yes: No Distress Cardiovascular: Yes: Regular Rate and Rhythm Respiratory: Yes: Other (rales at bases) Gastrointestinal: Yes: Soft (distended) Edema: Yes Edema: LLE: 2+, RLE: 2+ Neurological: Yes: Alert, Oriented Labs: CBC, BMP 01/05/19 06:31 01/08/19 05:00 INR, PTT INR Cancelled 01/04/19 21:17 Laboratory Tests 01/08/19 05:00 Sodium 139 Potassium 4.1 BUN 65.6 H Creatinine 2.1 H AST 43 H ALT 117 H Assessment/Plan DATA: ECG:sinus tach, low voltage, inferolat twi echo in 10/15 Dr. Meyer: normal LV, no pericardial effusion (no other signif abnormality) cath 09/2017 nl cors echo 06/2018 nl LV function, mildly reduced RV function, borderline LA enlargement, mild MR, mild TR, RVSP nl, small pericardial effusion <1 cm, no echo indication of tamponade echo 08/2018 [facility] definity [place] LV function, mild RV dilation, mod decreased RV function, ao sclerosis, mild MR, mild TR, minimal pericardial effusion, valves not well visualized cardiac MRI 08/2018 [facility] [place] LV/RV size with mild biventricular LV dysfunction, small circumfrential pericardial effusion with increased ventricular interdependence, associated delayed enhancement of pericardium, findings c/w constrictive pericarditis. nonpsecific intramyocardial LGE seen in setting of NICM, findings c/w mesothelioma in L hemithorax, mod biatrial enlargement tele: sinus cxr: congestive changes IMP/REC: 1. Constrictive pericarditis, acute diastolic chf, mesothelioma: - recently admitted 08/2018 for CHF exac, [place] [facility] [place] found to have constrictive pericarditis 2/2 mesothelioma - was evaluated [place] CT [place] [facility] [place] - not a candidate for pericardial stripping - onc consulted - sees Dr. Newman, undergoing chemotherapy - continue lasix, 80 mg IV BID; Would probably add Zarox TIW - continue carvedilol, holding spironolactone for hyperkalemia, Cr rising--> may improve if we can diurese him more effectively - monitor daily weights, lytes, Cr 2.PAF: - s/p ANA/CV [place] [facility] [place], [place] sinus here - continue home eliquis, amiodarone, carvedilol 3. HTN: -bp controlled, holding spironolactone and amlodipine 4. CKD: - monitor with lasix
[2019-01-08] MEDS: AMIODARONE HCL 200 MG TABLET (FP) PO SCH (09:31)
[2019-01-08] MEDS: FENOFIBRIC ACID 135 MG CAP PO SCH (09:31)
[2019-01-08] MEDS: FOLIC ACID 1 MG TABLET (FP) PO SCH (09:31)
[2019-01-08] MEDS: GABAPENTIN 300 MG CAPSULE (FP) PO SCH (09:31)
[2019-01-08] MEDS: CARVEDILOL 12.5 MG TABLET (FP) PO SCH ×2 (09:31→22:28)
[2019-01-08] MEDS: APIXABAN 5 MG TABLET PO SCH ×2 (09:31→22:28)
[2019-01-08] MEDS: BUDESONIDE/FORMETEROL FUMARATE 80/4.5 mcg INHALER IH SCH ×2 (09:32→22:28)
[2019-01-08] MEDS: ATOVAQUONE 750 MG/5 ML (UNIT-DOSE PACKAGING) PO SCH (09:32)
[2019-01-08 10:10] LABS: ANTIGLOMERULAR BASEMENT MEN.AB 2 units (0-20)
--- NOTE | 2019-01-08 11:26 | PN ---
Progress Note, Physician History of Present Illness: patient stable no new issues - Current Medication List Current Medications: Active Medications Acetaminophen (Tylenol -) 650 mg PO Q6H PRN PRN Reason: FEVER Last Admin: 01/08/19 09:32 Dose: 650 mg Albuterol/Ipratropium (Duoneb -) 1 amp NEB Q4H PRN PRN Reason: SHORTNESS OF BREATH Last Admin: 01/08/19 04:18 Dose: 1 amp Amiodarone HCl (Cordarone -) 200 mg PO DAILY [facility] Last Admin: 01/08/19 09:31 Dose: 200 mg Apixaban (Eliquis -) 5 mg PO BID [facility] Last Admin: 01/08/19 09:31 Dose: 5 mg Atovaquone (Mepron -) 1,500 mg PO DAILY [facility] Last Admin: 01/08/19 09:32 Dose: 1,500 mg Budesonide/Formoterol Fumarate (Symbicort 80/4.5mcg -) 2 puff IH BID [facility] Last Admin: 01/08/19 09:32 Dose: 2 puff Carvedilol (Coreg -) 12.5 mg PO BID [facility] Last Admin: 01/08/19 09:31 Dose: 12.5 mg Fenofibric Acid (Trilipix -) 135 mg PO DAILY [facility] Last Admin: 01/08/19 09:31 Dose: 135 mg Folic Acid (Folic Acid -) 1 mg PO DAILY [facility] Last Admin: 01/08/19 09:31 Dose: 1 mg Furosemide (Lasix Injection -) 80 mg IVPUSH BID@0600,1400 [facility] Last Admin: 01/08/19 06:18 Dose: 80 mg Gabapentin (Neurontin -) 300 mg PO DAILY [facility] Last Admin: 01/08/19 09:31 Dose: 300 mg - Objective Vital Signs: Vital Signs Temperature 97.8 F 01/08/19 08:08 Pulse Rate 83 01/08/19 08:08 Respiratory Rate 20 01/08/19 08:12 Blood Pressure 104/58 L 01/08/19 08:08 O2 Sat by Pulse Oximetry (%) 92 L 01/08/19 08:12 Constitutional: Yes: Calm Cardiovascular: Yes: Regular Rate and Rhythm Respiratory: Yes: Regular, CTA Bilaterally, On Nasal O2 Musculoskeletal: Yes: WNL Extremities: Yes: WNL Neurological: Yes: Alert, Oriented Psychiatric: Yes: Alert Labs: CBC, BMP 01/05/19 06:31 01/08/19 05:00 INR, PTT INR Cancelled 01/04/19 21:17 Assessment/Plan SOB due History of Constrictive Pericarditis History of Mesothelioma AFib CHF HTN stable consider nutrition protein shakes rest as per the team
--- NOTE | 2019-01-08 12:02 | PN ---
Progress Note, Physician History of Present Illness: Pt seen and examined at bedside. He does not feel that his breathing is improved however he feels that his lower ext are a little better. - Current Medication List Current Medications: Active Medications Acetaminophen (Tylenol -) 650 mg PO Q6H PRN PRN Reason: FEVER Last Admin: 01/08/19 09:32 Dose: 650 mg Albuterol/Ipratropium (Duoneb -) 1 amp NEB Q4H PRN PRN Reason: SHORTNESS OF BREATH Last Admin: 01/08/19 04:18 Dose: 1 amp Amiodarone HCl (Cordarone -) 200 mg PO DAILY [facility] Last Admin: 01/08/19 09:31 Dose: 200 mg Apixaban (Eliquis -) 5 mg PO BID [facility] Last Admin: 01/08/19 09:31 Dose: 5 mg Atovaquone (Mepron -) 1,500 mg PO DAILY [facility] Last Admin: 01/08/19 09:32 Dose: 1,500 mg Budesonide/Formoterol Fumarate (Symbicort 80/4.5mcg -) 2 puff IH BID [facility] Last Admin: 01/08/19 09:32 Dose: 2 puff Carvedilol (Coreg -) 12.5 mg PO BID [facility] Last Admin: 01/08/19 09:31 Dose: 12.5 mg Fenofibric Acid (Trilipix -) 135 mg PO DAILY [facility] Last Admin: 01/08/19 09:31 Dose: 135 mg Folic Acid (Folic Acid -) 1 mg PO DAILY [facility] Last Admin: 01/08/19 09:31 Dose: 1 mg Furosemide (Lasix Injection -) 80 mg IVPUSH BID@0600,1400 [facility] Last Admin: 01/08/19 06:18 Dose: 80 mg Gabapentin (Neurontin -) 300 mg PO DAILY [facility] Last Admin: 01/08/19 09:31 Dose: 300 mg - Objective Vital Signs: Vital Signs Temperature 97.8 F 01/08/19 08:08 Pulse Rate 83 01/08/19 08:08 Respiratory Rate 20 01/08/19 08:12 Blood Pressure 104/58 L 01/08/19 08:08 O2 Sat by Pulse Oximetry (%) 92 L 01/08/19 08:12 Constitutional: Yes: Calm Eyes: Yes: Conjunctiva Clear HENT: Yes: Atraumatic Neck: Yes: Supple Cardiovascular: Yes: S1, S2 Respiratory: Yes: On Nasal O2, Rhonchi Gastrointestinal: Yes: Normal Bowel Sounds, Soft Genitourinary: Yes: WNL Musculoskeletal: Yes: WNL Edema: Yes Edema: LLE: 3+, RLE: 3+ Neurological: Yes: Oriented Psychiatric: Yes: Oriented Labs: CBC, BMP 01/05/19 06:31 01/08/19 05:00 INR, PTT INR Cancelled 01/04/19 21:17 Problem List - Problems (1) CKD (chronic kidney disease) Code(s): N18.9 - CHRONIC KIDNEY DISEASE, UNSPECIFIED (2) COPD (chronic obstructive pulmonary disease) Code(s): J44.9 - CHRONIC OBSTRUCTIVE PULMONARY DISEASE, UNSPECIFIED Qualifiers: COPD type: unspecified COPD Qualified Code(s): J44.9 - Chronic obstructive pulmonary disease, unspecified (3) Mesothelioma (pleural) Code(s): C45.0 - MESOTHELIOMA OF PLEURA (4) Pedal edema Code(s): R60.0 - LOCALIZED EDEMA Assessment/Plan Current Medications Generic Name Dose Route Start Last Admin Trade Name Freq PRN Reason Stop Dose Admin Acetaminophen 650 mg 01/04/19 21:51 01/08/19 09:32 Tylenol - PO 650 mg Q6H PRN Administration FEVER Albuterol/Ipratropium 1 amp 01/04/19 21:52 01/08/19 04:18 Duoneb - NEB 1 amp Q4H PRN Administration SHORTNESS OF BREATH Amiodarone HCl 200 mg 01/05/19 10:00 01/08/19 09:31 Cordarone - PO 200 mg DAILY [facility] Administration Apixaban 5 mg 01/04/19 22:00 01/08/19 09:31 Eliquis - PO 5 mg BID [facility] Administration Atovaquone 1,500 mg 01/05/19 10:00 01/08/19 09:32 Mepron - PO 1,500 mg DAILY [facility] Administration Budesonide/Formoterol Fumarate 2 puff 01/04/19 22:00 01/08/19 09:32 Symbicort 80/4.5mcg - IH 2 puff BID [facility] Administration Carvedilol 12.5 mg 01/04/19 22:00 01/08/19 09:31 Coreg - PO 12.5 mg BID [facility] Administration Fenofibric Acid 135 mg 01/05/19 10:00 01/08/19 09:31 Trilipix - PO 135 mg DAILY [facility] Administration Folic Acid 1 mg 01/05/19 10:00 01/08/19 09:31 Folic Acid - PO 1 mg DAILY [facility] Administration Furosemide 80 mg 01/06/19 11:01 01/08/19 06:18 Lasix Injection - IVPUSH 80 mg BID@0600,1400 [facility] Administration Gabapentin 300 mg 01/05/19 10:00 01/08/19 09:31 Neurontin - PO 300 mg DAILY [facility] Administration Laboratory Tests 01/06/19 01/06/19 06:03 06:03 YOMAIRA M-Osorio Pending SHAMIKA Screen Pending c-ANCA Pending Proteinase 3 (PR3) Pending p-ANCA Pending Atypical p-ANCA Pending Myeloperoxidase Ab Pending Double Strand DNA Ab Pending Glomerular Base Memb Ab 2 Impression 1. CKD 2. mesothelioma 3. HTN 4. hyperkalemia 5. a-fib 6. 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
[2019-01-08] MEDS ORDERED: METOLAZONE 5 MG TABLET PO ONE (13:30)
--- NOTE | 2019-01-08 16:54 | PN ---
Progress Note (short form) - Note Progress Note: PULMONARY PULMONARY RESTING COMFORTABLY VSS/AFEBRILE GENERAL: Awake, alert, mildly tachypneic at rest HEAD: Normal with no signs of trauma. EYES: sclera anicteric, conjunctiva clear. No lid lag. EARS, NOSE, THROAT: Ears normal, nares patent, oropharynx clear without exudates. Moist mucous membranes. NECK: Normal range of motion, supple without lymphadenopathy, JVD, or masses. LUNGS: bibasilar rhonchi, no wheeze HEART: Regular rate and rhythm, normal S1 and S2 without murmur, rub or gallop. ABDOMEN: Soft, (?) ascites, nontender, distended, normoactive bowel sounds, no guarding, no rebound, no masses. MUSCULOSKELETAL: Normal range of motion at all joints. No bony deformities or tenderness. No CVA tenderness. UPPER EXTREMITIES: 2+ pulses, warm, well-perfused. No cyanosis. No clubbing. Cap refill <2 seconds. No peripheral edema. LOWER EXTREMITIES: (+) 4 edema NEUROLOGICAL: Non-focal PSYCHIATRIC: Cooperative. Good eye contact. Appropriate mood and affect. SKIN: LE venous stasis LABS/MEDS/NOTES/IMAGES REVIEWED ASSESSMENT/PLAN: acute decompensated heart failure History of Constrictive Pericarditis History of Mesothelioma on chemotherapy AFib on Eliquis CHF HTN Do not suspect PNA or infectious process Symbicort BID Duiresis as tolerated O2 as needed Daily weights Monitor off ABX Continue Ellen BEARDEN MD
[2019-01-08 18:09] LABS: ATYPICAL pANCA <1:20 titer (Neg:<1:20); C-ANCA <1:20 titer (Neg:<1:20); P-ANCA <1:20 titer (Neg:<1:20)
--- NOTE | 2019-01-08 18:23 | PN ---
Progress Note (short form) - Note Progress Note: Patient seen and examined SOB and dyspneic on minimal exeertion Anorechtic Creatinine slowly increasing LFT's improved Weight essentially unchanged since hospitilized Last Vital Signs Temp Pulse Resp BP Pulse Ox 97.6 F 81 20 100/65 92 L 01/08/19 14:00 01/08/19 14:00 01/08/19 08:12 01/08/19 14:00 01/08/19 08:12 CBC, BMP 01/05/19 06:31 01/08/19 05:00 HEENT: WILLIAMS, EOM Intact Cor: RSR, No murmurs, No gallops Lungs: decrease BS bilaterally Abd: Soft, Normal bowel sounds, No organomegaly, distended Ext: LE edema Skin: No rashes, Integument intact Current Medications Generic Name Dose Route Start Last Admin Trade Name Freq PRN Reason Stop Dose Admin Acetaminophen 650 mg 01/04/19 21:51 01/08/19 09:32 Tylenol - PO 650 mg Q6H PRN Administration FEVER Albuterol/Ipratropium 1 amp 01/04/19 21:52 01/08/19 04:18 Duoneb - NEB 1 amp Q4H PRN Administration SHORTNESS OF BREATH Amiodarone HCl 200 mg 01/05/19 10:00 01/08/19 09:31 Cordarone - PO 200 mg DAILY [facility] Administration Apixaban 5 mg 01/04/19 22:00 01/08/19 09:31 Eliquis - PO 5 mg BID [facility] Administration Atovaquone 1,500 mg 01/05/19 10:00 01/08/19 09:32 Mepron - PO 1,500 mg DAILY [facility] Administration Budesonide/Formoterol Fumarate 2 puff 01/04/19 22:00 01/08/19 09:32 Symbicort 80/4.5mcg - IH 2 puff BID [facility] Administration Carvedilol 12.5 mg 01/04/19 22:00 01/08/19 09:31 Coreg - PO 12.5 mg BID [facility] Administration Fenofibric Acid 135 mg 01/05/19 10:00 01/08/19 09:31 Trilipix - PO 135 mg DAILY [facility] Administration Folic Acid 1 mg 01/05/19 10:00 07/12/19 09:31 Folic Acid - PO 1 mg DAILY [facility] Administration Furosemide 80 mg 01/06/19 11:01 01/08/19 14:34 Lasix Injection - IVPUSH 80 mg BID@0600,1400 [facility] Administration Gabapentin 300 mg 01/05/19 10:00 01/08/19 09:31 Neurontin - PO 300 mg DAILY [facility] Administration Impression: Mesothelioma Respiratory failure CKD/CYNDIE CHF Volume overload Recommendations per cardiology/renal for fluid overload Please follow up on CBC- patient is s/p chemotherapy cycle 1 , day 5 of carboplatinum, gemcitibine
[2019-01-08] MEDS: POLYETHYLENE GLYCOL 3350 119 GM BTL PO SCH (19:21)
--- NOTE | 2019-01-08 19:22 | PN ---
Progress Note, Physician History of Present Illness: anxious - Current Medication List Current Medications: Active Medications Acetaminophen (Tylenol -) 650 mg PO Q6H PRN PRN Reason: FEVER Last Admin: 01/08/19 09:32 Dose: 650 mg Albuterol/Ipratropium (Duoneb -) 1 amp NEB Q4H PRN PRN Reason: SHORTNESS OF BREATH Last Admin: 01/08/19 04:18 Dose: 1 amp Amiodarone HCl (Cordarone -) 200 mg PO DAILY [facility] Last Admin: 01/08/19 09:31 Dose: 200 mg Apixaban (Eliquis -) 5 mg PO BID [facility] Last Admin: 01/08/19 09:31 Dose: 5 mg Atovaquone (Mepron -) 1,500 mg PO DAILY [facility] Last Admin: 01/08/19 09:32 Dose: 1,500 mg Budesonide/Formoterol Fumarate (Symbicort 80/4.5mcg -) 2 puff IH BID [facility] Last Admin: 01/08/19 09:32 Dose: 2 puff Carvedilol (Coreg -) 12.5 mg PO BID [facility] Last Admin: 01/08/19 09:31 Dose: 12.5 mg Dronabinol (Marinol -) 5 mg PO BIDWM [facility] Fenofibric Acid (Trilipix -) 135 mg PO DAILY [facility] Last Admin: 01/08/19 09:31 Dose: 135 mg Folic Acid (Folic Acid -) 1 mg PO DAILY [facility] Last Admin: 01/08/19 09:31 Dose: 1 mg Furosemide (Lasix Injection -) 80 mg IVPUSH BID@0600,1400 [facility] Last Admin: 01/08/19 14:34 Dose: 80 mg Gabapentin (Neurontin -) 300 mg PO DAILY [facility] Last Admin: 01/08/19 09:31 Dose: 300 mg Polyethylene Glycol (Miralax (For Daily Use) -) 17 gm PO DAILY [facility] Last Admin: 01/08/19 19:21 Dose: 17 grams - Objective Vital Signs: Vital Signs Temperature 97.6 F 01/08/19 14:00 Pulse Rate 81 01/08/19 14:00 Respiratory Rate 20 01/08/19 08:12 Blood Pressure 100/65 01/08/19 14:00 O2 Sat by Pulse Oximetry (%) 92 L 01/08/19 08:12 Constitutional: Yes: No Distress HENT: Yes: Atraumatic Neck: Yes: Supple Cardiovascular: Yes: Regular Rate and Rhythm Respiratory: Yes: Rhonchi Gastrointestinal: Yes: Normal Bowel Sounds Extremities: Yes: WNL Edema: No Peripheral Pulses WNL: Yes Neurological: Yes: Alert, Oriented Labs: CBC, BMP 01/05/19 06:31 01/08/19 05:00 INR, PTT INR Cancelled 01/04/19 21:17 Problem List - Problems (1) Pedal edema Assessment/Plan: on diuretics nephro on board Code(s): R60.0 - LOCALIZED EDEMA (2) CYNDIE (acute kidney injury) Code(s): N17.9 - ACUTE KIDNEY FAILURE, UNSPECIFIED (3) Acute diastolic heart failure Code(s): I50.31 - ACUTE DIASTOLIC (CONGESTIVE) HEART FAILURE (4) Afib Assessment/Plan: on meds on AC Code(s): I48.91 - UNSPECIFIED ATRIAL FIBRILLATION (5) CHF exacerbation Code(s): I50.9 - HEART FAILURE, UNSPECIFIED Qualifiers: Heart failure type: unspecified Qualified Code(s): I50.9 - Heart failure, unspecified (6) COPD (chronic obstructive pulmonary disease) Assessment/Plan: prn nebs and oxygen Code(s): J44.9 - CHRONIC OBSTRUCTIVE PULMONARY DISEASE, UNSPECIFIED Qualifiers: COPD type: unspecified COPD Qualified Code(s): J44.9 - Chronic obstructive pulmonary disease, unspecified (7) HTN (hypertension) Code(s): I10 - ESSENTIAL (PRIMARY) HYPERTENSION (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
[2019-01-08 19:48] VITALS: BMI 32.8
[2019-01-09] MEDS: ALBUTEROL SO4 2.5/IPRATROPIUM 0.5 INH SOL 3 ML VIAL.NEB. NEB PRN ×2 (03:28→22:13)
[2019-01-09] MEDS: guaiFENesin 200 MG/10 ML 10 ML UNIT-DOSE CUPS PO PRN ×2 (04:23→21:35)
[2019-01-09] MEDS: FUROSEMIDE 40 MG/4 ML INJECTABLE VIAL IVPUSH SCH ×2 (07:07→14:44)
[2019-01-09 08:00] LABS: BASO % 0.1 % (0-2.0); EOS % 0.6 % (0-4.5); HEMATOCRIT 23.6 % (35.4-49); HEMOGLOBIN 7.7 GM/dL (11.7-16.9); LYMPH % 7.1 % (8-40); MCH 26.6 pg (25.7-33.7); MCHC 32.7 g/dl (32.0-35.9); MEAN CELL VOLUME 81.4 fl (80-96); MEAN PLT VOLUME 8.8 fl (7.5-11.1); MONO % 0.8 % (3.8-10.2); NEUT % 91.4 % (42.8-82.8); RDW 24.4 % (11.9-15.9); WHITE BLOOD COUNT 2.3 K/mm3 (4.0-10.0)
[2019-01-09 08:41] LABS: PLATELET COUNT 104 K/MM3 (134-434)
[2019-01-09 08:59] LABS: ALBUMIN 2.2 g/dl (3.4-5.0); BILIRUBIN,TOTAL 2.3 mg/dL (0.2-1); CREATININE 2.4 mg/dL (0.55-1.3); POTASSIUM 3.7 mmol/L (3.5-5.1); TOT PROT 5.3 g/dl (6.4-8.2)
--- NOTE | 2019-01-09 09:41 | PN ---
Progress Note (short form) - Note Progress Note: URGENT NOTATION Medical coverage (Dr Herrera) Considerable drop in H/h noted: PLAN: Transfuse 1 U PC; hold a/c for today ....................... Dr Herrera
[2019-01-09] MEDS ORDERED: FAMOTIDINE 20 MG/50 ML IVPB 20 MG/50 ML MG IVPB SCH (10:00)
[2019-01-09] MEDS: FOLIC ACID 1 MG TABLET (FP) PO SCH (10:05)
[2019-01-09] MEDS: GABAPENTIN 300 MG CAPSULE (FP) PO SCH (10:05)
[2019-01-09] MEDS: FENOFIBRIC ACID 135 MG CAP PO SCH (10:05)
[2019-01-09] MEDS: ATOVAQUONE 750 MG/5 ML (UNIT-DOSE PACKAGING) PO SCH (10:05)
[2019-01-09] MEDS: AMIODARONE HCL 200 MG TABLET (FP) PO SCH (10:05)
[2019-01-09] MEDS: CARVEDILOL 12.5 MG TABLET (FP) PO SCH ×2 (10:05→21:35)
[2019-01-09] MEDS: BUDESONIDE/FORMETEROL FUMARATE 80/4.5 mcg INHALER IH SCH ×2 (10:06→21:36)
[2019-01-09] MEDS: POLYETHYLENE GLYCOL 3350 119 GM BTL PO SCH (10:06)
[2019-01-09] MEDS: DRONABINOL 5 MG CAPSULE PO SCH ×2 (10:08→17:48)
--- NOTE | 2019-01-09 11:08 | PN ---
Progress Note (short form) - Note Progress Note: PULMONARY UNABLE TO PRODUCE SPUTUM HGB DROP NOTED VSS/AFEBRILE GENERAL: Awake, alert, mildly tachypneic at rest HEAD: Normal with no signs of trauma. EYES: sclera anicteric, conjunctiva clear. No lid lag. EARS, NOSE, THROAT: Ears normal, nares patent, oropharynx clear without exudates. Moist mucous membranes. NECK: Normal range of motion, supple without lymphadenopathy, JVD, or masses. LUNGS: bibasilar rhonchi, no wheeze HEART: Regular rate and rhythm, normal S1 and S2 without murmur, rub or gallop. ABDOMEN: Soft, (?) ascites, nontender, distended, normoactive bowel sounds, no guarding, no rebound, no masses. MUSCULOSKELETAL: Normal range of motion at all joints. No bony deformities or tenderness. No CVA tenderness. UPPER EXTREMITIES: 2+ pulses, warm, well-perfused. No cyanosis. No clubbing. Cap refill <2 seconds. No peripheral edema. LOWER EXTREMITIES: (+) 4 edema NEUROLOGICAL: Non-focal PSYCHIATRIC: Cooperative. Good eye contact. Appropriate mood and affect. 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
--- NOTE | 2019-01-09 11:57 | PN ---
Progress Note, Physician History of Present Illness: no specific issues weakness drop in h and h - Current Medication List Current Medications: Active Medications Acetaminophen (Tylenol -) 650 mg PO Q6H PRN PRN Reason: FEVER Last Admin: 01/08/19 09:32 Dose: 650 mg Albuterol/Ipratropium (Duoneb -) 1 amp NEB Q4H PRN PRN Reason: SHORTNESS OF BREATH Last Admin: 01/09/19 03:28 Dose: 1 amp Amiodarone HCl (Cordarone -) 200 mg PO DAILY [facility] Last Admin: 01/09/19 10:05 Dose: 200 mg Apixaban (Eliquis -) 5 mg PO BID [facility] Last Admin: 01/08/19 22:28 Dose: 5 mg Atovaquone (Mepron -) 1,500 mg PO DAILY [facility] Last Admin: 01/09/19 10:05 Dose: 1,500 mg Budesonide/Formoterol Fumarate (Symbicort 80/4.5mcg -) 2 puff IH BID [facility] Last Admin: 01/09/19 10:06 Dose: 2 puff Carvedilol (Coreg -) 12.5 mg PO BID [facility] Last Admin: 01/09/19 10:05 Dose: 12.5 mg Dronabinol (Marinol -) 5 mg PO BIDWM [facility] Last Admin: 01/09/19 10:08 Dose: Not Given Fenofibric Acid (Trilipix -) 135 mg PO DAILY [facility] Last Admin: 01/09/19 10:05 Dose: 135 mg Folic Acid (Folic Acid -) 1 mg PO DAILY [facility] Last Admin: 01/09/19 10:05 Dose: 1 mg Furosemide (Lasix Injection -) 80 mg IVPUSH BID@0600,1400 [facility] Last Admin: 01/09/19 07:07 Dose: 80 mg Gabapentin (Neurontin -) 300 mg PO DAILY [facility] Last Admin: 01/09/19 10:05 Dose: 300 mg Guaifenesin (Robitussin -) 10 ml PO Q6H PRN PRN Reason: COUGH Last Admin: 01/09/19 04:23 Dose: 10 ml Famotidine/Sodium Chloride (Pepcid 20 Mg Premixed Ivpb -) 20 mg in 50 mls @ 100 mls/hr IVPB DAILY [facility] Metolazone (Zaroxolyn -) 5 mg PO ONCE ONE Stop: 01/09/19 13:31 Polyethylene Glycol (Miralax (For Daily Use) -) 17 gm PO DAILY [facility] Last Admin: 01/09/19 10:06 Dose: 17 grams - Objective Vital Signs: Vital Signs Temperature 98.9 F 01/09/19 06:03 Pulse Rate 81 01/09/19 06:03 Respiratory Rate 20 01/09/19 09:00 Blood Pressure 104/63 01/09/19 06:03 O2 Sat by Pulse Oximetry (%) 93 L 01/09/19 09:00 Constitutional: Yes: Calm, Mild Distress Cardiovascular: Yes: S1, S2 Respiratory: Yes: Regular, CTA Bilaterally Gastrointestinal: Yes: Normal Bowel Sounds, Soft Musculoskeletal: Yes: WNL Extremities: Yes: Other Neurological: Yes: Alert, Oriented Psychiatric: Yes: Alert, Oriented Labs: CBC, BMP 01/09/19 05:24 01/09/19 05:24 INR, PTT INR Cancelled 01/04/19 21:17 Assessment/Plan SOB due History of Constrictive Pericarditis History of Mesothelioma AFib CHF HTN stable consider nutrition protein shakes rest as per the team
--- NOTE | 2019-01-09 12:33 | PN ---
Progress Note (short form) - Note Progress Note: s: still short of breath, edema unchanged. no chest pain, palps, dizziness no cigs Current Medications Generic Name Dose Route Start Last Admin Trade Name Freq PRN Reason Stop Dose Admin Acetaminophen 650 mg 01/04/19 21:51 01/08/19 09:32 Tylenol - PO 650 mg Q6H PRN Administration FEVER Albuterol/Ipratropium 1 amp 01/04/19 21:52 01/09/19 03:28 Duoneb - NEB 1 amp Q4H PRN Administration SHORTNESS OF BREATH Amiodarone HCl 200 mg 01/05/19 10:00 01/09/19 10:05 Cordarone - PO 200 mg DAILY [facility] Administration Apixaban 5 mg 01/04/19 22:00 01/08/19 22:28 Eliquis - PO 5 mg BID [facility] Administration Atovaquone 1,500 mg 01/05/19 10:00 01/09/19 10:05 Mepron - PO 1,500 mg DAILY [facility] Administration Budesonide/Formoterol Fumarate 2 puff 01/04/19 22:00 01/09/19 10:06 Symbicort 80/4.5mcg - IH 2 puff BID [facility] Administration Carvedilol 12.5 mg 01/04/19 22:00 01/09/19 10:05 Coreg - PO 12.5 mg BID [facility] Administration Dronabinol 5 mg 01/09/19 08:00 01/09/19 10:08 Marinol - PO Not Given BIDWM [facility] Fenofibric Acid 135 mg 01/05/19 10:00 01/09/19 10:05 Trilipix - PO 135 mg DAILY [facility] Administration Folic Acid 1 mg 01/05/19 10:00 01/09/19 10:05 Folic Acid - PO 1 mg DAILY [facility] Administration Furosemide 80 mg 01/06/19 11:01 01/09/19 07:07 Lasix Injection - IVPUSH 80 mg BID@0600,1400 [facility] Administration Gabapentin 300 mg 01/05/19 10:00 01/09/19 10:05 Neurontin - PO 300 mg DAILY [facility] Administration Guaifenesin 10 ml 01/09/19 04:11 01/09/19 04:23 Robitussin - PO 10 ml Q6H PRN Administration COUGH Famotidine/Sodium Chloride 20 mg in 50 mls @ 100 mls/hr 01/09/19 10:06 Pepcid 20 Mg Premixed Ivpb - IVPB DAILY [facility] Metolazone 5 mg 01/09/19 13:30 Zaroxolyn - PO 01/09/19 13:31 ONCE ONE Polyethylene Glycol 17 gm 01/08/19 18:30 01/09/19 10:06 Miralax (For Daily Use) - PO 17 grams DAILY [facility] Administration Vital Signs Period Temp Pulse Resp BP Sys/Clements Pulse Ox Last 24 Hr 97.6 F-98.9 F 81-90 18-20 100-109/60-79 93-93 Constitutional: Yes: Well Nourished, No Distress Eyes: No: Sclera Icterus Respiratory: Yes: CTA Bilaterally, Diminished (bases). Gastrointestinal: Yes: Normal Bowel Sounds, Distention. No: Hepatomegaly, Palpable Mass, Tenderness Cardiovascular: Yes: Regular Rate and Rhythm JVD: No Carotid Bruit: No PMI: Non-Displaced Heart Sounds: Yes: S1, S2. No: Gallop Murmur: No: Systolic Murmur, Diastolic Murmur Extremities: No: Cool, Cyanosis Edema: 2+ cristian lower ext edema Integumentary: No: Jaundice Neurological: Yes: Alert, Oriented (x3) Psychiatric: No: Agitated CBC, BMP 01/09/19 05:24 01/09/19 05:24 ECG:sinus tach, low voltage, inferolat twi echo in 10/15 Dr. Meyer: normal LV, no pericardial effusion (no other signif abnormality) cath 09/2017 nl cors echo 06/2018 nl LV function, mildly reduced RV function, borderline LA enlargement, mild MR, mild TR, RVSP nl, small pericardial effusion <1 cm, no echo indication of tamponade echo 08/2018 [facility] with definity nl LV function, mild RV dilation, mod decreased RV function, ao sclerosis, mild MR, mild TR, minimal pericardial effusion, valves not well visualized cardiac MRI 08/2018 [facility] nl LV/RV size with mild biventricular LV dysfunction, small circumfrential pericardial effusion with increased ventricular interdependence, associated delayed enhancement of pericardium, findings c/w constrictive pericarditis. nonpsecific intramyocardial LGE seen in setting of NICM, findings c/w mesothelioma in L hemithorax, mod biatrial enlargement tele: sinus cxr: congestive changes a/p: 1. Constrictive pericarditis, acute diastolic chf, mesothelioma: - recently admitted 08/2018 for CHF exac, transferred to [facility] found to have constrictive pericarditis 2/2 mesothelioma - was evaluated by CT surgery at [facility] - not a candidate for pericardial stripping - onc consulted - sees Dr. Newman, undergoing chemotherapy - added metolazone 01/08, will do the same today with iv lasix. Vol not improving and cr rising, may need to increase to lasix 80 tid, renal following as well. - continue carvedilol, holding spironolactone for hyperkalemia - monitor daily weights, lytes, Cr 2.PAF: - s/p ANA/CV at [facility] 08/2018, in sinus here - continue home eliquis, amiodarone, carvedilol 3. HTN: -bp controlled, holding spironolactone and amlodipine 4. CKD: - monitor with lasix
[2019-01-09] MEDS ORDERED: METOLAZONE 5 MG TABLET PO ONE (13:30)
[2019-01-09 14:38] LABS: ANISOCYTOSIS 1+; MACROCYTOSIS 1+; OVALOCYTE 1+; PLATELET ESTIMATE DECREASED
--- NOTE | 2019-01-09 14:38 | PN ---
Progress Note (short form) - Note Progress Note: >>>>>>>>>>>>>>>>>>>>> MEDICAL COVERAGE NOTE (for Dr Ramirez) <<<<<<<<<<<<<< <<<<<<<<<<<<<<<<<<<< Current Medications Acetaminophen (Tylenol -) 650 mg PO Q6H PRN PRN Reason: FEVER Last Admin: 01/08/19 09:32 Dose: 650 mg Albuterol/Ipratropium (Duoneb -) 1 amp NEB Q4H PRN PRN Reason: SHORTNESS OF BREATH Last Admin: 01/09/19 03:28 Dose: 1 amp Amiodarone HCl (Cordarone -) 200 mg PO DAILY [facility] Last Admin: 01/09/19 10:05 Dose: 200 mg Apixaban (Eliquis -) 5 mg PO BID [facility] Last Admin: 01/08/19 22:28 Dose: 5 mg Atovaquone (Mepron -) 1,500 mg PO DAILY [facility] Last Admin: 01/09/19 10:05 Dose: 1,500 mg Budesonide/Formoterol Fumarate (Symbicort 80/4.5mcg -) 2 puff IH BID [facility] Last Admin: 01/09/19 10:06 Dose: 2 puff Carvedilol (Coreg -) 12.5 mg PO BID [facility] Last Admin: 01/09/19 10:05 Dose: 12.5 mg Dronabinol (Marinol -) 5 mg PO BIDWM [facility] Last Admin: 01/09/19 10:08 Dose: Not Given Fenofibric Acid (Trilipix -) 135 mg PO DAILY [facility] Last Admin: 01/09/19 10:05 Dose: 135 mg Folic Acid (Folic Acid -) 1 mg PO DAILY [facility] Last Admin: 01/09/19 10:05 Dose: 1 mg Furosemide (Lasix Injection -) 80 mg IVPUSH BID@0600,1400 [facility] Last Admin: 01/09/19 07:07 Dose: 80 mg Gabapentin (Neurontin -) 300 mg PO DAILY [facility] Last Admin: 01/09/19 10:05 Dose: 300 mg Guaifenesin (Robitussin -) 10 ml PO Q6H PRN PRN Reason: COUGH Last Admin: 01/09/19 04:23 Dose: 10 ml Famotidine/Sodium Chloride (Pepcid 20 Mg Premixed Ivpb -) 20 mg in 50 mls @ 100 mls/hr IVPB DAILY [facility] Polyethylene Glycol (Miralax (For Daily Use) -) 17 gm PO DAILY [facility] Last Admin: 01/09/19 10:06 Dose: 17 grams Laboratory Results - last 24 hr 01/06/19 01/09/19 01/09/19 06:03 05:24 05:24 WBC 2.3 L RBC 2.90 L Hgb 7.7 L Hct 23.6 L D MCV 81.4 MCH 26.6 MCHC 32.7 RDW 24.4 H Plt Count 104 L D MPV 8.8 Absolute Neuts (auto) 2.1 Neutrophils % 91.4 H Lymphocytes % 7.1 L D Monocytes % 0.8 L Eosinophils % 0.6 D Basophils % 0.1 Nucleated RBC % 0 Sodium 140 Potassium 3.7 Chloride 99 Carbon Dioxide 31 Anion Gap 10 BUN 77.0 H Creatinine 2.4 H Est GFR (CKD-EPI)AfAm 30.96 Est GFR (CKD-EPI)NonAf 26.72 Random Glucose 118 H Calcium 8.0 L Total Bilirubin 2.3 H AST 38 H ALT 103 H Alkaline Phosphatase 120 H Total Protein 5.3 L Albumin 2.2 L TSH 0.30 L D SHAMIKA Screen Negative c-ANCA <1:20 Proteinase 3 (PR3) <3.5 p-ANCA <1:20 Atypical p-ANCA <1:20 Myeloperoxidase Ab <9.0 Blood Type Antibody Screen Crossmatch 01/09/19 01/09/19 10:13 12:00 WBC RBC Hgb Hct MCV MCH MCHC RDW Plt Count MPV Absolute Neuts (auto) Neutrophils % Lymphocytes % Monocytes % Eosinophils % Basophils % Nucleated RBC % Sodium Potassium Chloride Carbon Dioxide Anion Gap BUN Creatinine Est GFR (CKD-EPI)AfAm Est GFR (CKD-EPI)NonAf Random Glucose Calcium Total Bilirubin AST ALT Alkaline Phosphatase Total Protein Albumin TSH SHAMIKA Screen c-ANCA Proteinase 3 (PR3) p-ANCA Atypical p-ANCA Myeloperoxidase Ab Blood Type B POSITIVE B POSITIVE Antibody Screen Negative Crossmatch See Detail Vital Signs Temp 98.9 F 01/09/19 06:03 Pulse 82 01/09/19 10:00 Resp 18 01/09/19 10:00 BP 109/61 01/09/19 10:00 Pulse Ox 93 L 01/09/19 09:00 Intake & Output 01/08/19 01/09/19 01/09/19 23:59 11:59 23:59 Intake Total 40 840 Output Total 200 1400 Balance -160 -560 Weight 215 lb 12.8 oz Intake: IV 40 saline lock 40 Oral 840 Output: Urine 200 1400 Void 200 1400 Other: Voiding Method Urinal Urinal Urinal Bowel Movement No Yes # Bowel Movements 1 Weight Measurement Method Standing Scale CC: weak ``````````````````````` skin--no overt rashes eyes--milldy icteric oral--no droop heart--RR lungs--distant BS, unlabored abd--BS+, distended; diffuse lower non jamee tenderness R>L ext--bilat pitting edema; to the knees neuro--awake; verbal, good eye contact; speech is fluent; thoughts organized and able to give answers relevant to questions; moves all extrem on command; hyperalgesic skin of the LE's ````````````````````````` Summ > anemia--H/H notably lower than on previous CBC; Mild pancytopenia noted, ( screen shows neg Abs)cause not clear. He denies gross bloody or tarry stools, but c/o abd tenderness. PLAN: transfuse 1 UPC; stool for OB; Abd CT, serial CBCs ; Hem f/u. Hold a/c; start Pepcid > ATF--seems to be in NSR; rate controlled with Amiod & BB. PLAN: need to hold a /c > Edema--multifactoral; cardiac vs hepatic?. There has been little change in weight inspite of the IV diuretic he has gotten. > CHF--2nd pericardial effusion (accounting for Cardiolmegaly). Cardiology documenting NL LV funct; and impaired RV. Echo done as OP. PLAN: chest CT > High LFTs--could be 2nd RV dysf (hepatic congestion) or drug effects > renal insuff--intravasc contracted (2nd use of Lasix) or hypoperfusion 2nd anemia; GI Bleed cannot be r/o at this time (causing high Bun) > COPD--from past exposures > Mesothelioma--had been receiving Chemo now suspended ~~~~~~~~~~~~~~~ Dr Herrera
[2019-01-09] MEDS ORDERED: DRONABINOL 5 MG CAPSULE PO SCH (17:30)
[2019-01-09] MEDS: DRONABINOL 2.5 MG CAPSULE PO SCH (17:47)
--- NOTE | 2019-01-09 18:32 | PN ---
Progress Note, Physician History of Present Illness: Continues to have SOB, abd pain, significant leg swelling. - Current Medication List Current Medications: Active Medications Acetaminophen (Tylenol -) 650 mg PO Q6H PRN PRN Reason: FEVER Last Admin: 01/08/19 09:32 Dose: 650 mg Albuterol/Ipratropium (Duoneb -) 1 amp NEB Q4H PRN PRN Reason: SHORTNESS OF BREATH Last Admin: 01/09/19 03:28 Dose: 1 amp Amiodarone HCl (Cordarone -) 200 mg PO DAILY [facility] Last Admin: 01/09/19 10:05 Dose: 200 mg Apixaban (Eliquis -) 5 mg PO BID [facility] Last Admin: 01/08/19 22:28 Dose: 5 mg Atovaquone (Mepron -) 1,500 mg PO DAILY [facility] Last Admin: 01/09/19 10:05 Dose: 1,500 mg Budesonide/Formoterol Fumarate (Symbicort 80/4.5mcg -) 2 puff IH BID [facility] Last Admin: 01/09/19 10:06 Dose: 2 puff Carvedilol (Coreg -) 12.5 mg PO BID [facility] Last Admin: 01/09/19 10:05 Dose: 12.5 mg Dronabinol (Marinol -) 5 mg PO BIDWM [facility] Last Admin: 01/09/19 17:47 Dose: 5 mg Fenofibric Acid (Trilipix -) 135 mg PO DAILY [facility] Last Admin: 01/09/19 10:05 Dose: 135 mg Folic Acid (Folic Acid -) 1 mg PO DAILY [facility] Last Admin: 01/09/19 10:05 Dose: 1 mg Furosemide (Lasix Injection -) 80 mg IVPUSH BID@0600,1400 [facility] Last Admin: 01/09/19 14:44 Dose: 80 mg Gabapentin (Neurontin -) 300 mg PO DAILY [facility] Last Admin: 01/09/19 10:05 Dose: 300 mg Guaifenesin (Robitussin -) 10 ml PO Q6H PRN PRN Reason: COUGH Last Admin: 01/09/19 04:23 Dose: 10 ml Famotidine/Sodium Chloride (Pepcid 20 Mg Premixed Ivpb -) 20 mg in 50 mls @ 100 mls/hr IVPB DAILY [facility] Polyethylene Glycol (Miralax (For Daily Use) -) 17 gm PO DAILY [facility] Last Admin: 01/09/19 10:06 Dose: 17 grams - Objective Vital Signs: Vital Signs Temperature 98.4 F 01/09/19 14:01 Pulse Rate 86 01/09/19 14:01 Respiratory Rate 20 01/09/19 14:01 Blood Pressure 101/61 01/09/19 14:01 O2 Sat by Pulse Oximetry (%) 93 L 01/09/19 09:00 Constitutional: Yes: No Distress Eyes: Yes: Conjunctiva Clear Respiratory: Yes: Regular, On Nasal O2 Gastrointestinal: Yes: Soft, Distention, Tenderness (mild, diffuse) Edema: LLE: 2+, RLE: 2+ Labs: CBC, BMP 01/09/19 05:24 01/09/19 05:24 INR, PTT INR Cancelled 01/04/19 21:17 Assessment/Plan 68M with COPD, CHF, CKD, AF on Eliquis, mesothelioma dx 2 years ago, s/p carbo/ alimta with eventual POD,then nivolumab since 12/2017, and most recently gemcitabine, c1 on 12/28 admitted with recurrent SOB and fluid overload. Being diuresed. Today Hgb 7.7 (from 10.3 on 01/04), Plt 104 (from 193). WBC also down but ANC normal. Cytopenias are expected on d12 of chemotherapy. Reasonable to evaluate with stool occult blood given AC. Continue to monitor CBC daily.
--- NOTE | 2019-01-09 19:18 | PN ---
Progress Note (short form) - Note Progress Note: 1. CKD 2. mesothelioma 3. HTN 4. hyperkalemia 5. a-fib 6. anemia 7. 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 Active Medications Acetaminophen (Tylenol -) 650 mg PO Q6H PRN PRN Reason: FEVER Last Admin: 01/08/19 09:32 Dose: 650 mg Albuterol/Ipratropium (Duoneb -) 1 amp NEB Q4H PRN PRN Reason: SHORTNESS OF BREATH Last Admin: 01/09/19 03:28 Dose: 1 amp Amiodarone HCl (Cordarone -) 200 mg PO DAILY [facility] Last Admin: 01/09/19 10:05 Dose: 200 mg Apixaban (Eliquis -) 5 mg PO BID [facility] Last Admin: 01/08/19 22:28 Dose: 5 mg Atovaquone (Mepron -) 1,500 mg PO DAILY [facility] Last Admin: 01/09/19 10:05 Dose: 1,500 mg Budesonide/Formoterol Fumarate (Symbicort 80/4.5mcg -) 2 puff IH BID [facility] Last Admin: 01/09/19 10:06 Dose: 2 puff Carvedilol (Coreg -) 12.5 mg PO BID [facility] Last Admin: 01/09/19 10:05 Dose: 12.5 mg Dronabinol (Marinol -) 5 mg PO BIDWM [facility] Last Admin: 01/09/19 17:47 Dose: 5 mg Fenofibric Acid (Trilipix -) 135 mg PO DAILY [facility] Last Admin: 01/09/19 10:05 Dose: 135 mg Folic Acid (Folic Acid -) 1 mg PO DAILY [facility] Last Admin: 01/09/19 10:05 Dose: 1 mg Furosemide (Lasix Injection -) 80 mg IVPUSH BID@0600,1400 [facility] Last Admin: 01/09/19 14:44 Dose: 80 mg Gabapentin (Neurontin -) 300 mg PO DAILY [facility] Last Admin: 01/09/19 10:05 Dose: 300 mg Guaifenesin (Robitussin -) 10 ml PO Q6H PRN PRN Reason: COUGH Last Admin: 01/09/19 04:23 Dose: 10 ml Famotidine/Sodium Chloride (Pepcid 20 Mg Premixed Ivpb -) 20 mg in 50 mls @ 100 mls/hr IVPB DAILY [facility] Polyethylene Glycol (Miralax (For Daily Use) -) 17 gm PO DAILY [facility] Last Admin: 01/09/19 10:06 Dose: 17 grams Last Vital Signs Temp Pulse Resp BP Pulse Ox 98.4 F 86 20 101/61 93 L 01/09/19 14:01 01/09/19 14:01 01/09/19 14:01 01/09/19 14:01 01/09/19 09:00 CBC, BMP 01/09/19 05:24 01/09/19 05:24
[2019-01-10] MEDS: FUROSEMIDE 40 MG/4 ML INJECTABLE VIAL IVPUSH SCH (06:07)
--- NOTE | 2019-01-10 06:07 | RAPID ---
Physical Examination Vital Signs: Vital Signs Temperature 99.5 F 01/09/19 22:00 Pulse Rate 93 H 01/09/19 22:00 Respiratory Rate 20 01/09/19 22:00 Blood Pressure 101/73 01/09/19 22:00 O2 Sat by Pulse Oximetry (%) 96 01/09/19 21:00 Labs: CBC, BMP 01/09/19 05:24 01/09/19 05:24 Rapid Response - Rapid Response Assessment: Patient presented as rapid response overhead; arrived and he was found 80/50 on the cuff with MAP 65; he was mentating well, not tachycardic, no alarms on tele. No complaints offered Recheck manual 80-90/50s with MAP consistently >65 Recheck on Cuff SBP 97 with MAP 70 Sending AM labs now with lactate; Rechecking BP in 1 hour. Updated patient and nurse. Hold off on lasix dose until can be discussed with cardio. Hold off on coreg until discussed with cardio
[2019-01-10] MEDS: ACETAMINOPHEN 325 MG TABLET (FP) PO PRN ×2 (06:10→13:52)
[2019-01-10 07:01] LABS: BASO % 0.1 % (0-2.0); EOS % 0.3 % (0-4.5); HEMATOCRIT 26.4 % (35.4-49); HEMOGLOBIN 8.8 GM/dL (11.7-16.9); LYMPH % 6.7 % (8-40); MCHC 33.4 g/dl (32.0-35.9); MEAN PLT VOLUME 8.7 fl (7.5-11.1); MONO % 2.1 % (3.8-10.2); NEUT % 90.8 % (42.8-82.8); PLATELET COUNT 90 K/MM3 (134-434); RBC 3.25 M/mm3 (4.00-5.60); RDW 23.4 % (11.9-15.9); WHITE BLOOD COUNT 3.1 K/mm3 (4.0-10.0)
[2019-01-10 07:59] LABS: ALBUMIN 2.1 g/dl (3.4-5.0); BILIRUBIN,TOTAL 2.5 mg/dL (0.2-1); CALCIUM 8.4 mg/dL (8.5-10.1); CREATININE 2.8 mg/dL (0.55-1.3); POTASSIUM 4.3 mmol/L (3.5-5.1); TOT PROT 5.3 g/dl (6.4-8.2)
[2019-01-10] MEDS: DRONABINOL 2.5 MG CAPSULE PO SCH ×3 (08:00→16:51)
[2019-01-10] MEDS: AMIODARONE HCL 200 MG TABLET (FP) PO SCH ×2 (10:41→13:52)
[2019-01-10] MEDS: CARVEDILOL 12.5 MG TABLET (FP) PO SCH ×2 (10:41→13:53)
[2019-01-10] MEDS: ATOVAQUONE 750 MG/5 ML (UNIT-DOSE PACKAGING) PO SCH ×2 (10:42→13:54)
[2019-01-10] MEDS: FOLIC ACID 1 MG TABLET (FP) PO SCH ×2 (10:42→13:52)
[2019-01-10] MEDS: APIXABAN 5 MG TABLET PO SCH ×3 (10:42→22:41)
[2019-01-10] MEDS: POLYETHYLENE GLYCOL 3350 119 GM BTL PO SCH (10:45)
[2019-01-10] MEDS: GABAPENTIN 300 MG CAPSULE (FP) PO SCH ×2 (10:45→13:52)
[2019-01-10] MEDS: FAMOTIDINE 20 MG/50 ML IVPB 20 MG/50 ML MG IVPB SCH ×2 (10:46→13:54)
[2019-01-10] MEDS: FENOFIBRIC ACID 135 MG CAP PO SCH ×2 (10:46→13:52)
--- NOTE | 2019-01-10 11:05 | PN ---
Progress Note (short form) - Note Progress Note: s: still short of breath, edema unchanged. no chest pain, palps, dizziness. earlier had hypotension. no cigs Current Medications Generic Name Dose Route Start Last Admin Trade Name Freq PRN Reason Stop Dose Admin Acetaminophen 650 mg 01/04/19 21:51 01/10/19 06:10 Tylenol - PO 650 mg Q6H PRN Administration FEVER Albuterol/Ipratropium 1 amp 01/04/19 21:52 01/09/19 22:13 Duoneb - NEB 1 amp Q4H PRN Administration SHORTNESS OF BREATH Amiodarone HCl 200 mg 01/05/19 10:00 01/10/19 10:41 Cordarone - PO Not Given DAILY [facility] Apixaban 5 mg 01/04/19 22:00 01/10/19 10:42 Eliquis - PO Not Given BID [facility] Atovaquone 1,500 mg 01/05/19 10:00 01/10/19 10:42 Mepron - PO Not Given DAILY [facility] Budesonide/Formoterol Fumarate 2 puff 01/04/19 22:00 01/09/19 21:36 Symbicort 80/4.5mcg - IH 2 puff BID [facility] Administration Carvedilol 12.5 mg 01/04/19 22:00 01/10/19 10:41 Coreg - PO Not Given BID [facility] Dronabinol 5 mg 01/09/19 17:30 01/10/19 08:00 Marinol - PO Not Given BIDWM [facility] Fenofibric Acid 135 mg 01/05/19 10:00 01/10/19 10:46 Trilipix - PO Not Given DAILY [facility] Folic Acid 1 mg 01/05/19 10:00 01/10/19 10:42 Folic Acid - PO Not Given DAILY [facility] Gabapentin 300 mg 01/05/19 10:00 01/10/19 10:45 Neurontin - PO Not Given DAILY [facility] Guaifenesin 10 ml 01/09/19 04:11 01/09/19 21:35 Robitussin - PO 10 ml Q6H PRN Administration COUGH Famotidine/Sodium Chloride 20 mg in 50 mls @ 100 mls/hr 01/09/19 10:06 10:46 Pepcid 20 Mg Premixed Ivpb - IVPB Not Given DAILY [facility] Polyethylene Glycol 17 gm 01/08/19 18:30 01/10/19 10:45 Miralax (For Daily Use) - PO Not Given DAILY [facility] Vital Signs Period Temp Pulse Resp BP Sys/Clements Pulse Ox Last 24 Hr 98.4 F-99.5 F 80-104 18-22 76-120/55-74 96-96 Constitutional: Yes: Well Nourished, No Distress Eyes: No: Sclera Icterus Respiratory: Yes: CTA Bilaterally, Diminished (bases). Gastrointestinal: Yes: Normal Bowel Sounds, Distention. No: Hepatomegaly, Palpable Mass, Tenderness Cardiovascular: Yes: Regular Rate and Rhythm JVD: No Carotid Bruit: No PMI: Non-Displaced Heart Sounds: Yes: S1, S2. No: Gallop Murmur: No: Systolic Murmur, Diastolic Murmur Extremities: No: Cool, Cyanosis Edema: 2+ cristian lower ext edema Integumentary: No: Jaundice Neurological: Yes: Alert, Oriented (x3) Psychiatric: No: Agitated CBC, BMP 01/10/19 05:25 01/10/19 05:25 ECG:sinus tach, low voltage, inferolat twi echo in 10/15 Dr. Meyer: normal LV, no pericardial effusion (no other signif abnormality) cath 09/2017 nl cors echo 06/2018 nl LV function, mildly reduced RV function, borderline LA enlargement, mild MR, mild TR, RVSP nl, small pericardial effusion <1 cm, no echo indication of tamponade echo 08/2018 [facility] [place] with definity nl LV function, mild RV dilation, mod decreased RV function, ao sclerosis, mild MR, mild TR, minimal pericardial effusion, valves not well visualized cardiac MRI 08/2018 [facility] nl LV/RV size with mild biventricular LV dysfunction, small circumfrential pericardial effusion with increased ventricular interdependence, associated delayed enhancement of pericardium, findings c/w constrictive pericarditis. nonpsecific intramyocardial LGE seen in setting of NICM, findings c/w mesothelioma in L hemithorax, mod biatrial enlargement tele: sinus cxr: congestive changes a/p: 1. Constrictive pericarditis, acute diastolic chf, mesothelioma: - recently admitted 08/2018 for CHF exac, transferred to [facility] found to have constrictive pericarditis 2/2 mesothelioma - was evaluated by CT surgery at [facility] - not a candidate for pericardial stripping - onc consulted - sees Dr. Newman, undergoing chemotherapy -01/10: got several days of lasix iv 80 bid with metolazone and no improvement in vol status and bun/cr rising. Today had hypotension. Will dc lasix for now. Possible need for HD?, renal following. - continue carvedilol, holding spironolactone for hyperkalemia - monitor daily weights, lytes, Cr 2.PAF: - s/p ANA/CV at [facility] 08/2018, in sinus here - continue home eliquis, amiodarone, carvedilol 3. HTN: -bp on low side, holding spironolactone and amlodipine 4. CKD: - as above
--- NOTE | 2019-01-10 11:05 | PN ---
Progress Note (short form) - Note Progress Note: PULMONARY APPEARS PROFOUNDLY WEAK VSS/AFEBRILE GENERAL: Awake, alert, mildly tachypneic at rest HEAD: Normal with no signs of trauma. EYES: sclera anicteric, conjunctiva clear. No lid lag. EARS, NOSE, THROAT: Ears normal, nares patent, oropharynx clear without exudates. Moist mucous membranes. NECK: Normal range of motion, supple without lymphadenopathy, JVD, or masses. LUNGS: bibasilar rhonchi, no wheeze HEART: Regular rate and rhythm, normal S1 and S2 without murmur, rub or gallop. ABDOMEN: Soft, (?) ascites, nontender, distended, normoactive bowel sounds, no guarding, no rebound, no masses. MUSCULOSKELETAL: Normal range of motion at all joints. No bony deformities or tenderness. No CVA tenderness. UPPER EXTREMITIES: 2+ pulses, warm, well-perfused. No cyanosis. No clubbing. Cap refill <2 seconds. No peripheral edema. LOWER EXTREMITIES: (+) 4 edema NEUROLOGICAL: Non-focal PSYCHIATRIC: Cooperative. Good eye contact. Appropriate mood and affect. 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
[2019-01-10 11:27] LABS: ANISOCYTOSIS 1+; MACROCYTOSIS 1+; OVALOCYTE 1+; PLATELET ESTIMATE DECREASED
[2019-01-10] MEDS: ALBUTEROL SO4 2.5/IPRATROPIUM 0.5 INH SOL 3 ML VIAL.NEB. NEB PRN (13:22)
[2019-01-10] MEDS: BUDESONIDE/FORMETEROL FUMARATE 80/4.5 mcg INHALER IH SCH ×2 (13:53→22:41)
--- NOTE | 2019-01-10 14:45 | PN ---
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 Current Medications Acetaminophen (Tylenol -) 650 mg PO Q6H PRN PRN Reason: FEVER Last Admin: 01/10/19 13:52 Dose: 650 mg Albuterol/Ipratropium (Duoneb -) 1 amp NEB Q4H PRN PRN Reason: SHORTNESS OF BREATH Last Admin: 01/10/19 13:22 Dose: 1 amp Amiodarone HCl (Cordarone -) 200 mg PO DAILY [facility] Last Admin: 01/10/19 13:52 Dose: 200 mg Apixaban (Eliquis -) 5 mg PO BID [facility] Last Admin: 01/10/19 13:52 Dose: 5 mg Atovaquone (Mepron -) 1,500 mg PO DAILY [facility] Last Admin: 01/10/19 13:54 Dose: 1,500 mg Budesonide/Formoterol Fumarate (Symbicort 80/4.5mcg -) 2 puff IH BID [facility] Last Admin: 01/10/19 13:53 Dose: 2 puff Carvedilol (Coreg -) 12.5 mg PO BID [facility] Last Admin: 01/10/19 13:53 Dose: 12.5 mg Dronabinol (Marinol -) 5 mg PO BIDWM [facility] Last Admin: 01/10/19 13:53 Dose: 5 mg Fenofibric Acid (Trilipix -) 135 mg PO DAILY [facility] Last Admin: 01/10/19 13:52 Dose: 135 mg Folic Acid (Folic Acid -) 1 mg PO DAILY [facility] Last Admin: 01/10/19 13:52 Dose: 1 mg Gabapentin (Neurontin -) 300 mg PO DAILY [facility] Last Admin: 01/10/19 13:52 Dose: 300 mg Guaifenesin (Robitussin -) 10 ml PO Q6H PRN PRN Reason: COUGH Last Admin: 01/09/19 21:35 Dose: 10 ml Famotidine/Sodium Chloride (Pepcid 20 Mg Premixed Ivpb -) 20 mg in 50 mls @ 100 mls/hr IVPB DAILY [facility] Last Admin: 01/10/19 13:54 Dose: 100 mls/hr Polyethylene Glycol (Miralax (For Daily Use) -) 17 gm PO DAILY [facility] Last Admin: 01/10/19 10:45 Dose: Not Given Laboratory Results - last 24 hr 01/09/19 01/09/19 01/10/19 05:24 10:13 05:25 WBC RBC Hgb Hct MCV MCH MCHC RDW Plt Count MPV Absolute Neuts (auto) Neutrophils % Neutrophils % (Manual) 91.9 H Band Neutrophils % 0.0 Lymphocytes % Lymphocytes % (Manual) 8.1 D Monocytes % Monocytes % (Manual) 0 L Eosinophils % Eosinophils % (Manual) 0.0 Basophils % Basophils % (Manual) 0.0 Myelocytes % (Man) 0 D Promyelocytes % (Man) 0 D Blast Cells % (Manual) 0 Nucleated RBC % Metamyelocytes 0 Hypochromia 0 Platelet Estimate Decreased Polychromasia 0 Poikilocytosis 1+ Anisocytosis 1+ Microcytosis 1+ Macrocytosis 1+ Ovalocytes 1+ Acanthocytes (Spur) Retic Count 0.75 Sodium Potassium Chloride Carbon Dioxide Anion Gap BUN Creatinine Est GFR (CKD-EPI)AfAm Est GFR (CKD-EPI)NonAf Random Glucose Calcium Ferritin Total Bilirubin AST ALT Alkaline Phosphatase LD Total Total Protein Albumin Vitamin B12 Serum Folate Blood Type B POSITIVE Antibody Screen Negative Crossmatch See Detail 01/10/19 01/10/19 05:25 05:25 WBC 3.1 L RBC 3.25 L Hgb 8.8 L Hct 26.4 L MCV 81.0 MCH 27.0 MCHC 33.4 RDW 23.4 H Plt Count 90 L MPV 8.7 Absolute Neuts (auto) 2.8 Neutrophils % 90.8 H Neutrophils % (Manual) 89.0 H Band Neutrophils % 0.0 Lymphocytes % 6.7 L Lymphocytes % (Manual) 8.0 Monocytes % 2.1 L D Monocytes % (Manual) 2 L D Eosinophils % 0.3 Eosinophils % (Manual) 1.0 D Basophils % 0.1 Basophils % (Manual) 0.0 Myelocytes % (Man) 0 Promyelocytes % (Man) 0 Blast Cells % (Manual) 0 Nucleated RBC % 1 H Metamyelocytes 0 Hypochromia 0 Platelet Estimate Decreased Polychromasia 0 Poikilocytosis 1+ Anisocytosis 1+ Microcytosis 1+ Macrocytosis 1+ Ovalocytes 1+ Acanthocytes (Spur) 1+ Retic Count Sodium 139 Potassium 4.3 Chloride 100 Carbon Dioxide 29 Anion Gap 10 BUN 89.0 H Creatinine 2.8 H Est GFR (CKD-EPI)AfAm 25.70 Est GFR (CKD-EPI)NonAf 22.17 Random Glucose 108 H Calcium 8.4 L Ferritin 771.3 H Total Bilirubin 2.5 H AST 51 H ALT 96 H Alkaline Phosphatase 116 LD Total 271 H Total Protein 5.3 L Albumin 2.1 L Vitamin B12 1329 H Serum Folate 42 H Blood Type Antibody Screen Crossmatch Vital Signs Temp 99.5 F 01/09/19 22:00 Pulse 95 H 01/10/19 09:21 Resp 18 01/10/19 09:21 BP 111/70 01/10/19 09:21 Pulse Ox 96 01/10/19 09:00 Intake & Output 01/09/19 01/10/19 01/10/19 23:59 11:59 23:59 Intake Total 360 70 Output Total 1100 Balance -740 70 Weight 216 lb 3.2 oz Intake: IV 20 saline lock 20 IVPB 50 Oral 360 Output: Urine 1100 Void 1100 Other: Voiding Method Urinal Urinal # Bowel Movements 1 Weight Measurement Method Standing Scale CC: weak ``````````````````````` eyes--milldy icteric oral--no droop heart--RR lungs--distant BS, unlabored abd--BS+, distended; diffuse lower non jamee tenderness R>L ext--bilat pitting edema neuro--awake; verbal, good eye contact; speech is fluent; thoughts organized and able to give answers relevant to questions; moves all extrem on command; hyperalgesic skin of the LE's ````````````````````````` Summ > anemia--H/h improved post PC transfusion; Cytopenia 2nd to effect of Chemo ( see Onc note); no gross signs of GI bleed; last BM, NL; no blood or tarry stool. Will check CBC in AM > ATF--rate controlled with Amiod & BB. BP dropped this AM; now better BB held; but may need lower dose, PLAN: need to hold a/c > Edema--multifactoral; cardiac vs hepatic?. Has not had any significant diuresis from high dose lasix; Bun/cr has been rising daily and the diuretics were stopped. HD would probably now be needed to off load this large fluid load. > CHF--No Pulm edema or significant effusion seen on the Chest CT (pleural or pericardial) Cardiology documenting NL LV funct; and impaired RV. PLAN: cont BB alone; lasix stopped > High LFTs--could be 2nd RV dysf (hepatic congestion) or drug effects; levels grossly the same; No hepatic lesions described by CT report. 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 PLAN: Hold Diuretics for now > COPD--from past exposures > Mesothelioma--Chest CT now reveals notable worsening of lung neoplasm of the Lt lung (see report) with greater mediastinal nodes; had been receiving Chemo now suspended: PLAN: palliative care consult to determine advanced planning ~~~~~~~~~~~~~~~ Dr Herrera
--- NOTE | 2019-01-10 15:15 | PN ---
Progress Note (short form) - Note Progress Note: 1. CKD 2. mesothelioma 3. HTN 4. hyperkalemia 5. a-fib 6. anemia 7. 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 Current Medications Acetaminophen (Tylenol -) 650 mg PO Q6H PRN PRN Reason: FEVER Last Admin: 01/10/19 13:52 Dose: 650 mg Albuterol/Ipratropium (Duoneb -) 1 amp NEB Q4H PRN PRN Reason: SHORTNESS OF BREATH Last Admin: 01/10/19 13:22 Dose: 1 amp Amiodarone HCl (Cordarone -) 200 mg PO DAILY [facility] Last Admin: 01/10/19 13:52 Dose: 200 mg Apixaban (Eliquis -) 5 mg PO BID [facility] Last Admin: 01/10/19 13:52 Dose: 5 mg Atovaquone (Mepron -) 1,500 mg PO DAILY [facility] Last Admin: 01/10/19 13:54 Dose: 1,500 mg Budesonide/Formoterol Fumarate (Symbicort 80/4.5mcg -) 2 puff IH BID [facility] Last Admin: 01/10/19 13:53 Dose: 2 puff Carvedilol (Coreg -) 12.5 mg PO BID [facility] Last Admin: 01/10/19 13:53 Dose: 12.5 mg Dronabinol (Marinol -) 5 mg PO BIDWM [facility] Last Admin: 01/10/19 13:53 Dose: 5 mg Fenofibric Acid (Trilipix -) 135 mg PO DAILY [facility] Last Admin: 01/10/19 13:52 Dose: 135 mg Folic Acid (Folic Acid -) 1 mg PO DAILY [facility] Last Admin: 01/10/19 13:52 Dose: 1 mg Gabapentin (Neurontin -) 300 mg PO DAILY [facility] Last Admin: 01/10/19 13:52 Dose: 300 mg Guaifenesin (Robitussin -) 10 ml PO Q6H PRN PRN Reason: COUGH Last Admin: 01/09/19 21:35 Dose: 10 ml Famotidine/Sodium Chloride (Pepcid 20 Mg Premixed Ivpb -) 20 mg in 50 mls @ 100 mls/hr IVPB DAILY [facility] Last Admin: 01/10/19 13:54 Dose: 100 mls/hr Polyethylene Glycol (Miralax (For Daily Use) -) 17 gm PO DAILY [facility] Last Admin: 01/10/19 10:45 Dose: Not Given Last Vital Signs Temp Pulse Resp BP Pulse Ox 99.5 F 95 H 18 111/70 96 01/09/19 22:00 01/10/19 09:21 01/10/19 09:21 01/10/19 09:21 01/10/19 09:00 Lungs clear Heart reg Abd soft nontender Ext edema CBC, BMP 01/10/19 05:25 01/10/19 05:25 CBC, BMP 01/09/19 05:24 01/09/19 05:24 IMP- advanced malignancy anasarca worsening kidney function on diuretics anemia no weight loss on this regimen Plan- may have to consider albumin/lasix IV
--- NOTE | 2019-01-10 15:47 | PN ---
Progress Note, Physician History of Present Illness: Continues to have SOB. Abdominal pain somewhat improved after BM - Current Medication List Current Medications: Active Medications Acetaminophen (Tylenol -) 650 mg PO Q6H PRN PRN Reason: FEVER Last Admin: 01/10/19 13:52 Dose: 650 mg Albuterol/Ipratropium (Duoneb -) 1 amp NEB Q4H PRN PRN Reason: SHORTNESS OF BREATH Last Admin: 01/10/19 13:22 Dose: 1 amp Amiodarone HCl (Cordarone -) 200 mg PO DAILY [facility] Last Admin: 01/10/19 13:52 Dose: 200 mg Apixaban (Eliquis -) 5 mg PO BID [facility] Last Admin: 01/10/19 13:52 Dose: 5 mg Atovaquone (Mepron -) 1,500 mg PO DAILY [facility] Last Admin: 01/10/19 13:54 Dose: 1,500 mg Budesonide/Formoterol Fumarate (Symbicort 80/4.5mcg -) 2 puff IH BID [facility] Last Admin: 01/10/19 13:53 Dose: 2 puff Carvedilol (Coreg -) 12.5 mg PO BID [facility] Last Admin: 01/10/19 13:53 Dose: 12.5 mg Dronabinol (Marinol -) 5 mg PO BIDWM [facility] Last Admin: 01/10/19 13:53 Dose: 5 mg Fenofibric Acid (Trilipix -) 135 mg PO DAILY [facility] Last Admin: 01/10/19 13:52 Dose: 135 mg Folic Acid (Folic Acid -) 1 mg PO DAILY [facility] Last Admin: 01/10/19 13:52 Dose: 1 mg Gabapentin (Neurontin -) 300 mg PO DAILY [facility] Last Admin: 01/10/19 13:52 Dose: 300 mg Guaifenesin (Robitussin -) 10 ml PO Q6H PRN PRN Reason: COUGH Last Admin: 01/09/19 21:35 Dose: 10 ml Famotidine/Sodium Chloride (Pepcid 20 Mg Premixed Ivpb -) 20 mg in 50 mls @ 100 mls/hr IVPB DAILY [facility] Last Admin: 01/10/19 13:54 Dose: 100 mls/hr Polyethylene Glycol (Miralax (For Daily Use) -) 17 gm PO DAILY [facility] Last Admin: 01/10/19 10:45 Dose: Not Given - Objective Vital Signs: Vital Signs Temperature 97.8 F 01/10/19 14:00 Pulse Rate 83 01/10/19 14:00 Respiratory Rate 20 01/10/19 14:00 Blood Pressure 79/53 L 01/10/19 14:00 O2 Sat by Pulse Oximetry (%) 96 01/10/19 09:00 Constitutional: Yes: No Distress, Calm Edema: LLE: 2+, RLE: 2+ Additional Findings/Remarks: Rest of exam deferred as pt eating lunch Labs: CBC, BMP 01/10/19 05:25 01/10/19 05:25 INR, PTT INR Cancelled 01/04/19 21:17 Assessment/Plan 68M with COPD, CHF, CKD, AF on Eliquis, mesothelioma dx 2 years ago, s/p carbo/ alimta with eventual POD,then nivolumab since 12/2017, and most recently gemcitabine, c1 on 12/28 admitted with recurrent SOB and fluid overload. Being diuresed. Today Hgb 7.7 (from 10.3 on 01/04), Plt 104 (from 193). WBC also down but ANC normal. Cytopenias are expected on d12 of chemotherapy. Reasonable to evaluate with stool occult blood given AC. Continue to monitor CBC daily.
[2019-01-11 07:59] LABS: HEMATOCRIT 27.3 % (35.4-49); HEMOGLOBIN 9.1 GM/dL (11.7-16.9); MCH 27.3 pg (25.7-33.7); MCHC 33.2 g/dl (32.0-35.9); MEAN CELL VOLUME 82.2 fl (80-96); MEAN PLT VOLUME 8.7 fl (7.5-11.1); PLATELET COUNT 75 K/MM3 (134-434); RBC 3.32 M/mm3 (4.00-5.60); RDW 23.5 % (11.9-15.9); WHITE BLOOD COUNT 4.7 K/mm3 (4.0-10.0)
[2019-01-11] MEDS: DRONABINOL 2.5 MG CAPSULE PO SCH ×3 (08:16→18:22)
[2019-01-11 08:26] LABS: ALBUMIN 2.2 g/dl (3.4-5.0); BILIRUBIN,TOTAL 2.2 mg/dL (0.2-1); CALCIUM 8.9 mg/dL (8.5-10.1); CREATININE 3.5 mg/dL (0.55-1.3); POTASSIUM 4.6 mmol/L (3.5-5.1); TOT PROT 5.4 g/dl (6.4-8.2)
[2019-01-11 08:30] LABS: BLOOD UREA NITROGEN 105.6 mg/dL (7-18)
[2019-01-11] MEDS: CARVEDILOL 12.5 MG TABLET (FP) PO SCH ×2 (09:02→21:58)
[2019-01-11] MEDS: AMIODARONE HCL 200 MG TABLET (FP) PO SCH (09:22)
[2019-01-11] MEDS: APIXABAN 5 MG TABLET PO SCH ×2 (09:24→21:58)
[2019-01-11] MEDS: FOLIC ACID 1 MG TABLET (FP) PO SCH (09:24)
[2019-01-11] MEDS: FAMOTIDINE 20 MG/50 ML IVPB 20 MG/50 ML MG IVPB SCH (09:24)
[2019-01-11] MEDS: GABAPENTIN 300 MG CAPSULE (FP) PO SCH (09:24)
[2019-01-11] MEDS: FENOFIBRIC ACID 135 MG CAP PO SCH (09:24)
[2019-01-11] MEDS: BUDESONIDE/FORMETEROL FUMARATE 80/4.5 mcg INHALER IH SCH ×2 (09:25→21:58)
[2019-01-11] MEDS ORDERED: PT OWN MED DRAWER 7, Y5N ONE (09:27)
[2019-01-11] MEDS: ATOVAQUONE 750 MG/5 ML (UNIT-DOSE PACKAGING) PO SCH (09:27)
[2019-01-11] MEDS: POLYETHYLENE GLYCOL 3350 119 GM BTL PO SCH (09:28)
--- NOTE | 2019-01-11 11:01 | PN ---
Progress Note, Physician History of Present Illness: PULMONARY AWAKE,C/O SOB,-CP,WEAK - Current Medication List Current Medications: Active Medications Acetaminophen (Tylenol -) 650 mg PO Q6H PRN PRN Reason: FEVER Last Admin: 01/10/19 13:52 Dose: 650 mg Albuterol/Ipratropium (Duoneb -) 1 amp NEB Q4H PRN PRN Reason: SHORTNESS OF BREATH Last Admin: 01/10/19 13:22 Dose: 1 amp Amiodarone HCl (Cordarone -) 200 mg PO DAILY [facility] Last Admin: 01/11/19 09:22 Dose: Not Given Apixaban (Eliquis -) 5 mg PO BID [facility] Last Admin: 01/11/19 09:24 Dose: 5 mg Atovaquone (Mepron -) 1,500 mg PO DAILY [facility] Last Admin: 01/11/19 09:27 Dose: 1,500 mg Budesonide/Formoterol Fumarate (Symbicort 80/4.5mcg -) 2 puff IH BID [facility] Last Admin: 01/11/19 09:25 Dose: 2 puff Carvedilol (Coreg -) 12.5 mg PO BID [facility] Last Admin: 01/11/19 09:02 Dose: Not Given Dronabinol (Marinol -) 5 mg PO BIDWM [facility] Last Admin: 01/11/19 09:29 Dose: 5 mg Fenofibric Acid (Trilipix -) 135 mg PO DAILY [facility] Last Admin: 01/11/19 09:24 Dose: 135 mg Folic Acid (Folic Acid -) 1 mg PO DAILY [facility] Last Admin: 01/11/19 09:24 Dose: 1 mg Gabapentin (Neurontin -) 300 mg PO DAILY [facility] Last Admin: 01/11/19 09:24 Dose: 300 mg Guaifenesin (Robitussin -) 10 ml PO Q6H PRN PRN Reason: COUGH Last Admin: 01/09/19 21:35 Dose: 10 ml Famotidine/Sodium Chloride (Pepcid 20 Mg Premixed Ivpb -) 20 mg in 50 mls @ 100 mls/hr IVPB DAILY [facility] Last Admin: 01/11/19 09:24 Dose: 100 mls/hr Polyethylene Glycol (Miralax (For Daily Use) -) 17 gm PO DAILY [facility] Last Admin: 01/11/19 09:28 Dose: Not Given - Objective Vital Signs: Vital Signs Temperature 98.3 F 01/11/19 09:19 Pulse Rate 96 H 01/11/19 09:19 Respiratory Rate 18 01/11/19 09:19 Blood Pressure 93/72 01/11/19 09:19 O2 Sat by Pulse Oximetry (%) 98 01/11/19 08:12 Constitutional: Yes: Well Nourished, Calm, Other (WEAK,DYSPNEIC) Eyes: Yes: WNL HENT: Yes: WNL Neck: Yes: WNL Cardiovascular: Yes: Regular Rate and Rhythm, S1, S2 Respiratory: Yes: Diminished Gastrointestinal: Yes: Normal Bowel Sounds, Distention Extremities: Yes: WNL Edema: Yes Labs: CBC, BMP 01/11/19 06:25 01/11/19 06:25 INR, PTT INR Cancelled 01/04/19 21:17 Problem List - Problems (1) CHF exacerbation Code(s): I50.9 - HEART FAILURE, UNSPECIFIED Qualifiers: Heart failure type: unspecified Qualified Code(s): I50.9 - Heart failure, unspecified (2) CKD (chronic kidney disease) Code(s): N18.9 - CHRONIC KIDNEY DISEASE, UNSPECIFIED (3) COPD (chronic obstructive pulmonary disease) Code(s): J44.9 - CHRONIC OBSTRUCTIVE PULMONARY DISEASE, UNSPECIFIED Qualifiers: COPD type: unspecified COPD Qualified Code(s): J44.9 - Chronic obstructive pulmonary disease, unspecified (4) Mesothelioma (pleural) Code(s): C45.0 - MESOTHELIOMA OF PLEURA (5) Pedal edema Code(s): R60.0 - LOCALIZED EDEMA (6) Afib Code(s): I48.91 - UNSPECIFIED ATRIAL FIBRILLATION (7) HTN (hypertension) Code(s): I10 - ESSENTIAL (PRIMARY) HYPERTENSION (8) Shortness of breath Code(s): R06.02 - SHORTNESS OF BREATH Assessment/Plan ASSESSMENT/PLAN: SOB due to acute decompensated heart failure 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
--- NOTE | 2019-01-11 15:26 | PN ---
Progress Note (short form) - Note Progress Note: s: shortness of breath and edema unchanged. no chest pain, palps, dizziness. no cigs Current Medications Acetaminophen (Tylenol -) 650 mg PO Q6H PRN PRN Reason: FEVER Last Admin: 01/10/19 13:52 Dose: 650 mg Albuterol/Ipratropium (Duoneb -) 1 amp NEB Q4H PRN PRN Reason: SHORTNESS OF BREATH Last Admin: 01/10/19 13:22 Dose: 1 amp Amiodarone HCl (Cordarone -) 200 mg PO DAILY [facility] Last Admin: 01/11/19 09:22 Dose: Not Given Apixaban (Eliquis -) 5 mg PO BID [facility] Last Admin: 01/11/19 09:24 Dose: 5 mg Atovaquone (Mepron -) 1,500 mg PO DAILY [facility] Last Admin: 01/11/19 09:27 Dose: 1,500 mg Budesonide/Formoterol Fumarate (Symbicort 80/4.5mcg -) 2 puff IH BID [facility] Last Admin: 01/11/19 09:25 Dose: 2 puff Carvedilol (Coreg -) 12.5 mg PO BID [facility] Last Admin: 01/11/19 09:02 Dose: Not Given Dronabinol (Marinol -) 5 mg PO BIDWM [facility] Last Admin: 01/11/19 09:29 Dose: 5 mg Fenofibric Acid (Trilipix -) 135 mg PO DAILY [facility] Last Admin: 01/11/19 09:24 Dose: 135 mg Folic Acid (Folic Acid -) 1 mg PO DAILY [facility] Last Admin: 01/11/19 09:24 Dose: 1 mg Gabapentin (Neurontin -) 300 mg PO DAILY [facility] Last Admin: 01/11/19 09:24 Dose: 300 mg Guaifenesin (Robitussin -) 10 ml PO Q6H PRN PRN Reason: COUGH Last Admin: 01/09/19 21:35 Dose: 10 ml Famotidine/Sodium Chloride (Pepcid 20 Mg Premixed Ivpb -) 20 mg in 50 mls @ 100 mls/hr IVPB DAILY [facility] Last Admin: 01/11/19 09:24 Dose: 100 mls/hr Polyethylene Glycol (Miralax (For Daily Use) -) 17 gm PO DAILY [facility] Last Admin: 01/11/19 09:28 Dose: Not Given Vital Signs Period Temp Pulse Resp BP Sys/Clements Pulse Ox Last 24 Hr 97.6 F-98.3 F 80-96 16-20 81-101/50-72 98-98 Constitutional: Yes: Well Nourished, No Distress Eyes: No: Sclera Icterus Respiratory: Yes: CTA Bilaterally, Diminished (bases). Gastrointestinal: Yes: Normal Bowel Sounds, Distention. No: Hepatomegaly, Palpable Mass, Tenderness Cardiovascular: Yes: Regular Rate and Rhythm JVD: No Carotid Bruit: No PMI: Non-Displaced Heart Sounds: Yes: S1, S2. No: Gallop Murmur: No: Systolic Murmur, Diastolic Murmur Extremities: No: Cool, Cyanosis Edema: 2+ cristian lower ext edema Integumentary: No: Jaundice Neurological: Yes: Alert, Oriented (x3), lethargic Psychiatric: No: Agitated ECG:sinus tach, low voltage, inferolat twi echo in 10/15 Dr. Meyer: normal LV, no pericardial effusion (no other signif abnormality) cath 09/2017 nl cors echo 06/2018 nl LV function, mildly reduced RV function, borderline LA enlargement, mild MR, mild TR, RVSP nl, small pericardial effusion <1 cm, no echo indication of tamponade echo 08/2018 [facility] with definity nl LV function, mild RV dilation, mod decreased RV function, ao sclerosis, mild MR, mild TR, minimal pericardial effusion, valves not well visualized cardiac MRI 08/2018 [facility] nl LV/RV size with mild biventricular LV dysfunction, small circumfrential pericardial effusion with increased ventricular interdependence, associated delayed enhancement of pericardium, findings c/w constrictive pericarditis. nonpsecific intramyocardial LGE seen in setting of NICM, findings c/w mesothelioma in L hemithorax, mod biatrial enlargement tele: afib, rate controlled cxr: congestive changes a/p: 1. Constrictive pericarditis, acute diastolic chf, mesothelioma: - recently admitted 08/2018 for CHF exac, transferred to [facility] found to have constrictive pericarditis 2/2 mesothelioma - was evaluated by CT surgery at [facility] - not a candidate for pericardial stripping - onc consulted - sees Dr. Newman, undergoing chemotherapy -01/10: got several days of lasix iv 80 bid with metolazone and no improvement in vol status and bun/cr rising. Today had hypotension. Will dc lasix for now. - BUN/Cr continue to rise, BUN >100, lethargy likely 2/2 uremia. Holding lasix. Given advanced malignancy may not be a candidate for dialysis, d/w renal - discussed case with palliative care, Dr. Newman - note progression of lung nodularity on CT chest - continue carvedilol - holding doses for low BP, holding spironolactone for hyperkalemia - monitor daily weights, lytes, Cr 2.PAF: - s/p ANA/CV at [facility] 08/2018, in sinus here - continue home eliquis, amiodarone, carvedilol 3. HTN: -episodes of hypotension, cont holding spironolactone and amlodipine 4. CKD: - as above
--- NOTE | 2019-01-11 15:26 | PN ---
Progress Note, Physician History of Present Illness: Pt seen and examined at bedside. He is fatigued and drowsy today. - Current Medication List Current Medications: Active Medications Acetaminophen (Tylenol -) 650 mg PO Q6H PRN PRN Reason: FEVER Last Admin: 01/10/19 13:52 Dose: 650 mg Albuterol/Ipratropium (Duoneb -) 1 amp NEB Q4H PRN PRN Reason: SHORTNESS OF BREATH Last Admin: 01/10/19 13:22 Dose: 1 amp Amiodarone HCl (Cordarone -) 200 mg PO DAILY [facility] Last Admin: 01/11/19 09:22 Dose: Not Given Apixaban (Eliquis -) 5 mg PO BID [facility] Last Admin: 01/11/19 09:24 Dose: 5 mg Atovaquone (Mepron -) 1,500 mg PO DAILY [facility] Last Admin: 01/11/19 09:27 Dose: 1,500 mg Budesonide/Formoterol Fumarate (Symbicort 80/4.5mcg -) 2 puff IH BID [facility] Last Admin: 01/11/19 09:25 Dose: 2 puff Carvedilol (Coreg -) 12.5 mg PO BID [facility] Last Admin: 01/11/19 09:02 Dose: Not Given Dronabinol (Marinol -) 5 mg PO BIDWM [facility] Last Admin: 01/11/19 09:29 Dose: 5 mg Fenofibric Acid (Trilipix -) 135 mg PO DAILY [facility] Last Admin: 01/11/19 09:24 Dose: 135 mg Folic Acid (Folic Acid -) 1 mg PO DAILY [facility] Last Admin: 01/11/19 09:24 Dose: 1 mg Gabapentin (Neurontin -) 300 mg PO DAILY [facility] Last Admin: 01/11/19 09:24 Dose: 300 mg Guaifenesin (Robitussin -) 10 ml PO Q6H PRN PRN Reason: COUGH Last Admin: 01/09/19 21:35 Dose: 10 ml Famotidine/Sodium Chloride (Pepcid 20 Mg Premixed Ivpb -) 20 mg in 50 mls @ 100 mls/hr IVPB DAILY [facility] Last Admin: 01/11/19 09:24 Dose: 100 mls/hr Polyethylene Glycol (Miralax (For Daily Use) -) 17 gm PO DAILY [facility] Last Admin: 01/11/19 09:28 Dose: Not Given - Objective Vital Signs: Vital Signs Temperature 98.3 F 01/11/19 09:19 Pulse Rate 96 H 01/11/19 09:19 Respiratory Rate 18 01/11/19 09:19 Blood Pressure 93/72 01/11/19 09:19 O2 Sat by Pulse Oximetry (%) 98 01/11/19 08:12 Constitutional: Yes: Mild Distress Eyes: Yes: Conjunctiva Clear HENT: Yes: Atraumatic Cardiovascular: Yes: S1, S2 Respiratory: Yes: CTA Bilaterally Gastrointestinal: Yes: Soft Genitourinary: Yes: WNL Musculoskeletal: Yes: WNL Edema: Yes Edema: LLE: 3+, RLE: 3+ Integumentary: Yes: Venous Stasis Changes Neurological: Yes: Oriented Psychiatric: Yes: Oriented Labs: CBC, BMP 01/11/19 06:25 01/11/19 06:25 INR, PTT INR Cancelled 01/04/19 21:17 Problem List - Problems (1) CKD (chronic kidney disease) Code(s): N18.9 - CHRONIC KIDNEY DISEASE, UNSPECIFIED (2) COPD (chronic obstructive pulmonary disease) Code(s): J44.9 - CHRONIC OBSTRUCTIVE PULMONARY DISEASE, UNSPECIFIED Qualifiers: Qualified Code(s): J44.9 - Chronic obstructive pulmonary disease, unspecified (3) Mesothelioma (pleural) Code(s): C45.0 - MESOTHELIOMA OF PLEURA (4) Pedal edema Code(s): R60.0 - LOCALIZED EDEMA Assessment/Plan Current Medications Generic Name Dose Route Start Last Admin Trade Name Freq PRN Reason Stop Dose Admin Acetaminophen 650 mg 01/04/19 21:51 01/10/19 13:52 Tylenol - PO 650 mg Q6H PRN Administration FEVER Albuterol/Ipratropium 1 amp 01/04/19 21:52 01/10/19 13:22 Duoneb - NEB 1 amp Q4H PRN Administration SHORTNESS OF BREATH Amiodarone HCl 200 mg 01/05/19 10:00 01/11/19 09:22 Cordarone - PO Not Given DAILY [facility] Apixaban 5 mg 01/04/19 22:00 01/11/19 09:24 Eliquis - PO 5 mg BID [facility] Administration Atovaquone 1,500 mg 01/05/19 10:00 01/11/19 09:27 Mepron - PO 1,500 mg DAILY [facility] Administration Budesonide/Formoterol Fumarate 2 puff 01/04/19 22:00 01/11/19 09:25 Symbicort 80/4.5mcg - IH 2 puff BID [facility] Administration Carvedilol 12.5 mg 01/04/19 22:00 01/11/19 09:02 Coreg - PO Not Given BID [facility] Dronabinol 5 mg 01/09/19 17:30 01/11/19 09:29 Marinol - PO 5 mg BIDWM [facility] Administration Fenofibric Acid 135 mg 01/05/19 10:00 01/11/19 09:24 Trilipix - PO 135 mg DAILY [facility] Administration Folic Acid 1 mg 01/05/19 10:00 01/11/19 09:24 Folic Acid - PO 1 mg DAILY [facility] Administration Gabapentin 300 mg 01/05/19 10:00 01/11/19 09:24 Neurontin - PO 300 mg DAILY [facility] Administration Guaifenesin 10 ml 01/09/19 04:11 01/09/19 21:35 Robitussin - PO 10 ml Q6H PRN Administration COUGH Famotidine/Sodium Chloride 20 mg in 50 mls @ 100 mls/hr 01/09/19 10:06 09:24 Pepcid 20 Mg Premixed Ivpb - IVPB 100 mls/hr DAILY [facility] Administration Polyethylene Glycol 17 gm 01/08/19 18:30 01/11/19 09:28 Miralax (For Daily Use) - PO Not Given DAILY [facility] Impression 1. CKD 2. mesothelioma 3. HTN 4. hyperkalemia 5. a-fib 6. 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
--- NOTE | 2019-01-11 16:05 | PN ---
Progress Note (short form) - Note Progress Note: Patient seen and examined Worsening status with rising BUN and creatinine. Intermittent lethargy Discussed with Drs. Dooley and Azael - little to offer at this time. Discussed question of whether patient would like to be placed on machine if he went into a coma. - Did not address this. Asked about who would be making decisions in future for patient. Stated-- sister, Usha. Last Vital Signs Temp Pulse Resp BP Pulse Ox 97.8 F 85 16 89/56 L 98 01/11/19 14:15 01/11/19 14:15 01/11/19 14:15 01/11/19 14:15 01/11/19 08:12 HEENT: WILLIAMS, EOM Intact Cor: RSR, No murmurs, No gallops Lungs: diminished breath sounds bilaterally Abd: distended Ext:significant edema Skin: No rashes, Integument intact CBC, BMP 01/11/19 06:25 01/11/19 06:25 Current Medications Generic Name Dose Route Start Last Admin Trade Name Freq PRN Reason Stop Dose Admin Acetaminophen 650 mg 01/04/19 21:51 01/10/19 13:52 Tylenol - PO 650 mg Q6H PRN Administration FEVER Albuterol/Ipratropium 1 amp 01/04/19 21:52 01/10/19 13:22 Duoneb - NEB 1 amp Q4H PRN Administration SHORTNESS OF BREATH Amiodarone HCl 200 mg 01/05/19 10:00 01/11/19 09:22 Cordarone - PO Not Given DAILY [facility] Apixaban 5 mg 01/04/19 22:00 01/11/19 09:24 Eliquis - PO 5 mg BID [facility] Administration Atovaquone 1,500 mg 01/05/19 10:00 01/11/19 09:27 Mepron - PO 1,500 mg DAILY [facility] Administration Budesonide/Formoterol Fumarate 2 puff 01/04/19 22:00 01/11/19 09:25 Symbicort 80/4.5mcg - IH 2 puff BID [facility] Administration Carvedilol 12.5 mg 01/04/19 22:00 01/11/19 09:02 Coreg - PO Not Given BID [facility] Dronabinol 5 mg 01/09/19 17:30 01/11/19 09:29 Marinol - PO 5 mg BIDWM [facility] Administration Fenofibric Acid 135 mg 01/05/19 10:00 01/11/19 09:24 Trilipix - PO 135 mg DAILY [facility] Administration Folic Acid 1 mg 01/05/19 10:00 01/11/19 09:24 Folic Acid - PO 1 mg DAILY [facility] Administration Gabapentin 300 mg 01/05/19 10:00 01/11/19 09:24 Neurontin - PO 300 mg DAILY [facility] Administration Guaifenesin 10 ml 01/09/19 04:11 01/09/19 21:35 Robitussin - PO 10 ml Q6H PRN Administration COUGH Famotidine/Sodium Chloride 20 mg in 50 mls @ 100 mls/hr 01/09/19 10:06 09:24 Pepcid 20 Mg Premixed Ivpb - IVPB 100 mls/hr DAILY [facility] Administration Polyethylene Glycol 17 gm 01/08/19 18:30 01/11/19 09:28 Miralax (For Daily Use) - PO Not Given DAILY [facility] Impression: [facility] Likely developing symptoms of uremia with lethargy Worsening renal function. Need to clarify status re DNR/DNI Patient would not address this with me. Spoke with HC proxy - sister-Usha and advised her to come to hospital to discuss issues with her brother and with physicians.
--- NOTE | 2019-01-11 16:23 | PN ---
Progress Note, Physician History of Present Illness: comfortable at bedside - Current Medication List Current Medications: Active Medications Acetaminophen (Tylenol -) 650 mg PO Q6H PRN PRN Reason: FEVER Last Admin: 01/10/19 13:52 Dose: 650 mg Albuterol/Ipratropium (Duoneb -) 1 amp NEB Q4H PRN PRN Reason: SHORTNESS OF BREATH Last Admin: 01/10/19 13:22 Dose: 1 amp Amiodarone HCl (Cordarone -) 200 mg PO DAILY [facility] Last Admin: 01/11/19 09:22 Dose: Not Given Apixaban (Eliquis -) 5 mg PO BID [facility] Last Admin: 01/11/19 09:24 Dose: 5 mg Atovaquone (Mepron -) 1,500 mg PO DAILY [facility] Last Admin: 01/11/19 09:27 Dose: 1,500 mg Budesonide/Formoterol Fumarate (Symbicort 80/4.5mcg -) 2 puff IH BID [facility] Last Admin: 01/11/19 09:25 Dose: 2 puff Carvedilol (Coreg -) 12.5 mg PO BID [facility] Last Admin: 01/11/19 09:02 Dose: Not Given Dronabinol (Marinol -) 5 mg PO BIDWM [facility] Last Admin: 01/11/19 09:29 Dose: 5 mg Fenofibric Acid (Trilipix -) 135 mg PO DAILY [facility] Last Admin: 01/11/19 09:24 Dose: 135 mg Folic Acid (Folic Acid -) 1 mg PO DAILY [facility] Last Admin: 01/11/19 09:24 Dose: 1 mg Gabapentin (Neurontin -) 300 mg PO DAILY [facility] Last Admin: 01/11/19 09:24 Dose: 300 mg Guaifenesin (Robitussin -) 10 ml PO Q6H PRN PRN Reason: COUGH Last Admin: 01/09/19 21:35 Dose: 10 ml Famotidine/Sodium Chloride (Pepcid 20 Mg Premixed Ivpb -) 20 mg in 50 mls @ 100 mls/hr IVPB DAILY [facility] Last Admin: 01/11/19 09:24 Dose: 100 mls/hr Polyethylene Glycol (Miralax (For Daily Use) -) 17 gm PO DAILY [facility] Last Admin: 01/11/19 09:28 Dose: Not Given - Objective Vital Signs: Vital Signs Temperature 97.8 F 01/11/19 14:15 Pulse Rate 85 01/11/19 14:15 Respiratory Rate 16 01/11/19 14:15 Blood Pressure 89/56 L 01/11/19 14:15 O2 Sat by Pulse Oximetry (%) 98 01/11/19 08:12 Constitutional: Yes: Calm HENT: Yes: Atraumatic Neck: Yes: Supple Cardiovascular: Yes: Regular Rate and Rhythm Respiratory: Yes: CTA Bilaterally Gastrointestinal: Yes: Normal Bowel Sounds Extremities: Yes: WNL Edema: Yes Edema: LLE: 2+, RLE: 2+ Peripheral Pulses WNL: Yes Neurological: Yes: Alert Labs: CBC, BMP 01/11/19 06:25 01/11/19 06:25 INR, PTT INR Cancelled 01/04/19 21:17 Problem List - Problems (1) Pedal edema Assessment/Plan: on diuretics nephro on board renal functions getting worse HD ???family is deciding code ststus family deciding Code(s): R60.0 - LOCALIZED EDEMA (2) CYNDIE (acute kidney injury) Code(s): N17.9 - ACUTE KIDNEY FAILURE, UNSPECIFIED (3) Acute diastolic heart failure Code(s): I50.31 - ACUTE DIASTOLIC (CONGESTIVE) HEART FAILURE (4) Afib Assessment/Plan: on meds on AC Code(s): I48.91 - UNSPECIFIED ATRIAL FIBRILLATION (5) CHF exacerbation Code(s): I50.9 - HEART FAILURE, UNSPECIFIED Qualifiers: Heart failure type: unspecified Qualified Code(s): I50.9 - Heart failure, unspecified (6) COPD (chronic obstructive pulmonary disease) Assessment/Plan: prn nebs and oxygen Code(s): J44.9 - CHRONIC OBSTRUCTIVE PULMONARY DISEASE, UNSPECIFIED Qualifiers: COPD type: unspecified COPD Qualified Code(s): J44.9 - Chronic obstructive pulmonary disease, unspecified (7) HTN (hypertension) Assessment/Plan: on meds monitor Code(s): I10 - ESSENTIAL (PRIMARY) HYPERTENSION (8) Mesothelioma (pleural) Assessment/Plan: ct scan report seen disease process progressing Code(s): C45.0 - MESOTHELIOMA OF PLEURA (9) Constrictive pericarditis Code(s): 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 (10) CKD (chronic kidney disease) Code(s): N18.9 - CHRONIC KIDNEY DISEASE, UNSPECIFIED
--- NOTE | 2019-01-11 19:07 | CONSULT ---
Consultation: REQUESTING PROVIDER: CONSULT REQUEST: We have been asked to medically evaluate this patient for ICU. HISTORY OF PRESENT ILLNESS: Briefly Pt. is a 68 y.o. M w/ PMHx. 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 Pt. was started on diuretics with minimal change in volume status, and worsening of renal, cardiac and pulmonary function. We are called to evaluate Pt. for ICU management pending palliative care discussion with family tomorrow. Pt endorses "not feeling good," and endorses shortness of breath at rest/ REVIEW OF SYSTEMS: As per HPI PHYSICAL EXAMINATION Vital Signs - 24 hr 01/10/19 01/10/19 01/11/19 20:38 22:00 02:00 Temperature 97.6 F 98.2 F Pulse Rate 89 85 Respiratory 20 Rate Blood Pressure 81/51 L 99/59 L O2 Sat by Pulse 98 Oximetry (%) 01/11/19 01/11/19 01/11/19 06:00 08:12 09:19 Temperature 98.0 F 98.3 F Pulse Rate 96 H 96 H Respiratory 20 20 18 Rate Blood Pressure 101/66 93/72 O2 Sat by Pulse 98 Oximetry (%) 01/11/19 14:15 Temperature 97.8 F Pulse Rate 85 Respiratory 16 Rate Blood Pressure 89/56 L O2 Sat by Pulse Oximetry (%) Physical exam: Gen: in acute respiratory distress, ENT: MMM with thick secretions in mouth and on lips Neck: supple, JVD on R. side Lungs: Decreased respirations, B/L crackles, coarse breath sounds. Heart: S1, S2, with murmur Abdomen, NT, Distended, BS +, dull to percussion, anasarca Ext: 4+ pitting edema in the lower extremities with edema throughout the thighs , no calf tenderness, 1+ dorsal pedal pulse, b/ venous stasis changes with skin break down Skin, Anasarca Laboratory Results - last 24 hr 01/10/19 01/11/19 01/11/19 05:25 06:25 06:25 WBC 4.7 RBC 3.32 L Hgb 9.1 L Hct 27.3 L MCV 82.2 MCH 27.3 MCHC 33.2 RDW 23.5 H Plt Count 75 L MPV 8.7 Sodium 139 Potassium 4.6 Chloride 98 Carbon Dioxide 32 Anion Gap 9 BUN 105.6 H* Creatinine 3.5 H Est GFR (CKD-EPI)AfAm 19.62 Est GFR (CKD-EPI)NonAf 16.93 Random Glucose 131 H Calcium 8.9 Iron 30 L Total Bilirubin 2.2 H AST 46 H ALT 94 H Alkaline Phosphatase 122 H Ammonia Total Protein 5.4 L Albumin 2.2 L Free T4 0.95 01/11/19 06:25 WBC RBC Hgb Hct MCV MCH MCHC RDW Plt Count MPV Sodium Potassium Chloride Carbon Dioxide Anion Gap BUN Creatinine Est GFR (CKD-EPI)AfAm Est GFR (CKD-EPI)NonAf Random Glucose Calcium Iron Total Bilirubin AST ALT Alkaline Phosphatase Ammonia 32.70 H Total Protein Albumin Free T4 Active Medications Current Medications Acetaminophen (Tylenol -) 650 mg PO Q6H PRN PRN Reason: FEVER Last Admin: 01/10/19 13:52 Dose: 650 mg Albuterol/Ipratropium (Duoneb -) 1 amp NEB Q4H PRN PRN Reason: SHORTNESS OF BREATH Last Admin: 01/10/19 13:22 Dose: 1 amp Amiodarone HCl (Cordarone -) 200 mg PO DAILY [facility] Last Admin: 01/11/19 09:22 Dose: Not Given Apixaban (Eliquis -) 5 mg PO BID [facility] Last Admin: 01/11/19 09:24 Dose: 5 mg Atovaquone (Mepron -) 1,500 mg PO DAILY [facility] Last Admin: 01/11/19 09:27 Dose: 1,500 mg Budesonide/Formoterol Fumarate (Symbicort 80/4.5mcg -) 2 puff IH BID [facility] Last Admin: 01/11/19 09:25 Dose: 2 puff Carvedilol (Coreg -) 12.5 mg PO BID [facility] Last Admin: 01/11/19 09:02 Dose: Not Given Chlorhexidine Gluconate (Hibiclens For Decolonization -) 1 applic TP HS [facility]ron[facility] ([facility]in[facility] -) [facility] [place] Last Admin: 01/11/19 18:22 Dose: Not Given Fenofibric Acid (Trilipix -) 135 mg PO DAILY [facility] Last Admin: 01/11/19 09:24 Dose: 135 mg Folic Acid (Folic Acid -) 1 mg PO DAILY [facility] Last Admin: 01/11/19 09:24 Dose: 1 mg Gabapentin (Neurontin -) 300 mg PO DAILY [facility] Last Admin: 01/11/19 09:24 Dose: 300 mg Guaifenesin (Robitussin -) 10 ml PO Q6H PRN PRN Reason: COUGH Last Admin: 01/09/19 21:35 Dose: 10 ml Famotidine/Sodium Chloride (Pepcid 20 Mg Premixed Ivpb -) 20 mg in 50 mls @ 100 mls/hr IVPB DAILY [facility] Last Admin: 01/11/19 09:24 Dose: 100 mls/hr Mupirocin (Bactroban Ointment (For Decolonization) -) 1 applic NS BID [facility] Stop: 01/16/19 21:59 Polyethylene Glycol (Miralax (For Daily Use) -) 17 gm PO DAILY [facility] Last Admin: 01/11/19 09:28 Dose: Not Given ASSESSMENT/PLAN: Pt. is a 68 y.o. M w/ PMHx. of Restrictive pericarditis Mesothelioma (on Chemo for last 2 years 6 months), Afib (on Eliquis), CHFpEF, and HTN presents with increased shortness of breath, and worsening anasarca after chemotherapy today. Cardiovascular/Pulmonology #Shortness of breath 2/2 Acute exacerbation on Chronic Heart Failure w/ preserved EF Hold Lasix as Pt. has been hypotensive c/w strict Is & Os and evaluate urine output after Lasix dose in addition to daily weights monitor BMP for expected elevation in Creatinine from new baseline of 1.7 and for potassium decrease Per chart review, discussion between Cardiology, Oncology and Nephrology--> little more to be done at this time. Would address Advance Directives with family and Palliative care in the morning. Usha Fitch is HCP for Pt. and stated she would be coming to the hospital to address with Pt. c/w Atovaquone for PCP PPx. c/w Coreg 12.5mg BID Per chart Pt. has angiodema reaction to ARB and fish oil CXR per my read shows increased LLL congestion, pulmonary vascular markings and heart size would continue with Duonebs PRN for bronchodilation with low threshold for low dose albuterol given history of Afib currently saturating 100% on 4L NC without accessory muscle use ABG on ED arrival pH: 7.37, pCO2: 42.9 on 3L NC Echo in June showing small pericardial effusion, EF: 60-65%, mild MR + TR, mild pulmonic valvular regurgitation,and RV function mildly reduced Rpt. Echo of poor quality, unable to evaluate LV fxn or wall motion abnormalities. #Afib c/w amiodarone and Eliquis #HTN would c/w Coreg would d/c amlodipine as it can cause edema and Pt. denies taking it anymore. #Mesothelioma Per chart review, discussion between Cardiology, Oncology and Nephrology--> little more to be done at this time. Infectious Disease #B/L lower extremity wounds 2/2 anasarca Per chart review, discussion between Cardiology, Oncology and Nephrology--> little more to be done at this time. Would address Advance Directives with family and Palliative care in the morning. Usha Fitch is HCP for Pt. and stated she would be coming to the hospital to address with Pt. Pt. is Full Code at this time. Dispo: We will continue to follow the patient. Thank you for this consultative opportunity. ATTENDING PHYSICIAN STATEMENT I saw and evaluated the patient. I reviewed the resident's note and discussed the case with the resident. I agree with the resident's findings and plan as documented. SUBJECTIVE: OBJECTIVE: ASSESSMENT AND PLAN:
[2019-01-11] MEDS ORDERED: MUPIROCIN 2% TOPICAL OINTMENT FOR DECOLONIZATION NS SCH (22:00)
[2019-01-11] MEDS ORDERED: CHLORHEXIDINE GLUCONATE 4% CLEANSER FOR DECOLONIZATION TP SCH (22:00)
[2019-01-12 06:59] LABS: BASO % 0.1 % (0-2.0); EOS % 0.3 % (0-4.5); HEMATOCRIT 27.2 % (35.4-49); HEMOGLOBIN 9.2 GM/dL (11.7-16.9); LYMPH % 3.7 % (8-40); MCH 27.4 pg (25.7-33.7); MCHC 33.6 g/dl (32.0-35.9); MEAN CELL VOLUME 81.6 fl (80-96); MEAN PLT VOLUME 9.1 fl (7.5-11.1); MONO % 1.5 % (3.8-10.2); NEUT % 94.4 % (42.8-82.8); RBC 3.34 M/mm3 (4.00-5.60); RDW 23.3 % (11.9-15.9); WHITE BLOOD COUNT 5.2 K/mm3 (4.0-10.0)
[2019-01-12] MEDS: DRONABINOL 2.5 MG CAPSULE PO SCH ×2 (07:44→18:28)
[2019-01-12 07:53] LABS: BILIRUBIN,TOTAL 1.8 mg/dL (0.2-1); CALCIUM 8.4 mg/dL (8.5-10.1); CREATININE 3.8 mg/dL (0.55-1.3); POTASSIUM 4.8 mmol/L (3.5-5.1); TOT PROT 5.2 g/dl (6.4-8.2)
[2019-01-12 07:54] LABS: BLOOD UREA NITROGEN 118.1 mg/dL (7-18)
[2019-01-12 08:07] LABS: PLATELET COUNT 69 K/MM3 (134-434)
[2019-01-12] MEDS ORDERED: PT OWN MED DRAWER 7, Y5N ONE (09:27)
[2019-01-12] MEDS: GABAPENTIN 300 MG CAPSULE (FP) PO SCH (09:37)
[2019-01-12] MEDS: APIXABAN 5 MG TABLET PO SCH ×2 (09:37→23:03)
[2019-01-12] MEDS: AMIODARONE HCL 200 MG TABLET (FP) PO SCH (09:37)
[2019-01-12] MEDS: FAMOTIDINE 20 MG/50 ML IVPB 20 MG/50 ML MG IVPB SCH (09:37)
[2019-01-12] MEDS: ATOVAQUONE 750 MG/5 ML (UNIT-DOSE PACKAGING) PO SCH (09:38)
[2019-01-12] MEDS: FOLIC ACID 1 MG TABLET (FP) PO SCH (09:38)
[2019-01-12] MEDS: CARVEDILOL 12.5 MG TABLET (FP) PO SCH ×2 (09:38→23:03)
[2019-01-12] MEDS: FENOFIBRIC ACID 135 MG CAP PO SCH (09:39)
[2019-01-12] MEDS: POLYETHYLENE GLYCOL 3350 119 GM BTL PO SCH (09:46)
[2019-01-12 10:07] LABS: ANISOCYTOSIS 1+; MACROCYTOSIS 0; PLATELET ESTIMATE DECREASED
--- NOTE | 2019-01-12 10:32 | PN ---
Progress Note, Physician History of Present Illness: PULMONARY AWAKE,LESS DYSPNEIC ON NASAL CANNULA - Current Medication List Current Medications: Active Medications Acetaminophen (Tylenol -) 650 mg PO Q6H PRN PRN Reason: FEVER Last Admin: 01/10/19 13:52 Dose: 650 mg Albuterol/Ipratropium (Duoneb -) 1 amp NEB Q4H PRN PRN Reason: SHORTNESS OF BREATH Last Admin: 01/10/19 13:22 Dose: 1 amp Amiodarone HCl (Cordarone -) 200 mg PO DAILY [facility] Last Admin: 01/12/19 09:37 Dose: Not Given Apixaban (Eliquis -) 5 mg PO BID [facility] Last Admin: 01/12/19 09:37 Dose: 5 mg Atovaquone (Mepron -) 1,500 mg PO DAILY [facility] Last Admin: 01/12/19 09:38 Dose: 1,500 mg Budesonide/Formoterol Fumarate (Symbicort 80/4.5mcg -) 2 puff IH BID [facility] Last Admin: 01/11/19 21:58 Dose: 2 puff Carvedilol (Coreg -) 12.5 mg PO BID [facility] Last Admin: 01/12/19 09:38 Dose: Not Given Chlorhexidine Gluconate (Hibiclens For Decolonization -) 1 applic TP HS [facility] Dronabinol (Marinol -) 5 mg PO BIDWM [facility] Last Admin: 01/12/19 07:44 Dose: 5 mg Fenofibric Acid (Trilipix -) 135 mg PO DAILY [facility] Last Admin: 01/12/19 09:39 Dose: 135 mg Folic Acid (Folic Acid -) 1 mg PO DAILY [facility] Last Admin: 01/12/19 09:38 Dose: 1 mg Gabapentin (Neurontin -) 300 mg PO DAILY [facility] Last Admin: 01/12/19 09:37 Dose: 300 mg Guaifenesin (Robitussin -) 10 ml PO Q6H PRN PRN Reason: COUGH Last Admin: 01/09/19 21:35 Dose: 10 ml Famotidine/Sodium Chloride (Pepcid 20 Mg Premixed Ivpb -) 20 mg in 50 mls @ 100 mls/hr IVPB DAILY [facility] Last Admin: 01/12/19 09:37 Dose: 100 mls/hr Mupirocin (Bactroban Ointment (For Decolonization) -) 1 applic NS BID [facility] Stop: 01/16/19 21:59 Polyethylene Glycol (Miralax (For Daily Use) -) 17 gm PO DAILY [facility] Last Admin: 01/12/19 09:46 Dose: Not Given - Objective Vital Signs: Vital Signs Temperature 98.0 F 01/12/19 02:00 Pulse Rate 98 H 01/12/19 02:00 Respiratory Rate 18 01/12/19 02:00 Blood Pressure 92/41 L 01/12/19 02:00 O2 Sat by Pulse Oximetry (%) 100 01/12/19 09:00 Constitutional: Yes: Well Nourished, Calm Eyes: Yes: WNL HENT: Yes: WNL Neck: Yes: WNL Cardiovascular: Yes: Regular Rate and Rhythm, S1, S2 Respiratory: Yes: Rhonchi (HEBERT RHONCHI) Gastrointestinal: Yes: Normal Bowel Sounds, Soft Extremities: Yes: WNL Edema: Yes Wound/Incision: Yes: Marguerite Removed Labs: CBC, BMP 01/12/19 05:45 01/12/19 05:45 INR, PTT INR Cancelled 01/04/19 21:17 Problem List - Problems (1) CHF exacerbation Code(s): I50.9 - HEART FAILURE, UNSPECIFIED Qualifiers: Heart failure type: unspecified Qualified Code(s): I50.9 - Heart failure, unspecified (2) CKD (chronic kidney disease) Code(s): N18.9 - CHRONIC KIDNEY DISEASE, UNSPECIFIED (3) COPD (chronic obstructive pulmonary disease) Code(s): J44.9 - CHRONIC OBSTRUCTIVE PULMONARY DISEASE, UNSPECIFIED Qualifiers: COPD type: unspecified COPD Qualified Code(s): J44.9 - Chronic obstructive pulmonary disease, unspecified (4) Mesothelioma (pleural) Code(s): C45.0 - MESOTHELIOMA OF PLEURA (5) Pedal edema Code(s): R60.0 - LOCALIZED EDEMA (6) Afib Code(s): I48.91 - UNSPECIFIED ATRIAL FIBRILLATION (7) HTN (hypertension) Code(s): I10 - ESSENTIAL (PRIMARY) HYPERTENSION (8) Shortness of breath Code(s): R06.02 - SHORTNESS OF BREATH Assessment/Plan ASSESSMENT/PLAN: SOB due to acute decompensated heart failure History of Constrictive Pericarditis History of Mesothelioma on chemotherapy worsening AFib on Eliquis CHF HTN ACUTE ON Chronic kidney injury O2 as needed Daily weights Continue Eliquis monitor lytes,renal function prognosis poor DR CHAUHAN
[2019-01-12] MEDS: BUDESONIDE/FORMETEROL FUMARATE 80/4.5 mcg INHALER IH SCH ×2 (11:28→23:04)
--- NOTE | 2019-01-12 13:08 | PN ---
Progress Note (short form) - Note Progress Note: s: stable edema. feels more comfortable today. no chest pain, palps, dizziness. no cigs Vital Signs Period Temp Pulse Resp BP Sys/Clements Pulse Ox Last 24 Hr 97.8 F-98.0 F 85-98 16-20 89-106/41-64 98-100 Constitutional: Yes: Well Nourished, No Distress Eyes: No: Sclera Icterus Respiratory: Yes: CTA Bilaterally, Diminished (bases). Gastrointestinal: Yes: Normal Bowel Sounds, Distention. No: Hepatomegaly, Palpable Mass, Tenderness Cardiovascular: Yes: Regular Rate and Rhythm JVD: No Carotid Bruit: No PMI: Non-Displaced Heart Sounds: Yes: S1, S2. No: Gallop Murmur: No: Systolic Murmur, Diastolic Murmur Extremities: No: Cool, Cyanosis Edema: 2+ cristian lower ext edema Integumentary: No: Jaundice Neurological: Yes: Alert, Oriented (x3), lethargic Psychiatric: No: Agitated ECG:sinus tach, low voltage, inferolat twi echo in 10/15 Dr. Meyer: normal LV, no pericardial effusion (no other signif abnormality) cath 09/2017 nl cors echo 06/2018 nl LV function, mildly reduced RV function, borderline LA enlargement, mild MR, mild TR, RVSP nl, small pericardial effusion <1 cm, no echo indication of tamponade [place] [facility] [place] LV function, mild RV dilation, mod decreased RV function, ao sclerosis, mild MR, mild TR, minimal pericardial effusion, valves not well visualized cardiac MRI 08[place]2018 [facility] [place]/RV size with mild biventricular LV dysfunction, small circumfrential pericardial effusion with increased ventricular interdependence, associated delayed enhancement of pericardium, findings c/w constrictive pericarditis. nonpsecific intramyocardial LGE seen in setting of NICM, findings c/w mesothelioma in L hemithorax, mod biatrial enlargement tele: afib, rate controlled cxr: congestive changes a/p: 1. 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 Newman, undergoing chemotherapy -got several days of lasix iv 80 bid with metolazone and no improvement in vol status and bun/cr rising, lasix dc'ed - BUN/Cr continue to rise, BUN >100, lethargy likely 2/2 uremia. - Given advanced malignancy may not be a candidate for dialysis, d/w renal - discussed case with palliative care, Dr. Newman - note progression of lung nodularity on CT chest - Talked with family - , sister and stepdaughter today, decision made to not pursue dialysis and change code status to DNR/DNI - continue carvedilol - holding doses for low BP, holding spironolactone for hyperkalemia - monitor daily weights, lytes, Cr 2.PAF: - s/[place]NA[place] [facility] [place], in sinus here - continue home eliquis, amiodarone, carvedilol 3. HTN: -episodes of hypotension, cont holding spironolactone and amlodipine 4. CKD: - as above
[2019-01-12] MEDS ORDERED: FUROSEMIDE 40 MG/4 ML INJECTABLE VIAL IVPUSH ONE (13:19)
--- NOTE | 2019-01-12 13:19 | PN ---
Progress Note, Physician History of Present Illness: Pt seen and examined at bedside. He is lethargic. He has shortness of breath. I had a long discussion with his and sister who is the HCP. They do not want HD therapy and have asked for him to be DNR/DNI. - Current Medication List Current Medications: Active Medications Acetaminophen (Tylenol -) 650 mg PO Q6H PRN PRN Reason: FEVER Last Admin: 01/10/19 13:52 Dose: 650 mg Albuterol/Ipratropium (Duoneb -) 1 amp NEB Q4H PRN PRN Reason: SHORTNESS OF BREATH Last Admin: 01/10/19 13:22 Dose: 1 amp Amiodarone HCl (Cordarone -) 200 mg PO DAILY [facility] Last Admin: 01/12/19 09:37 Dose: Not Given Apixaban (Eliquis -) 5 mg PO BID [facility] Last Admin: 01/12/19 09:37 Dose: 5 mg Atovaquone (Mepron -) 1,500 mg PO DAILY [facility] Last Admin: 01/12/19 09:38 Dose: 1,500 mg Budesonide/Formoterol Fumarate (Symbicort 80/4.5mcg -) 2 puff IH BID [facility] Last Admin: 01/12/19 11:28 Dose: 2 puff Carvedilol (Coreg -) 12.5 mg PO BID [facility] Last Admin: 01/12/19 09:38 Dose: Not Given Chlorhexidine Gluconate (Hibiclens For Decolonization -) 1 applic TP HS [facility] Dronabinol (Marinol -) 5 mg PO BIDWM [facility] Last Admin: 01/12/19 07:44 Dose: 5 mg Fenofibric Acid (Trilipix -) 135 mg PO DAILY [facility] Last Admin: 01/12/19 09:39 Dose: 135 mg Folic Acid (Folic Acid -) 1 mg PO DAILY [facility] Last Admin: 01/12/19 09:38 Dose: 1 mg Gabapentin (Neurontin -) 300 mg PO DAILY [facility] Last Admin: 01/12/19 09:37 Dose: 300 mg Guaifenesin (Robitussin -) 10 ml PO Q6H PRN PRN Reason: COUGH Last Admin: 01/09/19 21:35 Dose: 10 ml Famotidine/Sodium Chloride (Pepcid 20 Mg Premixed Ivpb -) 20 mg in 50 mls @ 100 mls/hr IVPB DAILY [facility] Last Admin: 01/12/19 09:37 Dose: 100 mls/hr Mupirocin (Bactroban Ointment (For Decolonization) -) 1 applic NS BID [facility] Stop: 01/16/19 21:59 Polyethylene Glycol (Miralax (For Daily Use) -) 17 gm PO DAILY [facility] Last Admin: 01/12/19 09:46 Dose: Not Given - Objective Vital Signs: Vital Signs Temperature 98 F 01/12/19 10:00 Pulse Rate 90 01/12/19 10:00 Respiratory Rate 20 01/12/19 10:00 Blood Pressure 95/60 01/12/19 10:00 O2 Sat by Pulse Oximetry (%) 100 01/12/19 09:00 Constitutional: Yes: Calm Eyes: Yes: Conjunctiva Clear HENT: Yes: Atraumatic Cardiovascular: Yes: S1, S2 Respiratory: Yes: On Nasal O2, Rhonchi Gastrointestinal: Yes: Soft Genitourinary: Yes: Incontinence Musculoskeletal: Yes: Muscle Weakness Edema: Yes Edema: LLE: 3+, RLE: 3+ Integumentary: Yes: Venous Stasis Changes Neurological: Yes: Confusion, Lethargy Labs: CBC, BMP 01/12/19 05:45 01/12/19 05:45 INR, PTT INR Cancelled 01/04/19 21:17 Problem List - Problems (1) CKD (chronic kidney disease) Code(s): N18.9 - CHRONIC KIDNEY DISEASE, UNSPECIFIED (2) COPD (chronic obstructive pulmonary disease) Code(s): J44.9 - CHRONIC OBSTRUCTIVE PULMONARY DISEASE, UNSPECIFIED Qualifiers: COPD type: unspecified COPD Qualified Code(s): J44.9 - Chronic obstructive pulmonary disease, unspecified (3) Mesothelioma (pleural) Code(s): C45.0 - MESOTHELIOMA OF PLEURA (4) Pedal edema Code(s): R60.0 - LOCALIZED EDEMA Assessment/Plan Current Medications Generic Name Dose Route Start Last Admin Trade Name Freq PRN Reason Stop Dose Admin Acetaminophen 650 mg 01/04/19 21:51 01/10/19 13:52 Tylenol - PO 650 mg Q6H PRN Administration FEVER Albuterol/Ipratropium 1 amp 01/04/19 21:52 01/10/19 13:22 Duoneb - NEB 1 amp Q4H PRN Administration SHORTNESS OF BREATH Amiodarone HCl 200 mg 01/05/19 10:00 01/12/19 09:37 Cordarone - PO Not Given DAILY [facility] Apixaban 5 mg 01/04/19 22:00 01/12/19 09:37 Eliquis - PO 5 mg BID [facility] Administration Atovaquone 1,500 mg 01/05/19 10:00 01/12/19 09:38 Mepron - PO 1,500 mg DAILY [facility] Administration Budesonide/Formoterol Fumarate 2 puff 01/04/19 22:00 01/12/19 11:28 Symbicort 80/4.5mcg - IH 2 puff BID [facility] Administration Carvedilol 12.5 mg 01/04/19 22:00 01/12/19 09:38 Coreg - PO Not Given BID [facility] Chlorhexidine Gluconate 1 applic 01/11/19 22:00 Hibiclens For Decolonization - TP HS [facility] Dronabinol 5 mg 01/09/19 17:30 01/12/19 07:44 Marinol - PO 5 mg BIDWM [facility] Administration Fenofibric Acid 135 mg 01/05/19 10:00 01/12/19 09:39 Trilipix - PO 135 mg DAILY [facility] Administration Folic Acid 1 mg 01/05/19 10:00 01/12/19 09:38 Folic Acid - PO 1 mg DAILY [facility] Administration Gabapentin 300 mg 01/05/19 10:00 01/12/19 09:37 Neurontin - PO 300 mg DAILY [facility] Administration Guaifenesin 10 ml 01/09/19 04:11 01/09/19 21:35 Robitussin - PO 10 ml Q6H PRN Administration COUGH Famotidine/Sodium Chloride 20 mg in 50 mls @ 100 mls/hr 01/09/19 10:06 09:37 Pepcid 20 Mg Premixed Ivpb - IVPB 100 mls/hr DAILY [facility] Administration Mupirocin 1 applic 01/11/19 22:00 Bactroban Ointment (For Decolonization) - NS 01/16/19 21:59 BID [facility] Polyethylene Glycol 17 gm 01/08/19 18:30 01/12/19 09:46 Miralax (For Daily Use) - PO Not Given DAILY [facility] Impression 1. CKD 2. mesothelioma 3. HTN 4. hyperkalemia 5. a-fib 6. anemia 7. 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 They also want to make him DNR/DNI and are discussing comfort care. - renal workup in progress - pt volume overloaded - discussed with cardio
--- NOTE | 2019-01-12 15:16 | PN ---
Progress Note, Physician History of Present Illness: weak sob - Current Medication List Current Medications: Active Medications Acetaminophen (Tylenol -) 650 mg PO Q6H PRN PRN Reason: FEVER Last Admin: 01/10/19 13:52 Dose: 650 mg Albuterol/Ipratropium (Duoneb -) 1 amp NEB Q4H PRN PRN Reason: SHORTNESS OF BREATH Last Admin: 01/10/19 13:22 Dose: 1 amp Amiodarone HCl (Cordarone -) 200 mg PO DAILY [facility] Last Admin: 01/12/19 09:37 Dose: Not Given Apixaban (Eliquis -) 5 mg PO BID [facility] Last Admin: 01/12/19 09:37 Dose: 5 mg Atovaquone (Mepron -) 1,500 mg PO DAILY [facility] Last Admin: 01/12/19 09:38 Dose: 1,500 mg Budesonide/Formoterol Fumarate (Symbicort 80/4.5mcg -) 2 puff IH BID [facility] Last Admin: 01/12/19 11:28 Dose: 2 puff Carvedilol (Coreg -) 12.5 mg PO BID [facility] Last Admin: 01/12/19 09:38 Dose: Not Given Chlorhexidine Gluconate (Hibiclens For Decolonization -) 1 applic TP [facility] Dronabinol (Marinol -) 5 mg PO BIDWM [facility] Last Admin: 01/12/19 07:44 Dose: 5 mg Fenofibric Acid (Trilipix -) 135 mg PO DAILY [facility] Last Admin: 01/12/19 09:39 Dose: 135 mg Folic Acid (Folic Acid -) 1 mg PO DAILY [facility] Last Admin: 01/12/19 09:38 Dose: 1 mg Gabapentin (Neurontin -) 300 mg PO DAILY [facility] Last Admin: 01/12/19 09:37 Dose: 300 mg Guaifenesin (Robitussin -) 10 ml PO Q6H PRN PRN Reason: COUGH Last Admin: 01/09/19 21:35 Dose: 10 ml Famotidine/Sodium Chloride (Pepcid 20 Mg Premixed Ivpb -) 20 mg in 50 mls @ 100 mls/hr IVPB DAILY [facility] Last Admin: 01/12/19 09:37 Dose: 100 mls/hr Mupirocin (Bactroban Ointment (For Decolonization) -) 1 applic NS BID [facility] Stop: 01/16/19 21:59 Polyethylene Glycol (Miralax (For Daily Use) -) 17 gm PO DAILY [facility] Last Admin: 01/12/19 09:46 Dose: Not Given - Objective Vital Signs: Vital Signs Temperature 97.8 F 01/12/19 14:00 Pulse Rate 95 H 01/12/19 14:00 Respiratory Rate 20 01/12/19 14:00 Blood Pressure 98/57 L 01/12/19 14:00 O2 Sat by Pulse Oximetry (%) 100 01/12/19 09:00 Constitutional: Yes: Calm, Mild Distress Cardiovascular: Yes: S1, S2 Respiratory: Yes: Regular, On Nasal O2 Gastrointestinal: Yes: Normal Bowel Sounds, Soft Musculoskeletal: Yes: WNL Extremities: Yes: WNL Neurological: Yes: Alert, Oriented Labs: CBC, BMP 01/12/19 05:45 01/12/19 05:45 INR, PTT INR Cancelled 01/04/19 21:17 - ....Imaging Cat Scan: Report Reviewed, Image Reviewed Assessment/Plan SOB due History of Constrictive Pericarditis History of Mesothelioma AFib CHF HTN stable consider nutrition protein shakes rest as per the team
--- NOTE | 2019-01-12 15:19 | PN ---
Progress Note, Physician - Current Medication List Current Medications: Active Medications Acetaminophen (Tylenol -) 650 mg PO Q6H PRN PRN Reason: FEVER Last Admin: 01/10/19 13:52 Dose: 650 mg Albuterol/Ipratropium (Duoneb -) 1 amp NEB Q4H PRN PRN Reason: SHORTNESS OF BREATH Last Admin: 01/10/19 13:22 Dose: 1 amp Amiodarone HCl (Cordarone -) 200 mg PO DAILY [facility] Last Admin: 01/12/19 09:37 Dose: Not Given Apixaban (Eliquis -) 5 mg PO BID [facility] Last Admin: 01/12/19 09:37 Dose: 5 mg Atovaquone (Mepron -) 1,500 mg PO DAILY [facility] Last Admin: 01/12/19 09:38 Dose: 1,500 mg Budesonide/Formoterol Fumarate (Symbicort 80/4.5mcg -) 2 puff IH BID [facility] Last Admin: 01/12/19 11:28 Dose: 2 puff Carvedilol (Coreg -) 12.5 mg PO BID [facility] Last Admin: 01/12/19 09:38 Dose: Not Given Chlorhexidine Gluconate (Hibiclens For Decolonization -) 1 applic TP HS [facility] Dronabinol (Marinol -) 5 mg PO BIDWM [facility] Last Admin: 01/12/19 07:44 Dose: 5 mg Fenofibric Acid (Trilipix -) 135 mg PO DAILY [facility] Last Admin: 01/12/19 09:39 Dose: 135 mg Folic Acid (Folic Acid -) 1 mg PO DAILY [facility] Last Admin: 01/12/19 09:38 Dose: 1 mg Gabapentin (Neurontin -) 300 mg PO DAILY [facility] Last Admin: 01/12/19 09:37 Dose: 300 mg Guaifenesin (Robitussin -) 10 ml PO Q6H PRN PRN Reason: COUGH Last Admin: 01/09/19 21:35 Dose: 10 ml Famotidine/Sodium Chloride (Pepcid 20 Mg Premixed Ivpb -) 20 mg in 50 mls @ 100 mls/hr IVPB DAILY [facility] Last Admin: 01/12/19 09:37 Dose: 100 mls/hr Mupirocin (Bactroban Ointment (For Decolonization) -) 1 applic NS BID [facility] Stop: 01/16/19 21:59 Polyethylene Glycol (Miralax (For Daily Use) -) 17 gm PO DAILY [facility] Last Admin: 01/12/19 09:46 Dose: Not Given - Objective Vital Signs: Vital Signs Temperature 97.8 F 01/12/19 14:00 Pulse Rate 95 H 01/12/19 14:00 Respiratory Rate 20 01/12/19 14:00 Blood Pressure 98/57 L 01/12/19 14:00 O2 Sat by Pulse Oximetry (%) 100 01/12/19 09:00 Labs: CBC, BMP 01/12/19 05:45 01/12/19 05:45 INR, PTT INR Cancelled 01/04/19 21:17
--- NOTE | 2019-01-12 18:30 | PN ---
Progress Note, Physician History of Present Illness: comfortable drowsy - Current Medication List Current Medications: Active Medications Acetaminophen (Tylenol -) 650 mg PO Q6H PRN PRN Reason: FEVER Last Admin: 01/10/19 13:52 Dose: 650 mg Albuterol/Ipratropium (Duoneb -) 1 amp NEB Q4H PRN PRN Reason: SHORTNESS OF BREATH Last Admin: 01/10/19 13:22 Dose: 1 amp Amiodarone HCl (Cordarone -) 200 mg PO DAILY [facility] Last Admin: 01/12/19 09:37 Dose: Not Given Apixaban (Eliquis -) 5 mg PO BID [facility] Last Admin: 01/12/19 09:37 Dose: 5 mg Atovaquone (Mepron -) 1,500 mg PO DAILY [facility] Last Admin: 01/12/19 09:38 Dose: 1,500 mg Budesonide/Formoterol Fumarate (Symbicort 80/4.5mcg -) 2 puff IH BID [facility] Last Admin: 01/12/19 11:28 Dose: 2 puff Carvedilol (Coreg -) 12.5 mg PO BID [facility] Last Admin: 01/12/19 09:38 Dose: Not Given Chlorhexidine Gluconate (Hibiclens For Decolonization -) 1 applic TP HS [facility] Dronabinol (Marinol -) 5 mg PO BIDWM [facility] Last Admin: 01/12/19 18:28 Dose: Not Given Fenofibric Acid (Trilipix -) 135 mg PO DAILY [facility] Last Admin: 01/12/19 09:39 Dose: 135 mg Folic Acid (Folic Acid -) 1 mg PO DAILY [facility] Last Admin: 01/12/19 09:38 Dose: 1 mg Gabapentin (Neurontin -) 300 mg PO DAILY [facility] Last Admin: 01/12/19 09:37 Dose: 300 mg Guaifenesin (Robitussin -) 10 ml PO Q6H PRN PRN Reason: COUGH Last Admin: 01/09/19 21:35 Dose: 10 ml Famotidine/Sodium Chloride (Pepcid 20 Mg Premixed Ivpb -) 20 mg in 50 mls @ 100 mls/hr IVPB DAILY [facility] Last Admin: 01/12/19 09:37 Dose: 100 mls/hr Mupirocin (Bactroban Ointment (For Decolonization) -) 1 applic NS BID [facility] Stop: 01/16/19 21:59 Polyethylene Glycol (Miralax (For Daily Use) -) 17 gm PO DAILY [facility] Last Admin: 01/12/19 09:46 Dose: Not Given - Objective Vital Signs: Vital Signs Temperature 97.8 F 01/12/19 14:00 Pulse Rate 95 H 01/12/19 14:00 Respiratory Rate 20 01/12/19 14:00 Blood Pressure 98/57 L 01/12/19 14:00 O2 Sat by Pulse Oximetry (%) 100 01/12/19 09:00 Constitutional: Yes: Calm HENT: Yes: Atraumatic Neck: Yes: Supple Cardiovascular: Yes: Regular Rate and Rhythm Respiratory: Yes: Rhonchi Gastrointestinal: Yes: Normal Bowel Sounds Edema: Yes Edema: LLE: 2+, RLE: 2+ Neurological: Yes: Other (drowsy) Labs: CBC, BMP 01/12/19 05:45 01/12/19 05:45 INR, PTT INR Cancelled 01/04/19 21:17 Problem List - Problems (1) Pedal edema Assessment/Plan: on diuretics nephro on board renal functions getting worse FAMILY MADE HIM DNR PAPERS DONE Code(s): R60.0 - LOCALIZED EDEMA (2) CYNDIE (acute kidney injury) Code(s): N17.9 - ACUTE KIDNEY FAILURE, UNSPECIFIED (3) Acute diastolic heart failure Code(s): I50.31 - ACUTE DIASTOLIC (CONGESTIVE) HEART FAILURE (4) Afib Assessment/Plan: on meds on AC Code(s): I48.91 - UNSPECIFIED ATRIAL FIBRILLATION (5) CHF exacerbation Code(s): I50.9 - HEART FAILURE, UNSPECIFIED Qualifiers: Heart failure type: unspecified Qualified Code(s): I50.9 - Heart failure, unspecified (6) COPD (chronic obstructive pulmonary disease) Assessment/Plan: prn nebs and oxygen Code(s): J44.9 - CHRONIC OBSTRUCTIVE PULMONARY DISEASE, UNSPECIFIED Qualifiers: COPD type: unspecified COPD Qualified Code(s): J44.9 - Chronic obstructive pulmonary disease, unspecified (7) HTN (hypertension) Assessment/Plan: on meds monitor Code(s): I10 - ESSENTIAL (PRIMARY) HYPERTENSION (8) Mesothelioma (pleural) Assessment/Plan: ct scan report seen disease process progressing Code(s): C45.0 - MESOTHELIOMA OF PLEURA (9) CKD (chronic kidney disease) Code(s): N18.9 - CHRONIC KIDNEY DISEASE, UNSPECIFIED (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 Assessment/Plan PATIENT IS DNR
--- NOTE | 2019-01-12 19:10 | PN ---
Progress Note (short form) - Note Progress Note: Patient seen and examined Coughing, lethargic at bedside Sister has signed for no HD and DNR status . Will begin sq morphine for pain and for respiratory status
[2019-01-13] MEDS ORDERED: ALBUTEROL SO4 2.5/IPRATROPIUM 0.5 INH SOL 3 ML VIAL.NEB. NEB PRN (08:42)
[2019-01-13] MEDS ORDERED: ACETAMINOPHEN 325 MG TABLET (FP) PO PRN (08:42)
[2019-01-13] MEDS ORDERED: guaiFENesin 200 MG/10 ML 10 ML UNIT-DOSE CUPS PO PRN (08:42)
[2019-01-13] MEDS ORDERED: FAMOTIDINE 20 MG/50 ML IVPB 20 MG/50 ML MG IVPB SCH (10:00)
[2019-01-13] MEDS ORDERED: PT OWN MED DRAWER 7, Y5N ONE (10:32)
[2019-01-13] MEDS: APIXABAN 5 MG TABLET PO SCH ×2 (10:45→22:48)
[2019-01-13] MEDS: GABAPENTIN 300 MG CAPSULE (FP) PO SCH (10:45)
[2019-01-13] MEDS: FENOFIBRIC ACID 135 MG CAP PO SCH (10:45)
[2019-01-13] MEDS: AMIODARONE HCL 200 MG TABLET (FP) PO SCH (10:45)
[2019-01-13] MEDS: ATOVAQUONE 750 MG/5 ML (UNIT-DOSE PACKAGING) PO SCH (10:46)
[2019-01-13] MEDS: FOLIC ACID 1 MG TABLET (FP) PO SCH (10:46)
[2019-01-13] MEDS: CARVEDILOL 12.5 MG TABLET (FP) PO SCH ×2 (10:46→22:48)
[2019-01-13] MEDS: POLYETHYLENE GLYCOL 3350 119 GM BTL PO SCH (10:46)
[2019-01-13] MEDS: BUDESONIDE/FORMETEROL FUMARATE 80/4.5 mcg INHALER IH SCH ×2 (10:47→22:48)
[2019-01-13] MEDS: MORPHINE SULFATE 2 MG/ML VIAL SQ PRN (10:47)
--- NOTE | 2019-01-13 11:54 | PN ---
Progress Note (short form) - Note Progress Note: s: no chest pain, palps. stable dyspnea Current Medications Acetaminophen (Tylenol -) 650 mg PO Q6H PRN PRN Reason: FEVER Albuterol/Ipratropium (Duoneb -) 1 amp NEB Q4H PRN PRN Reason: SHORTNESS OF BREATH Amiodarone HCl (Cordarone -) 200 mg PO DAILY [facility] Last Admin: 01/13/19 10:45 Dose: 200 mg Apixaban (Eliquis -) 5 mg PO BID [facility] Last Admin: 01/13/19 10:45 Dose: 5 mg Atovaquone (Mepron -) 1,500 mg PO DAILY [facility] Last Admin: 01/13/19 10:46 Dose: 1,500 mg Budesonide/Formoterol Fumarate (Symbicort 80/4.5mcg -) 2 puff IH BID [facility] Last Admin: 01/13/19 10:47 Dose: 2 puff Carvedilol (Coreg -) 12.5 mg PO BID [facility] Last Admin: 01/13/19 10:46 Dose: 12.5 mg Dronabinol (Marinol -) 5 mg PO BIDWM [facility] Fenofibric Acid (Trilipix -) 135 mg PO DAILY [facility] Last Admin: 01/13/19 10:45 Dose: 135 mg Folic Acid (Folic Acid -) 1 mg PO DAILY [facility] Last Admin: 01/13/19 10:46 Dose: 1 mg Gabapentin (Neurontin -) 300 mg PO DAILY [facility] Last Admin: 01/13/19 10:45 Dose: 300 mg Guaifenesin (Robitussin -) 10 ml PO Q6H PRN PRN Reason: COUGH Morphine Sulfate (Morphine Sulfate) 2 mg SQ Q3H PRN PRN Reason: PAIN LEVEL 1-5 Last Admin: 01/13/19 10:47 Dose: 2 mg Polyethylene Glycol (Miralax (For Daily Use) -) 17 gm PO DAILY [facility] Last Admin: 01/13/19 10:46 Dose: 17 gm Vital Signs Period Temp Pulse Resp BP Sys/Clements Pulse Ox Last 24 Hr 97.1 F-98.2 F 86-104 18-20 90-106/54-62 100 Constitutional: Yes: Well Nourished, No Distress Eyes: No: Sclera Icterus Respiratory: Yes: CTA Bilaterally, Diminished (bases). Gastrointestinal: Yes: Normal Bowel Sounds, Distention. No: Hepatomegaly, Palpable Mass, Tenderness Cardiovascular: Yes: Regular Rate and Rhythm JVD: No Carotid Bruit: No PMI: Non-Displaced Heart Sounds: Yes: S1, S2. No: Gallop Murmur: No: Systolic Murmur, Diastolic Murmur Extremities: No: Cool, Cyanosis Edema: 2+ cristian lower ext edema Integumentary: No: Jaundice Neurological: Yes: Alert, Oriented (x3), lethargic Psychiatric: No: Agitated ECG:sinus tach, low voltage, inferolat twi echo in 10/15 Dr. Meyer: normal LV, no pericardial effusion (no other signif abnormality) cath 09/2017 nl cors echo 06/2018 nl LV function, mildly reduced RV function, borderline LA enlargement, mild MR, mild TR, RVSP nl, small pericardial effusion <1 cm, no echo indication of tamponade echo 08/2018 [facility] [place] with definity nl LV function, mild RV dilation, mod decreased RV function, ao sclerosis, mild MR, mild TR, minimal pericardial effusion, valves not well visualized cardiac MRI 08/2018 [facility] [place] nl LV/RV size with mild biventricular LV dysfunction, small circumfrential pericardial effusion with increased ventricular interdependence, associated delayed enhancement of pericardium, findings c/w constrictive pericarditis. nonpsecific intramyocardial LGE seen in setting of NICM, findings c/w mesothelioma in L hemithorax, mod biatrial enlargement tele: afib, rate controlled cxr: congestive changes a/p: 1. 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 Newman, was undergoing chemotherapy -got several days of lasix iv 80 bid with metolazone and no improvement in vol status and bun/cr rising, lasix dc'ed - BUN/Cr continue to rise, BUN >100, lethargy likely 2/2 uremia. - Given advanced malignancy may not be a candidate for dialysis, d/w renal - discussed case with palliative care, Dr. Newman - note progression of lung nodularity on CT chest - decision made to not pursue dialysis and change code status to DNR/DNI - discussing transition to comfort measures - receiving PRN morphine, lasix 2.PAF: - s/p ANA/CV at [facility] [place] 08/2018, was in sinus; now in afib - continue home eliquis, amiodarone, carvedilol for now 3. HTN: -episodes of hypotension, cont carvedilol; holding spironolactone and amlodipine 4. CKD: - as above DC telemetry
[2019-01-13] MEDS ORDERED: FUROSEMIDE 40 MG/4 ML INJECTABLE VIAL IVPUSH ONE (12:12)
--- NOTE | 2019-01-13 12:12 | PN ---
Progress Note, Physician History of Present Illness: Pt seen and examined at bedside. He appears more comfortable than yesterday. - Current Medication List Current Medications: Active Medications Acetaminophen (Tylenol -) 650 mg PO Q6H PRN PRN Reason: FEVER Albuterol/Ipratropium (Duoneb -) 1 amp NEB Q4H PRN PRN Reason: SHORTNESS OF BREATH Amiodarone HCl (Cordarone -) 200 mg PO DAILY [facility] Last Admin: 01/13/19 10:45 Dose: 200 mg Apixaban (Eliquis -) 5 mg PO BID [facility] Last Admin: 01/13/19 10:45 Dose: 5 mg Atovaquone (Mepron -) 1,500 mg PO DAILY [facility] Last Admin: 01/13/19 10:46 Dose: 1,500 mg Budesonide/Formoterol Fumarate (Symbicort 80/4.5mcg -) 2 puff IH BID [facility] Last Admin: 01/13/19 10:47 Dose: 2 puff Carvedilol (Coreg -) 12.5 mg PO BID [facility] Last Admin: 01/13/19 10:46 Dose: 12.5 mg Dronabinol (Marinol -) 5 mg PO BIDWM [facility] Fenofibric Acid (Trilipix -) 135 mg PO DAILY [facility] Last Admin: 01/13/19 10:45 Dose: 135 mg Folic Acid (Folic Acid -) 1 mg PO DAILY [facility] Last Admin: 01/13/19 10:46 Dose: 1 mg Gabapentin (Neurontin -) 300 mg PO DAILY [facility] Last Admin: 01/13/19 10:45 Dose: 300 mg Guaifenesin (Robitussin -) 10 ml PO Q6H PRN PRN Reason: COUGH Morphine Sulfate (Morphine Sulfate) 2 mg SQ Q3H PRN PRN Reason: PAIN LEVEL 1-5 Last Admin: 01/13/19 10:47 Dose: 2 mg Polyethylene Glycol (Miralax (For Daily Use) -) 17 gm PO DAILY [facility] Last Admin: 01/13/19 10:46 Dose: 17 gm - Objective Vital Signs: Vital Signs Temperature 97.8 F 01/13/19 06:00 Pulse Rate 86 01/13/19 06:00 Respiratory Rate 18 01/13/19 06:00 Blood Pressure 90/60 01/13/19 06:00 O2 Sat by Pulse Oximetry (%) 100 01/12/19 21:00 Constitutional: Yes: Calm Eyes: Yes: Conjunctiva Clear Cardiovascular: Yes: S1, S2 Respiratory: Yes: On Nasal O2, Rhonchi Gastrointestinal: Yes: Soft Genitourinary: Yes: Incontinence Musculoskeletal: Yes: Muscle Weakness Edema: Yes Edema: LLE: 2+, RLE: 2+ Neurological: Yes: Confusion Labs: CBC, BMP 01/12/19 05:45 01/12/19 05:45 INR, PTT INR Cancelled 01/04/19 21:17 Problem List - Problems (1) CKD (chronic kidney disease) Code(s): N18.9 - CHRONIC KIDNEY DISEASE, UNSPECIFIED (2) COPD (chronic obstructive pulmonary disease) Code(s): J44.9 - CHRONIC OBSTRUCTIVE PULMONARY DISEASE, UNSPECIFIED Qualifiers: COPD type: unspecified COPD Qualified Code(s): J44.9 - Chronic obstructive pulmonary disease, unspecified (3) Mesothelioma (pleural) Code(s): C45.0 - MESOTHELIOMA OF PLEURA (4) Pedal edema Code(s): R60.0 - LOCALIZED EDEMA Assessment/Plan Current Medications Generic Name Dose Route Start Last Admin Trade Name Freq PRN Reason Stop Dose Admin Acetaminophen 650 mg 01/13/19 08:42 Tylenol - PO Q6H PRN FEVER Albuterol/Ipratropium 1 amp 01/13/19 08:42 Duoneb - NEB Q4H PRN SHORTNESS OF BREATH Amiodarone HCl 200 mg 01/13/19 10:00 01/13/19 10:45 Cordarone - PO 200 mg DAILY [facility] Administration Apixaban 5 mg 01/13/19 10:00 01/13/19 10:45 Eliquis - PO 5 mg BID [facility] Administration Atovaquone 1,500 mg 01/13/19 10:00 01/13/19 10:46 Mepron - PO 1,500 mg DAILY [facility] Administration Budesonide/Formoterol Fumarate 2 puff 01/13/19 10:00 01/13/19 10:47 Symbicort 80/4.5mcg - IH 2 puff BID [facility] Administration Carvedilol 12.5 mg 01/13/19 10:00 01/13/19 10:46 Coreg - PO 12.5 mg BID [facility] Administration Dronabinol 5 mg 01/13/19 17:30 Marinol - PO BIDWM [facility] Fenofibric Acid 135 mg 01/13/19 10:00 01/13/19 10:45 Trilipix - PO 135 mg DAILY [facility] Administration Folic Acid 1 mg 01/13/19 10:00 01/13/19 10:46 Folic Acid - PO 1 mg DAILY [facility] Administration Gabapentin 300 mg 01/13/19 10:00 01/13/19 10:45 Neurontin - PO 300 mg DAILY [facility] Administration Guaifenesin 10 ml 01/13/19 08:42 Robitussin - PO Q6H PRN COUGH Morphine Sulfate 2 mg 01/12/19 19:11 01/13/19 10:47 Morphine Sulfate SQ 2 mg Q3H PRN Administration PAIN LEVEL 1-5 Polyethylene Glycol 17 gm 01/13/19 10:00 01/13/19 10:46 Miralax (For Daily Use) - PO 17 gm DAILY [facility] Administration Impression 1. CKD 2. mesothelioma 3. HTN 4. hyperkalemia 5. a-fib 6. 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
--- NOTE | 2019-01-13 14:47 | PN ---
Progress Note, Physician History of Present Illness: more comfortable today family in room - Current Medication List Current Medications: Active Medications Acetaminophen (Tylenol -) 650 mg PO Q6H PRN PRN Reason: FEVER Albuterol/Ipratropium (Duoneb -) 1 amp NEB Q4H PRN PRN Reason: SHORTNESS OF BREATH Amiodarone HCl (Cordarone -) 200 mg PO DAILY [facility] Last Admin: 01/13/19 10:45 Dose: 200 mg Apixaban (Eliquis -) 5 mg PO BID [facility] Last Admin: 01/13/19 10:45 Dose: 5 mg Atovaquone (Mepron -) 1,500 mg PO DAILY [facility] Last Admin: 01/13/19 10:46 Dose: 1,500 mg Budesonide/Formoterol Fumarate (Symbicort 80/4.5mcg -) 2 puff IH BID [facility] Last Admin: 01/13/19 10:47 Dose: 2 puff Carvedilol (Coreg -) 12.5 mg PO BID [facility] Last Admin: 01/13/19 10:46 Dose: 12.5 mg Dronabinol (Marinol -) 5 mg PO BIDWM [facility] Fenofibric Acid (Trilipix -) 135 mg PO DAILY [facility] Last Admin: 01/13/19 10:45 Dose: 135 mg Folic Acid (Folic Acid -) 1 mg PO DAILY [facility] Last Admin: 01/13/19 10:46 Dose: 1 mg Gabapentin (Neurontin -) 300 mg PO DAILY [facility] Last Admin: 01/13/19 10:45 Dose: 300 mg Guaifenesin (Robitussin -) 10 ml PO Q6H PRN PRN Reason: COUGH Morphine Sulfate (Morphine Sulfate) 2 mg SQ Q3H PRN PRN Reason: PAIN LEVEL 1-5 Last Admin: 01/13/19 10:47 Dose: 2 mg Polyethylene Glycol (Miralax (For Daily Use) -) 17 gm PO DAILY [facility] Last Admin: 01/13/19 10:46 Dose: 17 gm - Objective Vital Signs: Vital Signs Temperature 97.8 F 01/13/19 06:00 Pulse Rate 86 01/13/19 06:00 Respiratory Rate 18 01/13/19 06:00 Blood Pressure 90/60 01/13/19 06:00 O2 Sat by Pulse Oximetry (%) 100 01/12/19 21:00 Constitutional: Yes: No Distress, Calm, Other Cardiovascular: Yes: S1, S2 Respiratory: Yes: Regular, On Nasal O2, Poor Air Entry Gastrointestinal: Yes: Normal Bowel Sounds, Soft Musculoskeletal: Yes: WNL Extremities: Yes: WNL Neurological: Yes: Alert, Lethargy Psychiatric: Yes: Alert Labs: CBC, BMP 01/12/19 05:45 01/12/19 05:45 INR, PTT INR Cancelled 01/04/19 21:17 Assessment/Plan SOB due History of Constrictive Pericarditis History of Mesothelioma AFib CHF HTN stable consider nutrition protein shakes rest as per the team
[2019-01-13] MEDS: DRONABINOL 2.5 MG CAPSULE PO SCH (16:50)
--- NOTE | 2019-01-13 18:13 | PN ---
Progress Note, Physician History of Present Illness: comfortable - Current Medication List Current Medications: Active Medications Acetaminophen (Tylenol -) 650 mg PO Q6H PRN PRN Reason: FEVER Albuterol/Ipratropium (Duoneb -) 1 amp NEB Q4H PRN PRN Reason: SHORTNESS OF BREATH Amiodarone HCl (Cordarone -) 200 mg PO DAILY [facility] Last Admin: 01/13/19 10:45 Dose: 200 mg Apixaban (Eliquis -) 5 mg PO BID [facility] Last Admin: 01/13/19 10:45 Dose: 5 mg Atovaquone (Mepron -) 1,500 mg PO DAILY [facility] Last Admin: 01/13/19 10:46 Dose: 1,500 mg Budesonide/Formoterol Fumarate (Symbicort 80/4.5mcg -) 2 puff IH BID [facility] Last Admin: 01/13/19 10:47 Dose: 2 puff Carvedilol (Coreg -) 12.5 mg PO BID [facility] Last Admin: 01/13/19 10:46 Dose: 12.5 mg Dronabinol (Marinol -) 5 mg PO BIDWM [facility] Last Admin: 01/13/19 16:50 Dose: Not Given Fenofibric Acid (Trilipix -) 135 mg PO DAILY [facility] Last Admin: 01/13/19 10:45 Dose: 135 mg Folic Acid (Folic Acid -) 1 mg PO DAILY [facility] Last Admin: 01/13/19 10:46 Dose: 1 mg Gabapentin (Neurontin -) 300 mg PO DAILY [facility] Last Admin: 01/13/19 10:45 Dose: 300 mg Guaifenesin (Robitussin -) 10 ml PO Q6H PRN PRN Reason: COUGH Morphine Sulfate (Morphine Sulfate) 2 mg SQ Q3H PRN PRN Reason: PAIN LEVEL 1-5 Last Admin: 01/13/19 10:47 Dose: 2 mg Polyethylene Glycol (Miralax (For Daily Use) -) 17 gm PO DAILY [facility] Last Admin: 01/13/19 10:46 Dose: 17 gm - Objective Vital Signs: Vital Signs Temperature 97.5 F L 01/13/19 14:15 Pulse Rate 82 01/13/19 14:15 Respiratory Rate 16 01/13/19 14:15 Blood Pressure 87/56 L 01/13/19 14:15 O2 Sat by Pulse Oximetry (%) 100 01/13/19 09:00 Constitutional: Yes: No Distress HENT: Yes: Atraumatic Neck: Yes: Supple Cardiovascular: Yes: Regular Rate and Rhythm Respiratory: Yes: Rhonchi Gastrointestinal: Yes: Normal Bowel Sounds Extremities: Yes: WNL Edema: Yes Edema: RUE: 2+, LLE: 2+ Labs: CBC, BMP 01/12/19 05:45 01/12/19 05:45 INR, PTT INR Cancelled 01/04/19 21:17 Problem List - Problems (1) Pedal edema Assessment/Plan: on diuretics nephro on board renal functions getting worse Code(s): R60.0 - LOCALIZED EDEMA (2) CYNDIE (acute kidney injury) Code(s): N17.9 - ACUTE KIDNEY FAILURE, UNSPECIFIED (3) Acute diastolic heart failure Code(s): I50.31 - ACUTE DIASTOLIC (CONGESTIVE) HEART FAILURE (4) Afib Assessment/Plan: on meds on AC Code(s): I48.91 - UNSPECIFIED ATRIAL FIBRILLATION (5) CHF exacerbation Code(s): I50.9 - HEART FAILURE, UNSPECIFIED Qualifiers: Heart failure type: unspecified Qualified Code(s): I50.9 - Heart failure, unspecified (6) COPD (chronic obstructive pulmonary disease) Assessment/Plan: prn nebs and oxygen Code(s): J44.9 - CHRONIC OBSTRUCTIVE PULMONARY DISEASE, UNSPECIFIED Qualifiers: COPD type: unspecified COPD Qualified Code(s): J44.9 - Chronic obstructive pulmonary disease, unspecified (7) HTN (hypertension) Assessment/Plan: on meds monitor Code(s): I10 - ESSENTIAL (PRIMARY) HYPERTENSION (8) Mesothelioma (pleural) Assessment/Plan: ct scan report seen disease process progressing Code(s): C45.0 - MESOTHELIOMA OF PLEURA (9) CKD (chronic kidney disease) Code(s): N18.9 - CHRONIC KIDNEY DISEASE, UNSPECIFIED (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 Assessment/Plan PATIENT IS DNR
--- NOTE | 2019-01-13 20:14 | PN ---
Progress Note (short form) - Note Progress Note: Patient seen and examined Cmfortable , sedated on morphine Daughter at bedside Worsening kidney function . ?? value of blood letting.
[2019-01-14] MEDS: FOLIC ACID 1 MG TABLET (FP) PO SCH (10:36)
[2019-01-14] MEDS: DRONABINOL 2.5 MG CAPSULE PO SCH ×2 (10:36→16:53)
[2019-01-14] MEDS: GABAPENTIN 300 MG CAPSULE (FP) PO SCH (10:36)
[2019-01-14] MEDS: AMIODARONE HCL 200 MG TABLET (FP) PO SCH (10:36)
[2019-01-14] MEDS: FENOFIBRIC ACID 135 MG CAP PO SCH (10:36)
[2019-01-14] MEDS: APIXABAN 5 MG TABLET PO SCH ×2 (10:37→22:01)
[2019-01-14] MEDS: MORPHINE SULFATE 2 MG/ML VIAL SQ PRN ×2 (10:37→18:52)
[2019-01-14] MEDS: CARVEDILOL 12.5 MG TABLET (FP) PO SCH ×2 (10:42→21:59)
[2019-01-14] MEDS: POLYETHYLENE GLYCOL 3350 119 GM BTL PO SCH (10:42)
[2019-01-14] MEDS ORDERED: PT OWN MED DRAWER 7, Y5N ONE (10:52)
--- NOTE | 2019-01-14 11:35 | PN ---
Progress Note (short form) - Note Progress Note: s:lethargic, appears comfortable 2 Current Medications Generic Name Dose Route Start Last Admin Trade Name Freq PRN Reason Stop Dose Admin Acetaminophen 650 mg 01/13/19 08:42 Tylenol - PO Q6H PRN FEVER Albuterol/Ipratropium 1 amp 01/13/19 08:42 Duoneb - NEB Q4H PRN SHORTNESS OF BREATH Amiodarone HCl 200 mg 01/13/19 10:00 01/14/19 10:36 Cordarone - PO 200 mg DAILY JANINE Administration Apixaban 5 mg 01/13/19 10:00 01/14/19 10:37 Eliquis - PO 5 mg BID JANINE Administration Atovaquone 1,500 mg 01/13/19 10:00 01/13/19 10:46 Mepron - PO 1,500 mg DAILY JANINE Administration Budesonide/Formoterol Fumarate 2 puff 01/13/19 10:00 01/13/19 22:48 Symbicort 80/4.5mcg - IH 2 puff BID JANINE Administration Carvedilol 12.5 mg 01/13/19 10:00 01/14/19 10:42 Coreg - PO Not Given BID JANINE Dronabinol 5 mg 01/13/19 17:30 01/14/19 10:36 Marinol - PO 5 mg BIDWM JANINE Administration Fenofibric Acid 135 mg 01/13/19 10:00 01/14/19 10:36 Trilipix - PO 135 mg DAILY JANINE Administration Folic Acid 1 mg 01/13/19 10:00 01/14/19 10:36 Folic Acid - PO 1 mg DAILY JANINE Administration Gabapentin 300 mg 01/13/19 10:00 01/14/19 10:36 Neurontin - PO 300 mg DAILY JANINE Administration Guaifenesin 10 ml 01/13/19 08:42 Robitussin - PO Q6H PRN COUGH Morphine Sulfate 2 mg 01/12/19 19:11 01/14/19 10:37 Morphine Sulfate SQ 2 mg Q3H PRN Administration PAIN LEVEL 1-5 Polyethylene Glycol 17 gm 01/13/19 10:00 01/14/19 10:42 Miralax (For Daily Use) - PO 17 gm DAILY JANINE Administration Vital Signs Period Temp Pulse Resp BP Sys/Clements Pulse Ox Last 24 Hr 96.4 F-97.8 F 82-92 16-18 87-109/56-68 98 Constitutional: Yes: Well Nourished, No Distress Eyes: No: Sclera Icterus Respiratory: Yes: CTA Bilaterally ant, poor eff Gastrointestinal: Yes: Normal Bowel Sounds, Distention. No: Hepatomegaly, Palpable Mass, Tenderness Cardiovascular: Yes: Regular Rate and Rhythm JVD: No Heart Sounds: Yes: S1, S2. No: Gallop Murmur: No: Systolic Murmur, Diastolic Murmur Extremities: No: Cool, Cyanosis Edema: 2+ cristian lower ext edema Integumentary: No: Jaundice Neurological: Yes: lethargic Psychiatric: No: Agitated CBC, BMP 01/12/19 05:45 01/12/19 05:45 ECG:sinus tach, low voltage, inferolat twi echo in 10/15 Dr. Meyer: normal LV, no pericardial effusion (no other signif abnormality) cath 09/2017 nl cors echo 06/2018 nl LV function, mildly reduced RV function, borderline LA enlargement, mild MR, mild TR, RVSP nl, small pericardial effusion <1 cm, no echo indication of tamponade echo 08/2018 [facility] [place] with definity nl LV function, mild RV dilation, mod decreased RV function, ao sclerosis, mild MR, mild TR, minimal pericardial effusion, valves not well visualized cardiac MRI 08/2018 [facility] [place] nl LV/RV size with mild biventricular LV dysfunction, small circumfrential pericardial effusion with increased ventricular interdependence, associated delayed enhancement of pericardium, findings c/w constrictive pericarditis. nonpsecific intramyocardial LGE seen in setting of NICM, findings c/w mesothelioma in L hemithorax, mod biatrial enlargement tele: sinus cxr: congestive changes a/p: 1. Constrictive pericarditis, acute diastolic chf, mesothelioma: - recently admitted 08/2018 for CHF exac, transferred to [facility] [place] found to have constrictive pericarditis 2/2 mesothelioma - was evaluated by CT surgery at [facility] [place] - not a candidate for pericardial stripping - onc consulted - sees Dr. Newman, was undergoing chemotherapy -got several days of lasix iv 80 bid with metolazone and no improvement in vol status and bun/cr rising, lasix dc'ed - BUN/Cr continue to rise, BUN >100, lethargy likely 2/2 uremia. - Given advanced malignancy may not be a candidate for dialysis, d/w renal - discussed case with palliative care, Dr. Newman - note progression of lung nodularity on CT chest - decision made to not pursue dialysis and change code status to DNR/DNI - discussing transition to comfort measures - receiving PRN morphine, lasix 2.PAF: - s/p ANA/CV at [facility] [place] 08/2018, was in sinus; now in afib - continue home eliquis, amiodarone, carvedilol for now 3. HTN: -episodes of hypotension, cont carvedilol; holding spironolactone and amlodipine 4. CKD: - as above DC telemetry
--- NOTE | 2019-01-14 12:20 | PN ---
Progress Note, Physician History of Present Illness: Pt seen and examined at bedside. He appears fatigued. He is confused. - Current Medication List Current Medications: Active Medications Acetaminophen (Tylenol -) 650 mg PO Q6H PRN PRN Reason: FEVER Albuterol/Ipratropium (Duoneb -) 1 amp NEB Q4H PRN PRN Reason: SHORTNESS OF BREATH Amiodarone HCl (Cordarone -) 200 mg PO DAILY [facility] Last Admin: 01/14/19 10:36 Dose: 200 mg Apixaban (Eliquis -) 5 mg PO BID [facility] Last Admin: 01/14/19 10:37 Dose: 5 mg Atovaquone (Mepron -) 1,500 mg PO DAILY [facility] Last Admin: 01/13/19 10:46 Dose: 1,500 mg Budesonide/Formoterol Fumarate (Symbicort 80/4.5mcg -) 2 puff IH BID [facility] Last Admin: 01/13/19 22:48 Dose: 2 puff Carvedilol (Coreg -) 12.5 mg PO BID [facility] Last Admin: 01/14/19 10:42 Dose: Not Given Dronabinol (Marinol -) 5 mg PO BIDWM [facility] Last Admin: 01/14/19 10:36 Dose: 5 mg Fenofibric Acid (Trilipix -) 135 mg PO DAILY [facility] Last Admin: 01/14/19 10:36 Dose: 135 mg Folic Acid (Folic Acid -) 1 mg PO DAILY [facility] Last Admin: 01/14/19 10:36 Dose: 1 mg Gabapentin (Neurontin -) 300 mg PO DAILY [facility] Last Admin: 01/14/19 10:36 Dose: 300 mg Guaifenesin (Robitussin -) 10 ml PO Q6H PRN PRN Reason: COUGH Morphine Sulfate (Morphine Sulfate) 2 mg SQ Q3H PRN PRN Reason: PAIN LEVEL 1-5 Last Admin: 01/14/19 10:37 Dose: 2 mg Polyethylene Glycol (Miralax (For Daily Use) -) 17 gm PO DAILY [facility] Last Admin: 01/14/19 10:42 Dose: 17 gm - Objective Vital Signs: Vital Signs Temperature 96.4 F L 01/14/19 02:00 Pulse Rate 86 01/14/19 02:00 Respiratory Rate 18 01/14/19 02:00 Blood Pressure 95/58 L 01/14/19 02:00 O2 Sat by Pulse Oximetry (%) 98 01/13/19 21:00 Constitutional: Yes: Calm, Mild Distress Eyes: Yes: Conjunctiva Clear HENT: Yes: Atraumatic Cardiovascular: Yes: S1, S2 Respiratory: Yes: On Nasal O2, Wheezes Gastrointestinal: Yes: Soft Genitourinary: Yes: Incontinence Musculoskeletal: Yes: Muscle Weakness Edema: Yes Edema: LLE: 2+, RLE: 2+ Neurological: Yes: Confusion Labs: CBC, BMP 01/12/19 05:45 01/12/19 05:45 INR, PTT INR Cancelled 01/04/19 21:17 Problem List - Problems (1) CKD (chronic kidney disease) Code(s): N18.9 - CHRONIC KIDNEY DISEASE, UNSPECIFIED (2) COPD (chronic obstructive pulmonary disease) Code(s): J44.9 - CHRONIC OBSTRUCTIVE PULMONARY DISEASE, UNSPECIFIED Qualifiers: COPD type: unspecified COPD Qualified Code(s): J44.9 - Chronic obstructive pulmonary disease, unspecified (3) Mesothelioma (pleural) Code(s): C45.0 - MESOTHELIOMA OF PLEURA (4) Pedal edema Code(s): R60.0 - LOCALIZED EDEMA Assessment/Plan Current Medications Generic Name Dose Route Start Last Admin Trade Name Freq PRN Reason Stop Dose Admin Acetaminophen 650 mg 01/13/19 08:42 Tylenol - PO Q6H PRN FEVER Albuterol/Ipratropium 1 amp 01/13/19 08:42 Duoneb - NEB Q4H PRN SHORTNESS OF BREATH Amiodarone HCl 200 mg 01/13/19 10:00 01/14/19 10:36 Cordarone - PO 200 mg DAILY JANINE Administration Apixaban 5 mg 01/13/19 10:00 01/14/19 10:37 Eliquis - PO 5 mg BID JANINE Administration Atovaquone 1,500 mg 01/13/19 10:00 01/13/19 10:46 Mepron - PO 1,500 mg DAILY JANINE Administration Budesonide/Formoterol Fumarate 2 puff 01/13/19 10:00 01/13/19 22:48 Symbicort 80/4.5mcg - IH 2 puff BID JANINE Administration Carvedilol 12.5 mg 01/13/19 10:00 01/14/19 10:42 Coreg - PO Not Given BID JANINE Dronabinol 5 mg 01/13/19 17:30 01/14/19 10:36 Marinol - PO 5 mg BIDWM JANINE Administration Fenofibric Acid 135 mg 01/13/19 10:00 01/14/19 10:36 Trilipix - PO 135 mg DAILY JANINE Administration Folic Acid 1 mg 01/13/19 10:00 01/14/19 10:36 Folic Acid - PO 1 mg DAILY JANINE Administration Gabapentin 300 mg 01/13/19 10:00 01/14/19 10:36 Neurontin - PO 300 mg DAILY JANINE Administration Guaifenesin 10 ml 01/13/19 08:42 Robitussin - PO Q6H PRN COUGH Morphine Sulfate 2 mg 01/12/19 19:11 01/14/19 10:37 Morphine Sulfate SQ 2 mg Q3H PRN Administration PAIN LEVEL 1-5 Polyethylene Glycol 17 gm 01/13/19 10:00 01/14/19 10:42 Miralax (For Daily Use) - PO 17 gm DAILY JANINE Administration Impression 1. CKD 2. mesothelioma 3. HTN 4. hyperkalemia 5. a-fib 6. 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 CYNDIE Plan - pt is doing poorly - no new labs - family do not want HD or invasive measures - will need to clarify GOC and if they want bloodwork drawn - monitor volume statis - palliative care follow up
[2019-01-14] MEDS: ATOVAQUONE 750 MG/5 ML (UNIT-DOSE PACKAGING) PO SCH (12:22)
[2019-01-14] MEDS: BUDESONIDE/FORMETEROL FUMARATE 80/4.5 mcg INHALER IH SCH ×2 (12:22→22:01)
--- NOTE | 2019-01-14 12:50 | PN ---
Progress Note (short form) - Note Progress Note: PULMONARY Received morphine earlier, somnolent but arousable. Family states improvement in breathing with morphine. Vital Signs Period Temp Pulse Resp BP Sys/Clements Pulse Ox Last 24 Hr 96.4 F-97.8 F 82-92 16-18 87-109/56-68 98 Gen: somnolent but arousable Heart: RRR Lung: decreased breath sounds at the bases Abd: soft, nontender Ext: + edema CBC, BMP 01/12/19 05:45 01/12/19 05:45 Active Medications Acetaminophen (Tylenol -) 650 mg PO Q6H PRN PRN Reason: FEVER Albuterol/Ipratropium (Duoneb -) 1 amp NEB Q4H PRN PRN Reason: SHORTNESS OF BREATH Amiodarone HCl (Cordarone -) 200 mg PO DAILY [facility] Last Admin: 01/14/19 10:36 Dose: 200 mg Apixaban (Eliquis -) 5 mg PO BID [facility] Last Admin: 01/14/19 10:37 Dose: 5 mg Atovaquone (Mepron -) 1,500 mg PO DAILY [facility] Last Admin: 01/14/19 12:22 Dose: 1,500 mg Budesonide/Formoterol Fumarate (Symbicort 80/4.5mcg -) 2 puff IH BID [facility] Last Admin: 01/14/19 12:22 Dose: 2 puff Carvedilol (Coreg -) 12.5 mg PO BID [facility] Last Admin: 01/14/19 10:42 Dose: Not Given Dronabinol (Marinol -) 5 mg PO BIDWM [facility] Last Admin: 01/14/19 10:36 Dose: 5 mg Fenofibric Acid (Trilipix -) 135 mg PO DAILY [facility] Last Admin: 01/14/19 10:36 Dose: 135 mg Folic Acid (Folic Acid -) 1 mg PO DAILY [facility] Last Admin: 01/14/19 10:36 Dose: 1 mg Gabapentin (Neurontin -) 300 mg PO DAILY [facility] Last Admin: 01/14/19 10:36 Dose: 300 mg Guaifenesin (Robitussin -) 10 ml PO Q6H PRN PRN Reason: COUGH Morphine Sulfate (Morphine Sulfate) 2 mg SQ Q3H PRN PRN Reason: PAIN LEVEL 1-5 Last Admin: 01/14/19 10:37 Dose: 2 mg Polyethylene Glycol (Miralax (For Daily Use) -) 17 gm PO DAILY [facility]ANINE Last Admin: 01/14/19 10:42 Dose: 17 gm A/P Acute on Chronic Diastolic Heart Failure Constrictive Pericarditis Advanced Mesothelioma Paroxysmal Atrial Fibrillation HTN CKD - rate controlled - continue anticoagulation - titrate morphine to comfort - agree with palliative placement
--- NOTE | 2019-01-14 14:21 | PN ---
Progress Note, Physician - Current Medication List Current Medications: Active Medications Acetaminophen (Tylenol -) 650 mg PO Q6H PRN PRN Reason: FEVER Albuterol/Ipratropium (Duoneb -) 1 amp NEB Q4H PRN PRN Reason: SHORTNESS OF BREATH Amiodarone HCl (Cordarone -) 200 mg PO DAILY [facility] Last Admin: 01/14/19 10:36 Dose: 200 mg Apixaban (Eliquis -) 5 mg PO BID [facility] Last Admin: 01/14/19 10:37 Dose: 5 mg Atovaquone (Mepron -) 1,500 mg PO DAILY [facility] Last Admin: 01/14/19 12:22 Dose: 1,500 mg Budesonide/Formoterol Fumarate (Symbicort 80/4.5mcg -) 2 puff IH BID [facility] Last Admin: 01/14/19 12:22 Dose: 2 puff Carvedilol (Coreg -) 12.5 mg PO BID [facility] Last Admin: 01/14/19 10:42 Dose: Not Given Dronabinol (Marinol -) 5 mg PO BIDWM [facility] Last Admin: 01/14/19 10:36 Dose: 5 mg Fenofibric Acid (Trilipix -) 135 mg PO DAILY [facility] Last Admin: 01/14/19 10:36 Dose: 135 mg Folic Acid (Folic Acid -) 1 mg PO DAILY [facility] Last Admin: 01/14/19 10:36 Dose: 1 mg Gabapentin (Neurontin -) 300 mg PO DAILY [facility] Last Admin: 01/14/19 10:36 Dose: 300 mg Guaifenesin (Robitussin -) 10 ml PO Q6H PRN PRN Reason: COUGH Morphine Sulfate (Morphine Sulfate) 2 mg SQ Q3H PRN PRN Reason: PAIN LEVEL 1-5 Last Admin: 01/14/19 10:37 Dose: 2 mg Polyethylene Glycol (Miralax (For Daily Use) -) 17 gm PO DAILY [facility] Last Admin: 01/14/19 10:42 Dose: 17 gm - Objective Vital Signs: Vital Signs Temperature 96.4 F L 01/14/19 02:00 Pulse Rate 86 01/14/19 02:00 Respiratory Rate 18 01/14/19 02:00 Blood Pressure 95/58 L 01/14/19 02:00 O2 Sat by Pulse Oximetry (%) 98 01/13/19 21:00 Labs: CBC, BMP 01/12/19 05:45 01/12/19 05:45 INR, PTT INR Cancelled 01/04/19 21:17
--- NOTE | 2019-01-14 18:16 | PN ---
Progress Note, Physician History of Present Illness: more awake today - Current Medication List Current Medications: Active Medications Acetaminophen (Tylenol -) 650 mg PO Q6H PRN PRN Reason: FEVER Albuterol/Ipratropium (Duoneb -) 1 amp NEB Q4H PRN PRN Reason: SHORTNESS OF BREATH Amiodarone HCl (Cordarone -) 200 mg PO DAILY [facility] Last Admin: 01/14/19 10:36 Dose: 200 mg Apixaban (Eliquis -) 5 mg PO BID [facility] Last Admin: 01/14/19 10:37 Dose: 5 mg Atovaquone (Mepron -) 1,500 mg PO DAILY [facility] Last Admin: 01/14/19 12:22 Dose: 1,500 mg Budesonide/Formoterol Fumarate (Symbicort 80/4.5mcg -) 2 puff IH BID [facility] Last Admin: 01/14/19 12:22 Dose: 2 puff Carvedilol (Coreg -) 12.5 mg PO BID [facility] Last Admin: 01/14/19 10:42 Dose: Not Given Dronabinol (Marinol -) 5 mg PO BIDWM [facility] Last Admin: 01/14/19 16:53 Dose: 5 mg Fenofibric Acid (Trilipix -) 135 mg PO DAILY [facility] Last Admin: 01/14/19 10:36 Dose: 135 mg Folic Acid (Folic Acid -) 1 mg PO DAILY [facility] Last Admin: 01/14/19 10:36 Dose: 1 mg Gabapentin (Neurontin -) 300 mg PO DAILY [facility] Last Admin: 01/14/19 10:36 Dose: 300 mg Guaifenesin (Robitussin -) 10 ml PO Q6H PRN PRN Reason: COUGH Morphine Sulfate (Morphine Sulfate) 2 mg SQ Q3H PRN PRN Reason: PAIN LEVEL 1-5 Last Admin: 01/14/19 10:37 Dose: 2 mg Polyethylene Glycol (Miralax (For Daily Use) -) 17 gm PO DAILY [facility] Last Admin: 01/14/19 10:42 Dose: 17 gm - Objective Vital Signs: Vital Signs Temperature 97.7 F 01/14/19 14:00 Pulse Rate 89 01/14/19 14:00 Respiratory Rate 20 01/14/19 14:00 Blood Pressure 102/64 01/14/19 14:00 O2 Sat by Pulse Oximetry (%) 98 01/13/19 21:00 Constitutional: Yes: No Distress HENT: Yes: Atraumatic Neck: Yes: Supple Cardiovascular: Yes: Regular Rate and Rhythm Respiratory: Yes: Rhonchi Gastrointestinal: Yes: Normal Bowel Sounds Extremities: Yes: WNL Edema: Yes Edema: LLE: 2+, RLE: 2+ Neurological: Yes: Alert, Oriented Labs: CBC, BMP 01/12/19 05:45 01/12/19 05:45 INR, PTT INR Cancelled 01/04/19 21:17 Problem List - Problems (1) Pedal edema Assessment/Plan: not on diuretics nephro on board renal functions getting worse Code(s): R60.0 - LOCALIZED EDEMA (2) CYNDIE (acute kidney injury) Code(s): N17.9 - ACUTE KIDNEY FAILURE, UNSPECIFIED (3) Acute diastolic heart failure Code(s): I50.31 - ACUTE DIASTOLIC (CONGESTIVE) HEART FAILURE (4) Afib Assessment/Plan: on meds on AC Code(s): I48.91 - UNSPECIFIED ATRIAL FIBRILLATION (5) CHF exacerbation Code(s): I50.9 - HEART FAILURE, UNSPECIFIED Qualifiers: Heart failure type: unspecified Qualified Code(s): I50.9 - Heart failure, unspecified (6) COPD (chronic obstructive pulmonary disease) Assessment/Plan: prn nebs and oxygen Code(s): J44.9 - CHRONIC OBSTRUCTIVE PULMONARY DISEASE, UNSPECIFIED Qualifiers: COPD type: unspecified COPD Qualified Code(s): J44.9 - Chronic obstructive pulmonary disease, unspecified (7) HTN (hypertension) Assessment/Plan: on meds monitor Code(s): I10 - ESSENTIAL (PRIMARY) HYPERTENSION (8) Mesothelioma (pleural) Assessment/Plan: ct scan report seen disease process progressing Code(s): C45.0 - MESOTHELIOMA OF PLEURA (9) CKD (chronic kidney disease) Code(s): N18.9 - CHRONIC KIDNEY DISEASE, UNSPECIFIED (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
--- NOTE | 2019-01-14 20:29 | PN ---
Progress Note (short form) - Note Progress Note: PATIENT SEEN AND EXAMINED SLEEPS GOOD DEAL OF DAY OCASSIONALLY AROUSABLE LITTLE INTAKE DAUGHTER AT BEDSIDE COMFORT CARE
[2019-01-15 01:40] VITALS: BP 94/61; PULSE 105; TEMP 98.3
--- NOTE | 2019-01-15 06:18 | HOSP ---
Subjective - Review of Symptoms Events since last encounter: called to see patient for unresponsiveness, Confirmed DNR, comfort care status. on exam the patient does not respond to verbal or physical stimuli. Absent heart , and breath sounds. Absent peripheral pulses. Pupils are fixed and dilated. Patient was pronounced at 05:49. Dr. Ramirez notified by RN. Next of kin/ family) Usha Fitch was notified Autopsy declined. DATE TIME: 01/15/2019, 05:49 CAUSES: Acute on Chronic Diastolic Heart Failure Constrictive Pericarditis Advanced Mesothelioma Paroxysmal Atrial Fibrillation HTN CKD Provider pronouncing : Dewayne Schneider NP Attending Physician of Record: Dr. Meyers Resuscitations: Comfort care, DNR Physical Examination Vital Signs: Vital Signs Pulse Rate 0 Respiratory Rate 0 O2 Sat by Pulse Oximetry (%) 0 Labs:
[2019-01-15] MEDS: AMIODARONE HCL 200 MG TABLET (FP) PO SCH (11:42)
[2019-01-15] MEDS: DRONABINOL 2.5 MG CAPSULE PO SCH (11:42)
[2019-01-15] MEDS: CARVEDILOL 12.5 MG TABLET (FP) PO SCH (11:42)
[2019-01-15] MEDS: FOLIC ACID 1 MG TABLET (FP) PO SCH (11:43)
[2019-01-15] MEDS: POLYETHYLENE GLYCOL 3350 119 GM BTL PO SCH (11:43)
[2019-01-15] MEDS: ATOVAQUONE 750 MG/5 ML (UNIT-DOSE PACKAGING) PO SCH (11:43)
[2019-01-15] MEDS: APIXABAN 5 MG TABLET PO SCH (11:43)
[2019-01-15] MEDS: BUDESONIDE/FORMETEROL FUMARATE 80/4.5 mcg INHALER IH SCH (11:44)
[2019-01-15] MEDS: GABAPENTIN 300 MG CAPSULE (FP) PO SCH (11:44)
[2019-01-15] MEDS: FENOFIBRIC ACID 135 MG CAP PO SCH (11:45)
--- NOTE | 2019-01-15 16:45 | DS ---
Physical Examination Vital Signs: Vital Signs Temperature 98.3 F 01/15/19 01:00 Pulse Rate 105 H 01/15/19 01:00 Respiratory Rate 20 01/15/19 01:00 Blood Pressure 94/61 01/15/19 01:00 O2 Sat by Pulse Oximetry (%) 98 01/14/19 21:00 Labs: CBC, BMP 01/12/19 05:45 01/12/19 05:45 Discharge Summary Reason For Visit: SHORTNESS OF BREATH/ACUTE EXACERBATION OF CHRONIC Condition: Stable - Instructions Referrals: Gael Maddox MD [Primary Care Provider] - Disposition: - Home Medications Comprehensive Discharge Medication List: Ambulatory Orders Amlodipine Besylate [Norvasc -] 5 mg PO DAILY 08/11/17 Carvedilol 6.25 mg PO BID 08/11/17 Fenofibrate [Lipofen] 160 mg PO DAILY 08/11/17 Folic Acid 1 mg PO DAILY 08/11/17 Omeprazole Magnesium [Prilosec Otc] 20 mg PO ONCE 08/11/17 Budesonide/Formeterol Fumarate [SYMBICORT 80/4.5mcg -] 2 inh IH BID 07/12/18 Ipratropium/Albuterol Sulfate [Combivent Respimat 20-100 Mcg] 4 gm IH BID Albuterol 2.5/Ipratropium 0.5 [Duoneb -] 1 neb IH QID PRN #3 vial.neb. 07/20/18 Apixaban [Eliquis] 5 mg PO BID #60 tablet 07/20/18 Nebulizer [Compact Ultrasonic Nebulizer] 1 each MC DAILY PRN #1 each 07/20/18 Potassium Chloride 20 meq PO DAILY 09/02/18 Amiodarone HCl [Cordarone -] 200 mg PO DAILY 12/28/18 Atovaquone [Mepron -] 1,500 mg PO DAILY 12/28/18 Fluconazole [Diflucan -] 100 mg PO DAILY 12/28/18 Gabapentin [Neurontin -] 300 mg PO DAILY 12/28/18 L.acidoph,Paracasei, B.lactis [Probiotic] 1 tab PO ASDIR 12/28/18 Nystatin 100,000 unit PO QID 12/28/18 Prednisone 5 mg PO ASDIR 12/28/18 hydrOXYzine HCL [Atarax -] 10 mg PO TID 12/28/18 crtificate done
== END 2019-01-15 05:49 | disposition expired | DRG 314 ==
LOC: JER 16:47 → JERBED 21:29 → J4W 01-05 16:28
PROVIDERS: ADMIT Internal Medicine; ATTEND Internal Medicine
PROC: 30233N1 Transfusion of Nonautologous Red Blood Cells into Peripheral Vein, Percutaneous Approach (ICD-10-PCS; principal; 2019-01-09)
DX: I31.1 Chronic constrictive pericarditis (principal); I50.31 Acute diastolic (congestive) heart failure; D61.810 Antineoplastic chemotherapy induced pancytopenia; J96.00 Acute respiratory failure, unspecified whether with hypoxia or hypercapnia; C45.0 Mesothelioma of pleura; I13.0 Hypertensive heart and chronic kidney disease with heart failure and stage 1 through stage 4 chronic kidney disease, or unspecified chronic kidney disease; N17.9 Acute kidney failure, unspecified; I47.1 Supraventricular tachycardia; J44.9 Chronic obstructive pulmonary disease, unspecified; I50.9 Heart failure, unspecified; R60.0 Localized edema; I46.9 Cardiac arrest, cause unspecified; I48.0 Paroxysmal atrial fibrillation; N18.9 Chronic kidney disease, unspecified; E87.5 Hyperkalemia; D64.9 Anemia, unspecified; E87.70 Fluid overload, unspecified
CPT/HCPCS: 36415; 36430; 36511; 36600; 71045-TC-FY; 71046-TC-FY; 71250-TC; 72192-TC; 74150-TC; 76775-TC; 80053; 81003; 82140; 82375; 82436; 82550; 82607; 82728; 82746; 82803; 83010; 83050; 83516; 83520; 83540; 83605; 83615; 83735; 83880; 84133; 84155; 84165; 84300; 84439; 84443; 84466; 84484; 85025; 85027; 85044; 86038; 86225; 86256; 86704; 86706; 86707; 86708; 86709; 86850; 86900; 86901; 86922; 87040; 87340; 87522; 93005; 93010; 93306-TC; 94640; 99284-25; P9038; P9058